=== PATIENT | male | born 1955 | race Caucasian/White ===

== ENCOUNTER 2016-08-26 14:34 | Inpatient (IN) | payer OTHER ==
[2016-08-26] MEDS ORDERED: SODIUM CHLORIDE 0.9% 500 ML IV STA (14:53)
[2016-08-26] MEDS ORDERED: RX INFO: IV CONTRAST WAS GIVEN 1 EACH MISC MISCELLANE PRN (14:53)
[2016-08-26] MEDS ORDERED: PANTOPRAZOLE 40 MG/10 ML VIAL IVP STA (14:53)
[2016-08-26] MEDS ORDERED: SODIUM CHLORIDE 0.9% 1,000 ML IV STA (14:53)
[2016-08-26] MEDS ORDERED: ONDANSETRON 4 MG/2 ML VIAL IVP STA (14:53)
[2016-08-26] MEDS ORDERED: MORPHINE SULFATE 2 MG/ML SYRINGE IVP STA (14:55)
--- NOTE | 2016-08-26 14:59 | ED ---
General Adult HPI - General Chief complaint: GI Bleed Stated complaint: rectal bleeding Time Seen by Provider: 08/26/16 14:46 Source: patient, RN notes reviewed Mode of arrival: wheelchair Limitations: no limitations - History of Present Illness Initial comments: Patient is a pleasant 60-year-old male presenting to the emergency department complaining of rectal bleeding. Patient had a couple episodes last night as well as today. Patient does have some cramping of the abdomen. Patient has some mild nausea. No vomiting. No history of similar symptoms previously. Patient does take Plavix. No history of hemorrhoids. - Related Data Home Medications Medication Instructions Recorded Confirmed Clopidogrel Bisulfate [Clopidogrel] 75 mg PO DAILY 02/04/14 08/26/16 Nitroglycerin Sl Tabs [Nitrostat] 0.4 mg SUBLINGUAL Q5M PRN 03/21/14 08/26/16 buPROPion XL [Wellbutrin XL] 300 mg PO DAILY 05/09/14 08/26/16 glipiZIDE XL [Glucotrol XL] 10 mg PO DAILY PRN 05/09/14 08/26/16 Albiglutide [Tanzeum] 30 mg SQ WE 08/26/16 08/26/16 Gabapentin [Neurontin] 300 mg PO TID 08/26/16 08/26/16 Magnesium Oxide [Mag-Ox] 400 mg PO DAILY 08/26/16 08/26/16 Potassium 99 mg PO DAILY 08/26/16 08/26/16 Previous Rx's Medication Instructions Recorded Lisinopril [Zestril] 5 mg PO DAILY #30 tab 05/12/14 Allergies Allergy/AdvReac Type Severity Reaction Status Date / Time Penicillins Allergy Unknown Verified 08/26/16 16:01 Childhood metformin AdvReac Nausea & Verified 08/26/16 16:01 Vomiting Review of Systems ROS Statement: Those systems with pertinent positive or pertinent negative responses have been documented in the HPI. ROS Other: All systems not noted in ROS Statement are negative. Constitutional: Denies: fever Eyes: Denies: eye pain ENT: Denies: ear pain Respiratory: Denies: cough Cardiovascular: Denies: chest pain Endocrine: Reports: fatigue Gastrointestinal: Reports: abdominal pain, nausea, hematochezia Genitourinary: Denies: dysuria Musculoskeletal: Denies: back pain Skin: Denies: rash Past Medical History Past Medical History: Coronary Artery Disease (CAD), Chest Pain / Angina, Diabetes Mellitus, Hyperlipidemia, Hypertension, Myocardial Infarction ([place]), Neurologic Disorder, Renal Disease Additional Past Medical History / Comment(s): SHINGLES RT SHOULDER/NECK SINCE 03-11-14 , CHRONIC BACK PAIN, LT MIDDLE FINGER INFECTION(STARTED 1.5 WEEKS AGO) Last Myocardial Infarction Date:: 2012 History of Any Multi-Drug Resistant Organisms: None Reported Past Surgical History: Bowel Resection, Heart Catheterization With Stent, Tonsillectomy Additional Past Surgical History / Comment(s): LT NEPHRECTOMY D/T NEOPLASM. HX PHIMOSIS HAD ADULT CIRCUMCISION 03-22-14, STENTS TO RCA AND LAD. Past Anesthesia/Blood Transfusion Reactions: No Reported Reaction Date of Last Stent Placement:: 05-15-08, 06-29-13, Past Psychological History: No Psychological Hx Reported Additional Psychological History / Comment(s): c/o dizziness, ataxia difficulty walking. Smoking Status: Current every day smoker Past Alcohol Use History: Occasional Additional Past Alcohol Use History / Comment(s): started smoking at age 12, quit 1 year ago Past Drug Use History: None Reported - Past Family History Father Family Medical History: Diabetes Mellitus Sister(s) Family Medical History: Deep Vein Thrombosis (DVT) General Exam Limitations: no limitations General appearance: alert, in no apparent distress Head exam: Present: atraumatic, normocephalic Eye exam: Present: normal appearance, PERRL ENT exam: Present: normal oropharynx Neck exam: Present: normal inspection Respiratory exam: Present: normal lung sounds bilaterally Cardiovascular Exam: Present: regular rate, normal rhythm Expanded Peripheral pulses: 2+: Dorsalis Pedis (R), Dorsalis Pedis (L) GI/Abdominal exam: Present: soft, tenderness (Mild upper abdominal tenderness, moderate lower abdominal tenderness.), normal bowel sounds. Absent: distended, guarding, rebound, rigid, pulsatile mass Extremities exam: Present: normal inspection. Absent: pedal edema, calf tenderness Neurological exam: Present: alert Psychiatric exam: Present: normal affect, normal mood Skin exam: Absent: rash Course Vital Signs 08/26/16 14:39 Temperature 98.5 F Pulse Rate 85 Respiratory 20 Rate Blood Pressure 148/76 O2 Sat by Pulse 95 Oximetry Medical Decision Making - Medical Decision Making Case discussed with Dr. Antoine, who will admit for Dr. Armenta. Patient updated. - Lab Data Result diagrams: 08/26/16 15:32 08/26/16 15:32 Lab Results 08/26/16 08/26/16 08/26/16 Range/Units 15:32 15:32 15:32 WBC 7.9 (3.8-10.6) k/uL RBC 5.14 (4.30-5.90) m/uL Hgb 15.7 (13.0-17.5) gm/dL Hct 46.0 (39.0-53.0) % MCV 89.6 (80.0-100.0) fL MCH 30.5 (25.0-35.0) pg MCHC 34.0 (31.0-37.0) g/dL RDW 13.8 (11.5-15.5) % Plt Count 193 (150-450) k/uL Neutrophils % 79 % Lymphocytes % 12 % Monocytes % 5 % Eosinophils % 1 % Basophils % 1 % Neutrophils # 6.2 (1.3-7.7) k/uL Lymphocytes # 0.9 L (1.0-4.8) k/uL Monocytes # 0.4 (0-1.0) k/uL Eosinophils # 0.1 (0-0.7) k/uL Basophils # 0.1 (0-0.2) k/uL PT (9.0-12.0) sec INR (<1.1) APTT (22.0-30.0) sec Sodium 140 (137-145) mmol/L Potassium 3.8 (3.5-5.1) mmol/L Chloride 103 (98-107) mmol/L Carbon Dioxide 24 (22-30) mmol/L Anion Gap 13 mmol/L BUN 11 (9-20) mg/dL Creatinine 1.01 (0.66-1.25) mg/dL Est GFR (MDRD) Af Amer >60 (>60 ml/min/1.73 sqM) Est GFR (MDRD) Non-Af >60 (>60 ml/min/1.73 sqM) Glucose 243 H (74-99) mg/dL Calcium 9.3 (8.4-10.2) mg/dL Total Bilirubin 0.9 (0.2-1.3) mg/dL AST 36 (17-59) U/L ALT 60 (21-72) U/L Alkaline Phosphatase 57 (38-126) U/L Total Creatine Kinase 109 (55-170) U/L CK-MB (CK-2) 2.6 H* (0.0-2.4) ng/mL CK-MB (CK-2) Rel Index 2.4 Troponin I <0.012 (0.000-0.034) ng/mL Total Protein 7.4 (6.3-8.2) g/dL Albumin 4.3 (3.5-5.0) g/dL Stool Occult Blood (Negative) 08/26/16 08/26/16 Range/Units 15:32 15:39 WBC (3.8-10.6) k/uL RBC (4.30-5.90) m/uL Hgb (13.0-17.5) gm/dL Hct (39.0-53.0) % MCV (80.0-100.0) fL MCH (25.0-35.0) pg MCHC (31.0-37.0) g/dL RDW (11.5-15.5) % Plt Count (150-450) k/uL Neutrophils % % Lymphocytes % % Monocytes % % Eosinophils % % Basophils % % Neutrophils # (1.3-7.7) k/uL Lymphocytes # (1.0-4.8) k/uL Monocytes # (0-1.0) k/uL Eosinophils # (0-0.7) k/uL Basophils # (0-0.2) k/uL PT 11.1 (9.0-12.0) sec INR 1.1 (<1.1) APTT 24.1 (22.0-30.0) sec Sodium (137-145) mmol/L Potassium (3.5-5.1) mmol/L Chloride (98-107) mmol/L Carbon Dioxide (22-30) mmol/L Anion Gap mmol/L BUN (9-20) mg/dL Creatinine (0.66-1.25) mg/dL Est GFR (MDRD) Af Amer (>60 ml/min/1.73 sqM) Est GFR (MDRD) Non-Af (>60 ml/min/1.73 sqM) Glucose (74-99) mg/dL Calcium (8.4-10.2) mg/dL Total Bilirubin (0.2-1.3) mg/dL AST (17-59) U/L ALT (21-72) U/L Alkaline Phosphatase (38-126) U/L Total Creatine Kinase (55-170) U/L CK-MB (CK-2) (0.0-2.4) ng/mL CK-MB (CK-2) Rel Index Troponin I (0.000-0.034) ng/mL Total Protein (6.3-8.2) g/dL Albumin (3.5-5.0) g/dL Stool Occult Blood Positive (Negative) Disposition Clinical Impression: Lower GI hemorrhage Disposition: ADMITTED IP TO THIS HOSP
[2016-08-26 15:52] LABS: Basophils # (A) 0.1 k/uL (0-0.2); Basophils % (A) 1 %; CH 31.6; CHCM 35.5; Eosinophils # (A) 0.1 k/uL (0-0.7); Eosinophils % (A) 1 %; HDW 2.86; HGB 15.7 gm/dL (13.0-17.5); Luc # (Auto) 0.21; Luc % (Auto) 3; Lymphocytes # (A) 0.9 k/uL (1.0-4.8); Lymphocytes % (A) 12 %; MCH 30.5 pg (25.0-35.0); MCV 89.6 fL (80.0-100.0); Monocytes # (A) 0.4 k/uL (0-1.0); Monocytes % (A) 5 %; Neutrophils # (A) 6.2 k/uL (1.3-7.7); Neutrophils % (A) 79 %; RBC 5.14 m/uL (4.30-5.90); RDW 13.8 % (11.5-15.5); WBC 7.9 k/uL (3.8-10.6); WBC (Perox) 7.54
[2016-08-26 15:56] LABS: INR 1.1 (<1.1); Partial Thromboplastin Time 24.1 sec (22.0-30.0); Prothrombin Time 11.1 sec (9.0-12.0)
[2016-08-26 15:59] LABS: ALT 60 U/L (21-72); AST 36 U/L (17-59); Alkaline Phosphatase 57 U/L (38-126); Anion Gap 13 mmol/L; Blood Urea Nitrogen 11 mg/dL (9-20); Calcium 9.3 mg/dL (8.4-10.2); Carbon Dioxide 24 mmol/L (22-30); Chloride 103 mmol/L (98-107); Glucose 243 mg/dL (74-99); Non-African American GFR(MDRD) >60 (>60 ml/min/1.73 sqM); Potassium 3.8 mmol/L (3.5-5.1); Sodium 140 mmol/L (137-145); Total Bilirubin 0.9 mg/dL (0.2-1.3); Total Protein 7.4 g/dL (6.3-8.2)
[2016-08-26 16:00] LABS: Creatine Kinase 109 U/L (55-170)
[2016-08-26 16:13] LABS: Creatine Kinase MB 2.6 ng/mL (0.0-2.4); Troponin I <0.012 ng/mL (0.000-0.034)
[2016-08-26] MEDS ORDERED: HYDROmorphone 1 MG/ML 1 ML SYRINGE IVP STA (16:20)
[2016-08-26] MEDS ORDERED: NALOXONE 0.4 MG/ML 1 ML VIAL IV PRN (16:40)
--- NOTE | 2016-08-26 17:09 | CT ---
EXAMINATION TYPE: CT abdomen pelvis w con DATE OF EXAM: 08/26/2016 4:53 PM COMPARISON: Prior CT scan 10 January 2014 HISTORY: Pelvic pain and rectal bleeding CT DLP: 1040 mGycm Automated exposure control for dose reduction was used. TECHNIQUE: Helical acquisition of images from the lung bases through the pelvis have been completed. CONTRAST: Performed without Oral Contrast and with IV Contrast, patient injected with 100 mL of Visipaque 320. FINDINGS: LUNG BASES: No significant abnormality is appreciated. Coronary artery calcification suspected AORTA: No significant abnormality is appreciated. LIVER/GB: The gallbladder is contracted. Liver shows low attenuation possibly due to fatty infiltrati on. PANCREAS: Suspect there is a duodenal diverticulum at the third or fourth portion, there is an air-fl uid level at the level of the common bile duct, the diverticulum-like kidney measures approximately 2 .5 cm SPLEEN: No significant abnormality is seen. Splenule is stable posteriorly. ADRENALS: No significant abnormality is seen. KIDNEYS: Left kidney is absent. Right kidney shows a large cystic focus measuring approximately 5.9 c m at the lower pole, suspect there are some nonobstructive calculi at the mid to lower pole, largest measures approximately 9 mm at the lower pole, mid pole calculus may be present measuring 5 mm. REPRODUCTIVE ORGANS: Prostate is enlarged and shows associated calcifications and/or hydrocele suspec malina the scrotum. BOWEL: Diverticular changes associated with the colon. There is no bowel obstruction. Surgical clips are present in the pelvis. FREE AIR: No Free Air visible. ASCITES: None visible. PELVIC ADENOPATHY: None visualized. RETROPERITONEAL ADENOPATHY: No Retroperitoneal Adenopathy visible. URINARY BLADDER: No significant abnormality is seen. OSSEOUS STRUCTURES: No significant abnormality is seen. IMPRESSION: DIVERTICULOSIS. INTERVAL DEVELOPMENT OF NONOBSTRUCTIVE RIGHT-SIDED NEPHROLITHIASIS. POSSIBLE FATTY IN FILTRATION OF THE LIVER VERSUS HEPATOCELLULAR DISEASE. DUODENAL DIVERTICULUM. POSTOP CHANGES.
[2016-08-26] MEDS: SODIUM CHLORIDE 0.9% 1,000 ML IV SCH (18:38)
[2016-08-26] MEDS ORDERED: GLIPIZIDE 10 MG PO PRN (18:55)
[2016-08-26 20:28] LABS: Hemoglobin A1C 7.3 % (4.2-6.1)
[2016-08-26 20:53] LABS: Glucose,Whole Blood 132 mg/dL (75-99)
[2016-08-26] MEDS: GABAPENTIN 300 MG CAP PO SCH (21:32)
[2016-08-26] MEDS: MORPHINE SULFATE 4 MG/ML SYRINGE IVP PRN (21:32)
--- NOTE | 2016-08-26 23:29 | HP ---
DATE OF ADMISSION: 08/26/2016 REASON FOR ADMISSION: Rectal bleeding. HISTORY OF PRESENTING ILLNESS: This is a 60-year-old gentleman with significant history of CAD, currently maintained on Plavix. He comes into the hospital with 2 episodes of bleeding per rectum. Patient states that he was in good health until 2 days prior to admission. States that he was driving to work, noted some distention; initially thought it was secondary to gas; however, he felt blood on his car seat. Thereafter patient was noted to have another bowel movement overnight which was bright red in color. Patient denies noticing any clots. Patient had a colonoscopy over 5 years ago and was apparently told it was within normal limits. Patient states that he does not use any significant amount of NSAIDs. Only medications are aspirin; however, for any lower extremity pain he does tend to take aspirin 325 mg, sometimes 2 even. At the time of my evaluation, patient denies any symptoms of dizziness, chest pain, nausea or vomiting. Patient states that he has some mild abdominal discomfort. He describes it as a crampy pain diffusely. No significant relief on having a bowel movement. During the episode, patient did state that he was unsteady and felt weak. Past medical history includes: 1. CAD. 2. Dyslipidemia. 3. Depression. 4. Hypertension. 5. Peripheral neuropathy. Past surgical history includes: 1. Colonoscopy. 2. Cardiac catheterization. SOCIAL HISTORY: Currently smokes cigarettes; significantly decreased. No significant alcohol use. Denies any illicit drug use. 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 FAMILY HISTORY: Not pertinent to current admission. Denies any history of colorectal cancer. REVIEW OF SYSTEMS: Fourteen-point review of system was done; none pertinent other than those mentioned above. Medications include: 1. Glipizide. 2. Wellbutrin. 3. Potassium. 4. Nitrostat. 5. Mag-Ox. 6. Vistaril. 7. Neurontin. 8. Clopidogrel. 9. Tanzeum. Medication doses were reviewed and appropriately reconciled. PHYSICAL EXAM: VITALS: Temperature 97.2, heart rate 67, blood pressure 145/77. Saturating 95% on room air. GENERALLY: Patient appears to be alert, oriented x3. HEENT: The pupils are equal and reactive to light and accommodation. HEART: S1, S2 present. No murmur appreciated. LUNGS: Good air entry. No wheezing or rhonchi noted. ABDOMINAL EXAM: Soft, nontender, no organomegaly appreciated. GENITOURINARY: No [place] in place. EXTREMITIES: Pulses can be palpated distally. Denies any tenderness on gross palpation. SKIN: On a gross skin exam does not appear to have any purpura or any skin rashes that were noted. NEUROLOGICALLY: Grossly cranial nerves 2-12 intact. No motor or sensory deficits noted. LABORATORY DATA: Hemoglobin 15.7, hematocrit 46, platelets of 193. White count 7.9. Sodium 140, potassium 3.8, chloride 103, bicarb 24. BUN 11, creatinine 1.01. Albumin of 4.3. Stool occult was positive. ASSESSMENT AND PLAN: 1. Acute lower gastrointestinal bleeding, likely a diverticular bleed. 2. Coronary artery disease. 3. Dyslipidemia. 4. Hypertension. 5. Depression. 6. Ongoing tobacco use. 7. Diabetes mellitus, type 2. 8. Diabetic neuropathy PLAN: Repeat hemoglobin in the a.m. Will discontinue and hold Plavix. Patient's last stent or PCI was over 2 years ago. Due to the acute bleed, we will hold off on all antiplatelet agents and avoid NSAID agents as well. Will start Protonix IV 40 mg; however, patient will be referred to a supervisor water softener service. Patient would benefit from a colonoscopy to delineate the site of bleeding. Again, due to the bleeding, patient's DVT prophylaxis will be maintained with SCDs. Med reconciliation with glipizide 10 mg will be done and insulin sliding scale will be initiated. Will follow.
[2016-08-27] MEDS: SODIUM CHLORIDE 0.9% 1,000 ML IV SCH ×2 (06:08→20:57)
[2016-08-27 06:43] LABS: Glucose,Whole Blood 122 mg/dL (75-99)
[2016-08-27] MEDS ORDERED: BISACODYL 5 MG TABLET.DR PO STA (09:23)
[2016-08-27 09:28] LABS: Basophils # (A) 0.1 k/uL (0-0.2); Basophils % (A) 1 %; CHCM 34.1; Eosinophils # (A) 0.2 k/uL (0-0.7); Eosinophils % (A) 2 %; HCT 44.4 % (39.0-53.0); HDW 2.89; HGB 14.6 gm/dL (13.0-17.5); Luc # (Auto) 0.21; Luc % (Auto) 3; Lymphocytes # (A) 1.1 k/uL (1.0-4.8); Lymphocytes % (A) 14 %; MCH 30.1 pg (25.0-35.0); MCHC 32.9 g/dL (31.0-37.0); MCV 91.4 fL (80.0-100.0); Mean Platelet Volume 7.2; Monocytes # (A) 0.4 k/uL (0-1.0); Monocytes % (A) 6 %; Neutrophils # (A) 5.5 k/uL (1.3-7.7); Neutrophils % (A) 74 %; RBC 4.85 m/uL (4.30-5.90); RDW 13.8 % (11.5-15.5); WBC 7.5 k/uL (3.8-10.6); WBC (Perox) 7.33
--- NOTE | 2016-08-27 09:32 | P.CONS ---
History of Present Illness - Reason for Consult Consult date: 08/27/16 Rectal bleeding Requesting physician: Mike Antoine - History of Present Illness 60-year-old gentleman patient Dr. Armenta with a past medical history of abdominal trauma with exploratory surgery 1970 followed by bowel obstruction in the with partial left colon removal, hernia repair with mesh, kidney carcinoma requiring left nephrectomy, nicotine cigarette dependency, diverticulosis, CAD Plavix maintenance, diabetes mellitus, shingles, chronic back pain, hyperlipidemia and hypertension. Presents with 2 day history of lower abdominal cramping with bright red blood per rectum. Denies hematemesis melena fever chills. No recent sick contacts or travels. No recent antibiotics. He's had about 5 burgundy red bowel movements 48 hours last bowel movement yesterday afternoon. No history of GI bleeding. Last colonoscopy more than 10 years ago. No history of EGD or peptic ulcer disease. Takes Plavix daily and occasional full-strength aspirin as needed maybe once a week for arthritic pain. No NSAIDs or alcohol. He reports an intentional weight loss of at least 40 pounds over the last several months due to homeopathic supplements and change in diet. Hemoglobin 15.7. White count 7.9. INR 1.1. BUN 11. Creatinine 1.0. Hemoccult stool positive. CT abdomen and pelvis reported diverticulosis with nonobstructing right nephrolithiasis. Review of Systems Constitutional: Denies fever, chills, sweats, weight gain, or loss. HEENT: Negative for migraines, blurred vision or loss, earaches, drainage, tinnitus, oral mucosal lesions, dysphagia, or odynophagia. Cardiac: CAD, hypertension. Hyperlipidemia. [place]. Negative for chest pain, arrhythmias, or palpitation. Respiratory: Cigarette dependency. Negative for shortness of breath, hemoptysis , cough, or sputum production. Gastrointestinal: See HPI for pertinent findings. Genitourinary: Negative for hematuria, urgency, frequency, polyuria, dysuria, or penile discharge. Musculoskeletal: Chronic back pain. Negative for muscle aches, swelling, arthritis, and arthralgias. Neurologic: Negative for stroke or TIA. Endocrine: Diabetes mellitus. Negative for thyroid problems. Nephrology: Kidney carcinoma left nephrectomy. Skin: Shingles. Negative for rash or itching. Psychiatric: Negative history for depression and anxiety All systems: negative (See HPI) Past Medical History Past Medical History: Coronary Artery Disease (CAD), Cancer, Chest Pain / Angina , CVA/TIA, Diabetes Mellitus, Hyperlipidemia, Hypertension, Myocardial Infarction ([place]), Neurologic Disorder, Renal Disease Additional Past Medical History / Comment(s): SHINGLES RT SHOULDER/NECK SINCE 2013 , CHRONIC BACK PAIN, 2015 cva/tia-no residual effects.neuropathy, 1998 lt kidney tumor(tca), has made changes in his diet and has dropped 40#. Last Myocardial Infarction Date:: 2012 History of Any Multi-Drug Resistant Organisms: None Reported Past Surgical History: Bowel Resection, Heart Catheterization With Stent, Tonsillectomy Additional Past Surgical History / Comment(s): LT NEPHRECTOMY D/T NEOPLASM. HX PHIMOSIS HAD ADULT CIRCUMCISION 03-22-14, STENTS TO RCA AND LAD.cataracts Past Anesthesia/Blood Transfusion Reactions: No Reported Reaction Date of Last Stent Placement:: 05-15-08, 06-29-13, Past Psychological History: No Psychological Hx Reported Additional Psychological History / Comment(s): c/o dizziness, ataxia difficulty walking. Smoking Status: Current every day smoker Past Alcohol Use History: Occasional Additional Past Alcohol Use History / Comment(s): started smoking at age 12, has cut down few cig day Past Drug Use History: None Reported - Past Family History Mother Additional Family Medical History / Comment(s): from complications from broken hip. dad hx lung cancer, emphysema, dm Father Family Medical History: Diabetes Mellitus Sister(s) Family Medical History: Diabetes Mellitus, Deep Vein Thrombosis (DVT) Medications and Allergies Home Medications Medication Instructions Recorded Confirmed Type Clopidogrel Bisulfate [Clopidogrel] 75 mg PO DAILY 02/04/14 08/26/16 History Nitroglycerin Sl Tabs [Nitrostat] 0.4 mg SUBLINGUAL Q5M PRN 03/21/14 08/26/16 History buPROPion XL [Wellbutrin XL] 300 mg PO DAILY 05/09/14 08/26/16 History glipiZIDE XL [Glucotrol XL] 10 mg PO DAILY PRN 05/09/14 08/26/16 History Albiglutide [Tanzeum] 30 mg SQ WE 08/26/16 08/26/16 History Gabapentin [Neurontin] 300 mg PO TID 08/26/16 08/26/16 History Magnesium Oxide [Mag-Ox] 400 mg PO DAILY 08/26/16 08/26/16 History Potassium 99 mg PO DAILY 08/26/16 08/26/16 History Allergies Allergy/AdvReac Type Severity Reaction Status Date / Time Penicillins Allergy Unknown Verified 08/26/16 16:01 Childhood metformin AdvReac Nausea & Verified 08/26/16 16:01 Vomiting Physical Exam Vitals: Vital Signs Temp Pulse Pulse Resp BP BP Pulse Ox 08/27/16 07:00 96.9 F L 63 20 142/81 97 08/26/16 23:00 97.2 F L 65 20 125/80 97 08/26/16 18:46 97.1 F L 67 16 138/76 97 08/26/16 17:51 98.3 F 72 18 140/78 97 08/26/16 17:00 97.2 F L 67 20 145/77 95 Intake and Output 08/26/16 08/27/16 08/27/16 22:59 06:59 14:59 Intake Total 300 Output Total 300 Balance 300 -300 Intake: Oral 300 Output: Urine 300 Other: # Voids 1 # Bowel Movements 2 General appearance: The patient is alert, oriented, in no acute distress. HET: Head is normocephalic and atraumatic. Pupils are equal and reactive. Oropharynx is clear without lesions. Neck: Supple without lymphadenopathy. Trachea midline. Heart: S1 S2. Regular rate and rhythm. Lungs: No crackles or wheezes are heard. Abdomen: Soft, nontender, nondistended with bowel sounds. No peritoneal signs. No palpable organomegaly or masses. Extremities: Normal skin color and turgor. No cyanosis, rash, ulceration, clubbing, or edema. Radial and pedal pulses are 2/4 bilaterally. Neurological: No focal deficits. Strength and sensation are grossly intact. Results CBC & Chem 7: 08/26/16 15:32 08/26/16 15:32 Labs: Abnormal Lab Results - Last 24 Hours (Table) 08/26/16 08/27/16 Range/Units 20:46 06:42 POC Glucose (mg/dL) 132 H 122 H (75-99) mg/dL CT scan - abdomen: report reviewed (Reviewed by Dr. Jones) Assessment and Plan (1) Rectal bleeding Narrative/Plan: Speck diverticular bleed possible ischemic colitis however chronic neoplasm cannot be entirely excluded. Status: Acute (2) Colon, diverticulosis Status: Acute (3) Kidney carcinoma Narrative/Plan: History of left nephrectomy Status: Resolved Plan: 1. Clear liquid diet. Nothing by mouth after midnight for colonoscopy evaluation tomorrow. 2. Continue to observe for additional rectal bleeding. Monitor CBC. 3. Plavix has been discontinued. No aspirin or NSAIDs. The industrial maintenance instructor has discussed the risks, benefits and alternative therapies for the above-mentioned procedure and for both sedation/analgesia as well as necessary blood product administration, if indicated, as they pertain to this patient. The patient has indicated understanding and acceptance of the risks and procedures discussed. Thank you for this kind referral and the opportunity to participate in the care of your patient. This consultation was discussed with Dr. Jones. The impression and plan of care have been directed as dictated.
[2016-08-27 09:50] LABS: ALT 62 U/L (21-72); AST 43 U/L (17-59); Alkaline Phosphatase 54 U/L (38-126); Anion Gap 7 mmol/L; Blood Urea Nitrogen 10 mg/dL (9-20); Calcium 8.9 mg/dL (8.4-10.2); Carbon Dioxide 29 mmol/L (22-30); Chloride 103 mmol/L (98-107); Glucose 193 mg/dL (74-99); Non-African American GFR(MDRD) >60 (>60 ml/min/1.73 sqM); Potassium 4.8 mmol/L (3.5-5.1); Sodium 139 mmol/L (137-145); Total Bilirubin 1.1 mg/dL (0.2-1.3); Total Protein 6.9 g/dL (6.3-8.2)
[2016-08-27] MEDS: GABAPENTIN 300 MG CAP PO SCH ×3 (10:43→20:56)
[2016-08-27] MEDS: PANTOPRAZOLE 40 MG/10 ML VIAL IV SCH (10:43)
[2016-08-27] MEDS: buPROPion XL 300 MG TAB.ER.24H PO SCH (10:43)
[2016-08-27] MEDS: glipiZIDE 5 MG TAB PO SCH ×2 (10:43→20:57)
[2016-08-27] MEDS: LISINOPRIL 5 MG TAB PO SCH (10:43)
[2016-08-27] MEDS ORDERED: MAGNESIUM CITRATE 296 ML BOTTLE PO ONE (12:00)
[2016-08-27 12:35] LABS: Glucose,Whole Blood 132 mg/dL (75-99)
--- NOTE | 2016-08-27 16:18 | P.PN ---
Subjective 60-year-old gentleman comes in the hospital with complaints of her rectal bleeding. Patient was noted to have significant diverticulosis. Patient was having some crampy abdominal pain patient was evaluated in the emergency room hemoglobin was stable Plavix was held thereafter. Serial hemoglobins were stable Today patient states that he's had more bowel movements which are induced by the laxative for a colonoscopy. Denies having any headaches blurry vision nausea Objective - Vital Signs Vital signs: Vital Signs Temp 97.5 F L 08/27/16 15:00 Pulse 69 08/27/16 15:00 Resp 16 08/27/16 15:00 BP 134/83 08/27/16 15:00 Pulse Ox 97 08/27/16 15:00 Intake & Output 08/26/16 08/27/16 08/27/16 18:59 06:59 18:59 Intake Total 300 450 Output Total 300 Balance 0 450 Intake: Intake, IV Titration 450 Amount Sodium Chloride 0.9% 1, 450 000 ml @ 75 mls/hr IV . [id number] RICKIE Rx#:[id number] Oral 300 Output: Urine 300 Other: # Voids 1 # Bowel Movements 2 - Exam Physical exam Gen. appearance oriented 3 in no distress Neck is supple no JVD Lungs good air entry clear to auscultation no rhonchi or wheezing Heart S1-S2 heard regular rate and rhythm no murmurs appreciated Abdomen is soft nontender no organomegaly bowel sounds are intact Neurologically cranial nerves II-12 grossly intact no focal motor or sensory deficits noted Skin no abnormalities appreciated - Labs CBC & Chem 7: 08/27/16 08:58 08/27/16 08:58 Labs: Abnormal Lab Results - Last 24 Hours (Table) 08/26/16 08/27/16 08/27/16 Range/Units 20:46 06:42 08:58 Glucose 193 H (74-99) mg/dL POC Glucose (mg/dL) 132 H 122 H (75-99) mg/dL 08/27/16 Range/Units 12:33 Glucose (74-99) mg/dL POC Glucose (mg/dL) 132 H (75-99) mg/dL Assessment and Plan Plan: #1 acute lower GI bleeding #2 history of CAD #3 diabetes mellitus type 2 #4 hypertension #5 dyslipidemia #6 diverticulosis #7 ongoing tobacco use ibuprofen for headaches number a 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 It's likely a diverticular bleed continue serial hemoglobin monitoring discussed the use of Tylenol rather than aspirin or NSAIDS Hemoglobin in the morning SCDs for DVT prophylaxisGlucose levels appropriate
[2016-08-27] MEDS ORDERED: PEG 3350-NA SULF,BICARB,CL/KCL 4,000 ML BOTTLE PO ONE (17:00)
[2016-08-27 17:06] LABS: Glucose,Whole Blood 81 mg/dL (75-99)
[2016-08-27 20:38] LABS: Glucose,Whole Blood 95 mg/dL (75-99)
[2016-08-28 07:29] LABS: Glucose,Whole Blood 127 mg/dL (75-99)
[2016-08-28 07:38] VITALS: BP 144/83; PULSE 61; RESP 14; TEMP 96.7
[2016-08-28 08:59] LABS: Basophils % (A) 1 %; CH 31.6; CHCM 35.9; Eosinophils # (A) 0.1 k/uL (0-0.7); Eosinophils % (A) 2 %; HCT 42.6 % (39.0-53.0); HDW 2.98; HGB 14.6 gm/dL (13.0-17.5); Luc # (Auto) 0.18; Luc % (Auto) 3; Lymphocytes # (A) 0.8 k/uL (1.0-4.8); Lymphocytes % (A) 13 %; MCH 30.5 pg (25.0-35.0); MCHC 34.4 g/dL (31.0-37.0); MCV 88.6 fL (80.0-100.0); Mean Platelet Volume 6.9; Monocytes # (A) 0.4 k/uL (0-1.0); Monocytes % (A) 7 %; Neutrophils # (A) 4.6 k/uL (1.3-7.7); Neutrophils % (A) 75 %; RBC 4.81 m/uL (4.30-5.90); RDW 13.5 % (11.5-15.5); WBC 6.1 k/uL (3.8-10.6); WBC (Perox) 6.29
[2016-08-28] MEDS: SODIUM CHLORIDE 0.9% 1,000 ML IV SCH (10:02)
[2016-08-28] MEDS: PANTOPRAZOLE 40 MG/10 ML VIAL IV SCH (10:04)
[2016-08-28] MEDS: MORPHINE SULFATE 4 MG/ML SYRINGE IVP PRN (10:22)
[2016-08-28 11:43] LABS: Glucose,Whole Blood 132 mg/dL (75-99)
[2016-08-28] MEDS ORDERED: IV FLUID CONTINUATION 1,000 ML IV ONE (12:21)
[2016-08-28] MEDS ORDERED: PROPOFOL 10 MG/ML 20 ML VIAL IV ONE (12:22)
--- NOTE | 2016-08-28 12:57 | P.PCN ---
Date of Procedure: 08/28/16 Procedure(s) Performed: BRIEF HISTORY: Patient is a 60-year-old pleasant white male, scheduled for colonoscopy as part of evaluation of acute lower GI bleed. He was he was admitted to the hospital after experiencing lower abdominal cramping followed by bright red blood per rectum for 2 days' duration. Last hemoglobin was 14 g/ dL. His last colonoscopy was more than 10 years ago. PROCEDURE PERFORMED: Colonoscopy with snare polypectomy. PREOPERATIVE DIAGNOSIS:Lower abdominal pain and acute lower GI bleed. IV sedation per Anesthesia. PROCEDURE: After informed consent was obtained, the patient, was brought into the endoscopy unit. IV sedation was administered by Anesthesia under continuous monitoring. Digital rectal examination was normal. Initially the Olympus CF- 160 flexible video colonoscope was then inserted in the rectum, gradually advanced into the cecum without any difficulty. Careful examination was performed as the scope was gradually being withdrawn. Ileocecal valve and the appendiceal orifice were visualized and appeared normal. Prep was excellent. Mucosa of the cecum, ascending colon appeared normal. In the proximal transverse colon there was a 1 cm 2 polyps removed by snare polypectomy. There was a 5 mm descending colon polyp removed by snare polypectomy. The rest of the transverse colon, descending colon, sigmoid colon, and rectum appeared normal. Scattered left sided diverticulosis seen. Retroflexion was performed in the rectum and grade 2 internal hemorrhoids were seen. The patient tolerated the procedure well. IMPRESSION: 1 cm 2 proximal transverse colon polyps status post polypectomy 5 m descending colon polyp status post polypectomy Scattered sigmoid diverticulosis Grade 2 internal hemorrhoids RECOMMENDATIONS: Findings of this examination were discussed with the patient. He was advised to follow with the biopsy results. Recent episode of bleeding was possibly diverticular in nature. He was advised to be a high-fiber diet and fiber supplements a regular basis. If the biopsy of the colon polyp shows a tubal adenoma, he can have a repeat colonoscopy in 5 years].
[2016-08-28] MEDS: LISINOPRIL 5 MG TAB PO SCH (13:16)
[2016-08-28] MEDS: glipiZIDE 5 MG TAB PO SCH (13:16)
[2016-08-28] MEDS: GABAPENTIN 300 MG CAP PO SCH (13:16)
[2016-08-28] MEDS: buPROPion XL 300 MG TAB.ER.24H PO SCH (13:17)
--- NOTE | 2016-08-28 14:17 | P.DS ---
Providers Date of admission: 08/26/16 16:41 Attending physician: Mike Antoine MD Primary care physician: [facility] Course: 60-year-old gentleman comes in the hospital with complaints of her rectal bleeding. Patient was noted to have significant diverticulosis. Patient was having some crampy abdominal pain patient was evaluated in the emergency room hemoglobin was stable Plavix was held thereafter. Serial hemoglobins were stable Today patient states that he's had more bowel movements which are induced by the laxative for a colonoscopy. Denies having any headaches blurry vision nausea Plan 2016 Patient is seen after his colonoscopy Denies having any further bleeding episodes. No active bleeding was noted patient was noted to have 2 polyps status post polypectomy, diffuse diverticulosis and internal hemorrhoids. - Exam Physical exam Gen. appearance oriented 3 in no distress Neck is supple no JVD Lungs good air entry clear to auscultation no rhonchi or wheezing Heart S1-S2 heard regular rate and rhythm no murmurs appreciated Abdomen is soft nontender no organomegaly bowel sounds are intact Neurologically cranial nerves II-12 grossly intact no focal motor or sensory deficits noted Skin no abnormalities appreciated Assessment and Plan Plan: #1 acute lower GI bleeding likely diverticular patient was also noted to have polyps diffuse diverticulosis and internal hemorrhoids no active bleeding was noted on colonoscopy recommended against using aspirin, NSAIDs. Diet regulations including high-fiber diet and regular bowel movements were discussed with the patient patient will be discharged to follow-up with Dr. Antonio to discuss biopsy results in a week. 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 Plan - Discharge Summary Discharge Medication List Clopidogrel Bisulfate [Clopidogrel] 75 mg PO DAILY 02/04/14 [History] Nitroglycerin Sl Tabs [Nitrostat] 0.4 mg SUBLINGUAL Q5M PRN 03/21/14 [History] buPROPion XL [Wellbutrin XL] 300 mg PO DAILY 05/09/14 [History] glipiZIDE XL [Glucotrol XL] 10 mg PO DAILY PRN 05/09/14 [History] Lisinopril [Zestril] 5 mg PO DAILY #30 tab 05/12/14 [Rx] Albiglutide [Tanzeum] 30 mg SQ WE 08/26/16 [History] Gabapentin [Neurontin] 300 mg PO TID 08/26/16 [History] Magnesium Oxide [Mag-Ox] 400 mg PO DAILY 08/26/16 [History] Potassium 99 mg PO DAILY 08/26/16 [History] Follow up Appointment(s)/Referral(s): Shekhar rAmenta III, MD [Primary Care Provider] - 1 Week Loly Jones MD [STAFF PHYSICIAN] - 1 Week Patient Instructions/Handouts: Gastrointestinal Bleeding (DC) Activity/Diet/Wound Care/Special Instructions: Cardiac, diabetic diet. Discharge Disposition: HOME SELF-CARE
== END 2016-08-28 14:55 | disposition home or self-care (01) | DRG 379 ==
LOC: EC 14:34 → 4MS4W 16:41
PROVIDERS: ADMIT Internal Medicine; ATTEND Internal Medicine
PROC: 0DBL8ZX Excision of Transverse Colon, Via Natural or Artificial Opening Endoscopic, Diagnostic (ICD-10-PCS; 2016-08-28)
PROC: 0DBM8ZX Excision of Descending Colon, Via Natural or Artificial Opening Endoscopic, Diagnostic (ICD-10-PCS; principal; 2016-08-28 11:30)
DX: K57.31 Diverticulosis of large intestine without perforation or abscess with bleeding (principal); E11.40 Type 2 diabetes mellitus with diabetic neuropathy, unspecified; I10 Essential (primary) hypertension; I25.10 Atherosclerotic heart disease of native coronary artery without angina pectoris; E78.5 Hyperlipidemia, unspecified; K64.1 Second degree hemorrhoids; F17.210 Nicotine dependence, cigarettes, uncomplicated; D12.3 Benign neoplasm of transverse colon; R27.0 Ataxia, unspecified; I25.2 Old myocardial infarction; F32.9 Major depressive disorder, single episode, unspecified; N20.0 Calculus of kidney; G89.29 Other chronic pain; D12.4 Benign neoplasm of descending colon; Z95.5 Presence of coronary angioplasty implant and graft; Z85.528 Personal history of other malignant neoplasm of kidney; Z90.5 Acquired absence of kidney; Z98.42 Cataract extraction status, left eye; Z86.73 Personal history of transient ischemic attack (TIA), and cerebral infarction without residual deficits; Z98.41 Cataract extraction status, right eye; Z79.02 Long term (current) use of antithrombotics/antiplatelets; Z79.84 Long term (current) use of oral hypoglycemic drugs; Z79.899 Other long term (current) drug therapy; Z79.82 Long term (current) use of aspirin
CPT/HCPCS: 36415; 45385; 74177; 80053; 82272; 82550; 82553; 83036; 84484; 85025; 85610; 85730; 88305

== ENCOUNTER 2016-10-10 12:50 | Inpatient (IN) | payer OTHER ==
[2016-10-10] MEDS ORDERED: SODIUM CHLORIDE 0.9% 1,000 ML IV STA (13:05)
[2016-10-10 13:06] LABS: Glucose,Whole Blood 245 mg/dL (75-99)
--- NOTE | 2016-10-10 13:08 | ED ---
General Adult HPI - General Chief complaint: Neuro Symptoms/Deficit Stated complaint: Paresthesia Time Seen by Provider: 10/10/16 12:57 Source: patient, RN notes reviewed Mode of arrival: ambulatory Limitations: no limitations - History of Present Illness Initial comments: Patient is a pleasant 60-year-old male presenting to the emergency Department with paresthesias. Onset was around 12:15. Patient had paresthesia of the right arm that extended to the right face. Patient states he had some difficulty swallowing. Patient states his words might be coming out somewhat slurred. Patient states there may also be some right-sided arm weakness. No history of similar symptoms previously. Symptoms have somewhat progressed since onset. - Related Data Home Medications Medication Instructions Recorded Confirmed Clopidogrel Bisulfate [Clopidogrel] 75 mg PO DAILY 02/04/14 08/26/16 Nitroglycerin Sl Tabs [Nitrostat] 0.4 mg SUBLINGUAL Q5M PRN 03/21/14 08/26/16 buPROPion XL [Wellbutrin XL] 300 mg PO DAILY 05/09/14 08/26/16 glipiZIDE XL [Glucotrol XL] 10 mg PO DAILY PRN 05/09/14 08/26/16 Albiglutide [Tanzeum] 30 mg SQ WE 08/26/16 08/26/16 Gabapentin [Neurontin] 300 mg PO TID 08/26/16 08/26/16 Magnesium Oxide [Mag-Ox] 400 mg PO DAILY 08/26/16 08/26/16 Potassium 99 mg PO DAILY 08/26/16 08/26/16 Previous Rx's Medication Instructions Recorded Lisinopril [Zestril] 5 mg PO DAILY #30 tab 05/12/14 Allergies Allergy/AdvReac Type Severity Reaction Status Date / Time Penicillins Allergy Unknown Verified 10/10/16 12:55 Childhood metformin AdvReac Nausea & Verified 10/10/16 12:55 Vomiting Review of Systems ROS Statement: Those systems with pertinent positive or pertinent negative responses have been documented in the HPI. ROS Other: All systems not noted in ROS Statement are negative. Constitutional: Denies: fever Eyes: Reports: vision change (With the right) ENT: Denies: ear pain Respiratory: Denies: cough Cardiovascular: Denies: chest pain Endocrine: Denies: fatigue Gastrointestinal: Denies: abdominal pain Genitourinary: Denies: dysuria Musculoskeletal: Denies: back pain Skin: Denies: rash Neurological: Reports: weakness, paresthesias. Denies: headache, confusion Past Medical History Past Medical History: Coronary Artery Disease (CAD), Cancer, Chest Pain / Angina , CVA/TIA, Diabetes Mellitus, Hyperlipidemia, Hypertension, Myocardial Infarction ([place]), Neurologic Disorder, Renal Disease Additional Past Medical History / Comment(s): RT SHOULDER/NECK SINCE 2013 , CHRONIC BACK PAIN, 2015 cva/tia-no residual effects.neuropathy, 1998 lt kidney tumor(tca), has made changes in his diet and has dropped 40#. Last Myocardial Infarction Date:: 2012 History of Any Multi-Drug Resistant Organisms: None Reported Past Surgical History: Bowel Resection, Heart Catheterization With Stent, Tonsillectomy Additional Past Surgical History / Comment(s): LT NEPHRECTOMY D/T NEOPLASM. HX PHIMOSIS HAD ADULT CIRCUMCISION 03-22-14, STENTS TO RCA AND LAD.cataracts Past Anesthesia/Blood Transfusion Reactions: No Reported Reaction Date of Last Stent Placement:: 05-15-08, 06-29-13, Past Psychological History: No Psychological Hx Reported Smoking Status: Current every day smoker Past Alcohol Use History: Occasional Past Drug Use History: None Reported - Past Family History Mother Additional Family Medical History / Comment(s): from complications from broken hip. dad hx lung cancer, emphysema, dm Father Family Medical History: Diabetes Mellitus Sister(s) Family Medical History: Diabetes Mellitus, Deep Vein Thrombosis (DVT) General Exam Limitations: no limitations General appearance: alert, in no apparent distress Head exam: Present: atraumatic Eye exam: Present: normal appearance, PERRL ENT exam: Present: normal oropharynx Neck exam: Present: normal inspection Respiratory exam: Present: normal lung sounds bilaterally Cardiovascular Exam: Present: regular rate, normal rhythm GI/Abdominal exam: Present: soft. Absent: tenderness Extremities exam: Present: normal inspection Neurological exam: Present: alert Expanded Neurological exam: Present: protecting the airway, other (Mild right facial droop) Speech: Present: fluid speech Cranial nerves: EOM's Intact: Abnormal Right (Slight delay with movement of the right eye), Facial Sensation: Abnormal Right (Of the lower face and midface) Cerebellar function: Finger to Nose: Abnormal Right (Patient is off approximately 1 inch with right-sided finger-nose testing) Sensory exam: Upper Extremity Light Touch: Abnormal Right (Decreased sensation) , Lower Extremity Light Touch: Abnormal Right (Decreased sensation) Motor strength exam: RUE: 5, LUE: 5, RLE: 4, LLE: 5 Eye Response: (4) open spontaneously Motor Response: (6) obeys commands Verbal Response: (5) oriented Psychiatric exam: Present: normal affect, normal mood Skin exam: Present: normal color Course Vital Signs 10/10/16 10/10/16 10/10/16 12:53 13:02 13:10 Temperature 97.7 F Pulse Rate 84 84 86 Respiratory 18 18 18 Rate Blood Pressure 157/81 166/85 162/84 O2 Sat by Pulse 98 98 98 Oximetry 10/10/16 10/10/16 13:25 13:40 Temperature Pulse Rate 80 Respiratory 18 18 Rate Blood Pressure 154/72 158/83 O2 Sat by Pulse 98 Oximetry - Reevaluation(s) Reevaluation #1: 10/10/16 13:24 Code stroke was called at 1307 p.m. Patient does meet inclusion criteria. Patient does not meet exclusion criteria. Patient is on Plavix and did have gastrointestinal bleeding around 6 weeks ago. Patient is warned of risks and benefits regarding use of TPA. Patient is also warned of my personal concern for slight increase of bleeding with gastrointestinal bleed 6 weeks ago as well as Plavix. 10/10/16 13:25 Neuro interventionalist was notified by nursing staff. Nursing staff did score NIH of 4. I also did attempt to contact patient's daughter, Dr. hernandez with no return call at this time. 10/10/16 13:33 Neuro interventionalist is currently on the phone with nursing staff and patient. 10/10/16 13:45 Patient states his symptoms have somewhat improved. Interventional list Dr. Guzman did evaluate patient and felt the NIH was 1 not recommended to have TPA he states no need for CTA at this time and just order MRI. He felt if MRI does show a large area of stroke them CTA can be considered at that time. Also recommends continuing Plavix and IV fluids. 10/10/16 13:48 Patient was updated on results and plan. Dr. Montes was paged for admission. 10/10/16 13:56 Case was discussed in detail with Dr. Esqueda, who will admit for Dr. Armenta. Dr. hernandez was also updated. This was requested by the patient. EKG Findings - EKG Comments: EKG Findings:: Sinus rhythm at 84 with a first-degree AV block. UT 210. QRS 108. QT 378. QTC 446. Left axis. Normal QRS. Normal ST-T. Medical Decision Making - Lab Data Result diagrams: 10/10/16 13:05 10/10/16 13:05 Lab Results 10/10/16 10/10/16 10/10/16 Range/Units 13:02 13:05 13:05 WBC 8.9 (3.8-10.6) k/uL RBC 5.42 (4.30-5.90) m/uL Hgb 16.9 (13.0-17.5) gm/dL Hct 49.3 (39.0-53.0) % MCV 91.0 (80.0-100.0) fL MCH 31.2 (25.0-35.0) pg MCHC 34.3 (31.0-37.0) g/dL RDW 13.8 (11.5-15.5) % Plt Count 205 (150-450) k/uL Neutrophils % 77 % Lymphocytes % 12 % Monocytes % 6 % Eosinophils % 2 % Basophils % 1 % Neutrophils # 6.8 (1.3-7.7) k/uL Lymphocytes # 1.1 (1.0-4.8) k/uL Monocytes # 0.5 (0-1.0) k/uL Eosinophils # 0.2 (0-0.7) k/uL Basophils # 0.1 (0-0.2) k/uL PT (9.0-12.0) sec INR (<1.1) APTT (22.0-30.0) sec Sodium 139 (137-145) mmol/L Potassium 4.6 (3.5-5.1) mmol/L Chloride 103 (98-107) mmol/L Carbon Dioxide 25 (22-30) mmol/L Anion Gap 11 mmol/L BUN 12 (9-20) mg/dL Creatinine 1.10 (0.66-1.25) mg/dL Est GFR (MDRD) Af Amer >60 (>60 ml/min/1.73 sqM) Est GFR (MDRD) Non-Af >60 (>60 ml/min/1.73 sqM) Glucose 229 H (74-99) mg/dL POC Glucose (mg/dL) 245 H (75-99) mg/dL POC Glu [employer] Helper ID Reynaldo Morse Calcium 9.7 (8.4-10.2) mg/dL Total Bilirubin 0.7 (0.2-1.3) mg/dL AST 38 (17-59) U/L ALT 69 (21-72) U/L Alkaline Phosphatase 69 (38-126) U/L Total Creatine Kinase (55-170) U/L CK-MB (CK-2) (0.0-2.4) ng/mL CK-MB (CK-2) Rel Index Troponin I (0.000-0.034) ng/mL Total Protein 7.2 (6.3-8.2) g/dL Albumin 4.5 (3.5-5.0) g/dL 10/10/16 10/10/16 Range/Units 13:05 13:05 WBC (3.8-10.6) k/uL RBC (4.30-5.90) m/uL Hgb (13.0-17.5) gm/dL Hct (39.0-53.0) % MCV (80.0-100.0) fL MCH (25.0-35.0) pg MCHC (31.0-37.0) g/dL RDW (11.5-15.5) % Plt Count (150-450) k/uL Neutrophils % % Lymphocytes % % Monocytes % % Eosinophils % % Basophils % % Neutrophils # (1.3-7.7) k/uL Lymphocytes # (1.0-4.8) k/uL Monocytes # (0-1.0) k/uL Eosinophils # (0-0.7) k/uL Basophils # (0-0.2) k/uL PT 10.7 (9.0-12.0) sec INR 1.1 (<1.1) APTT 23.9 (22.0-30.0) sec Sodium (137-145) mmol/L Potassium (3.5-5.1) mmol/L Chloride (98-107) mmol/L Carbon Dioxide (22-30) mmol/L Anion Gap mmol/L BUN (9-20) mg/dL Creatinine (0.66-1.25) mg/dL Est GFR (MDRD) Af Amer (>60 ml/min/1.73 sqM) Est GFR (MDRD) Non-Af (>60 ml/min/1.73 sqM) Glucose (74-99) mg/dL POC Glucose (mg/dL) (75-99) mg/dL POC Glu [employer] Operator Helper ID Calcium (8.4-10.2) mg/dL Total Bilirubin (0.2-1.3) mg/dL AST (17-59) U/L ALT (21-72) U/L Alkaline Phosphatase (38-126) U/L Total Creatine Kinase 98 (55-170) U/L CK-MB (CK-2) 2.3 (0.0-2.4) ng/mL CK-MB (CK-2) Rel Index 2.3 Troponin I <0.012 (0.000-0.034) ng/mL Total Protein (6.3-8.2) g/dL Albumin (3.5-5.0) g/dL - Radiology Data Radiology results: image reviewed (Computed tomography scan of the brain shows no acute hemorrhage or mass effect. Nonspecific white matter findings appear stable from previous. Suspect stable remote lacunar infarcts involving the basal ganglia.) Critical Care Time Critical Care Time: Yes Total Critical Care Time: 32 Disposition Clinical Impression: Cerebrovascular accident Disposition: ADMITTED IP TO THIS HOSP Referrals: Shekhar Armenta III, MD [Primary Care Provider] - 1-2 days Time of Disposition: 13:57
[2016-10-10 13:19] LABS: Basophils # (A) 0.1 k/uL (0-0.2); Basophils % (A) 1 %; CHCM 35.4; Eosinophils # (A) 0.2 k/uL (0-0.7); Eosinophils % (A) 2 %; HCT 49.3 % (39.0-53.0); HDW 2.76; HGB 16.9 gm/dL (13.0-17.5); Luc # (Auto) 0.23; Luc % (Auto) 3; Lymphocytes # (A) 1.1 k/uL (1.0-4.8); Lymphocytes % (A) 12 %; MCH 31.2 pg (25.0-35.0); MCHC 34.3 g/dL (31.0-37.0); Mean Platelet Volume 7.3; Monocytes # (A) 0.5 k/uL (0-1.0); Monocytes % (A) 6 %; Neutrophils # (A) 6.8 k/uL (1.3-7.7); Neutrophils % (A) 77 %; RBC 5.42 m/uL (4.30-5.90); RDW 13.8 % (11.5-15.5); WBC 8.9 k/uL (3.8-10.6); WBC (Perox) 8.71
[2016-10-10 13:27] LABS: INR 1.1 (<1.1); Partial Thromboplastin Time 23.9 sec (22.0-30.0); Prothrombin Time 10.7 sec (9.0-12.0)
--- NOTE | 2016-10-10 13:28 | CT ---
EXAMINATION TYPE: CT brain wo con for TPA DATE OF EXAM: 10/10/2016 COMPARISON: 03/15/2015 HISTORY: Rt Neuro Deficit CT DLP: 1064.3 mGycm Automated exposure control for dose reduction was used. FINDINGS: Nonspecific hypoattenuation within the white matter was seen on the previous exam. No midline shift. No diagnostic evidence of acute hemorrhage. Calvarium intact. Area of low attenuation within the left basal ganglia was present on the previous exam. Similar findi ng within the right basal ganglia also stable suggestive of remote lacunar infarctions. Density in the visualized vasculature appears similar. No diagnostic evidence of a hyperdense artery sign. Extensive vascular calcifications of the vertebral arteries and evidence of atherosclerotic arin nge of the intracranial vasculature. IMPRESSION: NO ACUTE HEMORRHAGE OR MASS EFFECT. IF THERE IS CONCERN FOR ACUTE ISCHEMIA CONSIDER DIFFUSION-WEIGHTE D MRI. NONSPECIFIC WHITE MATTER FINDINGS APPEAR STABLE FROM THE PREVIOUS EXAM. SUSPECTED STABLE REMOTE LACUNAR INFARCTIONS INVOLVING THE BASAL GANGLIA.
[2016-10-10 13:29] LABS: ALT 69 U/L (21-72); AST 38 U/L (17-59); Alkaline Phosphatase 69 U/L (38-126); Anion Gap 11 mmol/L; Blood Urea Nitrogen 12 mg/dL (9-20); Calcium 9.7 mg/dL (8.4-10.2); Carbon Dioxide 25 mmol/L (22-30); Chloride 103 mmol/L (98-107); Glucose 229 mg/dL (74-99); Non-African American GFR(MDRD) >60 (>60 ml/min/1.73 sqM); Potassium 4.6 mmol/L (3.5-5.1); Sodium 139 mmol/L (137-145); Total Bilirubin 0.7 mg/dL (0.2-1.3); Total Protein 7.2 g/dL (6.3-8.2)
[2016-10-10 13:40] LABS: Creatine Kinase 98 U/L (55-170)
[2016-10-10 13:54] LABS: Creatine Kinase MB 2.3 ng/mL (0.0-2.4); Troponin I <0.012 ng/mL (0.000-0.034)
[2016-10-10] MEDS ORDERED: ASPIRIN 325 MG TAB PO STA (14:03)
[2016-10-10] MEDS ORDERED: CLOPIDOGREL 75 MG TAB PO SCH (14:15)
--- NOTE | 2016-10-10 14:31 | XR ---
EXAMINATION TYPE: XR chest 2V DATE OF EXAM: 10/10/2016 COMPARISON: Prior chest x-ray 03/15/2015 HISTORY: Altered mental status TECHNIQUE: Frontal and lateral views of the chest are obtained. FINDINGS: There is no focal air space opacity, pleural effusion, or pneumothorax seen. The cardiac silhouette size is within normal limits. There are overlying cardiac leads. Patient is rotated. The re may be spinal curvature. Coronary artery stent is present. The osseous structures are intact. IMPRESSION: No acute cardiopulmonary process.
[2016-10-10] MEDS: SODIUM CHLORIDE 0.9% 1,000 ML IV SCH (15:04)
[2016-10-10] MEDS ORDERED: traMADol 50 MG TAB PO PRN ×2 (15:27→16:14)
[2016-10-10] MEDS ORDERED: ALBUTEROL NEBULIZED 2.5 MG/3 ML INHALATION PRN (16:12)
[2016-10-10] MEDS ORDERED: NITROGLYCERIN SL TABS 0.4 MG TAB SUBLINGUAL PRN (16:12)
[2016-10-10 17:05] LABS: Glucose,Whole Blood 143 mg/dL (75-99)
[2016-10-10] MEDS: INSULIN LISPRO (humaLOG) 300 UNIT/3 ML VIAL SQ SCH ×2 (17:19→21:26)
[2016-10-10 17:40] LABS: Hemoglobin A1C 6.8 % (4.2-6.1)
--- NOTE | 2016-10-10 18:29 | P.CONS ---
History of Present Illness - Reason for Consult Consult date: 10/10/16 Stroke - Chief Complaint Right-sided numbness and weakness, dysarthria - History of Present Illness This pleasant 60-year-old male evaluated by the neurology service for the above complaints. He presented to the [facility] emergency room around noon today with numbness of the right side of the face right arm and right leg. Onset was during lunch when he started to get some right sided tongue weakness that progressed to the face he then developed some trouble swallowing his meal. His speech became slurred and he had some right arm and leg numbness. She has a history of fairly significant cardiovascular disease with stenting. His symptoms persisted in the emergency room. Code stroke was called and a neuro- interventionalists was notified. He was found not to be a candidate to receive TPA. But if the MRI does show a large area of stroke a CTA could be per form. He was started on Plavix. His labs were relatively unremarkable. Initial CT of the brain showed no acute intracranial abnormalities. There were some previous nonspecific white matter changes. There was also a suspected stable remote lacunar infarct of the basal ganglia. At the time of my exam he is resting comfortably eating his lunch in bed. He is having no swallowing difficulties. Review of Systems All systems: negative Past Medical History Past Medical History: Coronary Artery Disease (CAD), Cancer, Chest Pain / Angina , CVA/TIA, Diabetes Mellitus, GI Bleed, Hyperlipidemia, Hypertension, Myocardial Infarction ([place]), Neurologic Disorder, Renal Disease Additional Past Medical History / Comment(s): SHINGLES 2014 RT SHOULDER/NECK PAIN SINCE. C-DIFF 2012. DIVERTICUALR DISEASE, neuropathy, 1998 lt kidney tumor (ca), has made changes in his diet and has dropped 40-45 #.CYST ON RT KIDNEY Last Myocardial Infarction Date:: 2012 History of Any Multi-Drug Resistant Organisms: None Reported Past Surgical History: Bowel Resection, Heart Catheterization With Stent, Hernia Repair, Tonsillectomy Additional Past Surgical History / Comment(s): 1998 TRANSITIONAL CELL CA " LT NEPHRECTOMY ,URETER AND PART OF BLADDER REMOVED,AFTERWARDS SWOLLEN LYMPH NODES WERE REMOVED- POSITIVE FOR NON HODGKINS LYMPHOMA BUT F/U PET SCAN-NO FURTHER CANCER"DEVELOPED POST OP INFECTION HAD PICC LINE FOR ABX. HX PHIMOSIS HAD ADULT CIRCUMCISION 03-22-14, STENTS TO RCA AND LAD.cataracts. IN THE 1970'S HAD A PIECE OF METAL REMOVED FROM ABD - DEVELOPED SCAR TISSUE AND HAD PART OF LARGE INTESTINE REMOVED.2007 ABD HERNIA REPAIR. SX FOR SLEEP APNEA. COLONOSCOPY/ POLYPECTOMY. Past Anesthesia/Blood Transfusion Reactions: No Reported Reaction Date of Last Stent Placement:: 05-15-08, 06-29-13, Past Psychological History: No Psychological Hx Reported Additional Psychological History / Comment(s): PT IS INDEPENDANT. LIVES ALONE- NO PETS. NO OUTSIDE ERVICES RECIEVED, NO MEDICAL EQUIPMENT. 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 WHEN YOUNGER SERVED IN THE [employer]. Smoking Status: Current every day smoker - Past Family History Mother Additional Family Medical History / Comment(s): from complications from broken hip. dad hx lung cancer, emphysema, dm Father Family Medical History: Diabetes Mellitus Sister(s) Family Medical History: Diabetes Mellitus, Deep Vein Thrombosis (DVT) Medications and Allergies Home Medications Medication Instructions Recorded Confirmed Type Clopidogrel Bisulfate [Clopidogrel] 75 mg PO DAILY 02/04/14 10/10/16 History Nitroglycerin Sl Tabs [Nitrostat] 0.4 mg SUBLINGUAL Q5M PRN 03/21/14 10/10/16 History Albiglutide [Tanzeum] 50 mg SQ WE 08/26/16 10/10/16 History Gabapentin [Neurontin] 300 mg PO QAM 08/26/16 10/10/16 History Potassium 99 mg PO DAILY 08/26/16 10/10/16 History Albuterol Sulfate [Ventolin Hfa] 2 puff INHALATION RT-Q4H PRN 10/10/16 10/10/16 History Atorvastatin Calcium [Lipitor] 20 mg PO DAILY 10/10/16 10/10/16 History Cinnamon Bark [Cinnamon] 500 mg PO DAILY 10/10/16 10/10/16 History Furosemide [Lasix] 20 mg PO DAILY PRN 10/10/16 10/10/16 History Gabapentin [Neurontin] 600 mg PO HS 10/10/16 10/10/16 History Sildenafil Citrate [Sildenafil] 20 - 80 mg PO DAILY 10/10/16 10/10/16 History glipiZIDE [Glucotrol] 10 mg PO BID 10/10/16 10/10/16 History traMADol HCL [Ultram] 100 mg PO Q6HR PRN 10/10/16 10/10/16 History Allergies Allergy/AdvReac Type Severity Reaction Status Date / Time Penicillins Allergy Unknown Verified 10/10/16 14:31 Childhood metformin AdvReac Nausea & Verified 10/10/16 14:31 Vomiting Physical Exam Vitals: Vital Signs Temp Pulse Pulse Resp BP BP Pulse Ox 10/10/16 16:00 97.6 F 71 16 142/74 97 10/10/16 14:12 75 18 138/65 98 10/10/16 13:55 76 18 144/70 98 10/10/16 13:40 80 18 158/83 98 10/10/16 13:25 18 154/72 10/10/16 13:10 86 18 162/84 98 10/10/16 13:02 84 18 166/85 98 10/10/16 12:53 97.7 F 84 18 157/81 98 Intake and Output 10/10/16 10/10/16 10/10/16 06:59 14:59 22:59 Other: Weight 88.451 kg Patient Weight 10/11/16 06:59 Weight 88.451 kg - Constitutional General appearance: average body habitus, cooperative, no acute distress - EENT Chronic mild right sided strabismus with slow lateral gaze. Patient states this is not a new finding. Eyes: no abnormal pupil, no EOMI, PERRLA, no ptosis ENT: hearing grossly normal - Neck Neck: normal ROM, no rigidity - Respiratory Respiratory: negative: prolonged expiration, prolonged inspiration - Cardiovascular Rhythm: regular - Gastrointestinal General gastrointestinal: no distended, no tenderness - Neurologic Patient is alert awake and oriented 3. Speech may be mildly dysarthric. Naming is intact. Strength is 4+ out of 5 right upper extremity and right lower extremity. 5 out of 5 and left upper and lower extremities. There is a sensory deficit to the right side of the face, the right arm, and the right lower extremity. There is no pronator drift. There is dysmetria and dysdiadochokinesia on the right side. He understood 2 through 12 are otherwise intact. Romberg is negative. Tremors or seizure-like activities are seen. Results CBC & Chem 7: 10/10/16 13:05 10/10/16 13:05 Labs: Abnormal Lab Results - Last 24 Hours (Table) 10/10/16 10/10/16 10/10/16 Range/Units 13:02 13:05 15:05 Glucose 229 H (74-99) mg/dL POC Glucose (mg/dL) 245 H (75-99) mg/dL Hemoglobin A1c 6.8 H (4.2-6.1) % 10/10/16 Range/Units 17:03 Glucose (74-99) mg/dL POC Glucose (mg/dL) 143 H (75-99) mg/dL Hemoglobin A1c (4.2-6.1) % Assessment and Plan (1) Numbness on right side Status: Acute (2) Right sided weakness Status: Acute (3) Dysarthria Status: Acute (4) Dysphagia Status: Resolved (5) Cerebrovascular accident Status: Acute (6) CAD (coronary artery disease) Status: Chronic (7) HTN (hypertension) Status: Chronic (8) Hyperlipidemia Status: Chronic Plan: He has likely suffered a stroke of the left middle cerebral artery distribution. An MRI has been performed and we are waiting results of that. Physical therapy occupational therapy and speech therapy have been consult it. He is currently on Plavix and Lipitor. I have ordered a fasting lipid panel and serum homocysteine level. We're also waiting results of carotid Doppler and I believe and echocardiogram. Continue neurological checks. I will continue to follow and make further recommendations based on the above studies. I have reviewed the history and physical on the above patient. I have reviewed the above note, and agree.
--- NOTE | 2016-10-10 19:42 | US ---
EXAMINATION TYPE: US carotid duplex BILAT DATE OF EXAM: 10/10/2016 COMPARISON: NONE CLINICAL HISTORY: Stenosis. EXAM MEASUREMENTS: RIGHT: Peak Systolic Velocity (PSV) cm/sec ----- Right CCA: 83.3 ----- Right ICA: 76.0 ----- Right ECA: 72.7 ICA/CCA ratio: 0.9 RIGHT: End Diastole cm/sec ----- Right CCA: 25.2 ----- Right ICA: 21.2 ----- Right ECA: 8.7 LEFT: Peak Systolic Velocity (PSV) cm/sec ----- Left CCA: 25.2 ----- Left ICA: 21.2 ----- Left ECA: 8.7 ICA/CCA ratio: 0.9 LEFT: End Diastole cm/sec ----- Left CCA: 110.7 ----- Left ICA: 81.7 ----- Left ECA: 81.1 VERTEBRALS (direction of flow): Right Vertebral: Antegrade Left Vertebral: Antegrade Mild plaque, no significant velocity elevations. IMPRESSION: 1. Intimal thickening without significant flow-limiting stenosis. 2. There are some small plaques scattered within the carotid bifurcation region without stenosis. Criteria for Assigning % of Stenosis / Diameter reduction (Estimation based on the indirect measurements of the internal carotid artery velocities (ICA PSV). 1. Normal (no stenosis)=ICA PSV < 125 cm/s: ratio < 2.0: ICA EDV<40 cm/s. 2. Less than 50% stenosis=ICA PSV < 125 cm/s: ratio < 2.0: ICA EDV<40 cm/s. 3. 50 to 69% stenosis=ICA PSV of 125 to 230 cm/s: ration 2.0 ? 4.0: ICA EDV 40-100 cm/s. 4. Greater than 70% stenosis to near occlusion= ICA PSV > 230 cm/s: ratio > 4.0: ICA EDV > 100 cm/s. 5. Near occlusion= ICA PSV velocities may be low or undetectable: variable ratio and ICA EDV. 6. Total occlusion=unable to detect flow.
[2016-10-10] MEDS: glipiZIDE 10 MG TAB PO SCH (20:05)
--- NOTE | 2016-10-10 20:10 | MR ---
EXAMINATION TYPE: MR brain wo con DATE OF EXAM: 10/10/2016 COMPARISON: 05/10/2014 HISTORY: R/O CVA Facial Numbness with Slurred Speech CONTRAST: Performed utilizing 0 mL intravenous MultiHance gadolinium contrast. TECHNIQUE: Multiplanar, multiecho imaging on a 3.0 Nat magnet is performed through the brain. Stud y is performed within 24 hours of arrival to the hospital. The craniovertebral junction is normal. The pituitary is normal. Diffusion-weighted imaging is performed. No abnormal hyperintensity is present to suggest an acute i ntracranial infarct or acute ischemic change. There are scattered punctate areas of hyperintensity on T2 and Inversion Recovery weighted sequences which are non-specific but can be related to microvascular ischemic changes. This may be slightly mor e prevalent than on the 2014 comparison. Differential could include vasculitis Lyme disease and multi ple sclerosis. Ventricles and sulci are slightly prominent for the patient age. IMPRESSIONS: 1. Increasing periventricular white matter changes most likely on the basis of white matter ischemia. This is increasing from May 10, 2014 comparison.
[2016-10-10 20:51] LABS: Glucose,Whole Blood 121 mg/dL (75-99)
[2016-10-10] MEDS ORDERED: GABAPENTIN 300 MG CAP PO SCH (21:00)
--- NOTE | 2016-10-10 21:22 | HP ---
DATE OF ADMISSION: 10/10/2016 Patient is a pleasant 60 -year-old gentleman who came in complaints of paresthesias of the right side of the body including right side of the face, right hand and right leg with some weakness in the right arm and right leg along with some facial droop towards the right side and patient was evaluated by interventional services in the ER after he came in which appears like between an hour or two after his symptoms. Patient has some difficulty swallowing as well as speech abnormality, all of which he is getting better at this point of time. Patient still has 4+/5 strength in the right upper limb and right lower limb. Reflexes are essentially within normal limits. The patient's symptoms are completely resolving including speech abnormality. Neurology was consulted. Patient is already on aspirin and Plavix at home. CT of the head did not show any acute abnormality. Patient is undergoing brain MRA, results of which are pending. Patient already underwent carotid Doppler, the results of which are still pending. Patient had a remote lacunar infarctions in the basal ganglia from the past, although there is no acute hemorrhage on the CT of the brain and patient may need a CT angiogram of the head and neck, although that patient will be left to neurology who already evaluated the patient. Echocardiogram is being obtained. REVIEW OF SYSTEMS: CONSTITUTIONAL: No fever, no malaise, no fatigue. HEENT: No recent visual problems or hearing problems. Denied any sore throat. CARDIOVASCULAR: No chest pain, orthopnea, PND, no palpitations, no syncope. PULMONARY: No shortness of breath, no cough, no hemoptysis. GASTROINTESTINAL: No diarrhea, no nausea, no vomiting, no abdominal pain. Normoactive bowel sounds. NEUROLOGICAL: As described in HPI. HEMATOLOGICAL: Denies any bleeding or petechiae. GENITOURINARY: Denies any burning micturition, frequency, or urgency. MUSCULOSKELETAL/RHEUMATOLOGICAL: Denies any joint pain, swelling, or any muscle pain. ENDOCRINE: Denies any polyuria or polydipsia. The rest of the 14 point review of systems is negative. Home Medications include: 1. Plavix. 2. Nitroglycerin. 3. Bupropion. 4. Glipizide. 5. Tanzium. 6. Gabapentin. 7. Magnesium oxide. 8. Potassium. 9. Lisinopril. ALLERGY TO PENICILLINS AND METFORMIN. Patient is presently on aspirin here. The patient states he does take Plavix as well at home. Patient takes aspirin as well at home and patient is on Plavix definitely at home. 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 SOCIAL HISTORY: Patient continues to smoke a pack per day. Denied any alcohol abuse or drug abuse. FAMILY HISTORY: Mother of complications from broken hip. History of lung cancer and emphysema in mother. Father had diabetes mellitus. Sister had diabetes mellitus and DVT. PHYSICAL EXAMINATION: VITAL SIGNS: Temperature 97.6. pulse 75, respiratory rate of 16, blood pressure is 142/74, saturating at 97% on 2 L O2 nasal cannula, 97% on room air. GENERAL: The patient is alert and oriented x3, not in any acute distress. Well developed, well nourished. HEENT: Pupils are round and equally reacting to light. EOMI. No scleral icterus. No conjunctival pallor. Normocephalic, atraumatic. No pharyngeal erythema. No thyromegaly. CARDIOVASCULAR: S1 and S2 present. No murmurs, rubs, or gallops. PULMONARY: Chest is clear to auscultation, no wheezing or crackles. ABDOMEN: Soft, nontender, nondistended, normoactive bowel sounds. No palpable organomegaly. MUSCULOSKELETAL: No joint swelling or deformity. EXTREMITIES: No cyanosis, clubbing, or pedal edema. NEUROLOGICAL: Neurological examination weakness in the right upper limb and lower limb as mentioned above. Facial droop as mentioned above. SKIN: No rashes. LABORATORY DATA: Blood glucose elevated to 229. The rest of the lab data is essentially within normal limits. ASSESSMENT AND PLAN: 1. Possible transient ischemic attack involving the right side of the body and left middle cerebral artery territory and perforating branch of the middle cerebral artery probably in the intercapsillary area. Patient's symptoms are already resolving. MRA of the brain and carotid Doppler as mentioned above. Continue with antiplatelet therapy as mentioned above. It appears like patient states he takes both aspirin and Plavix, although it appears like patient is only on Plavix at home. Anyways, patient is on both of these medications. We will get opinion of neurology regarding antiplatelet therapy. 2. Hyperlipidemia. Obtain lipid panel for tomorrow morning, continue with his home dose of Lipitor. Patient may need a higher dose of Lipitor, which will be changed to 40 mg. 3. Hypertension ( ) permissive hypertension. The patient's diuretic therapy will be discontinued. 4. Acute renal failure. Possibly chronic kidney disease secondary to diabetic nephropathy. 5. Type 2 diabetes mellitus, continue with his home regimen along with sliding scale insulin and titrate depending on his insulin requirement. 6. Coronary artery disease, myocardial infarction in the past with stents in the past. Patient is not on beta myriam at this point of time because of his previous history of severe bradycardia from beta blockers. 7. Nicotine abuse. Extensive counseling was provided regarding that. Patient probably can be discharged tomorrow after completion of his work-up and evaluation of his carotids and recommendations from neurology regarding antiplatelet therapy.
[2016-10-10 22:40] VITALS: RESP 18
[2016-10-10 23:47] LABS: Glucose,Whole Blood 76 mg/dL (75-99)
[2016-10-10] MEDS ORDERED: RX INFO: IV CONTRAST WAS GIVEN 1 EACH MISC MISCELLANE PRN (23:51)
[2016-10-11 00:17] LABS: Basophils # (A) 0.1 k/uL (0-0.2); Basophils % (A) 1 %; CH 31.8; CHCM 34.9; Eosinophils # (A) 0.3 k/uL (0-0.7); Eosinophils % (A) 3 %; HCT 49.7 % (39.0-53.0); HDW 2.75; HGB 16.2 gm/dL (13.0-17.5); Luc # (Auto) 0.27; Luc % (Auto) 3; Lymphocytes # (A) 2.1 k/uL (1.0-4.8); Lymphocytes % (A) 25 %; MCH 29.9 pg (25.0-35.0); MCHC 32.7 g/dL (31.0-37.0); MCV 91.5 fL (80.0-100.0); Mean Platelet Volume 7.2; Monocytes # (A) 0.5 k/uL (0-1.0); Monocytes % (A) 6 %; Neutrophils # (A) 5.1 k/uL (1.3-7.7); Neutrophils % (A) 61 %; RBC 5.43 m/uL (4.30-5.90); RDW 13.8 % (11.5-15.5); WBC 8.3 k/uL (3.8-10.6); WBC (Perox) 8.05
--- NOTE | 2016-10-11 00:23 | CT ---
EXAM: CT Head Without Intravenous Contrast CLINICAL HISTORY: Reason: Neuro Deficits TECHNIQUE: Axial computed tomography images of the head/brain without intravenous contrast. CTDI is 57.4 mGy and DLP is 1116 mGy-cm. This CT exam was performed using one or more of the following dose reduction techniques: automated exposure control, adjustment of the mA and/or kV according to patient size, and/or use of iterative reconstruction technique. Coronal and sagittal reformatted images were created and reviewed. COMPARISON: MRI dated 10/10/[address] dated 10/10/16 performed 10 hours prior. FINDINGS: Brain: Mild chronic small vessel ischemic change. Global volume loss. No evolving territory infarction. No intracranial hemorrhage, mass effect or edema. Ventricles: Unremarkable. No ventriculomegaly. Bones/joints: Unremarkable. No acute fracture. Soft tissues: Unremarkable. Vasculature: Prominent calcification seen within the region of the left vertebral artery, previously seen. Sinuses: Left maxillary sinus mucous retention cyst. Mild mucosal thickening of the ethmoid air cells. Mastoid air cells: Unremarkable as visualized. No mastoid effusion. IMPRESSION: Mild chronic small vessel ischemic change. Global volume loss. No evolving territory infarction.
[2016-10-11 00:29] LABS: INR 1.1 (<1.1); Partial Thromboplastin Time 24.9 sec (22.0-30.0); Prothrombin Time 10.8 sec (9.0-12.0)
--- NOTE | 2016-10-11 00:30 | CT ---
EXAM: CT Angiography Head With Intravenous Contrast CLINICAL HISTORY: Reason: Neuro Deficits TECHNIQUE: Axial computed tomographic angiography images of the head with intravenous contrast using CT angiography protocol. Radiation dose of CTA Head and Neck: CTDI is 7.5 mGy and DLP is 302.1 mGy-cm. This CT exam was performed using one or more of the following dose reduction techniques: automated exposure control, adjustment of the mA and/or kV according to patient size, and/or use of iterative reconstruction technique. MIP reconstructed images were created and reviewed. Coronal and sagittal reformatted images were created and reviewed. COMPARISON: No relevant prior studies available. FINDINGS: Right internal carotid artery: Moderate stenosis of the supraclinoid segment of the right carotid siphon. No aneurysm. Right anterior cerebral artery: Unremarkable. No occlusion or significant stenosis. No aneurysm. Right middle cerebral artery: Unremarkable. No occlusion or significant stenosis. No aneurysm. Right posterior cerebral artery: Unremarkable. No occlusion or significant stenosis. No aneurysm. Right vertebral artery: Unremarkable as visualized. Left internal carotid artery: No acute findings. Intracranial segment is patent with no significant stenosis. No aneurysm. Left anterior cerebral artery: Unremarkable. No occlusion or significant stenosis. No aneurysm. Left middle cerebral artery: Unremarkable. No occlusion or significant stenosis. No aneurysm. Left posterior cerebral artery: There is a cut off of the left MACHINE SHOP INSPECTOR in the distal P1 segment. There is distal enhancement. Left vertebral artery: Severe focal stenosis of the left vertebral artery. Basilar artery: Unremarkable. No occlusion or significant stenosis. No aneurysm. IMPRESSION: 1. There is a cut off of the left MACHINE SHOP INSPECTOR in the distal P1 segment. There is distal enhancement. 2. Severe focal stenosis of the left vertebral artery. EXAM: CT Angiography Neck With Intravenous Contrast CLINICAL HISTORY: Reason: Neuro Deficits TECHNIQUE: Axial computed tomographic angiography images of the neck with intravenous contrast using CT angiography protocol. Radiation dose of CTA Head and Neck: CTDI is 7.5 mGy and DLP is 302.1 mGy-cm. This CT exam was performed using one or more of the following dose reduction techniques: automated exposure control, adjustment of the mA and/or kV according to patient size, and/or use of iterative reconstruction technique. MIP reconstructed images were created and reviewed. Coronal and sagittal reformatted images were created and reviewed. COMPARISON: No relevant prior studies available. FINDINGS: VASCULATURE: Right common carotid artery: Unremarkable. No significant stenosis. No dissection or occlusion. Right internal carotid artery: Plaques seen within the right proximal ICA with no significant stenosis. No dissection or occlusion. Right external carotid artery: Unremarkable. No occlusion. Right vertebral artery: Unremarkable. No significant stenosis. No dissection or occlusion. Left common carotid artery: Unremarkable. No significant stenosis. No dissection or occlusion. Left internal carotid artery: Plaque seen within the left proximal ICA with no significant stenosis. No dissection or occlusion. Left external carotid artery: Unremarkable. No occlusion. Left vertebral artery: Unremarkable. No significant stenosis. No dissection or occlusion. NECK: Bones/joints: Multilevel degenerative changes of the cervical spine. No acute fracture. No dislocation. Soft tissues: Unremarkable as visualized. No mass. Lung apices: Paraseptal emphysematous changes of the lungs. CAROTID STENOSIS REFERENCE USING NASCET CRITERIA: % ICA stenosis = (1 - narrowest ICA diameter/diameter of distal cervical ICA) x 100. Mild - <50% stenosis. Moderate - 50-69% stenosis. Severe - 70-94% stenosis. Near occlusion - 95-99% stenosis. Occluded - 100% stenosis. IMPRESSION: Atherosclerosis is seen with no significant stenosis.. Critical Value Communications 10/11/16 00:40 Call Doctor Regarding Critical stenosis/arterial occlusion, called DR Padgett @ [phone]
[2016-10-11 00:31] LABS: ALT 73 U/L (21-72); AST 38 U/L (17-59); Alkaline Phosphatase 57 U/L (38-126); Anion Gap 12 mmol/L; Blood Urea Nitrogen 12 mg/dL (9-20); Calcium 9.7 mg/dL (8.4-10.2); Carbon Dioxide 25 mmol/L (22-30); Chloride 104 mmol/L (98-107); Glucose 77 mg/dL (74-99); Magnesium 2.1 mg/dL (1.6-2.3); Non-African American GFR(MDRD) >60 (>60 ml/min/1.73 sqM); Phosphorous 3.6 mg/dL (2.5-4.5); Potassium 3.7 mmol/L (3.5-5.1); Sodium 141 mmol/L (137-145); Total Bilirubin 0.5 mg/dL (0.2-1.3); Total Protein 7.1 g/dL (6.3-8.2)
[2016-10-11 06:08] LABS: Glucose,Whole Blood 90 mg/dL (75-99)
[2016-10-11 06:13] LABS: Anion Gap 8 mmol/L; Blood Urea Nitrogen 12 mg/dL (9-20); Calcium 9.4 mg/dL (8.4-10.2); Carbon Dioxide 29 mmol/L (22-30); Chloride 104 mmol/L (98-107); Cholesterol 179 mg/dL (<200); Glucose 83 mg/dL (74-99); HDL Cholesterol 39 mg/dL (40-60); Non-African American GFR(MDRD) >60 (>60 ml/min/1.73 sqM); Potassium 4.6 mmol/L (3.5-5.1); Sodium 141 mmol/L (137-145); Triglycerides 169 mg/dL (<150)
[2016-10-11] MEDS: INSULIN LISPRO (humaLOG) 300 UNIT/3 ML VIAL SQ SCH (06:38)
[2016-10-11] MEDS: SODIUM CHLORIDE 0.9% 1,000 ML IV SCH (06:39)
[2016-10-11] MEDS: glipiZIDE 10 MG TAB PO SCH (08:25)
[2016-10-11 08:52] VITALS: BP 150/86; PULSE 71; TEMP 97.9
[2016-10-11] MEDS ORDERED: GABAPENTIN 300 MG CAP PO SCH (09:00)
[2016-10-11] MEDS ORDERED: ATORVASTATIN 40 MG TAB PO SCH (09:00)
[2016-10-11] MEDS ORDERED: CLOPIDOGREL 75 MG TAB PO SCH (09:00)
[2016-10-11] MEDS ORDERED: ASPIRIN 325 MG TAB PO SCH (09:00)
[2016-10-11] MEDS ORDERED: ATORVASTATIN 20 MG TAB PO SCH (09:00)
--- NOTE | 2016-10-12 12:54 | DS ---
DATE OF ADMISSION: 10/10/2016 DATE OF DISCHARGE: 10/11/2016 Patient came in with symptoms of transient ischemic attack involving the right side of the body along with tingling and numbness in the rest of the body, although patient underwent extensive work-up. Patient's symptoms completely resolved by the end of the day yesterday and had recurrence of these symptoms again. Because of which neurology recommended one more day of monitoring although patient wanted to be discharged and patient wanted to come back if he had recurrence of symptoms, does not want to stay here. Patient takes Plavix at home. Discussed with neurology and they are recommending only Plavix. No addition of other medications. Patient had an MRI which did not show any obvious stroke, but there are some increasing periventricular white matter ischemic changes. The differential as per the reading is vasculitis or multiple sclerosis, although patient does not have any symptoms of Lyme disease. I discussed with neurology and they do not believe patient has any symptomatology consistent with that diagnosis. There is scattered punctate areas of hyperintensity and patient underwent CT angiography of the brain after the recurrence of these symptoms and patient was found to have occlusion of severe focal stenosis of the left vertebral artery. Patient's symptomatology is on the right side, but since it is a vertebral artery neuro youth services librarian recommended only medical management. The patient's LDL is 106. I am increasing the dose of atorvastatin to 40 mg. Since ideally patient needs to stay her for one more day of monitoring, the patient wanted to be discharged because of which we will go ahead and discharge the patient. Patient was asked to come back if he has recurrence of these symptoms again. Patient was seen and examined on the day of discharge. Vitals were stable. PHYSICAL EXAMINATION: GENERAL: The patient is alert and oriented x3, not in any acute distress. Well developed, well nourished. HEENT: Pupils are round and equally reacting to light. EOMI. No scleral icterus. No conjunctival pallor. Normocephalic, atraumatic. No pharyngeal erythema. No thyromegaly. CARDIOVASCULAR: S1 and S2 present. No murmurs, rubs, or gallops. PULMONARY: Chest is clear to auscultation, no wheezing or crackles. ABDOMEN: Soft, nontender, nondistended, normoactive bowel sounds. No palpable organomegaly. MUSCULOSKELETAL: No joint swelling or deformity. EXTREMITIES: No cyanosis, clubbing, or pedal edema. NEUROLOGICAL: Gross neurological examination did not reveal any focal deficits. SKIN: No rashes. The patient did not have any more focal deficits at this point of time. FINAL DIAGNOSES: 1. Possible transient ischemic attack a couple of episodes involving the left middle cerebral artery territory. Patient has finding or occlusion of left vertebral artery. The patient's symptoms are on the right side. 2. Hyperlipidemia. 3. Hypertension. 4. Acute renal failure. 5. Type 2 diabetes mellitus. 6. Coronary artery disease. 7. Nicotine abuse. Extensive counseling was provided and patient needs to quit smoking and extensive counseling was provided regarding that. Patient will be discharged today. Will follow with Dr. Armenta in 3 to 7 days. Activity as tolerated. Cardiac diet and diabetic ADA 1800 calorie diet. I spent greater than 35 minutes in total discharge process.
--- NOTE | 2016-10-13 11:45 | ECHOF ---
Referral Reason:Thrombus MEASUREMENTS -------- HEIGHT: 152.4 cm WEIGHT: 88.5 kg BP: 124/94 IVSd: 1.2 cm (0.6 - 1.1) LVIDd: 3.3 cm (3.9 - 5.3) LVPWd: 1.3 cm (0.6 - 1.1) IVSs: 1.6 cm LVIDs: 3.0 cm LVPWs: 1.3 cm LA Diam: 2.7 cm (2.7 - 3.8) Ao Diam: 3.7 cm (2.0 - 3.7) AV Cusp: 2.0 cm (1.5 - 2.6) LA Diam: 3.4 cm (2.7 - 3.8) MV EXCURSION: 22.213 mm (> 18.000) MV EF SLOPE: 137 mm/s (70 - 150) EPSS: 0.4 cm MV E Syd: 0.55 m/s MV DecT: 268 ms MV A Syd: 0.75 m/s MV E/A Ratio: 0.74 RAP: 5.00 mmHg RVSP: 22.57 mmHg FINDINGS -------- Sinus rhythm. This was a techncally difficult study with suboptimal views, , Definity utilized for enhancement of images. There is mild concentric left ventricular hypertrophy. Overall left ventricular systolic function is normal with, an EF between 55 - 60 %. The right ventricle is normal in size. The right atrial size is normal. 1.5MG OF DEFINITY UTLIZED: 2 OR MORE WALL SEGMENTS NOT VISUALIZED. There is mild aortic valve sclerosis. There is no evidence of aortic regurgitation. Mild mitral annular calcification present. Mild mitral regurgitation is present. Mild tricuspid regurgitation present. There is no evidence of pulmonary hypertension. The right ventricular systolic pressure, as measured by Doppler, is 22.57mmHg. There is no pulmonic regurgitation present. The aortic root size is normal. There is no pericardial effusion. CONCLUSIONS -------- 1. This was a techncally difficult study with suboptimal views, , Definity utilized for enhancement of images. 2. The right ventricular systolic pressure, as measured by Doppler, is 22.57mmHg. 3. There is mild concentric left ventricular hypertrophy. 4. Overall left ventricular systolic function is normal with, an EF between 55 - 60 %. 5. 1.5MG OF DEFINITY UTLIZED: 2 OR MORE WALL SEGMENTS NOT VISUALIZED. 6. There is mild aortic valve sclerosis. 7. Mild mitral annular calcification present. 8. Mild mitral regurgitation is present. 9. Mild tricuspid regurgitation present. 10. There is no evidence of pulmonary hypertension. WIREWORKER SUPERVISOR: Jaz Millard RDCS
[2016-10-15] MEDS ORDERED: ALBIGLUTIDE 50 MG SQ SCH (09:00)
== END 2016-10-11 11:40 | disposition home or self-care (01) | DRG 68 ==
LOC: EC 12:50 → 6SEL 13:57
PROVIDERS: ADMIT Internal Medicine; ATTEND Internal Medicine
DX: I66.02 Occlusion and stenosis of left middle cerebral artery (principal); N17.9 Acute kidney failure, unspecified; E11.21 Type 2 diabetes mellitus with diabetic nephropathy; R13.10 Dysphagia, unspecified; E78.5 Hyperlipidemia, unspecified; I65.02 Occlusion and stenosis of left vertebral artery; I25.10 Atherosclerotic heart disease of native coronary artery without angina pectoris; I25.2 Old myocardial infarction; E11.22 Type 2 diabetes mellitus with diabetic chronic kidney disease; N18.2 Chronic kidney disease, stage 2 (mild); I67.9 Cerebrovascular disease, unspecified; M54.9 Dorsalgia, unspecified; G89.29 Other chronic pain; K57.90 Diverticulosis of intestine, part unspecified, without perforation or abscess without bleeding; I44.0 Atrioventricular block, first degree; R27.8 Other lack of coordination; R47.1 Dysarthria and anarthria; M54.2 Cervicalgia; R29.810 Facial weakness; F17.200 Nicotine dependence, unspecified, uncomplicated; R29.708 NIHSS score 8; I12.9 Hypertensive chronic kidney disease with stage 1 through stage 4 chronic kidney disease, or unspecified chronic kidney disease; Z95.5 Presence of coronary angioplasty implant and graft; Z86.73 Personal history of transient ischemic attack (TIA), and cerebral infarction without residual deficits; Z79.899 Other long term (current) drug therapy; Z88.0 Allergy status to penicillin; Z79.02 Long term (current) use of antithrombotics/antiplatelets; Z79.82 Long term (current) use of aspirin; Z85.72 Personal history of non-Hodgkin lymphomas; Z82.5 Family history of asthma and other chronic lower respiratory diseases; Z83.3 Family history of diabetes mellitus; Z71.6 Tobacco abuse counseling; Z88.8 Allergy status to other drugs, medicaments and biological substances; Z90.49 Acquired absence of other specified parts of digestive tract; Z80.1 Family history of malignant neoplasm of trachea, bronchus and lung; Z82.49 Family history of ischemic heart disease and other diseases of the circulatory system; Z79.84 Long term (current) use of oral hypoglycemic drugs; Z86.010 Personal history of colon polyps; Z87.19 Personal history of other diseases of the digestive system; Z79.891 Long term (current) use of opiate analgesic; Z85.528 Personal history of other malignant neoplasm of kidney; Z90.5 Acquired absence of kidney; Z90.6 Acquired absence of other parts of urinary tract; Z98.49 Cataract extraction status, unspecified eye
CPT/HCPCS: 36415; 70450; 70496; 70498; 70551; 71020; 80048; 80053; 80061; 82550; 82553; 83036; 83090; 83735; 84100; 84484; 85025; 85610; 85730; 93005; 93306; 93880; 94760; 96360; 99291

== ENCOUNTER → 2016-12-31 | Outpatient (CLI) | payer OTHER ==
--- NOTE | 2016-12-31 10:11 | US ---
EXAMINATION TYPE: US abdomen complete DATE OF EXAM: 12/31/2016 COMPARISON: CT & US CLINICAL HISTORY: R10.13 Epigastric pain. R10.11 RUQ abd pain. Epigastric pain x 6 weeks, gets worse after eating, history of left nephrectomy EXAM MEASUREMENTS: Liver Length: 19.3 cm Gallbladder Wall: 0.2 cm CBD: 0.7 cm Spleen: 13.7 cm Right Kidney: 13.4 x 7.3 x 6.6 cm Left Kidney: surgically absent Pancreas: visualized portions wnl, body and tail obscured by overlying midline bowel gas Liver: enlarged at 19.3cm, course echotexture, increased echogenicity, difficult to penetrate, multi ple hypoechoic areas adjacent to gallbladder with largest measuring 1.7cm Gallbladder: wnl Evidence for sonographic Manrique's sign: no CBD: slightly dilated at 0.7cm Spleen: Slightly enlarged at 13.7 cm. Normal >12.5 cm. Right Kidney: 4.3 x 4.6 x 4.0cm cystic area inferior pole, 0.7cm echogenic focus lateral mid pole may be a renal stone. Left Kidney: surgically absent Upper IVC: wnl Abd Aorta: visualized portions wnl, limited by overlying midline bowel gas IMPRESSION: 1. Right nonobstructing renal stone. 2. Inferior pole right renal cyst appears simple. 3. Mild splenomegaly
== END | disposition home or self-care (01) ==
LOC: RADUSWWP 06:48
PROVIDERS: ATTEND Family Medicine
DX: N20.0 Calculus of kidney (principal); N28.1 Cyst of kidney, acquired; R16.1 Splenomegaly, not elsewhere classified; R10.13 Epigastric pain
CPT/HCPCS: 76700

== ENCOUNTER → 2017-01-08 | Outpatient (CLI) | payer OTHER ==
--- NOTE | 2017-01-08 15:21 | NM ---
Nuclear medicine hepatobiliary scan. HISTORY: Pain. DOSAGE: The patient received 8 ounces of oral ensure plus and 5.2 mCi of Technetium 99m Choletec. FINDINGS: There is normal hepatic extraction. The gallbladder is seen by 15 minutes. Ejection fract ion is 50%. IMPRESSION: 1. No diagnostic evidence of cholecystitis. 2. Ejection fraction 50%.
== END ==
LOC: RADNMMAIN 12:48
PROVIDERS: ATTEND Family Medicine
DX: R10.11 Right upper quadrant pain (principal)
CPT/HCPCS: 78226; A9537

== ENCOUNTER → 2017-01-15 | Outpatient (CLI) | payer OTHER ==
--- NOTE | 2017-01-15 17:14 | CT ---
EXAMINATION TYPE: CT abdomen pelvis wo con DATE OF EXAM: 01/15/2017 COMPARISON: 08/26/2016 HISTORY: RUQ pain, possible kidney stone CT DLP: 969 mGycm Automated exposure control for dose reduction was used. TECHNIQUE: Helical acquisition of images was performed from the lung bases through the pelvis. FINDINGS: Lung bases are clear. There is no pleural effusion. Heart size is normal. Liver shows no focal defect. Bile ducts are not dilated. Gallbladder appears normal. There is no evid ence of pancreatic mass. Spleen has normal size. There is a 2.5 cm rounded density posterior to the s pleen that is probably accessory spleen. There is no adrenal mass. There is mild vascular calcification. There are clips from left nephrectomy . There is a 4 cm cyst on the lower pole right kidney. There is a 1 cm calculus in the lower pole rig ht kidney. There is a 5 mm calculus in the proximal right ureter with mild right-sided hydronephrosis . There is no ascites. I see no intestinal wall thickening. There are no dilated loops. There are few s igmoid diverticula. There is no evidence of diverticulitis. There is enlarged prostate that measures 5 cm with some calcification. Appendix is not definitely seen. There is no sign of appendicitis. I se e no bony destructive process.. IMPRESSION: LARGE RIGHT RENAL CALCULUS. OBSTRUCTING 5 MM CALCULUS IN THE PROXIMAL RIGHT URETER THAT HAS MIGRATED FROM THE RIGHT KIDNEY COMPARED TO OLD EXAM. LARGE RIGHT RENAL CORTICAL CYST. ACCESSORY SPLEEN. ENLARG ED PROSTATE. COLONIC DIVERTICULOSIS WITHOUT SIGN OF DIVERTICULITIS. ATHEROSCLEROTIC VASCULAR DISEASE.
== END | disposition home or self-care (01) ==
LOC: RADCTMAIN 16:46
PROVIDERS: ATTEND Family Medicine
DX: N20.2 Calculus of kidney with calculus of ureter (principal); N28.1 Cyst of kidney, acquired; Q89.09 Congenital malformations of spleen; N40.0 Benign prostatic hyperplasia without lower urinary tract symptoms; K57.30 Diverticulosis of large intestine without perforation or abscess without bleeding; I70.90 Unspecified atherosclerosis
CPT/HCPCS: 74176

== ENCOUNTER → 2017-07-28 | Outpatient (CLI) | payer MEDICAID ==
--- NOTE | 2017-07-28 11:15 | XR ---
EXAMINATION TYPE: XR KUB DATE OF EXAM: 07/28/2017 COMPARISON: NONE HISTORY: Pain TECHNIQUE: One view abdominal series FINDINGS: The osseous structures are intact. The bowel gas pattern is nonspecific. Lung bases are clear. Surg ical changes are noted in the left upper quadrant. Postsurgical clips in the left pelvis. Arthropathy of the hips. Calcific density overlying the left abdomen may be postsurgical. Right kidney: There is a rounded density measuring approximately 8 mm just above the right renal calc ulus which was also noted by previous CT scan dated 01/15/2017. No suspicious calcifications within the paraspinal line or pelvis noted. There is a punctate calcific ation in the left pelvis 2 small to characterize. IMPRESSION: 1. Stable appearing 8 mm calcification overlying the right kidney.
== END | disposition home or self-care (01) ==
LOC: RADXRMAIN 10:38
PROVIDERS: ATTEND Urology
DX: N28.89 Other specified disorders of kidney and ureter (principal)
CPT/HCPCS: 74018

== ENCOUNTER → 2017-09-25 | Outpatient (CLI) | payer MEDICAID ==
[2017-09-25 11:35] LABS: Basophils # (A) 0.1 k/uL (0-0.2); Basophils % (A) 2 %; Eosinophils # (A) 0.2 k/uL (0-0.7); Eosinophils % (A) 3 %; HCT 54.1 % (39.0-53.0); HGB 18.5 gm/dL (13.0-17.5); Lymphocytes % (A) 14 %; MCH 30.9 pg (25.0-35.0); MCHC 34.3 g/dL (31.0-37.0); Mean Platelet Volume 7.5; Monocytes # (A) 0.5 k/uL (0-1.0); Monocytes % (A) 7 %; Neutrophils # (A) 5.1 k/uL (1.3-7.7); Neutrophils % (A) 73 %; Platelet Count 175 k/uL (150-450); RDW 13.6 % (11.5-15.5); WBC 7.1 k/uL (3.8-10.6)
[2017-09-25 11:47] LABS: Appearance,Urine Clear (Clear); Bilirubin,Urine Negative (Negative); Blood,Urine Negative (Negative); Color,Urine Light Yellow; Glucose,Urine (UA) 4+ (Negative); Ketones,Urine Negative (Negative); Leukocyte Esterase,Urine Negative (Negative); Nitrite,Urine Negative (Negative); Protein,Urine Negative (Negative); Specific Gravity,Urine 1.026 (1.001-1.035); Urobilinogen,Urine <2.0 mg/dL (<2.0)
[2017-09-25 12:00] LABS: Potassium 4.9 mmol/L (3.5-5.1)
== END | disposition home or self-care (01) ==
LOC: LABWHC1 11:12
PROVIDERS: ATTEND Urology
DX: N20.0 Calculus of kidney (principal)
CPT/HCPCS: 36415; 80051; 81003; 82565; 84520; 85025

== ENCOUNTER → 2017-10-01 | Outpatient (CLI) | payer MEDICAID ==
--- NOTE | 2017-10-01 15:28 | XR ---
Abdomen HISTORY: Status post lithotripsy for right ureteral stone Frontal view of the abdomen on 2 images correlated to prior exam 07/28/2017 Postop changes are stable. No pneumoperitoneum or bowel obstruction. Calcification in the left hemiab domen shows a similar appearance. Superimposed bowel gas obscures the right kidney. Suspect a stone w ithin the right kidney is stable. IMPRESSION: Suspect there is persistent right-sided nephrolithiasis although the exam is limited.
== END | disposition home or self-care (01) ==
LOC: RADXRMAIN 14:50
PROVIDERS: ATTEND Urology
DX: N20.0 Calculus of kidney (principal)
CPT/HCPCS: 74018

== ENCOUNTER 2018-12-03 12:50 | Inpatient (IN) | payer MEDICARE, BC ==
--- NOTE | 2018-12-03 12:42 | US ---
EXAMINATION TYPE: US venous doppler duplex LE RT DATE OF EXAM: 12/03/2018 12:24 PM COMPARISON: NONE CLINICAL HISTORY: R22.41 Swelling, R06.02 Shortness of Breath. SIDE PERFORMED: Right TECHNIQUE: The lower extremity deep venous system is examined utilizing real time linear array sonog precious with graded compression, doppler sonography and color-flow sonography. VESSELS IMAGED: External Iliac Vein (EIV) Common Femoral Vein Deep Femoral Vein Greater Saphenous Vein * Femoral Vein Popliteal Vein Small Saphenous Vein * Proximal Calf Veins (* superficial vessels) Right Leg: Negative for DVT Grayscale, color doppler, spectral doppler imaging performed of the deep veins of the right lower ext remity. There is normal flow, compressibility, vascular waveforms. IMPRESSION: No ultrasonographic evidence for acute DVT in the right lower extremity.
[2018-12-03 14:13] LABS: Basophils # (A) 0.1 k/uL (0-0.2); Basophils % (A) 2 %; Eosinophils # (A) 0.2 k/uL (0-0.7); Eosinophils % (A) 3 %; Lymphocytes # (A) 1.5 k/uL (1.0-4.8); Lymphocytes % (A) 17 %; MCH 31.6 pg (25.0-35.0); MCHC 34.8 g/dL (31.0-37.0); MCV 90.8 fL (80.0-100.0); Mean Platelet Volume 8.8; Monocytes # (A) 0.5 k/uL (0-1.0); Monocytes % (A) 6 %; Neutrophils # (A) 6.4 k/uL (1.3-7.7); Neutrophils % (A) 72 %; Platelet Count 217 k/uL (150-450); RBC 5.39 m/uL (4.30-5.90); RDW 13.2 % (11.5-15.5); WBC 8.9 k/uL (3.8-10.6)
--- NOTE | 2018-12-03 14:23 | CT ---
EXAMINATION TYPE: CT brain wo con DATE OF EXAM: 12/03/2018 HISTORY: syncopal episode CT DLP: 1111.4 mGycm. Automated Exposure Control for Dose Reduction was Utilized. TECHNIQUE: CT scan of the head is performed without contrast. COMPARISON: CT brain October 10, 2016. FINDINGS: There is no acute intracranial hemorrhage or midline shift identified. There is diffuse v entricular and sulcal prominence consistent with diffuse age-related cerebral atrophy. Findings most prominent over bilateral frontal lobes similar to prior. There is low-attenuation in the periventric ular white matter consistent with chronic small vessel ischemic change. The globes are intact and th e visualized sinuses are clear. IMPRESSION: No acute intracranial hemorrhage or midline shift. There is [id number] diffuse ag e-related cerebral atrophy and chronic small vessel ischemic change redemonstrated. There is no sign ificant change from comparison CT.
--- NOTE | 2018-12-03 14:24 | XR ---
EXAMINATION TYPE: XR ankle complete RT, XR foot complete RT DATE OF EXAM: 12/03/2018 CLINICAL HISTORY: Swelling and pain. TECHNIQUE: Frontal, lateral and oblique images of the right ankle and foot are obtained. COMPARISON: None. FINDINGS: There is no acute fracture/dislocation evident in the right ankle. The ankle mortise appe ars within normal limits. Moderate-sized superior and inferior calcaneal spurs. The overlying soft t issue appears unremarkable. There is no acute fracture or dislocation evident in the right foot. Slight hallux valgus positioning first metatarsophalangeal joint. Flexion in the distal second through fifth toes. Mild midfoot spurr ing. Overlying soft tissue are unremarkable. IMPRESSION: As above.
--- NOTE | 2018-12-03 14:26 | XR ---
EXAMINATION TYPE: XR chest 2V DATE OF EXAM: 12/03/2018 COMPARISON: 10/10/2016 HISTORY: Chest pain TECHNIQUE: Frontal and lateral views of the chest are obtained. FINDINGS: There is no focal air space opacity, pleural effusion, or pneumothorax seen. The cardiac silhouette size is within normal limits. The osseous structures are intact. IMPRESSION: No acute cardiopulmonary process.
[2018-12-03 14:55] LABS: D-Dimer 0.41 mg/L FEU (<0.60); Prothrombin Time 11.1 sec (9.0-12.0)
[2018-12-03 15:10] LABS: Albumin 4.8 g/dL (3.5-5.0); Calcium 9.7 mg/dL (8.4-10.2); Magnesium 2.2 mg/dL (1.6-2.3); Potassium 3.5 mmol/L (3.5-5.1); Total Bilirubin 1.1 mg/dL (0.2-1.3); Total Protein 8.3 g/dL (6.3-8.2)
[2018-12-03] MEDS ORDERED: NALOXONE 0.4 MG/ML 1 ML VIAL IV PRN (15:31)
--- NOTE | 2018-12-03 15:31 | ED ---
Recheck HPI - General Chief Complaint: Recheck/Abnormal Lab/Rx Stated Complaint: Abn labs, sent from CT Time Seen by Provider: 12/03/18 13:00 Source: patient Mode of arrival: wheelchair Limitations: no limitations - History of Present Illness Initial Comments: The patient is a 63-year-old male who presents to the emergency department from Dr. Armenta's office. The patient reports to right lower extremity swelling that started after a trip back from [place]. His return flight was on the . He did have Lasix at home that he began taking on his own. He denies a history of DVTs or PEs. He is not on any anticoagulation. He admits to pain in his right foot. He does report a history of neuropathy however this is worse. Denies calf pain. Several days ago he was walking around [place] when he did have exertional shortness of breath and left-sided chest pain. Yesterday he reports going to a concert where he began feeling lightheaded and had a syncopal episode. States that he fell to the ground however did not hit his head or injure himself. States that he did not completely go unconscious and does remember the incident. He saw Dr. Armenta today in office. Dr. Armenta ordered an ultrasound of his right lower trauma as well as a CT PE protocol. He completed labs on the patient. The patient did arrive to the hospital. His ultrasound was completed. At this point Dr. Armenta did receive results of the patient's creatinine was 2. 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 States his normal creatinine is around 1.2. As he was unable to get the CT performed therefore he did call the patient and told him to go directly into the emergency department for admission. He currently denies an y chest pain. No shortness of breath. Denies any nausea, vomiting, fevers or chills. Denies cough, hemoptysis, abdominal pain or changes in his bowel or bladder habits. There are no other alleviating, precipitating or modifying factors - Related Data Home Medications Medication Instructions Recorded Confirmed Clopidogrel Bisulfate [Clopidogrel] 75 mg PO DAILY 02/04/14 12/03/18 Albiglutide [Tanzeum] 50 mg SQ WE 08/26/16 12/03/18 Gabapentin [Neurontin] 300 mg PO QAM 08/26/16 12/03/18 Potassium 99 mg PO DAILY 08/26/16 12/03/18 Cinnamon Bark [Cinnamon] 500 mg PO DAILY 10/10/16 12/03/18 Gabapentin [Neurontin] 600 mg PO HS 10/10/16 12/03/18 Sildenafil Citrate [Sildenafil] 20 - 80 mg PO DAILY 10/10/16 12/03/18 glipiZIDE [Glucotrol] 10 mg PO BID PRN 10/10/16 12/03/18 traMADol HCL [Ultram] 100 mg PO Q6HR PRN 10/10/16 12/03/18 Atorvastatin [Lipitor] 40 mg PO HS 12/03/18 12/03/18 Empagliflozin [Jardiance] 25 mg PO DAILY 12/03/18 12/03/18 Previous Rx's Medication Instructions Recorded Aspirin 81 mg PO DAILY #30 chew 12/06/18 Colchicine [Colcrys] 0.6 mg PO DAILY #30 each 12/06/18 Furosemide [Lasix] 20 mg PO DAILY PRN #30 tablet 12/06/18 Allergies Allergy/AdvReac Type Severity Reaction Status Date / Time Penicillins Allergy Unknown Verified 12/03/18 16:57 Childhood metformin AdvReac Nausea & Verified 12/03/18 16:57 Vomiting Review of Systems ROS Statement: Those systems with pertinent positive or pertinent negative responses have been documented in the HPI. ROS Other: All systems not noted in ROS Statement are negative. Past Medical History Past Medical History: Coronary Artery Disease (CAD), Cancer, Chest Pain / Angina, CVA/TIA, Diabetes Mellitus, GI Bleed, Hyperlipidemia, Hypertension, Myocardial Infarction ([place]), Neurologic Disorder, Renal Disease Additional Past Medical History / Comment(s): SHINGLES 2014 RT SHOULDER/NECK PAIN SINCE. C-DIFF 2012. DIVERTICUALR DISEASE, neuropathy, 1998 lt kidney tumor(ca), has made changes in his diet and has dropped 40-45 #.CYST ON RT KIDNEY Last Myocardial Infarction Date:: 2012 History of Any Multi-Drug Resistant Organisms: None Reported Past Surgical History: Bowel Resection, Heart Catheterization With Stent, Hernia Repair, Tonsillectomy Additional Past Surgical History / Comment(s): 1998 TRANSITIONAL CELL CA " LT NEPHRECTOMY ,URETER AND PART OF BLADDER REMOVED,AFTERWARDS SWOLLEN LYMPH NODES WERE REMOVED- POSITIVE FOR NON HODGKINS LYMPHOMA BUT F/U PET SCAN-NO FURTHER CANCER"DEVELOPED POST OP INFECTION HAD PICC LINE FOR ABX. HX PHIMOSIS HAD ADULT CIRCUMCISION 03-22-14, STENTS TO RCA AND LAD.cataracts. IN THE HAD A PIECE OF METAL REMOVED FROM ABD - DEVELOPED SCAR TISSUE AND HAD PART OF LARGE INTESTINE REMOVED.2007 ABD HERNIA REPAIR. SX FOR SLEEP APNEA. COLONOSCOPY/POLYPECTOMY. Past Anesthesia/Blood Transfusion Reactions: No Reported Reaction Date of Last Stent Placement:: 05-15-08, 06-29-13, Past Psychological History: No Psychological Hx Reported Smoking Status: Current every day smoker Past Alcohol Use History: None Reported Past Drug Use History: None Reported - Past Family History Mother Additional Family Medical History / Comment(s): from complications from broken hip. dad hx lung cancer, emphysema, dm Father Family Medical History: Diabetes Mellitus Sister(s) Family Medical History: Diabetes Mellitus, Deep Vein Thrombosis (DVT) General Exam Limitations: no limitations General appearance: alert, in no apparent distress Head exam: Present: atraumatic, normocephalic, normal inspection Eye exam: Present: normal appearance, PERRL, EOMI. Absent: scleral icterus, conjunctival injection, periorbital swelling ENT exam: Present: normal exam, mucous membranes moist Neck exam: Present: normal inspection. Absent: tenderness, meningismus, lymphadenopathy Respiratory exam: Present: normal lung sounds bilaterally. Absent: respiratory distress, wheezes, rales, rhonchi, stridor Cardiovascular Exam: Present: regular rate, normal rhythm, normal heart sounds. Absent: systolic murmur, diastolic murmur, rubs, gallop, clicks GI/Abdominal exam: Present: soft, normal bowel sounds. Absent: distended, tenderness, guarding, rebound, rigid Extremities exam: Present: normal inspection, full ROM, normal capillary refill, pedal edema (right lower extremity). Absent: tenderness, joint swelling, calf tenderness Back exam: Present: normal inspection Neurological exam: Present: alert, oriented X3, CN II-XII intact Psychiatric exam: Present: normal affect, normal mood Skin exam: Present: warm, dry, intact, normal color. Absent: rash Course Vital Signs 12/03/18 12/03/18 12:58 16:12 Temperature 97.9 F Pulse Rate 71 64 Respiratory 16 18 Rate Blood Pressure 102/70 128/87 O2 Sat by Pulse 97 96 Oximetry Medical Decision Making - Medical Decision Making Upon arrival the patient is placed into room 15. He is hooked up to continuous pulse ox and cardiac monitoring. A 12-lead EKG is performed on the patient which demonstrates no signs of ischemia. Peripheral IV was established. I did repeat laboratory studies. I reviewed the patient's lower extremity ultrasound. I did send him for an x-ray of his right foot and ankle. I also recommended a chest x-ray and a CT of his brain. The patient agreed to this. Upon return, results as reviewed. The patient does have acute kidney injury at this time. He also has an elevated troponin of 0.142. I did recommend admission to the hospital for a lung perfusion scan. I also recommended heparinizing the patient for which he did agree to. There are no contraindications. The patient will be admitted to Dr. Montes. I did call and discuss the case with him and he did accept admission of the patient. I will consult cardiology. The patient remained in stable condition awaiting transport to the floor - Lab Data Result diagrams: 12/06/18 06:19 12/06/18 06:19 Lab Results 12/03/18 12/03/18 12/03/18 Range/Units 12:01 14:00 14:00 WBC 8.9 (3.8-10.6) k/uL RBC 5.39 (4.30-5.90) m/uL Hgb 17.0 (13.0-17.5) gm/dL Hct 49.0 (39.0-53.0) % MCV 90.8 (80.0-100.0) fL MCH 31.6 (25.0-35.0) pg MCHC 34.8 (31.0-37.0) g/dL RDW 13.2 (11.5-15.5) % Plt Count 217 (150-450) k/uL Neutrophils % 72 % Lymphocytes % 17 % Monocytes % 6 % Eosinophils % 3 % Basophils % 2 % Neutrophils # 6.4 (1.3-7.7) k/uL Lymphocytes # 1.5 (1.0-4.8) k/uL Monocytes # 0.5 (0-1.0) k/uL Eosinophils # 0.2 (0-0.7) k/uL Basophils # 0.1 (0-0.2) k/uL PT 11.1 (9.0-12.0) sec INR 1.0 (<1.2) APTT 27.0 (22.0-30.0) sec D-Dimer 0.41 (<0.60) mg/L FEU Sodium (137-145) mmol/L Potassium (3.5-5.1) mmol/L Chloride (98-107) mmol/L Carbon Dioxide (22-30) mmol/L Anion Gap mmol/L BUN 39 H (9-20) mg/dL Creatinine 2.42 H (0.66-1.25) mg/dL Est GFR (CKD-EPI)AfAm 31 (>60 ml/min/1.73 sqM) Est GFR (CKD-EPI)NonAf 27 (>60 ml/min/1.73 sqM) Glucose (74-99) mg/dL Uric Acid (3.5-8.5) mg/dL Calcium (8.4-10.2) mg/dL Magnesium (1.6-2.3) mg/dL Total Bilirubin (0.2-1.3) mg/dL AST (17-59) U/L ALT (21-72) U/L Alkaline Phosphatase (38-126) U/L Creatine Kinase (55-170) U/L Troponin I (0.000-0.034) ng/mL C-Reactive Protein (<10.0) mg/L NT-Pro-B Natriuret Pep pg/mL Total Protein (6.3-8.2) g/dL Albumin (3.5-5.0) g/dL 12/03/18 12/03/18 12/03/18 Range/Units 14:48 14:48 14:48 WBC (3.8-10.6) k/uL RBC (4.30-5.90) m/uL Hgb (13.0-17.5) gm/dL Hct (39.0-53.0) % MCV (80.0-100.0) fL MCH (25.0-35.0) pg MCHC (31.0-37.0) g/dL RDW (11.5-15.5) % Plt Count (150-450) k/uL Neutrophils % % Lymphocytes % % Monocytes % % Eosinophils % % Basophils % % Neutrophils # (1.3-7.7) k/uL Lymphocytes # (1.0-4.8) k/uL Monocytes # (0-1.0) k/uL Eosinophils # (0-0.7) k/uL Basophils # (0-0.2) k/uL PT (9.0-12.0) sec INR (<1.2) APTT (22.0-30.0) sec D-Dimer (<0.60) mg/L FEU Sodium 138 (137-145) mmol/L Potassium 3.5 (3.5-5.1) mmol/L Chloride 96 L (98-107) mmol/L Carbon Dioxide 31 H (22-30) mmol/L Anion Gap 11 mmol/L BUN 42 H (9-20) mg/dL Creatinine 2.25 H (0.66-1.25) mg/dL Est GFR (CKD-EPI)AfAm 34 (>60 ml/min/1.73 sqM) Est GFR (CKD-EPI)NonAf 29 (>60 ml/min/1.73 sqM) Glucose 114 H (74-99) mg/dL Uric Acid (3.5-8.5) mg/dL Calcium 9.7 (8.4-10.2) mg/dL Magnesium 2.2 (1.6-2.3) mg/dL Total Bilirubin 1.1 (0.2-1.3) mg/dL AST 46 (17-59) U/L ALT 51 (21-72) U/L Alkaline Phosphatase 62 (38-126) U/L Creatine Kinase 140 (55-170) U/L Troponin I 0.142 H* (0.000-0.034) ng/mL C-Reactive Protein (<10.0) mg/L NT-Pro-B Natriuret Pep 128 pg/mL Total Protein 8.3 H (6.3-8.2) g/dL Albumin 4.8 (3.5-5.0) g/dL 12/03/18 Range/Units 14:48 WBC (3.8-10.6) k/uL RBC (4.30-5.90) m/uL Hgb (13.0-17.5) gm/dL Hct (39.0-53.0) % MCV (80.0-100.0) fL MCH (25.0-35.0) pg MCHC (31.0-37.0) g/dL RDW (11.5-15.5) % Plt Count (150-450) k/uL Neutrophils % % Lymphocytes % % Monocytes % % Eosinophils % % Basophils % % Neutrophils # (1.3-7.7) k/uL Lymphocytes # (1.0-4.8) k/uL Monocytes # (0-1.0) k/uL Eosinophils # (0-0.7) k/uL Basophils # (0-0.2) k/uL PT (9.0-12.0) sec INR (<1.2) APTT (22.0-30.0) sec D-Dimer (<0.60) mg/L FEU Sodium (137-145) mmol/L Potassium (3.5-5.1) mmol/L Chloride (98-107) mmol/L Carbon Dioxide (22-30) mmol/L Anion Gap mmol/L BUN (9-20) mg/dL Creatinine (0.66-1.25) mg/dL Est GFR (CKD-EPI)AfAm (>60 ml/min/1.73 sqM) Est GFR (CKD-EPI)NonAf (>60 ml/min/1.73 sqM) Glucose (74-99) mg/dL Uric Acid 13.1 H (3.5-8.5) mg/dL Calcium (8.4-10.2) mg/dL Magnesium (1.6-2.3) mg/dL Total Bilirubin (0.2-1.3) mg/dL AST (17-59) U/L ALT (21-72) U/L Alkaline Phosphatase (38-126) U/L Creatine Kinase (55-170) U/L Troponin I (0.000-0.034) ng/mL C-Reactive Protein 10.3 H (<10.0) mg/L NT-Pro-B Natriuret Pep pg/mL Total Protein (6.3-8.2) g/dL Albumin (3.5-5.0) g/dL - EKG Data EKG Comments: EKG demonstrates a normal sinus rhythm with a first-degree AV block. Rate of 64. VT interval 250. QRS 122. QTC of 470. There are no acute ST segment elevations or depressions concerning for ischemic changes Disposition Clinical Impression: Syncope, Right leg swelling, Acute kidney injury Disposition: ADMITTED IP TO THIS HOSP Condition: Stable Is patient prescribed a controlled substance at d/c from ED?: No Decision to Admit Reason: Admit from EC Decision Date: 12/03/18 Decision Time: 15:31
[2018-12-03] MEDS ORDERED: HEPARIN SODIUM,PORCINE 5,000 UNIT/ML 1 ML VIAL IV PRN (15:58)
[2018-12-03] MEDS ORDERED: HEPARIN SODIUM,PORCINE 5,000 UNIT/ML 1 ML VIAL IV ONE (15:58)
[2018-12-03] MEDS ORDERED: HEPARIN SOD,PORK IN 0.45% NACL 25,000 UNIT in 0.45% NACL 1 250ML.BAG IV SCH (16:00)
[2018-12-03] MEDS: SODIUM CHLORIDE 0.9% 1,000 ML IV SCH (16:25)
[2018-12-03 18:20] LABS: Glucose,Whole Blood 74 mg/dL (75-99)
[2018-12-03 18:32] VITALS: BMI 28.5
--- NOTE | 2018-12-03 18:48 | NM ---
EXAMINATION TYPE: NM pul vent and perfuse DATE OF EXAM: 12/03/2018 COMPARISON: NONE HISTORY: TECHNIQUE: Utilizing inhalation of 32.1 mCi Tc 99m DTPA aerosol and intravenous injection of 5.2 mCi of Tc 99m MAA, ventilation and perfusion images are acquired post injection in multiple projections. FINDINGS: Normal radiotracer distribution is noted in the lungs. There is no evidence of mismatched defects. IMPRESSION: Normal lung scan. There is a very low probability of pulmonary embolism.
[2018-12-03] MEDS: INSULIN ASPART (NovoLOG) 100 UNIT/ML VIAL SQ SCH ×2 (19:05→22:20)
[2018-12-03] MEDS ORDERED: glipiZIDE 10 MG TAB PO PRN (20:33)
[2018-12-03 20:53] LABS: C Reactive Protein 10.3 mg/L (<10.0); Uric Acid 13.1 mg/dL (3.5-8.5)
[2018-12-03 21:12] LABS: Glucose,Whole Blood 219 mg/dL (75-99)
[2018-12-03] MEDS: ATORVASTATIN 40 MG TAB PO SCH (22:19)
[2018-12-03] MEDS: GABAPENTIN 300 MG CAP PO SCH (22:20)
[2018-12-03] MEDS: traMADol 50 MG TAB PO PRN (22:22)
--- NOTE | 2018-12-03 23:52 | HP ---
HISTORY AND PHYSICAL DATE OF SERVICE: 12/03/2018 CHIEF COMPLAINT: Syncope, back pain. HISTORY OF PRESENT ILLNESS: This 63-year-old gentleman with a past medical history of multiple medical problems including CAD, history of CVA, TIA, diabetes type 2, hypertension, history of peripheral neuropathy, being followed by Dr. Armenta in the outpatient setting was not feeling well over the past several days. Patient apparently took a trip to [place] in the airplane and the patient was complaining of foot pain on the right side. The patient was taking Lasix, which was rather old without any significant relief in the swelling and the patient was evaluated by primary physician and ultrasound was recommended. The patient was evaluated in the ER. The ultrasound showed no evidence of any DVT in the right lower extremity. The patient apparently was at a music festival yesterday and the patient had episodes of previous syncope also. The patient also complains some upper back pain also. Further evaluation in the ER showed creatinine elevated up to 2.42 indicating acute renal failure and creatinine and troponin up to 1.42. Multiple evaluations including CT scan of the brain showed mild to moderate diffuse age-related changes. Otherwise, the foot x-ray showed no acute fracture, calcaneus pulses are noted. Chest x-ray showed no acute abnormality and the EKG revealed some ST-T changes and a V/Q scan was also done to rule out the possible embolism, which was low probability. The patient admitted to the hospital for further evaluation and treatment. There is no history of fever, rigors or chills. No history of headache, loss of consciousness, seizures. PAST MEDICAL HISTORY: History of CAD, history of chest pain, CVA, TIA, diabetes type 2, GI bleed, hypertension, hyperlipidemia, history of myocardial infarction. Renal disease, shingles, history of CAD/stent. MEDICATIONS: Home medications are: 1. Glucotrol 10 mg b.i.d. p.r.n. 2. Neurontin 600 mg p.o. q.h.s. 3. Lasix 20 mg p.o. daily p.r.n. 4. Lipitor 40 mg p.o. q.h.s. 5. Ultram 100 mg q.6h p.r.n. 6. Viagra 20-80 mg p.o. daily. 7. Potassium 99 mg p.o. daily. 8. Zestril 5 mg p.o. daily. 9. Neurontin 300 mg q.a.m. 10.Jardiance 25 mg p.o. daily. 11.Plavix 75 mg. 12.Cinnamon 500 mg p.o. daily. 13.Tanzeum 50 mg subcu Thursday. ALLERGIES: PENICILLIN AND METFORMIN. FAMILY HISTORY: History of diabetes mellitus, DVT in the family. SOCIAL HISTORY: Previous history of smoking. Occasional alcohol intake. REVIEW OF SYSTEMS: ENT: Diminished vision. No diminished hearing. CARDIOVASCULAR system: As mentioned earlier. RESPIRATORY: As mentioned. GI: No nausea or vomiting. no dysuria. Nervous System: As mentioned earlier. ALLERGIES: No asthma or hayfever. MUSCULOSKELETAL as mentioned earlier. HEMATOLOGY/ONCOLOGY: No history of anemia. ENDOCRINE: No history of diabetes or hypothyroidism. CONSTITUTIONAL: As mentioned earlier. DERMATOLOGY: Negative. RHEUMATOLOGY negative. PSYCHIATRY as mentioned. PHYSICAL EXAMINATION: Alert and oriented times three. Pulse 75, blood pressure 141/74, respiration 18, temperature 98.4, pulse ox 94% on room air. HEENT: Conjunctivae normal. Oral mucosa moist. NECK is no jugular venous distention. No carotid bruit. No lymph node enlargement. CARDIOVASCULAR: S1, S2 muffled. No S3, no S4. RESPIRATORY: Breath sounds diminished in the bases. No rhonchi. No crackles. ABDOMEN: Soft, nontender. No mass palpable. LEGS are significant edema and erythema. Some tenderness in the right foot present. Otherwise, no other generalized swelling present. NERVOUS SYSTEM: Higher functions as mentioned. Moves all four limbs. No focal motor or sensory deficits. LYMPHATICS: No lymph nodes palpable in the neck, axilla or groin. SKIN: No ulcer, rash or bleeding. JOINTS: As mentioned earlier. LAB STUDIES: CBC within normal limits. Sodium 130. Potassium 3.5, creatinine is 2.45. Troponin 0.142. ASSESSMENT: 1. Syncope, possibly vasovagal. 2. Troponin 0.14 to rule out acute non ST-segment elevation myocardial infarction. 3. Increased creatinine with possibly acute renal failure possibly prerenal renal failure acute tubular necrosis. 4. Pain and swelling of the right foot, possible degenerative joint disease, rule out gout. 5. History of coronary artery disease/ stent. 6. History of cerebrovascular accident, transient ischemic attack. 7. Diabetes mellitus type 2. 8. Peripheral neuropathy. 9. Gastrointestinal bleed. 10.Hypertension. 11.Hyperlipidemia. 12.History of myocardial infarction. 13.History of shingles. 14.History of diverticulitis. 15.History of C difficile colitis. 16.History of transitional cell carcinoma with nephrectomy. 17.History of nicotine dependence. RECOMMENDATIONS AND DISCUSSION: In this 63-year-old gentleman who presented with multiple complex medical issues, we will monitor the patient closely, continue the current medications, management and symptomatic treatment. Otherwise, at this time, I recommend monitor in the telemetry closely. Otherwise, IV heparin has been initiated. Cardiology consultations. I would also recommend symptomatic treatment. overall prognosis guarded because of multiple complex medical issues. Further recommendations to follow. A copy of dictation being forwarded to Dr. Armenta who is the primary care physician. MMLELAND / KACIEN: [id number] /
[2018-12-04] MEDS: SODIUM CHLORIDE 0.9% 1,000 ML IV SCH ×3 (03:38→23:17)
[2018-12-04 05:48] LABS: Basophils # (A) 0.1 k/uL (0-0.2); Basophils % (A) 2 %; Eosinophils # (A) 0.2 k/uL (0-0.7); Eosinophils % (A) 3 %; HCT 46.7 % (39.0-53.0); HGB 15.7 gm/dL (13.0-17.5); Lymphocytes # (A) 1.6 k/uL (1.0-4.8); Lymphocytes % (A) 22 %; MCH 31.5 pg (25.0-35.0); MCHC 33.6 g/dL (31.0-37.0); MCV 93.8 fL (80.0-100.0); Mean Platelet Volume 8.2; Monocytes # (A) 0.5 k/uL (0-1.0); Monocytes % (A) 6 %; Neutrophils # (A) 4.7 k/uL (1.3-7.7); Neutrophils % (A) 65 %; Platelet Count 180 k/uL (150-450); RBC 4.98 m/uL (4.30-5.90); RDW 15.1 % (11.5-15.5); WBC 7.3 k/uL (3.8-10.6)
[2018-12-04 06:02] LABS: Glucose,Whole Blood 114 mg/dL (75-99)
[2018-12-04] MEDS: INSULIN ASPART (NovoLOG) 100 UNIT/ML VIAL SQ SCH ×4 (06:10→21:11)
[2018-12-04 07:01] LABS: Appearance,Urine Clear (Clear); Bilirubin,Urine Negative (Negative); Blood,Urine Negative (Negative); Color,Urine Yellow; Glucose,Urine (UA) 4+ (Negative); Ketones,Urine Negative (Negative); Leukocyte Esterase,Urine Negative (Negative); Nitrite,Urine Negative (Negative); PH, Urine 5.5 (5.0-8.0); Protein,Urine Negative (Negative); Specific Gravity,Urine 1.017 (1.001-1.035); Urobilinogen,Urine <2.0 mg/dL (<2.0)
--- NOTE | 2018-12-04 08:41 | P.CRDCN ---
History of Present Illness Consult date: 12/04/18 Requesting physician: Jet Montes Consult reason: sycope Chief complaint: Syncope History of present illness: This is a pleasant 63-year-old gentleman with known history of coronary artery disease with prior stent placement, patient had successful angioplasty of the RCA in 2013 prior to that patient did have a stent in that same vessel. History also of diabetes, hypertension, hyperlipidemia, former nicotine dependence. Patient had taken a recent quick trip on the weekend prior to this one, on returning home, he noticed some significant swelling in the right foot, there is no swelling in the left foot, no swelling in the right leg, basically in the right foot only. Patient had some old Lasix he thinks was at least 10 years old, he took one pill which was 80 mg. His daughter is a family practice physician, he gave her a call to let her know what he was doing. His blood pressure at that time was 138/60. Subsequent to that on of last week patient states he was down in [place], doing a significant amount of walking and became mildly short of breath, still continued to have the swelling in this foot. On Thursday, patient states he was down at [facility],sitting in a lawn chair, he did get up out of his lawn chair, walked to the food truck, became suddenly quite lightheaded and the next thing he recalls is waking up on the ground. The patient had been taking the 80 mg of Lasix daily, and was even told to take 2 on one particular day. He states that he was not putting out much more urine than his usual. Patient has one kidney and is known to have chronic renal insufficiency it appears that his baseline creatinine is usually in the range of 1.0. Creatinine on this admission was 2.4. White blood cell count 7.3, hemoglobin 15.7, platelet count 180. D-dimer 0.4. Sodium 138, potassium 3.5, BUN 39 on admission, 42 this morning. Creatinine 2.4 on admission, 2.2 this morning. Troponin 0.14, 0.11, 0.11. Mag 2.2. At the time of my examination this morning, patient overall feels well, he continues to have significant swelling in the right foot. Past Medical History Past Medical History: Coronary Artery Disease (CAD), Cancer, Chest Pain / Angina, CVA/TIA, Diabetes Mellitus, GI Bleed, Hyperlipidemia, Hypertension, Myocardial Infarction ([place]), Neurologic Disorder, Renal Disease Additional Past Medical History / Comment(s): SHINGLES 2014 RT SHOULDER/NECK PAIN SINCE. C-DIFF 2012. DIVERTICUALR DISEASE, neuropathy, 1998 lt kidney tumor(ca), has made changes in his diet and has dropped 40-45 #.CYST ON RT KIDNEY Last Myocardial Infarction Date:: 2012 History of Any Multi-Drug Resistant Organisms: None Reported Past Surgical History: Bowel Resection, Heart Catheterization With Stent, Hernia Repair, Tonsillectomy Additional Past Surgical History / Comment(s): 1998 TRANSITIONAL CELL CA " LT NEPHRECTOMY ,URETER AND PART OF BLADDER REMOVED,AFTERWARDS SWOLLEN LYMPH NODES WERE REMOVED- POSITIVE FOR NON HODGKINS LYMPHOMA BUT F/U PET SCAN-NO FURTHER CANCER"DEVELOPED POST OP INFECTION HAD PICC LINE FOR ABX. HX PHIMOSIS HAD ADULT CIRCUMCISION 03-22-14, STENTS TO RCA AND LAD.cataracts. IN THE HAD A PIECE OF METAL REMOVED FROM ABD - DEVELOPED SCAR TISSUE AND HAD PART OF LARGE INTESTINE REMOVED.2007 ABD HERNIA REPAIR. SX FOR SLEEP APNEA. COLONOSCOPY/POLYPECTOMY. Past Anesthesia/Blood Transfusion Reactions: No Reported Reaction Date of Last Stent Placement:: 05-15-08, 06-29-13, Past Psychological History: No Psychological Hx Reported Smoking Status: Current every day smoker Past Alcohol Use History: None Reported Past Drug Use History: None Reported - Past Family History Mother Additional Family Medical History / Comment(s): from complications from broken hip. dad hx lung cancer, emphysema, dm Father Family Medical History: Diabetes Mellitus Sister(s) Family Medical History: Diabetes Mellitus, Deep Vein Thrombosis (DVT) Medications and Allergies Home Medications Medication Instructions Recorded Confirmed Type Clopidogrel Bisulfate [Clopidogrel] 75 mg PO DAILY 02/04/14 12/03/18 History Lisinopril [Zestril] 5 mg PO DAILY #30 tab 05/12/14 12/03/18 Rx Albiglutide [Tanzeum] 50 mg SQ WE 08/26/16 12/03/18 History Gabapentin [Neurontin] 300 mg PO QAM 08/26/16 12/03/18 History Potassium 99 mg PO DAILY 08/26/16 12/03/18 History Cinnamon Bark [Cinnamon] 500 mg PO DAILY 10/10/16 12/03/18 History Furosemide [Lasix] 20 mg PO DAILY PRN 10/10/16 12/03/18 History Gabapentin [Neurontin] 600 mg PO HS 10/10/16 12/03/18 History Sildenafil Citrate [Sildenafil] 20 - 80 mg PO DAILY 10/10/16 12/03/18 History glipiZIDE [Glucotrol] 10 mg PO BID PRN 10/10/16 12/03/18 History traMADol HCL [Ultram] 100 mg PO Q6HR PRN 10/10/16 12/03/18 History Atorvastatin [Lipitor] 40 mg PO HS 12/03/18 12/03/18 History Empagliflozin [Jardiance] 25 mg PO DAILY 12/03/18 12/03/18 History Allergies Allergy/AdvReac Type Severity Reaction Status Date / Time Penicillins Allergy Unknown Verified 12/03/18 16:57 Childhood metformin AdvReac Nausea & Verified 12/03/18 16:57 Vomiting Physical Exam Vitals: Vital Signs Temp Pulse Pulse Resp BP BP Pulse Ox 12/04/18 03:25 98 F 68 18 112/71 12/04/18 03:23 62 18 12/03/18 23:52 98.5 F 62 18 122/75 12/03/18 20:00 97.7 F 70 18 96/57 98 12/03/18 18:21 98.5 F 75 18 141/75 95 12/03/18 16:12 64 18 128/87 96 12/03/18 12:58 97.9 F 71 16 102/70 97 Intake and Output 12/03/18 12/04/18 12/04/18 22:59 06:59 14:59 Intake Total 144.167 0 Balance 144.167 0 Intake: Intake, IV Titration 144.167 Amount Heparin Sod,Pork in 0.45% 144.167 NaCl 25,000 unit In 0.45 % NaCl 1 250ml.bag @ 11. 423 UNITS/KG/HR 10 mls/hr IV .Q24H [facility] Rx#: [id number] Oral 0 Other: # Voids 1 Weight 89.4 kg PHYSICAL EXAMINATION: GENERAL: 63-year-old gentleman in no acute distress at the time of my examination HEENT: Head is atraumatic, normocephalic. Pupils equal, round. Sclera anicteric. Conjunctiva are clear. Mucous membranes of the mouth are moist. Neck is supple. There is no elevated jugular venous pressure. No carotid bruit is heard. HEART EXAMINATION: Heart S1, S2 normal. No murmur or gallop heard. CHEST EXAMINATION: Lungs are clear to auscultation and precussion. No chest wall tenderness is noted on palpation or with deep breathing. ABDOMEN: Soft, nontender. Bowel sounds are heard. No organomegaly noted. EXTREMITIES: 2+ peripheral pulses with no evidence of peripheral edema and no calf tenderness noted. Patient's right foot is significantly swollen NEUROLOGIC patient is awake, alert and oriented 3. . Results 12/04/18 05:35 12/03/18 14:48 Cardiac Enzymes 12/03/18 12/03/18 12/03/18 Range/Units 14:48 14:48 20:26 AST 46 (17-59) U/L Troponin I 0.142 H* 0.116 H* (0.000-0.034) ng/mL 12/04/18 Range/Units 02:36 AST (17-59) U/L Troponin I 0.118 H* (0.000-0.034) ng/mL Coagulation 12/03/18 12/03/18 12/04/18 Range/Units 14:00 22:17 05:35 PT 11.1 (9.0-12.0) sec APTT 27.0 48.1 H 42.9 H (22.0-30.0) sec CBC 12/03/18 12/04/18 Range/Units 14:00 05:35 WBC 8.9 7.3 (3.8-10.6) k/uL RBC 5.39 4.98 (4.30-5.90) m/uL Hgb 17.0 15.7 (13.0-17.5) gm/dL Hct 49.0 46.7 (39.0-53.0) % Plt Count 217 180 (150-450) k/uL Comprehensive Metabolic Panel 12/03/18 12/03/18 Range/Units 12:01 14:48 Sodium 138 (137-145) mmol/L Potassium 3.5 (3.5-5.1) mmol/L Chloride 96 L (98-107) mmol/L Carbon Dioxide 31 H (22-30) mmol/L BUN 39 H 42 H (9-20) mg/dL Creatinine 2.42 H 2.25 H (0.66-1.25) mg/dL Glucose 114 H (74-99) mg/dL Calcium 9.7 (8.4-10.2) mg/dL AST 46 (17-59) U/L ALT 51 (21-72) U/L Alkaline Phosphatase 62 (38-126) U/L Total Protein 8.3 H (6.3-8.2) g/dL Albumin 4.8 (3.5-5.0) g/dL Current Medications Generic Name Dose Route Start Last Admin Trade Name Freq PRN Reason Stop Dose Admin Atorvastatin Calcium 40 mg 12/03/18 21:00 12/03/18 22:19 Lipitor PO 40 mg HS [facility] Administration Clopidogrel Bisulfate 75 mg 12/04/18 09:00 Plavix PO DAILY [facility] Gabapentin 300 mg 12/04/18 09:00 Neurontin PO QAM [facility] Gabapentin 600 mg 12/03/18 21:00 12/03/18 22:20 Neurontin PO 600 mg HS RICKIE Administration Glipizide 10 mg 12/03/18 20:33 Glucotrol PO BID PRN SUGAR LEVELS Heparin Sodium (Porcine) 0 unit 12/03/18 15:58 Heparin IV PER PROTOCOL PRN Low PTT Protocol Sodium Chloride 1,000 mls @ 100 mls/hr 12/03/18 16:00 12/04/18 03:38 Saline 0.9% IV Not Given .Q10H [facility] Heparin Sodium/Sodium Chloride 250 mls @ 10 mls/hr 12/03/18 16:00 12/04/18 06:56 25,000 unit/ Sodium Chloride IV 13.4 units/kg/hr .Q24H [facility] 11.731 mls/hr Titration Protocol 11.423 UNITS/KG/HR Insulin Aspart 0 unit 12/03/18 17:30 12/04/18 06:10 Novolog SQ Not Given ACHS [facility] Protocol Lisinopril 5 mg 12/04/18 09:00 Zestril PO DAILY [facility] Naloxone HCl 0.2 mg 12/03/18 15:31 Narcan IV Q2M PRN Opioid Reversal Empagliflozin [ 25 mg 12/04/18 09:00 Jardiance] PO DAILY [facility] Potassium Chloride 10 meq 12/04/18 09:00 K-Dur 10 PO DAILY [facility] Tramadol HCl 100 mg 12/03/18 20:33 12/03/18 22:22 Ultram PO 100 mg Q6HR PRN Administration Pain Intake and Output 12/03/18 12/04/18 12/04/18 22:59 06:59 14:59 Intake Total 144.167 0 Balance 144.167 0 Intake: Intake, IV Titration 144.167 Amount Heparin Sod,Pork in 0.45% 144.167 NaCl 25,000 unit In 0.45 % NaCl 1 250ml.bag @ 11. 423 UNITS/KG/HR 10 mls/hr IV .Q24H [facility] Rx#: [id number] Oral 0 Other: # Voids 1 Weight 89.4 kg 12/04/18 05:35 12/03/18 14:48 EKG Interpretations (text) EKG shows a normal sinus rhythm with no acute changes, first-degree AV block noted. Assessment and Plan Plan: Assessment and plan #1 syncope, likely secondary to hypotension from dehydration #2 right foot swelling, no evidence of DVT in the right lower extremity, VQ scan revealed low probability for pulmonary embolism. #3 hypertension #4 diabetes #5 hyperlipidemia #6 known history of coronary artery disease with prior RCA stenting #7 prior history of smoking #8 acute on chronic renal insufficiency, patient has one kidney, creatinine 2.2, baseline creatinine appears to be in the range of 1.1 #9 Non- [place] related troponin elevation, likely secondary to abnormal renal function Plan We will obtain an echocardiogram with Doppler study and continue to check or thostatic heart rate and blood pressure every shift. Discontinue lisinopril, continue to hydrate with 100 mL of IV fluids. Discontinue IV heparin. Initiate a baby aspirin, continue Plavix. Further recommendations to follow. DNP note has been reviewed, I agree with a documented findings and plan of care. Patient was seen and examined.
[2018-12-04 08:46] LABS: Calcium 8.9 mg/dL (8.4-10.2); Potassium 3.8 mmol/L (3.5-5.1)
[2018-12-04] MEDS ORDERED: LISINOPRIL 5 MG TAB PO SCH (09:00)
[2018-12-04] MEDS: ASPIRIN 81 MG PO SCH (09:18)
[2018-12-04] MEDS: GABAPENTIN 300 MG CAP PO SCH ×2 (09:18→20:43)
[2018-12-04] MEDS: POTASSIUM CHLORIDE ER 10 MEQ TAB.ER.PRT PO SCH (09:18)
[2018-12-04] MEDS: CLOPIDOGREL 75 MG TAB PO SCH (09:18)
[2018-12-04] MEDS: Empagliflozin [Jardiance] PO SCH (09:18)
[2018-12-04 12:39] LABS: Glucose,Whole Blood 220 mg/dL (75-99)
[2018-12-04 17:05] LABS: Glucose,Whole Blood 128 mg/dL (75-99)
[2018-12-04] MEDS: traMADol 50 MG TAB PO PRN (20:43)
[2018-12-04] MEDS: ATORVASTATIN 40 MG TAB PO SCH (20:44)
[2018-12-04 20:45] LABS: Glucose,Whole Blood 176 mg/dL (75-99)
[2018-12-04] MEDS: COLCHICINE 0.6 MG EACH PO SCH (21:19)
--- NOTE | 2018-12-04 22:17 | PN ---
PROGRESS NOTE DATE OF SERVICE: 12/04/2018 This 63-year-old gentleman admitted with syncope and palpitation, also had elevated troponin and also elevated creatinine as well. The patient is also being evaluated by Cardiology. The patient also had right foot swelling also. The patient's uric acid is elevated at 13.1, indicating possible acute gouty episodes as well. Otherwise, ESR is only 5. PAST MEDICAL HISTORY: Reviewed. REVIEW OF SYSTEMS: Cardiovascular system: As mentioned earlier. RESPIRATORY: As mentioned earlier. GI no nausea and vomiting. : No dysuria. NERVOUS SYSTEM: No numbness or weakness. CURRENT MEDICATIONS ARE: Reviewed and include: 1. Aspirin 81 mg p.o. daily. 2. Lipitor 40 mg q.h.s. 3. Plavix 75 mg. 4. Neurontin 600 mg q.h.s. 5. Neurontin 300 mg q.a.m. 6. Glucotrol 10 mg p.o. b.i.d. 7. NovoLog scale. 8. Narcan 0.2 q.2 p.r.n. 9. Jardiance 25 mg p.o. daily. 10.K-Dur 20 mEq p.o. daily. 11.Ultram 100 mg q.6 p.r.n. PHYSICAL EXAM: Patient is alert, oriented x3. Pulse is 67. Blood pressure 117/70, respiration 18, temperature 97.4, pulse ox 97% on room air. HEENT: Conjunctivae normal. NECK: No JVD. CARDIOVASCULAR: S1, S2 normal. RESPIRATORY: Breath sounds diminished in the bases. A few scattered rhonchi and crackles. ABDOMEN is soft, nontender. LEGS are no edema. No swelling. CENTRAL NERVOUS SYSTEM: No focal deficits. LABS: CBC within normal limits. Creatinine is 2.01, glucose 128. ASSESSMENT: 1. Syncope, possibly vasovagal or secondary from hypotension and dehydration. 2. Troponin 0.14. Rule out acute non ST segment elevation myocardial infarction. 3. Elevated creatinine, possible acute renal failure possibly prerenal renal failure with acute tubular necrosis. 4. Pain and swelling of the right foot, possible acute gout. 5. History of coronary artery disease/stent. 6. History of cerebrovascular accident, transient ischemic attack. 7. Diabetes mellitus type 2. 8. Peripheral neuropathy. 9. Gastrointestinal bleed. 10.Hypertension. 11.Hyperlipidemia. 12.History of myocardial infarction. 13.History of shingles. 14.History of diverticulitis. 15.History of C difficile colitis. 16.History of transitional carcinoma and nephrectomy. 17.History of nicotine dependence. RECOMMENDATIONS AND DISCUSSION: Recommend to continue current medications, management and symptomatic treatment. Cardiology is recommending a 2D echo with Doppler. Lisinopril has been discontinued. Gentle hydration. Continue to monitor. I would also add a small dose of colchicine and continue to monitor. The prognosis is guarded because of multiple complex medical issues. Further recommendations to follow. MMODL / IJN: [id number] /
[2018-12-05 06:04] LABS: Glucose,Whole Blood 248 mg/dL (75-99)
[2018-12-05 06:29] LABS: Basophils # (A) 0.1 k/uL (0-0.2); Basophils % (A) 1 %; Eosinophils # (A) 0.2 k/uL (0-0.7); Eosinophils % (A) 3 %; HGB 15.1 gm/dL (13.0-17.5); Lymphocytes # (A) 1.2 k/uL (1.0-4.8); Lymphocytes % (A) 20 %; MCH 31.2 pg (25.0-35.0); MCHC 32.9 g/dL (31.0-37.0); MCV 94.9 fL (80.0-100.0); Mean Platelet Volume 7.3; Monocytes # (A) 0.4 k/uL (0-1.0); Monocytes % (A) 6 %; Neutrophils # (A) 4.1 k/uL (1.3-7.7); Neutrophils % (A) 68 %; Platelet Count 178 k/uL (150-450); RBC 4.85 m/uL (4.30-5.90); RDW 13.3 % (11.5-15.5)
[2018-12-05] MEDS: INSULIN ASPART (NovoLOG) 100 UNIT/ML VIAL SQ SCH ×4 (06:34→21:29)
[2018-12-05 06:48] LABS: Calcium 8.6 mg/dL (8.4-10.2)
[2018-12-05] MEDS: Empagliflozin [Jardiance] PO SCH (08:30)
[2018-12-05] MEDS: GABAPENTIN 300 MG CAP PO SCH ×2 (08:32→20:42)
[2018-12-05] MEDS: SODIUM CHLORIDE 0.9% 1,000 ML IV SCH ×2 (08:32→23:21)
[2018-12-05] MEDS: COLCHICINE 0.6 MG EACH PO SCH ×2 (08:32→20:41)
[2018-12-05] MEDS: ASPIRIN 81 MG PO SCH (08:32)
[2018-12-05] MEDS: CLOPIDOGREL 75 MG TAB PO SCH (08:32)
[2018-12-05] MEDS: POTASSIUM CHLORIDE ER 10 MEQ TAB.ER.PRT PO SCH (08:32)
--- NOTE | 2018-12-05 10:06 | P.PN ---
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 He was diagnosed with dehydration. He was in acute renal failure. On follow-up with him today, he stated that overall he is feeling better. The vitals are stable. The creatinine has improved. He continues to be on IV fluid. He has been diuresing very well. He underwent an echocardiogram which we will follow-up with. Objective - Vital Signs Vital signs: Vital Signs Temp 97.9 F 12/05/18 08:00 Pulse 58 L 12/05/18 08:00 Resp 18 12/05/18 08:00 BP 126/60 12/05/18 08:00 Pulse Ox 97 12/05/18 08:00 Intake & Output 12/04/18 12/05/18 12/05/18 18:59 06:59 18:59 Intake Total 720 200 200 Balance 720 200 200 Weight 91.6 kg Intake: Intake, IV Titration 200 Amount Sodium Chloride 0.9% 1, 200 000 ml @ 100 mls/hr IV . Q10H [facility] Rx#:[id number] Oral 720 200 Other: # Voids 2 3 - Constitutional General appearance: Present: no acute distress - Respiratory Respiratory: bilateral: CTA - Cardiovascular Rhythm: regular Heart sounds: normal: S1, S2 - Labs CBC & Chem 7: 12/05/18 05:35 12/05/18 05:35 Labs: Abnormal Lab Results - Last 24 Hours (Table) 12/04/18 12/04/18 12/04/18 Range/Units 12:15 17:01 20:44 BUN (9-20) mg/dL Creatinine (0.66-1.25) mg/dL Glucose (74-99) mg/dL POC Glucose (mg/dL) 220 H 128 H 176 H (75-99) mg/dL 12/05/18 12/05/18 Range/Units 05:35 05:59 BUN 29 H (9-20) mg/dL Creatinine 1.42 H (0.66-1.25) mg/dL Glucose 190 H (74-99) mg/dL POC Glucose (mg/dL) 248 H (75-99) mg/dL Assessment and Plan Assessment: Assessment #1 syncope likely related to dehydration #2 acute renal failure which has improved #3 coronary artery disease #4 multiple comorbid conditions Plan #1 continue the current medical regimen #2 try to get the patient up and around #3 continue monitor the kidney function and electrolytes #4 follow-up on the echocardiogram
[2018-12-05 11:48] LABS: Glucose,Whole Blood 158 mg/dL (75-99)
--- NOTE | 2018-12-05 13:52 | ECHOF ---
Referral Reason:[facility] MEASUREMENTS -------- HEIGHT: 175.3 cm WEIGHT: 89.4 kg BP: 112/71 RVIDd: 3.3 cm (< 3.3) IVSd: 1.4 cm (0.6 - 1.1) LVIDd: 4.2 cm (3.9 - 5.3) LVPWd: 1.3 cm (0.6 - 1.1) IVSs: 1.9 cm LVIDs: 2.7 cm LVPWs: 1.7 cm LAESV Index (A-L): 16.17 ml/m Ao Diam: 3.9 cm (2.0 - 3.7) AV Cusp: 2.1 cm (1.5 - 2.6) LA Diam: 3.9 cm (2.7 - 3.8) MV EXCURSION: 15.228 mm (> 18.000) MV EF SLOPE: 148 mm/s (70 - 150) EPSS: 0.8 cm MV E Syd: 0.87 m/s MV DecT: 173 ms MV A Syd: 0.95 m/s MV E/A Ratio: 0.92 RAP: 5.00 mmHg RVSP: 32.67 mmHg FINDINGS -------- Sinus rhythm. This was a technically difficult study with suboptimal apical views. The left ventricular size is normal. There is moderate concentric left ventricular hypertrophy. T here is normal global left ventricular contractility. Overall left ventricular systolic function is low-normal with, an EF between 50 - 55 %. The diastolic filling pattern is normal for the age of t he patient 9.35. The right ventricle is mildly enlarged. Normal LA size by volume 22+/-6 ml/m2. The right atrial size is normal. 5.0mg of Lumason was utilized for enhancement of images Interatrial and interventricular septum intact. The aortic valve is trileaflet and appears structurally normal. There is no evidence of aortic regu rgitation. There is no evidence of aortic stenosis. There is trace mitral regurgitation. Mild tricuspid regurgitation present. There is borderline pulmonary artery hypertension. The righ t ventricular systolic pressure, as measured by Doppler, is 32.67mmHg. There is no pulmonic regurgitation present. The aortic root is mildy dilated. Normal inferior vena cava with normal inspiratory collapse consistent with estimated right atrial pre ssure of 5 mmHg. There is no pericardial effusion. CONCLUSIONS -------- 1. Sinus rhythm. 2. This was a technically difficult study with suboptimal apical views. 3. The left ventricular size is normal. 4. There is moderate concentric left ventricular hypertrophy. 5. There is normal global left ventricular contractility. 6. The diastolic filling pattern is normal for the age of the patient 9.35 7. The right ventricle is mildly enlarged. 8. Normal LA size by volume 22+/-6 ml/m2. 9. The right atrial size is normal. 10. 5.0mg of Lumason was utilized for enhancement of images 11. Interatrial and interventricular septum intact. 12. The aortic valve is trileaflet and appears structurally normal. 13. There is no evidence of aortic regurgitation. 14. There is no evidence of aortic stenosis. 15. There is trace mitral regurgitation. 16. Mild tricuspid regurgitation present. 17. There is borderline pulmonary artery hypertension. 18. The right ventricular systolic pressure, as measured by Doppler, is 32.67mmHg. 19. There is no pulmonic regurgitation present. 20. The aortic root is mildy dilated. 21. Normal inferior vena cava with normal inspiratory collapse consistent with estimated right atrial pressure of 5 mmHg. 22. There is no pericardial effusion. RN LICENSED PRACTICAL: Shabnam Tucker RDCS
[2018-12-05 17:10] LABS: Glucose,Whole Blood 131 mg/dL (75-99)
[2018-12-05] MEDS: ATORVASTATIN 40 MG TAB PO SCH (20:42)
[2018-12-05] MEDS: traMADol 50 MG TAB PO PRN (20:45)
[2018-12-05 21:18] LABS: Glucose,Whole Blood 190 mg/dL (75-99)
--- NOTE | 2018-12-05 22:21 | PN ---
PROGRESS NOTE DATE OF SERVICE: 12/05/2018 This 63-year-old gentleman who was admitted with syncope also had elevated troponin. Cardiology following the patient closely. No chest pain. No palpitation. Creatinine is improving significantly. EXAM: Alert and oriented x3. Pulse 56, blood pressure 130/70, respiration 18, temperature 97.4, pulse ox 98 percent on room air. HEENT: Conjunctivae normal. NECK: No jugular venous distention. CARDIOVASCULAR: S1, S2 muffled. RESPIRATORY: Breath sounds diminished in the bases. A few scattered rhonchi and crackles. ABDOMEN is soft, nontender. LEGS: Right leg swelling. NERVOUS SYSTEM: No focal deficits. LABS: Creatinine is 1.42. Troponin 0.118. ASSESSMENT: 1. Syncope, possibly vasovagal secondary from hypotension, dehydration. 2. Troponin 0.14. Rule out acute non ST-segment elevation myocardial infarction. 3. Elevated creatinine, possible acute renal failure, possibly prerenal acute renal failure with acute tubular necrosis. 4. Pain and swelling of the right foot, possible acute gout. 5. History of coronary artery disease/ stent. 6. History of cerebrovascular accident, transient ischemic attack. 7. Diabetes mellitus type 2. 8. Peripheral neuropathy. 9. History of gastrointestinal bleed. 10.Hypertension. 11.Hyperlipidemia. 12.History of myocardial infarction. 13.History of shingles. 14.History of diverticulitis. 15.History of C difficile colitis. 16.History of transitional carcinoma and nephrectomy. 17.History of nicotine dependence. RECOMMENDATIONS AND DISCUSSION: Recommend to continue current medications, continue with monitoring, management and symptomatic treatment. Otherwise, at this time, I recommend continue with current medications. I would monitor the blood sugars closely. Monitor the creatinine closely. Otherwise, follow closely with Cardiology. Prognosis guarded. Further recommendations to follow. MMODL / IJN: [id number] /
[2018-12-06 04:16] VITALS: RESP 16
[2018-12-06 06:09] LABS: Glucose,Whole Blood 155 mg/dL (75-99)
[2018-12-06 06:48] LABS: Basophils # (A) 0.1 k/uL (0-0.2); Basophils % (A) 1 %; Eosinophils # (A) 0.2 k/uL (0-0.7); Eosinophils % (A) 3 %; HCT 47.8 % (39.0-53.0); Lymphocytes # (A) 1.3 k/uL (1.0-4.8); Lymphocytes % (A) 18 %; MCH 31.2 pg (25.0-35.0); MCHC 33.5 g/dL (31.0-37.0); MCV 93.3 fL (80.0-100.0); Mean Platelet Volume 7.2; Monocytes # (A) 0.5 k/uL (0-1.0); Monocytes % (A) 7 %; Neutrophils % (A) 69 %; Platelet Count 178 k/uL (150-450); RBC 5.13 m/uL (4.30-5.90); RDW 13.2 % (11.5-15.5); WBC 7.3 k/uL (3.8-10.6)
[2018-12-06] MEDS: INSULIN ASPART (NovoLOG) 100 UNIT/ML VIAL SQ SCH ×2 (06:55→12:16)
[2018-12-06 07:12] LABS: Calcium 8.9 mg/dL (8.4-10.2); Potassium 3.7 mmol/L (3.5-5.1)
--- NOTE | 2018-12-06 09:05 | P.PN ---
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 He was diagnosed with dehydration. He was in acute renal failure. On follow-up with the patient today, 12/06/2018, the patient is feeling overall better. The right leg edema has improved. He denies any symptoms of chest pain or chest discomfort. The echocardiogram revealed normal LV function without significant valvular abnormalities. From the cardiac vascular standpoint of view, the patient might be able to be discharged home. I am going to discharge the patient on 20 mg by mouth twice a day of Lasix. Also I did advise the patient to wear compression socks. Objective - Vital Signs Vital signs: Vital Signs Temp 98.1 F 12/06/18 04:00 Pulse 64 12/06/18 04:00 Resp 16 12/06/18 04:00 BP 141/77 12/06/18 04:00 Pulse Ox 98 12/06/18 04:00 Intake & Output 12/05/18 12/06/18 12/06/18 18:59 06:59 18:59 Intake Total 430 200 Balance 430 200 Weight 92.4 kg Intake: Oral 430 200 Other: Voiding Method Toilet # Voids 3 2 - Constitutional General appearance: Present: no acute distress - Respiratory Respiratory: bilateral: CTA - Cardiovascular Rhythm: regular Heart sounds: normal: S1, S2 - Labs CBC & Chem 7: 12/06/18 06:19 12/06/18 06:19 Labs: Abnormal Lab Results - Last 24 Hours (Table) 12/05/18 12/05/18 12/05/18 Range/Units 11:46 17:07 21:16 Glucose (74-99) mg/dL POC Glucose (mg/dL) 158 H 131 H 190 H (75-99) mg/dL 12/06/18 12/06/18 Range/Units 06:07 06:19 Glucose 147 H (74-99) mg/dL POC Glucose (mg/dL) 155 H (75-99) mg/dL Assessment and Plan Assessment: Assessment #1 syncope likely related to dehydration #2 acute renal failure which has improved #3 coronary artery disease #4 multiple comorbid conditions Plan #1 continue the current medical regimen #2 the patient can be discharged home
[2018-12-06] MEDS: POTASSIUM CHLORIDE ER 10 MEQ TAB.ER.PRT PO SCH (09:26)
[2018-12-06] MEDS: GABAPENTIN 300 MG CAP PO SCH (09:26)
[2018-12-06] MEDS: ASPIRIN 81 MG PO SCH (09:26)
[2018-12-06] MEDS: COLCHICINE 0.6 MG EACH PO SCH (09:26)
[2018-12-06] MEDS: Empagliflozin [Jardiance] PO SCH (09:26)
[2018-12-06] MEDS: CLOPIDOGREL 75 MG TAB PO SCH (09:26)
[2018-12-06 11:46] LABS: Glucose,Whole Blood 151 mg/dL (75-99)
[2018-12-06 11:52] VITALS: BP 159/86; PULSE 56; TEMP 97.6
[2018-12-06] MEDS ORDERED: FUROSEMIDE 20 MG TAB PO SCH (16:00)
--- NOTE | 2018-12-07 05:22 | DS ---
DISCHARGE SUMMARY DATE OF SERVICE: 12/06/2018 FINAL DIAGNOSES: 1. Syncope, possibly vasovagal secondary from hypotension and dehydration. 2. Troponin 0.14, indeterminate. 3. Elevated creatinine, possible acute renal failure with possible prerenal acute renal failure with acute tubular necrosis. 4. Pain and swelling of the right foot, possible acute gout. 5. History of coronary artery disease, stent. 6. History of cerebrovascular accident, transient ischemic attack. 7. History of diabetes type 2. 8. Peripheral neuropathy. 9. History of gastrointestinal bleed. 10.Hypertension. 11.Hyperlipidemia. 12.History of myocardial infarction. 13.History of shingles. 14.History of diverticulitis. 15.History of Clostridium difficile colitis. 16.History of transitional cell carcinoma and nephrectomy. 17.History of nicotine dependence. DISCHARGE DISPOSITION: The patient will be discharged in stable condition with guarded prognosis. HISTORY OF PRESENT ILLNESS: This 63-year-old gentleman with a past medical history of multiple medical problems admitted with syncope and multiple other complex medical issues as mentioned earlier. The patient was treated in conjunction with Cardiology. Cardiology saw the patient and recommended outpatient followup. Please refer to Cardiology dictation for further details. Otherwise myocardial infarction was thought to be unlikely per Cardiology. A 2-D echo with Doppler was also done which showed ejection fraction about 50% to 55%. The patient also had features of gout and treated with colchicine, improved significantly. Recommended outpatient followup. The uric acid was found to be 13.1. On exam, vitals are stable. CARDIOVASCULAR: S1, S2 muffled. ABDOMEN: Soft. NERVOUS SYSTEM: No focal deficits. DISCHARGE ADVICE: 1. Diet is cardiac. 2. Activity limited until followup. 3. Follow up with Dr. Armenta in 2 to 3 days. 4. Follow up with Cardiology as recommended. Medications are: 1. Cinnamon 500 mg p.o. daily. 2. Plavix 75 mg p.o. daily. 3. Glucotrol 10 mg p.o. b.i.d. p.r.n. 4. Jardiance 25 mg p.o. daily. 5. Lipitor 40 mg q.h.s. 6. Neurontin 300 mg q.a.m. and 600 mg q.h.s. 7. Potassium 99 mg p.o. daily. 8. Sildenafil 20 to 80 mg p.o. daily. 9. Tanzeum 50 mg p.o. Thursday. 10.Ultram 100 mg q.6 p.r.n. 11.Aspirin 81 mg p.o. daily. 12.Colcrys 0.6 daily. 13.Lasix 20 mg p.o. daily. Once again, the patient will be discharged in a stable condition with guarded prognosis. MMJADEL / KACIEN: [id number] /
== END 2018-12-06 12:45 | disposition home or self-care (01) | DRG 683 ==
LOC: EC 12:50 → 3SCARD 15:31
PROVIDERS: ADMIT Hospitalist; ATTEND Hospitalist
DX: N17.0 Acute kidney failure with tubular necrosis (principal); I13.0 Hypertensive heart and chronic kidney disease with heart failure and stage 1 through stage 4 chronic kidney disease, or unspecified chronic kidney disease; I50.30 Unspecified diastolic (congestive) heart failure; I95.9 Hypotension, unspecified; E86.0 Dehydration; E11.22 Type 2 diabetes mellitus with diabetic chronic kidney disease; E11.42 Type 2 diabetes mellitus with diabetic polyneuropathy; E78.5 Hyperlipidemia, unspecified; F17.210 Nicotine dependence, cigarettes, uncomplicated; G47.30 Sleep apnea, unspecified; Z86.010 Personal history of colon polyps; I25.10 Atherosclerotic heart disease of native coronary artery without angina pectoris; I25.2 Old myocardial infarction; M10.9 Gout, unspecified; N18.9 Chronic kidney disease, unspecified; Z91.81 History of falling; Z79.02 Long term (current) use of antithrombotics/antiplatelets; Z79.84 Long term (current) use of oral hypoglycemic drugs; Z79.899 Other long term (current) drug therapy; Z82.5 Family history of asthma and other chronic lower respiratory diseases; Z83.3 Family history of diabetes mellitus; Z80.1 Family history of malignant neoplasm of trachea, bronchus and lung; Z83.2 Family history of diseases of the blood and blood-forming organs and certain disorders involving the immune mechanism; Z85.528 Personal history of other malignant neoplasm of kidney; Z90.5 Acquired absence of kidney; Z85.72 Personal history of non-Hodgkin lymphomas; Z86.19 Personal history of other infectious and parasitic diseases; Z86.73 Personal history of transient ischemic attack (TIA), and cerebral infarction without residual deficits; Z95.5 Presence of coronary angioplasty implant and graft; Z90.49 Acquired absence of other specified parts of digestive tract; Z88.0 Allergy status to penicillin; Z88.8 Allergy status to other drugs, medicaments and biological substances; Z87.19 Personal history of other diseases of the digestive system
CPT/HCPCS: 36415; 70450; 71046; 78582; 80048; 80053; 81003; 82550; 82565; 83735; 83880; 84484; 84520; 84550; 85025; 85379; 85610; 85652; 85730; 86140; 93005; 93306; 96365; 96376; 99285

== ENCOUNTER → 2018-12-09 | Outpatient (CLI) | payer MEDICARE, BC ==
[2018-12-09 08:56] LABS: Basophils # (A) 0.2 k/uL (0-0.2); Basophils % (A) 2 %; Eosinophils # (A) 0.2 k/uL (0-0.7); Eosinophils % (A) 2 %; HCT 51.3 % (39.0-53.0); HGB 17.5 gm/dL (13.0-17.5); Lymphocytes % (A) 19 %; MCH 31.9 pg (25.0-35.0); MCHC 34.1 g/dL (31.0-37.0); MCV 93.7 fL (80.0-100.0); Mean Platelet Volume 7.2; Monocytes # (A) 0.9 k/uL (0-1.0); Monocytes % (A) 9 %; Neutrophils # (A) 6.9 k/uL (1.3-7.7); Neutrophils % (A) 65 %; Platelet Count 225 k/uL (150-450); RBC 5.47 m/uL (4.30-5.90); RDW 13.3 % (11.5-15.5); WBC 10.6 k/uL (3.8-10.6)
[2018-12-09 16:29] LABS: Albumin 4.6 g/dL (3.80-4.90); Albumin/Globulin Ratio 1.92 (1.60-3.17); Anion Gap 10.2 mmol/L (4.00-12.00); BUN/Creat Ratio 12.94 Ratio (12.00-20.00); Calcium 9.7 mg/dL (8.7-10.3); Carbon Dioxide 27.8 mmol/L (21.6-31.8); Globulin 2.4 g/dL (1.6-3.3); Potassium 3.9 mmol/L (3.5-5.5); Total Bilirubin 0.7 mg/dL (0.2-1.2)
== END | disposition home or self-care (01) ==
LOC: LABWHC1 07:52
PROVIDERS: ATTEND Hospitalist
DX: N17.9 Acute kidney failure, unspecified (principal)
CPT/HCPCS: 36415; 80053; 85025

== ENCOUNTER → 2019-01-06 | Day surgery (SDC) | payer MEDICARE, BC ==
[2019-01-04 15:58] VITALS: BMI 28.3
[~2019-01-06] MED LIST: HEPARIN SODIUM 1,000 UN/ML (10ML VL) IV ONE; IOPAMIDOL-250 100ML BTL IV ONE; LIDOCAINE 1% INJ 10MG/ML (20 ML MDV) SQ ONE; MIDAZOLAM PF (FBP) 2 MG/2 ML VIAL IVP ONE; SODIUM CHLORIDE 0.9% 1,000 ML IV SCH; SODIUM CHLORIDE 0.9% 500 ML 500 ML IV ONE; fentaNYL (PF) 50 MCG/ML 2 ML AMP IV ONE
[2019-01-06 09:27] VITALS: TEMP 98.2
[2019-01-06 09:37] LABS: Glucose,Whole Blood 141 mg/dL (75-99)
[2019-01-06 12:29] VITALS: BP 132/73; PULSE 78; RESP 18
--- NOTE | 2019-01-06 13:11 | AN ---
ANGIOGRAPHY REPORT DATE OF SERVICE: January 06, 2019 PERFORMING PHYSICIAN: Devin Novak MD. PROCEDURE PERFORMED: Intravascular ultrasound, IVUS, of bilateral lower extremities. INDICATION: This is a pleasant 63-year-old gentleman who was struggling with right lower extremity and mainly right lower foot edema. DVT was ruled out. Because of that, he was brought today to assess his iliac vein and rule out May-Thurner syndrome. COMPLICATION: None. LEVEL OF SEDATION: Moderate with a sedation length of 55 minutes. PROCEDURE DESCRIPTION: After obtaining an informed consent, the patient was brought to the cardiac laboratory immunologist. The patient was flipped on his abdomen. Subsequently I did access both popliteal veins using micropuncture technique under ultrasound guidance, the micropuncture wire passed easily then I placed two 6-Telugu sheaths in both popliteal veins. Subsequently I did IVUS of both lower extremities using manual pullback. The procedure was completed without any complication. FINDING: We found that both bilateral common iliac veins and bilateral external iliac veins are compressed and narrow with significant stenosis. Also, we found that external iliac veins have a thick wall and fibrotic changes with possible clots as well. Beside that, we found that both common femoral veins are dilated because of the obstruction in the outflow. CONCLUSION: Compression of both common and external iliac veins bilaterally. POSTPROCEDURE MANAGEMENT: The patient will be brought back to undergo stenting of both iliac veins with guidance of IVUS. MMODL / IJN: [id number] /
--- NOTE | 2019-01-07 09:06 | IR ---
Fluoroscopy HISTORY: Right lower extremity swelling 2.5 minutes fluoroscopy time supplied to the referring clinician. 192 intraoperative C-arm images do cument the procedure. See dictated report from cardiology.
== END ==
LOC: CATHCVL 09:04
PROVIDERS: ATTEND Internal Medicine Interventional Cardiology
DX: I87.1 Compression of vein (principal); I87.8 Other specified disorders of veins; I86.8 Varicose veins of other specified sites; I25.10 Atherosclerotic heart disease of native coronary artery without angina pectoris; I10 Essential (primary) hypertension; Z72.0 Tobacco use; Z95.5 Presence of coronary angioplasty implant and graft; E11.9 Type 2 diabetes mellitus without complications; E78.5 Hyperlipidemia, unspecified; M10.9 Gout, unspecified; I25.2 Old myocardial infarction; Z79.84 Long term (current) use of oral hypoglycemic drugs; Z79.02 Long term (current) use of antithrombotics/antiplatelets; Z79.82 Long term (current) use of aspirin; Z79.899 Other long term (current) drug therapy; Z88.0 Allergy status to penicillin; Z88.7 Allergy status to serum and vaccine
CPT/HCPCS: 37252; 37253; C1769 ×4; C1894; C1753; J2001; J3010; J1644; Q9966; J2250; 75820

== ENCOUNTER 2019-01-19 09:57 | Day surgery (SDC) | payer MEDICARE, BC ==
[2019-01-17 14:10] VITALS: BMI 29.0
[~2019-01-19 09:57] MED LIST changes: +ALPRAZolam 0.25 MG TAB PO PRN; +ALPRAZolam 0.5 MG TAB PO PRN; +ASPIRIN 325 MG TAB PO STA; +ATORVASTATIN 80 MG TAB PO STA; -HEPARIN SODIUM 1,000 UN/ML (10ML VL) IV ONE; -IOPAMIDOL-250 100ML BTL IV ONE; -LIDOCAINE 1% INJ 10MG/ML (20 ML MDV) SQ ONE; -MIDAZOLAM PF (FBP) 2 MG/2 ML VIAL IVP ONE; +NITROGLYCERIN SL TABS 0.4 MG TAB SUBLINGUAL PRN; -SODIUM CHLORIDE 0.9% 1,000 ML IV SCH; +SODIUM CHLORIDE 0.9% 1,000 ML in EMPTY BAG 1 BAG IV ONE; -SODIUM CHLORIDE 0.9% 500 ML 500 ML IV ONE; -fentaNYL (PF) 50 MCG/ML 2 ML AMP IV ONE
[2019-01-19] MEDS ORDERED: HYDROmorphone 1 MG/ML 1 ML SYRINGE ONE ×3 (10:13→15:34)
[2019-01-19] MEDS ORDERED: ASPIRIN 81 MG ONE (10:14)
[2019-01-19 10:34] LABS: Glucose,Whole Blood 174 mg/dL (75-99)
[2019-01-19] MEDS ORDERED: LIDOCAINE 1% INJ 10MG/ML (20 ML MDV) ONE ×4 (13:02→14:37)
[2019-01-19] MEDS ORDERED: VERAPAMIL 2.5 MG/ML 2 ML AMP ONE (13:02)
[2019-01-19] MEDS ORDERED: HEPARIN SODIUM 1,000 UN/ML (10ML VL) ONE (13:02)
[2019-01-19] MEDS ORDERED: fentaNYL (PF) 50 MCG/ML 2 ML AMP ONE (13:08)
[2019-01-19] MEDS ORDERED: fentaNYL (PF) 50 MCG/ML 2 ML AMP IVP ONE (13:10)
[2019-01-19] MEDS ORDERED: LIDOCAINE 1% INJ 10MG/ML (20 ML MDV) SQ ONE ×4 (13:10→14:40)
[2019-01-19] MEDS ORDERED: MIDAZOLAM (PF) 2 MG/2 ML VIAL IVP ONE (13:13)
[2019-01-19] MEDS ORDERED: HYDROmorphone 1 MG/ML 1 ML SYRINGE IVP ONE (13:22)
[2019-01-19] MEDS ORDERED: HEPARIN SODIUM 1,000 UN/ML (10ML VL) IV ONE (13:31)
[2019-01-19] MEDS: MIDAZOLAM (PF) 2 MG/2 ML VIAL IVP ONE ×2 (13:42→14:06)
[2019-01-19] MEDS ORDERED: VERAPAMIL SYRINGE (5 MG/10 ML) INTRAARTER ONE (14:42)
[2019-01-19] MEDS ORDERED: CLOPIDOGREL 75 MG TAB ONE (14:55)
[2019-01-19] MEDS ORDERED: CLOPIDOGREL 75 MG TAB PO ONE (14:57)
[2019-01-19] MEDS ORDERED: IOPAMIDOL-370 125ML BTL INJ ONE (14:57)
[2019-01-19] MEDS ORDERED: RX INFO: IV CONTRAST WAS GIVEN 1 EACH MISC MISCELLANE PRN (15:16)
--- NOTE | 2019-01-19 15:21 | IR ---
EXAMINATION TYPE: IR stent intravas non coronary DATE OF EXAM: 01/19/2019 COMPARISON: NONE HISTORY: Fluoroscopy time. Fluoroscopy was provided to the referring clinician.
[2019-01-19] MEDS ORDERED: SODIUM CHLORIDE 0.9% 1,000 ML IV SCH (15:30)
--- NOTE | 2019-01-19 15:30 | P.PCN ---
Date of Procedure: 01/19/19 Operative Findings: CARDIAC CATHETERIZATION PERFORMING PHYSICIAN: Devin Novak MD, RPVI PROCEDURE PERFORMED: 1. Selective right and left coronary angiogram 2. Left heart catheterization INDICATION: This is a pleasant 63-year-old gentleman with history of coronary artery disease and prior stenting of the RCA in the past, the patient did not follow-up with any emergency physician for the last 8 years, hypertension, dyslipidemia, was experiencing symptoms of atypical chest discomfort and he underwent myocardial perfusion imaging stress test and that revealed inferior ischemia area because of.heart catheterization was advised. COMPLICATION: None APPROACH: Right radial artery LEVEL OF SEDATION: Moderate. The sedation was 20 minutes. PROCEDURE DESCRIPTION: After obtaining an informed consent, the patient was brought to cardiac labor and employment paralegal. Local anesthesia was performed using lidocaine subcutaneously. The right radial artery was cannulated using Seldinger technique, the guidewire passed easily, following that we advanced a 5-Moroccan sheath dilator assembly, the wire and dilator were removed and sheath was flushed. Following that, 2 mg of verapamil along with 5000 unit heparin were given. Selective right and left coronary angiogram using a 6-Moroccan JR4 and JL 3.5 catheters. Following that we did left heart catheterization using 6-Moroccan pigtail catheter. The procedure was completed there was no complication. SELECTIVE CORONARY ANGIOGRAM: The right coronary artery: Is a large caliber vessel and a dominant vessel. The RCA is a stented and the RCA is chronically occluded and fills by collateral from the left coronary system. Left main: Has mild disease only appears to be in the range of 20-30%. The left circumflex: Is a moderate caliber vessel and nondominant vessel. The proximal left circumflex has a lesion appears to be in the range of 60-70%. It gives rises into OM1 which has proximal lesion appears to be in the range of 70-80%. The mid left circumflex is diffusely diseased up to about 50%. Gives rises into second OM which has a plaque appears to be in the range of 80-90%. The left circumflex distally appears to have mild disease only. The left anterior descending artery: The proximal LAD appeared to have mild disease only. It gives rises into the first diagonal branch which has ostial lesion appeared to be in the range of 50%. The mid LAD has a tubular lesion appears to be in the range of 60-70%. The very distal LAD has a critical lesion but that by the apex. HEMODYNAMICS: The LVEDP was about 12 mmHg without significant gradient across aortic valve. CONCLUSION: 1. Chronic total occlusion of the RCA which fills by collateral from the left coronary system. The chronic total occlusion is on long segment 2. Severe coronary artery disease involving OM1 as well as OM 2 of the left circumflex 3. Intermediate to severe disease involving the mid left anterior descending artery. POSTPROCEDURE MANAGEMENT: #1 giving the above anatomy, I did recommended maximize medical treatment at this point #2 follow-up with the patient
--- NOTE | 2019-01-19 16:53 | PCN ---
PROCEDURE NOTE DATE OF SERVICE: 01/19/2019 PERFORMING PHYSICIAN: Devin Novak MD, explosive expert. PROCEDURES PERFORMED: 1. Intravascular ultrasound (IVUS) of bilateral common iliac veins, external iliac veins, as well as common femoral veins. 2. Successful stenting of the right and left iliac veins using 18 x 19 mm Wallstent with excellent results. INDICATION: This is a 63-year-old gentleman with history of bilateral lower extremity edema which has gotten worse in spite of diuretics. We did on the patient in the past intravascular ultrasound of bilateral iliac veins which showed severe stenosis at the level of the external iliac veins as well as common iliac veins bilaterally. He was brought today for intervention. APPROACH: Right and left common femoral veins. COMPLICATIONS: None. LEVEL OF SEDATION: Moderate, with sedation length of 90 minutes. PROCEDURE DESCRIPTION: After obtaining informed consent, the patient was brought to the cardiac cardiac catheterization technician. The right and left common femoral veins were cannulated using micropuncture technique under ultrasound guidance. The micropuncture wire passed easily. Then I placed a 10-Israeli sheath on each side. At that point, anticoagulation was initiated using heparin and the patient was given weight-based heparin. After that, I did wire both iliac veins using 0.035 wire where with the wire was advanced all the way to the inferior vena cava. After that, I did intravascular ultrasound (IVUS) of both sides. Subsequently I did intervene on both sides as well. The procedure was completed without any complication. INTRAVASCULAR ULTRASOUND: The intravascular ultrasound was performed through the right and left common femoral vein sheaths. On the right side, the right common iliac vein area was 78 mm. Post stenting it went up to 135 mm. The right external iliac vein area was 69 mm, which went up to 140 mm after stenting. The right common femoral vein compressed by 85 mm. On the left side, the left common iliac vein was 81 mm which post stenting went up to 139 mm2. The left external iliac vein was 63 mm and went up to 136 mm post stenting. STENTING OF THE RIGHT AND LEFT COMMON ILIAC VEINS: I did balloon angioplasty initially using 18 x 90 mm balloon which was inflated under 4 atmospheres. After that I deployed on both sides 18 x 90 mm Wallstents where the stents were positioned under fluoroscopic guidance and deployed in a kissing technique. I post dilated the stent on the left side using the 16 mm balloon. The final results by IVUS were excellent. The procedure was completed without any complication. POST-PROCEDURE MANAGEMENT: 1. Dual anti-platelet therapy. 2. Risk factor modifications. 3. Follow up with the patient. LELE / SARAH: [id number] /
[2019-01-19 18:02] LABS: Glucose,Whole Blood 137 mg/dL (75-99)
[2019-01-19] MEDS ORDERED: glipiZIDE 10 MG TAB PO PRN (20:48)
[2019-01-19] MEDS ORDERED: traMADol 50 MG TAB PO PRN (20:48)
[2019-01-19] MEDS ORDERED: ATORVASTATIN 40 MG TAB PO SCH (21:00)
[2019-01-19] MEDS ORDERED: GABAPENTIN 300 MG CAP PO SCH (21:00)
[2019-01-19 21:04] LABS: Glucose,Whole Blood 196 mg/dL (75-99)
[2019-01-20 06:16] LABS: Anisocytosis Slight; Basophils # (A) 0.1 k/uL (0-0.2); Basophils % (A) 1 %; Eosinophils # (A) 0.1 k/uL (0-0.7); Eosinophils % (A) 1 %; HCT 42.7 % (39.0-53.0); HGB 14.8 gm/dL (13.0-17.5); Lymphocytes % (A) 12 %; MCH 31.5 pg (25.0-35.0); MCHC 34.6 g/dL (31.0-37.0); MCV 90.9 fL (80.0-100.0); Mean Platelet Volume 7.3; Monocytes # (A) 0.6 k/uL (0-1.0); Monocytes % (A) 7 %; Neutrophils # (A) 6.7 k/uL (1.3-7.7); Neutrophils % (A) 77 %; Platelet Count 219 k/uL (150-450); RDW 16.4 % (11.5-15.5); WBC 8.7 k/uL (3.8-10.6)
[2019-01-20 06:24] LABS: Calcium 9.3 mg/dL (8.4-10.2)
[2019-01-20 06:24] LABS: Glucose,Whole Blood 148 mg/dL (75-99)
--- NOTE | 2019-01-20 08:06 | DS ---
DISCHARGE SUMMARY ADMISSION DATE: January 19, 2019 DISCHARGE DATE: January 20, 2019 BRIEF HISTORY: This is a pleasant 63-year-old gentleman who underwent yesterday successful stenting of bilateral iliac veins along with also a heart catheterization. On followup with him today, he is asymptomatic. He is going to be discharged home on dual antiplatelet therapy as well as statin and I will follow up with the patient next week in the office. MMLELAND / IJN: [id number] /
[2019-01-20 08:20] VITALS: BP 115/67; PULSE 71; RESP 16; TEMP 97
[2019-01-20] MEDS ORDERED: NON FORMULARY DRUG (Potassium [Potassium] 99 MG) PO SCH (09:00)
[2019-01-20] MEDS ORDERED: NON FORMULARY DRUG (Empagliflozin [Jardiance] 25 MG) PO SCH (09:00)
[2019-01-20] MEDS ORDERED: CLOPIDOGREL 75 MG TAB PO SCH (09:00)
[2019-01-20] MEDS ORDERED: GABAPENTIN 300 MG CAP PO SCH (09:00)
[2019-01-20] MEDS ORDERED: CINNAMON PO SCH (09:00)
[2019-01-20] MEDS ORDERED: ASPIRIN 81 MG PO SCH (09:00)
[2019-01-26] MEDS ORDERED: NON FORMULARY DRUG (Dulaglutide [Trulicity] 1.5 MG) SQ SCH (09:00)
== END 2019-01-20 08:21 | disposition home or self-care (01) ==
LOC: CATHCVL 09:57 → 3SCARD 15:03 → CATHCVL 01-20 08:21
PROVIDERS: ATTEND Internal Medicine Interventional Cardiology
DX: I25.110 Atherosclerotic heart disease of native coronary artery with unstable angina pectoris (principal); I25.82 Chronic total occlusion of coronary artery; E11.51 Type 2 diabetes mellitus with diabetic peripheral angiopathy without gangrene; I10 Essential (primary) hypertension; Z72.0 Tobacco use; Z95.5 Presence of coronary angioplasty implant and graft; E78.5 Hyperlipidemia, unspecified; M10.9 Gout, unspecified; Z79.84 Long term (current) use of oral hypoglycemic drugs; Z79.02 Long term (current) use of antithrombotics/antiplatelets; Z79.82 Long term (current) use of aspirin; Z79.899 Other long term (current) drug therapy; Z88.0 Allergy status to penicillin; Z88.7 Allergy status to serum and vaccine
CPT/HCPCS: 93458; 37238; 37239; 85347; 37252; 37253; 80048; 85025; C1769 ×6; C1894 ×3; C1753; C1876; C1725; J2001; J3010; J1644; J1170; Q9967; J2250

== ENCOUNTER → 2019-03-19 | Outpatient (CLI) | payer MEDICARE, BC ==
[2019-03-19 16:49] LABS: Chol/HDL Ratio 3.74; LDL Cholesterol,Calculated 77.8 mg/dL (0.0-131.0); VLDL Calculation 40.2 mg/dL (5.00-40.00)
== END | disposition home or self-care (01) ==
LOC: LABWHC1 07:59
PROVIDERS: ATTEND Nurse Practitioner Adult Health
DX: E78.5 Hyperlipidemia, unspecified (principal)
CPT/HCPCS: 36415; 80061

== ENCOUNTER 2019-04-15 08:00 | Inpatient (IN) | payer MEDICARE, BC ==
[2019-05-16] MEDS ORDERED: PROPOFOL 1,000 MG/100 ML VIAL IV ONE (05:00)
[2019-05-16] MEDS ORDERED: ALBUMIN HUMAN 25% 50 ML IV ONE (05:00)
[2019-05-16] MEDS ORDERED: INSULIN REGULAR 100 UNIT in SODIUM CHLORIDE 0.9% 100 ML IV ONE (05:00)
[2019-05-16] MEDS ORDERED: PHENYLEPHRINE 40 MG in SODIUM CHLORIDE 0.9% 250 ML IV ONE (05:00)
[2019-05-16] MEDS ORDERED: NITROGLYCERIN-D5W PMX 25 MG/250 ML BTL IV ONE (05:00)
[2019-05-16] MEDS ORDERED: SODIUM CHLORIDE 0.9% 1,000 ML IV ONE (05:00)
[2019-05-16] MEDS ORDERED: HEPARIN SODIUM 1,000 UN/ML (10ML VL) IV ONE (05:00)
[2019-05-16] MEDS ORDERED: ceFAZolin 1,000 MG in SODIUM CHLORIDE 0.9% IRRIGATIO 1,000 ML IRRIGATION ONE (05:00)
[2019-05-16] MEDS ORDERED: HEPARIN SODIUM,PORCINE 5,000 UNIT in SODIUM CHLORIDE 0.9% 500 ML 500 ML IV ONE (05:00)
[2019-05-16] MEDS ORDERED: SODIUM BICARB 8.4% 50 ML SYR (1 MEQ/ML) IV ONE (05:00)
[2019-05-16] MEDS ORDERED: ATORVASTATIN 10 MG TAB PO ONE (05:00)
[2019-05-16] MEDS ORDERED: DEXTROSE 5% IN WATER 1,000 ML with POTASSIUM CHLORIDE 25 MEQ, SODIUM CHLORIDE 2.5MEQ/ML... IRRIGATION ONE ×6 (05:00)
[2019-05-16] MEDS ORDERED: MANNITOL 25% 12.5 GM/50 ML VIAL IV ONE (05:00)
[2019-05-16] MEDS ORDERED: CALCIUM CHLORIDE 100 MG/ML 10 ML SYRINGE IV ONE (05:00)
[2019-05-16] MEDS ORDERED: NITROGLYCERIN-D5W PMX 50 MG in DEXTROSE/WATER 1 250ML.BAG IV ONE (05:00)
[2019-05-16] MEDS ORDERED: DEXTROSE 5% IN WATER 1,000 ML with POTASSIUM CHLORIDE 110 MEQ, MAGNESIUM SULFATE 16 MEQ... IV ONE ×5 (05:00)
[2019-05-16] MEDS ORDERED: NOREPINEPHRINE 4 MG in SODIUM CHLORIDE 0.9% 250 ML IV ONE (05:00)
[2019-05-16] MEDS ORDERED: MAGNESIUM SULFATE MG 500 MG/ML IV ONE (05:00)
[2019-05-16] MEDS ORDERED: PROTAMINE SULFATE 250 MG in EMPTY BAG 1 BAG IV ONE (05:00)
[2019-05-16] MEDS ORDERED: METOPROLOL TARTRATE 12.5 MG TAB PO ONE (05:00)
[2019-05-16] MEDS ORDERED: CHLORHEXIDINE GLUCONATE 15 ML CUP MUCOUS MEM ONE (05:00)
[2019-05-16] MEDS ORDERED: ASPIRIN 325 MG TAB PO ONE (05:00)
[2019-05-16] MEDS ORDERED: TRANEXAMIC ACID 2,000 MG in SODIUM CHLORIDE 0.9% 80 ML IV ONE (05:00)
[2019-05-16] MEDS ORDERED: PAPAVERINE 360 MG in SODIUM CHLORIDE 0.9% 90 ML IV ONE (05:00)
[2019-05-16] MEDS ORDERED: LACTATED RINGERS 1,000 ML IV ONE (05:00)
[2019-05-16] MEDS ORDERED: ceFAZolin 2,000 MG in SODIUM CHLORIDE 0.9% 30 ML IVPB ONE ×4 (05:00)
[2019-05-16] MEDS ORDERED: CLEVIDIPINE BUTYRATE 25 MG in EMPTY BAG 1 BAG IV ONE (05:00)
[2019-05-16] MEDS ORDERED: PROTAMINE SULFATE 10 MG/ML 25 ML VIAL IV ONE ×2 (05:00→07:51)
[2019-05-16 06:09] LABS: Glucose,Whole Blood 111 mg/dL (75-99)
[2019-05-16] MEDS ORDERED: LIDOCAINE 1% INJ 10MG/ML (20 ML MDV) ONE (07:51)
[2019-05-16] MEDS ORDERED: TRANEXAMIC ACID 1,000 MG/10 ML VIAL ONE (07:51)
[2019-05-16] MEDS ORDERED: MAGNESIUM SULFATE 4 MEQ/ML 10ML VIAL ONE (07:51)
[2019-05-16] MEDS ORDERED: ELECTROLYTE-R (PH 7.4) 1,000 ML IV.SOLN IV ONE (07:51)
[2019-05-16] MEDS ORDERED: VECURONIUM 10 MG VIAL IV ONE (07:51)
[2019-05-16] MEDS ORDERED: SODIUM CHLORIDE 0.9% IRRIG 1,000 ML BTL IRRIGATION ONE (07:51)
[2019-05-16] MEDS ORDERED: PROPOFOL 10 MG/ML 20 ML VIAL IV ONE (07:51)
[2019-05-16] MEDS ORDERED: ALBUTEROL INHALER 60 PUFF/8 GM INHALER INHALATION ONE (07:51)
[2019-05-16] MEDS ORDERED: NITROGLYCERIN-D5W PMX 50 MG/250 ML BOTTLE IV ONE (07:51)
[2019-05-16] MEDS ORDERED: MIDAZOLAM 2 MG/2 ML VIAL ONE (07:51)
[2019-05-16] MEDS ORDERED: HEPARIN SODIUM,PORCINE 10,000 UNIT/ML 1 ML VIAL ONE (07:51)
[2019-05-16] MEDS ORDERED: fentaNYL (PF) 50 MCG/ML 50 ML VIAL ONE (07:51)
[2019-05-16] MEDS ORDERED: ALBUMIN HUMAN 5% (25gm) 500 ML VIAL IVPB ONE (07:51)
[2019-05-16] MEDS ORDERED: SODIUM CHLORIDE 0.9% 250 ML BAG ONE (07:51)
[2019-05-16] MEDS ORDERED: PHENYLEPHRINE-0.9% NACL SYG 1 MG/10 ML SYRINGE ONE (07:51)
[2019-05-16] MEDS ORDERED: GLYCOPYRROLATE 0.2 MG/ML 2 ML VIAL ONE (07:51)
[2019-05-16] MEDS ORDERED: fentaNYL (PF) 50 MCG/ML 2 ML AMP ONE (07:51)
[2019-05-16 08:55] LABS: ABG Base Excess -0.8 mmol/L; ABG Glucose Whole Blood 92 mg/dL (75-99); ABG HCO3 25 mmol/L (21-25); ABG Hematocrit 41 % (34.0-46.0); ABG Ionized Calcium 4.8 mg/dL (4.5-5.3); ABG Lactic Acid Whole Blood 1.3 mmol/L (0.5-1.6); ABG PCO2 44 mmHg (35-45); ABG PH 7.36 (7.35-7.45); ABG PO2 377 mmHg (83-108); ABG Potassium Whole Blood 3.9 mmol/L (3.4-4.5); ABG Sodium Whole Blood 138 mmol/L (135-146); ABG TCO2 26 mmol/L (19-24)
[2019-05-16 11:26] LABS: ABG Base Excess -1.9 mmol/L; ABG Glucose Whole Blood 153 mg/dL (75-99); ABG HCO3 25 mmol/L (21-25); ABG Hematocrit 37 % (34.0-46.0); ABG Ionized Calcium 4.8 mg/dL (4.5-5.3); ABG Lactic Acid Whole Blood 0.8 mmol/L (0.5-1.6); ABG Oxygen Saturation 98.8 % (94-97); ABG PCO2 50 mmHg (35-45); ABG PH 7.31 (7.35-7.45); ABG PO2 120 mmHg (83-108); ABG Potassium Whole Blood 3.9 mmol/L (3.4-4.5); ABG Sodium Whole Blood 138 mmol/L (135-146); ABG TCO2 27 mmol/L (19-24)
[2019-05-16 12:19] LABS: ABG Base Excess -1.2 mmol/L; ABG Glucose Whole Blood 138 mg/dL (75-99); ABG HCO3 24 mmol/L (21-25); ABG Hematocrit 35 % (34.0-46.0); ABG Ionized Calcium 4.6 mg/dL (4.5-5.3); ABG Lactic Acid Whole Blood 0.6 mmol/L (0.5-1.6); ABG Oxygen Saturation 99.1 % (94-97); ABG PCO2 42 mmHg (35-45); ABG PH 7.37 (7.35-7.45); ABG PO2 128 mmHg (83-108); ABG Potassium Whole Blood 3.7 mmol/L (3.4-4.5); ABG Sodium Whole Blood 138 mmol/L (135-146); ABG TCO2 25 mmol/L (19-24)
[2019-05-16 12:39] LABS: ABG Base Excess -1.7 mmol/L; ABG Glucose Whole Blood 166 mg/dL (75-99); ABG HCO3 23 mmol/L (21-25); ABG Hematocrit 30 % (34.0-46.0); ABG Ionized Calcium 4.2 mg/dL (4.5-5.3); ABG Lactic Acid Whole Blood 0.6 mmol/L (0.5-1.6); ABG PCO2 39 mmHg (35-45); ABG PH 7.39 (7.35-7.45); ABG Potassium Whole Blood 4.5 mmol/L (3.4-4.5); ABG Sodium Whole Blood 133 mmol/L (135-146); ABG TCO2 24 mmol/L (19-24)
[2019-05-16 13:32] LABS: ABG Base Excess -2.2 mmol/L; ABG Glucose Whole Blood 232 mg/dL (75-99); ABG HCO3 24 mmol/L (21-25); ABG Hematocrit 30 % (34.0-46.0); ABG Ionized Calcium 4.3 mg/dL (4.5-5.3); ABG Lactic Acid Whole Blood 1.1 mmol/L (0.5-1.6); ABG Oxygen Saturation 99.6 % (94-97); ABG PCO2 46 mmHg (35-45); ABG PH 7.32 (7.35-7.45); ABG PO2 178 mmHg (83-108); ABG Potassium Whole Blood 4.5 mmol/L (3.4-4.5); ABG Sodium Whole Blood 134 mmol/L (135-146); ABG TCO2 25 mmol/L (19-24)
[2019-05-16 14:03] LABS: ABG Base Excess -3.2 mmol/L; ABG Glucose Whole Blood 233 mg/dL (75-99); ABG HCO3 23 mmol/L (21-25); ABG Hematocrit 30 % (34.0-46.0); ABG Ionized Calcium 4.3 mg/dL (4.5-5.3); ABG Lactic Acid Whole Blood 1.6 mmol/L (0.5-1.6); ABG PCO2 43 mmHg (35-45); ABG PH 7.33 (7.35-7.45); ABG PO2 311 mmHg (83-108); ABG Potassium Whole Blood 4.1 mmol/L (3.4-4.5); ABG Sodium Whole Blood 135 mmol/L (135-146); ABG TCO2 24 mmol/L (19-24)
[2019-05-16 14:31] LABS: ABG Base Excess -1.6 mmol/L; ABG Glucose Whole Blood 220 mg/dL (75-99); ABG HCO3 24 mmol/L (21-25); ABG Hematocrit 30 % (34.0-46.0); ABG Ionized Calcium 4.3 mg/dL (4.5-5.3); ABG Oxygen Saturation 99.9 % (94-97); ABG PCO2 46 mmHg (35-45); ABG PH 7.33 (7.35-7.45); ABG PO2 247 mmHg (83-108); ABG Potassium Whole Blood 4.1 mmol/L (3.4-4.5); ABG Sodium Whole Blood 137 mmol/L (135-146); ABG TCO2 26 mmol/L (19-24)
[2019-05-16 15:28] LABS: ABG PO2 >420 mmHg (83-108)
[2019-05-16 15:29] LABS: ABG Lactic Acid Whole Blood 2.4 mmol/L (0.5-1.6)
[2019-05-16 16:02] LABS: ABG Base Excess -3.3 mmol/L; ABG Glucose Whole Blood 146 mg/dL (75-99); ABG HCO3 23 mmol/L (21-25); ABG Hematocrit 32 % (34.0-46.0); ABG Ionized Calcium 4.6 mg/dL (4.5-5.3); ABG Oxygen Saturation 99.3 % (94-97); ABG PCO2 46 mmHg (35-45); ABG PH 7.31 (7.35-7.45); ABG PO2 171 mmHg (83-108); ABG Potassium Whole Blood 3.9 mmol/L (3.4-4.5); ABG Sodium Whole Blood 140 mmol/L (135-146); ABG TCO2 24 mmol/L (19-24)
[2019-05-16 16:06] LABS: ABG Lactic Acid Whole Blood 2.2 mmol/L (0.5-1.6)
[2019-05-16] MEDS ORDERED: IPRATROPIUM-ALBUTEROL 3 ML NEB INHALATION PRN (16:29)
[2019-05-16] MEDS ORDERED: MORPHINE SULFATE 2 MG/ML SYRINGE IVP PRN (16:29)
[2019-05-16] MEDS ORDERED: PROPOFOL 1,000 MG in EMPTY BAG 1 BAG IV SCH (16:29)
[2019-05-16] MEDS ORDERED: METOCLOPRAMIDE 5 MG/ML 2 ML VIAL IVP PRN (16:29)
[2019-05-16] MEDS ORDERED: Phosphorus Replacement Protoco 1 EACH MISC MISCELLANE PRN (16:29)
[2019-05-16] MEDS ORDERED: ONDANSETRON 4 MG/2 ML VIAL IVP PRN (16:29)
[2019-05-16] MEDS ORDERED: BENZOCAINE/MENTHOL LOZENG 1 EACH LOZENGE MUCOUS MEM PRN (16:29)
[2019-05-16] MEDS ORDERED: AMIODARONE 300 MG in DEXTROSE 5% IN WATER 250 ML IV PRN ×2 (16:29)
[2019-05-16] MEDS ORDERED: AMIODARONE 360 MG in DEXTROSE 5% IN WATER 200 ML IV PRN ×2 (16:29)
[2019-05-16] MEDS ORDERED: Magnesium Replacement Protocol 1 EACH MISC MISCELLANE PRN (16:29)
[2019-05-16] MEDS ORDERED: Potassium Replacement Protocol 1 EACH MISC MISCELLANE PRN (16:29)
[2019-05-16] MEDS ORDERED: CLEVIDIPINE BUTYRATE 25 MG in EMPTY BAG 1 BAG IV SCH (16:29)
[2019-05-16] MEDS ORDERED: NITROGLYCERIN-D5W PMX 50 MG in DEXTROSE/WATER 1 250ML.BAG IV SCH (16:29)
[2019-05-16] MEDS ORDERED: NOREPINEPHRINE 4 MG in SODIUM CHLORIDE 0.9% 250 ML IV SCH (16:29)
[2019-05-16] MEDS ORDERED: INSULIN REGULAR 100 UNIT in SODIUM CHLORIDE 0.9% 100 ML IV SCH (16:29)
[2019-05-16] MEDS ORDERED: DEXTROSE 5% IN WATER 100 ML with AMIODARONE 150 MG IV PRN (16:29)
[2019-05-16 17:13] LABS: Glucose,Whole Blood 94 mg/dL (75-99)
--- NOTE | 2019-05-16 17:25 | XR ---
EXAMINATION TYPE: XR chest 1V portable DATE OF EXAM: 05/16/2019 COMPARISON: 05/10/2019 HISTORY: Postop cardiac surgery TECHNIQUE: FINDINGS: Endotracheal tube is 3 cm from the mikey. There are sternal wires. There is right jugular catheter w ith the tip in the right pulmonary artery. There is nasogastric tube in the stomach. There is a drain age catheter over the left cardiac border. There is no heart failure. There is some blunting of the c ostophrenic angles. Thoracic aorta is atheromatous. IMPRESSION: Small pleural effusions. No heart failure seen.
[2019-05-16 17:28] LABS: ABG Base Excess -0.6 mmol/L; ABG HCO3 25 mmol/L (21-25); ABG PCO2 43 mmHg (35-45); ABG PH 7.37 (7.35-7.45); ABG PO2 230 mmHg (83-108); ABG TCO2 26 mmol/L (19-24); Allen Test Performed? Yes
[2019-05-16 18:06] LABS: Glucose,Whole Blood 70 mg/dL (75-99)
[2019-05-16 18:07] LABS: Basophils # (A) 0.1 k/uL (0-0.2); Basophils % (A) 1 %; Eosinophils % (A) 0 %; HCT 32.3 % (39.0-53.0); Lymphocytes # (A) 0.5 k/uL (1.0-4.8); Lymphocytes % (A) 4 %; MCH 30.5 pg (25.0-35.0); MCHC 34.4 g/dL (31.0-37.0); MCV 88.8 fL (80.0-100.0); Mean Platelet Volume 8.4; Monocytes # (A) 0.7 k/uL (0-1.0); Monocytes % (A) 6 %; Neutrophils # (A) 10.3 k/uL (1.3-7.7); Neutrophils % (A) 88 %; Platelet Count 119 k/uL (150-450); RBC 3.63 m/uL (4.30-5.90); RDW 14.2 % (11.5-15.5); WBC 11.7 k/uL (3.8-10.6)
[2019-05-16] MEDS: ACETAMINOPHEN IV (For NPO) 1,000 MG in EMPTY BAG 1 BAG IVPB SCH (18:08)
[2019-05-16 18:09] LABS: Ionized Calcium 4.9 mg/dL (4.5-5.3)
[2019-05-16 18:13] LABS: HGB 11.1 gm/dL (13.0-17.5)
[2019-05-16] MEDS ORDERED: DEXTROSE/WATER 1 250ML.BAG with DOPamine DRIP 800 MG IV SCH (18:15)
[2019-05-16 18:16] LABS: INR 1.3 (<1.2); Prothrombin Time 12.9 sec (9.0-12.0)
[2019-05-16 18:27] LABS: Albumin 3.4 g/dL (3.5-5.0); Calcium 8.5 mg/dL (8.4-10.2); Magnesium 2.9 mg/dL (1.6-2.3); Potassium 4.2 mmol/L (3.5-5.1); Total Bilirubin 1.7 mg/dL (0.2-1.3); Total Protein 5.3 g/dL (6.3-8.2)
[2019-05-16] MEDS: IPRATROPIUM-ALBUTEROL 3 ML NEB INHALATION SCH (18:58)
[2019-05-16 19:00] LABS: Glucose,Whole Blood 89 mg/dL (75-99)
[2019-05-16] MEDS ORDERED: DEXMEDETOMIDINE/0.9% NACL(PMX) 400 MCG in EMPTY BAG 1 BAG IV SCH (19:00)
[2019-05-16 19:59] LABS: Glucose,Whole Blood 138 mg/dL (75-99)
[2019-05-16] MEDS ORDERED: IPRATROPIUM-ALBUTEROL 3 ML NEB INHALATION SCH (20:00)
--- NOTE | 2019-05-16 20:08 | OP ---
OPERATIVE REPORT DATE OF SURGERY: 05/16/2019. SURGEON: Dr. Elyssa Jade. ASSISTANTS: 1. Fortino Bell, Nurse Practitioner. 2. GAGAN Mercado. PREOPERATIVE DIAGNOSES: Triple-vessel coronary artery disease with a totally occluded right coronary artery, preserved left ventricular function, history of stroke with left vertebral artery stenosis, single kidney, tobacco abuse, diabetes mellitus, hypertension, status post recent stenting for bilateral iliac veins for May-Thurner syndrome. POSTOPERATIVE DIAGNOSES: Triple-vessel coronary artery disease with a totally occluded right coronary artery, preserved left ventricular function, history of stroke with left vertebral artery stenosis, single kidney, tobacco abuse, diabetes mellitus, hypertension, status post recent stenting for bilateral iliac veins for May-Thurner syndrome with diffuse coronary artery disease. PROCEDURES: 1. Quadruple coronary artery bypass grafting using the left internal mammary artery to the left anterior descending artery, the left radial artery from the aorta to the first obtuse marginal artery, reverse saphenous vein graft from the aorta to the second obtuse marginal artery, reverse saphenous vein graft from the aorta to the totally occluded right coronary artery system. 2. Endoscopic harvesting of the left radial artery. 3. Endoscopic harvesting of left greater saphenous vein. 4. Intraoperative transesophageal echocardiogram and epiaortic scanning. 5. Intraoperative graft flow measurements using the [employer] system. INDICATION FOR SURGERY: Patient is a 63-year-old gentleman who underwent in December 2018 bilateral iliac vein stenting for May-Thurner syndrome. The patient also had complaints of chest pressure and shortness of breath and underwent cardiac catheterization that showed evidence of a totally occluded right coronary artery that had been stented around 8 years ago as well as significant proximal disease of the LAD and the circumflex system. His 2D echo showed overall preserved left ventricular function. The patient was asked to stop smoking for 4 to 6 weeks, as he was a heavy smoker, and as well around 3 months of dual antiaggregant therapy from his iliac vein stenting before elective surgery today. The STS risk score was discussed with him and he understood it and agreed to proceed. DESCRIPTION OF THE PROCEDURE: Patient in the preoperative holding area, right internal jugular [place]-Erika catheter and a right radial arterial line were placed. His PA pressure was 30/14 and his cardiac index was 3.1. Subsequently the patient was brought to the operating room, where general endotracheal anesthesia was induced uneventfully. A [place] catheter was inserted. The patient received 2 grams of cefazolin intravenously. The chest, abdomen and both lower extremities as well as the left upper extremity were prepped and draped using ChloraPrep. Ioban was used to cover the skin. Transesophageal echocardiogram confirmed the preoperative finding of preserved left ventricular function and no significant valvular abnormality. There was mild mitral valve regurgitation. Midline sternotomy was performed and the bone was relatively mildly osteopenic. The left hemisternum was elevated and left internal mammary artery was harvested in a semi- skeletonized fashion. The left pleura was intentionally opened in this process and was drained with a 19-Kittitian Mickey drain. The right pleura remained grossly intact. In the same setting, the left radial artery was harvested endoscopically after initially exposing it at the wrist and performing a clamping trial that revealed preserved pulsatile O2 saturation signal. The branches were clipped. The forearm was closed over drain. Also in the same setting, the left greater saphenous vein was harvested between groin and mid lower level. The branches were tied. The leg incisions were closed over a drain. This was done after administration of 2000 units of heparin for a baseline ACT of 153. Mediastinal fat was transected between 2 ties and epiaortic scanning revealed concentric intimal thickening but no protruding atheroma in the ascending aorta. Pericardium was opened in an inverted T-fashion. Pericardial cradle was created. Findings included a normal soft aorta and a fatty heart. After systemic heparinization, after placement of respective pledgeted pursestrings, aortic cannulation with a 21-Kittitian Soft flow cannula and venous cannulation via the right atrial appendage was performed. Antegrade as well as retrograde cardioplegia catheters were placed. All the conduits were prepared. The radial artery was around 2 mm in diameter. The vein was around 4 mm in diameter, good quality. The left internal mammary artery was clipped distally and transected and had an excellent pulsatile flow in it and was around 2 mm in diameter. Cardiopulmonary bypass was initiated with the patient's temperature allowing to drift down to 34 degrees Celsius, we looked at the target on an empty beating heart. The LAD was intramyocardial but emerged in its mid aspect as seen on catheterization and that would be the site for bypass. The first obtuse marginal artery was intramyocardial and we could see where it dives into the myocardium. The second obtuse marginal artery found distally was of small to moderate caliber. The right coronary artery was calcified and we found a spot deep in the AV groove for potential bypass. The aorta was clamped and during aortic clamping myocardial protection was achieved with initial dose of antegrade cold blood cardioplegia of around 1 L followed by 400 mL of retrograde cold blood cardioplegia. All subsequent doses were given retrograde as well as via the initially constructed vein graft to the right coronary artery to achieve optimal right ventricular protection. The first distal anastomosis was between a good segment of reverse saphenous vein graft and the right coronary artery which was opened, was around 2 mm in diameter, thickened, using Prolene 7-0 in continuous fashion. This vein was connected to the Y arm on the retrograde cardioplegia delivery system. The second distal anastomosis was between another segment of vein and the 1.25 mm thin-walled second obtuse marginal artery. That artery was opened and I used a 1 mm shunt to better define its edges and completed the anastomosis using Prolene 7-0 and the shunt was evidently removed before tying the anastomosis. The third distal anastomosis was between the radial artery and the first obtuse marginal artery, which was followed in its intramyocardial course and was soft, as predicted, at that level, was around 1.7 mm in diameter, using Prolene 7-0 in continuous fashion. The fourth and last distal anastomosis was between the left internal mammary artery that passed in the deep groove in the left pleuropericardial fat and the mid aspect of the left anterior descending artery which was opened, was around 1.75 mm in diameter, mildly thickened, using Prolene 7-0 in continuous fashion. The mammary pedicle was affixed to the epicardium with Prolene 6-0 sutures. Satisfied with the distal anastomosis, rewarming was started. We punched out 3 buttons of 4 mm each of the ascending aorta, and the three proximal anastomoses of the 2 veins and the radial artery were performed. The patient was given lidocaine and magnesium. De-airing maneuvers were done. Aortic clamp was removed and perfusion reestablished. Two monopolar atrial pacing wires were affixed to the right atrial pursestrings. One ventricular pacing wire was driven via the inferior aspect of the right ventricle. The patient regained spontaneous sinus rhythm but was in sinus bradycardia. FloSeal was applied over the anastomosis. Preliminary graft flow measurements revealed patent graft. At this point, and after around 15-20 minutes of reperfusion, we weaned off cardiopulmonary bypass with a need of low-dose of Levophed and required atrial pacing at 80 in view of sinus bradycardia. Cardiac index at this point was 2.7, and the echo showed good LV function. The [employer] system was used to measure flows into the graft. The flow into the vein going to the right coronary artery was 20 mL/minute, pulsatility index of 3.5, diastolic filling of 60%. The flow into the vein going to the second obtuse marginal artery was 23 mL/minute, pulsatility index of 4.7, diastolic filling of 62%. The flow into the radial artery to the first obtuse marginal artery was 37 mL/minute, pulsatility index of 1.5, diastolic filling of 63% with no evidence of competitive flow. The flow into the mammary artery going to the left anterior descending artery was 22 mL/minute, pulsatility index of 3.3 and diastolic filling of 73%. All the parameters were judged to be very satisfactory. With that, test-dose then full-dose protamine was given. Decannulation followed. Two 19-Kittitian Mickey drains were placed substernally. Pericardial fat was approximated over the aorta and the grafts. After ensuring adequate hemostasis and hemodynamics and after correct sponge, instrument and needle counts, the sternum was closed using 5 [id number] [place] cable after interposing Fibrillar between the sternal edges. Thorough irrigation with cefazolin followed. The rest of the closure proceeded in layers. Skin glue was applied. Patient did not receive any blood bank product but received 450 mL of Cell Saver blood. He was transferred to the ICU in stable condition, atrially paced at 80 with good conduction, mean artery pressure of 73 on low-dose Levophed, PA pressure of 29/13, and cardiac index of 2.8 upon chest closure. MMODL / IJN: [id number] /
[2019-05-16 20:15] LABS: Basophils # (A) 0.1 k/uL (0-0.2); Basophils % (A) 1 %; Eosinophils # (A) 0.1 k/uL (0-0.7); Eosinophils % (A) 1 %; HCT 31.9 % (39.0-53.0); HGB 10.9 gm/dL (13.0-17.5); Lymphocytes # (A) 0.3 k/uL (1.0-4.8); Lymphocytes % (A) 3 %; MCH 30.1 pg (25.0-35.0); MCHC 34.1 g/dL (31.0-37.0); MCV 88.4 fL (80.0-100.0); Mean Platelet Volume 8.3; Monocytes # (A) 0.5 k/uL (0-1.0); Monocytes % (A) 6 %; Neutrophils # (A) 8.1 k/uL (1.3-7.7); Neutrophils % (A) 89 %; Platelet Count 106 k/uL (150-450); RBC 3.61 m/uL (4.30-5.90); RDW 14.1 % (11.5-15.5); WBC 9.1 k/uL (3.8-10.6)
[2019-05-16] MEDS ORDERED: MUPIROCIN 2% OINT 22 GM TUBE NASAL ONE (20:45)
[2019-05-16 21:09] LABS: Glucose,Whole Blood 142 mg/dL (75-99)
[2019-05-16 21:56] LABS: Glucose,Whole Blood 135 mg/dL (75-99)
[2019-05-16] MEDS: GABAPENTIN 300 MG CAP PO SCH (22:45)
[2019-05-16 22:58] LABS: Glucose,Whole Blood 101 mg/dL (75-99)
[2019-05-16 23:54] LABS: Glucose,Whole Blood 121 mg/dL (75-99)
[2019-05-17] MEDS: ACETAMINOPHEN IV (For NPO) 1,000 MG in EMPTY BAG 1 BAG IVPB SCH (00:09)
[2019-05-17] MEDS: HEPARIN SODIUM,PORCINE 5,000 UNIT/ML 1 ML VIAL SQ SCH ×3 (00:19→15:31)
[2019-05-17 00:34] LABS: Basophils # (A) 0.1 k/uL (0-0.2); Basophils % (A) 1 %; Eosinophils # (A) 0.1 k/uL (0-0.7); Eosinophils % (A) 0 %; HCT 31.7 % (39.0-53.0); HGB 11.2 gm/dL (13.0-17.5); Lymphocytes # (A) 0.3 k/uL (1.0-4.8); Lymphocytes % (A) 3 %; MCHC 35.2 g/dL (31.0-37.0); MCV 88.1 fL (80.0-100.0); Mean Platelet Volume 8.5; Monocytes # (A) 0.4 k/uL (0-1.0); Monocytes % (A) 4 %; Neutrophils # (A) 9.5 k/uL (1.3-7.7); Neutrophils % (A) 92 %; Platelet Count 106 k/uL (150-450); RDW 14.2 % (11.5-15.5); WBC 10.4 k/uL (3.8-10.6)
[2019-05-17 01:04] LABS: Glucose,Whole Blood 137 mg/dL (75-99)
[2019-05-17 02:05] LABS: Glucose,Whole Blood 127 mg/dL (75-99)
[2019-05-17] MEDS: ALBUMIN HUMAN 5% 250 ML in EMPTY BAG 1 BAG IVPB PRN ×2 (02:27→06:58)
[2019-05-17 03:08] LABS: Glucose,Whole Blood 119 mg/dL (75-99)
[2019-05-17 04:07] LABS: Glucose,Whole Blood 135 mg/dL (75-99)
[2019-05-17] MEDS ORDERED: HYDROcodone/APAP 5-325MG 1 EACH TAB PO PRN ×2 (04:17)
[2019-05-17 04:25] LABS: Ionized Calcium 4.9 mg/dL (4.5-5.3)
[2019-05-17 04:35] LABS: Albumin 3.5 g/dL (3.5-5.0); Calcium 8.2 mg/dL (8.4-10.2); Magnesium 2.4 mg/dL (1.6-2.3); Potassium 5.3 mmol/L (3.5-5.1); Total Bilirubin 0.9 mg/dL (0.2-1.3); Total Protein 5.5 g/dL (6.3-8.2)
[2019-05-17 05:01] LABS: Glucose,Whole Blood 119 mg/dL (75-99)
[2019-05-17 05:16] LABS: Basophils % (A) 0 %; Eosinophils % (A) 0 %; HCT 29.8 % (39.0-53.0); HGB 10.3 gm/dL (13.0-17.5); Lymphocytes # (A) 0.4 k/uL (1.0-4.8); Lymphocytes % (A) 4 %; MCH 30.9 pg (25.0-35.0); MCHC 34.7 g/dL (31.0-37.0); MCV 89.1 fL (80.0-100.0); Mean Platelet Volume 8.9; Monocytes # (A) 0.4 k/uL (0-1.0); Monocytes % (A) 4 %; Neutrophils # (A) 9.1 k/uL (1.3-7.7); Neutrophils % (A) 91 %; Platelet Count 101 k/uL (150-450); RBC 3.34 m/uL (4.30-5.90); RDW 14.2 % (11.5-15.5)
[2019-05-17 06:10] LABS: Glucose,Whole Blood 123 mg/dL (75-99)
[2019-05-17] MEDS ORDERED: fentaNYL (PF) 50 MCG/ML 2 ML AMP IVP ONE (07:00)
[2019-05-17] MEDS: IPRATROPIUM-ALBUTEROL 3 ML NEB INHALATION SCH ×4 (07:06→19:52)
[2019-05-17 07:21] LABS: Glucose,Whole Blood 136 mg/dL (75-99)
--- NOTE | 2019-05-17 08:20 | XR ---
EXAMINATION TYPE: XR chest 1V portable DATE OF EXAM: 05/17/2019 COMPARISON: Prior chest x-ray 05/16/2019 HISTORY: Postop cardiac surgery TECHNIQUE: Single frontal view of the chest is obtained. FINDINGS: Patient is post median sternotomy. Right jugular central venous sheath and coaxial Benson-Ga nz catheter present with the distal tip over the pulmonary artery. Left-sided chest tube remains in p lace. Endotracheal and NG tube have been removed. Bibasilar increased density is again seen. Heart re filiberto enlarged. Interstitium mildly increased. There are overlying artifacts, cardiac leads. No sizab le pneumothorax. Median sternal drain is present. Aorta is dense. IMPRESSION: Basilar atelectasis and possible associated effusions. Cardiomegaly. Interval extubation . There may be a component of volume overload.
[2019-05-17] MEDS: CLOPIDOGREL 75 MG TAB PO SCH (08:31)
[2019-05-17] MEDS: GABAPENTIN 300 MG CAP PO SCH ×2 (08:31→20:51)
[2019-05-17] MEDS: ATORVASTATIN 40 MG TAB PO SCH (08:31)
[2019-05-17] MEDS: ASPIRIN 325 MG TAB PO SCH (08:31)
[2019-05-17] MEDS: METOPROLOL TARTRATE 12.5 MG TAB PO SCH ×2 (08:31→20:51)
[2019-05-17] MEDS: FLUTICASONE 50MCG/SPRAY NASAL 16GM EA NOSTRIL SCH (08:32)
--- NOTE | 2019-05-17 08:32 | CONS ---
CONSULTATION PULMONARY/CRITICAL CARE CONSULTATION: DATE OF CONSULTATION: May 17, 2019 This is a 63-year-old gentleman who is postop day #1 status post 4-vessel bypass grafting by Dr. Jade. He was admitted yesterday. He was extubated 6 hours and 45 minutes from the ventilator after leaving the operating room. Currently, the patient is on O2 at 2 L. His IV is saline at 50 mL an hour. He is getting a nitroglycerin drip of 5 mcg/hour and insulin drip at 1 unit/hour. Actually, I did a preop clearance on this patient. This is a patient who I saw for preop clearance on April 22. He has a history of hyperlipidemia, diabetes, hypertension, CAD, TIA, BPH, and diabetic small-vessel disease. He also has a history of kidney cancer. The patient had excellent lung function even though he did smoke a pack a day for 40 years. He quit March 2019. The patient currently is resting comfortably. Other than for some pain at the surgical site, he has no major issues or problems. ALLERGIES: His allergies include PENICILLIN, CODEINE, and METFORMIN. HOME MEDICATIONS: His home medications included pioglitazone, gabapentin, Plavix, glipizide, Flomax, potassium chloride, metoprolol, Zestril, Imdur, Flonase nasal spray, Lasix, Lipitor, Ultram, Jardiance and Trulicity. SURGICAL HISTORY: Surgical history included excision of left kidney, tonsillectomy, and surgery on his intestines. FAMILY HISTORY: Positive for a father with emphysema. SOCIAL HISTORY: Otherwise negative for alcohol or illicit drug use. MEDICAL HISTORY: Medical history includes kidney cancer, diabetes mellitus, hyperlipidemia, hypertension, CAD, TIA, BPH, and diabetic small vessel disease. REVIEW OF SYSTEMS: CONSTITUTIONAL: Negative. NEUROLOGIC: Negative. HEENT: Negative. CARDIOVASCULAR: Status post 4-vessel bypass grafting. PULMONARY: Negative. GI: Negative. : Negative. RHEUMATOLOGIC: Negative. IMMUNOLOGIC: Negative. ENDOCRINOLOGIC: Negative. DERMATOLOGIC: Negative. PHYSICAL EXAMINATION: VITAL SIGNS: Current vital signs are reviewed. Temperature is 98.6, heart rate 81, respiratory rate 21, blood pressure 97/47, saturations are 95% on 2 L. Pulmonary artery pressure is 16/4 and central venous pressure is 2. GENERAL: Appears in no acute distress. HEENT: Examination is grossly unremarkable. Mucous membranes are moist. Nasal O2 in place. NECK: Supple. Full range of motion. No adenopathy or thyromegaly. Neck veins are flat. CARDIOVASCULAR: Examination reveals regular rhythm and rate. S1, S2 normal. No S3, S4, or murmur. LUNGS: Clear. Breath sounds equal. He could not take deep breaths. ABDOMEN: Soft. Bowel sounds are intact. EXTREMITIES: Are intact. No cyanosis, clubbing, or edema. SKIN: Without rash. NEUROLOGIC: Examination is brief but nonfocal. The patient did have a 6 minute walk distance and a PFTs in the office. Everything turned out very well and I did let Dr. Jade know before the surgery. LABS: Labs are reviewed. White count is 10.0, hemoglobin 10.3, hematocrit 29.8, platelet count a 101,000. PT, INR was 12.9 and 1.3. PTT was normal. Most recent blood gases show pO2 of 230, pCO2 43, pH 7.37. The patient's sodium was 136, potassium 5.3, chloride 108, CO2 of 22. Anion gap is 6. BUN and creatinine were 23 and 1.32. The rest of the labs look okay. Albumin was 3.5. MEDICATIONS: Medications are reviewed. Chest x-ray shows typical postoperative changes. There is some basilar atelectasis or infiltrate. There may be small effusions. PA catheter looks to be in good placement. ASSESSMENT: 1. Postoperative day #1 status post 4-vessel bypass grafting. 2. Routine postoperative ventilator management with extubation in a bit less than 7 hours. 3. History of coronary artery disease. 4. Diabetes mellitus. 5. History of hypertension. 6. History of hyperlipidemia. 7. History of kidney cancer status post nephrectomy. 8. History of diabetic small-vessel disease. 9. History of benign prostatic hypertrophy. 10.History of transient ischemic attack. PLAN: The patient is doing well. We will continue to follow. We encourage deep breathing, coughing, clearing of secretions. We want him to use the incentive spirometer every 1 hour while awake. We will continue on breathing treatments. His preop PFTs and 6 minute walk distance was excellent. Additional recommendations and suggestions are forthcoming. Prognosis is guarded. He remains on a small dose of nitroglycerin at 5 mcg and a small dose of insulin at 1 unit/hour. Additional recommendations and suggestions are forthcoming. MMODL / IJN: [id number] /
--- NOTE | 2019-05-17 08:34 | P.PN ---
Subjective Progress Note Date: 05/17/19 Principal diagnosis: Diffuse triple vessel coronary artery disease with totally occluded right coronary artery, preserved left ventricular function. 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 Endoscopic harvesting of the left radial artery. Endoscopic harvesting of the left greater saphenous vein from the groin to the mid lower level. Intraoperative t ransesophageal echocardiogram and epi-aortic scanning. Intraoperative graft flow measurements using the [employer] system. Postoperative acute blood loss anemia, expected outcome of surgery secondary to hemodilution and cardiopulmonary bypass pump Postoperative thrombocytopenia, expected outcome of surgery secondary to hemodilution The patient is currently sitting up in a recliner in no acute distress in the intensive care unit. He was successfully extubated yesterday at 23:43. He does complain of postoperative surgical type pain which he states is not controlled with current medication regimen, denies shortness of breath. Currently in normal sinus rhythm and hemodynamically stable on no inotropes or pressors. [place]/Cordis, mediastinal and left pleural chest tubes remain. CATRACHITA drains present to left radial artery harvest site and left EVH site. No other new concerns. Objective - Vital Signs Vital signs: Vital Signs Temp 98.6 F 05/17/19 04:00 Pulse 81 05/17/19 07:18 Resp 23 05/17/19 07:00 BP 99/71 05/17/19 02:00 Pulse Ox 94 L 05/17/19 07:00 Intake & Output 05/16/19 05/17/19 05/17/19 18:59 06:59 18:59 Intake Total 401 1444.279 101.67 Output Total 3005 1340 403 Balance -2604 104.279 -301.33 Weight 95.7 kg Intake: IV 401 1255.5 100.5 0.9 100 550 50 Albumin Human 5% 250 ml 250 250 In Empty Bag 1 bag @ 250 mls/hr IVPB Q1HR PRN Rx#: [id number] CO/CI 340 40 Nitroglycerine 16.5 1.5 Pressure Bags 18 99 9 Intake, IV Titration 188.779 1.17 Amount ACETAMINOPHEN IV (For NPO 100 ) 1,000 mg In Empty Bag 1 bag @ 400 mls/hr IVPB Q6HR RICKIE Rx#:[id number] Dexmedetomidine/0.9% NaCl 33.105 (Pmx) 400 mcg In Empty Bag 1 bag @ Titrate IV . Q0M RICKIE Rx#:[id number] Insulin Regular 100 unit 5.674 1.17 In Sodium Chloride 0.9% 100 ml @ Per Protocol IV .Q0M RICKIE Rx#:[id number] ceFAZolin 2 gm In Sodium 50 Chloride 0.9% 50 ml @ 100 mls/hr IVPB Q8HR RICKIE Rx# :[id number] Output: Chest Tube Drainage 550 80 Chest Tube Left 380 50 Chest Tube Mediastinal 170 30 Drainage 70 55 198 Left Arm 0 10 Left Chest 50 Left Thigh 0 45 198 Medial Chest 20 Urine 1435 735 125 Estimated Blood Loss 1500 Other: Voiding Method Indwelling Catheter Indwelling Catheter ABP, PAP, CO, CI - Last Documented Arterial Blood Pressure 81/41 Pulmonary Artery Pressure 16/4 Cardiac Output 5.9 Cardiac Index 2.9 - Constitutional General appearance: Present: cooperative, no acute distress, obese - Respiratory Details: Lungs sounds diminished bilaterally. Respirations even, nonlabored. Currently on 2 L nasal cannula with oxygen saturation 98%. Able to achieve 1000 mL on his incentive spirometry. Mediastinal chest tube to continuous wall suction, 110 mL serosanguineous drainage overnight, 400 mL since surgery. Left pleural chest tube to continuous wall suction, 300 mL serosanguineous drainage overnight, 850 mL since surgery. No air leaks present. - Cardiovascular Details: S1, S2 present. Regular rate and rhythm, sinus rhythm on telemetry. Sternum stable. A/V epicardial pacemaker wires present, connected to generator, set at AAI mode with backup rate 50 bpm. Palpable peripheral pulses bilaterally. Trace generalized edema present. No calf pain or tenderness noted. Right internal jugular [place]/Cordis, right brachial arterial line present. Last CO/CI 5.9/2.9 on no inotropes or pressors. Heart hugger in place with patient demonstrating appropriate use. Antiembolism stockings, SCDs present. - Gastrointestinal Gastrointestinal Comment(s): Abdomen soft, nontender, nondistended. Hypoactive bowel sounds present 4 quadrants. Tolerating clear liquids. Negative flatus - Genitourinary Genitourinary Comment(s): [place] present draining clear, yellow urine. Output 35-70 mL/h overnight. - Integumentary Integumentary Comment(s): Skin is warm and dry with evidence of good perfusion. Anterior chest incision well approximated and covered with dry intact dressing. Left radial artery harvest site wrapped with [place] wrap, CATRACHITA drain present with minimal serosanguineous drainage, patient able to move wiggle all fingers on his left hand, he does complain of some numbness and tingling, skin is slightly cool but pink and the same temperature as his right arm, he is able to ocularist objects. Left lower extremity EVH site well approximated, CATRACHITA drain present with 200 mL sanguinous fluid out this morning. - Neurologic Neurologic: Present: CNII-XII intact - Musculoskeletal Musculoskeletal: Present: strength equal bilaterally - Psychiatric Psychiatric: Present: A&O x's 3, appropriate affect, intact judgment & insight - Allied health notes Allied health notes reviewed: nursing - Labs CBC & Chem 7: 05/17/19 04:00 05/17/19 04:00 Labs: Abnormal Lab Results - Last 24 Hours (Table) 05/10/19 05/16/19 05/16/19 Range/Units 08:50 08:56 11:27 WBC (3.8-10.6) k/uL RBC (4.30-5.90) m/uL Hgb (13.0-17.5) gm/dL Hct (39.0-53.0) % Plt Count (150-450) k/uL Neutrophils # (1.3-7.7) k/uL Lymphocytes # (1.0-4.8) k/uL PT (9.0-12.0) sec INR (<1.2) ABG pH 7.31 L (7.35-7.45) ABG pCO2 50 H (35-45) mmHg ABG pO2 377 H 120 H (83-108) mmHg ABG Total CO2 26 H 27 H (19-24) mmol/L ABG O2 Saturation 100.0 H 98.8 H (94-97) % ABG Hematocrit (34.0-46.0) % ABG Sodium (135-146) mmol/L ABG Ionized Calcium (4.5-5.3) mg/dL ABG Glucose 153 H (75-99) mg/dL ABG Lactic Acid (0.5-1.6) mmol/L Hemoglobin 12.2 L (13.0-17.5) gm/dL Sodium (137-145) mmol/L Potassium (3.5-5.1) mmol/L Chloride (98-107) mmol/L BUN (9-20) mg/dL Creatinine (0.66-1.25) mg/dL Glucose (74-99) mg/dL POC Glucose (mg/dL) (75-99) mg/dL Calcium (8.4-10.2) mg/dL Magnesium (1.6-2.3) mg/dL Total Bilirubin (0.2-1.3) mg/dL Alkaline Phosphatase (38-126) U/L Total Protein (6.3-8.2) g/dL Albumin (3.5-5.0) g/dL Arterial Blood Glucose 153 H (75-99) mg/dL Crossmatch See Detail 05/16/19 05/16/19 05/16/19 Range/Units 12:20 12:40 13:33 WBC (3.8-10.6) k/uL RBC (4.30-5.90) m/uL Hgb (13.0-17.5) gm/dL Hct (39.0-53.0) % Plt Count (150-450) k/uL Neutrophils # (1.3-7.7) k/uL Lymphocytes # (1.0-4.8) k/uL PT (9.0-12.0) sec INR (<1.2) ABG pH 7.32 L (7.35-7.45) ABG pCO2 46 H (35-45) mmHg ABG pO2 128 H >420 H 178 H (83-108) mmHg ABG Total CO2 25 H 25 H (19-24) mmol/L ABG O2 Saturation 99.1 H 100.0 H 99.6 H (94-97) % ABG Hematocrit 30 L 30 L (34.0-46.0) % ABG Sodium 133 L 134 L (135-146) mmol/L ABG Ionized Calcium 4.2 L 4.3 L (4.5-5.3) mg/dL ABG Glucose 138 H 166 H 232 H (75-99) mg/dL ABG Lactic Acid (0.5-1.6) mmol/L Hemoglobin 11.4 L 9.6 L 9.9 L (13.0-17.5) gm/dL Sodium (137-145) mmol/L Potassium (3.5-5.1) mmol/L Chloride (98-107) mmol/L BUN (9-20) mg/dL Creatinine (0.66-1.25) mg/dL Glucose (74-99) mg/dL POC Glucose (mg/dL) (75-99) mg/dL Calcium (8.4-10.2) mg/dL Magnesium (1.6-2.3) mg/dL Total Bilirubin (0.2-1.3) mg/dL Alkaline Phosphatase (38-126) U/L Total Protein (6.3-8.2) g/dL Albumin (3.5-5.0) g/dL Arterial Blood Glucose 138 H 166 H 232 H (75-99) mg/dL Crossmatch 05/16/19 05/16/19 05/16/19 Range/Units 14:04 14:32 16:03 WBC (3.8-10.6) k/uL RBC (4.30-5.90) m/uL Hgb (13.0-17.5) gm/dL Hct (39.0-53.0) % Plt Count (150-450) k/uL Neutrophils # (1.3-7.7) k/uL Lymphocytes # (1.0-4.8) k/uL PT (9.0-12.0) sec INR (<1.2) ABG pH 7.33 L 7.33 L 7.31 L (7.35-7.45) ABG pCO2 46 H 46 H (35-45) mmHg ABG pO2 311 H 247 H 171 H (83-108) mmHg ABG Total CO2 26 H (19-24) mmol/L ABG O2 Saturation 100.0 H 99.9 H 99.3 H (94-97) % ABG Hematocrit 30 L 30 L 32 L (34.0-46.0) % ABG Sodium (135-146) mmol/L ABG Ionized Calcium 4.3 L 4.3 L (4.5-5.3) mg/dL ABG Glucose 233 H 220 H 146 H (75-99) mg/dL ABG Lactic Acid 2.4 H* 2.2 H* (0.5-1.6) mmol/L Hemoglobin 9.7 L 9.6 L 10.3 L (13.0-17.5) gm/dL Sodium (137-145) mmol/L Potassium (3.5-5.1) mmol/L Chloride (98-107) mmol/L BUN (9-20) mg/dL Creatinine (0.66-1.25) mg/dL Glucose (74-99) mg/dL POC Glucose (mg/dL) (75-99) mg/dL Calcium (8.4-10.2) mg/dL Magnesium (1.6-2.3) mg/dL Total Bilirubin (0.2-1.3) mg/dL Alkaline Phosphatase (38-126) U/L Total Protein (6.3-8.2) g/dL Albumin (3.5-5.0) g/dL Arterial Blood Glucose 233 H 220 H 146 H (75-99) mg/dL Crossmatch 05/16/19 05/16/19 05/16/19 Range/Units 17:00 17:00 17:00 WBC 11.7 H (3.8-10.6) k/uL RBC 3.63 L (4.30-5.90) m/uL Hgb 11.1 L D (13.0-17.5) gm/dL Hct 32.3 L (39.0-53.0) % Plt Count 119 L (150-450) k/uL Neutrophils # 10.3 H (1.3-7.7) k/uL Lymphocytes # 0.5 L (1.0-4.8) k/uL PT 12.9 H (9.0-12.0) sec INR 1.3 H (<1.2) ABG pH (7.35-7.45) ABG pCO2 (35-45) mmHg ABG pO2 (83-108) mmHg ABG Total CO2 (19-24) mmol/L ABG O2 Saturation (94-97) % ABG Hematocrit (34.0-46.0) % ABG Sodium (135-146) mmol/L ABG Ionized Calcium (4.5-5.3) mg/dL ABG Glucose (75-99) mg/dL ABG Lactic Acid (0.5-1.6) mmol/L Hemoglobin (13.0-17.5) gm/dL Sodium (137-145) mmol/L Potassium (3.5-5.1) mmol/L Chloride 108 H (98-107) mmol/L BUN (9-20) mg/dL Creatinine (0.66-1.25) mg/dL Glucose (74-99) mg/dL POC Glucose (mg/dL) (75-99) mg/dL Calcium (8.4-10.2) mg/dL Magnesium 2.9 H (1.6-2.3) mg/dL Total Bilirubin 1.7 H (0.2-1.3) mg/dL Alkaline Phosphatase 21 L (38-126) U/L Total Protein 5.3 L (6.3-8.2) g/dL Albumin 3.4 L (3.5-5.0) g/dL Arterial Blood Glucose (75-99) mg/dL Crossmatch 05/16/19 05/16/19 05/16/19 Range/Units 17:25 18:05 19:56 WBC (3.8-10.6) k/uL RBC 3.61 L (4.30-5.90) m/uL Hgb 10.9 L (13.0-17.5) gm/dL Hct 31.9 L (39.0-53.0) % Plt Count 106 L (150-450) k/uL Neutrophils # 8.1 H (1.3-7.7) k/uL Lymphocytes # 0.3 L (1.0-4.8) k/uL PT (9.0-12.0) sec INR (<1.2) ABG pH (7.35-7.45) ABG pCO2 (35-45) mmHg ABG pO2 230 H (83-108) mmHg ABG Total CO2 26 H (19-24) mmol/L ABG O2 Saturation 100.0 H (94-97) % ABG Hematocrit (34.0-46.0) % ABG Sodium (135-146) mmol/L ABG Ionized Calcium (4.5-5.3) mg/dL ABG Glucose (75-99) mg/dL ABG Lactic Acid (0.5-1.6) mmol/L Hemoglobin (13.0-17.5) gm/dL Sodium (137-145) mmol/L Potassium (3.5-5.1) mmol/L Chloride (98-107) mmol/L BUN (9-20) mg/dL Creatinine (0.66-1.25) mg/dL Glucose (74-99) mg/dL POC Glucose (mg/dL) 70 L (75-99) mg/dL Calcium (8.4-10.2) mg/dL Magnesium (1.6-2.3) mg/dL Total Bilirubin (0.2-1.3) mg/dL Alkaline Phosphatase (38-126) U/L Total Protein (6.3-8.2) g/dL Albumin (3.5-5.0) g/dL Arterial Blood Glucose (75-99) mg/dL Crossmatch 05/16/19 05/16/19 05/16/19 Range/Units 19:57 21:07 21:55 WBC (3.8-10.6) k/uL RBC (4.30-5.90) m/uL Hgb (13.0-17.5) gm/dL Hct (39.0-53.0) % Plt Count (150-450) k/uL Neutrophils # (1.3-7.7) k/uL Lymphocytes # (1.0-4.8) k/uL PT (9.0-12.0) sec INR (<1.2) ABG pH (7.35-7.45) ABG pCO2 (35-45) mmHg ABG pO2 (83-108) mmHg ABG Total CO2 (19-24) mmol/L ABG O2 Saturation (94-97) % ABG Hematocrit (34.0-46.0) % ABG Sodium (135-146) mmol/L ABG Ionized Calcium (4.5-5.3) mg/dL ABG Glucose (75-99) mg/dL ABG Lactic Acid (0.5-1.6) mmol/L Hemoglobin (13.0-17.5) gm/dL Sodium (137-145) mmol/L Potassium (3.5-5.1) mmol/L Chloride (98-107) mmol/L BUN (9-20) mg/dL Creatinine (0.66-1.25) mg/dL Glucose (74-99) mg/dL POC Glucose (mg/dL) 138 H 142 H 135 H (75-99) mg/dL Calcium (8.4-10.2) mg/dL Magnesium (1.6-2.3) mg/dL Total Bilirubin (0.2-1.3) mg/dL Alkaline Phosphatase (38-126) U/L Total Protein (6.3-8.2) g/dL Albumin (3.5-5.0) g/dL Arterial Blood Glucose (75-99) mg/dL Crossmatch 05/16/19 05/16/19 05/16/19 Range/Units 22:15 22:56 23:53 WBC (3.8-10.6) k/uL RBC 3.60 L (4.30-5.90) m/uL Hgb 11.2 L (13.0-17.5) gm/dL Hct 31.7 L (39.0-53.0) % Plt Count 106 L (150-450) k/uL Neutrophils # 9.5 H (1.3-7.7) k/uL Lymphocytes # 0.3 L (1.0-4.8) k/uL PT (9.0-12.0) sec INR (<1.2) ABG pH (7.35-7.45) ABG pCO2 (35-45) mmHg ABG pO2 (83-108) mmHg ABG Total CO2 (19-24) mmol/L ABG O2 Saturation (94-97) % ABG Hematocrit (34.0-46.0) % ABG Sodium (135-146) mmol/L ABG Ionized Calcium (4.5-5.3) mg/dL ABG Glucose (75-99) mg/dL ABG Lactic Acid (0.5-1.6) mmol/L Hemoglobin (13.0-17.5) gm/dL Sodium (137-145) mmol/L Potassium (3.5-5.1) mmol/L Chloride (98-107) mmol/L BUN (9-20) mg/dL Creatinine (0.66-1.25) mg/dL Glucose (74-99) mg/dL POC Glucose (mg/dL) 101 H 121 H (75-99) mg/dL Calcium (8.4-10.2) mg/dL Magnesium (1.6-2.3) mg/dL Total Bilirubin (0.2-1.3) mg/dL Alkaline Phosphatase (38-126) U/L Total Protein (6.3-8.2) g/dL Albumin (3.5-5.0) g/dL Arterial Blood Glucose (75-99) mg/dL Crossmatch 05/17/19 05/17/19 05/17/19 Range/Units 01:03 02:04 03:05 WBC (3.8-10.6) k/uL RBC (4.30-5.90) m/uL Hgb (13.0-17.5) gm/dL Hct (39.0-53.0) % Plt Count (150-450) k/uL Neutrophils # (1.3-7.7) k/uL Lymphocytes # (1.0-4.8) k/uL PT (9.0-12.0) sec INR (<1.2) ABG pH (7.35-7.45) ABG pCO2 (35-45) mmHg ABG pO2 (83-108) mmHg ABG Total CO2 (19-24) mmol/L ABG O2 Saturation (94-97) % ABG Hematocrit (34.0-46.0) % ABG Sodium (135-146) mmol/L ABG Ionized Calcium (4.5-5.3) mg/dL ABG Glucose (75-99) mg/dL ABG Lactic Acid (0.5-1.6) mmol/L Hemoglobin (13.0-17.5) gm/dL Sodium (137-145) mmol/L Potassium (3.5-5.1) mmol/L Chloride (98-107) mmol/L BUN (9-20) mg/dL Creatinine (0.66-1.25) mg/dL Glucose (74-99) mg/dL POC Glucose (mg/dL) 137 H 127 H 119 H (75-99) mg/dL Calcium (8.4-10.2) mg/dL Magnesium (1.6-2.3) mg/dL Total Bilirubin (0.2-1.3) mg/dL Alkaline Phosphatase (38-126) U/L Total Protein (6.3-8.2) g/dL Albumin (3.5-5.0) g/dL Arterial Blood Glucose (75-99) mg/dL Crossmatch 05/17/19 05/17/19 05/17/19 Range/Units 04:00 04:00 04:06 WBC (3.8-10.6) k/uL RBC 3.34 L (4.30-5.90) m/uL Hgb 10.3 L (13.0-17.5) gm/dL Hct 29.8 L (39.0-53.0) % Plt Count 101 L (150-450) k/uL Neutrophils # 9.1 H (1.3-7.7) k/uL Lymphocytes # 0.4 L (1.0-4.8) k/uL PT (9.0-12.0) sec INR (<1.2) ABG pH (7.35-7.45) ABG pCO2 (35-45) mmHg ABG pO2 (83-108) mmHg ABG Total CO2 (19-24) mmol/L ABG O2 Saturation (94-97) % ABG Hematocrit (34.0-46.0) % ABG Sodium (135-146) mmol/L ABG Ionized Calcium (4.5-5.3) mg/dL ABG Glucose (75-99) mg/dL ABG Lactic Acid (0.5-1.6) mmol/L Hemoglobin (13.0-17.5) gm/dL Sodium 136 L (137-145) mmol/L Potassium 5.3 H (3.5-5.1) mmol/L Chloride 108 H (98-107) mmol/L BUN 23 H (9-20) mg/dL Creatinine 1.32 H (0.66-1.25) mg/dL Glucose 119 H (74-99) mg/dL POC Glucose (mg/dL) 135 H (75-99) mg/dL Calcium 8.2 L (8.4-10.2) mg/dL Magnesium 2.4 H (1.6-2.3) mg/dL Total Bilirubin (0.2-1.3) mg/dL Alkaline Phosphatase 25 L (38-126) U/L Total Protein 5.5 L (6.3-8.2) g/dL Albumin (3.5-5.0) g/dL Arterial Blood Glucose (75-99) mg/dL Crossmatch 05/17/19 05/17/19 05/17/19 Range/Units 04:58 06:09 07:19 WBC (3.8-10.6) k/uL RBC (4.30-5.90) m/uL Hgb (13.0-17.5) gm/dL Hct (39.0-53.0) % Plt Count (150-450) k/uL Neutrophils # (1.3-7.7) k/uL Lymphocytes # (1.0-4.8) k/uL PT (9.0-12.0) sec INR (<1.2) ABG pH (7.35-7.45) ABG pCO2 (35-45) mmHg ABG pO2 (83-108) mmHg ABG Total CO2 (19-24) mmol/L ABG O2 Saturation (94-97) % ABG Hematocrit (34.0-46.0) % ABG Sodium (135-146) mmol/L ABG Ionized Calcium (4.5-5.3) mg/dL ABG Glucose (75-99) mg/dL ABG Lactic Acid (0.5-1.6) mmol/L Hemoglobin (13.0-17.5) gm/dL Sodium (137-145) mmol/L Potassium (3.5-5.1) mmol/L Chloride (98-107) mmol/L BUN (9-20) mg/dL Creatinine (0.66-1.25) mg/dL Glucose (74-99) mg/dL POC Glucose (mg/dL) 119 H 123 H 136 H (75-99) mg/dL Calcium (8.4-10.2) mg/dL Magnesium (1.6-2.3) mg/dL Total Bilirubin (0.2-1.3) mg/dL Alkaline Phosphatase (38-126) U/L Total Protein (6.3-8.2) g/dL Albumin (3.5-5.0) g/dL Arterial Blood Glucose (75-99) mg/dL Crossmatch - Imaging and Cardiology Chest x-ray: report reviewed, image reviewed Assessment and Plan Assessment: 1. Diffuse triple-vessel coronary artery disease with totally occluded right coronary artery, status post four-vessel CABG 2. History of coronary artery disease with stent placement in 2013 3. Stroke in September 2016 with left vertebral artery stenosis 4. Single kidney, chronic kidney disease stage III 5. Tobacco abuse with recent cessation, preoperative FEV1 103% of predicted 6. Obstructive sleep apnea without CPAP use, status post UP3 surgery 7. Type 2 diabetes mellitus with preoperative hemoglobin A1c 6.2% 8. Hypertension 9. Hyperlipidemia 10. May-Thurner syndrome status post recent stenting of bilateral iliac veins 11. Remote history of pneumonia 12. Transitional cell carcinoma 19 years ago 13. Syncope in November 2018 14. Charcot foot with ambulation with a cane 15. Family history of premature coronary artery disease 16. Postoperative acute blood loss anemia and postoperative thrombocytopenia Plan: 1. Continue aspirin, statin, Plavix, beta myriam therapy. Will increase beta myriam therapy as tolerated 2. Discontinue IV nitro. Will start oral Cardizem for radial artery spasm if blood pressure able to tolerate 3. Wean O2 as tolerated. Encourage incentive spirometry use 10 times every hour while awake 4. Encourage continued smoking cessation. Bronchodilators per pulmonology 5. Increase activity, ambulate as tolerated. Patient will need cane to be brought from home. PT/OT/cardiac rehab following. 6. Discontinue [place]. Connect [place] to continuous CVP monitoring 7. Will monitor daily labs and x-rays. Electrolyte replacement per protocol. No transfusion 8. Pain control with current medication regimen. No Toradol secondary to solitary kidney. [place] changed to Ultram 9. Will consult nephrology for recommendations. Avoid nephrotoxic agents 10. Insulin management per primary care service 11. Continue chest tubes for another 24 hours 12. Continue [place] for another 24 hours for strict accurate intake and output. Flomax to be started today per patient's home medication regimen 13. More recommendations to follow based on patient's progress
--- NOTE | 2019-05-17 08:35 | P.CONS ---
History of Present Illness - History of Present Illness This is a pleasant 63 years old male with past medical history of coronary ar danielle disease status post right coronary artery stent in the past, status diabetes mellitus, hypertension, hyperlipidemia, sleep apnea on CPAP/BiPAP, CVA/TIA, GI bleed, peripheral neuropathy, left kidney cancer status post nephrectomy, Chronic kidney disease stage III, Non-Hodgkin lymphoma which is t reated with no residual defect as per patient, right foot Charcot deformity with swelling and pain peripheral vascular disease On 01/19/2019 patient underwent cardiac cath for atypical chest pain with positive stress test for ischemia, showing severe disease involving the left circumflex coronary branches and intermediate to severe disease involving the left anterior descending artery and chronic total occlusion of the RCA with collateral arteries. For this reason patient was referred to cardiothoracic surgery for further evaluation. Patient is a status post coronary artery bypass grafting. Today is postoperative day #1. Patient in the ICU. Vitals are stable. wbc of 10 k, hemoglobin 10.3, potassium 5.3, sodium 136, creatinine 1.3, with baseline fluctuates between 1.0 up to 1.4. sugar controlled. liver enzymes not elevated. chest x-ray showing small pleural effusion Patient currently on small dose of insulin drip, he is taking trulicity at home once a week This morning patient was sitting in chair in the ICU. No specific complaints. Patient to his breakfast with no difficulty. No chest pain or dyspnea. Review of Systems CONSTITUTIONAL: No fever, no malaise, no fatigue. HEENT: No recent visual problems or hearing problems. Denied any sore throat. CARDIOVASCULAR: No orthopnea, PND, no palpitations, no syncope. PULMONARY: No shortness of breath, no cough, no hemoptysis. GASTROINTESTINAL: No diarrhea, no nausea, no vomiting, no abdominal pain. Normoactive bowel sounds. NEUROLOGICAL: No headaches, no weakness, no numbness. HEMATOLOGICAL: Denies any bleeding or petechiae. GENITOURINARY: Denies any burning micturition, frequency, or urgency. MUSCULOSKELETAL/RHEUMATOLOGICAL: Denies any joint pain, swelling, or any muscle pain. ENDOCRINE: Denies any polyuria or polydipsia. Past Medical History Past Medical History: Coronary Artery Disease (CAD), Cancer, Chest Pain / Angina, CVA/TIA, Diabetes Mellitus, GI Bleed, Hyperlipidemia, Hypertension, Myocardial Infarction (CO), Prostate Disorder, Renal Disease, Sleep Apnea/CPAP/BIPAP Additional Past Medical History / Comment(s): SHINGLES 2013 , C-DIFF 2012., HX DIVERTICULOSIS, NEUROPATHY IN HANDS & FEET., LEFT KIDNEY CANCER WITH NEPHRECTOMY URETER & PART OF BLADDER & LYMPH NODES REMOVED., HAS CYST RIGHT KIDNEY, STAGE 3 KIDNEY DISEASE., HX OF SLEEP APNEA (SURGERY)., NON-HODGKINS LYMPHOMA -LAST PET SCAN NEGATIVE., STATES NO RESIDUAL EFFECT FROM HX CVA/TIA., 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 Last Myocardial Infarction Date:: 2012 History of Any Multi-Drug Resistant Organisms: None Reported Past Surgical History: Bowel Resection, Heart Catheterization, Heart Cath eterization With Stent, Hernia Repair, Tonsillectomy Additional Past Surgical History / Comment(s): 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 , CIRCUMCISION cataracts., PIECE OF METAL REMOVED FROM ABD (WAR WOUND) - DEVELOPED SCAR TISSUE & PART OF LARGE INTESTINE REMOVED., ABD HERNIA REPAIR. SX FOR SLEEP APNEA. COLONOSCOPY/POLYPECTOMY., SUDHEER ILIAC VEIN STENTING.,, STATES TOTAL OF 4 CARDIAC STENTS, HEART CATH 12/2018. Past Anesthesia/Blood Transfusion Reactions: No Reported Reaction Date of Last Stent Placement:: 01/2014 Past Psychological History: No Psychological Hx Reported Additional Psychological History / Comment(s): . Smoking Status: Former smoker Past Alcohol Use History: Occasional Additional Past Alcohol Use History / Comment(s): QUIT SMOKING 3 WEEKS AGO (MAR 2019)., STARTED SMOKING AT AGE 12, SMOKED LESS THAN 1/2 PPD. Past Drug Use History: None Reported - Past Family History Mother Additional Family Medical History / Comment(s): from complications from broken hip. Father Family Medical History: Cancer Sister(s) Family Medical History: Diabetes Mellitus, Deep Vein Thrombosis (DVT) Medications and Allergies Home Medications Medication Instructions Recorded Confirmed Type Clopidogrel Bisulfate [Clopidogrel] 75 mg PO DAILY 02/04/14 05/13/19 History Gabapentin [Neurontin] 600 mg PO BID PRN 10/10/16 05/16/19 History traMADol HCL [Ultram] 100 mg PO BID PRN 10/10/16 04/29/19 History Empagliflozin [Jardiance] 25 mg PO DAILY 12/03/18 04/29/19 History Dulaglutide [Trulicity] 1.5 mg SQ MO 01/04/19 04/29/19 History Atorvastatin [Lipitor] 20 mg PO DAILY 04/29/19 04/29/19 History Fluticasone Nasal Dagmar [Flonase 1 - 2 spr EA NOSTRIL DAILY 04/29/19 04/29/19 History Nasal Dagmar] Furosemide [Lasix] 20 mg PO DAILY 04/29/19 04/29/19 History Isosorbide Mononitrate ER [Imdur] 30 mg PO DAILY 04/29/19 04/29/19 History Lisinopril [Zestril] 2.5 mg PO BID 04/29/19 04/29/19 History Metoprolol Tartrate [Lopressor] 25 mg PO DAILY 04/29/19 04/29/19 History Pioglitazone HCl 15 mg PO DAILY 04/29/19 05/16/19 History Potassium Chloride ER [K-Dur 10] 10 meq PO BID 04/29/19 04/29/19 History Tamsulosin HCl [Flomax] 0.4 mg PO BID 04/29/19 04/29/19 History glipiZIDE [Glucotrol] 10 mg PO BID PRN 04/29/19 04/29/19 History Mupirocin [Mupirocin 2%] 1 applic NASAL BID #1 tube 05/10/19 05/13/19 Rx Allergies Allergy/AdvReac Type Severity Reaction Status Date / Time Penicillins Allergy Unknown Verified 05/16/19 05:49 Childhood codeine AdvReac Unknown Nausea & Verified 05/16/19 05:49 Vomiting metformin AdvReac Nausea & Verified 05/16/19 05:49 Vomiting Physical Exam Vitals: Vital Signs Temp Pulse Resp BP Pulse Ox 05/17/19 05:00 80 16 98 05/17/19 04:30 80 13 98 05/17/19 04:00 98.6 F 80 15 97 05/17/19 03:30 80 13 98 05/17/19 03:00 80 24 98 05/17/19 02:30 97.8 F 80 14 98 05/17/19 02:00 80 11 L 99/71 98 05/17/19 01:30 80 11 L 99 05/17/19 01:00 80 11 L 98 05/17/19 00:30 80 11 L 115/80 99 05/17/19 00:00 97.7 F 80 22 98 05/16/19 23:43 98 05/16/19 23:30 80 17 97 05/16/19 23:00 80 11 L 98 05/16/19 22:39 98 05/16/19 22:30 80 13 98 05/16/19 22:00 80 16 98 05/16/19 21:36 80 16 98 05/16/19 21:30 80 17 99 05/16/19 21:00 80 16 99 05/16/19 20:30 97.1 F L 80 16 115/80 99 05/16/19 20:00 97.2 F L 80 16 115/80 99 05/16/19 19:30 80 16 132/94 100 05/16/19 19:17 78 05/16/19 19:00 80 19 100 05/16/19 18:58 80 05/16/19 18:30 80 16 100 05/16/19 18:00 80 16 100 05/16/19 17:30 80 16 100 05/16/19 17:00 80 14 05/16/19 16:50 21 Intake and Output 05/16/19 05/16/19 05/17/19 14:59 22:59 06:59 Intake Total 33 292.950 3939.103 Output Total 3440 760 Balance 33 -2775.324 287.103 Intake: IV 33 649.5 873.5 0.9 250 350 Albumin Human 5% 250 ml 250 250 In Empty Bag 1 bag @ 250 mls/hr IVPB Q1HR PRN Rx#: [id number] CO/CI 100 200 Nitroglycerine 4.5 10.5 Pressure Bags 45 63 Intake, IV Titration 15.176 173.603 Amount ACETAMINOPHEN IV (For NPO 100 ) 1,000 mg In Empty Bag 1 bag @ 400 mls/hr IVPB Q6HR RICKIE Rx#:[id number] Dexmedetomidine/0.9% NaCl 12.953 20.152 (Pmx) 400 mcg In Empty Bag 1 bag @ Titrate IV . Q0M RICKIE Rx#:[id number] Insulin Regular 100 unit 2.223 3.451 In Sodium Chloride 0.9% 100 ml @ Per Protocol IV .Q0M RICKIE Rx#:[id number] ceFAZolin 2 gm In Sodium 50 Chloride 0.9% 50 ml @ 100 mls/hr IVPB Q8HR [facility] Rx# :[id number] Output: Chest Tube Drainage 140 340 Chest Tube Left 80 260 Chest Tube Mediastinal 60 80 Drainage 125 Left Arm 10 Left Chest 50 Left Thigh 45 Medial Chest 20 Urine 1675 420 Estimated Blood Loss 1500 Other: Voiding Method Indwelling Catheter Indwelling Catheter ABP, PAP, CO, CI - Last 8 Hours Arterial Blood Pressure 123/55 Arterial Blood Pressure 99/49 Arterial Blood Pressure 100/50 Arterial Blood Pressure 112/55 Arterial Blood Pressure 115/60 Arterial Blood Pressure 95/53 Arterial Blood Pressure 99/55 Arterial Blood Pressure 109/62 Arterial Blood Pressure 100/57 Arterial Blood Pressure 105/61 Arterial Blood Pressure 109/63 Arterial Blood Pressure 111/63 Arterial Blood Pressure 113/64 Pulmonary Artery Pressure 25/11 Pulmonary Artery Pressure 22/10 Pulmonary Artery Pressure 26/13 Pulmonary Artery Pressure 25/11 Pulmonary Artery Pressure 38/18 Pulmonary Artery Pressure 20/9 Pulmonary Artery Pressure 19/9 Pulmonary Artery Pressure 25/12 Pulmonary Artery Pressure 21/10 Pulmonary Artery Pressure 24/13 Pulmonary Artery Pressure 25/13 Pulmonary Artery Pressure 23/12 Pulmonary Artery Pressure 22/15 Cardiac Output 5.9 Cardiac Output 5.4 Cardiac Output 4.4 Cardiac Output 4.8 Cardiac Output 5 Cardiac Output 5 Cardiac Output 4.8 Cardiac Index 2.9 Cardiac Index 2.6 Cardiac Index 2.1 Cardiac Index 2.3 Cardiac Index 2.4 Cardiac Index 2.4 Cardiac Index 2.3 GENERAL: The patient is alert and oriented x3, not in any acute distress. Well developed, well nourished. HEENT: Pupils are round and equally reacting to light. EOMI. No scleral icterus. No conjunctival pallor. Normocephalic, atraumatic. No pharyngeal erythema. No thyromegaly. CARDIOVASCULAR: S1 and S2 present. No murmurs, rubs, or gallops. PULMONARY: Chest is clear to auscultation, no wheezing or crackles. ABDOMEN: Soft, nontender, nondistended, normoactive bowel sounds. No palpable organomegaly. MUSCULOSKELETAL: No joint swelling or deformity. EXTREMITIES: No cyanosis, clubbing, or pedal edema. NEUROLOGICAL: Gross neurological examination did not reveal any focal deficits. SKIN: No rashes. No petechiae Results CBC & Chem 7: 05/17/19 04:00 05/17/19 04:00 Labs: Abnormal Lab Results - Last 24 Hours (Table) 05/10/19 05/16/19 05/16/19 Range/Units 08:50 08:56 11:27 WBC (3.8-10.6) k/uL RBC (4.30-5.90) m/uL Hgb (13.0-17.5) gm/dL Hct (39.0-53.0) % Plt Count (150-450) k/uL Neutrophils # (1.3-7.7) k/uL Lymphocytes # (1.0-4.8) k/uL PT (9.0-12.0) sec INR (<1.2) ABG pH 7.31 L (7.35-7.45) ABG pCO2 50 H (35-45) mmHg ABG pO2 377 H 120 H (83-108) mmHg ABG Total CO2 26 H 27 H (19-24) mmol/L ABG O2 Saturation 100.0 H 98.8 H (94-97) % ABG Hematocrit (34.0-46.0) % ABG Sodium (135-146) mmol/L ABG Ionized Calcium (4.5-5.3) mg/dL ABG Glucose 153 H (75-99) mg/dL ABG Lactic Acid (0.5-1.6) mmol/L Hemoglobin 12.2 L (13.0-17.5) gm/dL Sodium (137-145) mmol/L Potassium (3.5-5.1) mmol/L Chloride (98-107) mmol/L BUN (9-20) mg/dL Creatinine (0.66-1.25) mg/dL Glucose (74-99) mg/dL POC Glucose (mg/dL) (75-99) mg/dL Calcium (8.4-10.2) mg/dL Magnesium (1.6-2.3) mg/dL Total Bilirubin (0.2-1.3) mg/dL Alkaline Phosphatase (38-126) U/L Total Protein (6.3-8.2) g/dL Albumin (3.5-5.0) g/dL Arterial Blood Glucose 153 H (75-99) mg/dL Crossmatch See Detail 05/16/19 05/16/19 05/16/19 Range/Units 12:20 12:40 13:33 WBC (3.8-10.6) k/uL RBC (4.30-5.90) m/uL Hgb (13.0-17.5) gm/dL Hct (39.0-53.0) % Plt Count (150-450) k/uL Neutrophils # (1.3-7.7) k/uL Lymphocytes # (1.0-4.8) k/uL PT (9.0-12.0) sec INR (<1.2) ABG pH 7.32 L (7.35-7.45) ABG pCO2 46 H (35-45) mmHg ABG pO2 128 H >420 H 178 H (83-108) mmHg ABG Total CO2 25 H 25 H (19-24) mmol/L ABG O2 Saturation 99.1 H 100.0 H 99.6 H (94-97) % ABG Hematocrit 30 L 30 L (34.0-46.0) % ABG Sodium 133 L 134 L (135-146) mmol/L ABG Ionized Calcium 4.2 L 4.3 L (4.5-5.3) mg/dL ABG Glucose 138 H 166 H 232 H (75-99) mg/dL ABG Lactic Acid (0.5-1.6) mmol/L Hemoglobin 11.4 L 9.6 L 9.9 L (13.0-17.5) gm/dL Sodium (137-145) mmol/L Potassium (3.5-5.1) mmol/L Chloride (98-107) mmol/L BUN (9-20) mg/dL Creatinine (0.66-1.25) mg/dL Glucose (74-99) mg/dL POC Glucose (mg/dL) (75-99) mg/dL Calcium (8.4-10.2) mg/dL Magnesium (1.6-2.3) mg/dL Total Bilirubin (0.2-1.3) mg/dL Alkaline Phosphatase (38-126) U/L Total Protein (6.3-8.2) g/dL Albumin (3.5-5.0) g/dL Arterial Blood Glucose 138 H 166 H 232 H (75-99) mg/dL Crossmatch 05/16/19 05/16/19 05/16/19 Range/Units 14:04 14:32 16:03 WBC (3.8-10.6) k/uL RBC (4.30-5.90) m/uL Hgb (13.0-17.5) gm/dL Hct (39.0-53.0) % Plt Count (150-450) k/uL Neutrophils # (1.3-7.7) k/uL Lymphocytes # (1.0-4.8) k/uL PT (9.0-12.0) sec INR (<1.2) ABG pH 7.33 L 7.33 L 7.31 L (7.35-7.45) ABG pCO2 46 H 46 H (35-45) mmHg ABG pO2 311 H 247 H 171 H (83-108) mmHg ABG Total CO2 26 H (19-24) mmol/L ABG O2 Saturation 100.0 H 99.9 H 99.3 H (94-97) % ABG Hematocrit 30 L 30 L 32 L (34.0-46.0) % ABG Sodium (135-146) mmol/L ABG Ionized Calcium 4.3 L 4.3 L (4.5-5.3) mg/dL ABG Glucose 233 H 220 H 146 H (75-99) mg/dL ABG Lactic Acid 2.4 H* 2.2 H* (0.5-1.6) mmol/L Hemoglobin 9.7 L 9.6 L 10.3 L (13.0-17.5) gm/dL Sodium (137-145) mmol/L Potassium (3.5-5.1) mmol/L Chloride (98-107) mmol/L BUN (9-20) mg/dL Creatinine (0.66-1.25) mg/dL Glucose (74-99) mg/dL POC Glucose (mg/dL) (75-99) mg/dL Calcium (8.4-10.2) mg/dL Magnesium (1.6-2.3) mg/dL Total Bilirubin (0.2-1.3) mg/dL Alkaline Phosphatase (38-126) U/L Total Protein (6.3-8.2) g/dL Albumin (3.5-5.0) g/dL Arterial Blood Glucose 233 H 220 H 146 H (75-99) mg/dL Crossmatch 05/16/19 05/16/19 05/16/19 Range/Units 17:00 17:00 17:00 WBC 11.7 H (3.8-10.6) k/uL RBC 3.63 L (4.30-5.90) m/uL Hgb 11.1 L D (13.0-17.5) gm/dL Hct 32.3 L (39.0-53.0) % Plt Count 119 L (150-450) k/uL Neutrophils # 10.3 H (1.3-7.7) k/uL Lymphocytes # 0.5 L (1.0-4.8) k/uL PT 12.9 H (9.0-12.0) sec INR 1.3 H (<1.2) ABG pH (7.35-7.45) ABG pCO2 (35-45) mmHg ABG pO2 (83-108) mmHg ABG Total CO2 (19-24) mmol/L ABG O2 Saturation (94-97) % ABG Hematocrit (34.0-46.0) % ABG Sodium (135-146) mmol/L ABG Ionized Calcium (4.5-5.3) mg/dL ABG Glucose (75-99) mg/dL ABG Lactic Acid (0.5-1.6) mmol/L Hemoglobin (13.0-17.5) gm/dL Sodium (137-145) mmol/L Potassium (3.5-5.1) mmol/L Chloride 108 H (98-107) mmol/L BUN (9-20) mg/dL Creatinine (0.66-1.25) mg/dL Glucose (74-99) mg/dL POC Glucose (mg/dL) (75-99) mg/dL Calcium (8.4-10.2) mg/dL Magnesium 2.9 H (1.6-2.3) mg/dL Total Bilirubin 1.7 H (0.2-1.3) mg/dL Alkaline Phosphatase 21 L (38-126) U/L Total Protein 5.3 L (6.3-8.2) g/dL Albumin 3.4 L (3.5-5.0) g/dL Arterial Blood Glucose (75-99) mg/dL Crossmatch 05/16/19 05/16/19 05/16/19 Range/Units 17:25 18:05 19:56 WBC (3.8-10.6) k/uL RBC 3.61 L (4.30-5.90) m/uL Hgb 10.9 L (13.0-17.5) gm/dL Hct 31.9 L (39.0-53.0) % Plt Count 106 L (150-450) k/uL Neutrophils # 8.1 H (1.3-7.7) k/uL Lymphocytes # 0.3 L (1.0-4.8) k/uL PT (9.0-12.0) sec INR (<1.2) ABG pH (7.35-7.45) ABG pCO2 (35-45) mmHg ABG pO2 230 H (83-108) mmHg ABG Total CO2 26 H (19-24) mmol/L ABG O2 Saturation 100.0 H (94-97) % ABG Hematocrit (34.0-46.0) % ABG Sodium (135-146) mmol/L ABG Ionized Calcium (4.5-5.3) mg/dL ABG Glucose (75-99) mg/dL ABG Lactic Acid (0.5-1.6) mmol/L Hemoglobin (13.0-17.5) gm/dL Sodium (137-145) mmol/L Potassium (3.5-5.1) mmol/L Chloride (98-107) mmol/L BUN (9-20) mg/dL Creatinine (0.66-1.25) mg/dL Glucose (74-99) mg/dL POC Glucose (mg/dL) 70 L (75-99) mg/dL Calcium (8.4-10.2) mg/dL Magnesium (1.6-2.3) mg/dL Total Bilirubin (0.2-1.3) mg/dL Alkaline Phosphatase (38-126) U/L Total Protein (6.3-8.2) g/dL Albumin (3.5-5.0) g/dL Arterial Blood Glucose (75-99) mg/dL Crossmatch 05/16/19 05/16/19 05/16/19 Range/Units 19:57 21:07 21:55 WBC (3.8-10.6) k/uL RBC (4.30-5.90) m/uL Hgb (13.0-17.5) gm/dL Hct (39.0-53.0) % Plt Count (150-450) k/uL Neutrophils # (1.3-7.7) k/uL Lymphocytes # (1.0-4.8) k/uL PT (9.0-12.0) sec INR (<1.2) ABG pH (7.35-7.45) ABG pCO2 (35-45) mmHg ABG pO2 (83-108) mmHg ABG Total CO2 (19-24) mmol/L ABG O2 Saturation (94-97) % ABG Hematocrit (34.0-46.0) % ABG Sodium (135-146) mmol/L ABG Ionized Calcium (4.5-5.3) mg/dL ABG Glucose (75-99) mg/dL ABG Lactic Acid (0.5-1.6) mmol/L Hemoglobin (13.0-17.5) gm/dL Sodium (137-145) mmol/L Potassium (3.5-5.1) mmol/L Chloride (98-107) mmol/L BUN (9-20) mg/dL Creatinine (0.66-1.25) mg/dL Glucose (74-99) mg/dL POC Glucose (mg/dL) 138 H 142 H 135 H (75-99) mg/dL Calcium (8.4-10.2) mg/dL Magnesium (1.6-2.3) mg/dL Total Bilirubin (0.2-1.3) mg/dL Alkaline Phosphatase (38-126) U/L Total Protein (6.3-8.2) g/dL Albumin (3.5-5.0) g/dL Arterial Blood Glucose (75-99) mg/dL Crossmatch 05/16/19 05/16/19 05/16/19 Range/Units 22:15 22:56 23:53 WBC (3.8-10.6) k/uL RBC 3.60 L (4.30-5.90) m/uL Hgb 11.2 L (13.0-17.5) gm/dL Hct 31.7 L (39.0-53.0) % Plt Count 106 L (150-450) k/uL Neutrophils # 9.5 H (1.3-7.7) k/uL Lymphocytes # 0.3 L (1.0-4.8) k/uL PT (9.0-12.0) sec INR (<1.2) ABG pH (7.35-7.45) ABG pCO2 (35-45) mmHg ABG pO2 (83-108) mmHg ABG Total CO2 (19-24) mmol/L ABG O2 Saturation (94-97) % ABG Hematocrit (34.0-46.0) % ABG Sodium (135-146) mmol/L ABG Ionized Calcium (4.5-5.3) mg/dL ABG Glucose (75-99) mg/dL ABG Lactic Acid (0.5-1.6) mmol/L Hemoglobin (13.0-17.5) gm/dL Sodium (137-145) mmol/L Potassium (3.5-5.1) mmol/L Chloride (98-107) mmol/L BUN (9-20) mg/dL Creatinine (0.66-1.25) mg/dL Glucose (74-99) mg/dL POC Glucose (mg/dL) 101 H 121 H (75-99) mg/dL Calcium (8.4-10.2) mg/dL Magnesium (1.6-2.3) mg/dL Total Bilirubin (0.2-1.3) mg/dL Alkaline Phosphatase (38-126) U/L Total Protein (6.3-8.2) g/dL Albumin (3.5-5.0) g/dL Arterial Blood Glucose (75-99) mg/dL Crossmatch 05/17/19 05/17/19 05/17/19 Range/Units 01:03 02:04 03:05 WBC (3.8-10.6) k/uL RBC (4.30-5.90) m/uL Hgb (13.0-17.5) gm/dL Hct (39.0-53.0) % Plt Count (150-450) k/uL Neutrophils # (1.3-7.7) k/uL Lymphocytes # (1.0-4.8) k/uL PT (9.0-12.0) sec INR (<1.2) ABG pH (7.35-7.45) ABG pCO2 (35-45) mmHg ABG pO2 (83-108) mmHg ABG Total CO2 (19-24) mmol/L ABG O2 Saturation (94-97) % ABG Hematocrit (34.0-46.0) % ABG Sodium (135-146) mmol/L ABG Ionized Calcium (4.5-5.3) mg/dL ABG Glucose (75-99) mg/dL ABG Lactic Acid (0.5-1.6) mmol/L Hemoglobin (13.0-17.5) gm/dL Sodium (137-145) mmol/L Potassium (3.5-5.1) mmol/L Chloride (98-107) mmol/L BUN (9-20) mg/dL Creatinine (0.66-1.25) mg/dL Glucose (74-99) mg/dL POC Glucose (mg/dL) 137 H 127 H 119 H (75-99) mg/dL Calcium (8.4-10.2) mg/dL Magnesium (1.6-2.3) mg/dL Total Bilirubin (0.2-1.3) mg/dL Alkaline Phosphatase (38-126) U/L Total Protein (6.3-8.2) g/dL Albumin (3.5-5.0) g/dL Arterial Blood Glucose (75-99) mg/dL Crossmatch 05/17/19 05/17/19 05/17/19 Range/Units 04:00 04:00 04:06 WBC (3.8-10.6) k/uL RBC 3.34 L (4.30-5.90) m/uL Hgb 10.3 L (13.0-17.5) gm/dL Hct 29.8 L (39.0-53.0) % Plt Count 101 L (150-450) k/uL Neutrophils # 9.1 H (1.3-7.7) k/uL Lymphocytes # 0.4 L (1.0-4.8) k/uL PT (9.0-12.0) sec INR (<1.2) ABG pH (7.35-7.45) ABG pCO2 (35-45) mmHg ABG pO2 (83-108) mmHg ABG Total CO2 (19-24) mmol/L ABG O2 Saturation (94-97) % ABG Hematocrit (34.0-46.0) % ABG Sodium (135-146) mmol/L ABG Ionized Calcium (4.5-5.3) mg/dL ABG Glucose (75-99) mg/dL ABG Lactic Acid (0.5-1.6) mmol/L Hemoglobin (13.0-17.5) gm/dL Sodium 136 L (137-145) mmol/L Potassium 5.3 H (3.5-5.1) mmol/L Chloride 108 H (98-107) mmol/L BUN 23 H (9-20) mg/dL Creatinine 1.32 H (0.66-1.25) mg/dL Glucose 119 H (74-99) mg/dL POC Glucose (mg/dL) 135 H (75-99) mg/dL Calcium 8.2 L (8.4-10.2) mg/dL Magnesium 2.4 H (1.6-2.3) mg/dL Total Bilirubin (0.2-1.3) mg/dL Alkaline Phosphatase 25 L (38-126) U/L Total Protein 5.5 L (6.3-8.2) g/dL Albumin (3.5-5.0) g/dL Arterial Blood Glucose (75-99) mg/dL Crossmatch 05/17/19 05/17/19 Range/Units 04:58 06:09 WBC (3.8-10.6) k/uL RBC (4.30-5.90) m/uL Hgb (13.0-17.5) gm/dL Hct (39.0-53.0) % Plt Count (150-450) k/uL Neutrophils # (1.3-7.7) k/uL Lymphocytes # (1.0-4.8) k/uL PT (9.0-12.0) sec INR (<1.2) ABG pH (7.35-7.45) ABG pCO2 (35-45) mmHg ABG pO2 (83-108) mmHg ABG Total CO2 (19-24) mmol/L ABG O2 Saturation (94-97) % ABG Hematocrit (34.0-46.0) % ABG Sodium (135-146) mmol/L ABG Ionized Calcium (4.5-5.3) mg/dL ABG Glucose (75-99) mg/dL ABG Lactic Acid (0.5-1.6) mmol/L Hemoglobin (13.0-17.5) gm/dL Sodium (137-145) mmol/L Potassium (3.5-5.1) mmol/L Chloride (98-107) mmol/L BUN (9-20) mg/dL Creatinine (0.66-1.25) mg/dL Glucose (74-99) mg/dL POC Glucose (mg/dL) 119 H 123 H (75-99) mg/dL Calcium (8.4-10.2) mg/dL Magnesium (1.6-2.3) mg/dL Total Bilirubin (0.2-1.3) mg/dL Alkaline Phosphatase (38-126) U/L Total Protein (6.3-8.2) g/dL Albumin (3.5-5.0) g/dL Arterial Blood Glucose (75-99) mg/dL Crossmatch Assessment and Plan Assessment: Coronary artery disease, with recent history of cardiac cath showing severe coronary artery disease involving the circumflex and moderate to severe involving the left anterior descending artery and total occlusion of the RCA. Diabetes mellitus Hypertension Hyperlipidemia Status post left nephrectomy for history of cancer Chronic kidney disease stage III Non-Hodgkin lymphoma with no residual effects after treatment right foot Charcot deformity with swelling and pain Peripheral vascular disease Plan: This is a pleasant 63 years old male with triple-vessel coronary artery disease status post CABG. Patient remains in the ICU. Patient is followed closely by primary thoracic surgery team. Keep monitoring blood glucose. Cardiology and pulmonary team R following the case as well. Continue with aspirin, and Plavix. Pain management Labs and medication were reviewed.. Continue same treatment. Continue with symptomatic treatment. Resume home medication. Monitor lytes and vitals. DVT and GI prophylaxis. Further recommendations of the clinical course of the patient DVT prophylaxis: Subcutaneous heparin GI Prophylaxis: Protonix
[2019-05-17 08:51] LABS: Glucose,Whole Blood 152 mg/dL (75-99)
[2019-05-17] MEDS: ALBUMIN HUMAN 5% 250 ML in EMPTY BAG 1 BAG IVPB SCH ×3 (08:51→09:07)
[2019-05-17] MEDS ORDERED: PANTOPRAZOLE 40 MG/10 ML VIAL IVP SCH (09:00)
[2019-05-17] MEDS ORDERED: BISACODYL 10 MG SUPP RECTAL PRN (09:00)
[2019-05-17] MEDS ORDERED: MAGNESIUM HYDROXIDE 2,400 MG/10 ML CUP PO PRN (09:00)
[2019-05-17 09:22] VITALS: BMI 31.1
[2019-05-17] MEDS ORDERED: DOPamine DRIP 800 MG in DEXTROSE/WATER 1 250ML.BAG IV SCH (09:30)
[2019-05-17] MEDS: traMADol 50 MG TAB PO PRN ×2 (09:54→19:28)
[2019-05-17 10:01] LABS: Glucose,Whole Blood 161 mg/dL (75-99)
--- NOTE | 2019-05-17 10:41 | P.NPCON ---
History of Present Illness - Reason for Consult acute renal failure - History of Present Illness Reason for consultation: Acute kidney injury on chronic kidney disease History of present illness: Patient is a 63-year-old male seen in renal consultation for acute kidney injury on chronic kidney disease. Patient has chronic kidney disease stage III with baseline creatinine in the range of 1-1.2. Creatinine today is 1.32. Patient has history of transitional cell renal carcinoma and is status post left-sided nephrectomy. Patient underwent four-vessel bypass on May 16. He is extubated. Currently sitting up in chair. Admits to pain at the surgical site. No chest pain or shortness of breath. He has a [place] catheter in place and is nonoliguric. Hemodynamically stable. No vomiting or diarrhea. He did receive 1 L normal saline bolus yesterday. No edema at this time. Off all vasopressors at this time. He does have a long-standing history of diabetes mellitus. Denies family history of renal disease. Vital signs are stable. General: The patient appeared well nourished and normally developed. HEENT: Head exam is unremarkable. Neck is without jugular venous distension. LUNGS: Breath sounds decreased. HEART: Rate and Rhythm are regular. First and second heart sounds normal. No mu rmurs, rubs or gallops. ABDOMEN: Abdominal exam reveals normal bowel sounds. Non-tender and non-dis tended. No evidence of peritonitis. EXTREMITITES: No clubbing, cyanosis, or edema. Past Medical History Past Medical History: Coronary Artery Disease (CAD), Cancer, Chest Pain / Angina, CVA/TIA, Diabetes Mellitus, GI Bleed, Hyperlipidemia, Hypertension, Myocardial Infarction (NE), Prostate Disorder, Renal Disease, Sleep Apnea/CPAP/BIPAP Additional Past Medical History / Comment(s): CATRACHITO 2014 , C-DIFF 2012., HX DIVERTICULOSIS, NEUROPATHY IN HANDS & FEET., LEFT KIDNEY CANCER WITH NEPHRECTOMY URETER & PART OF BLADDER & LYMPH NODES REMOVED., HAS CYST RIGHT KIDNEY, STAGE 3 KIDNEY DISEASE., HX OF SLEEP APNEA (SURGERY)., NON-HODGKINS LYMPHOMA -LAST PET SCAN NEGATIVE., STATES NO RESIDUAL EFFECT FROM HX CVA/TIA., AUGUST THURNERS SYND NICHOL CAUSED CHARCOT FOOT-HAS SWELLING & FX RIGHT FOOT WITH PAIN (WEARS BOOT & USES CANE). 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 , CIRCUMCISION cataracts., PIECE OF METAL REMOVED FROM ABD (WAR WOUND) - DEVELOPED SCAR TISSUE & PART OF LARGE INTESTINE REMOVED., ABD HERNIA REPAIR. SX FOR SLEEP APNEA. COLONOSCOPY/POLYPECTOMY., SUDHEER ILIAC VEIN STENTING.,, STATES TOTAL OF 4 CARDIAC STENTS, HEART CATH 12/2018. Past Anesthesia/Blood Transfusion Reactions: No Reported Reaction Date of Last Stent Placement:: 01/2014 Past Psychological History: No Psychological Hx Reported Additional Psychological History / Comment(s): . Smoking Status: Former smoker Past Alcohol Use History: Occasional Additional Past Alcohol Use History / Comment(s): QUIT SMOKING 3 WEEKS AGO (MAR 2019)., STARTED SMOKING AT AGE 12, SMOKED LESS THAN 1/2 PPD. Past Drug Use History: None Reported - Past Family History Mother Additional Family Medical History / Comment(s): from complications from broken hip. Father Family Medical History: Cancer Sister(s) Family Medical History: Diabetes Mellitus, Deep Vein Thrombosis (DVT) Medications and Allergies Home Medications Medication Instructions Recorded Confirmed Type Clopidogrel Bisulfate [Clopidogrel] 75 mg PO DAILY 02/04/14 05/13/19 History Gabapentin [Neurontin] 600 mg PO BID PRN 10/10/16 05/16/19 History traMADol HCL [Ultram] 100 mg PO BID PRN 10/10/16 04/29/19 History Empagliflozin [Jardiance] 25 mg PO DAILY 12/03/18 04/29/19 History Dulaglutide [Trulicity] 1.5 mg SQ MO 01/04/19 04/29/19 History Atorvastatin [Lipitor] 20 mg PO DAILY 04/29/19 04/29/19 History Fluticasone Nasal [place] [Flonase 1 - 2 spr EA NOSTRIL DAILY 04/29/19 04/29/19 History Nasal [place]] Furosemide [Lasix] 20 mg PO DAILY 04/29/19 04/29/19 History Isosorbide Mononitrate ER [Imdur] 30 mg PO DAILY 04/29/19 04/29/19 History Lisinopril [Zestril] 2.5 mg PO BID 04/29/19 04/29/19 History Metoprolol Tartrate [Lopressor] 25 mg PO DAILY 04/29/19 04/29/19 History Pioglitazone HCl 15 mg PO DAILY 04/29/19 05/16/19 History Potassium Chloride ER [K-Dur 10] 10 meq PO BID 04/29/19 04/29/19 History Tamsulosin HCl [Flomax] 0.4 mg PO BID 04/29/19 04/29/19 History glipiZIDE [Glucotrol] 10 mg PO BID PRN 04/29/19 04/29/19 History Mupirocin [Mupirocin 2%] 1 applic NASAL BID #1 tube 05/10/19 05/13/19 Rx Allergies Allergy/AdvReac Type Severity Reaction Status Date / Time Penicillins Allergy Unknown Verified 05/16/19 05:49 Childhood codeine AdvReac Unknown Nausea & Verified 05/16/19 05:49 Vomiting metformin AdvReac Nausea & Verified 05/16/19 05:49 Vomiting Physical Exam Vitals: Vital Signs Temp Pulse Resp BP Pulse Ox 05/17/19 07:18 81 05/17/19 07:06 79 05/17/19 07:00 80 23 94 L 05/17/19 06:30 102 H 21 95 05/17/19 06:00 80 16 99 05/17/19 05:30 80 14 97 05/17/19 05:00 80 16 98 05/17/19 04:30 80 13 98 05/17/19 04:00 98.6 F 80 15 97 05/17/19 03:30 80 13 98 05/17/19 03:00 80 24 98 05/17/19 02:30 97.8 F 80 14 98 05/17/19 02:00 80 11 L 99/71 98 05/17/19 01:30 80 11 L 99 05/17/19 01:00 80 11 L 98 05/17/19 00:30 80 11 L 115/80 99 05/17/19 00:00 97.7 F 80 22 98 05/16/19 23:43 98 05/16/19 23:30 80 17 97 01/20/20 23:00 80 11 L 98 05/16/19 22:39 98 05/16/19 22:30 80 13 98 05/16/19 22:00 80 16 98 05/16/19 21:36 80 16 98 05/16/19 21:30 80 17 99 05/16/19 21:00 80 16 99 05/16/19 20:30 97.1 F L 80 16 115/80 99 05/16/19 20:00 97.2 F L 80 16 115/80 99 05/16/19 19:30 80 16 132/94 100 05/16/19 19:17 78 05/16/19 19:00 80 19 100 05/16/19 18:58 80 05/16/19 18:30 80 16 100 05/16/19 18:00 80 16 100 05/16/19 17:30 80 16 100 05/16/19 17:00 80 14 05/16/19 16:50 21 Intake and Output 05/16/19 05/17/19 05/17/19 22:59 06:59 14:59 Intake Total 003.315 4133.603 354.363 Output Total 3440 905 403 Balance -2775.324 242.603 -48.637 Intake: IV 649.5 974.0 350.5 0.9 250 400 50 Albumin Human 5% 250 ml 250 250 250 In Empty Bag 1 bag @ 250 mls/hr IVPB Q1HR PRN Rx#: [id number] CO/CI 100 240 40 Nitroglycerine 4.5 12.0 1.5 Pressure Bags 45 72 9 Intake, IV Titration 15.176 173.603 3.863 Amount ACETAMINOPHEN IV (For NPO 100 ) 1,000 mg In Empty Bag 1 bag @ 400 mls/hr IVPB Q6HR RICKIE Rx#:[id number] Dexmedetomidine/0.9% NaCl 12.953 20.152 (Pmx) 400 mcg In Empty Bag 1 bag @ Titrate IV . Q0M RICKIE Rx#:[id number] Insulin Regular 100 unit 2.223 3.451 3.863 In Sodium Chloride 0.9% 100 ml @ Per Protocol IV .Q0M RICKIE Rx#:[id number] ceFAZolin 2 gm In Sodium 50 Chloride 0.9% 50 ml @ 100 mls/hr IVPB Q8HR RICKIE Rx# :[id number] Output: Chest Tube Drainage 140 410 80 Chest Tube Left 80 300 50 Chest Tube Mediastinal 60 110 30 Drainage 125 198 Left Arm 10 Left Chest 50 Left Thigh 45 198 Medial Chest 20 Urine 1675 495 125 Estimated Blood Loss 1500 Other: Voiding Method Indwelling Catheter Indwelling Catheter Weight 95.7 kg 95.7 kg ABP, PAP, CO, CI - Last 8 Hours Arterial Blood Pressure 81/41 Arterial Blood Pressure 97/47 Arterial Blood Pressure 120/53 Arterial Blood Pressure 120/57 Arterial Blood Pressure 123/55 Arterial Blood Pressure 99/49 Arterial Blood Pressure 100/50 Arterial Blood Pressure 112/55 Arterial Blood Pressure 115/60 Pulmonary Artery Pressure 16/4 Pulmonary Artery Pressure 24/4 Pulmonary Artery Pressure 28/11 Pulmonary Artery Pressure 27/10 Pulmonary Artery Pressure 25/11 Pulmonary Artery Pressure 22/10 Pulmonary Artery Pressure 26/13 Pulmonary Artery Pressure 25/11 Pulmonary Artery Pressure 38/18 Cardiac Output 5.9 Cardiac Output 5.4 Cardiac Index 2.9 Cardiac Index 2.6 Results - Lab Results Most recent lab results ABG pH 7.37 (7.35-7.45) 05/16/19 17:25 ABG pCO2 43 mmHg (35-45) 05/16/19 17:25 ABG pO2 230 mmHg (83-108) H 05/16/19 17:25 ABG HCO3 25 mmol/L (21-25) 05/16/19 17:25 ABG O2 Saturation 100.0 % (94-97) H 05/16/19 17:25 Calcium 8.2 mg/dL (8.4-10.2) L 05/17/19 04:00 Magnesium 2.4 mg/dL (1.6-2.3) H 05/17/19 04:00 05/17/19 04:00 05/17/19 04:00 Assessment and Plan Plan: Assessment: 1. Acute kidney injury mostly prerenal secondary to hemodynamic instability. Creatinine 1.32 today. 2. Chronic kidney disease stage III secondary to solitary right kidney. Baseline creatinine in the range of 1-1.2. 3. Coronary artery disease status post four-vessel bypass in 05/16/2019. 4. Mild hyperkalemia secondary to acute kidney injury. 5. Diabetes mellitus. 6. 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 Plan: Encourage oral intake. Avoid nephrotoxins. Okay to start low-dose dopamine to maintain adequate perfusion. Continue to monitor renal function and urine output. Repeat potassium level this evening. Thank you for the consultation. I will continue to follow the patient with you during his hospital stay.
[2019-05-17 11:50] LABS: Glucose,Whole Blood 163 mg/dL (75-99)
[2019-05-17 13:54] LABS: Glucose,Whole Blood 146 mg/dL (75-99)
[2019-05-17 15:24] LABS: Glucose,Whole Blood 116 mg/dL (75-99)
[2019-05-17] MEDS: fentaNYL (PF) 50 MCG/ML 2 ML AMP IVP PRN ×2 (15:31→20:50)
[2019-05-17 16:08] LABS: Calcium 8.7 mg/dL (8.4-10.2); Potassium 4.3 mmol/L (3.5-5.1)
--- NOTE | 2019-05-17 16:24 | P.CONS ---
History of Present Illness - Chief Complaint Cardiac debility - History of Present Illness I had the opportunity to see patient for inpatient rehab consultation with regard to cardiac debility. He is admitted to [facility] May 16 with cardiac disease underwent 4 vessel CABG. Seen in consultation by nephrology for acute on chronic injury. Patient does undergo bypass, Dr. Jade. Chest x-rays followed and note atelectasis and cardiomegaly. PT reports two-person moderate assistance for transfers and gait 48 feet, balance poor and fatigues. OT reports moderate assistance for upper dressing and total assistance for lower dressing and toileting and maximal assistance for bathing. 2 person maximal assistance for toilet transfer. Previous functional history as elicited patient: 63-year-old right-handed white male who lives with significant other for 9 months now, and one floor home. Patient works part-time in his significant other works full-time. Patient describes independent with showers and driving indeed. Was using a boot for Charcot foot. Dr. Armenta is regular doctor. History smoking but just quit. Very rare drink. Family history of father with COPD and was a smoker. Review of Systems Review of systems: ENT: Denies sneezes or discharge. Eyes: Denies discharge or photophobia. Cardiac: Sternal discomfort. Pulmonary: [id number] shortness of breath. Gastrointestinal: Denies nausea, emesis, constipation, diarrhea. Genitourinary: Denies discharge or frequency. Musculoskeletal: Denies muscle or bone aches. Neurologic: Generalized weakness. Endocrine: Denies shakes or sweats. Oncology: Denies cancers. Dermatologic: Denies rash, itching, pruritus. ALLERGY/immunology: Denies sneezes, rashes. Past Medical History Past Medical History: Coronary Artery Disease (CAD), Cancer, Chest Pain / Angina, CVA/TIA, Diabetes Mellitus, GI Bleed, Hyperlipidemia, Hypertension, Myocardial Infarction (ID), Prostate Disorder, Renal Disease, Sleep Apnea/CPAP/BIPAP Additional Past Medical History / Comment(s): CATRACHITO 2014 , C-DIFF 2012., HX DIVERTICULOSIS, NEUROPATHY IN HANDS & FEET., LEFT KIDNEY CANCER WITH NEPHRECTOMY URETER & PART OF BLADDER & LYMPH NODES REMOVED., HAS CYST RIGHT KIDNEY, STAGE 3 KIDNEY DISEASE., HX OF SLEEP APNEA (SURGERY)., NON-HODGKINS LYMPHOMA -LAST PET SCAN NEGATIVE., STATES NO RESIDUAL EFFECT FROM HX CVA/TIA., 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 , CIRCUMCISION cataracts., PIE CE OF METAL REMOVED FROM ABD (WAR WOUND) - DEVELOPED SCAR TISSUE & PART OF LARGE INTESTINE REMOVED., ABD HERNIA REPAIR. SX FOR SLEEP APNEA. COLONOSCOPY/POLYPECTOMY., SUDHEER ILIAC VEIN STENTING.,, STATES TOTAL OF 4 CARDIAC STENTS, HEART CATH 12/2018. Past Anesthesia/Blood Transfusion Reactions: No Reported Reaction Date of Last Stent Placement:: 01/2014 Past Psychological History: No Psychological Hx Reported Additional Psychological History / Comment(s): . Smoking Status: Former smoker Past Alcohol Use History: Occasional Additional Past Alcohol Use History / Comment(s): QUIT SMOKING 3 WEEKS AGO (MAR 2019)., STARTED SMOKING AT AGE 12, SMOKED LESS THAN 1/2 PPD. Past Drug Use History: None Reported - Past Family History Mother Additional Family Medical History / Comment(s): from complications from broken hip. Father Family Medical History: Cancer Sister(s) Family Medical History: Diabetes Mellitus, Deep Vein Thrombosis (DVT) Medications and Allergies Home Medications Medication Instructions Recorded Confirmed Type Clopidogrel Bisulfate [Clopidogrel] 75 mg PO DAILY 02/04/14 05/13/19 History Gabapentin [Neurontin] 600 mg PO BID PRN 10/10/16 05/16/19 History traMADol HCL [Ultram] 100 mg PO BID PRN 10/10/16 04/29/19 History Empagliflozin [Jardiance] 25 mg PO DAILY 12/03/18 04/29/19 History Dulaglutide [Trulicity] 1.5 mg SQ MO 01/04/19 04/29/19 History Atorvastatin [Lipitor] 20 mg PO DAILY 04/29/19 04/29/19 History Fluticasone Nasal [place] [Flonase 1 - 2 spr EA NOSTRIL DAILY 04/29/19 04/29/19 History Nasal [place]] Furosemide [Lasix] 20 mg PO DAILY 04/29/19 04/29/19 History Isosorbide Mononitrate ER [Imdur] 30 mg PO DAILY 04/29/19 04/29/19 History Lisinopril [Zestril] 2.5 mg PO BID 04/29/19 04/29/19 History Metoprolol Tartrate [Lopressor] 25 mg PO DAILY 04/29/19 04/29/19 History Pioglitazone HCl 15 mg PO DAILY 04/29/19 05/16/19 History Potassium Chloride ER [K-Dur 10] 10 meq PO BID 04/29/19 04/29/19 History Tamsulosin HCl [Flomax] 0.4 mg PO BID 04/29/19 04/29/19 History glipiZIDE [Glucotrol] 10 mg PO BID PRN 04/29/19 04/29/19 History Mupirocin [Mupirocin 2%] 1 applic NASAL BID #1 tube 05/10/19 05/13/19 Rx Allergies Allergy/AdvReac Type Severity Reaction Status Date / Time Penicillins Allergy Unknown Verified 05/16/19 05:49 Childhood codeine AdvReac Unknown Nausea & Verified 05/16/19 05:49 Vomiting metformin AdvReac Nausea & Verified 05/16/19 05:49 Vomiting Physical Exam Vitals: Vital Signs Temp Pulse Resp BP Pulse Ox 05/17/19 16:01 71 05/17/19 15:47 69 05/17/19 15:09 80 10 L 94 L 05/17/19 14:00 74 15 111/55 94 L 05/17/19 13:00 79 21 114/56 94 L 05/17/19 12:00 98.2 F 80 20 92/56 90 L 05/17/19 11:00 86 14 119/56 91 L 05/17/19 10:00 81 16 107/62 97 05/17/19 09:00 77 18 94/59 97 05/17/19 08:00 98.8 F 96 21 106/64 97 05/17/19 07:18 81 05/17/19 07:06 79 05/17/19 07:00 80 23 94 L 05/17/19 06:30 102 H 21 95 05/17/19 06:00 80 16 99 05/17/19 05:30 80 14 97 05/17/19 05:00 80 16 98 05/17/19 04:30 80 13 98 05/17/19 04:00 98.6 F 80 15 97 05/17/19 03:30 80 13 98 05/17/19 03:00 80 24 98 05/17/19 02:30 97.8 F 80 14 98 05/17/19 02:00 80 11 L 99/71 98 05/17/19 01:30 80 11 L 99 05/17/19 01:00 80 11 L 98 05/17/19 00:30 80 11 L 115/80 99 05/17/19 00:00 97.7 F 80 22 98 05/16/19 23:43 98 05/16/19 23:30 80 17 97 05/16/19 23:00 80 11 L 98 05/16/19 22:39 98 05/16/19 22:30 80 13 98 05/16/19 22:00 80 16 98 05/16/19 21:36 80 16 98 05/16/19 21:30 80 17 99 05/16/19 21:00 80 16 99 05/16/19 20:30 97.1 F L 80 16 115/80 99 05/16/19 20:00 97.2 F L 80 16 115/80 99 05/16/19 19:30 80 16 132/94 100 05/16/19 19:17 78 05/16/19 19:00 80 19 100 05/16/19 18:58 80 05/16/19 18:30 80 16 100 05/16/19 18:00 80 16 100 05/16/19 17:30 80 16 100 05/16/19 17:00 80 14 05/16/19 16:50 21 Intake and Output 05/17/19 05/17/19 05/17/19 06:59 14:59 22:59 Intake Total 5493.153 2695.863 36 Output Total 905 1383 75 Balance 242.603 113.863 -39 Intake: IV 974.0 1493.0 36 0.9 400 320 30 Albumin Human 5% 250 ml 250 1000 In Empty Bag 1 bag @ 250 mls/hr IVPB Q1HR PRN Rx#: [id number] CO/CI 240 110 Nitroglycerine 12.0 3.0 Pressure Bags 72 60 6 Intake, IV Titration 173.603 3.863 Amount ACETAMINOPHEN IV (For NPO 100 ) 1,000 mg In Empty Bag 1 bag @ 400 mls/hr IVPB Q6HR RICKIE Rx#:[id number] Dexmedetomidine/0.9% NaCl 20.152 (Pmx) 400 mcg In Empty Bag 1 bag @ Titrate IV . Q0M RICKIE Rx#:[id number] Insulin Regular 100 unit 3.451 3.863 In Sodium Chloride 0.9% 100 ml @ Per Protocol IV .Q0M RICKIE Rx#:[id number] ceFAZolin 2 gm In Sodium 50 Chloride 0.9% 50 ml @ 100 mls/hr IVPB Q8HR RICKIE Rx# :[id number] Output: Chest Tube Drainage 410 315 Chest Tube Left 300 205 Chest Tube Mediastinal 110 110 Drainage 233 Left Arm 0 Left Thigh 233 Urine 495 835 75 Other: Voiding Method Indwelling Catheter Indwelling Catheter Weight 95.7 kg 95.7 kg ABP, PAP, CO, CI - Last 8 Hours Arterial Blood Pressure 80/42 Arterial Blood Pressure 111/47 Arterial Blood Pressure 128/48 Arterial Blood Pressure 114/47 Arterial Blood Pressure 105/43 Arterial Blood Pressure 100/42 Arterial Blood Pressure 88/40 Pulmonary Artery Pressure 28/10 Pulmonary Artery Pressure 26/8 Cardiac Output 6.4 Cardiac Output 8.2 Cardiac Index 3.1 Cardiac Index 4 Skin: Good color, texture, turgor. General: Medium build and comfortable appearance. Head: Normocephalic, atraumatic. Eyes: Symmetric. Pupils equal round. Ears: Symmetric. Hearing within normal limits. Mouth: Clear. Neck: Supple. Carotid without bruit. Cardiac: Regular rate and rhythm. Lungs: Clear anteriorly and posteriorly. Abdomen: Soft active nontender. Extremities: Normal tone. Neurological: Mental status: Alert, cooperative, pleasant. Cranial nerves: Symmetric facial tone and trapezius. Motor: Can actively elevate all 4 limbs but about antigravity. Sensation: Intact throughout. DTRs: Symmetric and equal throughout. Mobility: Two-person assistance for transfer to bedside Denise chair. Results CBC & Chem 7: 05/17/19 04:00 05/17/19 15:15 Labs: Abnormal Lab Results - Last 24 Hours (Table) 0105/16/19 05/16/19 Range/Units 08:50 17:00 17:00 WBC 11.7 H (3.8-10.6) k/uL RBC 3.63 L (4.30-5.90) m/uL Hgb 11.1 L D (13.0-17.5) gm/dL Hct 32.3 L (39.0-53.0) % Plt Count 119 L (150-450) k/uL Neutrophils # 10.3 H (1.3-7.7) k/uL Lymphocytes # 0.5 L (1.0-4.8) k/uL PT (9.0-12.0) sec INR (<1.2) ABG pO2 (83-108) mmHg ABG Total CO2 (19-24) mmol/L ABG O2 Saturation (94-97) % Sodium (137-145) mmol/L Potassium (3.5-5.1) mmol/L Chloride 108 H (98-107) mmol/L Carbon Dioxide (22-30) mmol/L BUN (9-20) mg/dL Creatinine (0.66-1.25) mg/dL Glucose (74-99) mg/dL POC Glucose (mg/dL) (75-99) mg/dL Calcium (8.4-10.2) mg/dL Magnesium 2.9 H (1.6-2.3) mg/dL Total Bilirubin 1.7 H (0.2-1.3) mg/dL Alkaline Phosphatase 21 L (38-126) U/L Total Protein 5.3 L (6.3-8.2) g/dL Albumin 3.4 L (3.5-5.0) g/dL Crossmatch See Detail 05/16/19 05/16/19 05/16/19 Range/Units 17:00 17:25 18:05 WBC (3.8-10.6) k/uL RBC (4.30-5.90) m/uL Hgb (13.0-17.5) gm/dL Hct (39.0-53.0) % Plt Count (150-450) k/uL Neutrophils # (1.3-7.7) k/uL Lymphocytes # (1.0-4.8) k/uL PT 12.9 H (9.0-12.0) sec INR 1.3 H (<1.2) ABG pO2 230 H (83-108) mmHg ABG Total CO2 26 H (19-24) mmol/L ABG O2 Saturation 100.0 H (94-97) % Sodium (137-145) mmol/L Potassium (3.5-5.1) mmol/L Chloride (98-107) mmol/L Carbon Dioxide (22-30) mmol/L BUN (9-20) mg/dL Creatinine (0.66-1.25) mg/dL Glucose (74-99) mg/dL POC Glucose (mg/dL) 70 L (75-99) mg/dL Calcium (8.4-10.2) mg/dL Magnesium (1.6-2.3) mg/dL Total Bilirubin (0.2-1.3) mg/dL Alkaline Phosphatase (38-126) U/L Total Protein (6.3-8.2) g/dL Albumin (3.5-5.0) g/dL Crossmatch 05/16/19 05/16/19 05/16/19 Range/Units 19:56 19:57 21:07 WBC (3.8-10.6) k/uL RBC 3.61 L (4.30-5.90) m/uL Hgb 10.9 L (13.0-17.5) gm/dL Hct 31.9 L (39.0-53.0) % Plt Count 106 L (150-450) k/uL Neutrophils # 8.1 H (1.3-7.7) k/uL Lymphocytes # 0.3 L (1.0-4.8) k/uL PT (9.0-12.0) sec INR (<1.2) ABG pO2 (83-108) mmHg ABG Total CO2 (19-24) mmol/L ABG O2 Saturation (94-97) % Sodium (137-145) mmol/L Potassium (3.5-5.1) mmol/L Chloride (98-107) mmol/L Carbon Dioxide (22-30) mmol/L BUN (9-20) mg/dL Creatinine (0.66-1.25) mg/dL Glucose (74-99) mg/dL POC Glucose (mg/dL) 138 H 142 H (75-99) mg/dL Calcium (8.4-10.2) mg/dL Magnesium (1.6-2.3) mg/dL Total Bilirubin (0.2-1.3) mg/dL Alkaline Phosphatase (38-126) U/L Total Protein (6.3-8.2) g/dL Albumin (3.5-5.0) g/dL Crossmatch 05/16/19 05/16/19 05/16/19 Range/Units 21:55 22:15 22:56 WBC (3.8-10.6) k/uL RBC 3.60 L (4.30-5.90) m/uL Hgb 11.2 L (13.0-17.5) gm/dL Hct 31.7 L (39.0-53.0) % Plt Count 106 L (150-450) k/uL Neutrophils # 9.5 H (1.3-7.7) k/uL Lymphocytes # 0.3 L (1.0-4.8) k/uL PT (9.0-12.0) sec INR (<1.2) ABG pO2 (83-108) mmHg ABG Total CO2 (19-24) mmol/L ABG O2 Saturation (94-97) % Sodium (137-145) mmol/L Potassium (3.5-5.1) mmol/L Chloride (98-107) mmol/L Carbon Dioxide (22-30) mmol/L BUN (9-20) mg/dL Creatinine (0.66-1.25) mg/dL Glucose (74-99) mg/dL POC Glucose (mg/dL) 135 H 101 H (75-99) mg/dL Calcium (8.4-10.2) mg/dL Magnesium (1.6-2.3) mg/dL Total Bilirubin (0.2-1.3) mg/dL Alkaline Phosphatase (38-126) U/L Total Protein (6.3-8.2) g/dL Albumin (3.5-5.0) g/dL Crossmatch 05/16/19 05/17/19 05/17/19 Range/Units 23:53 01:03 02:04 WBC (3.8-10.6) k/uL RBC (4.30-5.90) m/uL Hgb (13.0-17.5) gm/dL Hct (39.0-53.0) % Plt Count (150-450) k/uL Neutrophils # (1.3-7.7) k/uL Lymphocytes # (1.0-4.8) k/uL PT (9.0-12.0) sec INR (<1.2) ABG pO2 (83-108) mmHg ABG Total CO2 (19-24) mmol/L ABG O2 Saturation (94-97) % Sodium (137-145) mmol/L Potassium (3.5-5.1) mmol/L Chloride (98-107) mmol/L Carbon Dioxide (22-30) mmol/L BUN (9-20) mg/dL Creatinine (0.66-1.25) mg/dL Glucose (74-99) mg/dL POC Glucose (mg/dL) 121 H 137 H 127 H (75-99) mg/dL Calcium (8.4-10.2) mg/dL Magnesium (1.6-2.3) mg/dL Total Bilirubin (0.2-1.3) mg/dL Alkaline Phosphatase (38-126) U/L Total Protein (6.3-8.2) g/dL Albumin (3.5-5.0) g/dL Crossmatch 05/17/19 05/17/19 05/17/19 Range/Units 03:05 04:00 04:00 WBC (3.8-10.6) k/uL RBC 3.34 L (4.30-5.90) m/uL Hgb 10.3 L (13.0-17.5) gm/dL Hct 29.8 L (39.0-53.0) % Plt Count 101 L (150-450) k/uL Neutrophils # 9.1 H (1.3-7.7) k/uL Lymphocytes # 0.4 L (1.0-4.8) k/uL PT (9.0-12.0) sec INR (<1.2) ABG pO2 (83-108) mmHg ABG Total CO2 (19-24) mmol/L ABG O2 Saturation (94-97) % Sodium 136 L (137-145) mmol/L Potassium 5.3 H (3.5-5.1) mmol/L Chloride 108 H (98-107) mmol/L Carbon Dioxide (22-30) mmol/L BUN 23 H (9-20) mg/dL Creatinine 1.32 H (0.66-1.25) mg/dL Glucose 119 H (74-99) mg/dL POC Glucose (mg/dL) 119 H (75-99) mg/dL Calcium 8.2 L (8.4-10.2) mg/dL Magnesium 2.4 H (1.6-2.3) mg/dL Total Bilirubin (0.2-1.3) mg/dL Alkaline Phosphatase 25 L (38-126) U/L Total Protein 5.5 L (6.3-8.2) g/dL Albumin (3.5-5.0) g/dL Crossmatch 05/17/19 05/17/19 05/17/19 Range/Units 04:06 04:58 06:09 WBC (3.8-10.6) k/uL RBC (4.30-5.90) m/uL Hgb (13.0-17.5) gm/dL Hct (39.0-53.0) % Plt Count (150-450) k/uL Neutrophils # (1.3-7.7) k/uL Lymphocytes # (1.0-4.8) k/uL PT (9.0-12.0) sec INR (<1.2) ABG pO2 (83-108) mmHg ABG Total CO2 (19-24) mmol/L ABG O2 Saturation (94-97) % Sodium (137-145) mmol/L Potassium (3.5-5.1) mmol/L Chloride (98-107) mmol/L Carbon Dioxide (22-30) mmol/L BUN (9-20) mg/dL Creatinine (0.66-1.25) mg/dL Glucose (74-99) mg/dL POC Glucose (mg/dL) 135 H 119 H 123 H (75-99) mg/dL Calcium (8.4-10.2) mg/dL Magnesium (1.6-2.3) mg/dL Total Bilirubin (0.2-1.3) mg/dL Alkaline Phosphatase (38-126) U/L Total Protein (6.3-8.2) g/dL Albumin (3.5-5.0) g/dL Crossmatch 05/17/19 05/17/19 05/17/19 Range/Units 07:19 08:50 10:00 WBC (3.8-10.6) k/uL RBC (4.30-5.90) m/uL Hgb (13.0-17.5) gm/dL Hct (39.0-53.0) % Plt Count (150-450) k/uL Neutrophils # (1.3-7.7) k/uL Lymphocytes # (1.0-4.8) k/uL PT (9.0-12.0) sec INR (<1.2) ABG pO2 (83-108) mmHg ABG Total CO2 (19-24) mmol/L ABG O2 Saturation (94-97) % Sodium (137-145) mmol/L Potassium (3.5-5.1) mmol/L Chloride (98-107) mmol/L Carbon Dioxide (22-30) mmol/L BUN (9-20) mg/dL Creatinine (0.66-1.25) mg/dL Glucose (74-99) mg/dL POC Glucose (mg/dL) 136 H 152 H 161 H (75-99) mg/dL Calcium (8.4-10.2) mg/dL Magnesium (1.6-2.3) mg/dL Total Bilirubin (0.2-1.3) mg/dL Alkaline Phosphatase (38-126) U/L Total Protein (6.3-8.2) g/dL Albumin (3.5-5.0) g/dL Crossmatch 05/17/19 05/17/19 05/17/19 Range/Units 11:48 13:52 15:15 WBC (3.8-10.6) k/uL RBC (4.30-5.90) m/uL Hgb (13.0-17.5) gm/dL Hct (39.0-53.0) % Plt Count (150-450) k/uL Neutrophils # (1.3-7.7) k/uL Lymphocytes # (1.0-4.8) k/uL PT (9.0-12.0) sec INR (<1.2) ABG pO2 (83-108) mmHg ABG Total CO2 (19-24) mmol/L ABG O2 Saturation (94-97) % Sodium (137-145) mmol/L Potassium (3.5-5.1) mmol/L Chloride (98-107) mmol/L Carbon Dioxide 21 L (22-30) mmol/L BUN 25 H (9-20) mg/dL Creatinine 1.40 H (0.66-1.25) mg/dL Glucose 113 H (74-99) mg/dL POC Glucose (mg/dL) 163 H 146 H (75-99) mg/dL Calcium (8.4-10.2) mg/dL Magnesium (1.6-2.3) mg/dL Total Bilirubin (0.2-1.3) mg/dL Alkaline Phosphatase (38-126) U/L Total Protein (6.3-8.2) g/dL Albumin (3.5-5.0) g/dL Crossmatch 05/17/19 Range/Units 15:22 WBC (3.8-10.6) k/uL RBC (4.30-5.90) m/uL Hgb (13.0-17.5) gm/dL Hct (39.0-53.0) % Plt Count (150-450) k/uL Neutrophils # (1.3-7.7) k/uL Lymphocytes # (1.0-4.8) k/uL PT (9.0-12.0) sec INR (<1.2) ABG pO2 (83-108) mmHg ABG Total CO2 (19-24) mmol/L ABG O2 Saturation (94-97) % Sodium (137-145) mmol/L Potassium (3.5-5.1) mmol/L Chloride (98-107) mmol/L Carbon Dioxide (22-30) mmol/L BUN (9-20) mg/dL Creatinine (0.66-1.25) mg/dL Glucose (74-99) mg/dL POC Glucose (mg/dL) 116 H (75-99) mg/dL Calcium (8.4-10.2) mg/dL Magnesium (1.6-2.3) mg/dL Total Bilirubin (0.2-1.3) mg/dL Alkaline Phosphatase (38-126) U/L Total Protein (6.3-8.2) g/dL Albumin (3.5-5.0) g/dL Crossmatch Assessment and Plan (1) CAD (coronary artery disease) Current Visit: Yes Status: Chronic Code(s): I25.10 - ATHSCL HEART DISEASE OF [place] CORONARY ARTERY W/O ANG PCTRS SNOMED Code(s): 14409990 (2) Acute kidney injury Current Visit: No Status: Acute Code(s): N17.9 - ACUTE KIDNEY FAILURE, UNSPECIFIED SNOMED Code(s): 97636604 Plan: Impression: 1. Cardiac debility. 2. Coronary disease with history of ID and angina with recent CABG. 3. Acute on chronic kidney injury. 4. Hypertension. 5. Diabetes. 6. History of stroke. 7. Dyslipidemia. 8. Sleep apnea. Comments and plan: At this time PT and OT are ongoing for safety concerns noted. We'll follow with yourself. Have discussed possible inpatient rehab with patient and he seems agreeable if necessary.
--- NOTE | 2019-05-17 16:45 | P.PN ---
Subjective This is Isa Ayala PA-C dictating a progress note on this patient The patient was interviewed and examined by me as well as by Dr. Dinero Case discussed with Dr. Dinero and he agrees with the plan of care IMPRESSION / ASSESSMENT: Triple-vessel CAD status post CABG 4 History of CVA CKD RAPHAEL Hypertension Dyslipidemia Diabetes PLAN: Continue aspirin and statins, Plavix Continue beta blockers Maximize medical therapy for CAD as tolerated HPI/interval history Patient is a 63-year-old male with a past medical history of CAD, hypertension, dyslipidemia, diabetes who presented for coronary artery bypass grafting. Today he underwent quadruple coronary artery bypass grafting using the left internal mammary to the LAD, left radial artery to the first OM, 6 ECG to the second OM, and SVG to the RCA. Patient seen and examined in the ICU, sitting in the chair. Complains of postoperative discomfort. Bedside telemetry revealed sinus rhythm. EXAMINATION Patient is afebrile, pulse in the 70s, respirations 15, blood pressure 111/55, oxygen saturation 94% on 2 L nasal cannula Patient seen and examined sitting up in the chair, in no acute distress Lungs clear to auscultation bilaterally, no audible wheezing rhonchi or crackles Heart is regular, no audible murmurs Lower extremities warm, no edema noted REVIEW OF LABS, ECG WBC 10, hemoglobin 10.3, platelets 101,, potassium 4.3, BUN 25, creatinine 1.4, Objective - Vital Signs Vital signs: Vital Signs Temp 98.2 F 05/17/19 12:00 Pulse 71 05/17/19 16:01 Resp 10 L 05/17/19 15:09 BP 111/55 05/17/19 14:00 Pulse Ox 94 L 05/17/19 15:09 Intake & Output 05/16/19 05/17/19 05/17/19 18:59 06:59 18:59 Intake Total 401 8193.348 2626.863 Output Total 3005 1340 1458 Balance -2604 104.279 74.863 Weight 95.7 kg 95.7 kg Intake: IV 401 1255.5 1529.0 0.9 100 550 350 Albumin Human 5% 250 ml 396 314 2680 In Empty Bag 1 bag @ 250 mls/hr IVPB Q1HR PRN Rx#: [id number] CO/CI 340 110 Nitroglycerine 16.5 3.0 Pressure Bags 18 99 66 Intake, IV Titration 188.779 3.863 Amount ACETAMINOPHEN IV (For NPO 100 ) 1,000 mg In Empty Bag 1 bag @ 400 mls/hr IVPB Q6HR [facility] Rx#:[id number] Dexmedetomidine/0.9% NaCl 33.105 (Pmx) 400 mcg In Empty Bag 1 bag @ Titrate IV . Q0M R[facility] Rx#:[id number] Insulin Regular 100 unit 5.674 3.863 In Sodium Chloride 0.9% 100 ml @ Per Protocol IV .Q0M RICKIE Rx#:[id number] ceFAZolin 2 gm In Sodium 50 Chloride 0.9% 50 ml @ 100 mls/hr IVPB Q8HR RICKIE Rx# :[id number] Output: Chest Tube Drainage 550 315 Chest Tube Left 380 205 Chest Tube Mediastinal 170 110 Drainage 70 55 233 Left Arm 0 10 0 Left Chest 50 Left Thigh 0 45 233 Medial Chest 20 Urine 1435 735 910 Estimated Blood Loss 1500 Other: Voiding Method Indwelling Catheter Indwelling Catheter Indwelling Catheter ABP, PAP, CO, CI - Last Documented Arterial Blood Pressure 80/42 Pulmonary Artery Pressure 28/10 Cardiac Output 6.4 Cardiac Index 3.1 - Labs CBC & Chem 7: 05/17/19 04:00 05/17/19 15:15 Labs: Abnormal Lab Results - Last 24 Hours (Table) 05/10/19 05/16/19 05/16/19 Range/Units 08:50 17:00 17:00 WBC 11.7 H (3.8-10.6) k/uL RBC 3.63 L (4.30-5.90) m/uL Hgb 11.1 L D (13.0-17.5) gm/dL Hct 32.3 L (39.0-53.0) % Plt Count 119 L (150-450) k/uL Neutrophils # 10.3 H (1.3-7.7) k/uL Lymphocytes # 0.5 L (1.0-4.8) k/uL PT (9.0-12.0) sec INR (<1.2) ABG pO2 (83-108) mmHg ABG Total CO2 (19-24) mmol/L ABG O2 Saturation (94-97) % Sodium (137-145) mmol/L Potassium (3.5-5.1) mmol/L Chloride 108 H (98-107) mmol/L Carbon Dioxide (22-30) mmol/L BUN (9-20) mg/dL Creatinine (0.66-1.25) mg/dL Glucose (74-99) mg/dL POC Glucose (mg/dL) (75-99) mg/dL Calcium (8.4-10.2) mg/dL Magnesium 2.9 H (1.6-2.3) mg/dL Total Bilirubin 1.7 H (0.2-1.3) mg/dL Alkaline Phosphatase 21 L (38-126) U/L Total Protein 5.3 L (6.3-8.2) g/dL Albumin 3.4 L (3.5-5.0) g/dL Crossmatch See Detail 05/16/19 05/16/19 05/16/19 Range/Units 17:00 17:25 18:05 WBC (3.8-10.6) k/uL RBC (4.30-5.90) m/uL Hgb (13.0-17.5) gm/dL Hct (39.0-53.0) % Plt Count (150-450) k/uL Neutrophils # (1.3-7.7) k/uL Lymphocytes # (1.0-4.8) k/uL PT 12.9 H (9.0-12.0) sec INR 1.3 H (<1.2) ABG pO2 230 H (83-108) mmHg ABG Total CO2 26 H (19-24) mmol/L ABG O2 Saturation 100.0 H (94-97) % Sodium (137-145) mmol/L Potassium (3.5-5.1) mmol/L Chloride (98-107) mmol/L Carbon Dioxide (22-30) mmol/L BUN (9-20) mg/dL Creatinine (0.66-1.25) mg/dL Glucose (74-99) mg/dL POC Glucose (mg/dL) 70 L (75-99) mg/dL Calcium (8.4-10.2) mg/dL Magnesium (1.6-2.3) mg/dL Total Bilirubin (0.2-1.3) mg/dL Alkaline Phosphatase (38-126) U/L Total Protein (6.3-8.2) g/dL Albumin (3.5-5.0) g/dL Crossmatch 05/16/19 05/16/19 05/16/19 Range/Units 19:56 19:57 21:07 WBC (3.8-10.6) k/uL RBC 3.61 L (4.30-5.90) m/uL Hgb 10.9 L (13.0-17.5) gm/dL Hct 31.9 L (39.0-53.0) % Plt Count 106 L (150-450) k/uL Neutrophils # 8.1 H (1.3-7.7) k/uL Lymphocytes # 0.3 L (1.0-4.8) k/uL PT (9.0-12.0) sec INR (<1.2) ABG pO2 (83-108) mmHg ABG Total CO2 (19-24) mmol/L ABG O2 Saturation (94-97) % Sodium (137-145) mmol/L Potassium (3.5-5.1) mmol/L Chloride (98-107) mmol/L Carbon Dioxide (22-30) mmol/L BUN (9-20) mg/dL Creatinine (0.66-1.25) mg/dL Glucose (74-99) mg/dL POC Glucose (mg/dL) 138 H 142 H (75-99) mg/dL Calcium (8.4-10.2) mg/dL Magnesium (1.6-2.3) mg/dL Total Bilirubin (0.2-1.3) mg/dL Alkaline Phosphatase (38-126) U/L Total Protein (6.3-8.2) g/dL Albumin (3.5-5.0) g/dL Crossmatch 05/16/19 05/16/19 05/16/19 Range/Units 21:55 22:15 22:56 WBC (3.8-10.6) k/uL RBC 3.60 L (4.30-5.90) m/uL Hgb 11.2 L (13.0-17.5) gm/dL Hct 31.7 L (39.0-53.0) % Plt Count 106 L (150-450) k/uL Neutrophils # 9.5 H (1.3-7.7) k/uL Lymphocytes # 0.3 L (1.0-4.8) k/uL PT (9.0-12.0) sec INR (<1.2) ABG pO2 (83-108) mmHg ABG Total CO2 (19-24) mmol/L ABG O2 Saturation (94-97) % Sodium (137-145) mmol/L Potassium (3.5-5.1) mmol/L Chloride (98-107) mmol/L Carbon Dioxide (22-30) mmol/L BUN (9-20) mg/dL Creatinine (0.66-1.25) mg/dL Glucose (74-99) mg/dL POC Glucose (mg/dL) 135 H 101 H (75-99) mg/dL Calcium (8.4-10.2) mg/dL Magnesium (1.6-2.3) mg/dL Total Bilirubin (0.2-1.3) mg/dL Alkaline Phosphatase (38-126) U/L Total Protein (6.3-8.2) g/dL Albumin (3.5-5.0) g/dL Crossmatch 05/16/19 05/17/19 05/17/19 Range/Units 23:53 01:03 02:04 WBC (3.8-10.6) k/uL RBC (4.30-5.90) m/uL Hgb (13.0-17.5) gm/dL Hct (39.0-53.0) % Plt Count (150-450) k/uL Neutrophils # (1.3-7.7) k/uL Lymphocytes # (1.0-4.8) k/uL PT (9.0-12.0) sec INR (<1.2) ABG pO2 (83-108) mmHg ABG Total CO2 (19-24) mmol/L ABG O2 Saturation (94-97) % Sodium (137-145) mmol/L Potassium (3.5-5.1) mmol/L Chloride (98-107) mmol/L Carbon Dioxide (22-30) mmol/L BUN (9-20) mg/dL Creatinine (0.66-1.25) mg/dL Glucose (74-99) mg/dL POC Glucose (mg/dL) 121 H 137 H 127 H (75-99) mg/dL Calcium (8.4-10.2) mg/dL Magnesium (1.6-2.3) mg/dL Total Bilirubin (0.2-1.3) mg/dL Alkaline Phosphatase (38-126) U/L Total Protein (6.3-8.2) g/dL Albumin (3.5-5.0) g/dL Crossmatch 05/17/19 05/17/19 05/17/19 Range/Units 03:05 04:00 04:00 WBC (3.8-10.6) k/uL RBC 3.34 L (4.30-5.90) m/uL Hgb 10.3 L (13.0-17.5) gm/dL Hct 29.8 L (39.0-53.0) % Plt Count 101 L (150-450) k/uL Neutrophils # 9.1 H (1.3-7.7) k/uL Lymphocytes # 0.4 L (1.0-4.8) k/uL PT (9.0-12.0) sec INR (<1.2) ABG pO2 (83-108) mmHg ABG Total CO2 (19-24) mmol/L ABG O2 Saturation (94-97) % Sodium 136 L (137-145) mmol/L Potassium 5.3 H (3.5-5.1) mmol/L Chloride 108 H (98-107) mmol/L Carbon Dioxide (22-30) mmol/L BUN 23 H (9-20) mg/dL Creatinine 1.32 H (0.66-1.25) mg/dL Glucose 119 H (74-99) mg/dL POC Glucose (mg/dL) 119 H (75-99) mg/dL Calcium 8.2 L (8.4-10.2) mg/dL Magnesium 2.4 H (1.6-2.3) mg/dL Total Bilirubin (0.2-1.3) mg/dL Alkaline Phosphatase 25 L (38-126) U/L Total Protein 5.5 L (6.3-8.2) g/dL Albumin (3.5-5.0) g/dL Crossmatch 05/17/19 05/17/19 05/17/19 Range/Units 04:06 04:58 06:09 WBC (3.8-10.6) k/uL RBC (4.30-5.90) m/uL Hgb (13.0-17.5) gm/dL Hct (39.0-53.0) % Plt Count (150-450) k/uL Neutrophils # (1.3-7.7) k/uL Lymphocytes # (1.0-4.8) k/uL PT (9.0-12.0) sec INR (<1.2) ABG pO2 (83-108) mmHg ABG Total CO2 (19-24) mmol/L ABG O2 Saturation (94-97) % Sodium (137-145) mmol/L Potassium (3.5-5.1) mmol/L Chloride (98-107) mmol/L Carbon Dioxide (22-30) mmol/L BUN (9-20) mg/dL Creatinine (0.66-1.25) mg/dL Glucose (74-99) mg/dL POC Glucose (mg/dL) 135 H 119 H 123 H (75-99) mg/dL Calcium (8.4-10.2) mg/dL Magnesium (1.6-2.3) mg/dL Total Bilirubin (0.2-1.3) mg/dL Alkaline Phosphatase (38-126) U/L Total Protein (6.3-8.2) g/dL Albumin (3.5-5.0) g/dL Crossmatch 05/17/19 05/17/19 05/17/19 Range/Units 07:19 08:50 10:00 WBC (3.8-10.6) k/uL RBC (4.30-5.90) m/uL Hgb (13.0-17.5) gm/dL Hct (39.0-53.0) % Plt Count (150-450) k/uL Neutrophils # (1.3-7.7) k/uL Lymphocytes # (1.0-4.8) k/uL PT (9.0-12.0) sec INR (<1.2) ABG pO2 (83-108) mmHg ABG Total CO2 (19-24) mmol/L ABG O2 Saturation (94-97) % Sodium (137-145) mmol/L Potassium (3.5-5.1) mmol/L Chloride (98-107) mmol/L Carbon Dioxide (22-30) mmol/L BUN (9-20) mg/dL Creatinine (0.66-1.25) mg/dL Glucose (74-99) mg/dL POC Glucose (mg/dL) 136 H 152 H 161 H (75-99) mg/dL Calcium (8.4-10.2) mg/dL Magnesium (1.6-2.3) mg/dL Total Bilirubin (0.2-1.3) mg/dL Alkaline Phosphatase (38-126) U/L Total Protein (6.3-8.2) g/dL Albumin (3.5-5.0) g/dL Crossmatch 05/17/19 05/17/19 05/17/19 Range/Units 11:48 13:52 15:15 WBC (3.8-10.6) k/uL RBC (4.30-5.90) m/uL Hgb (13.0-17.5) gm/dL Hct (39.0-53.0) % Plt Count (150-450) k/uL Neutrophils # (1.3-7.7) k/uL Lymphocytes # (1.0-4.8) k/uL PT (9.0-12.0) sec INR (<1.2) ABG pO2 (83-108) mmHg ABG Total CO2 (19-24) mmol/L ABG O2 Saturation (94-97) % Sodium (137-145) mmol/L Potassium (3.5-5.1) mmol/L Chloride (98-107) mmol/L Carbon Dioxide 21 L (22-30) mmol/L BUN 25 H (9-20) mg/dL Creatinine 1.40 H (0.66-1.25) mg/dL Glucose 113 H (74-99) mg/dL POC Glucose (mg/dL) 163 H 146 H (75-99) mg/dL Calcium (8.4-10.2) mg/dL Magnesium (1.6-2.3) mg/dL Total Bilirubin (0.2-1.3) mg/dL Alkaline Phosphatase (38-126) U/L Total Protein (6.3-8.2) g/dL Albumin (3.5-5.0) g/dL Crossmatch 05/17/19 Range/Units 15:22 WBC (3.8-10.6) k/uL RBC (4.30-5.90) m/uL Hgb (13.0-17.5) gm/dL Hct (39.0-53.0) % Plt Count (150-450) k/uL Neutrophils # (1.3-7.7) k/uL Lymphocytes # (1.0-4.8) k/uL PT (9.0-12.0) sec INR (<1.2) ABG pO2 (83-108) mmHg ABG Total CO2 (19-24) mmol/L ABG O2 Saturation (94-97) % Sodium (137-145) mmol/L Potassium (3.5-5.1) mmol/L Chloride (98-107) mmol/L Carbon Dioxide (22-30) mmol/L BUN (9-20) mg/dL Creatinine (0.66-1.25) mg/dL Glucose (74-99) mg/dL POC Glucose (mg/dL) 116 H (75-99) mg/dL Calcium (8.4-10.2) mg/dL Magnesium (1.6-2.3) mg/dL Total Bilirubin (0.2-1.3) mg/dL Alkaline Phosphatase (38-126) U/L Total Protein (6.3-8.2) g/dL Albumin (3.5-5.0) g/dL Crossmatch
[2019-05-17 16:58] LABS: Glucose,Whole Blood 115 mg/dL (75-99)
[2019-05-17 18:47] LABS: Glucose,Whole Blood 122 mg/dL (75-99)
[2019-05-17] MEDS: TAMSULOSIN 0.4 MG CAP.ER.24H PO SCH (19:28)
[2019-05-17 20:25] LABS: Glucose,Whole Blood 154 mg/dL (75-99)
[2019-05-17] MEDS: SENNOSIDES-DOCUSATE SODIUM 1 EACH TAB PO SCH (20:51)
[2019-05-17 21:44] LABS: Glucose,Whole Blood 152 mg/dL (75-99)
[2019-05-18 00:07] LABS: Glucose,Whole Blood 104 mg/dL (75-99)
[2019-05-18] MEDS: HEPARIN SODIUM,PORCINE 5,000 UNIT/ML 1 ML VIAL SQ SCH ×3 (00:07→16:14)
[2019-05-18] MEDS: traMADol 50 MG TAB PO PRN ×4 (01:29→19:08)
[2019-05-18 01:36] LABS: Glucose,Whole Blood 90 mg/dL (75-99)
[2019-05-18] MEDS: fentaNYL (PF) 50 MCG/ML 2 ML AMP IVP PRN (02:57)
[2019-05-18 04:28] LABS: Glucose,Whole Blood 115 mg/dL (75-99)
[2019-05-18 04:45] LABS: Basophils % (A) 0 %; Eosinophils % (A) 0 %; HCT 26.3 % (39.0-53.0); HGB 9.3 gm/dL (13.0-17.5); Lymphocytes # (A) 0.8 k/uL (1.0-4.8); Lymphocytes % (A) 7 %; MCH 31.3 pg (25.0-35.0); MCHC 35.2 g/dL (31.0-37.0); MCV 89.1 fL (80.0-100.0); Mean Platelet Volume 8.2; Monocytes # (A) 0.6 k/uL (0-1.0); Monocytes % (A) 5 %; Neutrophils # (A) 9.8 k/uL (1.3-7.7); Neutrophils % (A) 86 %; Platelet Count 115 k/uL (150-450); RBC 2.95 m/uL (4.30-5.90); RDW 14.6 % (11.5-15.5); WBC 11.4 k/uL (3.8-10.6)
[2019-05-18 04:56] LABS: Ionized Calcium 4.9 mg/dL (4.5-5.3)
[2019-05-18 05:08] LABS: Albumin 3.7 g/dL (3.5-5.0); Calcium 8.6 mg/dL (8.4-10.2); Potassium 4.3 mmol/L (3.5-5.1); Total Protein 5.8 g/dL (6.3-8.2)
[2019-05-18 06:43] LABS: Glucose,Whole Blood 117 mg/dL (75-99)
[2019-05-18] MEDS: PANTOPRAZOLE 40 MG TABLET PO SCH (06:52)
[2019-05-18] MEDS: ACETAMINOPHEN IV (For NPO) 1,000 MG in EMPTY BAG 1 BAG IVPB SCH ×3 (07:09→18:12)
[2019-05-18] MEDS: IPRATROPIUM-ALBUTEROL 3 ML NEB INHALATION SCH ×4 (07:21→19:30)
--- NOTE | 2019-05-18 07:47 | P.PN ---
Subjective Progress Note Date: 05/18/19 Principal diagnosis: Diffuse triple vessel coronary artery disease with totally occluded right coronary artery, preserved left ventricular function. 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 Endoscopic harvesting of the left radial artery. Endoscopic harvesting of the left greater saphenous vein from the groin to the mid lower level. Intraoperative transesophageal echocardiogram and epi-aortic scanning. Intraoperative graft flow measurements using the [employer] system. Postoperative acute blood loss anemia, expected outcome of surgery secondary to hemodilution and cardiopulmonary bypass pump Postoperative thrombocytopenia, expected outcome of surgery secondary to hemodilution Postoperative hypotension, expected Postoperative acute on chronic kidney disease, expected, likely pre-renal The patient is currently sitting up in a recliner in no acute distress in the intensive care unit. He continues to complain of postoperative surgical type pain which he states is better controlled with current medication regimen after adding in IV fentanyl for breakthrough pain, denies shortness of breath. Currently in normal sinus rhythm and hemodynamically stable on no inotropes or pressors, was on dopamine yesterday/last night for hypotension, currently off. Cordis, mediastinal and left pleural chest tubes remain. CATRACHITA drains present to left [facility] site. He did ambulate into the hallway with assist yesterday. No other new concerns. Objective - Vital Signs Vital signs: Vital Signs Temp 97.9 F 05/18/19 04:00 Pulse 80 05/18/19 06:00 Resp 16 05/18/19 06:00 BP 110/66 05/18/19 06:00 Pulse Ox 96 05/18/19 06:00 Intake & Output 05/17/19 05/17/19 05/18/19 06:59 18:59 06:59 Intake Total 4484.803 7597.512 693.556 Output Total 1340 1628 2295 Balance 104.279 47.512 -1601.444 Weight 95.7 kg 95.7 kg 98.4 kg Intake: IV 1255.5 1637.0 429 0.9 550 440 360 Albumin Human 5% 250 ml 250 1000 In Empty Bag 1 bag @ 250 mls/hr IVPB Q1HR PRN Rx#: [id number] CO/CI 340 110 Nitroglycerine 16.5 3.0 Pressure Bags 99 84 69 Intake, IV Titration 188.779 38.512 164.556 Amount ACETAMINOPHEN IV (For NPO 100 ) 1,000 mg In Empty Bag 1 bag @ 400 mls/hr IVPB Q6HR [facility] Rx#:[id number] DOPamine DRIP 800 mg In 5.233 145.315 Dextrose/Water 1 250ml. bag @ 2 MCG/KG/MIN 3.589 mls/hr IV .Q24H [facility] Rx#: [id number] Dexmedetomidine/0.9% NaCl 33.105 (Pmx) 400 mcg In Empty Bag 1 bag @ Titrate IV . Q0M [facility] Rx#:[id number] Insulin Regular 100 unit 5.674 33.279 19.241 In Sodium Chloride 0.9% 100 ml @ Per Protocol IV .Q0M [facility] Rx#:[id number] ceFAZolin 2 gm In Sodium 50 Chloride 0.9% 50 ml @ 100 mls/hr IVPB Q8HR RICKIE Rx# :[id number] Oral 100 Output: Chest Tube Drainage 550 315 720 Chest Tube Left 380 205 470 Chest Tube Mediastinal 170 110 250 Drainage 55 233 30 Left Arm 10 0 Left Thigh 45 233 30 Urine 735 1080 1545 Other: Voiding Method Indwelling Catheter Indwelling Catheter Indwelling Catheter ABP, PAP, CO, CI - Last Documented Arterial Blood Pressure 107/55 Pulmonary Artery Pressure 28/10 Cardiac Output 8.6 Cardiac Index 4.2 - Constitutional General appearance: Present: cooperative, no acute distress, obese - Respiratory Details: Lungs sounds diminished bilaterally. Respirations even, nonlabored. Currently on 2 L nasal cannula with oxygen saturation 94%. Only able to achieve 500 mL this morning on his incentive spirometry. Mediastinal chest tube to continuous wall suction, 60 mL serosanguineous drainage overnight, 200 mL in the last 24 hours. Left pleural chest tube to continuous wall suction, 110 mL serosanguineous drainage overnight, 400 mL in the last 24 hours. No air leaks present. - Cardiovascular Details: S1, S2 present. Regular rate and rhythm, sinus rhythm on telemetry. Sternum stable. A/V epicardial pacemaker wires present, grounded. Palpable peripheral pulses bilaterally. Trace bilateral upper extremity edema present. No calf pain or tenderness noted. Right internal jugular Cordis, right brachial arterial line present. Heart hugger in place with patient demonstrating appr opriate use. Antiembolism stockings, SCDs present. - Gastrointestinal Gastrointestinal Comment(s): Abdomen soft, nontender, nondistended. Active bowel sounds present 4 quadrants. Tolerating diet. Positive flatus, negative bowel movement since surgery - Genitourinary Genitourinary Comment(s): Medina discontinued this morning. Output 100-125 mL/h overnight. - Integumentary Integumentary Comment(s): Skin is warm and dry with evidence of good perfusion. Anterior chest incision well approximated and covered with dry intact dressing. 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 Left lower extremity EVH site well approximated, CATRACHITA drain present with 30 mL serosanguinous fluid in the last 24 hours. - Neurologic Neurologic: Present: CNII-XII intact - Musculoskeletal Musculoskeletal: Present: gait normal, generalized weakness, strength equal bilaterally - Psychiatric Psychiatric: Present: A&O x's 3, appropriate affect, intact judgment & insight - Allied health notes Allied health notes reviewed: nursing - Labs CBC & Chem 7: 05/18/19 04:15 05/18/19 04:15 Labs: Abnormal Lab Results - Last 24 Hours (Table) 05/17/19 05/17/19 05/17/19 Range/Units 07:19 08:50 10:00 WBC (3.8-10.6) k/uL RBC (4.30-5.90) m/uL Hgb (13.0-17.5) gm/dL Hct (39.0-53.0) % Plt Count (150-450) k/uL Neutrophils # (1.3-7.7) k/uL Lymphocytes # (1.0-4.8) k/uL Carbon Dioxide (22-30) mmol/L BUN (9-20) mg/dL Creatinine (0.66-1.25) mg/dL Glucose (74-99) mg/dL POC Glucose (mg/dL) 136 H 152 H 161 H (75-99) mg/dL Alkaline Phosphatase (38-126) U/L Total Protein (6.3-8.2) g/dL 05/17/19 05/17/19 05/17/19 Range/Units 11:48 13:52 15:15 WBC (3.8-10.6) k/uL RBC (4.30-5.90) m/uL Hgb (13.0-17.5) gm/dL Hct (39.0-53.0) % Plt Count (150-450) k/uL Neutrophils # (1.3-7.7) k/uL Lymphocytes # (1.0-4.8) k/uL Carbon Dioxide 21 L (22-30) mmol/L BUN 25 H (9-20) mg/dL Creatinine 1.40 H (0.66-1.25) mg/dL Glucose 113 H (74-99) mg/dL POC Glucose (mg/dL) 163 H 146 H (75-99) mg/dL Alkaline Phosphatase (38-126) U/L Total Protein (6.3-8.2) g/dL 05/17/19 05/17/19 05/17/19 Range/Units 15:22 16:57 18:45 WBC (3.8-10.6) k/uL RBC (4.30-5.90) m/uL Hgb (13.0-17.5) gm/dL Hct (39.0-53.0) % Plt Count (150-450) k/uL Neutrophils # (1.3-7.7) k/uL Lymphocytes # (1.0-4.8) k/uL Carbon Dioxide (22-30) mmol/L BUN (9-20) mg/dL Creatinine (0.66-1.25) mg/dL Glucose (74-99) mg/dL POC Glucose (mg/dL) 116 H 115 H 122 H (75-99) mg/dL Alkaline Phosphatase (38-126) U/L Total Protein (6.3-8.2) g/dL 05/17/19 05/17/19 05/18/19 Range/Units 20:24 21:43 00:05 WBC (3.8-10.6) k/uL RBC (4.30-5.90) m/uL Hgb (13.0-17.5) gm/dL Hct (39.0-53.0) % Plt Count (150-450) k/uL Neutrophils # (1.3-7.7) k/uL Lymphocytes # (1.0-4.8) k/uL Carbon Dioxide (22-30) mmol/L BUN (9-20) mg/dL Creatinine (0.66-1.25) mg/dL Glucose (74-99) mg/dL POC Glucose (mg/dL) 154 H 152 H 104 H (75-99) mg/dL Alkaline Phosphatase (38-126) U/L Total Protein (6.3-8.2) g/dL 05/18/19 05/18/19 05/18/19 Range/Units 04:15 04:15 04:26 WBC 11.4 H (3.8-10.6) k/uL RBC 2.95 L (4.30-5.90) m/uL Hgb 9.3 L (13.0-17.5) gm/dL Hct 26.3 L (39.0-53.0) % Plt Count 115 L (150-450) k/uL Neutrophils # 9.8 H (1.3-7.7) k/uL Lymphocytes # 0.8 L (1.0-4.8) k/uL Carbon Dioxide (22-30) mmol/L BUN 26 H (9-20) mg/dL Creatinine 1.31 H (0.66-1.25) mg/dL Glucose 105 H (74-99) mg/dL POC Glucose (mg/dL) 115 H (75-99) mg/dL Alkaline Phosphatase 33 L (38-126) U/L Total Protein 5.8 L (6.3-8.2) g/dL 05/18/19 Range/Units 06:41 WBC (3.8-10.6) k/uL RBC (4.30-5.90) m/uL Hgb (13.0-17.5) gm/dL Hct (39.0-53.0) % Plt Count (150-450) k/uL Neutrophils # (1.3-7.7) k/uL Lymphocytes # (1.0-4.8) k/uL Carbon Dioxide (22-30) mmol/L BUN (9-20) mg/dL Creatinine (0.66-1.25) mg/dL Glucose (74-99) mg/dL POC Glucose (mg/dL) 117 H (75-99) mg/dL Alkaline Phosphatase (38-126) U/L Total Protein (6.3-8.2) g/dL - Imaging and Cardiology Chest x-ray: image reviewed Assessment and Plan Assessment: 1. Diffuse triple-vessel coronary artery disease with totally occluded right coronary artery, status post four-vessel CABG 2. History of coronary artery disease with stent placement in 2013 3. Stroke in September 2016 with left vertebral artery stenosis 4. Single kidney, chronic kidney disease stage III 5. Tobacco abuse with recent cessation, preoperative FEV1 103% of predicted 6. Obstructive sleep apnea without CPAP use, status post UP3 surgery 7. Type 2 diabetes mellitus with preoperative hemoglobin A1c 6.2% 8. Hypertension 9. Hyperlipidemia 10. May-Thurner syndrome status post recent stenting of bilateral iliac veins 11. Remote history of pneumonia 12. Transitional cell carcinoma 19 years ago 13. Syncope in November 2018 14. Charcot foot with ambulation with a cane 15. Family history of premature coronary artery disease 16. Postoperative acute blood loss anemia and postoperative thrombocytopenia 17. Postoperative hypotension 18. Postoperative acute on chronic kidney disease Plan: 1. Continue aspirin, statin, Plavix, beta myriam therapy. Will increase beta myriam therapy as tolerated 2. Will start oral Cardizem for radial artery spasm with hold parameters 3. Wean O2 as tolerated. Encourage incentive spirometry use 10 times every hour while awake 4. Encourage continued smoking cessation. Bronchodilators per pulmonology 5. Increase activity, ambulate as tolerated. Patient will need cane to be brought from home. PT/OT/cardiac rehab following. 6. Will discontinue Cordis 7. Will monitor daily labs and x-rays. Electrolyte replacement per protocol. No transfusion 8. Pain control with current medication regimen. No Toradol secondary to solitary kidney. 9. Nephrology consulted, appretiate recommendations. Avoid nephrotoxic agents 10. Insulin management per primary care service 11. Will discontinue mediastinal chest tubes, keep left pleural chest tube for another 24 hours 12. Medina discontinued. May bladder scan and straight cath for > 300 mL residual. Continue Flomax 13. Will place transfer orders for 3S cardiac stepdown unit. May transfer when bed available 14. Discharge planning in progress. Anticipate DC to home with home care vs. IPR in 48-72 hours, depending on progress. Dr. Finley consulted 15. More recommendations to follow based on patient's progress Mediastinal chest tubes discontinued without incident, bilateral breath sounds equal, patient tolerated well. Left EVH CATRACHITA drain also discontinued. Time with Patient: Greater than 30
[2019-05-18] MEDS ORDERED: DILTIAZEM ORAL 30 MG TAB PO SCH (08:00)
[2019-05-18 08:02] LABS: Glucose,Whole Blood 205 mg/dL (75-99)
--- NOTE | 2019-05-18 08:26 | XR ---
EXAMINATION TYPE: XR chest 1V portable DATE OF EXAM: 05/18/2019 COMPARISON: Prior chest x-ray 05/17/2019 HISTORY: Postop cardiac surgery TECHNIQUE: Single frontal view of the chest is obtained. FINDINGS: Patient is post median sternotomy and the heart remains enlarged. Left-sided chest tube re filiberto in place. Central venous catheter has been removed, right jugular central venous sheath remains in place. No evident pneumothorax. Bibasilar increased density persists. Aorta appears dense and ect atic. Median sternal drain remains in place. Interstitium mildly increased. IMPRESSION: There may be a component of volume overload. Correlate for congestive heart failure, the re may be basilar effusions and associated atelectasis.
--- NOTE | 2019-05-18 08:50 | P.PN ---
Subjective Patient is seen in follow-up for acute kidney injury on chronic any disease. Renal function is a little better. Medina catheter discontinued this morning. He is voiding on his own. Oral intake is fair. No vomiting or diarrhea. Vital signs are stable. General: The patient appeared well nourished and normally developed. HEENT: Head exam is unremarkable. Neck is without jugular venous distension. LUNGS: Breath sounds decreased. Chest tube noted. HEART: Rate and Rhythm are regular. First and second heart sounds normal. No murmurs, rubs or gallops. ABDOMEN: Abdominal exam reveals normal bowel sounds. Non-tender and non- distended. No evidence of peritonitis. EXTREMITITES: No clubbing, cyanosis, or edema. Objective - Vital Signs Vital signs: Vital Signs Temp 97.9 F 05/18/19 04:00 Pulse 68 05/18/19 07:34 Resp 21 05/18/19 07:00 BP 97/57 05/18/19 07:00 Pulse Ox 94 L 05/18/19 07:00 Intake & Output 05/17/19 05/18/19 05/18/19 18:59 06:59 18:59 Intake Total 1675.512 693.556 36 Output Total 1628 2295 100 Balance 47.512 -1601.444 -64 Weight 95.7 kg 98.4 kg Intake: IV 1637.0 429 36 0.9 440 360 30 Albumin Human 5% 250 ml 1000 In Empty Bag 1 bag @ 250 mls/hr IVPB Q1HR PRN Rx#: [id number] CO/CI 110 Nitroglycerine 3.0 Pressure Bags 84 69 6 Intake, IV Titration 38.512 164.556 0 Amount DOPamine DRIP 800 mg In 5.233 145.315 Dextrose/Water 1 250ml. bag @ 2 MCG/KG/MIN 3.589 mls/hr IV .Q24H [facility] Rx#: [id number] Insulin Regular 100 unit 33.279 19.241 0 In Sodium Chloride 0.9% 100 ml @ Per Protocol IV .Q0M [facility] Rx#:[id number] Oral 100 Output: Chest Tube Drainage 315 720 100 Chest Tube Left 205 470 70 Chest Tube Mediastinal 110 250 30 Drainage 233 30 Left Arm 0 Left Thigh 233 30 Urine 1080 1545 Other: Voiding Method Indwelling Catheter Indwelling Catheter ABP, PAP, CO, CI - Last Documented Arterial Blood Pressure 107/55 Pulmonary Artery Pressure 28/10 Cardiac Output 8.6 Cardiac Index 4.2 - Labs CBC & Chem 7: 05/18/19 04:15 05/18/19 04:15 Labs: Abnormal Lab Results - Last 24 Hours (Table) 05/17/19 05/17/19 05/17/19 Range/Units 08:50 10:00 11:48 WBC (3.8-10.6) k/uL RBC (4.30-5.90) m/uL Hgb (13.0-17.5) gm/dL Hct (39.0-53.0) % Plt Count (150-450) k/uL Neutrophils # (1.3-7.7) k/uL Lymphocytes # (1.0-4.8) k/uL Carbon Dioxide (22-30) mmol/L BUN (9-20) mg/dL Creatinine (0.66-1.25) mg/dL Glucose (74-99) mg/dL POC Glucose (mg/dL) 152 H 161 H 163 H (75-99) mg/dL Alkaline Phosphatase (38-126) U/L Total Protein (6.3-8.2) g/dL 05/17/19 05/17/19 05/17/19 Range/Units 13:52 15:15 15:22 WBC (3.8-10.6) k/uL RBC (4.30-5.90) m/uL Hgb (13.0-17.5) gm/dL Hct (39.0-53.0) % Plt Count (150-450) k/uL Neutrophils # (1.3-7.7) k/uL Lymphocytes # (1.0-4.8) k/uL Carbon Dioxide 21 L (22-30) mmol/L BUN 25 H (9-20) mg/dL Creatinine 1.40 H (0.66-1.25) mg/dL Glucose 113 H (74-99) mg/dL POC Glucose (mg/dL) 146 H 116 H (75-99) mg/dL Alkaline Phosphatase (38-126) U/L Total Protein (6.3-8.2) g/dL 05/17/19 05/17/19 05/17/19 Range/Units 16:57 18:45 20:24 WBC (3.8-10.6) k/uL RBC (4.30-5.90) m/uL Hgb (13.0-17.5) gm/dL Hct (39.0-53.0) % Plt Count (150-450) k/uL Neutrophils # (1.3-7.7) k/uL Lymphocytes # (1.0-4.8) k/uL Carbon Dioxide (22-30) mmol/L BUN (9-20) mg/dL Creatinine (0.66-1.25) mg/dL Glucose (74-99) mg/dL POC Glucose (mg/dL) 115 H 122 H 154 H (75-99) mg/dL Alkaline Phosphatase (38-126) U/L Total Protein (6.3-8.2) g/dL 05/17/19 05/18/19 05/18/19 Range/Units 21:43 00:05 04:15 WBC 11.4 H (3.8-10.6) k/uL RBC 2.95 L (4.30-5.90) m/uL Hgb 9.3 L (13.0-17.5) gm/dL Hct 26.3 L (39.0-53.0) % Plt Count 115 L (150-450) k/uL Neutrophils # 9.8 H (1.3-7.7) k/uL Lymphocytes # 0.8 L (1.0-4.8) k/uL Carbon Dioxide (22-30) mmol/L BUN (9-20) mg/dL Creatinine (0.66-1.25) mg/dL Glucose (74-99) mg/dL POC Glucose (mg/dL) 152 H 104 H (75-99) mg/dL Alkaline Phosphatase (38-126) U/L Total Protein (6.3-8.2) g/dL 05/18/19 05/18/19 05/18/19 Range/Units 04:15 04:26 06:41 WBC (3.8-10.6) k/uL RBC (4.30-5.90) m/uL Hgb (13.0-17.5) gm/dL Hct (39.0-53.0) % Plt Count (150-450) k/uL Neutrophils # (1.3-7.7) k/uL Lymphocytes # (1.0-4.8) k/uL Carbon Dioxide (22-30) mmol/L BUN 26 H (9-20) mg/dL Creatinine 1.31 H (0.66-1.25) mg/dL Glucose 105 H (74-99) mg/dL POC Glucose (mg/dL) 115 H 117 H (75-99) mg/dL Alkaline Phosphatase 33 L (38-126) U/L Total Protein 5.8 L (6.3-8.2) g/dL 05/18/19 Range/Units 08:00 WBC (3.8-10.6) k/uL RBC (4.30-5.90) m/uL Hgb (13.0-17.5) gm/dL Hct (39.0-53.0) % Plt Count (150-450) k/uL Neutrophils # (1.3-7.7) k/uL Lymphocytes # (1.0-4.8) k/uL Carbon Dioxide (22-30) mmol/L BUN (9-20) mg/dL Creatinine (0.66-1.25) mg/dL Glucose (74-99) mg/dL POC Glucose (mg/dL) 205 H (75-99) mg/dL Alkaline Phosphatase (38-126) U/L Total Protein (6.3-8.2) g/dL Assessment and Plan Plan: Assessment: 1. Acute kidney injury mostly prerenal secondary to hemodynamic instability. Renal function stable. 2. Chronic kidney disease stage III secondary to solitary right kidney. Baseline creatinine in the range of 1-1.2. 3. Coronary artery disease status post four-vessel bypass in 05/16/2019. 4. Mild hyperkalemia secondary to acute kidney injury. Improved. 5. Diabetes mellitus. 6. 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 Plan: Encourage oral intake. Avoid nephrotoxins. Dopamine discontinued this morning. Continue to monitor renal function and urine output.
[2019-05-18] MEDS: CLOPIDOGREL 75 MG TAB PO SCH (09:08)
[2019-05-18] MEDS: ATORVASTATIN 40 MG TAB PO SCH (09:08)
[2019-05-18] MEDS: FLUTICASONE 50MCG/SPRAY NASAL 16GM EA NOSTRIL SCH (09:08)
[2019-05-18] MEDS: ASPIRIN 325 MG TAB PO SCH (09:08)
[2019-05-18] MEDS: METOPROLOL TARTRATE 12.5 MG TAB PO SCH ×2 (09:08→22:03)
[2019-05-18] MEDS: GABAPENTIN 300 MG CAP PO SCH ×2 (09:09→22:03)
--- NOTE | 2019-05-18 09:20 | P.PN ---
Subjective Progress Note Date: 05/18/19 Principal diagnosis: Triple-vessel coronary artery disease status post bypass grafting On 05/18/2019 patient seen in follow-up in the intensive care unit, his postoperative day 3 status post four-vessel coronary artery bypass grafting with MCRAE to LAD, left radial to the first OM, reverse SVG to OM 2 reverse SVG to the RCA. Patient is doing well, although complaining of some pain incisional site, but does not appear to be in any distress, and appears to be somewhat sleepy but arouses easily. Denies any difficulty breathing, he is on 2 L of oxygen with a pulse ox of 94%, no fever chills, hemodynamically stable, 0.9 normal saline at a rate of 30 ML per hour, no vasoactive, no other drips. His mediastinal chest tube has been discontinued, left chest tube remains in place, and there has been 675 ML of output in last 24 hours. Chest tube will remain in place for another [address] surgery, lung sounds are clear, diminished at the bases, ISS effort is 1000 mL today. He has been tolerating ambulation. Today's chest x- ray shows a component of volume overload, pleural effusions and associated atelectasis. today's labs have been reviewed, blood cell count of 11.4, hemoglobin of 9.3, electrolytes are within normal limits, slight improvement of patient's renal profile, BUN is 26 and creatinine is 1.31. Patient has mild generalized edema, patient is diuresing, and he is in -1500 mL fluid balance over the last 24 hours Objective - Vital Signs Vital signs: Vital Signs Temp 97.9 F 05/18/19 04:00 Pulse 68 05/18/19 07:34 Resp 21 05/18/19 07:00 BP 97/57 05/18/19 07:00 Pulse Ox 94 L 05/18/19 07:00 Intake & Output 05/17/19 05/18/19 05/18/19 18:59 06:59 18:59 Intake Total 1675.512 693.556 36 Output Total 1628 2295 100 Balance 47.512 -1601.444 -64 Weight 95.7 kg 98.4 kg Intake: IV 1637.0 429 36 0.9 440 360 30 Albumin Human 5% 250 ml 1000 In Empty Bag 1 bag @ 250 mls/hr IVPB Q1HR PRN Rx#: [id number] CO/CI 110 Nitroglycerine 3.0 Pressure Bags 84 69 6 Intake, IV Titration 38.512 164.556 0 Amount DOPamine DRIP 800 mg In 5.233 145.315 Dextrose/Water 1 250ml. bag @ 2 MCG/KG/MIN 3.589 mls/hr IV .Q24H [facility] Rx#: [id number] Insulin Regular 100 unit 33.279 19.241 0 In Sodium Chloride 0.9% 100 ml @ Per Protocol IV .Q0M [facility] Rx#:[id number] Oral 100 Output: Chest Tube Drainage 315 720 100 Chest Tube Left 205 470 70 Chest Tube Mediastinal 110 250 30 Drainage 233 30 Left Arm 0 Left Thigh 233 30 Urine 1080 1545 Other: Voiding Method Indwelling Catheter Indwelling Catheter ABP, PAP, CO, CI - Last Documented Arterial Blood Pressure 107/55 Pulmonary Artery Pressure 28/10 Cardiac Output 8.6 Cardiac Index 4.2 - Exam GENERAL EXAM: Alert, very pleasant, 63-year-old white male was of oxygen with a pulse ox of 96%, comfortable in no apparent distress. HEAD: Normocephalic/atraumatic. EYES: Normal reaction of pupils, equal size. Conjunctiva pink, sclera white. NOSE: Clear with pink turbinates. THROAT: No erythema or exudates. NECK: No masses, no JVD, no thyroid enlargement, no adenopathy. CHEST: No chest wall deformity. Symmetrical expansion. Midsternal incision is clean dry and intact, chest tube sites clean dry and intact, pacemaker wires are grounded. Mediastinal chest tube has been removed, left chest tube is in place with serosanguineous output no air leak LUNGS: Equal air entry with no crackles, wheeze, rhonchi or dullness. CVS: Regular rate and rhythm, normal S1 and S2, no gallops, no murmurs, no rubs ABDOMEN: Soft, nontender. No hepatosplenomegaly, normal bowel sounds, no guarding or rigidity. EXTREMITIES: No clubbing, no edema, no cyanosis, 2+ pulses and upper and lower extremities. Left leg incisions clean dry and intact MUSCULOSKELETAL: Muscle strength and tone normal. SPINE: No scoliosis or deformity SKIN: No rashes, CENTRAL NERVOUS SYSTEM: Alert and oriented -3. No focal deficits, tone is normal in all 4 extremities. PSYCHIATRIC: Alert and oriented -3. Appropriate affect. Intact judgment and insight. - Labs CBC & Chem 7: 05/18/19 04:15 05/18/19 04:15 Labs: Abnormal Lab Results - Last 24 Hours (Table) 05/17/19 05/17/19 05/17/19 Range/Units 10:00 11:48 13:52 WBC (3.8-10.6) k/uL RBC (4.30-5.90) m/uL Hgb (13.0-17.5) gm/dL Hct (39.0-53.0) % Plt Count (150-450) k/uL Neutrophils # (1.3-7.7) k/uL Lymphocytes # (1.0-4.8) k/uL Carbon Dioxide (22-30) mmol/L BUN (9-20) mg/dL Creatinine (0.66-1.25) mg/dL Glucose (74-99) mg/dL POC Glucose (mg/dL) 161 H 163 H 146 H (75-99) mg/dL Alkaline Phosphatase (38-126) U/L Total Protein (6.3-8.2) g/dL 05/17/19 05/17/19 05/17/19 Range/Units 15:15 15:22 16:57 WBC (3.8-10.6) k/uL RBC (4.30-5.90) m/uL Hgb (13.0-17.5) gm/dL Hct (39.0-53.0) % Plt Count (150-450) k/uL Neutrophils # (1.3-7.7) k/uL Lymphocytes # (1.0-4.8) k/uL Carbon Dioxide 21 L (22-30) mmol/L BUN 25 H (9-20) mg/dL Creatinine 1.40 H (0.66-1.25) mg/dL Glucose 113 H (74-99) mg/dL POC Glucose (mg/dL) 116 H 115 H (75-99) mg/dL Alkaline Phosphatase (38-126) U/L Total Protein (6.3-8.2) g/dL 05/17/19 05/17/19 05/17/19 Range/Units 18:45 20:24 21:43 WBC (3.8-10.6) k/uL RBC (4.30-5.90) m/uL Hgb (13.0-17.5) gm/dL Hct (39.0-53.0) % Plt Count (150-450) k/uL Neutrophils # (1.3-7.7) k/uL Lymphocytes # (1.0-4.8) k/uL Carbon Dioxide (22-30) mmol/L BUN (9-20) mg/dL Creatinine (0.66-1.25) mg/dL Glucose (74-99) mg/dL POC Glucose (mg/dL) 122 H 154 H 152 H (75-99) mg/dL Alkaline Phosphatase (38-126) U/L Total Protein (6.3-8.2) g/dL 05/18/19 05/18/19 05/18/19 Range/Units 00:05 04:15 04:15 WBC 11.4 H (3.8-10.6) k/uL RBC 2.95 L (4.30-5.90) m/uL Hgb 9.3 L (13.0-17.5) gm/dL Hct 26.3 L (39.0-53.0) % Plt Count 115 L (150-450) k/uL Neutrophils # 9.8 H (1.3-7.7) k/uL Lymphocytes # 0.8 L (1.0-4.8) k/uL Carbon Dioxide (22-30) mmol/L BUN 26 H (9-20) mg/dL Creatinine 1.31 H (0.66-1.25) mg/dL Glucose 105 H (74-99) mg/dL POC Glucose (mg/dL) 104 H (75-99) mg/dL Alkaline Phosphatase 33 L (38-126) U/L Total Protein 5.8 L (6.3-8.2) g/dL 05/18/19 05/18/19 05/18/19 Range/Units 04:26 06:41 08:00 WBC (3.8-10.6) k/uL RBC (4.30-5.90) m/uL Hgb (13.0-17.5) gm/dL Hct (39.0-53.0) % Plt Count (150-450) k/uL Neutrophils # (1.3-7.7) k/uL Lymphocytes # (1.0-4.8) k/uL Carbon Dioxide (22-30) mmol/L BUN (9-20) mg/dL Creatinine (0.66-1.25) mg/dL Glucose (74-99) mg/dL POC Glucose (mg/dL) 115 H 117 H 205 H (75-99) mg/dL Alkaline Phosphatase (38-126) U/L Total Protein (6.3-8.2) g/dL Assessment and Plan Plan: Assessment: #1. Triple-vessel coronary artery disease status post four-vessel coronary artery bypass grafting postoperative day 3 #2. Routine postoperative ventilator management with extubation in less than 7 hours of OR exit time #3. History of coronary artery disease #4. Chronic kidney disease stage III #5. Diabetes mellitus type II #6. Hypertension #7. Hyperlipidemia #8. History of transitional cell carcinoma status post nephrectomy #9. History of benign prostatic hypertrophy #10. History of TIA #11. May-Thurner syndrome status post recent stenting of bilateral iliac veins #12. Obstructive sleep apnea on CPAP therapy Plan: Continue current medical treatment, encourage deep breathing and coughing, FiO2 down to 2 L, denies any difficulty breathing, pain control per CT surgery, bile signs are stable, no vasoactive drips, maintaining normal sinus rhythm. No acute events overnight, mediastinal chest tube has been removed, left chest tube remains in place, patient is tolerating ambulation, anticipate the unit today I performed a history & physical examination of the patient and discussed their management with my nurse practitioner, Shama Gonzalez. I reviewed the nurse practitioner's note and agree with the documented findings and plan of care. Lung sounds are positive for diminished breath sounds. The findings and the impression was discussed with the patient. I attest to the documentation by the nurse practitioner. Time with Patient: Less than 30
[2019-05-18 10:18] LABS: Glucose,Whole Blood 149 mg/dL (75-99)
[2019-05-18] MEDS ORDERED: PIOGLITAZONE 15 MG TAB PO STA (11:23)
[2019-05-18 12:00] LABS: Glucose,Whole Blood 149 mg/dL (75-99)
--- NOTE | 2019-05-18 12:20 | P.PN ---
Subjective This is a pleasant 63 years old male with past medical history of coronary artery disease status post right coronary artery stent in the past, status diabetes mellitus, hypertension, hyperlipidemia, sleep apnea on CPAP/BiPAP, CVA/TIA, GI bleed, peripheral neuropathy, left kidney cancer status post nephrectomy, Chronic kidney disease stage III, Non-Hodgkin lymphoma which is treated with no residual defect as per patient, right foot Charcot deformity with swelling and pain peripheral vascular disease On 01/19/2019 patient underwent cardiac cath for atypical chest pain with positive stress test for ischemia, showing severe disease involving the left circumflex coronary branches and intermediate to severe disease involving the left anterior descending artery and chronic total occlusion of the RCA with collateral arteries. For this reason patient was referred to cardiothoracic surgery for further evaluation. Patient is a status post coronary artery bypass grafting. Today is postoperative day #1. Patient in the ICU. Vitals are stable. wbc of 10 k, hemoglobin 10.3, potassium 5.3, sodium 136, creatinine 1.3, with baseline fluctuates between 1.0 up to 1.4. sugar controlled. liver enzymes not elevated. chest x-ray showing small pleural effusion Patient currently on small dose of insulin drip, he is taking trulicity at home once a week This morning patient was sitting in chair in the ICU. No specific complaints. Patient to his breakfast with no difficulty. No chest pain or dyspnea. 05/18/2019 Patient sitting in chair with no complaints. No chest pain or dyspnea. Hemodynamically stable and labs are stable. Creatinine is 1.3 today. Sugar controlled. He is on a sliding drip. Patient can be switched to Actos and sli ding scale. Patient can resume other diabetes medication later went sugar is more followed closely. Vitals stable. Continue with aspirin and Plavix Objective - Vital Signs Vital signs: Vital Signs Temp 98.2 F 05/18/19 08:00 Pulse 67 05/18/19 11:42 Resp 16 05/18/19 11:00 BP 90/57 05/18/19 11:00 Pulse Ox 97 05/18/19 11:00 Intake & Output 05/17/19 05/18/19 05/18/19 18:59 06:59 18:59 Intake Total 1675.512 693.556 193.029 Output Total 1628 2295 170 Balance 47.512 -1601.444 23.029 Weight 95.7 kg 98.4 kg Intake: IV 1637.0 429 180 0.9 440 360 150 Albumin Human 5% 250 ml 1000 In Empty Bag 1 bag @ 250 mls/hr IVPB Q1HR PRN Rx#: [id number] CO/CI 110 Nitroglycerine 3.0 Normal Saline Pressure 84 69 30 Bags Intake, IV Titration 38.512 164.556 13.029 Amount DOPamine DRIP 800 mg In 5.233 145.315 Dextrose/Water 1 250ml. bag @ 2 MCG/KG/MIN 3.589 mls/hr IV .Q24H [facility] Rx#: [id number] Insulin Regular 100 unit 33.279 19.241 13.029 In Sodium Chloride 0.9% 100 ml @ Per Protocol IV .Q0M [facility] Rx#:[id number] Oral 100 Output: Chest Tube Drainage 315 720 170 Chest Tube Left 205 470 140 Chest Tube Mediastinal 110 250 30 Drainage 233 30 Left Arm 0 Left Thigh 233 30 Urine 1080 1545 Other: Voiding Method Indwelling Catheter Indwelling Catheter ABP, PAP, CO, CI - Last Documented Arterial Blood Pressure 107/55 Pulmonary Artery Pressure 28/10 Cardiac Output 8.6 Cardiac Index 4.2 - Exam GENERAL: The patient is alert and oriented x3, not in any acute distress. Well developed, well nourished. HEENT: Pupils are round and equally reacting to light. EOMI. No scleral icterus. No conjunctival pallor. Normocephalic, atraumatic. No pharyngeal erythema. No thyromegaly. CARDIOVASCULAR: S1 and S2 present. No murmurs, rubs, or gallops. PULMONARY: Chest is clear to auscultation, no wheezing or crackles. ABDOMEN: Soft, nontender, nondistended, normoactive bowel sounds. No palpable organomegaly. MUSCULOSKELETAL: No joint swelling or deformity. EXTREMITIES: No cyanosis, clubbing, or pedal edema. NEUROLOGICAL: Gross neurological examination did not reveal any focal deficits. SKIN: No rashes. No petechiae - Labs CBC & Chem 7: 05/18/19 04:15 05/18/19 04:15 Labs: Abnormal Lab Results - Last 24 Hours (Table) 05/17/19 05/17/19 05/17/19 Range/Units 13:52 15:15 15:22 WBC (3.8-10.6) k/uL RBC (4.30-5.90) m/uL Hgb (13.0-17.5) gm/dL Hct (39.0-53.0) % Plt Count (150-450) k/uL Neutrophils # (1.3-7.7) k/uL Lymphocytes # (1.0-4.8) k/uL Carbon Dioxide 21 L (22-30) mmol/L BUN 25 H (9-20) mg/dL Creatinine 1.40 H (0.66-1.25) mg/dL Glucose 113 H (74-99) mg/dL POC Glucose (mg/dL) 146 H 116 H (75-99) mg/dL Alkaline Phosphatase (38-126) U/L Total Protein (6.3-8.2) g/dL 05/17/19 05/17/19 05/17/19 Range/Units 16:57 18:45 20:24 WBC (3.8-10.6) k/uL RBC (4.30-5.90) m/uL Hgb (13.0-17.5) gm/dL Hct (39.0-53.0) % Plt Count (150-450) k/uL Neutrophils # (1.3-7.7) k/uL Lymphocytes # (1.0-4.8) k/uL Carbon Dioxide (22-30) mmol/L BUN (9-20) mg/dL Creatinine (0.66-1.25) mg/dL Glucose (74-99) mg/dL POC Glucose (mg/dL) 115 H 122 H 154 H (75-99) mg/dL Alkaline Phosphatase (38-126) U/L Total Protein (6.3-8.2) g/dL 05/17/19 05/18/19 05/18/19 Range/Units 21:43 00:05 04:15 WBC 11.4 H (3.8-10.6) k/uL RBC 2.95 L (4.30-5.90) m/uL Hgb 9.3 L (13.0-17.5) gm/dL Hct 26.3 L (39.0-53.0) % Plt Count 115 L (150-450) k/uL Neutrophils # 9.8 H (1.3-7.7) k/uL Lymphocytes # 0.8 L (1.0-4.8) k/uL Carbon Dioxide (22-30) mmol/L BUN (9-20) mg/dL Creatinine (0.66-1.25) mg/dL Glucose (74-99) mg/dL POC Glucose (mg/dL) 152 H 104 H (75-99) mg/dL Alkaline Phosphatase (38-126) U/L Total Protein (6.3-8.2) g/dL 05/18/19 05/18/19 05/18/19 Range/Units 04:15 04:26 06:41 WBC (3.8-10.6) k/uL RBC (4.30-5.90) m/uL Hgb (13.0-17.5) gm/dL Hct (39.0-53.0) % Plt Count (150-450) k/uL Neutrophils # (1.3-7.7) k/uL Lymphocytes # (1.0-4.8) k/uL Carbon Dioxide (22-30) mmol/L BUN 26 H (9-20) mg/dL Creatinine 1.31 H (0.66-1.25) mg/dL Glucose 105 H (74-99) mg/dL POC Glucose (mg/dL) 115 H 117 H (75-99) mg/dL Alkaline Phosphatase 33 L (38-126) U/L Total Protein 5.8 L (6.3-8.2) g/dL 05/18/19 05/18/19 05/18/19 Range/Units 08:00 10:16 11:59 WBC (3.8-10.6) k/uL RBC (4.30-5.90) m/uL Hgb (13.0-17.5) gm/dL Hct (39.0-53.0) % Plt Count (150-450) k/uL Neutrophils # (1.3-7.7) k/uL Lymphocytes # (1.0-4.8) k/uL Carbon Dioxide (22-30) mmol/L BUN (9-20) mg/dL Creatinine (0.66-1.25) mg/dL Glucose (74-99) mg/dL POC Glucose (mg/dL) 205 H 149 H 149 H (75-99) mg/dL Alkaline Phosphatase (38-126) U/L Total Protein (6.3-8.2) g/dL Assessment and Plan Assessment: Coronary artery disease, with recent history of cardiac cath showing severe coronary artery disease involving the circumflex and moderate to severe involving the left anterior descending artery and total occlusion of the RCA. Diabetes mellitus Hypertension Hyperlipidemia Status post left nephrectomy for history of cancer Chronic kidney disease stage III Non-Hodgkin lymphoma with no residual effects after treatment right foot Charcot deformity with swelling and pain Peripheral vascular disease Plan: This is a pleasant 63 years old male with triple-vessel coronary artery disease status post CABG. Patient remains in the ICU. Patient is followed closely by primary thoracic surgery team. Keep monitoring blood glucose. Cardiology and pulmonary team R following the case as well. Continue with aspirin, and Plavix. Pain management Labs and medication were reviewed.. Continue same treatment. Continue with symptomatic treatment. Resume home medication. Monitor lytes and vitals. DVT and GI prophylaxis. Further recommendations of the clinical course of the patient DVT prophylaxis: Subcutaneous heparin GI Prophylaxis: Protonix
[2019-05-18 12:39] LABS: Glucose,Whole Blood 126 mg/dL (75-99)
--- NOTE | 2019-05-18 14:42 | P.PN ---
Subjective This is Isa Ayala PA-C dictating a progress note on this patient The patient was interviewed and examined by me as well as by Dr. Dinero Case discussed with Dr. Dinero and he agrees with the plan of care IMPRESSION / ASSESSMENT: Triple-vessel CAD status post CABG 4 History of CVA CKD, creatinine improved to 1.31 from 1.4 yesterday RAPHAEL Hypertension, blood pressure stable Dyslipidemia Diabetes Anemia, hemoglobin 9.3 from 10.3 PLAN: Continue maximally tolerated medication regimen for CAD including aspirin and statins, Plavix, and beta blockers HPI/interval history Patient is a 63-year-old male with a past medical history of CAD, hypertension, dyslipidemia, diabetes who presented for coronary artery bypass grafting. Today he underwent quadruple coronary artery bypass grafting using the left internal mammary to the LAD, left radial artery to the first OM, 6 ECG to the second OM, and SVG to the RCA. Patient seen and examined in the ICU, sitting in the chair. States he is feeling better than yesterday, his pain has improved. Still has a chest tube in. Bedside telemetry reveals sinus rhythm, no A. fib overnight. EXAMINATION Patient is afebrile, pulse in the 60s, respirations 16, blood pressure 106/57, oxygen saturation 93% on 2 L nasal cannula Patient seen and examined sitting up in the chair, in no acute distress Lungs clear to auscultation bilaterally, no audible wheezing rhonchi or crackles Heart is regular, no audible murmurs Lower extremities warm, no edema noted REVIEW OF LABS, ECG WBC 11.4, hemoglobin 9.3, platelets 115, potassium 4.3, BUN 26, creatinine 1.31 Objective - Vital Signs Vital signs: Vital Signs Temp 98.2 F 05/18/19 08:00 Pulse 67 05/18/19 11:42 Resp 16 05/18/19 11:00 BP 90/57 05/18/19 11:00 Pulse Ox 97 05/18/19 11:00 Intake & Output 05/17/19 05/18/19 05/18/19 18:59 06:59 18:59 Intake Total 1675.512 693.556 193.029 Output Total 1628 2295 170 Balance 47.512 -1601.444 23.029 Weight 95.7 kg 98.4 kg Intake: IV 1637.0 429 180 0.9 440 360 150 Albumin Human 5% 250 ml 1000 In Empty Bag 1 bag @ 250 mls/hr IVPB Q1HR PRN Rx#: [id number] CO/CI 110 Nitroglycerine 3.0 Normal Saline Pressure 84 69 30 Bags Intake, IV Titration 38.512 164.556 13.029 Amount DOPamine DRIP 800 mg In 5.233 145.315 Dextrose/Water 1 250ml. bag @ 2 MCG/KG/MIN 3.589 mls/hr IV .Q24H [facility] Rx#: [id number] Insulin Regular 100 unit 33.279 19.241 13.029 In Sodium Chloride 0.9% 100 ml @ Per Protocol IV .Q0M [facility] Rx#:[id number] Oral 100 Output: Chest Tube Drainage 315 720 170 Chest Tube Left 205 470 140 Chest Tube Mediastinal 110 250 30 Drainage 233 30 Left Arm 0 Left Thigh 233 30 Urine 1080 1545 Other: Voiding Method Indwelling Catheter Indwelling Catheter ABP, PAP, CO, CI - Last Documented Arterial Blood Pressure 107/55 Pulmonary Artery Pressure 28/10 Cardiac Output 8.6 Cardiac Index 4.2 - Labs CBC & Chem 7: 05/18/19 04:15 05/18/19 04:15 Labs: Abnormal Lab Results - Last 24 Hours (Table) 05/17/19 05/17/19 05/17/19 Range/Units 15:15 15:22 16:57 WBC (3.8-10.6) k/uL RBC (4.30-5.90) m/uL Hgb (13.0-17.5) gm/dL Hct (39.0-53.0) % Plt Count (150-450) k/uL Neutrophils # (1.3-7.7) k/uL Lymphocytes # (1.0-4.8) k/uL Carbon Dioxide 21 L (22-30) mmol/L BUN 25 H (9-20) mg/dL Creatinine 1.40 H (0.66-1.25) mg/dL Glucose 113 H (74-99) mg/dL POC Glucose (mg/dL) 116 H 115 H (75-99) mg/dL Alkaline Phosphatase (38-126) U/L Total Protein (6.3-8.2) g/dL 05/17/19 05/17/19 05/17/19 Range/Units 18:45 20:24 21:43 WBC (3.8-10.6) k/uL RBC (4.30-5.90) m/uL Hgb (13.0-17.5) gm/dL Hct (39.0-53.0) % Plt Count (150-450) k/uL Neutrophils # (1.3-7.7) k/uL Lymphocytes # (1.0-4.8) k/uL Carbon Dioxide (22-30) mmol/L BUN (9-20) mg/dL Creatinine (0.66-1.25) mg/dL Glucose (74-99) mg/dL POC Glucose (mg/dL) 122 H 154 H 152 H (75-99) mg/dL Alkaline Phosphatase (38-126) U/L Total Protein (6.3-8.2) g/dL 05/18/19 05/18/19 05/18/19 Range/Units 00:05 04:15 04:15 WBC 11.4 H (3.8-10.6) k/uL RBC 2.95 L (4.30-5.90) m/uL Hgb 9.3 L (13.0-17.5) gm/dL Hct 26.3 L (39.0-53.0) % Plt Count 115 L (150-450) k/uL Neutrophils # 9.8 H (1.3-7.7) k/uL Lymphocytes # 0.8 L (1.0-4.8) k/uL Carbon Dioxide (22-30) mmol/L BUN 26 H (9-20) mg/dL Creatinine 1.31 H (0.66-1.25) mg/dL Glucose 105 H (74-99) mg/dL POC Glucose (mg/dL) 104 H (75-99) mg/dL Alkaline Phosphatase 33 L (38-126) U/L Total Protein 5.8 L (6.3-8.2) g/dL 05/18/19 05/18/19 05/18/19 Range/Units 04:26 06:41 08:00 WBC (3.8-10.6) k/uL RBC (4.30-5.90) m/uL Hgb (13.0-17.5) gm/dL Hct (39.0-53.0) % Plt Count (150-450) k/uL Neutrophils # (1.3-7.7) k/uL Lymphocytes # (1.0-4.8) k/uL Carbon Dioxide (22-30) mmol/L BUN (9-20) mg/dL Creatinine (0.66-1.25) mg/dL Glucose (74-99) mg/dL POC Glucose (mg/dL) 115 H 117 H 205 H (75-99) mg/dL Alkaline Phosphatase (38-126) U/L Total Protein (6.3-8.2) g/dL 05/18/19 05/18/19 05/18/19 Range/Units 10:16 11:59 12:37 WBC (3.8-10.6) k/uL RBC (4.30-5.90) m/uL Hgb (13.0-17.5) gm/dL Hct (39.0-53.0) % Plt Count (150-450) k/uL Neutrophils # (1.3-7.7) k/uL Lymphocytes # (1.0-4.8) k/uL Carbon Dioxide (22-30) mmol/L BUN (9-20) mg/dL Creatinine (0.66-1.25) mg/dL Glucose (74-99) mg/dL POC Glucose (mg/dL) 149 H 149 H 126 H (75-99) mg/dL Alkaline Phosphatase (38-126) U/L Total Protein (6.3-8.2) g/dL
[2019-05-18] MEDS ORDERED: ALBUMIN HUMAN 5% 500 ML in EMPTY BAG 1 BAG IVPB STA (15:36)
[2019-05-18] MEDS ORDERED: INSULIN ASPART (NovoLOG) 100 UNIT/ML VIAL SQ SCH (16:49)
[2019-05-18 17:18] LABS: Glucose,Whole Blood 206 mg/dL (75-99)
[2019-05-18] MEDS ORDERED: INSULIN ASPART (NovoLOG) 100 UNIT/ML VIAL SQ ONE (17:27)
[2019-05-18] MEDS: TAMSULOSIN 0.4 MG CAP.ER.24H PO SCH (17:34)
[2019-05-18] MEDS: INSULIN ASPART (NovoLOG) 100 UNIT/ML VIAL SQ SCH ×2 (17:34→21:30)
[2019-05-18] MEDS: glipiZIDE 5 MG TAB PO SCH (20:28)
[2019-05-18] MEDS ORDERED: INSULIN DETEMIR (LEVEMIR) 100 UNIT/ML SYR SQ SCH (21:00)
[2019-05-18 21:27] LABS: Glucose,Whole Blood 195 mg/dL (75-99)
[2019-05-18] MEDS: SENNOSIDES-DOCUSATE SODIUM 1 EACH TAB PO SCH (22:03)
[2019-05-19] MEDS: HEPARIN SODIUM,PORCINE 5,000 UNIT/ML 1 ML VIAL SQ SCH ×4 (00:48→23:19)
[2019-05-19] MEDS: ACETAMINOPHEN IV (For NPO) 1,000 MG in EMPTY BAG 1 BAG IVPB SCH (01:22)
[2019-05-19 05:40] LABS: HCT 24.5 % (39.0-53.0); HGB 8.4 gm/dL (13.0-17.5); MCH 31.4 pg (25.0-35.0); MCHC 34.2 g/dL (31.0-37.0); MCV 91.8 fL (80.0-100.0); Mean Platelet Volume 8.6; Platelet Count 104 k/uL (150-450); RBC 2.67 m/uL (4.30-5.90); RDW 14.7 % (11.5-15.5); WBC 6.7 k/uL (3.8-10.6)
[2019-05-19] MEDS: traMADol 50 MG TAB PO PRN ×3 (05:43→23:17)
[2019-05-19 05:53] LABS: Calcium 8.6 mg/dL (8.4-10.2); Potassium 4.4 mmol/L (3.5-5.1)
[2019-05-19 07:11] LABS: Glucose,Whole Blood 136 mg/dL (75-99)
--- NOTE | 2019-05-19 07:12 | P.PN ---
Subjective Progress Note Date: 05/19/19 Principal diagnosis: Diffuse triple vessel coronary artery disease with totally occluded right coronary artery, preserved left ventricular function. 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 Endoscopic harvesting of the left radial artery. Endoscopic harvesting of the left greater saphenous vein from the groin to the mid lower level. Intraoperative transesophageal echocardiogram and epi-aortic scanning. Intraoperative graft flow measurements using the [employer] system. Postoperative acute blood loss anemia, expected outcome of surgery secondary to hemodilution and cardiopulmonary bypass pump Postoperative thrombocytopenia, expected outcome of surgery secondary to hemodilution Postoperative hypotension, expected Postoperative acute on chronic kidney disease, expected, likely pre-renal The patient is currently sitting up in a recliner in no acute distress in the intensive care unit. He continues to complain of postoperative surgical type pain which he states is better controlled, denies shortness of breath. Currently in normal sinus rhythm and hemodynamically stable on no inotropes or pressors. Cordis, mediastinal chest tubes and CATRACHITA drains discontinued yesterday, left pleural chest tube remains. He ambulated in the hallway 4 times yesterday. Transfer orders were placed yesterday for 3 S. cardiac stepdown unit, no beds available. No other new concerns. Objective - Vital Signs Vital signs: Vital Signs Temp 98.2 F 05/19/19 04:00 Pulse 73 05/19/19 06:00 Resp 14 05/19/19 06:00 BP 108/65 05/19/19 06:00 Pulse Ox 98 05/19/19 06:00 Intake & Output 05/18/19 05/18/19 05/19/19 06:59 18:59 06:59 Intake Total 431.152 5367.029 850 Output Total 2295 810 985 Balance -1601.444 489.029 -135 Weight 98.4 kg 95.6 kg Intake: IV 429 186 100 0.9 360 150 0 ACETAMINOPHEN IV (For NPO 100 ) 1,000 mg In Empty Bag 1 bag @ 400 mls/hr IVPB Q6H [facility] Rx#:[id number] Normal Saline Pressure 69 36 Bags Intake, IV Titration 164.556 613.029 Amount ACETAMINOPHEN IV (For NPO 100 ) 1,000 mg In Empty Bag 1 bag @ 400 mls/hr IVPB Q6H [facility] Rx#:[id number] Albumin Human 5% 500 ml 500 In Empty Bag 1 bag @ 500 mls/hr IVPB [facility] Rx#: [id number] DOPamine DRIP 800 mg In 145.315 Dextrose/Water 1 250ml. bag @ 2 MCG/KG/MIN 3.589 mls/hr IV .Q24H [facility] Rx#: [id number] Insulin Regular 100 unit 19.241 13.029 In Sodium Chloride 0.9% 100 ml @ Per Protocol IV .Q0M [facility] Rx#:[id number] Oral 100 500 750 Output: Chest Tube Drainage 720 210 290 Chest Tube Left 470 140 290 Chest Tube Mediastinal 250 70 Drainage 30 Left Thigh 30 Urine 1545 600 695 Stool 0 Other: Voiding Method Indwelling Catheter Urinal # Voids 1 ABP, PAP, CO, CI - Last Documented Arterial Blood Pressure 107/55 Pulmonary Artery Pressure 28/10 Cardiac Output 8.6 Cardiac Index 4.2 - Constitutional General appearance: Present: cooperative, no acute distress, obese - Respiratory Details: Lungs sounds diminished bilaterally with coarse breath sounds in the bases, clears with coughing. Respirations even, nonlabored. Currently on 3 L nasal cannula with oxygen saturation 98%. Able to achieve 9275-3522 mL this morning on his incentive spirometry. Left pleural chest tube to continuous wall suction, 80 mL serosanguineous drainage overnight, 300 mL in the last 24 hours. No air leaks present. - Cardiovascular Details: S1, S2 present. Regular rate and rhythm, sinus rhythm on telemetry. Sternum stable. A/V epicardial pacemaker wires present, grounded. Palpable peripheral pulses bilaterally. Trace bilateral upper extremity edema present. No calf pain or tenderness noted. Heart hugger in place with patient demonstrating appropriate use. Antiembolism stockings, SCDs present. - Gastrointestinal Gastrointestinal Comment(s): Abdomen soft, nontender, nondistended. Active bowel sounds present 4 quadrants. Tolerating diet. Positive flatus, negative bowel movement since surgery - Genitourinary Genitourinary Comment(s): [place] discontinued yesterday. Patient did have to be straight cathed twice, however he has voided throughout the night. - Integumentary Integumentary Comment(s): Skin is warm and dry with evidence of good perfusion. Anterior chest incision well approximated and covered with dry intact dressing. Left radial artery harvest site well approximated, patient able to move wiggle all fingers on his left hand, he does complain of some numbness and tingling, skin is pink, he is able to lehr tender objects. Left lower extremity EVH site well approximated, some oozing from the site last night after CATRACHITA drain removed yesterday. - Neurologic Neurologic: Present: CNII-XII intact - Musculoskeletal Musculoskeletal: Present: gait normal, strength equal bilaterally - Psychiatric Psychiatric: Present: A&O x's 3, appropriate affect, intact judgment & insight - Allied health notes Allied health notes reviewed: nursing - Labs CBC & Chem 7: 05/19/19 04:45 05/19/19 04:45 Labs: Abnormal Lab Results - Last 24 Hours (Table) 05/18/19 05/18/19 05/18/19 Range/Units 08:00 10:16 11:59 RBC (4.30-5.90) m/uL Hgb (13.0-17.5) gm/dL Hct (39.0-53.0) % Plt Count (150-450) k/uL BUN (9-20) mg/dL Creatinine (0.66-1.25) mg/dL Glucose (74-99) mg/dL POC Glucose (mg/dL) 205 H 149 H 149 H (75-99) mg/dL 05/18/19 05/18/19 05/18/19 Range/Units 12:37 17:16 21:26 RBC (4.30-5.90) m/uL Hgb (13.0-17.5) gm/dL Hct (39.0-53.0) % Plt Count (150-450) k/uL BUN (9-20) mg/dL Creatinine (0.66-1.25) mg/dL Glucose (74-99) mg/dL POC Glucose (mg/dL) 126 H 206 H 195 H (75-99) mg/dL 05/19/19 05/19/19 Range/Units 04:45 04:45 RBC 2.67 L (4.30-5.90) m/uL Hgb 8.4 L (13.0-17.5) gm/dL Hct 24.5 L (39.0-53.0) % Plt Count 104 L (150-450) k/uL BUN 31 H (9-20) mg/dL Creatinine 1.41 H (0.66-1.25) mg/dL Glucose 144 H (74-99) mg/dL POC Glucose (mg/dL) (75-99) mg/dL - Imaging and Cardiology Chest x-ray: image reviewed Assessment and Plan Assessment: 1. Diffuse triple-vessel coronary artery disease with totally occluded right coronary artery, status post four-vessel CABG 2. History of coronary artery disease with stent placement in 2013 3. Stroke in September 2016 with left vertebral artery stenosis 4. Single kidney, chronic kidney disease stage III 5. Tobacco abuse with recent cessation, preoperative FEV1 103% of predicted 6. Obstructive sleep apnea without CPAP use, status post UP3 surgery 7. Type 2 diabetes mellitus with preoperative hemoglobin A1c 6.2% 8. Hypertension 9. Hyperlipidemia 10. May-Thurner syndrome status post recent stenting of bilateral iliac veins 11. Remote history of pneumonia 12. Transitional cell carcinoma 19 years ago 13. Syncope in November 2018 14. Charcot foot with ambulation with a cane 15. Family history of premature coronary artery disease 16. Postoperative acute blood loss anemia and postoperative thrombocytopenia 17. Postoperative hypotension 18. Postoperative acute on chronic kidney disease Plan: 1. Continue aspirin, statin, Plavix, beta myriam therapy. Will increase beta myriam therapy as tolerated 2. Wean O2 as tolerated. Encourage incentive spirometry use 10 times every hour while awake 3. Encourage continued smoking cessation. Bronchodilators per pulmonology 4. Increase activity, ambulate as tolerated. Patient will need cane to be brought from home. PT/OT/cardiac rehab following. 5. Will discontinue epicardial pacemaker wires. Patient to remain on bedrest for 1 hour post wire removal. 6. Will monitor daily labs and x-rays. Electrolyte replacement per protocol. No transfusion 7. Pain control with current medication regimen. No Toradol secondary to solitary kidney. 8. Nephrology consulted, appretiate recommendations. Avoid nephrotoxic agents 9. Diabetic management per primary care service 10. Will discontinue left pleural chest tube 11. May bladder scan and straight cath for > 300 mL residual. Will increase Flomax to twice daily per patient's home regimen 12. Transfer orders for 3S cardiac stepdown unit placed yesterday, may transfer when bed available 13. Discharge planning in progress. Anticipate DC to home with home care in 48-72 hours, home care ordered 14. More recommendations to follow based on patient's progress Time with Patient: Greater than 30
[2019-05-19] MEDS: INSULIN ASPART (NovoLOG) 100 UNIT/ML VIAL SQ SCH ×4 (07:42→20:58)
--- NOTE | 2019-05-19 08:32 | P.PN ---
Subjective Progress Note Date: 05/19/19 Principal diagnosis: Triple-vessel coronary artery disease status post bypass grafting On 05/18/2019 patient seen in follow-up in the intensive care unit, his postoperative day 2 status post four-vessel coronary artery bypass grafting with MCRAE to LAD, left radial to the first OM, reverse SVG to OM 2 reverse SVG to the RCA. Patient is doing well, although complaining of some pain incisional site, but does not appear to be in any distress, and appears to be somewhat sleepy but arouses easily. Denies any difficulty breathing, he is on 2 L of oxygen with a pulse ox of 94%, no fever chills, hemodynamically stable, 0.9 normal saline at a rate of 30 ML per hour, no vasoactive, no other drips. His mediastinal chest tube has been discontinued, left chest tube remains in place, and there has been 675 ML of output in last 24 hours. Chest tube will remain in place for another [address] surgery, lung sounds are clear, diminished at the bases, ISS effort is 1000 mL today. He has been tolerating ambulation. Today's chest x- ray shows a component of volume overload, pleural effusions and associated atelectasis. today's labs have been reviewed, blood cell count of 11.4, hemoglobin of 9.3, electrolytes are within normal limits, slight improvement of patient's renal profile, BUN is 26 and creatinine is 1.31. Patient has mild generalized edema, patient is diuresing, and he is in -1500 mL fluid balance over the last 24 hours On 05/19/2019 patient seen in follow-up in the intensive care unit, this is postoperative day 3, status post four-vessel coronary artery bypass grafting. Patient is doing well, he is currently on 3 L of oxygen. His pulse ox is 96-98% , he is afebrile, hemodynamically patient is stable, no maintenance IVs, no drips. Denies any shortness of breath, chest x-ray has been reviewed still showing bilateral pleural effusions with bibasilar atelectasis, relatively stable compared to yesterday's exam. Lung sounds diminished at the bases, patient is working on his incentive spirometer, remains in sinus rhythm, with a controlled rate. Midsternal incision chest tube sites clean dry and intact, left neck incision clean dry and intact patient still has a left-sided chest tube in place and there has been 430 ML of serous drainage in the last 24 hours. no Nausea no vomiting, patient is tolerating oral diet, is non-oliguric. His labs have been reviewed, showing white blood cell count of 6.7, hemoglobin is 8.4, electrolytes were within normal limits, BUN is 31 and creatinine is 1.41 Objective - Vital Signs Vital signs: Vital Signs Temp 98.2 F 05/19/19 04:00 Pulse 80 05/19/19 07:00 Resp 12 05/19/19 07:00 BP 120/77 05/19/19 07:00 Pulse Ox 98 05/19/19 06:00 Intake & Output 05/18/19 05/19/19 05/19/19 18:59 06:59 18:59 Intake Total 1299.029 850 Output Total 810 985 70 Balance 489.029 -135 -70 Weight 95.6 kg Intake: IV 186 100 0.9 150 0 ACETAMINOPHEN IV (For NPO 100 ) 1,000 mg In Empty Bag 1 bag @ 400 mls/hr IVPB Q6H [facility] Rx#:[id number] Normal Saline Pressure 36 Bags Intake, IV Titration 613.029 Amount ACETAMINOPHEN IV (For NPO 100 ) 1,000 mg In Empty Bag 1 bag @ 400 mls/hr IVPB Q6H [facility] Rx#:[id number] Albumin Human 5% 500 ml 500 In Empty Bag 1 bag @ 500 mls/hr IVPB ONCE [facility] Rx#: [id number] Insulin Regular 100 unit 13.029 In Sodium Chloride 0.9% 100 ml @ Per Protocol IV .Q0M [facility] Rx#:[id number] Oral 500 750 Output: Chest Tube Drainage 210 290 20 Chest Tube Left 140 290 20 Chest Tube Mediastinal 70 Urine 600 695 50 Stool 0 Other: Voiding Method Urinal # Voids 1 ABP, PAP, CO, CI - Last Documented Arterial Blood Pressure 107/55 Pulmonary Artery Pressure 28/10 Cardiac Output 8.6 Cardiac Index 4.2 - Exam GENERAL EXAM: Alert, very pleasant, 63-year-old white male on 3 L of oxygen with a pulse ox of 96%, comfortable in no apparent distress. HEAD: Normocephalic/atraumatic. EYES: Normal reaction of pupils, equal size. Conjunctiva pink, sclera white. NOSE: Clear with pink turbinates. THROAT: No erythema or exudates. NECK: No masses, no JVD, no thyroid enlargement, no adenopathy. CHEST: No chest wall deformity. Symmetrical expansion. Midsternal incision is clean dry and intact, chest tube sites clean dry and intact, pacemaker wires are grounded. Mediastinal chest tube has been removed, left chest tube is in place with serosanguineous output no air leak LUNGS: Equal air entry with no crackles, wheeze, rhonchi or dullness. CVS: Regular rate and rhythm, normal S1 and S2, no gallops, no murmurs, no rubs ABDOMEN: Soft, nontender. No hepatosplenomegaly, normal bowel sounds, no guarding or rigidity. EXTREMITIES: No clubbing, no edema, no cyanosis, 2+ pulses and upper and lower extremities. Left leg incisions clean dry and intact MUSCULOSKELETAL: Muscle strength and tone normal. SPINE: No scoliosis or deformity SKIN: No rashes, CENTRAL NERVOUS SYSTEM: Alert and oriented -3. No focal deficits, tone is normal in all 4 extremities. PSYCHIATRIC: Alert and oriented -3. Appropriate affect. Intact judgment and insight. - Labs CBC & Chem 7: 05/19/19 04:45 05/19/19 04:45 Labs: Abnormal Lab Results - Last 24 Hours (Table) 05/18/19 05/18/19 05/18/19 Range/Units 10:16 11:59 12:37 RBC (4.30-5.90) m/uL Hgb (13.0-17.5) gm/dL Hct (39.0-53.0) % Plt Count (150-450) k/uL BUN (9-20) mg/dL Creatinine (0.66-1.25) mg/dL Glucose (74-99) mg/dL POC Glucose (mg/dL) 149 H 149 H 126 H (75-99) mg/dL 05/18/19 05/18/19 05/19/19 Range/Units 17:16 21:26 04:45 RBC 2.67 L (4.30-5.90) m/uL Hgb 8.4 L (13.0-17.5) gm/dL Hct 24.5 L (39.0-53.0) % Plt Count 104 L (150-450) k/uL BUN (9-20) mg/dL Creatinine (0.66-1.25) mg/dL Glucose (74-99) mg/dL POC Glucose (mg/dL) 206 H 195 H (75-99) mg/dL 05/19/19 05/19/19 Range/Units 04:45 07:09 RBC (4.30-5.90) m/uL Hgb (13.0-17.5) gm/dL Hct (39.0-53.0) % Plt Count (150-450) k/uL BUN 31 H (9-20) mg/dL Creatinine 1.41 H (0.66-1.25) mg/dL Glucose 144 H (74-99) mg/dL POC Glucose (mg/dL) 136 H (75-99) mg/dL Assessment and Plan Plan: Assessment: #1. Triple-vessel coronary artery disease status post four-vessel coronary artery bypass grafting postoperative day 3 #2. Routine postoperative ventilator management with extubation in less than 7 hours of OR exit time #3. History of coronary artery disease #4. Chronic kidney disease stage III #5. Diabetes mellitus type II #6. Hypertension #7. Hyperlipidemia #8. History of transitional cell carcinoma status post nephrectomy #9. History of benign prostatic hypertrophy #10. History of TIA #11. May-Thurner syndrome status post recent stenting of bilateral iliac veins #12. Obstructive sleep apnea on CPAP therapy Plan: She is doing well, anticipate removal of the left pleural chest tube today, pacemaker wires, patient is tolerating ambulation, continue weaning FiO2, encourage deep breathing and coughing, today's chest x-ray has been reviewed showing relatively stable findings with bilateral pleural effusions and bibasilar atelectasis. Transfer out of ICU possibly today if a bed is available, and anticipate discharge to inpatient rehab by the end of the week I performed a history & physical examination of the patient and discussed their management with my nurse practitioner, Shama Gonzalez. I reviewed the nurse practitioner's note and agree with the documented findings and plan of care. Lung sounds are positive for diminished breath sounds. The findings and the impression was discussed with the patient. I attest to the documentation by the nurse practitioner. Time with Patient: Less than 30
[2019-05-19] MEDS: PANTOPRAZOLE 40 MG TABLET PO SCH (08:40)
[2019-05-19] MEDS: ATORVASTATIN 40 MG TAB PO SCH (08:40)
[2019-05-19] MEDS: ASPIRIN 325 MG TAB PO SCH (08:40)
[2019-05-19] MEDS: glipiZIDE 5 MG TAB PO SCH ×2 (08:40→16:54)
[2019-05-19] MEDS: GABAPENTIN 300 MG CAP PO SCH ×2 (08:40→20:53)
[2019-05-19] MEDS: CLOPIDOGREL 75 MG TAB PO SCH (08:40)
[2019-05-19] MEDS: FLUTICASONE 50MCG/SPRAY NASAL 16GM EA NOSTRIL SCH (08:40)
[2019-05-19] MEDS: METOPROLOL TARTRATE 12.5 MG TAB PO SCH ×2 (08:41→20:53)
[2019-05-19] MEDS: PIOGLITAZONE 15 MG TAB PO SCH (08:41)
[2019-05-19] MEDS: TAMSULOSIN 0.4 MG CAP.ER.24H PO SCH ×2 (08:41→20:53)
--- NOTE | 2019-05-19 08:50 | XR ---
EXAMINATION TYPE: XR chest 1V portable DATE OF EXAM: 05/19/2019 COMPARISON: 05/18/2019 HISTORY: Post CABG TECHNIQUE: Single frontal view of the chest is obtained. FINDINGS: Postoperative changes are seen. Left-sided chest tube suspected. No sizable pneumothorax. Bilateral consolidation and pleural effusion with cardiomegaly. Atherosclerotic change aorta. IMPRESSION: 1. Stable x-ray with bilateral infiltrate and pleural effusion a degree of underlying venous congesti on is suspected. Postoperative atelectasis or compressive atelectasis favored over pneumonia.
[2019-05-19] MEDS: IPRATROPIUM-ALBUTEROL 3 ML NEB INHALATION SCH ×4 (09:53→20:12)
--- NOTE | 2019-05-19 10:24 | P.PN ---
Subjective Patient is seen in follow-up for acute kidney injury on chronic any disease. Renal function is stable. He has been voiding but did require straight catheterization twice yesterday. Oral intake is fair. No vomiting or diarrhea. Vital signs are stable. General: The patient appeared well nourished and normally developed. HEENT: Head exam is unremarkable. Neck is without jugular venous distension. LUNGS: Breath sounds decreased. Chest tube noted. HEART: Rate and Rhythm are regular. First and second heart sounds normal. No murmurs, rubs or gallops. ABDOMEN: Abdominal exam reveals normal bowel sounds. Non-tender and non- distended. No evidence of peritonitis. EXTREMITITES: No clubbing, cyanosis, or edema. Objective - Vital Signs Vital signs: Vital Signs Temp 98.2 F 05/19/19 04:00 Pulse 80 05/19/19 07:00 Resp 12 05/19/19 07:00 BP 120/77 05/19/19 07:00 Pulse Ox 98 05/19/19 06:00 Intake & Output 05/18/19 05/19/19 05/19/19 18:59 06:59 18:59 Intake Total 1299.029 850 Output Total 810 985 70 Balance 489.029 -135 -70 Weight 95.6 kg Intake: IV 186 100 0.9 150 0 ACETAMINOPHEN IV (For NPO 100 ) 1,000 mg In Empty Bag 1 bag @ 400 mls/hr IVPB Q6H [facility] Rx#:[id number] Normal Saline Pressure 36 Bags Intake, IV Titration 613.029 Amount ACETAMINOPHEN IV (For NPO 100 ) 1,000 mg In Empty Bag 1 bag @ 400 mls/hr IVPB Q6H [facility] Rx#:[id number] Albumin Human 5% 500 ml 500 In Empty Bag 1 bag @ 500 mls/hr IVPB ONCE [facility] Rx#: [id number] Insulin Regular 100 unit 13.029 In Sodium Chloride 0.9% 100 ml @ Per Protocol IV .Q0M [facility] Rx#:[id number] Oral 500 750 Output: Chest Tube Drainage 210 290 20 Chest Tube Left 140 290 20 Chest Tube Mediastinal 70 Urine 600 695 50 Stool 0 Other: Voiding Method Urinal # Voids 1 ABP, PAP, CO, CI - Last Documented Arterial Blood Pressure 107/55 Pulmonary Artery Pressure 28/10 Cardiac Output 8.6 Cardiac Index 4.2 - Labs CBC & Chem 7: 05/19/19 04:45 05/19/19 04:45 Labs: Abnormal Lab Results - Last 24 Hours (Table) 05/18/19 05/18/19 05/18/19 Range/Units 11:59 12:37 17:16 RBC (4.30-5.90) m/uL Hgb (13.0-17.5) gm/dL Hct (39.0-53.0) % Plt Count (150-450) k/uL BUN (9-20) mg/dL Creatinine (0.66-1.25) mg/dL Glucose (74-99) mg/dL POC Glucose (mg/dL) 149 H 126 H 206 H (75-99) mg/dL 05/18/19 05/19/19 05/19/19 Range/Units 21:26 04:45 04:45 RBC 2.67 L (4.30-5.90) m/uL Hgb 8.4 L (13.0-17.5) gm/dL Hct 24.5 L (39.0-53.0) % Plt Count 104 L (150-450) k/uL BUN 31 H (9-20) mg/dL Creatinine 1.41 H (0.66-1.25) mg/dL Glucose 144 H (74-99) mg/dL POC Glucose (mg/dL) 195 H (75-99) mg/dL 05/19/19 Range/Units 07:09 RBC (4.30-5.90) m/uL Hgb (13.0-17.5) gm/dL Hct (39.0-53.0) % Plt Count (150-450) k/uL BUN (9-20) mg/dL Creatinine (0.66-1.25) mg/dL Glucose (74-99) mg/dL POC Glucose (mg/dL) 136 H (75-99) mg/dL Assessment and Plan Plan: Assessment: 1. Acute kidney injury mostly prerenal secondary to hemodynamic instability. Renal function stable. 2. Chronic kidney disease stage III secondary to solitary right kidney. Baseline creatinine in the range of 1-1.2. 3. Coronary artery disease status post four-vessel bypass in 05/16/2019. 4. Mild hyperkalemia secondary to acute kidney injury. Improved. 5. Diabetes mellitus. 6. 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 Plan: Encourage oral intake. Avoid nephrotoxins. Continue to monitor renal function and urine output. Monitor for urinary retention. Continue Flomax. Hold DOLLY inhibitor for now.
--- NOTE | 2019-05-19 10:41 | P.PN ---
Subjective This is a pleasant 63 years old male with past medical history of coronary artery disease status post right coronary artery stent in the past, status diabetes mellitus, hypertension, hyperlipidemia, sleep apnea on CPAP/BiPAP, CVA/TIA, GI bleed, peripheral neuropathy, left kidney cancer status post nephrectomy, Chronic kidney disease stage III, Non-Hodgkin lymphoma which is treated with no residual defect as per patient, right foot Charcot deformity with swelling and pain peripheral vascular disease On 01/19/2019 patient underwent cardiac cath for atypical chest pain with positive stress test for ischemia, showing severe disease involving the left circumflex coronary branches and intermediate to severe disease involving the left anterior descending artery and chronic total occlusion of the RCA with collateral arteries. For this reason patient was referred to cardiothoracic surgery for further evaluation. Patient is a status post coronary artery bypass grafting. Today is postoperative day #1. Patient in the ICU. Vitals are stable. wbc of 10 k, hemoglobin 10.3, potassium 5.3, sodium 136, creatinine 1.3, with baseline fluctuates between 1.0 up to 1.4. sugar controlled. liver enzymes not elevated. chest x-ray showing small pleural effusion Patient currently on small dose of insulin drip, he is taking trulicity at home once a week This morning patient was sitting in chair in the ICU. No specific complaints. Patient to his breakfast with no difficulty. No chest pain or dyspnea. 05/18/2019 Patient sitting in chair with no complaints. No chest pain or dyspnea. Hemodynamically stable and labs are stable. Creatinine is 1.3 today. Sugar controlled. He is on a sliding drip. Patient can be switched to Actos and sli ding scale. Patient can resume other diabetes medication later went sugar is more followed closely. Vitals stable. Continue with aspirin and Plavix 05/19/2019 Patient is lying in bed, no chest pain or dyspnea. Vitals are stable. WBC 6.7K, hemoglobin 8.4, platelets 104, creatinine 1.4 similar to previous days, Sugar is running between 126-206. This morning was 136. He remains on glipizide 5 mg twice a day and Actos. Discontinue scheduled insulin and continue with insulin sliding scale. Patient is been followed by several consultants. Objective - Vital Signs Vital signs: Vital Signs Temp 98.2 F 05/19/19 04:00 Pulse 80 01/23/20 07:00 Resp 12 05/19/19 07:00 BP 120/77 05/19/19 07:00 Pulse Ox 98 05/19/19 06:00 Intake & Output 05/18/19 05/19/19 05/19/19 18:59 06:59 18:59 Intake Total 1299.029 850 Output Total 810 985 70 Balance 489.029 -135 -70 Weight 95.6 kg Intake: IV 186 100 0.9 150 0 ACETAMINOPHEN IV (For NPO 100 ) 1,000 mg In Empty Bag 1 bag @ 400 mls/hr IVPB Q6H [facility] Rx#:[id number] Normal Saline Pressure 36 Bags Intake, IV Titration 613.029 Amount ACETAMINOPHEN IV (For NPO 100 ) 1,000 mg In Empty Bag 1 bag @ 400 mls/hr IVPB Q6H [facility] Rx#:[id number] Albumin Human 5% 500 ml 500 In Empty Bag 1 bag @ 500 mls/hr IVPB ONCE STA Rx#: [id number] Insulin Regular 100 unit 13.029 In Sodium Chloride 0.9% 100 ml @ Per Protocol IV .Q0M [facility] Rx#:[id number] Oral 500 750 Output: Chest Tube Drainage 210 290 20 Chest Tube Left 140 290 20 Chest Tube Mediastinal 70 Urine 600 695 50 Stool 0 Other: Voiding Method Urinal # Voids 1 ABP, PAP, CO, CI - Last Documented Arterial Blood Pressure 107/55 Pulmonary Artery Pressure 28/10 Cardiac Output 8.6 Cardiac Index 4.2 - Exam GENERAL: The patient is alert and oriented x3, not in any acute distress. Well developed, well nourished. HEENT: Pupils are round and equally reacting to light. EOMI. No scleral icterus. No conjunctival pallor. Normocephalic, atraumatic. No pharyngeal erythema. No thyromegaly. CARDIOVASCULAR: S1 and S2 present. No murmurs, rubs, or gallops. PULMONARY: Chest is clear to auscultation, no wheezing or crackles. ABDOMEN: Soft, nontender, nondistended, normoactive bowel sounds. No palpable organomegaly. MUSCULOSKELETAL: No joint swelling or deformity. EXTREMITIES: No cyanosis, clubbing, or pedal edema. NEUROLOGICAL: Gross neurological examination did not reveal any focal deficits. SKIN: No rashes. No petechiae - Labs CBC & Chem 7: 05/19/19 04:45 05/19/19 04:45 Labs: Abnormal Lab Results - Last 24 Hours (Table) 05/18/19 05/18/19 05/18/19 Range/Units 11:59 12:37 17:16 RBC (4.30-5.90) m/uL Hgb (13.0-17.5) gm/dL Hct (39.0-53.0) % Plt Count (150-450) k/uL BUN (9-20) mg/dL Creatinine (0.66-1.25) mg/dL Glucose (74-99) mg/dL POC Glucose (mg/dL) 149 H 126 H 206 H (75-99) mg/dL 05/18/19 05/19/19 05/19/19 Range/Units 21:26 04:45 04:45 RBC 2.67 L (4.30-5.90) m/uL Hgb 8.4 L (13.0-17.5) gm/dL Hct 24.5 L (39.0-53.0) % Plt Count 104 L (150-450) k/uL BUN 31 H (9-20) mg/dL Creatinine 1.41 H (0.66-1.25) mg/dL Glucose 144 H (74-99) mg/dL POC Glucose (mg/dL) 195 H (75-99) mg/dL 05/19/19 Range/Units 07:09 RBC (4.30-5.90) m/uL Hgb (13.0-17.5) gm/dL Hct (39.0-53.0) % Plt Count (150-450) k/uL BUN (9-20) mg/dL Creatinine (0.66-1.25) mg/dL Glucose (74-99) mg/dL POC Glucose (mg/dL) 136 H (75-99) mg/dL Assessment and Plan Assessment: Coronary artery disease, with recent history of cardiac cath showing severe coronary artery disease involving the circumflex and moderate to severe involving the left anterior descending artery and total occlusion of the RCA. Diabetes mellitus Hypertension Hyperlipidemia Status post left nephrectomy for history of cancer Chronic kidney disease stage III Non-Hodgkin lymphoma with no residual effects after treatment right foot Charcot deformity with swelling and pain Peripheral vascular disease Plan: This is a pleasant 63 years old male with triple-vessel coronary artery disease status post CABG. Patient remains in the ICU. Patient is followed closely by primary thoracic surgery team. Keep monitoring blood glucose. Cardiology and pulmonary team R following the case as well. Continue with aspirin, and Plavix. Pain management Labs and medication were reviewed.. Continue same treatment. Continue with symptomatic treatment. Resume home medication. Monitor lytes and vitals. DVT and GI prophylaxis. Further recommendations of the clinical course of the patient DVT prophylaxis: Subcutaneous heparin GI Prophylaxis: Protonix
[2019-05-19 12:01] LABS: Glucose,Whole Blood 105 mg/dL (75-99)
[2019-05-19] MEDS ORDERED: DIPHENOX-ATROP 2.5-0.025 MG 1 EACH TAB PO PRN (16:28)
[2019-05-19 16:51] LABS: Glucose,Whole Blood 124 mg/dL (75-99)
--- NOTE | 2019-05-19 19:02 | P.PN ---
Subjective Patient is a 63-year-old male who is status post CABG 4. Patient seen and examined in the ICU, sitting up in the chair. Bedside telemetry reveals sinus rhythm, heart rate in the 80s. Patient is complaining of diarrhea and abdominal pain. States his post operative pain has improved. No shortness of breath WBC 6.7, hemoglobin 8.4, platelets 104, potassium 4.4, BUN 31, creatinine 1.41 Patient is afebrile, pulse in the 80s, respirations 18, blood pressure 140s over 80s, oxygen saturation 94% on room air Patient seen and examined sitting up in the chair, in no acute distress Lungs clear to auscultation bilaterally Heart is regular, no audible murmurs He does have some lower extremity edema which he attributes to charcot foot Impression Triple-vessel CAD status post CABG 4 History of CVA CKD, BUN and creatinine trending up Obstructive sleep apnea Hypertension Dyslipidemia Diabetes Anemia Diarrhea, C. diff negative Plan Maximize cardiac medications for CAD Objective - Vital Signs Vital signs: Vital Signs Temp 98.5 F 05/19/19 16:00 Pulse 97 05/19/19 18:00 Resp 18 05/19/19 18:00 BP 135/68 05/19/19 18:00 Pulse Ox 90 L 05/19/19 18:00 Intake & Output 05/19/19 05/19/19 05/20/19 06:59 18:59 06:59 Intake Total 850 Output Total 985 260 Balance -135 -260 Weight 95.6 kg Intake: IV 100 0.9 0 ACETAMINOPHEN IV (For NPO 100 ) 1,000 mg In Empty Bag 1 bag @ 400 mls/hr IVPB Q6H [facility] Rx#:[id number] Oral 750 Output: Chest Tube Drainage 290 20 Chest Tube Left 290 20 Urine 695 240 Stool 0 Other: Voiding Method Urinal Urinal # Voids 1 # Bowel Movements 1 ABP, PAP, CO, CI - Last Documented Arterial Blood Pressure 107/55 Pulmonary Artery Pressure 28/10 Cardiac Output 8.6 Cardiac Index 4.2 - Labs CBC & Chem 7: 05/19/19 04:45 05/19/19 04:45 Labs: Abnormal Lab Results - Last 24 Hours (Table) 05/18/19 05/19/19 05/19/19 Range/Units 21:26 04:45 04:45 RBC 2.67 L (4.30-5.90) m/uL Hgb 8.4 L (13.0-17.5) gm/dL Hct 24.5 L (39.0-53.0) % Plt Count 104 L (150-450) k/uL BUN 31 H (9-20) mg/dL Creatinine 1.41 H (0.66-1.25) mg/dL Glucose 144 H (74-99) mg/dL POC Glucose (mg/dL) 195 H (75-99) mg/dL 05/19/19 05/19/19 05/19/19 Range/Units 07:09 12:00 16:49 RBC (4.30-5.90) m/uL Hgb (13.0-17.5) gm/dL Hct (39.0-53.0) % Plt Count (150-450) k/uL BUN (9-20) mg/dL Creatinine (0.66-1.25) mg/dL Glucose (74-99) mg/dL POC Glucose (mg/dL) 136 H 105 H 124 H (75-99) mg/dL
[2019-05-19 20:41] LABS: Glucose,Whole Blood 186 mg/dL (75-99)
[2019-05-19] MEDS: SENNOSIDES-DOCUSATE SODIUM 1 EACH TAB PO SCH (20:57)
[2019-05-20 07:00] LABS: Glucose,Whole Blood 102 mg/dL (75-99)
[2019-05-20] MEDS: glipiZIDE 5 MG TAB PO SCH (07:07)
[2019-05-20] MEDS: PANTOPRAZOLE 40 MG TABLET PO SCH (07:07)
[2019-05-20] MEDS: INSULIN ASPART (NovoLOG) 100 UNIT/ML VIAL SQ SCH ×4 (07:52→20:42)
[2019-05-20] MEDS: IPRATROPIUM-ALBUTEROL 3 ML NEB INHALATION SCH ×4 (07:54→19:46)
[2019-05-20] MEDS: CLOPIDOGREL 75 MG TAB PO SCH (08:21)
[2019-05-20] MEDS: FLUTICASONE 50MCG/SPRAY NASAL 16GM EA NOSTRIL SCH (08:21)
[2019-05-20] MEDS: ATORVASTATIN 40 MG TAB PO SCH (08:21)
[2019-05-20] MEDS: HEPARIN SODIUM,PORCINE 5,000 UNIT/ML 1 ML VIAL SQ SCH ×3 (08:21→23:39)
[2019-05-20] MEDS: GABAPENTIN 300 MG CAP PO SCH ×2 (08:21→20:43)
[2019-05-20] MEDS: METOPROLOL TARTRATE 12.5 MG TAB PO SCH ×2 (08:21→20:47)
[2019-05-20] MEDS: ASPIRIN 325 MG TAB PO SCH (08:21)
[2019-05-20] MEDS: PIOGLITAZONE 15 MG TAB PO SCH (08:22)
[2019-05-20] MEDS: TAMSULOSIN 0.4 MG CAP.ER.24H PO SCH ×2 (08:22→20:44)
[2019-05-20] MEDS: traMADol 50 MG TAB PO SCH ×2 (08:22→20:44)
--- NOTE | 2019-05-20 08:52 | XR ---
EXAMINATION TYPE: XR chest 2V DATE OF EXAM: 05/20/2019 COMPARISON: 05/19/2019 TECHNIQUE: PA and lateral views submitted. HISTORY: Post cardiac surgery FINDINGS: Postsurgical change and cardiomegaly noted with bilateral consolidation and pleural effusion. Biapica l pleural thickening. Mild interstitial prominence. IMPRESSION: 1. Bilateral infiltrate and pleural effusion stable. Underlying venous congestion not excluded. Findi ngs are stable.
[2019-05-20 08:55] LABS: HCT 28.7 % (39.0-53.0); HGB 9.5 gm/dL (13.0-17.5); MCH 30.4 pg (25.0-35.0); Mean Platelet Volume 8.9; Platelet Count 144 k/uL (150-450); Poikilocytosis Slight; RBC 3.12 m/uL (4.30-5.90); RDW 14.7 % (11.5-15.5)
[2019-05-20 09:03] LABS: Calcium 9.2 mg/dL (8.4-10.2); Potassium 4.4 mmol/L (3.5-5.1)
--- NOTE | 2019-05-20 09:18 | P.PN ---
Subjective Progress Note Date: 05/20/19 Principal diagnosis: Triple-vessel coronary artery disease status post bypass grafting On 05/18/2019 patient seen in follow-up in the intensive care unit, his postoperative day 2 status post four-vessel coronary artery bypass grafting with MCRAE to LAD, left radial to the first OM, reverse SVG to OM 2 reverse SVG to the RCA. Patient is doing well, although complaining of some pain incisional site, but does not appear to be in any distress, and appears to be somewhat sleepy but arouses easily. Denies any difficulty breathing, he is on 2 L of oxygen with a pulse ox of 94%, no fever chills, hemodynamically stable, 0.9 normal saline at a rate of 30 ML per hour, no vasoactive, no other drips. His mediastinal chest tube has been discontinued, left chest tube remains in place, and there has been 675 ML of output in last 24 hours. Chest tube will remain in place for another [address] surgery, lung sounds are clear, diminished at the bases, ISS effort is 1000 mL today. He has been tolerating ambulation. Today's chest x- ray shows a component of volume overload, pleural effusions and associated atelectasis. today's labs have been reviewed, blood cell count of 11.4, hemoglobin of 9.3, electrolytes are within normal limits, slight improvement of patient's renal profile, BUN is 26 and creatinine is 1.31. Patient has mild generalized edema, patient is diuresing, and he is in -1500 mL fluid balance over the last 24 hours On 05/19/2019 patient seen in follow-up in the intensive care unit, this is postoperative day 3, status post four-vessel coronary artery bypass grafting. Patient is doing well, he is currently on 3 L of oxygen. His pulse ox is 96-98% , he is afebrile, hemodynamically patient is stable, no maintenance IVs, no drips. Denies any shortness of breath, chest x-ray has been reviewed still showing bilateral pleural effusions with bibasilar atelectasis, relatively stable compared to yesterday's exam. Lung sounds diminished at the bases, patient is working on his incentive spirometer, remains in sinus rhythm, with a controlled rate. Midsternal incision chest tube sites clean dry and intact, left neck incision clean dry and intact patient still has a left-sided chest tube in place and there has been 430 ML of serous drainage in the last 24 hours. no Nausea no vomiting, patient is tolerating oral diet, is non-oliguric. His labs have been reviewed, showing white blood cell count of 6.7, hemoglobin is 8.4, electrolytes were within normal limits, BUN is 31 and creatinine is 1.41 On 05/20/2019 patient seen in follow-up in the intensive care unit, this is postoperative day 4, status post four-vessel coronary artery bypass grafting, patient is doing well, he is on room air, no running IVs, he is awake and alert, oriented 3, no altered mentation, patient has been tolerating ambulation, he denies any shortness of breath, his pain is well controlled, his left-sided chest tube has been discontinued as well as his pacemaker wires, patient remains in sinus mechanism on the monitor, hemodynamically he remains stable, yesterday apparently patient developed diarrhea, C. diff test was negative, today his diarrhea has subsided. Today's labs have been reviewed, showing white blood cell count of 8.0, hemoglobin is 9.5, electrodes were within normal limits, no profile is improving, B1 is 31 and creatinine is 1.39. Chest x-ray showed bilateral infiltrates and pleural effusions which are stable in appearance, underlying venous congestion not excluded. Patient is maintaining negative fluid balance. Lung sounds are clear, diminished at the bases, patient is working on incentive spirometer, mild lower extremity edema. Midsternal incision, chest tube sites and left leg incisions are clean dry and intact. Objective - Vital Signs Vital signs: Vital Signs Temp 98.1 F 05/20/19 08:00 Pulse 91 05/20/19 08:00 Resp 15 05/20/19 08:00 BP 127/74 05/20/19 08:00 Pulse Ox 93 L 05/20/19 08:00 Intake & Output 05/19/19 05/20/19 05/20/19 18:59 06:59 18:59 Intake Total 700 0 Output Total 260 1425 100 Balance -260 -725 -100 Weight 96.6 kg Intake: Oral 700 0 Output: Chest Tube Drainage 20 Chest Tube Left 20 Urine 240 1425 100 Other: Voiding Method Urinal Urinal Urinal # Voids 1 1 # Bowel Movements 1 1 ABP, PAP, CO, CI - Last Documented Arterial Blood Pressure 107/55 Pulmonary Artery Pressure 28/10 Cardiac Output 8.6 Cardiac Index 4.2 - Exam GENERAL EXAM: Alert, very pleasant, 63-year-old white male on room air with a pulse ox of 93-95%, comfortable in no apparent distress. HEAD: Normocephalic/atraumatic. EYES: Normal reaction of pupils, equal size. Conjunctiva pink, sclera white. NOSE: Clear with pink turbinates. THROAT: No erythema or exudates. NECK: No masses, no JVD, no thyroid enlargement, no adenopathy. CHEST: No chest wall deformity. Symmetrical expansion. Midsternal incision is clean dry and intact, chest tube sites clean dry and intact. Mediastinal and left sided chest tube and pacemaker wires have been removed serosanguineous output no air leak LUNGS: Equal air entry with no crackles, wheeze, rhonchi or dullness. CVS: Regular rate and rhythm, normal S1 and S2, no gallops, no murmurs, no rubs ABDOMEN: Soft, nontender. No hepatosplenomegaly, normal bowel sounds, no guarding or rigidity. EXTREMITIES: No clubbing, no edema, no cyanosis, 2+ pulses and upper and lower extremities. Left leg incisions clean dry and intact MUSCULOSKELETAL: Muscle strength and tone normal. SPINE: No scoliosis or deformity SKIN: No rashes, CENTRAL NERVOUS SYSTEM: Alert and oriented -3. No focal deficits, tone is normal in all 4 extremities. PSYCHIATRIC: Alert and oriented -3. Appropriate affect. Intact judgment and insight. - Labs CBC & Chem 7: 05/20/19 08:29 05/20/19 08:29 Labs: Abnormal Lab Results - Last 24 Hours (Table) 05/19/19 05/19/19 05/19/19 Range/Units 12:00 16:49 20:40 RBC (4.30-5.90) m/uL Hgb (13.0-17.5) gm/dL Hct (39.0-53.0) % Plt Count (150-450) k/uL BUN (9-20) mg/dL Creatinine (0.66-1.25) mg/dL Glucose (74-99) mg/dL POC Glucose (mg/dL) 105 H 124 H 186 H (75-99) mg/dL 05/20/19 05/20/1920 Range/Units 06:59 08:29 08:29 RBC 3.12 L (4.30-5.90) m/uL Hgb 9.5 L (13.0-17.5) gm/dL Hct 28.7 L (39.0-53.0) % Plt Count 144 L (150-450) k/uL BUN 31 H (9-20) mg/dL Creatinine 1.39 H (0.66-1.25) mg/dL Glucose 168 H (74-99) mg/dL POC Glucose (mg/dL) 102 H (75-99) mg/dL Assessment and Plan Plan: Assessment: #1. Triple-vessel coronary artery disease status post four-vessel coronary artery bypass grafting postoperative day 4 #2. Routine postoperative ventilator management with extubation in less than 7 hours of OR exit time #3. History of coronary artery disease #4. Chronic kidney disease stage III #5. Diabetes mellitus type II #6. Hypertension #7. Hyperlipidemia #8. History of transitional cell carcinoma status post nephrectomy #9. History of benign prostatic hypertrophy #10. History of TIA #11. May-Thurner syndrome status post recent stenting of bilateral iliac veins #12. Obstructive sleep apnea on CPAP therapy Plan: Patient is doing well, he is now on room air, no respiratory difficulty, pain is well controlled, his chest tubes and pacemaker hours have been removed, Medina catheter has been removed, he is tolerating ambulation, doing very well, anticipate discharge home tomorrow. I performed a history & physical examination of the patient and discussed their management with my nurse practitioner, Shama Gonzalez. I reviewed the nurse practitioner's note and agree with the documented findings and plan of care. Lung sounds are positive for diminished breath sounds. The findings and the impression was discussed with the patient. I attest to the documentation by the nurse practitioner. Time with Patient: Less than 30
--- NOTE | 2019-05-20 10:17 | P.PN ---
Subjective Patient is seen in follow-up for acute kidney injury on chronic any disease. Renal function is stable. He has been voiding. Oral intake is fair. No vomiting or diarrhea. Overall feels better today. Vital signs are stable. General: The patient appeared well nourished and normally developed. HEENT: Head exam is unremarkable. Neck is without jugular venous distension. LUNGS: Breath sounds decreased. Chest tube noted. HEART: Rate and Rhythm are regular. First and second heart sounds normal. No murmurs, rubs or gallops. ABDOMEN: Abdominal exam reveals normal bowel sounds. Non-tender and non- distended. No evidence of peritonitis. EXTREMITITES: No clubbing, cyanosis, or edema. Objective - Vital Signs Vital signs: Vital Signs Temp 98.1 F 05/20/19 08:00 Pulse 82 05/20/19 09:00 Resp 15 05/20/19 08:00 BP 127/74 05/20/19 08:00 Pulse Ox 93 L 05/20/19 08:00 Intake & Output 05/19/19 05/20/19 05/20/19 18:59 06:59 18:59 Intake Total 700 250 Output Total 260 1425 100 Balance -260 -725 150 Weight 96.6 kg Intake: Oral 700 250 Output: Chest Tube Drainage 20 Chest Tube Left 20 Urine 240 1425 100 Other: Voiding Method Urinal Urinal Urinal # Voids 1 1 # Bowel Movements 1 1 ABP, PAP, CO, CI - Last Documented Arterial Blood Pressure 107/55 Pulmonary Artery Pressure 28/10 Cardiac Output 8.6 Cardiac Index 4.2 - Labs CBC & Chem 7: 05/20/19 08:29 05/20/19 08:29 Labs: Abnormal Lab Results - Last 24 Hours (Table) 05/19/19 05/19/19 05/19/19 Range/Units 12:00 16:49 20:40 RBC (4.30-5.90) m/uL Hgb (13.0-17.5) gm/dL Hct (39.0-53.0) % Plt Count (150-450) k/uL BUN (9-20) mg/dL Creatinine (0.66-1.25) mg/dL Glucose (74-99) mg/dL POC Glucose (mg/dL) 105 H 124 H 186 H (75-99) mg/dL 05/20/19 05/20/19 05/20/19 Range/Units 06:59 08:29 08:29 RBC 3.12 L (4.30-5.90) m/uL Hgb 9.5 L (13.0-17.5) gm/dL Hct 28.7 L (39.0-53.0) % Plt Count 144 L (150-450) k/uL BUN 31 H (9-20) mg/dL Creatinine 1.39 H (0.66-1.25) mg/dL Glucose 168 H (74-99) mg/dL POC Glucose (mg/dL) 102 H (75-99) mg/dL Assessment and Plan Plan: Assessment: 1. Acute kidney injury mostly prerenal secondary to hemodynamic instability. Renal function stable. 2. Chronic kidney disease stage III secondary to solitary right kidney. Baseline creatinine in the range of 1-1.2. 3. Coronary artery disease status post four-vessel bypass in 05/16/2019. 4. Mild hyperkalemia secondary to acute kidney injury. Improved. 5. Diabetes mellitus. 6. 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 Plan: Encourage oral intake. Avoid nephrotoxins. Continue to monitor renal function and urine output. Monitor for urinary retention. Continue Flomax. Potential discharge tomorrow.
[2019-05-20 12:15] LABS: Glucose,Whole Blood 71 mg/dL (75-99)
--- NOTE | 2019-05-20 12:20 | P.PN ---
Subjective Progress Note Date: 05/20/19 Principal diagnosis: Diffuse triple vessel coronary artery disease with totally occluded right coronary artery, preserved left ventricular function. 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 POD #4 quadruple coronary artery bypass grafting using the left internal mammary artery to the left anterior descending coronary artery, left radial artery from the aorta to the first obtuse marginal coronary artery, a reverse greater saphenous vein graft from the aorta to the second obtuse marginal coronary artery, a reverse greater saphenous vein graft from the aorta to the totally occluded right coronary artery system. Endoscopic harvesting of the left radial artery. Endoscopic harvesting of the left greater saphenous vein from the groin to the mid lower level. Intraoperative transesophageal echocardiogram and epi- aortic scanning. Intraoperative graft flow measurements using the [employer], a [employer]. Postoperative acute blood loss anemia, expected outcome of surgery secondary to hemodilution and cardiopulmonary bypass pump. Postoperative thrombocytopenia, expected outcome of surgery secondary to hemodilution. Postoperative hypotension, expected. Postoperative acute on chronic kidney disease, expected, likely pre-renal. The patient is sitting up to the bedside chair in the intensive care unit. He is in no acute distress. Transfer orders have been placed on 05/18/2019 to the cardiac stepdown unit and he is awaiting a bed. He reports that he had several episodes of diarrhea yesterday with abdominal cramping, reports that he has no further episodes of diarrhea since yesterday. Currently denies any complaints of pain or shortness of breath. He remains hemodynamically stable and is currently on no inotropic or pressor support. His left pleural chest tube was removed yesterday. He reports he ambulated in the intensive care unit hallway with minimal assistance from nursing staff yesterday 3-4 times. He remains afebrile. Oxygen saturations are 96% on room air and he is achieving 2001 L on his incentive spirometry. Objective - Vital Signs Vital signs: Vital Signs Temp 98.4 F 05/20/19 04:00 Pulse 86 05/20/19 07:00 Resp 10 L 05/20/19 07:00 BP 125/77 05/20/19 07:00 Pulse Ox 95 05/20/19 07:00 Intake & Output 05/19/19 05/20/19 05/20/19 18:59 06:59 18:59 Intake Total 700 0 Output Total 260 1425 Balance -260 -725 0 Weight 96.6 kg Intake: Oral 700 0 Output: Chest Tube Drainage 20 Chest Tube Left 20 Urine 240 1425 Other: Voiding Method Urinal Urinal Urinal # Voids 1 1 # Bowel Movements 1 1 ABP, PAP, CO, CI - Last Documented Arterial Blood Pressure 107/55 Pulmonary Artery Pressure 28/10 Cardiac Output 8.6 Cardiac Index 4.2 - Constitutional General appearance: Present: cooperative, no acute distress, obese - Respiratory Details: Lungs essentially clear throughout, diminished to his bilateral bases. Respirations are symmetrical and nonlabored. Oxygen saturation are 96% on room air and he is achieving 2000 mL on his incentive spirometry. No wheezes, rhonchi or crackles present. - Cardiovascular Details: Regular rhythm and rate. S1 and S2 present, negative for S3, gallop or murmur. Sternum is stable. Heart hugger is in place and he is demonstrating appropriate use. Knee-high AL hose and sequential compression devices in place from his bilateral lower extremities. Bedside telemetry showing normal sinus rhythm heart rate 98. - Gastrointestinal Gastrointestinal Comment(s): Abdomen is soft, nontender and nondistended. Active bowel sounds present in all 4 abdominal quadrants. No guarding or rigidity. No organomegaly appreciated. Passing flatus. - Genitourinary Genitourinary Comment(s): Voiding clear lisa urine. - Integumentary Integumentary Comment(s): Skin is warm and dry. No clubbing or cyanosis is present. Midline sternal incision is clean, dry and approximated. No drainage or redness is present. Gauze dressing is clean, dry and in place. Left radial artery harvest sites are clean, dry and approximated. No drainage or redness is present. Suture to his proximal left arm incision is clean and intact. Left lower extremity EVH site is clean, dry and approximated. No drainage or redness is present. Dressing is clean and dry. - Neurologic Neurologic Comment(s): No focal deficits. Neurologic: Present: CNII-XII intact - Musculoskeletal Musculoskeletal: Present: gait normal (Normal for patient, Charcot right foot.), generalized weakness - Psychiatric Psychiatric: Present: A&O x's 3, appropriate affect, intact judgment & insight - Allied health notes Allied health notes reviewed: nursing - Labs CBC & Chem 7: 05/20/19 08:29 05/20/19 08:29 Labs: Abnormal Lab Results - Last 24 Hours (Table) 05/19/19 05/19/19 05/19/19 Range/Units 12:00 16:49 20:40 POC Glucose (mg/dL) 105 H 124 H 186 H (75-99) mg/dL 05/20/19 Range/Units 06:59 POC Glucose (mg/dL) 102 H (75-99) mg/dL - Imaging and Cardiology Chest x-ray: report reviewed, image reviewed Assessment and Plan Assessment: 1. Diffuse triple-vessel coronary artery disease with totally occluded right coronary artery, status post four-vessel CABG 2. History of coronary artery disease with stent placement to his RCA in 2013 3. Stroke in September 2016 with left vertebral artery stenosis 4. Single kidney, chronic kidney disease stage III 5. Tobacco abuse with recent cessation, preoperative FEV1 103% of predicted 6. Obstructive sleep apnea without CPAP use, status post UP3 surgery 7. Type 2 diabetes mellitus with preoperative hemoglobin A1c 6.2% 8. Hypertension 9. Hyperlipidemia 10. May-Thurner syndrome status post recent stenting of bilateral iliac veins 11. Remote history of pneumonia 12. Transitional cell carcinoma 19 years ago 13. Syncope in November 2018 14. Charcot foot with ambulation with a cane 15. Family history of premature coronary artery disease 16. Postoperative acute blood loss anemia and postoperative thrombocytopenia 17. Postoperative hypotension 18. Postoperative acute on chronic kidney disease Plan: 1. Continue aspirin, statin, Plavix, beta myriam. Will increase beta myriam as tolerated. 2. Encourage incentive spirometry use 10 times every hour while awake. 3. Encourage continued smoking cessation. Bronchodilators management per pulmonology. 4. Increase activity as tolerated, ambulate as tolerated. Patient will need cane to be brought from home. PT/OT/cardiac rehab following. 5. Discontinue Senokot due to complaints of diarrhea. 6. Will monitor daily labs and chest x-rays. Electrolyte replacement per protocol. No transfusion. 7. Pain control with current medication regimen. No Toradol secondary to solitary kidney. Change tramadol to the patient's home dose 100 mg by mouth twice a day in anticipation of discharge. 8. Continue to avoid nephrotoxic agents. 9. Diabetic management per primary care service. The patient is requesting that his Jardiance be restarted. 10. May bladder scan and straight cath for > 300 mL residual. Continue his home dose of Flomax to twice daily. 11. Transfer orders for 3S cardiac stepdown unit placed 05/18/2019, transfer when bed available. 12. Discharge planning in progress. Anticipate discharge to home with home care in the next 24 hours with home health care. 13. More recommendations to follow based on patient's clinical course. Time with Patient: Greater than 30
--- NOTE | 2019-05-20 13:00 | P.PN ---
Subjective This is Isa Ayala PA-C dictating a progress note on this patient The patient was interviewed and examined by me as well as by Dr. Dinero Case discussed with Dr. Dinero and he agrees with the plan of care HPI/interval history Patient is a 63-year-old male with CAD status post CABG 4. He has been walking around the ICU. Doing better today. Diarrhea has improved. No chest pain or shortness of breath EXAMINATION Temperature 98.3F, pulse in the 70s, respirations 16, blood pressure 100/58, oxygen saturation 92% on room air Patient seen and examined, appears well, in no acute distress Heart is regular, no audible murmurs Lungs are clear to auscultation bilaterally REVIEW OF LABS, ECG WBC 8, hemoglobin 9.5, platelets 144, BUN 31, creatinine 1.39 IMPRESSION / ASSESSMENT: Triple-vessel CAD status post CABG 4 History of CVA CKD, BUN and creatinine improving Obstructive sleep apnea Hypertension Dyslipidemia Diabetes Anemia Diarrhea, improved Plan Continue current regimen Objective - Vital Signs Vital signs: Vital Signs Temp 98.3 F 05/20/19 12:00 Pulse 71 05/20/19 12:00 Resp 16 05/20/19 12:00 BP 100/58 05/20/19 12:00 Pulse Ox 92 L 05/20/19 12:00 Intake & Output 05/19/19 05/20/19 05/20/19 18:59 06:59 18:59 Intake Total 700 750 Output Total 260 1425 100 Balance -260 -725 650 Weight 96.6 kg Intake: Oral 700 750 Output: Chest Tube Drainage 20 Chest Tube Left 20 Urine 240 1425 100 Other: Voiding Method Urinal Urinal Urinal # Voids 1 1 1 # Bowel Movements 1 1 ABP, PAP, CO, CI - Last Documented Arterial Blood Pressure 107/55 Pulmonary Artery Pressure 28/10 Cardiac Output 8.6 Cardiac Index 4.2 - Labs CBC & Chem 7: 05/20/19 08:29 05/20/19 08:29 Labs: Abnormal Lab Results - Last 24 Hours (Table) 05/19/19 05/19/19 05/20/19 Range/Units 16:49 20:40 06:59 RBC (4.30-5.90) m/uL Hgb (13.0-17.5) gm/dL Hct (39.0-53.0) % Plt Count (150-450) k/uL BUN (9-20) mg/dL Creatinine (0.66-1.25) mg/dL Glucose (74-99) mg/dL POC Glucose (mg/dL) 124 H 186 H 102 H (75-99) mg/dL 05/20/19 05/20/19 05/20/19 Range/Units 08:29 08:29 12:14 RBC 3.12 L (4.30-5.90) m/uL Hgb 9.5 L (13.0-17.5) gm/dL Hct 28.7 L (39.0-53.0) % Plt Count 144 L (150-450) k/uL BUN 31 H (9-20) mg/dL Creatinine 1.39 H (0.66-1.25) mg/dL Glucose 168 H (74-99) mg/dL POC Glucose (mg/dL) 71 L (75-99) mg/dL
--- NOTE | 2019-05-20 13:42 | P.PN ---
Subjective This is a pleasant 63 years old male with past medical history of coronary artery disease status post right coronary artery stent in the past, status diabetes mellitus, hypertension, hyperlipidemia, sleep apnea on CPAP/BiPAP, CVA/TIA, GI bleed, peripheral neuropathy, left kidney cancer status post nephrectomy, Chronic kidney disease stage III, Non-Hodgkin lymphoma which is treated with no residual defect as per patient, right foot Charcot deformity with swelling and pain peripheral vascular disease On 01/19/2019 patient underwent cardiac cath for atypical chest pain with positive stress test for ischemia, showing severe disease involving the left circumflex coronary branches and intermediate to severe disease involving the left anterior descending artery and chronic total occlusion of the RCA with collateral arteries. For this reason patient was referred to cardiothoracic surgery for further evaluation. Patient is a status post coronary artery bypass grafting. Today is postoperative day #1. Patient in the ICU. Vitals are stable. wbc of 10 k, hemoglobin 10.3, potassium 5.3, sodium 136, creatinine 1.3, with baseline fluctuates between 1.0 up to 1.4. sugar controlled. liver enzymes not elevated. chest x-ray showing small pleural effusion Patient currently on small dose of insulin drip, he is taking trulicity at home once a week This morning patient was sitting in chair in the ICU. No specific complaints. Patient to his breakfast with no difficulty. No chest pain or dyspnea. 05/18/2019 Patient sitting in chair with no complaints. No chest pain or dyspnea. Hemodynamically stable and labs are stable. Creatinine is 1.3 today. Sugar controlled. He is on a sliding drip. Patient can be switched to Actos and sli ding scale. Patient can resume other diabetes medication later went sugar is more followed closely. Vitals stable. Continue with aspirin and Plavix 05/19/2019 Patient is lying in bed, no chest pain or dyspnea. Vitals are stable. WBC 6.7K, hemoglobin 8.4, platelets 104, creatinine 1.4 similar to previous days, Sugar is running between 126-206. This morning was 136. He remains on glipizide 5 mg twice a day and Actos. Discontinue scheduled insulin and continue with insulin sliding scale. Patient is been followed by several consultants. 05/20/2019 Patient continued to improve, he is moving more easily in his room, his breathing more comfortably. No specific complaints. His sugars controlled. He was to restart his home medication of gardiance, he brought his medication from home which is going to be restarted first dose tomorrow. Discontinue glipizide. Patient said he will follow-up with his primary doctor upon discharge. He is hemodynamically stable creatinine is stable. Objective - Vital Signs Vital signs: Vital Signs Temp 98.3 F 05/20/19 12:00 Pulse 71 05/20/19 12:00 Resp 16 05/20/19 12:00 BP 100/58 05/20/19 12:00 Pulse Ox 92 L 05/20/19 12:00 Intake & Output 05/19/19 05/20/19 05/20/19 18:59 06:59 18:59 Intake Total 700 750 Output Total 260 1425 100 Balance -260 -725 650 Weight 96.6 kg Intake: Oral 700 750 Output: Chest Tube Drainage 20 Chest Tube Left 20 Urine 240 1425 100 Other: Voiding Method Urinal Urinal Urinal # Voids 1 1 1 # Bowel Movements 1 1 ABP, PAP, CO, CI - Last Documented Arterial Blood Pressure 107/55 Pulmonary Artery Pressure 28/10 Cardiac Output 8.6 Cardiac Index 4.2 - Exam GENERAL: The patient is alert and oriented x3, not in any acute distress. Well developed, well nourished. HEENT: Pupils are round and equally reacting to light. EOMI. No scleral icterus. No conjunctival pallor. Normocephalic, atraumatic. No pharyngeal erythema. No thyromegaly. CARDIOVASCULAR: S1 and S2 present. No murmurs, rubs, or gallops. PULMONARY: Chest is clear to auscultation, no wheezing or crackles. ABDOMEN: Soft, nontender, nondistended, normoactive bowel sounds. No palpable organomegaly. MUSCULOSKELETAL: No joint swelling or deformity. EXTREMITIES: No cyanosis, clubbing, or pedal edema. NEUROLOGICAL: Gross neurological examination did not reveal any focal deficits. SKIN: No rashes. No petechiae - Labs CBC & Chem 7: 05/20/19 08:29 05/20/19 08:29 Labs: Abnormal Lab Results - Last 24 Hours (Table) 05/19/19 05/19/19 05/20/19 Range/Units 16:49 20:40 06:59 RBC (4.30-5.90) m/uL Hgb (13.0-17.5) gm/dL Hct (39.0-53.0) % Plt Count (150-450) k/uL BUN (9-20) mg/dL Creatinine (0.66-1.25) mg/dL Glucose (74-99) mg/dL POC Glucose (mg/dL) 124 H 186 H 102 H (75-99) mg/dL 05/20/19 05/20/19 05/20/19 Range/Units 08:29 08:29 12:14 RBC 3.12 L (4.30-5.90) m/uL Hgb 9.5 L (13.0-17.5) gm/dL Hct 28.7 L (39.0-53.0) % Plt Count 144 L (150-450) k/uL BUN 31 H (9-20) mg/dL Creatinine 1.39 H (0.66-1.25) mg/dL Glucose 168 H (74-99) mg/dL POC Glucose (mg/dL) 71 L (75-99) mg/dL Assessment and Plan Assessment: Coronary artery disease, with recent history of cardiac cath showing severe coronary artery disease involving the circumflex and moderate to severe involving the left anterior descending artery and total occlusion of the RCA. Diabetes mellitus Hypertension Hyperlipidemia Status post left nephrectomy for history of cancer Chronic kidney disease stage III Non-Hodgkin lymphoma with no residual effects after treatment right foot Charcot deformity with swelling and pain Peripheral vascular disease Plan: This is a pleasant 63 years old male with triple-vessel coronary artery disease status post CABG. Patient remains in the ICU. Patient is followed closely by primary thoracic surgery team. Keep monitoring blood glucose. Cardiology and pulmonary team R following the case as well. Continue with aspirin, and Plavix. Pain management Labs and medication were reviewed.. Continue same treatment. Continue with symptomatic treatment. Resume home medication. Monitor lytes and vitals. DVT and GI prophylaxis. Further recommendations of the clinical course of the patient DVT prophylaxis: Subcutaneous heparin GI Prophylaxis: Protonix
[2019-05-20] MEDS: ACETAMINOPHEN TAB 500 MG TAB PO PRN (15:25)
[2019-05-20] MEDS: amLODIPine 2.5 MG TAB PO SCH (15:25)
[2019-05-20 17:09] LABS: Glucose,Whole Blood 81 mg/dL (75-99)
[2019-05-20 20:40] LABS: Glucose,Whole Blood 139 mg/dL (75-99)
[2019-05-21] MEDS: ACETAMINOPHEN TAB 500 MG TAB PO PRN (04:09)
--- NOTE | 2019-05-21 06:39 | XR ---
EXAMINATION TYPE: XR chest 2V DATE OF EXAM: 05/21/2019 HISTORY: Postoperative CABG. REFERENCE: Previous study dated 05/20/2019. FINDINGS: There has been a midline sternotomy. There is platelike atelectasis of the left lung base. There is minimal atelectasis at the right lung base. There are small, bilateral pleural effusions. The heart is mildly prominent. IMPRESSION: CONTINUING POSTSURGICAL CHANGE, ESSENTIALLY UNCHANGED FROM PREVIOUS.
[2019-05-21 06:40] LABS: Glucose,Whole Blood 111 mg/dL (75-99)
[2019-05-21] MEDS: INSULIN ASPART (NovoLOG) 100 UNIT/ML VIAL SQ SCH ×2 (06:45→12:09)
[2019-05-21] MEDS: PANTOPRAZOLE 40 MG TABLET PO SCH (06:52)
[2019-05-21 06:56] LABS: HGB 8.7 gm/dL (13.0-17.5); MCH 30.4 pg (25.0-35.0); MCHC 33.4 g/dL (31.0-37.0); Mean Platelet Volume 8.2; Platelet Count 171 k/uL (150-450); Poikilocytosis Slight; RBC 2.86 m/uL (4.30-5.90); RDW 14.7 % (11.5-15.5); WBC 6.2 k/uL (3.8-10.6)
[2019-05-21] MEDS ORDERED: glipiZIDE 10 MG TAB PO PRN (07:00)
[2019-05-21] MEDS ORDERED: glipiZIDE 5 MG TAB PO PRN (07:00)
[2019-05-21] MEDS ORDERED: HYDROcodone/APAP 5-325MG 1 EACH TAB PO PRN (07:14)
[2019-05-21 07:28] LABS: Calcium 8.5 mg/dL (8.4-10.2); Potassium 4.3 mmol/L (3.5-5.1)
[2019-05-21] MEDS ORDERED: HYDROcodone/APAP 7.5-325MG 1 EACH TAB PO ONE (07:32)
[2019-05-21] MEDS: IPRATROPIUM-ALBUTEROL 3 ML NEB INHALATION SCH ×2 (08:08→11:43)
[2019-05-21] MEDS: PIOGLITAZONE 15 MG TAB PO SCH (08:33)
[2019-05-21] MEDS: METOPROLOL TARTRATE 12.5 MG TAB PO SCH (08:34)
[2019-05-21] MEDS: GABAPENTIN 300 MG CAP PO SCH (08:34)
[2019-05-21] MEDS: CLOPIDOGREL 75 MG TAB PO SCH (08:34)
[2019-05-21] MEDS: ATORVASTATIN 40 MG TAB PO SCH (08:34)
[2019-05-21] MEDS: HEPARIN SODIUM,PORCINE 5,000 UNIT/ML 1 ML VIAL SQ SCH (08:34)
[2019-05-21] MEDS: amLODIPine 2.5 MG TAB PO SCH (08:34)
[2019-05-21] MEDS: ASPIRIN 325 MG TAB PO SCH (08:34)
[2019-05-21] MEDS: FLUTICASONE 50MCG/SPRAY NASAL 16GM EA NOSTRIL SCH (08:35)
[2019-05-21] MEDS: traMADol 50 MG TAB PO SCH (08:38)
[2019-05-21] MEDS: TAMSULOSIN 0.4 MG CAP.ER.24H PO SCH (08:38)
[2019-05-21 08:43] VITALS: RESP 20
--- NOTE | 2019-05-21 11:34 | P.PN ---
Subjective Progress Note Date: 05/21/19 Follow-up for acute kidney injury. Doing better. No nausea vomiting diarrhea. Objective - Vital Signs Vital signs: Vital Signs Temp 98.1 F 05/21/19 08:42 Pulse 77 05/21/19 08:42 Resp 20 05/21/19 08:42 BP 111/59 05/21/19 08:42 Pulse Ox 99 05/21/19 08:42 Intake & Output 05/20/19 05/21/19 05/21/19 18:59 06:59 18:59 Intake Total 1120 236 120 Output Total 400 500 Balance 720 -264 120 Weight 95.9 kg Intake: IV 10 Invasive Line 1 10 Oral 1110 236 120 Output: Urine 400 500 Stool 0 Other: Voiding Method Urinal Urinal Urinal # Voids 1 ABP, PAP, CO, CI - Last Documented Arterial Blood Pressure 107/55 Pulmonary Artery Pressure 28/10 Cardiac Output 8.6 Cardiac Index 4.2 - Exam No acute distress S1-S2 heard Decreased breath sounds Abdomen soft Trace edema - Labs CBC & Chem 7: 05/21/19 06:06 05/21/19 06:06 Labs: Abnormal Lab Results - Last 24 Hours (Table) 05/20/19 05/20/19 05/21/19 Range/Units 12:14 20:39 06:06 RBC 2.86 L (4.30-5.90) m/uL Hgb 8.7 L (13.0-17.5) gm/dL Hct 26.0 L (39.0-53.0) % BUN (9-20) mg/dL Creatinine (0.66-1.25) mg/dL POC Glucose (mg/dL) 71 L 139 H (75-99) mg/dL 05/21/19 05/21/19 Range/Units 06:06 06:39 RBC (4.30-5.90) m/uL Hgb (13.0-17.5) gm/dL Hct (39.0-53.0) % BUN 31 H (9-20) mg/dL Creatinine 1.36 H (0.66-1.25) mg/dL POC Glucose (mg/dL) 111 H (75-99) mg/dL Assessment and Plan Assessment: #1 nonoliguric acute kidney injury secondary to ischemic ATN hemodynamic instability. Renal function stable. #2 chronic kidney disease stage III secondary to solitary kidney with a baseline creatinine of 1.1-1.2 MG per DL. #3 transitional cell cancer status post left nephrectomy in 1998. #4 status post coronary artery bypass #5 diabetes Plan: #1 renal function stable. #2 avoid nephrotoxic agents and hypotensive episodes #3 follow-up with Dr. Mustafa as outpatient after discharge
[2019-05-21 11:46] LABS: Glucose,Whole Blood 114 mg/dL (75-99)
--- NOTE | 2019-05-21 12:13 | P.PN ---
Subjective Progress Note Date: 05/21/19 Principal diagnosis: Triple-vessel coronary artery disease status post coronary artery bypass grafting The patient is seen today 05/21/2019 in follow-up on the selective care unit. This postoperative day 5 status post four-vessel coronary artery bypass grafting with MCRAE to LAD, left radial to the first OM, reverse SVG to OM 2 reverse SVG to the RCA. He is doing very well. He is currently sitting up in a chair at the bedside. Awake and alert in no acute distress. He's been up ambulating with assistance. Maintaining O2 saturations up to 99% on room air. Afebrile. Hemodynamically stable. Chest x-ray shows platelike atelectasis at the left lung base. Minimal atelectasis of the right lung base. Small effusions. White count 6.2. Hemoglobin 8.7. Creatinine 1.36. He continues to work well with the incentive spirometer. Remains on bronchodilators. Objective - Vital Signs Vital signs: Vital Signs Temp 98.1 F 05/21/19 08:42 Pulse 88 05/21/19 11:52 Resp 20 05/21/19 08:42 BP 111/59 05/21/19 08:42 Pulse Ox 99 05/21/19 08:42 Intake & Output 05/20/19 05/21/19 05/21/19 18:59 06:59 18:59 Intake Total 1120 236 120 Output Total 400 500 Balance 720 -264 120 Weight 95.9 kg Intake: IV 10 Invasive Line 1 10 Oral 1110 236 120 Output: Urine 400 500 Stool 0 Other: Voiding Method Urinal Urinal Urinal # Voids 1 ABP, PAP, CO, CI - Last Documented Arterial Blood Pressure 107/55 Pulmonary Artery Pressure 28/10 Cardiac Output 8.6 Cardiac Index 4.2 - Exam GENERAL EXAM: Alert, very pleasant, 63-year-old male patient on room air with a pulse ox of 99 %, comfortable in no apparent distress. HEAD: Normocephalic/atraumatic. EYES: Normal reaction of pupils, equal size. Conjunctiva pink, sclera white. NOSE: Clear with pink turbinates. THROAT: No erythema or exudates. NECK: No masses, no JVD, no thyroid enlargement, no adenopathy. CHEST: No chest wall deformity. Symmetrical expansion. Midsternal incision is clean dry and intact. LUNGS: Equal air entry with crackles in the bilateral posterior bases CVS: Regular rate and rhythm, normal S1 and S2, no gallops, no murmurs, no rubs ABDOMEN: Soft, nontender. No hepatosplenomegaly, normal bowel sounds, no guarding or rigidity. EXTREMITIES: No clubbing, no edema, no cyanosis, 2+ pulses and upper and lower extremities. Left leg incisions clean dry and intact MUSCULOSKELETAL: Muscle strength and tone normal. SPINE: No scoliosis or deformity SKIN: No rashes, CENTRAL NERVOUS SYSTEM: No focal deficits, tone is normal in all 4 extremities. PSYCHIATRIC: Alert and oriented -3. Appropriate affect. Intact judgment and insight. - Labs CBC & Chem 7: 05/21/19 06:06 05/21/19 06:06 Labs: Abnormal Lab Results - Last 24 Hours (Table) 05/20/19 05/20/19 05/21/19 Range/Units 12:14 20:39 06:06 RBC 2.86 L (4.30-5.90) m/uL Hgb 8.7 L (13.0-17.5) gm/dL Hct 26.0 L (39.0-53.0) % BUN (9-20) mg/dL Creatinine (0.66-1.25) mg/dL POC Glucose (mg/dL) 71 L 139 H (75-99) mg/dL 05/21/19 05/21/19 05/21/19 Range/Units 06:06 06:39 11:44 RBC (4.30-5.90) m/uL Hgb (13.0-17.5) gm/dL Hct (39.0-53.0) % BUN 31 H (9-20) mg/dL Creatinine 1.36 H (0.66-1.25) mg/dL POC Glucose (mg/dL) 111 H 114 H (75-99) mg/dL Assessment and Plan Assessment: #1. Triple-vessel coronary artery disease status post four-vessel coronary artery bypass grafting postoperative day #5 #2. Routine postoperative ventilator management with extubation in less than 7 hours of OR exit time #3. History of coronary artery disease #4. Chronic kidney disease stage III #5. Diabetes mellitus type II #6. Hypertension #7. Hyperlipidemia #8. History of transitional cell carcinoma status post nephrectomy #9. History of benign prostatic hypertrophy #10. History of TIA #11. May-Thurner syndrome status post recent stenting of bilateral iliac veins #12. Obstructive sleep apnea on CPAP therapy Plan: The patient was seen and evaluated by Dr. Miramontes. Chest x-ray and labs removed. He is doing quite well from the pulmonary standpoint. Currently on room air. Working well with the incentive spirometer. Up ambulating in the hallway with assistance. He is hoping to go home today. I, the cosigning physician, performed a history & physical examination of the patient. Lungs sounds with crackles in the bilateral posterior bases. Maintaining good O2 saturations in the 90s on room air. I discussed the assessment and plan of care with my nurse practitioner, Carol Sauceda. I attest to the above note as dictated by her.
[2019-05-21 12:21] VITALS: BP 95/60; PULSE 71; TEMP 97.1
--- NOTE | 2019-05-21 12:52 | P.PN ---
Subjective This is a pleasant 63 years old male with past medical history of coronary artery disease status post right coronary artery stent in the past, status diabetes mellitus, hypertension, hyperlipidemia, sleep apnea on CPAP/BiPAP, CVA/TIA, GI bleed, peripheral neuropathy, left kidney cancer status post nephrectomy, Chronic kidney disease stage III, Non-Hodgkin lymphoma which is treated with no residual defect as per patient, right foot Charcot deformity with swelling and pain peripheral vascular disease On 01/19/2019 patient underwent cardiac cath for atypical chest pain with positive stress test for ischemia, showing severe disease involving the left circumflex coronary branches and intermediate to severe disease involving the left anterior descending artery and chronic total occlusion of the RCA with collateral arteries. For this reason patient was referred to cardiothoracic surgery for further evaluation. Patient is a status post coronary artery bypass grafting. Today is postoperative day #1. Patient in the ICU. Vitals are stable. wbc of 10 k, hemoglobin 10.3, potassium 5.3, sodium 136, creatinine 1.3, with baseline fluctuates between 1.0 up to 1.4. sugar controlled. liver enzymes not elevated. chest x-ray showing small pleural effusion Patient currently on small dose of insulin drip, he is taking trulicity at home once a week This morning patient was sitting in chair in the ICU. No specific complaints. Patient to his breakfast with no difficulty. No chest pain or dyspnea. 05/18/2019 Patient sitting in chair with no complaints. No chest pain or dyspnea. Hemodynamically stable and labs are stable. Creatinine is 1.3 today. Sugar controlled. He is on a sliding drip. Patient can be switched to Actos and sli ding scale. Patient can resume other diabetes medication later went sugar is more followed closely. Vitals stable. Continue with aspirin and Plavix 05/19/2019 Patient is lying in bed, no chest pain or dyspnea. Vitals are stable. WBC 6.7K, hemoglobin 8.4, platelets 104, creatinine 1.4 similar to previous days, Sugar is running between 126-206. This morning was 136. He remains on glipizide 5 mg twice a day and Actos. Discontinue scheduled insulin and continue with insulin sliding scale. Patient is been followed by several consultants. 05/20/2019 Patient continued to improve, he is moving more easily in his room, his breathing more comfortably. No specific complaints. His sugars controlled. He was to restart his home medication of gardiance, he brought his medication from home which is going to be restarted first dose tomorrow. Discontinue glipizide. Patient said he will follow-up with his primary doctor upon discharge. He is hemodynamically stable creatinine is stable. 05/21/2019 Patient's keep doing panel well. No chest pain or abdominal pain. No change in urine or bowel habits. No fever. He is hemodynamically stable. CBC and BMP were reviewed, creatinine at baseline of 1.36, sugar is running 81, 139, 111, 114. Discussed the case with vascular surgery team and don, recommend the patient to continue with Actos and jardiance and keep a log of his blood sugar were taken checking 4 times a day before each meal and bedtime and been given numbers to his primary care doctor to see if he can start the other diabetes medication like trulicity Patient is eating well, has regular bowel movements. And he states that he is ready to go home Objective - Vital Signs Vital signs: Vital Signs Temp 97.1 F L 05/21/19 12:00 Pulse 71 05/21/19 12:00 Resp 20 05/21/19 12:00 BP 95/60 05/21/19 12:00 Pulse Ox 97 05/21/19 12:00 Intake & Output 05/20/19 05/21/19 05/21/19 18:59 06:59 18:59 Intake Total 1120 236 120 Output Total 400 500 Balance 720 -264 120 Weight 95.9 kg Intake: IV 10 Invasive Line 1 10 Oral 1110 [id number] 120 Output: Urine 400 500 Stool 0 Other: Voiding Method Urinal Urinal Urinal # Voids 1 ABP, PAP, CO, CI - Last Documented Arterial Blood Pressure 107/55 Pulmonary Artery Pressure 28/10 Cardiac Output 8.6 Cardiac Index 4.2 - Exam GENERAL: The patient is alert and oriented x3, not in any acute distress. Well developed, well nourished. HEENT: Pupils are round and equally reacting to light. EOMI. No scleral icterus. No conjunctival pallor. Normocephalic, atraumatic. No pharyngeal erythema. No thyromegaly. CARDIOVASCULAR: S1 and S2 present. No murmurs, rubs, or gallops. PULMONARY: Chest is clear to auscultation, no wheezing or crackles. ABDOMEN: Soft, nontender, nondistended, normoactive bowel sounds. No palpable organomegaly. MUSCULOSKELETAL: No joint swelling or deformity. EXTREMITIES: No cyanosis, clubbing, or pedal edema. NEUROLOGICAL: Gross neurological examination did not reveal any focal deficits. SKIN: No rashes. No petechiae - Labs CBC & Chem 7: 05/21/19 06:06 05/21/19 06:06 Labs: Abnormal Lab Results - Last 24 Hours (Table) 05/20/19 05/21/19 05/21/19 Range/Units 20:39 06:06 06:06 RBC 2.86 L (4.30-5.90) m/uL Hgb 8.7 L (13.0-17.5) gm/dL Hct 26.0 L (39.0-53.0) % BUN 31 H (9-20) mg/dL Creatinine 1.36 H (0.66-1.25) mg/dL POC Glucose (mg/dL) 139 H (75-99) mg/dL 05/21/19 05/21/19 Range/Units 06:39 11:44 RBC (4.30-5.90) m/uL Hgb (13.0-17.5) gm/dL Hct (39.0-53.0) % BUN (9-20) mg/dL Creatinine (0.66-1.25) mg/dL POC Glucose (mg/dL) 111 H 114 H (75-99) mg/dL Assessment and Plan Assessment: Coronary artery disease, with recent history of cardiac cath showing severe coronary artery disease involving the circumflex and moderate to severe involving the left anterior descending artery and total occlusion of the RCA. Diabetes mellitus Hypertension Hyperlipidemia Status post left nephrectomy for history of cancer Chronic kidney disease stage III Non-Hodgkin lymphoma with no residual effects after treatment right foot Charcot deformity with swelling and pain Peripheral vascular disease Plan: This is a pleasant 63 years old male with triple-vessel coronary artery disease status post CABG. is in the select unit. Patient is followed closely by primary thoracic surgery team. Keep monitoring blood glucose. Cardiology and pulmonary team R following the case as well. Continue with aspirin, and Plavix. Pain management. continue with Actos and jardiance and keep a log of his blood sugar and follow-up with his PCP to see if he will need trulicity or other diabetes medication Labs and medication were reviewed.. Continue same treatment. Continue with symptomatic treatment. Resume home medication. Monitor lytes and vitals. DVT and GI prophylaxis. Further recommendations of the clinical course of the patient DVT prophylaxis: Subcutaneous heparin GI Prophylaxis: Protonix Thank you for consulting us, please feel free to contact us for any further question or clarification
--- NOTE | 2019-05-21 16:27 | P.PN ---
Subjective This is Isa Ayala PA-C dictating a progress note on this patient The patient was interviewed and examined by me as well as by Dr. Dinero Case discussed with Dr. Dinero and he agrees with the plan of care HPI/interval history Patient is a 63-year-old male with CAD who is status post CABG 4. He has been removed to the telemetry unit. He is doing well. Denies any chest pain or shortness of breath. Feels he is ready to go home. EXAMINATION Temperature 97.1F, pulse 70, respirations 20, blood pressure 95/60, oxygen saturation 97% on room air Patient seen and examined in his room, in no acute distress Heart is regular, no audible murmurs Lungs are clear to auscultation bilaterally REVIEW OF LABS, ECG WBC 6.2, hemoglobin 8.7, platelets 171, potassium 4.3, BUN 31, creatinine 1.36 IMPRESSION / ASSESSMENT: Triple-vessel CAD status post CABG 4 History of CVA CKD, BUN and creatinine improving Obstructive sleep apnea Hypertension Dyslipidemia Diabetes Anemia, stable PLAN: Continue maximal medical treatment for CAD including aspirin, Plavix, beta blockers, and antihypertensive therapy Objective - Vital Signs Vital signs: Vital Signs Temp 97.1 F L 05/21/19 12:00 Pulse 71 05/21/19 12:00 Resp 20 05/21/19 12:00 BP 95/60 05/21/19 12:00 Pulse Ox 97 05/21/19 12:00 Intake & Output 05/20/19 05/21/19 05/21/19 18:59 06:59 18:59 Intake Total 1120 236 120 Output Total 400 500 Balance 720 -264 120 Weight 95.9 kg Intake: IV 10 Invasive Line 1 10 Oral 1110 [id number] 120 Output: Urine 400 500 Stool 0 Other: Voiding Method Urinal Urinal Urinal # Voids 1 2 ABP, PAP, CO, CI - Last Documented Arterial Blood Pressure 107/55 Pulmonary Artery Pressure 28/10 Cardiac Output 8.6 Cardiac Index 4.2 - Labs CBC & Chem 7: 05/21/19 06:06 05/21/19 06:06 Labs: Abnormal Lab Results - Last 24 Hours (Table) 05/20/19 05/21/19 05/21/19 Range/Units 20:39 06:06 06:06 RBC 2.86 L (4.30-5.90) m/uL Hgb 8.7 L (13.0-17.5) gm/dL Hct 26.0 L (39.0-53.0) % BUN 31 H (9-20) mg/dL Creatinine 1.36 H (0.66-1.25) mg/dL POC Glucose (mg/dL) 139 H (75-99) mg/dL 05/21/19 05/21/19 Range/Units 06:39 11:44 RBC (4.30-5.90) m/uL Hgb (13.0-17.5) gm/dL Hct (39.0-53.0) % BUN (9-20) mg/dL Creatinine (0.66-1.25) mg/dL POC Glucose (mg/dL) 111 H 114 H (75-99) mg/dL
--- NOTE | 2019-05-21 20:24 | P.DS ---
Providers Date of admission: 05/16/19 05:33 Expected date of discharge: 05/21/19 Attending physician: Elyssa Jade Consults: 05/16/19 16:29 Consult Physician Routine Consulting Provider: Stephan Miramontes Consult Reason/Comments: Leave Specialist Consult: post cardiac surgery Do you want consulting provider notified?: Yes Consult Physician Routine Consulting Provider: Jet Montes Consult Reason/Comments: [facility] patient Do you want consulting provider notified?: Yes Consult Physician Routine Consulting Provider: Devin Novak Consult Reason/Comments: Client Technical Support Associate Consult: post cardiac surgery Do you want consulting provider notified?: Yes 05/17/19 07:33 Consult Physician Routine Consulting Provider: Gael Mustafa Consult Reason/Comments: s/p cabg, pt had nephrectomy in the past Do you want consulting provider notified?: Yes 05/17/19 12:37 Consult Physician Routine Consulting Provider: Kenyon Finley Consult Reason/Comments: inpatient rehab Do you want consulting provider notified?: Yes Primary care physician: [facility] Course: FINAL DIAGNOSIS: 1. Diffuse triple-vessel coronary artery disease with totally occluded right coronary artery, preserved left ventricular function 2. History of CAD with stent placement in 2013 3. Stroke in 2017 with left vertebral artery stenosis 4. Single kidney, chronic kidney disease stage III 5. Tobacco abuse with recent cessation and preoperative FEV1 103% of predicted 6. Obstructive sleep apnea without CPAP use status post UP3 surgery 7. Type 2 diabetes with preoperative hemoglobin A1c 6.2% 8. History of hypertension 9. History of hyperlipidemia 10. May-Thurner syndrome status post recent stenting of bilateral iliac veins 11. Remote history of pneumonia 12. Transitional cell carcinoma 19 years ago 13. Syncope in November 2018 14. Charcot foot, ambulation with a cane 15. BPH 16. Family history of premature coronary artery disease 17. Postoperative acute blood loss anemia 18. Postoperative thrombocytopenia 19. Postoperative hypotension 20. Postoperative acute on chronic kidney disease PRINCIPAL PROCEDURE: 1. Quadruple coronary artery bypass grafting using the left internal mammary artery to the left anterior descending artery, left radial artery from the aorta to the first obtuse marginal artery, reverse saphenous vein graft from the aorta to the second obtuse marginal artery, reverse saphenous vein graft from the aorta to the totally occluded right coronary artery system 2. Endoscopic harvesting of the left radial artery 3. Endoscopic harvesting of the left greater saphenous vein from the groin to the mid lower level 4. Intraoperative transesophageal echocardiogram and epi-aortic scanning 5. Intraoperative graft flow measurements using the [employer] system HISTORY OF PRESENT ILLNESS: This is a 63-year-old gentleman who follows on an outpatient basis with Dr Armenta. He had been diagnosed with bilateral iliac vein compression and underwent stenting by Dr. Novak in December 2018. At that point he also underwent cardiac catheterization demonstrating triple vessel disease with totally occluded collateralized right coronary artery and proximal disease in his left anterior descending artery as well as both obtuse marginal arteries. His ejection fraction seemed to be overall mildly impaired estimated at 50-55% with no evidence of significant valvular disease. The patient was referred to Dr. Jade from cardiothoracic surgery. He was recommended to undergo elective coronary artery bypass surgery. The usual perioperative course was discussed in detail with the patient and his family, all risks and benefits were explained, all questions were answered, and consent was obtained to proceed with surgery. The patient was encouraged to quit smoking, and was allowed 3 months of Plavix post iliac vein stenting prior to stopping for surgery, therefore surgery was scheduled in April 2019. HOSPITAL COURSE: The patient was brought to the hospital on 05/16/2019, taken to the preoperative area, prepared in the usual fashion, and subsequently taken to the operating room where Dr. Elyssa Jade performed a 4 vessel coronary artery bypass graft surgery. Upon completion of surgery the patient was transferred to the cardiovascular intensive care unit where he was recovered, monitored hemodynamically and where he progressed to cardiac rehabilitation phase 1. He was extubated, all lines, tubes, and supportive drips were discontinued when appropriate and he was transferred to the 3 S. cardiac stepdown unit for further rehabilitation needs. His oxygen was titrated down, he continued to work with physical, occupational therapy and cardiac rehab services, he was tolerating an oral diet, his pain was controlled and he was ready to be discharged to home with home health care on postoperative day #5. He has received written and verbal instructions regarding his medications, activity restrictions, signs and symptoms requiring physician notification and his follow-up appointments. COMPLICATIONS: The patient experienced postoperative acute blood loss anemia, thrombocytopenia, hypertension, and acute kidney injury, none of which required treatment. DISCHARGE INSTRUCTIONS: 1. No driving for 4 weeks, or until physician gives their ok. 2. The patient should sleep in their own bed, no medical bed needed. 3. Stairs are not an issue. If the bedroom is upstairs, it is advised that the patient go up at night and down in the morning for the first week. Go slowly, using handrail and take 1 step at a time. 4. AL hose are to be worn for 30 days or until physician discontinues. 5. Heart hugger is to be worn 100% of the time until physician discontinues.(except when showering) 6. No lifting, pushing, or pulling more than 10 pounds for 12 weeks. The physician will advise of any restriction changes. 7. The patient is expected to continue the prescribed walking program. 8. Continue pain control per as needed orders. 9. Continue with incentive spirometry and splinting/heart hugger until otherwise directed by the physician. 10. Must shower daily using liquid antibacterial soap and a separate white washcloth for each individual incision. 11. Routine sternal incision care. No powders, lotions, ointments on incisions. No dressings are necessary on incisions unless they are draining. Dermabond tape is to remain on sternal incision until surgeon follow-up. 12. Please call surgeon/SWISS TYPE SCREW MACHINE OPERATOR for temp greater than 101 F or purulent drainage from incisions. 13. All prescriptions given by surgeon for 30 days. Refills need to be filled through heavy equipment operator/primary care physician. 14. A Red armband has been placed on the patient. It should be worn for 30 days post surgery and will be removed by the cardiac surgeons. If an ER visit is necessary, please make sure the number on the Red armband is called. 15. Please keep a record of your blood sugar results and check them AC and HS, take the recorded results on your follow-up visit with your primary care physician. If your blood sugar is less than 70 or greater than 200 please contact your primary care physician. Continue Jardiance, Actos and Glipizide as per primary care service recommendations. May restart Trulicity when ok with Dr Armenta. HOME HEALTH SERVICES TO PROVIDE: RN SKILLED HOME CARE SERVICES FOR POST-OP SURGICAL PATIENTS WITH THE FOLLOWING: Coronary Artery Bypass Surgery (CABG), Mitral Valve Replacement/Repair ( MVR), Aortic Valve Replacement/Repair (AVR) RN TO CONTINUE EDUCATION FROM ``ROAD TO A HEALTH HEART PATIENT EDUCATION MANUAL (GIVEN TO PATIENT IN THE HOSPITAL) MEDICATION RECONCILIATION WITH EDUCATION NEEDED ON FIRST HOME VISIT EMPHASIZE IMPORTANCE OF WEARING BREAST SUPPORT/HEART HUGGER ENCOURAGE USE OF INCENTIVE SPIROMETER 10 X EVERY HOUR WHILE AWAKE ENCOURAGE UTILIZATION OF LOWER EXTREMITY COMPRESSION STOCKINGS/AL HOSE and ELEVATE LEGS ABOVE LEVEL OF HEART WHILE AT REST. ENCOURAGE AMBULATION 3-5x/day INCREASING TOLERATES, WHILE AVOIDING EXTREMES IN TEMPERATURE FREQUENCY: RN TO OPEN THE PATIENT WITHIN 24 HOURS OF DISCHARGE FROM THE HOSPITAL WITH TELEHEALTH INSTALLED AT [facility], RN TO VISIT 2-3 X A WEEK FOR 4 WEEKS ESTABLISHED BY PATIENT NEEDS. LABORATORY: CBC, CMP TO BE DRAWN ON THE THIRD DAY HOME, (RAN STAT) FAX RESULTS TO [phone]. TELEHEALTH PARAMETERS: WEIGHT: NOTIFY MD OF WEIGHT GAIN OF 2 LBS IN 24 HOURS OR 5 LBS IN ONE WEEK HR: NOTIFY MD OF HR <55 BPM OR HR>100 BPM BP: NOTIFY MD IF BP <90/55 OR BP>140/100 O2 SAT: NOTIFY MD IF PO2<93% ON ROOM AIR SEND TELEHEALTH REPORT TO DATA CENTER ARCHITECT AND CARDIOVASCULAR SURGEON THE FIRST WEEK OF CARE AND THEN BI-WEEKLY. PLEASE ADDITIONALLY COMMUNICATE ANY ABNORMALS AND NEW FINDINGS TO THE SURGEONS OFFICE. For any questions or concerns please call production machine shop supervisor Jessica @ or Don @ Please do not discontinue the Norvasc without checking with Dr. Jade, as it is in place for radial artery spasm prophylaxis. Plan - Discharge Summary Discharge Rx Participant: No New Discharge Prescriptions: New Aspirin 325 mg PO DAILY tab Atorvastatin [Lipitor] 40 mg PO DAILY #30 tab Metoprolol Tartrate [Lopressor] 25 mg PO BID #60 tab amLODIPine [Norvasc] 2.5 mg PO DAILY #30 tab Pantoprazole [Protonix] 40 mg PO AC-BRKFST #30 tablet. Acetaminophen Tab [Tylenol] 1,000 mg PO Q6HR PRN tab PRN Reason: Fever And/ Or Pain Continue Clopidogrel Bisulfate [Clopidogrel] 75 mg PO DAILY Gabapentin [Neurontin] 600 mg PO BID PRN PRN Reason: Pain glipiZIDE [Glucotrol] 10 mg PO BID PRN PRN Reason: cbg over 150 Fluticasone Nasal [place] [Flonase Nasal [place]] 1 - 2 spr EA NOSTRIL DAILY Tamsulosin HCl [Flomax] 0.4 mg PO BID Pioglitazone HCl 15 mg PO DAILY traMADol HCL [Ultram] 100 mg PO BID PRN 3 Days #12 tab PRN Reason: Pain Discontinued Dulaglutide [Trulicity] 1.5 mg SQ MO Furosemide [Lasix] 20 mg PO DAILY Atorvastatin [Lipitor] 20 mg PO DAILY Potassium Chloride ER [K-Dur 10] 10 meq PO BID Lisinopril [Zestril] 2.5 mg PO BID Metoprolol Tartrate [Lopressor] 25 mg PO DAILY Isosorbide Mononitrate ER [Imdur] 30 mg PO DAILY Mupirocin [Mupirocin 2%] 1 applic NASAL BID #1 tube No Action Empagliflozin [Jardiance] 25 mg PO DAILY Discharge Medication List Clopidogrel Bisulfate [Clopidogrel] 75 mg PO DAILY 02/04/14 [History] Gabapentin [Neurontin] 600 mg PO BID PRN 10/10/16 [History] Empagliflozin [Jardiance] 25 mg PO DAILY 12/03/18 [History] Fluticasone Nasal [place] [Flonase Nasal [place]] 1 - 2 spr EA NOSTRIL DAILY 04/29/19 [History] Pioglitazone HCl 15 mg PO DAILY 04/29/19 [History] Tamsulosin HCl [Flomax] 0.4 mg PO BID 04/29/19 [History] glipiZIDE [Glucotrol] 10 mg PO BID PRN 04/29/19 [History] Acetaminophen Tab [Tylenol] 1,000 mg PO Q6HR PRN tab 05/21/19 [Rx] Aspirin 325 mg PO DAILY tab 05/21/19 [Rx] Atorvastatin [Lipitor] 40 mg PO DAILY #30 tab 05/21/19 [Rx] Metoprolol Tartrate [Lopressor] 25 mg PO BID #60 tab 05/21/19 [Rx] Pantoprazole [Protonix] 40 mg PO NOELLE-ANNETTE #30 ivette. 05/21/19 [Rx] amLODIPine [Norvasc] 2.5 mg PO DAILY #30 tab 05/21/19 [Rx] traMADol HCL [Ultram] 100 mg PO BID PRN 3 Days #12 tab 05/21/19 [Rx] Follow up Appointment(s)/Referral(s): Jessica Valencia, KENNEY [Nurse Practitioner] - 05/26/19 12:00 pm Devin Novak MD [STAFF PHYSICIAN] - 06/07/19 2:00 pm Elyssa Jade MD [STAFF PHYSICIAN] - 06/24/19 10:00 am Shekhar Armenta III, MD [Primary Care Provider] - 05/27/19 11:00 am Carol Sauceda NPC [Nurse Practitioner] - 06/06/19 2:45 pm [facility], [NON-STAFF] - 05/22/19 Gael Mustafa DO [STAFF PHYSICIAN] - 06/03/19 1:20 pm Ambulatory/Diagnostic Orders: Complete Blood Count w/diff [LAB.AMB] Time Frame: 05/24/19, Facility: [facility], Location: Laboratory [facility] Comprehensive Metabolic Panel [LAB.AMB] Time Frame: 05/24/19, Facility: [facility], Location: Laboratory [facility] Activity/Diet/Wound Care/Special Instructions: DISCHARGE INSTRUCTIONS: 1. No driving for 4 weeks, or until physician gives their ok. 2. The patient should sleep in their own bed, no medical bed needed. 3. Stairs are not an issue. If the bedroom is upstairs, it is advised that the patient go up at night and down in the morning for the first week. Go slowly, using handrail and take 1 step at a time. 4. AL hose are to be worn for 30 days or until physician discontinues. 5. Heart hugger is to be worn 100% of the time until physician discontinues.(except when showering) 6. No lifting, pushing, or pulling more than 10 pounds for 12 weeks. The physician will advise of any restriction changes. 7. The patient is expected to continue the prescribed walking program. 8. Continue pain control per as needed orders. 9. Continue with incentive spirometry and splinting/heart hugger until otherwise directed by the physician. 10. Must shower daily using liquid antibacterial soap and a separate white washcloth for each individual incision. 11. Routine sternal incision care. No powders, lotions, ointments on incisions. No dressings are necessary on incisions unless they are draining. Dermabond tape is to remain on sternal incision until surgeon follow-up. 12. Please call surgeon/SWISS TYPE SCREW MACHINE OPERATOR for temp greater than 101 F or purulent drainage from incisions. 13. All prescriptions given by surgeon for 30 days. Refills need to be filled through heavy equipment operator/primary care physician. 14. A Red armband has been placed on the patient. It should be worn for 30 days post surgery and will be removed by the cardiac surgeons. If an ER visit is necessary, please make sure the number on the Red armband is called. 15. Please keep a record of your blood sugar results and take the recorded results on your follow-up visit with your primary care physician. If your blood sugar is less than 70 or greater than 200 please contact your primary care physician. HOME HEALTH SERVICES TO PROVIDE: RN SKILLED HOME CARE SERVICES FOR POST-OP SURGICAL PATIENTS WITH THE FOLLOWING: Coronary Artery Bypass Surgery (CABG), Mitral Valve Replacement/Repair ( MVR), Aortic Valve Replacement/Repair (AVR) RN TO CONTINUE EDUCATION FROM ``ROAD TO A HEALTH HEART PATIENT EDUCATION MANUAL (GIVEN TO PATIENT IN THE HOSPITAL) MEDICATION RECONCILIATION WITH EDUCATION NEEDED ON FIRST HOME VISIT EMPHASIZE IMPORTANCE OF WEARING BREAST SUPPORT/HEART HUGGER ENCOURAGE USE OF INCENTIVE SPIROMETER 10 X EVERY HOUR WHILE AWAKE ENCOURAGE UTILIZATION OF LOWER EXTREMITY COMPRESSION STOCKINGS/AL HOSE and ELEVATE LEGS ABOVE LEVEL OF HEART WHILE AT REST. ENCOURAGE AMBULATION 3-5x/day INCREASING TOLERATES, WHILE AVOIDING EXTREMES IN TEMPERATURE FREQUENCY: RN TO OPEN THE PATIENT WITHIN 24 HOURS OF DISCHARGE FROM THE HOSPITAL WITH TELEHEALTH INSTALLED AT [facility], RN TO VISIT 2-3 X A WEEK FOR 4 WEEKS ESTABLISHED BY PATIENT NEEDS. LABORATORY: CBC, CMP TO BE DRAWN ON THE THIRD DAY HOME, (RAN STAT) FAX RESULTS TO [phone]. TELEHEALTH PARAMETERS: WEIGHT: NOTIFY MD OF WEIGHT GAIN OF 2 LBS IN 24 HOURS OR 5 LBS IN ONE WEEK HR: NOTIFY MD OF HR <55 BPM OR HR>100 BPM BP: NOTIFY MD IF BP <90/55 OR BP>140/100 O2 SAT: NOTIFY MD IF PO2<93% ON ROOM AIR SEND TELEHEALTH REPORT TO DATA CENTER ARCHITECT AND CARDIOVASCULAR SURGEON THE FIRST WEEK OF CARE AND THEN BI-WEEKLY. PLEASE ADDITIONALLY COMMUNICATE ANY ABNORMALS AND NEW FINDINGS TO THE SURGEONS OFFICE. For any questions or concerns please call production machine shop supervisor Jessica @ or Don @ Discharge Disposition: HOME WITH HOME HEALTH SERVICES
== END 2019-05-21 13:20 | disposition home health service (06) | DRG 235 ==
LOC: 2ORMAIN 05-16 05:33 → 2SICU 05-16 17:11 → 3SCARD 05-20 13:29
PROVIDERS: ADMIT Surgery; ATTEND Surgery
PROC: 02100Z9 Bypass Coronary Artery, One Artery from Left Internal Mammary, Open Approach (ICD-10-PCS; principal; 2019-05-16 08:00)
PROC: 02100AW Bypass Coronary Artery, One Artery from Aorta with Autologous Arterial Tissue, Open Approach (ICD-10-PCS; principal; 2019-05-16 08:00)
PROC: 03BC4ZZ Excision of Left Radial Artery, Percutaneous Endoscopic Approach (ICD-10-PCS; principal; 2019-05-16 08:00)
PROC: 021109W Bypass Coronary Artery, Two Arteries from Aorta with Autologous Venous Tissue, Open Approach (ICD-10-PCS; principal; 2019-05-16 08:00)
PROC: 5A1221Z Performance of Cardiac Output, Continuous (ICD-10-PCS; principal; 2019-05-16 08:00)
PROC: 4A033BC Measurement of Arterial Pressure, Coronary, Percutaneous Approach (ICD-10-PCS; principal; 2019-05-16 08:00)
PROC: B24BZZ4 Ultrasonography of Heart with Aorta, Transesophageal (ICD-10-PCS; principal; 2019-05-16 08:00)
PROC: 06BQ4ZZ Excision of Left Saphenous Vein, Percutaneous Endoscopic Approach (ICD-10-PCS; principal; 2019-05-16 08:00)
PROC: 5A1223Z Performance of Cardiac Pacing, Continuous (ICD-10-PCS; principal; 2019-05-16 08:00)
DX: I25.119 Atherosclerotic heart disease of native coronary artery with unspecified angina pectoris (principal); N17.0 Acute kidney failure with tubular necrosis; D62 Acute posthemorrhagic anemia; I87.1 Compression of vein; J90 Pleural effusion, not elsewhere classified; J98.11 Atelectasis; E11.610 Type 2 diabetes mellitus with diabetic neuropathic arthropathy; I65.02 Occlusion and stenosis of left vertebral artery; I25.82 Chronic total occlusion of coronary artery; D69.59 Other secondary thrombocytopenia; E11.22 Type 2 diabetes mellitus with diabetic chronic kidney disease; E11.42 Type 2 diabetes mellitus with diabetic polyneuropathy; E11.51 Type 2 diabetes mellitus with diabetic peripheral angiopathy without gangrene; I13.10 Hypertensive heart and chronic kidney disease without heart failure, with stage 1 through stage 4 chronic kidney disease, or unspecified chronic kidney disease; N18.3 Chronic kidney disease, stage 3 (moderate); I95.9 Hypotension, unspecified; E78.5 Hyperlipidemia, unspecified; E87.5 Hyperkalemia; G47.33 Obstructive sleep apnea (adult) (pediatric); I25.2 Old myocardial infarction; N40.0 Benign prostatic hyperplasia without lower urinary tract symptoms; K57.90 Diverticulosis of intestine, part unspecified, without perforation or abscess without bleeding; N28.1 Cyst of kidney, acquired; R19.7 Diarrhea, unspecified; E78.00 Pure hypercholesterolemia, unspecified; E66.9 Obesity, unspecified; Z68.31 Body mass index [BMI] 31.0-31.9, adult; F17.210 Nicotine dependence, cigarettes, uncomplicated; Z79.02 Long term (current) use of antithrombotics/antiplatelets; Z79.84 Long term (current) use of oral hypoglycemic drugs; Z79.899 Other long term (current) drug therapy; Z85.528 Personal history of other malignant neoplasm of kidney; Z86.73 Personal history of transient ischemic attack (TIA), and cerebral infarction without residual deficits; Z87.01 Personal history of pneumonia (recurrent); Z88.5 Allergy status to narcotic agent; Z88.0 Allergy status to penicillin; Z90.5 Acquired absence of kidney; Z95.5 Presence of coronary angioplasty implant and graft; Z85.72 Personal history of non-Hodgkin lymphomas; Z98.42 Cataract extraction status, left eye; Z98.41 Cataract extraction status, right eye; Z96.1 Presence of intraocular lens; Z82.49 Family history of ischemic heart disease and other diseases of the circulatory system; Z82.5 Family history of asthma and other chronic lower respiratory diseases; Z83.3 Family history of diabetes mellitus; Z80.9 Family history of malignant neoplasm, unspecified
CPT/HCPCS: 71045; 71046; 80048; 80053; 82330; 82805; 83735; 85025; 85027; 85520; 85610; 85730; 86850; 86891; 86900; 86901; 86920; 87324; 94002; 94640; 94760

== ENCOUNTER → 2019-05-10 | Outpatient (CLI) | payer MEDICARE, BC ==
[2019-05-10 09:22] LABS: HCT 45.4 % (39.0-53.0); HGB 15.5 gm/dL (13.0-17.5); MCH 30.4 pg (25.0-35.0); MCV 89.5 fL (80.0-100.0); Mean Platelet Volume 7.8; Platelet Count 190 k/uL (150-450); Poikilocytosis Slight; RBC 5.08 m/uL (4.30-5.90); RDW 14.3 % (11.5-15.5); WBC 6.8 k/uL (3.8-10.6)
[2019-05-10 09:33] LABS: Albumin 4.1 g/dL (3.5-5.0); Calcium 9.1 mg/dL (8.4-10.2); Magnesium 2.1 mg/dL (1.6-2.3); Potassium 4.6 mmol/L (3.5-5.1); Total Bilirubin 0.9 mg/dL (0.2-1.3); Total Protein 7.2 g/dL (6.3-8.2)
[2019-05-10 09:45] LABS: Partial Thromboplastin Time 24.3 sec (22.0-30.0); Prothrombin Time 10.6 sec (9.0-12.0)
--- NOTE | 2019-05-10 10:07 | P.PN ---
Progress Note - Text Progress Note Date: 05/10/19 5 meter walk test completed: #1 4.33 sec #2 4.46 sec #3 4.50 sec STS risk score will be calculated once all testing completed and discussed with patient
[2019-05-10 10:50] LABS: Appearance,Urine Clear (Clear); Bilirubin,Urine Negative (Negative); Blood,Urine Negative (Negative); Color,Urine Yellow; Glucose,Urine (UA) 4+ (Negative); Ketones,Urine Negative (Negative); Leukocyte Esterase,Urine Negative (Negative); Nitrite,Urine Negative (Negative); PH, Urine 5.5 (5.0-8.0); Protein,Urine Trace (Negative); Specific Gravity,Urine 1.026 (1.001-1.035); Urobilinogen,Urine <2.0 mg/dL (<2.0)
--- NOTE | 2019-05-10 12:26 | XR ---
EXAMINATION TYPE: XR chest 2V DATE OF EXAM: 05/10/2019 COMPARISON: Prior chest x-ray 12/03/2018 HISTORY: Preop TECHNIQUE: Frontal and lateral views of the chest are obtained. FINDINGS: There is no focal air space opacity, pleural effusion, or pneumothorax seen. The cardiac silhouette size is within normal limits. The osseous structures are intact. The aorta is dense and ectatic. There are dense coronary artery calcifications. IMPRESSION: No acute cardiopulmonary process. Thoracic aortic aneurysm. Coronary artery disease.
[2019-05-10 15:48] LABS: Hepatitis A Antibody IgM Non-Reactive (Non-Reactive); Hepatitis B Core IgM Non-Reactive (Non-Reactive); Hepatitis B Surface Antigen Non-Reactive (Non-Reactive); Hepatitis C IgG Antibody Non-Reactive (Non-Reactive)
[2019-05-10 16:26] LABS: Hemoglobin A1C 6.2 % (4.0-6.0)
--- NOTE | 2019-05-18 10:59 | P.ARTDOP ---
Arterial Doppler LOWER EXTREMITY ARTERIAL DOPPLER: DATE OF SERVICE: 05/10/2019 Reason for study: Preop CABG. Doppler waveforms: Multiphasic throughout bilaterally. Pulse volume recording: []. Pressure gradients: None. Ankle-brachial indices: Greater than 1 bilaterally. Toe pressures: 127 on the right, 127 on the left Impression: Normal study.
--- NOTE | 2019-05-18 11:01 | P.VSCSTY ---
Greater Saphenous Vein Mapping This is bilateral lower extremity greater saphenous vein mapping. Date of service: 05/10/2019 Vein quality and ultrasound appearance: We see no endoluminal thrombus or abnormal wall changes. Vein size groin right : 5.5 x 4.9 groin left: 7.7 x 8.3 High thigh right: 5.2 x 3.2 high thigh left: 8.4 x 7.9 Mid thigh right: 4.8 x 4.0 mid thigh left: 5.7 x 4.2 Above-knee right: 3.9 x 3.2 above-knee left: 5.5 x 4.3 Below knee right: 4.1 x 4.1 below-knee left: 5.9 x 4.4 Mid calf right: 5.1 x 4.0 mid calf left: 4.7 x 3.1 Ankle right: 5.2 x 3.7 ankle left: 4.4 x 3.1 Impression: Usable bilateral greater saphenous vein. In size. There are couple of areas on the left that are very large for use as conduit..
== END | disposition home or self-care (01) ==
LOC: LABWHC1 08:41
PROVIDERS: ATTEND Surgery
DX: Z01.818 Encounter for other preprocedural examination (principal); I25.10 Atherosclerotic heart disease of native coronary artery without angina pectoris; E11.9 Type 2 diabetes mellitus without complications; Z79.899 Other long term (current) drug therapy; Z79.01 Long term (current) use of anticoagulants
CPT/HCPCS: 71046; 80053; 80061; 80074; 81003; 83036; 83735; 84443; 85027; 85610; 85730; 86850; 86900; 86901; 86920; 87070; 87086; 93005; 93922; 93970

== ENCOUNTER → 2019-10-13 | Outpatient (CLI) | payer MEDICARE, BC ==
--- NOTE | 2019-10-13 10:46 | CT ---
EXAMINATION TYPE: CT abdomen pelvis w con DATE OF EXAM: 10/13/2019 COMPARISON: 01/15/2017 HISTORY: 64-year-old male C6 1, follow up prostate cancer TECHNIQUE: Contiguous axial scanning of the abdomen and pelvis following administration of 100 ml Iso stephanie 300 IV contrast. Delayed images through the kidneys and coronal/sagittal reconstructions perform ed. CT DLP: 1379 mGycm Automated exposure control for dose reduction was used. FINDINGS: Heart normal size without pericardial effusion. Lung bases clear without pleural effusion. Small hiatal hernia. Indeterminate vague 1.1 cm hypodensity right liver lobe, axial image 13 is nonspecific. Portal venous system is patent. No biliary ductal dilatation. Gallbladder, adrenal glands, and atrophic pancreas show no gross abnormality. There is a 2.6 cm diver ticulum of the second portion of the duodenum projecting into the pancreatic head region. Status post left nephrectomy with surgical clips in the nephrectomy bed. No abnormal soft tissue here . 5.7 cm cyst centrally within the right kidney, increased in size from 5.1 cm, previously. 7 mm nonobs tructive right renal calculus. Spleen enlarged at 14.7 cm with a superior splenule. This seems to be prior epigastric midline abdominal wall mesh repair. A prominent 7 mm left mid abdominal mesenteric lymph node, axial image 39 and coronal image 43 was pr esent previously and is nonspecific. Otherwise, no mesenteric or retroperitoneal lymphadenopathy. Moderate atherosclerotic calcifications within the infrarenal abdominal aorta. Bilateral iliac vein stents. No dilated small bowel, free fluid, or free air. Mild overall stool burden. Generalized colonic diver ticulosis. No pericolonic inflammatory change. Prostate gland is enlarged measuring 5.3 cm wide, not significantly changed. Left-sided pelvic phlebo lith. Punctate central prostatic calcification unchanged. Surgical clips along the left pelvic sidewa ll. No abnormal fluid collection in the pelvis. Some prominent but not enlarged external iliac chain lymph nodes measuring up to 8 mm are unchanged from 01/15/2017. No new or progressive pelvic lymphaden opathy seen. Moderate left and small right hydroceles. Bones: Stable bone island right hemisacrum. Facet arthropathy lower lumbar spine. No osseous destruct verna process. IMPRESSION: 1. PROSTATOMEGALY OF 5.3 CM WIDE, NOT SIGNIFICANTLY CHANGED. Status post lymph node dissection along the left pelvic sidewall. 2. Subtle 1.1 cm hypodense lesion right liver lobe is nonspecific. Three-month follow-up CT or MRI re commended to reassess. 3. No new or progressive lymphadenopathy to suggest metastatic disease. 4. Status post left nephrectomy. A 5.7 cm benign right renal cyst slightly increased from 5.1 cm, pre viously. 7 mm nonobstructive right renal calculus. 5. Generalized colonic diverticulosis without acute diverticulitis. Mild splenomegaly at 14.7 cm. Sma ll hiatal hernia.
--- NOTE | 2019-10-13 12:05 | XR ---
EXAMINATION TYPE: XR chest 2V DATE OF EXAM: 10/13/2019 COMPARISON: Prior chest x-ray 05/21/2019 HISTORY: Prostate cancer, C 59 TECHNIQUE: Frontal and lateral views of the chest are obtained. FINDINGS: Patient is post median sternotomy and rotated. There are coronary artery calcifications pre sent. There is no focal air space opacity, pleural effusion, or pneumothorax seen. The cardiac silho uette size is stable and enlarged. The aorta is dense. The osseous structures are intact. IMPRESSION: No acute cardiopulmonary process. Stable cardiomegaly. Postop changes. Coronary artery d isease.
--- NOTE | 2019-10-13 13:19 | NM ---
EXAMINATION TYPE: NM bone scan whole body DATE OF EXAM: 10/13/2019 COMPARISON: correlation with CT 10/13/2019 HISTORY: C 59, prostate cancer and Right foot pain for 1 year Delayed whole-body scanning was performed following the injection of 22.4 mCi Tc 99m MDP. Images acq uired 3 hours post injection. FINDINGS: There is no left renal uptake consistent with patient's left nephrectomy. Soft tissue uptake is other menard normal. Abnormal uptake within the right greater than left is likely degenerative. Uptake within the right hand, shoulders, right knee is likely degenerative. Urine contamination noted of the scrot al region. No suspicious abnormal uptake to suggest metastatic disease. IMPRESSION: Degenerative changes. Postop changes. No suspicious uptake to suggest metastatic disease is evident.
== END | disposition home or self-care (01) ==
LOC: RADCTMAIN 07:22
PROVIDERS: ATTEND Urology
DX: N40.0 Benign prostatic hyperplasia without lower urinary tract symptoms (principal); K76.9 Liver disease, unspecified; N28.1 Cyst of kidney, acquired; N20.0 Calculus of kidney; K57.30 Diverticulosis of large intestine without perforation or abscess without bleeding; K44.9 Diaphragmatic hernia without obstruction or gangrene; R16.1 Splenomegaly, not elsewhere classified; I25.10 Atherosclerotic heart disease of native coronary artery without angina pectoris; I51.7 Cardiomegaly; Z98.890 Other specified postprocedural states; Z90.5 Acquired absence of kidney; Z88.1 Allergy status to other antibiotic agents; Z88.5 Allergy status to narcotic agent; Z88.8 Allergy status to other drugs, medicaments and biological substances
CPT/HCPCS: 82565; 84520; 71046; 74177; 78306; A9503; Q9967

== ENCOUNTER → 2019-10-24 | Outpatient (CLI) | payer MEDICARE, BC ==
--- NOTE | 2019-10-24 10:51 | CT ---
EXAMINATION TYPE: CT foot RT wo con DATE OF EXAM: 10/24/2019 COMPARISON: Bone scan 10/13/2019, no plain film supplied for correlation HISTORY: Charcot joint. CT DLP: 225.9 mGycm Automated exposure control for dose reduction was used. Helical acquisition through the right lower e xtremity. 3 Dimensional Reconstructions performed. FINDINGS: There is arthropathy change present with subchondral geode formation at the level of the distal navic ular, proximal metatarsals with fragmented ossific densities present at the level of the midfoot. The re is disorganization and dislocation at the mid foot associated with the bone destruction. Soft tiss ue swelling is noted. Extensive soft tissue swelling noted at the level of the cuboid bone. Incidenta l plantar calcaneal spur. Calcifications in the level of insertion of the Achilles tendon are noted i ncidentally. IMPRESSION: FINDINGS ARE COMPATIBLE WITH PATIENT'S HISTORY OF CHARCOT FOOT
== END | disposition home or self-care (01) ==
LOC: RADCTMAIN 10:03
PROVIDERS: ATTEND Orthopaedic Surgery
DX: M14.679 Charcot's joint, unspecified ankle and foot (principal)

== ENCOUNTER → 2019-12-14 | Outpatient (CLI) | payer MEDICARE, BC ==
[2019-12-14 13:05] LABS: Basophils # (A) 0.1 k/uL (0-0.2); Basophils % (A) 2 %; Eosinophils # (A) 0.2 k/uL (0-0.7); Eosinophils % (A) 3 %; HCT 48.8 % (39.0-53.0); HGB 15.9 gm/dL (13.0-17.5); Lymphocytes # (A) 1.2 k/uL (1.0-4.8); Lymphocytes % (A) 17 %; MCH 27.9 pg (25.0-35.0); MCHC 32.7 g/dL (31.0-37.0); MCV 85.4 fL (80.0-100.0); Mean Platelet Volume 7.8; Monocytes # (A) 0.4 k/uL (0-1.0); Monocytes % (A) 6 %; Neutrophils # (A) 5.3 k/uL (1.3-7.7); Neutrophils % (A) 71 %; Platelet Count 220 k/uL (150-450); RBC 5.71 m/uL (4.30-5.90); RDW 15.9 % (11.5-15.5); WBC 7.5 k/uL (3.8-10.6)
[2019-12-14 13:11] LABS: Calcium 9.6 mg/dL (8.4-10.2); Potassium 4.1 mmol/L (3.5-5.1)
== END | disposition home or self-care (01) ==
LOC: LABPAT 12:04
PROVIDERS: ATTEND Urology
DX: Z01.818 Encounter for other preprocedural examination (principal); E11.9 Type 2 diabetes mellitus without complications; C61 Malignant neoplasm of prostate
CPT/HCPCS: 36415; 80048; 85025

== ENCOUNTER 2019-12-21 07:02 | Day surgery (SDC) | payer MEDICARE, BC ==
[2019-12-14 15:22] VITALS: BMI 26.6
--- NOTE | 2019-12-21 06:46 | P.GSHP ---
History of Present Illness H&P Date: 12/21/19 Chief Complaint: Prostate cancer The patient is a 64-year-old white male with a PSA level of 4.7. KOFFI revealed right-sided firmness. Prostate ultrasound revealed a prostate volume of 33 mL. 5 of 12 biopsies showed evidence of prostate cancer. All 5 biopsies were right-sided, [place] 7/8. He is to be treated with IMRT and androgen deprivation therapy. He has received firmly down since 11/02/2019. He has elected to undergo implant to minimize the rectal toxicity associated with IMRT. - Genitourinary (Female) Genitourinary: Reports nocturia, Reports urinary frequency Past Medical History Past Medical History: Coronary Artery Disease (CAD), Cancer, Chest Pain / Angina, CVA/TIA, Diabetes Mellitus, GI Bleed, Hyperlipidemia, Hypertension, Myocardial Infarction (VT), Prostate Disorder, Renal Disease, Sleep Apnea/CPAP/BIPAP Additional Past Medical History / Comment(s): CATRACHITO 2013 , C-DIFF 2012., HX DIVERTICULOSIS, NEUROPATHY IN HANDS & FEET., LEFT KIDNEY CANCER WITH NEPHRECTOMY URETER & PART OF BLADDER & LYMPH NODES REMOVED., HAS CYST RIGHT KIDNEY, STAGE 3 KIDNEY DISEASE., HX OF SLEEP APNEA (SURGERY)., NON-HODGKINS LYMPHOMA -LAST PET SCAN NEGATIVE., STATES NO RESIDUAL EFFECT FROM HX CVA/TIA., 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prostate cancer Last Myocardial Infarction Date:: 2012 History of Any Multi-Drug Resistant Organisms: None Reported Past Surgical History: Bowel Resection, Coronary Bypass/CABG, Heart Catheterization, Heart Catheterization With Stent, Hernia Repair, Tonsillectomy Additional Past Surgical History / Comment(s): 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 , CIRCUMCISION cataracts., PIECE OF METAL REMOVED FROM ABD (WAR WOUND) - DEVELOPED SCAR TISSUE & PART OF LARGE INTESTINE REMOVED., ABD HERNIA REPAIR. SX FOR SLEEP APNEA. COLONOSCOPY/POLYPECTOMY., SUDHEER ILIAC VEIN STENTING.,, STATES TOTAL OF 4 CARDIAC STENTS, HEART CATH 12/2018, quadruple bypass 05/16/19 Past Anesthesia/Blood Transfusion Reactions: No Reported Reaction, Family His tory of Problems w/ Anesthesia Additional Past Anesthesia/Blood Transfusion Reaction / Comment(s): mother had hallucinations and problems with anesthesia Date of Last Stent Placement:: 01/2014 Smoking Status: Former smoker - Past Family History Mother Additional Family Medical History / Comment(s): from complications from broken hip. Father Family Medical History: Cancer Sister(s) Family Medical History: Diabetes Mellitus, Deep Vein Thrombosis (DVT) Additional Family Medical History / Comment(s): Medications and Allergies Home Medications Medication Instructions Recorded Confirmed Type Clopidogrel Bisulfate [Clopidogrel] 75 mg PO DAILY 02/04/14 12/14/19 History Gabapentin [Neurontin] 600 mg PO BID 10/10/16 12/14/19 History Empagliflozin [Jardiance] 25 mg PO DAILY 12/03/18 12/14/19 History Fluticasone Nasal [place] [Flonase 1 - 2 spr EA NOSTRIL DAILY 04/29/19 12/14/19 History Nasal [place]] Pioglitazone HCl 15 mg PO DAILY 04/29/19 12/14/19 History Tamsulosin HCl [Flomax] 0.4 mg PO BID 04/29/19 12/14/19 History glipiZIDE [Glucotrol] 10 mg PO BID PRN 04/29/19 12/14/19 History Acetaminophen Tab [Tylenol] 1,000 mg PO Q6HR PRN tab 05/21/19 12/14/19 Rx Aspirin 325 mg PO DAILY tab 05/21/19 12/14/19 Rx Atorvastatin [Lipitor] 40 mg PO DAILY #30 tab 05/21/19 12/14/19 Rx Dulaglutide [Trulicity] 0.75 mg SQ MO 12/14/19 12/14/19 History Furosemide [Lasix] 20 mg PO DAILY 12/14/19 12/14/19 History Potassium Chloride 10 meq PO DAILY 12/14/19 12/14/19 History amLODIPine BESYLATE [Norvasc] 2.5 mg PO DAILY 12/14/19 12/14/19 History traMADol HCL [Ultram] 50 mg PO BID PRN 12/14/19 12/14/19 History traZODone HCL 50 mg PO HS 12/14/19 12/14/19 History Allergies Allergy/AdvReac Type Severity Reaction Status Date / Time Penicillins Allergy Unknown Verified 12/14/19 14:57 Childhood codeine AdvReac Unknown Nausea & Verified 12/14/19 14:57 Vomiting metformin AdvReac Nausea & Verified 12/14/19 14:57 Vomiting Surgical - Exam - General well developed, well nourished, no distress - Respiratory normal respiratory effort - Cardiovascular Rhythm: regular - Rectum Rectum: normal sphincter tone, no masses, other (Prostate mildly enlarged with right-sided firmness) Assessment and Plan (1) Malignant neoplasm of prostate Status: Acute Code(s): C61 - MALIGNANT NEOPLASM OF PROSTATE SNOMED Code(s): 363154231 Plan: The SpaceOar implant has been reviewed in detail with the patient. He understands that the rationale for this is to create separation between the prostate and rectum, thus reducing the risk of radiation proctitis. The material begins to breakdown 12-13 weeks following implant, and is reabsorbed by the body. Risks include anesthesia, bleeding, infection, and perineal discomfort. He understands that if the rectal wall is perforated the procedure will need to be aborted.
[~2019-12-21 07:02] MED LIST changes: -ALPRAZolam 0.25 MG TAB PO PRN; -ALPRAZolam 0.5 MG TAB PO PRN; -ASPIRIN 325 MG TAB PO STA; -ATORVASTATIN 80 MG TAB PO STA; +DEXAMETHASONE SOD PHOSPHATE 10 MG/ML 1 ML VIAL IV ONE; +HYDROmorphone 0.5 MG/0.5 ML SYRINGE IVP PRN; +LACTATED RINGERS 1,000 ML IV SCH; +LIDOCAINE 1% (10MG/ML) FOR IV START INTRADERMA PRN; -NITROGLYCERIN SL TABS 0.4 MG TAB SUBLINGUAL PRN; +ONDANSETRON 4 MG/2 ML VIAL IVP ONE; -SODIUM CHLORIDE 0.9% 1,000 ML in EMPTY BAG 1 BAG IV ONE
[2019-12-21 07:28] VITALS: RESP 16
[2019-12-21 07:34] LABS: Glucose,Whole Blood 220 mg/dL (75-99)
[2019-12-21] MEDS ORDERED: ONDANSETRON 4 MG/2 ML VIAL ONE (07:34)
[2019-12-21] MEDS ORDERED: PROPOFOL 10 MG/ML 20 ML VIAL IV ONE (08:33)
[2019-12-21] MEDS ORDERED: MIDAZOLAM 2 MG/2 ML VIAL ONE (08:33)
[2019-12-21] MEDS ORDERED: fentaNYL (PF) 50 MCG/ML 2 ML AMP ONE (08:33)
[2019-12-21] MEDS ORDERED: LIDOCAINE 2% INJ 20 MG/ML SQ ONE (08:50)
--- NOTE | 2019-12-21 09:18 | P.OP ---
Date of Procedure: 12/21/19 Preoperative Diagnosis: Prostate Cancer Postoperative Diagnosis: Same Procedure(s) Performed: SpaceOar Implant Anesthesia: MAC Surgeon: Raymond Vasquez Estimated Blood Loss (ml): 10 IV fluids (ml): 500 Pathology: none sent Condition: stable Disposition: PACU Indications for Procedure: The patient is a 64-year-old white male with a PSA level of 4.7. KOFFI revealed right-sided firmness. Prostate ultrasound revealed a prostate volume of 33 mL. 5 of 12 biopsies showed evidence of prostate cancer. All 5 biopsies were right- sided, [place] 7/8. He is to be treated with IMRT and androgen deprivation therapy. He has received firmly down since 11/02/2019. He has elected to undergo implant to minimize the rectal toxicity associated with IMRT. Operative Findings: Excellent space created between prostate and rectum. Description of Procedure: The patient was taken to the operating room and placed in the dorsolithotomy position, with his legs supported in Benjamín stirrups. The external genitalia was prepped and draped sterilely. The Bruel and Kjaer transrectal ultrasound probe was placed intrarectally. The prostate was imaged. The probe was then placed within the stabilizing stand. A spinal needle was advanced under ultrasonic guidance to the level of the urogenital diaphragm, and lidocaine was used to infiltrate the tissues as the needle was withdrawn. Next, the SpaceOAR needle was passed through the midline of the perineum, 1-2 cm anterior to the anal opening. The needle was slowly advanced under ultrasonic guidance until the needle tip was located within the fat plane between the prostate and rectum, at the level of the mid prostate gland. The needle was confirmed to be midline on the axial imaging. A small amount of normal saline was injected for hydrodissection. Next, the SpaceOAR components were mixed and loaded into the Y connector per protocol. The Y connector was then connected to the needle, and the components were injected slowly over a course of approximately 12 seconds. A total of 10 ml was injected. Significant distance was created between the prostate and rectum, as desired. It should be noted that at no point was there any concern of rectal perforation. The needle was withdrawn, as well as the transrectal ultrasound probe, and the procedure was terminated. The patient tolerated the procedure well and was taken to the recovery room in stable condition.
[2019-12-21 09:27] VITALS: TEMP 98.1
[2019-12-21 10:15] LABS: Glucose,Whole Blood 188 mg/dL (75-99)
[2019-12-21 10:35] VITALS: BP 121/77; PULSE 67
== END 2019-12-21 10:53 | disposition home or self-care (01) ==
LOC: OR 07:02
PROVIDERS: ATTEND Urology
DX: C61 Malignant neoplasm of prostate (principal); I12.9 Hypertensive chronic kidney disease with stage 1 through stage 4 chronic kidney disease, or unspecified chronic kidney disease; E11.22 Type 2 diabetes mellitus with diabetic chronic kidney disease; N18.3 Chronic kidney disease, stage 3 (moderate); I25.10 Atherosclerotic heart disease of native coronary artery without angina pectoris; I87.1 Compression of vein; G47.33 Obstructive sleep apnea (adult) (pediatric); E11.42 Type 2 diabetes mellitus with diabetic polyneuropathy; F17.210 Nicotine dependence, cigarettes, uncomplicated; Z79.02 Long term (current) use of antithrombotics/antiplatelets; Z88.0 Allergy status to penicillin; Z88.5 Allergy status to narcotic agent; Z88.8 Allergy status to other drugs, medicaments and biological substances; Z79.82 Long term (current) use of aspirin; Z79.84 Long term (current) use of oral hypoglycemic drugs; Z79.891 Long term (current) use of opiate analgesic; Z79.899 Other long term (current) drug therapy; Z86.73 Personal history of transient ischemic attack (TIA), and cerebral infarction without residual deficits; Z95.1 Presence of aortocoronary bypass graft; Z95.5 Presence of coronary angioplasty implant and graft; C85.90 Non-Hodgkin lymphoma, unspecified, unspecified site; I25.2 Old myocardial infarction; E78.5 Hyperlipidemia, unspecified; Z85.528 Personal history of other malignant neoplasm of kidney; Z90.5 Acquired absence of kidney; Z90.49 Acquired absence of other specified parts of digestive tract; Z98.890 Other specified postprocedural states; Z87.19 Personal history of other diseases of the digestive system; Z86.19 Personal history of other infectious and parasitic diseases; Z80.9 Family history of malignant neoplasm, unspecified; Z82.49 Family history of ischemic heart disease and other diseases of the circulatory system; Z83.3 Family history of diabetes mellitus
CPT/HCPCS: 55874; J2001; J2250; J1100; J2405; J0690; J3010; J2704

== ENCOUNTER → 2020-06-13 | Outpatient (CLI) | payer MEDICARE, BC ==
--- NOTE | 2020-06-14 07:34 | CT ---
EXAMINATION TYPE: CT abdomen pelvis wo/w con DATE OF EXAM: 06/13/2020 COMPARISON: 10/13/2019 HISTORY: F/U prostate CA CT DLP: 2340.9 mGycm CONTRAST: CT scan of the abdomen and pelvis is performed with Oral Contrast and without and with IV Contrast, p atient injected with 80 mL of Isovue 300. FINDINGS: LUNG BASES-: No visible nodule. No infiltrate. LIVER/GB: No calcified gallstones. No space occupying hepatic lesion. Biliary tree is of normal ca liber. There is hepatic steatosis. Previously noted subtle hypodense lesion right hepatic lesion is n ot redemonstrated at this time. PANCREAS: No inflammation. No distinct mass. SPLEEN: No splenic enlargement. No lesion seen. ADRENALS: No nodule. No thickening. KIDNEYS/BLADDER: Left-sided nephrectomy change. No hydronephrosis. Stable large right renal cyst. S table nonobstructing right renal calculus. Urinary bladder grossly unremarkable. BOWEL: Normal appendix. Normal bowel caliber. No inflammation. Colonic diverticulosis. GENITAL ORGANS: The prostate gland is stable in appearance. Prostate calcifications. Periprostatic fa t planes are intact. LYMPH NODES: No greater than 1cm abdominal or pelvic lymph nodes are appreciated. AORTA: No significant abnormality. OSSEOUS STRUCTURES: No significant abnormality is seen. OTHER: Internal iliac vein stents. IMPRESSION: 1. No evidence for metastatic disease at this time. 2. Stable right simple renal cyst and nonobstructing nephrolithiasis. 3. Status post left-sided nephrectomy. 4. Fatty liver.
== END | disposition home or self-care (01) ==
LOC: RADCTMAIN 15:12
PROVIDERS: ATTEND Radiology Radiation Oncology
DX: N28.1 Cyst of kidney, acquired (principal); N20.0 Calculus of kidney; K76.0 Fatty (change of) liver, not elsewhere classified; C61 Malignant neoplasm of prostate; F17.210 Nicotine dependence, cigarettes, uncomplicated; Z90.5 Acquired absence of kidney; Z79.818 Long term (current) use of other agents affecting estrogen receptors and estrogen levels
CPT/HCPCS: 82565; 84520; 74178; 36415; Q9967

== ENCOUNTER → 2021-05-24 | Outpatient (CLI) | payer MEDICARE, BC | END | disposition home or self-care (01) | LOC: LABWHC1 13:10 | PROVIDERS: ATTEND Urology | DX: C61 Malignant neoplasm of prostate (principal) | CPT/HCPCS: 36415; 84153 ==

== ENCOUNTER → 2022-02-11 | Outpatient (CLI) | payer MEDICARE, BC | END | disposition home or self-care (01) | LOC: LABWHC1 08:27 | PROVIDERS: ATTEND Urology | DX: C61 Malignant neoplasm of prostate (principal) | CPT/HCPCS: 36415; 84153 ==

== ENCOUNTER → 2022-02-24 | Outpatient (CLI) | payer MEDICARE, BC ==
--- NOTE | 2022-02-25 09:03 | CT ---
EXAMINATION TYPE: CT abdomen pelvis w con CT DLP: 1514.5 mGycm, Automated exposure control for dose reduction was used. DATE OF EXAM: 02/24/2022 5:12 PM COMPARISON: CT abdomen pelvis most recent from 06/13/2020. CLINICAL INDICATION:Male, 66 years old with history of C61 MALIGNANT NEOPLASM OF PROSTATE; h/o prosta te CA TECHNIQUE: Axial CT of the abdomen and pelvis. Sagittal and coronal reformats were created on a [employer] workstation. Contrast used:100 mL of Isovue 300 with IV Contrast, Oral contrast used: with Oral Contrast FINDINGS: LOWER CHEST: Right middle lobe 4 mm pulmonary nodule. Series 4 image 3. The heart is mildly enlarged for size. There is coronary artery atherosclerosis. Gynecomastia changes bilaterally. ABDOMEN LIVER: Diffusely hypoattenuating parenchyma. GALLBLADDER AND BILE DUCTS: Cholelithiasis. PANCREAS: Unremarkable. SPLEEN: Mildly enlarged measuring up to 15.2 cm. Small splenule is present. ADRENAL GLANDS: Unremarkable. KIDNEYS AND URETERS: The left kidney is surgically absent. Right renal cysts are present No evidence of right hydronephrosis. The right nonobstructing calculus measuring 9 mm. PELVIS BLADDER: Unremarkable REPRODUCTIVE: Unremarkable. ABDOMEN & PELVIS STOMACH AND BOWEL: No evidence of bowel obstruction. Third portion duodenal diverticulum. Scattered c lonic diverticula are present. PERITONEUM: No evidence of pneumoperitoneum or free fluid. VASCULATURE: No evidence of aortic aneurysm. Bilateral common iliac vein stent grafts are present. At herosclerosis of the arterial vasculature. MUSCULOSKELETAL: No acute osseous abnormalities LYMPH NODES: Increase in size of lymphadenopathy within the retroperitoneum some which is near the le ft renal surgical bed. Example includes a left periaortic lymph node measuring 13 mm in short axis pr eviously 5 mm and a lymph node at the diaphragmatic hiatus next to the aorta measuring 12 mm in short axis previously 6 mm. Additional retroperitoneal lymph nodes are also increased in size along the ao rta. SOFT TISSUE/ABDOMINAL WALL: Right fat containing inguinal hernia. Postsurgical changes of ventral wal l. IMPRESSION: 1. Increase in size of retroperitoneal and aortic diaphragmatic hiatus lymph nodes concerning for met astatic disease. Unclear whether this is renal or prostatic in origin if patient has history of both malignancies. 2. Right middle lobe 5 mm pulmonary nodule not definitively in the [id number] on prior CT examinat ions. 3. New Splenomegaly. 4. Hepatic steatosis.
== END | disposition home or self-care (01) ==
LOC: RADCTMAIN 14:52
PROVIDERS: ATTEND Urology
DX: C61 Malignant neoplasm of prostate (principal); K76.0 Fatty (change of) liver, not elsewhere classified; R16.1 Splenomegaly, not elsewhere classified; R91.1 Solitary pulmonary nodule
CPT/HCPCS: 82565; 84520; 74177; 36415; Q9967

== ENCOUNTER → 2022-03-10 | Outpatient (CLI) | payer MEDICARE, BC ==
--- NOTE | 2022-03-10 13:30 | XR ---
EXAM TYPE: LUMBAR SPINE X RAY SERIES COMPARISON: NONE HISTORY: Pain TECHNIQUE: 4 views are submitted. FINDINGS: Alignment is anatomic. The pedicles are intact. The transverse processes are intact. There is diff use osteopenia with multilevel hypertrophic and degenerative changes. Facet arthropathy L4-5 and L5-S 1 likely resultant foraminal encroachment. Grade 1 anterolisthesis of L4 and L5. Surgical clips and vascular calcifications in the metallic stents are incidentally noted. IMPRESSION: 1. Multilevel degenerative disc disease and facet arthropathy.
--- NOTE | 2022-03-10 13:33 | XR ---
EXAMINATION TYPE: XR thoracic spine complete DATE OF EXAM: 03/10/2022 COMPARISON: NONE HISTORY: Middle and low back pain TECHNIQUE: 3 views submitted FINDINGS: Alignment is anatomic. There is no compression deformities. Vertebral body height and disc interspa karel are maintained. Diffuse osteopenia with multilevel degenerative disc disease. Coronary stents are seen as postoperative change involving mediastinum. IMPRESSION: 1. Diffuse osteopenia with multilevel mild degenerative disc disease.
== END | disposition home or self-care (01) ==
LOC: RADXRMAIN 12:31
PROVIDERS: ATTEND Urology
DX: C61 Malignant neoplasm of prostate (principal); M51.36 Other intervertebral disc degeneration, lumbar region; R97.20 Elevated prostate specific antigen [PSA]
CPT/HCPCS: 72072; 72110

== ENCOUNTER → 2022-04-08 | Outpatient (CLI) | payer MEDICARE, BC ==
--- NOTE | 2022-04-08 14:33 | NM ---
EXAMINATION TYPE: NM bone scan whole body DATE OF EXAM: 04/08/2022 COMPARISON: 10/13/2019 HISTORY: Prostate cancer Delayed whole-body scanning was performed following the injection of 22.8 mCi Tc 99m MDP. Images acq uired 3.5 hours post injection. FINDINGS: Abnormal uptake involving the sternum and within the posterior rib cage bilaterally and anterior righ t rib cage is nonspecific. Abnormal uptake involving the mid and lower thoracic spine likely degenera tive. Intense abnormal uptake involving the upper lumbar spine demonstrates no corresponding x-ray ab normality. There is abnormal uptake involving the right iliac crest and left sacrum and left inferior pubic jania s. Abnormal uptake involving the knees greater on the right and bilateral feet greater on the left likel y posterior to it. Abnormal uptake involving the right hand likely post arthritic. Abnormal uptake in volving the right maxilla likely related to periodontal disease. IMPRESSION: 1. New areas of abnormal uptake involving the sternum and rib cage are nonspecific recommend x-ray co rrelation to assess for metastases. 2. No abnormal uptake involving the lumbar spine demonstrate no corresponding x-ray abnormality relat verna to 03/10/2022. 3. Abnormal uptake involving the left sacrum, left inferior pubic ramus, and right iliac bone demonst rates no definite abnormality on the CT scan of the pelvis 02/24/2022. However, these findings are ne w and appear somewhat suspicious for metastases. Correlate clinically.
== END | disposition home or self-care (01) ==
LOC: RADNMMAIN 09:52
PROVIDERS: ATTEND Urology
DX: C61 Malignant neoplasm of prostate (principal); R93.89 Abnormal findings on diagnostic imaging of other specified body structures
CPT/HCPCS: 78306; A9503

== ENCOUNTER → 2022-05-10 | Outpatient (CLI) | payer MEDICARE, BC ==
--- NOTE | 2022-05-11 07:10 | XR ---
EXAMINATION TYPE: XR hand complete LT DATE OF EXAM: 05/10/2022 2:15 PM INDICATION: Patient age:Male; 66 years old; Reason for study: M79.642, M79.604; COMPARISON: None TECHNIQUE: Frontal, lateral and oblique views of the left hand were obtained. FINDINGS: Cortical irregularity at the base of mary fifth metacarpal. No displaced fractures are iden tified. Scattered multifocal joint space narrowing and osteophyte formation soft tissues grossly unre markable. IMPRESSION: 1. cortical irregularity at the base of the fifth metacarpal which could represent nondisplaced frac ture correlate with point tenderness. No displaced fractures visualized. 2. Multifocal osteoarthrosis
--- NOTE | 2022-05-11 07:14 | XR ---
EXAMINATION TYPE: XR tibia fibula RT DATE OF EXAM: 05/10/2022 2:15 PM INDICATION: Patient age:Male; 66 years old; Reason for study: M79.642, M79.604; COMPARISON: None TECHNIQUE: The right tibia/fibula was examined in AP and lateral projections. FINDINGS: Linear lucency through the proximal tibia seen on lateral view only. No other fractures taniya ntified soft tissues demonstrate pitting edema. Atherosclerosis of the arterial vasculature. Calcanea l plantar spurring is present. IMPRESSION: Lucency through the proximal tibia seen on one lateral view only correlate with point tenderness for nondisplaced proximal tibial fracture. Consider dedicated knee radiographs for further evaluation.
== END | disposition home or self-care (01) ==
LOC: RADXRMAIN 13:47
PROVIDERS: ATTEND Family Medicine
DX: S82.154A Nondisplaced fracture of right tibial tuberosity, initial encounter for closed fracture (principal); M19.042 Primary osteoarthritis, left hand; M79.642 Pain in left hand; M79.604 Pain in right leg

== ENCOUNTER → 2022-10-01 | Outpatient (CLI) | payer MEDICARE, BC ==
[2022-10-01 08:57] LABS: African American GFR (CKD) 83 (>60 ml/min/1.73 sqM); Blood Urea Nitrogen 19 mg/dL (9-20); Non-African American GFR(CKD) 72 (>60 ml/min/1.73 sqM)
--- NOTE | 2022-10-01 11:57 | CT ---
EXAMINATION TYPE: CT ChestAbdPelvis w con DATE OF EXAM: 10/01/2022 COMPARISON: CT abdomen and pelvis February 24, 2022 HISTORY: Prostate cancer, diabetes, Hx of renal cancer CT DLP: 1753.70 mGycm. Automated Exposure Control for Dose Reduction was Utilized. CONTRAST: CT scan of the thorax, abdomen and pelvis is performed with oral and with IV Contrast, patient inject ed with 100 ml mL of Isovue 300. FINDINGS: LUNGS: There is 3 to 4 mm peripheral right mid lung nodule axial image 34 which is stable. No new or enlarging greater than 5 mm pulmonary nodules. There is no pleural effusion or pneumothorax seen. The tracheobronchial tree is patent. MEDIASTINUM: Post-CABG changes with sternal wires and mediastinal clips is present. There are no grea ter than 1 cm hilar or mediastinal lymph nodes. No cardiomegaly or pericardial effusion is seen. OTHER: Bilateral flame-shaped gynecomastia redemonstrated.. LIVER/GB: There is 7 mm dependent gallstone in the gallbladder axial image 61. PANCREAS: [id number] generalized fat replaced atrophy redemonstrated. SPLEEN: There is 2.5 cm splenule posterior to the spleen axial image 57 redemonstrated. Splenomegaly at 14.4 cm long axis coronal image 63 redemonstrated. ADRENALS: No significant abnormality is seen. KIDNEYS: Left kidney surgically absent. Large simple 6.3 cm thin-walled cyst in the right kidney mid to lower pole level medially is present. BOWEL: Diverticula throughout the distal transverse colon extending into the left and sigmoid colon i s redemonstrated. No CT evidence for acute diverticulitis. No suspicious small or large bowel dilatat ion. GENITAL ORGANS: No gross abnormality seen. LYMPH NODES: Surgical clips in the left retroperitoneum redemonstrated. Marked interval improvement i n the abnormal adenopathy along the left aspect of the descending aorta. No greater than 1 cm adenopa thy seen on current study. No abnormal greater than 1 cm adenopathy just above the diaphragm adjacent to the descending aorta. OSSEOUS STRUCTURES: Moderate to severe narrowing of both hip joints.. OTHER: Persistent common iliac vein stent grafts bilaterally extending into external iliac veins. Wilber gical clips left pelvis redemonstrated. Moderate to severe peripheral plaque of the aorta extends into branch vessels. IMPRESSION: Positive treatment response to abnormal retrocrural and retroperitoneal adenopathy in the abdomen and upper pelvis. No new adenopathy is seen. Stable 3-4 mm peripheral right mid to lower raoul g nodule.
--- NOTE | 2022-10-01 14:30 | NM ---
EXAMINATION TYPE: NM bone scan whole body DATE OF EXAM: 10/01/2022 COMPARISON: 04/08/2022, CT scan 10/01/2022. CLINICAL INDICATION: Male, 66 years old with history of C61; Delayed whole-body scanning was performed following the injection of 23.1 mCi Tc 99m MDP. Images acq uired 5 hours post injection. FINDINGS: Abnormal uptake involving the sternum and within the posterior rib cage bilaterally and anterior righ t rib cage is stable. Findings are concordant with sclerotic lesions and CT findings compatible with metastases. Abnormal uptake involving the thoracic and lumbar spine. There is abnormal uptake involving the left sacrum and left inferior pubic ramus. Abnormal uptake involving the knees greater on the right and bilateral feet greater on the left likel y posttraumatic or post arthritic. Abnormal uptake involving the right hand likely post arthritic. Nonspecific uptake proximal right tib ia. Abnormal uptake involving the right maxilla likely related to periodontal disease. IMPRESSION: Stable bone scan findings suggestive of metastases. Areas of abnormal uptake are concorda nt with CT findings of sclerotic bony metastasis typical of prostate cancer. 1. Areas of abnormal uptake involving the bilateral ribs cage correspond to sclerosis seen involving the rib cage by CT scan. Findings are concordant suggestive of metastases. 2. Areas of abnormal uptake involving the vertebral column appear to correspond to sclerotic lesions involving the CT scan. Suggestive of metastases. Areas of abnormal uptake involving the left sacrum and pelvis corresponding areas of sclerosis by CT scan. Above findings are felt to be suggestive of sclerotic metastases. Findings similar to prior exa m. 3. New nonspecific uptake involving the proximal diaphysis of the right tibia. Recommend x-ray correl ation
== END | disposition home or self-care (01) ==
LOC: RADCTMAIN 08:12
PROVIDERS: ATTEND Internal Medicine Hematology & Oncology
DX: C79.51 Secondary malignant neoplasm of bone (principal); C61 Malignant neoplasm of prostate; E11.9 Type 2 diabetes mellitus without complications; R91.1 Solitary pulmonary nodule; E78.5 Hyperlipidemia, unspecified; Z71.3 Dietary counseling and surveillance; Z85.528 Personal history of other malignant neoplasm of kidney
CPT/HCPCS: 82565; 84520; 71260; 74177; 78306; Q9967

== ENCOUNTER 2022-11-04 13:43 | Inpatient (IN) | payer MEDICARE, BC ==
[2022-11-04 14:05] LABS: Glucose,Whole Blood 387 mg/dL (70-110)
[2022-11-04] MEDS ORDERED: SODIUM CHLORIDE 0.9% IV STA (14:16)
[2022-11-04] MEDS ORDERED: ACETAMINOPHEN TAB 500 MG TAB PO STA (14:18)
--- NOTE | 2022-11-04 14:21 | ED ---
General Adult HPI - General Source: patient, EMS Mode of arrival: EMS Limitations: no limitations <Elijah Newman - Last Filed: 11/04/22 14:33> <Devin Rodriges - Last Filed: 11/04/22 16:54> - General Chief complaint: Weakness Stated complaint: weakness Time Seen by Provider: 11/04/22 13:52 - History of Present Illness Initial comments: Dictation was produced using [employer] dictation software. please excuse any grammatical, word or spelling errors. Chief Complaint: 67-year-old male presents emergency Department with fever and weakness and malaise History of Present Illness: 67-year-old male. Past medical history of prostate cancer, CAD, diabetes. Patient states that he's been feeling weak. Apparently him and his tested positive for COVID-19 a week ago. Patient has a mild cough. Is not productive. He also complains of urinary symptoms. Denies any abdominal pain. No neck stiffness. No headache. Denies any diarrhea. The ROS documented in this emergency department record has been reviewed and confirmed by me. Those systems with pertinent positive or negative responses mondragon ve been documented in the HPI. All other systems are other negative and/or noncontributory. (Elijah Newman) - Related Data Home Medications Medication Instructions Recorded Confirmed Clopidogrel Bisulfate [Clopidogrel] 75 mg PO DAILY 02/04/14 12/21/19 Gabapentin [Neurontin] 600 mg PO BID 10/10/16 12/21/19 Empagliflozin [Jardiance] 25 mg PO DAILY 12/03/18 12/21/19 Fluticasone Nasal [place] [Flonase 1 - 2 spr EA NOSTRIL DAILY 04/29/19 12/21/19 Nasal [place]] Pioglitazone HCl 15 mg PO DAILY 04/29/19 12/21/19 Tamsulosin HCl [Flomax] 0.4 mg PO BID 04/29/19 12/21/19 glipiZIDE [Glucotrol] 10 mg PO BID PRN 04/29/19 12/21/19 Dulaglutide [Trulicity] 0.75 mg SQ MO 12/14/19 12/21/19 Furosemide [Lasix] 20 mg PO DAILY 12/14/19 12/21/19 Potassium Chloride [Klor-Con M10] 10 meq PO DAILY 12/14/19 12/21/19 amLODIPine BESYLATE [Norvasc] 2.5 mg PO DAILY 12/14/19 12/21/19 traMADol HCL [Ultram] 50 mg PO BID PRN 12/14/19 12/21/19 traZODone HCL 50 mg PO HS 12/14/19 12/21/19 Previous Rx's Medication Instructions Recorded Acetaminophen Tab [Tylenol] 1,000 mg PO Q6HR PRN tab 05/21/19 Aspirin 325 mg PO DAILY tab 05/21/19 Atorvastatin [Lipitor] 40 mg PO DAILY #30 tab 05/21/19 Allergies Allergy/AdvReac Type Severity Reaction Status Date / Time Penicillins Allergy Unknown Verified 12/21/19 07:28 Childhood codeine AdvReac Unknown Nausea & Verified 12/21/19 07:28 Vomiting metformin AdvReac Nausea & Verified 12/21/19 07:28 Vomiting Review of Systems ROS Other: All systems not noted in ROS Statement are negative. <Elijah Newman - Last Filed: 11/04/22 14:33> ROS Other: All systems not noted in ROS Statement are negative. <Devin Rodriges - Last Filed: 11/04/22 16:54> ROS Statement: Those systems with pertinent positive or pertinent negative responses have been documented in the HPI. Past Medical History Past Medical History: Coronary Artery Disease (CAD), Cancer, Chest Pain / Angina, CVA/TIA, Diabetes Mellitus, GI Bleed, Hyperlipidemia, Hypertension, Myocardial Infarction (ID), Prostate Disorder, Renal Disease, Sleep Apnea/CPAP/BIPAP Additional Past Medical History / Comment(s): CATRACHITO 2014 , C-DIFF 2012., HX DIVERTICULOSIS, NEUROPATHY IN HANDS & FEET., LEFT KIDNEY CANCER WITH NEPHRECTOMY URETER & PART OF BLADDER & LYMPH NODES REMOVED., HAS CYST RIGHT KIDNEY, STAGE 3 KIDNEY DISEASE., HX OF SLEEP APNEA (SURGERY)., NON-HODGKINS LYMPHOMA -LAST PET SCAN NEGATIVE., STATES NO RESIDUAL EFFECT FROM HX CVA/TIA., 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 , CIRCUMCISION cataracts., PIECE OF METAL REMOVED FROM ABD (WAR WOUND) - DEVELOPED SCAR TISSUE & PART OF LARGE INTESTINE REMOVED., ABD HERNIA REPAIR. SX FOR SLEEP APNEA. COLONOSCOPY/ POLYPECTOMY., SUDHEER ILIAC VEIN STENTING.,, STATES TOTAL OF 4 CARDIAC STENTS, HEART CATH 12/2018. Past Anesthesia/Blood Transfusion Reactions: No Reported Reaction Date of Last Stent Placement:: 01/2014 Past Psychological History: No Psychological Hx Reported Smoking Status: Current every day smoker Past Alcohol Use History: Occasional Past Drug Use History: None Reported - Past Family History Mother Additional Family Medical History / Comment(s): from complications from broken hip. Father Family Medical History: Cancer Sister(s) Family Medical History: Diabetes Mellitus, Deep Vein Thrombosis (DVT) <Elijah Newman - Last Filed: 11/04/22 14:33> General Exam Limitations: no limitations <Elijah Newman - Last Filed: 11/04/22 14:33> - General Exam Comments Initial Comments: PHYSICAL EXAM: General Impression: Alert and oriented x3, not in acute distress HEENT: Normocephalic atraumatic, extra-ocular movements intact, pupils equal and reactive to light bilaterally, mucous membranes moist. Cardiovascular: Heart regular rate and rhythm Chest: Able to complete full sentences, no retractions, no tachypnea Abdomen: abdomen soft, non-tender, non-distended, no organomegaly Musculoskeletal: Pulses present and equal in all extremities, no peripheral edema Motor: no focal deficits noted Neurological: CN II-XII grossly intact, no focal motor or sensory deficits noted, negative Brudzinski's, negative Kernig's, negative limits Skin: Intact with no visualized rashes Psych: Normal affect and mood (Elijah Newman) Course <Devin Rodriges - Last Filed: 11/04/22 16:54> Vital Signs 11/04/22 11/04/22 11/04/22 13:47 15:02 15:40 Temperature 102.2 F H 99.8 F H Pulse Rate 80 91 Respiratory 20 18 18 Rate Blood Pressure 118/63 95/51 O2 Sat by Pulse 96 97 Oximetry - Reevaluation(s) Reevaluation #1: 11/04/22 16:53 There is concern for sepsis diagnosed by myself at 1650. Blood culture and lactic acid ordered. IV antibiotics have been ordered. (Devin Rodriges) Procedures - Sepsis Sepsis Focused Exam #1 Time Sepsis Criteria Met: : Sepsis Focused Exam Date: 11/04/22 Sepsis Focused Exam Time: : Sepsis Focused Exam Complete: Yes Vital Signs & RN Notes Reviewed: Yes Capillary Refill: < 2 Seconds: Fingers, Toes Peripheral Pulses: Normal: Radial (R), Radial (L), Posterior Tibialis (R), Posterior Tibialis (L), Dorsalis Pedis (R), Dorsalis Pedis (L) Skin Color: Normal for Patient Respiratory Exam: normal lung sounds Cardiovascular Exam: regular rate <Elijah Newman - Last Filed: 11/04/22 14:33> Medical Decision Making <Elijah Newman - Last Filed: 11/04/22 14:33> - Lab Data Result diagrams: 11/04/22 14:20 11/04/22 14:20 <Devin Rodriges - Last Filed: 11/04/22 16:54> - Medical Decision Making Was pt. sent in by a medical professional or institution ([facility], [employer], urgent care, hospital, or shelter...) When possible be specific @ -[No] Did you speak to anyone other than the patient for history (EMS, parent, family, police, friend...)? What history was obtained from this source @ -[No] Did you review nursing and triage notes (agree or disagree)? Why? @ -[I reviewed and agree with nursing and triage notes] Were old charts reviewed (outside hosp., previous admission, EMS record, old EKG, old radiological studies, urgent care reports/EKG's, shelter records)? Report findings @ -[No old charts were reviewed] Differential Diagnosis (chest pain, altered mental status, abdominal pain women, abdominal pain men, vaginal bleeding, musculoskeletal, weakness, fever, dyspnea, syncope, headache, dizziness, GI bleed, back pain, seizure, CVA, palpatations, mental health)? @ -Differential Fever: Pneumonia, viral URI, endocarditis, myocarditis, pericarditis, otitis, sinusitis, peritonsillar Abscess, retropharyngeal Abscess, epiglottitis, peritonitis, appendicitis, Yoana cystitis, diverticulitis, hepatitis, colitis, UTI, PID, TOA, pyelonephritis, prostatitis, epididymitis, meningitis, encephalitis, pulmonary embolism, CVA, thyroid storm, pancreatitis, adrenal crisis, cavernous sinus thrombosis, this is not meant to be an all-inclusive list. EKG interpreted by me (3pts min.). @ -My EKG interpretation: Ventricular rate 81, sinus rhythm,. We'll 221, QRS 117, QTc 413. No MD prolongation, no QTC prolongation, no ST or T-wave changes noted. EKG compared to 05/17/2019 showing no changes. Overall, this EKG is unremarkable Clinical presentation consistent with sepsis. Patient given 30 mL per KG bolus based on ideal body weight for a 5'9" male Patient is signed out to Dr. Rodriges for follow-up of pending labs. (Elijah Newman) X-rays interpreted by me (1pt min.). @ -Chest x-ray shows postoperative changes. No acute process. CT interpreted by me (1pt min.). @ -[None done] U/S interpreted by me (1pt. min.). @ -[None done] What testing was considered but not performed or refused? (CT, X-rays, U/S, labs)? Why? @ -[None] What meds were considered but not given or refused? Why? @ -[None] Did you discuss the management of the patient with other professionals (professionals i.e. DrSheila, PA, [employer], lab, RT, psych nurse, social work job titles, corporation lawyer, teacher, chief digital officer, ed case manager)? Give summary @ -Case was discussed with practitioner Loco Nance, who will admit for Dr. Montes, covering Dr. Armenta. Case also discussed with Dr. Marquis regarding concern for elevated troponin. Was smoking cessation discussed for >3mins.? @ -[No] Was critical care preformed (if so, how long)? @ -33 minus critical care time Were there social determinants of health that impacted care today? How? (Tiffanie elessness, low income, unemployed, alcoholism, drug addiction, transportation, low edu. Level, literacy, decrease access to med. care, fpc, rehab)? @ -[No] Was there de-escalation of care discussed even if they declined (Discuss DNR or withdrawal of care, Hospice)? DNR status @ -[No] What co-morbidities impacted this encounter? (DM, HTN, Smoking, COPD, CAD, Cancer, CVA, ARF, Chemo, Hep., AIDS, mental health diagnosis, sleep apnea, morbid obesity)? @ -[None] Was patient admitted / discharged? Hospital course, mention meds given and route, prescriptions, significant lab abnormalities, going to OR and other pertinent info. @ -Patient reevaluated twice. On second reevaluation patient does have large right foot wound, on the plantar surface, approximate size of the half dollar. There is positive odor. Stage III. Patient states he does have metastatic pro state cancer and currently is under treatment with that. Undiagnosed new problem with uncertain prognosis? @ -[No] Drug Therapy requiring intensive monitoring for toxicity (Heparin, Nitro, Insulin, Cardizem)? @ -[No] Were any procedures done? @ -[No] Diagnosis/symptom? @ -Sepsis, foot ulcer, elevated troponin Acute, or Chronic, or Acute on Chronic? @ -Acute, acute, acute Uncomplicated (without systemic symptoms) or Complicated (systemic symptoms)? @ -[default] Side effects of treatment? @ -[No] Exacerbation, Progression, or Severe Exacerbation? @ -[No] Poses a threat to life or bodily function? How? (Chest pain, USA, ID, pneumonia, PE, COPD, DKA, ARF, appy, cholecystitis, CVA, Diverticulitis, Homicidal, Suicidal, threat to staff... and all critical care pts) @ -[No] (Devin Rodriges) - Lab Data Lab Results 11/04/22 11/04/22 11/04/22 Range/Units 14:04 14:20 14:20 WBC 9.5 (3.8-10.6) k/uL RBC 3.18 L (4.30-5.90) m/uL Hgb 9.9 L (13.0-17.5) gm/dL Hct 29.0 L (39.0-53.0) % MCV 91.2 (80.0-100.0) fL MCH 31.0 (25.0-35.0) pg MCHC 34.0 (31.0-37.0) g/dL RDW 13.9 (11.5-15.5) % Plt Count 170 (150-450) k/uL MPV 8.4 Neutrophils % 92 % Lymphocytes % 2 % Monocytes % 4 % Eosinophils % 0 % Basophils % 0 % Neutrophils # 8.7 H (1.3-7.7) k/uL Lymphocytes # 0.2 L (1.0-4.8) k/uL Monocytes # 0.4 (0-1.0) k/uL Eosinophils # 0.0 (0-0.7) k/uL Basophils # 0.0 (0-0.2) k/uL Poikilocytosis Slight PT (9.0-12.0) sec INR (<1.2) APTT (22.0-30.0) sec Sodium 128 L (137-145) mmol/L Potassium 4.4 (3.5-5.1) mmol/L Chloride 99 (98-107) mmol/L Carbon Dioxide 20 L (22-30) mmol/L Anion Gap 9 mmol/L BUN 17 (9-20) mg/dL Creatinine 1.05 (0.66-1.25) mg/dL Est GFR (CKD-EPI)AfAm 84 (>60 ml/min/1.73 sqM) Est GFR (CKD-EPI)NonAf 73 (>60 ml/min/1.73 sqM) Glucose 351 H (74-99) mg/dL POC Glucose (mg/dL) 387 H (70-110) mg/dL POC Glu Make Up Artist ID Vinnie Bocanegra Plasma Lactic Acid Koyd (0.7-2.0) mmol/L Calcium 7.8 L (8.4-10.2) mg/dL Magnesium 1.8 (1.6-2.3) mg/dL Total Bilirubin 1.1 (0.2-1.3) mg/dL AST 34 (17-59) U/L ALT 20 (4-49) U/L Alkaline Phosphatase 82 (38-126) U/L Troponin I (0.000-0.034) ng/mL Total Protein 6.7 (6.3-8.2) g/dL Albumin 3.4 L (3.5-5.0) g/dL Influenza Type A (PCR) (Not Detectd) Influenza Type B (PCR) (Not Detectd) RSV (PCR) (Not Detectd) SARS-CoV-2 (PCR) (Not Detectd) 11/04/22 11/04/22 11/04/22 Range/Units 14:20 14:20 14:20 WBC (3.8-10.6) k/uL RBC (4.30-5.90) m/uL Hgb (13.0-17.5) gm/dL Hct (39.0-53.0) % MCV (80.0-100.0) fL MCH (25.0-35.0) pg MCHC (31.0-37.0) g/dL RDW (11.5-15.5) % Plt Count (150-450) k/uL MPV Neutrophils % % Lymphocytes % % Monocytes % % Eosinophils % % Basophils % % Neutrophils # (1.3-7.7) k/uL Lymphocytes # (1.0-4.8) k/uL Monocytes # (0-1.0) k/uL Eosinophils # (0-0.7) k/uL Basophils # (0-0.2) k/uL Poikilocytosis PT 11.5 (9.0-12.0) sec INR 1.1 (<1.2) APTT 24.2 (22.0-30.0) sec Sodium (137-145) mmol/L Potassium (3.5-5.1) mmol/L Chloride (98-107) mmol/L Carbon Dioxide (22-30) mmol/L Anion Gap mmol/L BUN (9-20) mg/dL Creatinine (0.66-1.25) mg/dL Est GFR (CKD-EPI)AfAm (>60 ml/min/1.73 sqM) Est GFR (CKD-EPI)NonAf (>60 ml/min/1.73 sqM) Glucose (74-99) mg/dL POC Glucose (mg/dL) (70-110) mg/dL POC Glu Make Up Artist ID Plasma Lactic Acid Kody 2.3 H* (0.7-2.0) mmol/L Calcium (8.4-10.2) mg/dL Magnesium (1.6-2.3) mg/dL Total Bilirubin (0.2-1.3) mg/dL AST (17-59) U/L ALT (4-49) U/L Alkaline Phosphatase (38-126) U/L Troponin I (0.000-0.034) ng/mL Total Protein (6.3-8.2) g/dL Albumin (3.5-5.0) g/dL Influenza Type A (PCR) Not Detected (Not Detectd) Influenza Type B (PCR) Not Detected (Not Detectd) RSV (PCR) Not Detected (Not Detectd) SARS-CoV-2 (PCR) Not Detected (Not Detectd) 11/04/22 11/04/22 Range/Units 14:20 14:24 WBC (3.8-10.6) k/uL RBC (4.30-5.90) m/uL Hgb (13.0-17.5) gm/dL Hct (39.0-53.0) % MCV (80.0-100.0) fL MCH (25.0-35.0) pg MCHC (31.0-37.0) g/dL RDW (11.5-15.5) % Plt Count (150-450) k/uL MPV Neutrophils % % Lymphocytes % % Monocytes % % Eosinophils % % Basophils % % Neutrophils # (1.3-7.7) k/uL Lymphocytes # (1.0-4.8) k/uL Monocytes # (0-1.0) k/uL Eosinophils # (0-0.7) k/uL Basophils # (0-0.2) k/uL Poikilocytosis PT (9.0-12.0) sec INR (<1.2) APTT (22.0-30.0) sec Sodium (137-145) mmol/L Potassium (3.5-5.1) mmol/L Chloride (98-107) mmol/L Carbon Dioxide (22-30) mmol/L Anion Gap mmol/L BUN (9-20) mg/dL Creatinine (0.66-1.25) mg/dL Est GFR (CKD-EPI)AfAm (>60 ml/min/1.73 sqM) Est GFR (CKD-EPI)NonAf (>60 ml/min/1.73 sqM) Glucose (74-99) mg/dL POC Glucose (mg/dL) 419 H (70-110) mg/dL POC Glu Make Up Artist ID Nancy Tejeda Plasma Lactic Acid Kody (0.7-2.0) mmol/L Calcium (8.4-10.2) mg/dL Magnesium (1.6-2.3) mg/dL Total Bilirubin (0.2-1.3) mg/dL AST (17-59) U/L ALT (4-49) U/L Alkaline Phosphatase (38-126) U/L Troponin I 6.170 H* (0.000-0.034) ng/mL Total Protein (6.3-8.2) g/dL Albumin (3.5-5.0) g/dL Influenza Type A (PCR) (Not Detectd) Influenza Type B (PCR) (Not Detectd) RSV (PCR) (Not Detectd) SARS-CoV-2 (PCR) (Not Detectd) Critical Care Time Critical Care Time: Yes Total Critical Care Time: 33 <Devin Rodriges - Last Filed: 11/04/22 16:54> Disposition <Elijah Newman - Last Filed: 11/04/22 14:33> Is patient prescribed a controlled substance at d/c from ED?: No Time of Disposition: 16:54 <Devin Rodriges - Last Filed: 11/04/22 16:54> Clinical Impression: Diabetic foot ulcer, Sepsis, Elevated troponin Disposition: ADMITTED IP TO THIS HOSP Condition: Serious Referrals: Shekhar Armenta III, MD [Primary Care Provider] - 1-2 days
[2022-11-04 14:25] LABS: Glucose,Whole Blood 419 mg/dL (70-110)
[2022-11-04 14:36] LABS: Basophils % (A) 0 %; Eosinophils % (A) 0 %; HGB 9.9 gm/dL (13.0-17.5); Lymphocytes # (A) 0.2 k/uL (1.0-4.8); Lymphocytes % (A) 2 %; MCV 91.2 fL (80.0-100.0); Mean Platelet Volume 8.4; Monocytes # (A) 0.4 k/uL (0-1.0); Monocytes % (A) 4 %; Neutrophils # (A) 8.7 k/uL (1.3-7.7); Neutrophils % (A) 92 %; Platelet Count 170 k/uL (150-450); Poikilocytosis Slight; RBC 3.18 m/uL (4.30-5.90); RDW 13.9 % (11.5-15.5); WBC 9.5 k/uL (3.8-10.6)
[2022-11-04 14:46] LABS: INR 1.1 (<1.2); Partial Thromboplastin Time 24.2 sec (22.0-30.0); Prothrombin Time 11.5 sec (9.0-12.0)
--- NOTE | 2022-11-04 14:55 | XR ---
EXAMINATION TYPE: XR chest 2V DATE OF EXAM: 11/04/2022 COMPARISON: NONE TECHNIQUE: PA and lateral views submitted. HISTORY: Dizziness FINDINGS: The lungs are clear and there is no pneumothorax, pleural effusion, or focal pneumonia. Heart size normal and no overt failure. Osseous structures demonstrate hypertrophic and degenerative changes of the spine., Fever post surgical changes with atherosclerotic change aorta. There is ectasia or mild a neurysmal dilation of the aortic arch. Diffuse osteopenia and AC joint. IMPRESSION: 1. No acute process. Correlate for COPD.
[2022-11-04 14:57] LABS: ALT 20 U/L (4-49); AST 34 U/L (17-59); African American GFR (CKD) 84 (>60 ml/min/1.73 sqM); Albumin 3.4 g/dL (3.5-5.0); Alkaline Phosphatase 82 U/L (38-126); Anion Gap 9 mmol/L; Blood Urea Nitrogen 17 mg/dL (9-20); Calcium 7.8 mg/dL (8.4-10.2); Carbon Dioxide 20 mmol/L (22-30); Chloride 99 mmol/L (98-107); Glucose 351 mg/dL (74-99); Magnesium 1.8 mg/dL (1.6-2.3); Non-African American GFR(CKD) 73 (>60 ml/min/1.73 sqM); Potassium 4.4 mmol/L (3.5-5.1); Sodium 128 mmol/L (137-145); Total Bilirubin 1.1 mg/dL (0.2-1.3); Total Protein 6.7 g/dL (6.3-8.2)
[2022-11-04] MEDS ORDERED: HEPARIN SODIUM 1,000 UN/ML (10ML VL) IV PRN (15:48)
[2022-11-04] MEDS ORDERED: HEPARIN SODIUM 1,000 UN/ML (10ML VL) IV ONE (15:48)
[2022-11-04] MEDS ORDERED: ASPIRIN 81 MG PO STA (16:10)
[2022-11-04] MEDS: HEPARIN SOD,PORK IN 0.45% NACL 25,000 UNIT in 0.45% NACL 1 250ML.BAG IV SCH (16:33)
[2022-11-04] MEDS ORDERED: HYDROmorphone 1 MG/ML 1 ML SYRINGE IVP STA (16:44)
[2022-11-04] MEDS ORDERED: NALOXONE 0.4 MG/ML 1 ML VIAL IV PRN (16:55)
[2022-11-04] MEDS ORDERED: ACETAMINOPHEN TAB 325 MG TAB PO PRN (16:55)
[2022-11-04] MEDS ORDERED: INSULIN REGULAR 100 UNIT/ML VIAL (IM/SQ) SQ ONE (16:57)
[2022-11-04] MEDS ORDERED: CLINDAMYCIN 900 MG in DEXTROSE 5% IN WATER 50 ML IVPB ONE ×2 (17:05)
[2022-11-04 17:36] LABS: Appearance,Urine Clear (Clear); Bilirubin,Urine Negative (Negative); Blood,Urine Trace (Negative); Color,Urine Yellow; Glucose,Urine (UA) 4+ (Negative); Ketones,Urine Negative (Negative); Leukocyte Esterase,Urine Moderate (Negative); Mucus,Urine Rare /hpf; Nitrite,Urine Negative (Negative); PH, Urine 5.5 (5.0-8.0); Protein,Urine 1+ (Negative); RBC,Urine 3 /hpf (0-5); Specific Gravity,Urine 1.022 (1.001-1.035); Squamous Epithelial Cell,Urine <1 /hpf (0-4); WBC,Urine 28 /hpf (0-5)
[2022-11-04] MEDS: SODIUM CHLORIDE 0.9% 1,000 ML IV SCH (17:39)
--- NOTE | 2022-11-04 18:23 | P.CRDCN ---
History of Present Illness Consult date: 11/04/22 History of present illness: History of Present Illness: The patient is a 67-year-old male with known history of CAD, status post CABG in April 2019, he received a MCRAE to the LAD, left radial to the first OM, SVG to the second OM and SVG to the RCA, he has a known history of May Thurner syndrome status post stenting of bilateral iliac vein, history of diabetes, hypertension, hyperlipidemia and chronic tobacco use and a prior history of stroke who presents with symptoms of not feeling well but without any symptoms of chest discomfort, dyspnea or dizziness. He has stage IV prostate cancer, received radiation therapy and is receiving hormonal therapy, followed by Dr. Moran. He is limited in his physical activity he has [employer] tooth worked on the right side, he had an ulcer on the right plantar aspect. He has peripheral edema for the last few months, no clear PND or orthopnea. He denies any dizziness or palpitations or syncope. He has no history of malignant arrhythmia. In the emergency room he was noted to have a troponin of 6. In the past and he had ischemic events he had associated chest discomfort. He has mild cough but no change in his breathing. He had no fever at home. His echocardiogram in 2018 showed an ejection fraction of 50-55%. His EKG today showed no acute ST segment changes. His corneas factors are positive for hypertension, hyperlipidemia, diabetes and chronic tobacco use. He had Covid infection recently but is negative at this point Medications: Glucotrol, Norvasc 2.5 mg daily, Plavix, Lipitor 40 mg daily, aspirin, Jardiance, Neurontin, trazodone, Trulicity Review of Systems: Respiratory: [No history of asthma, bronchitis , He has mild cough.] GI: [No nausea or vomiting . No history of peptic ulcer disease. No recent GI bleed.] : [No hematuria or dysuria. He has a history of prostate cancer] Nervous System: [No seizure.] Physical Examination: 67-year-old male, alert and oriented no apparent distress, temperature 102.2,blood pressure 118/60, Heart rate [ 62 ] Head: [Normocephalic.] Eyes: [Sclerae nonicteric.] Neck: [Good carotid upstroke, no bruit, no jugular venous distention.] Lungs: [Clear to auscultation.] Heart: [Regular rate and rhythm, S1-S2, no S3, no rub. Systolic ejection murmur.] Abdomen: [Soft nontender, positive bowel sounds no organomegaly.] Extremitie +2 edema, intact distal pulses.Ulceration on the bottom of the right foot ] Labs: [ Hemoglobin 9.9, white blood cell 9.5, BUN 17, creatinine 1.05. Blood sugar 351. Troponin 6.17, chest x-ray with no acute changes] EKG: [ sinus mechanism, first-degree AV block with nonspecific ST-T wave changes] Impression: 1. [Elevated troponin in a patient with known history of CAD but no chest discomfort and no EKG changes could be related to infectious process and type II event ] 2. [Status post CABG ] 3. [Diabetes mellitus with right foot ulceration ] 4. [Stage IV prostate cancer 5. History of hypertension 6. History of hyperlipidemia 7. History of smoking ] Plan: 1. [ continue aspirin and Plavix] 2. [IV heparin for 24 hours] 3. Obtain an echocardiogram with Doppler] 4. [ start beta myriam] 5. [ At this time I would maximize medical therapy, patient does not appear to be a candidate for aggressive cardiac workup Thank you for this consult we will follow with you] Past Medical History Past Medical History: Coronary Artery Disease (CAD), Cancer, Chest Pain / Angina, CVA/TIA, Diabetes Mellitus, GI Bleed, Hyperlipidemia, Hypertension, Myocardial Infarction (PR), Prostate Disorder, Renal Disease, Sleep Apnea/CPAP/BIPAP Additional Past Medical History / Comment(s): CATRACHITO 2014 , C-DIFF 2012., HX DIVERTICULOSIS, NEUROPATHY IN HANDS & FEET., LEFT KIDNEY CANCER WITH NEPHRECTOMY URETER & PART OF BLADDER & LYMPH NODES REMOVED., HAS CYST RIGHT KIDNEY, STAGE 3 KIDNEY DISEASE., HX OF SLEEP APNEA (SURGERY)., NON-HODGKINS LYMPHOMA -LAST PET SCAN NEGATIVE., STATES NO RESIDUAL EFFECT FROM HX CVA/TIA., 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 , CIRCUMCISION cataracts., PIECE OF METAL REMOVED FROM ABD (WAR WOUND) - DEVELOPED SCAR TISSUE & PART OF LARGE INTESTINE REMOVED., ABD HERNIA REPAIR. SX FOR SLEEP APNEA. COLONOSCOPY/POLYPECTOMY., SUDHEER ILIAC VEIN STENTING.,, STATES TOTAL OF 4 CARDIAC STENTS, HEART CATH 12/2018. Past Anesthesia/Blood Transfusion Reactions: No Reported Reaction Date of Last Stent Placement:: 01/2014 Past Psychological History: No Psychological Hx Reported Smoking Status: Current every day smoker Past Alcohol Use History: Occasional Past Drug Use History: None Reported - Past Family History Mother Additional Family Medical History / Comment(s): from complications from broken hip. Father Family Medical History: Cancer Sister(s) Family Medical History: Diabetes Mellitus, Deep Vein Thrombosis (DVT) Medications and Allergies Home Medications Medication Instructions Recorded Confirmed Type Clopidogrel Bisulfate [Clopidogrel] 75 mg PO DAILY 02/04/14 12/21/19 History Gabapentin [Neurontin] 600 mg PO BID 10/10/16 12/21/19 History Empagliflozin [Jardiance] 25 mg PO DAILY 12/03/18 12/21/19 History Fluticasone Nasal [place] [Flonase 1 - 2 spr EA NOSTRIL DAILY 04/29/19 12/21/19 History Nasal [place]] Pioglitazone HCl 15 mg PO DAILY 04/29/19 12/21/19 History Tamsulosin HCl [Flomax] 0.4 mg PO BID 04/29/19 12/21/19 History glipiZIDE [Glucotrol] 10 mg PO BID PRN 04/29/19 12/21/19 History Acetaminophen Tab [Tylenol] 1,000 mg PO Q6HR PRN tab 05/21/19 12/21/19 Rx Aspirin 325 mg PO DAILY tab 05/21/19 12/21/19 Rx Atorvastatin [Lipitor] 40 mg PO DAILY #30 tab 05/21/19 12/21/19 Rx Dulaglutide [Trulicity] 0.75 mg SQ MO 12/14/19 12/21/19 History Furosemide [Lasix] 20 mg PO DAILY 12/14/19 12/21/19 History Potassium Chloride [Klor-Con M10] 10 meq PO DAILY 12/14/19 12/21/19 History amLODIPine BESYLATE [Norvasc] 2.5 mg PO DAILY 12/14/19 12/21/19 History traMADol HCL [Ultram] 50 mg PO BID PRN 12/14/19 12/21/19 History traZODone HCL 50 mg PO HS 12/14/19 12/21/19 History Allergies Allergy/AdvReac Type Severity Reaction Status Date / Time Penicillins Allergy Unknown Verified 12/21/19 07:28 Childhood codeine AdvReac Unknown Nausea & Verified 12/21/19 07:28 Vomiting metformin AdvReac Nausea & Verified 12/21/19 07:28 Vomiting Physical Exam Vitals: Vital Signs Temp Pulse Resp BP Pulse Ox 11/04/22 17:50 62 20 97/51 99 11/04/22 15:40 99.8 F H 18 11/04/22 15:02 91 18 95/51 97 11/04/22 13:47 102.2 F H 80 20 118/63 96 Intake and Output 11/04/22 11/04/22 11/04/22 06:59 14:59 22:59 Other: Weight 95.254 kg Results 11/04/22 14:20 11/04/22 14:20 Cardiac Enzymes 11/04/22 11/04/22 Range/Units 14:20 14:20 AST 34 (17-59) U/L Troponin I 6.170 H* (0.000-0.034) ng/mL Coagulation 11/04/22 Range/Units 14:20 PT 11.5 (9.0-12.0) sec APTT 24.2 (22.0-30.0) sec CBC 11/04/22 Range/Units 14:20 WBC 9.5 (3.8-10.6) k/uL RBC 3.18 L (4.30-5.90) m/uL Hgb 9.9 L (13.0-17.5) gm/dL Hct 29.0 L (39.0-53.0) % Plt Count 170 (150-450) k/uL Comprehensive Metabolic Panel 11/04/22 Range/Units 14:20 Sodium 128 L (137-145) mmol/L Potassium 4.4 (3.5-5.1) mmol/L Chloride 99 (98-107) mmol/L Carbon Dioxide 20 L (22-30) mmol/L BUN 17 (9-20) mg/dL Creatinine 1.05 (0.66-1.25) mg/dL Glucose 351 H (74-99) mg/dL Calcium 7.8 L (8.4-10.2) mg/dL AST 34 (17-59) U/L ALT 20 (4-49) U/L Alkaline Phosphatase 82 (38-126) U/L Total Protein 6.7 (6.3-8.2) g/dL Albumin 3.4 L (3.5-5.0) g/dL Current Medications Generic Name Dose Route Start Last Admin Trade Name Freq PRN Reason Stop Dose Admin Acetaminophen 650 mg 11/04/22 16:55 Acetaminophen Tab 325 Mg Tab PO Q6HR PRN Mild Pain or Fever > 100.5 Heparin Sodium (Porcine) 0 unit 11/04/22 15:48 Heparin Sodium 1,000 Un/Ml (10ml Vl) IV PER PROTOCOL PRN Low PTT Protocol Hydromorphone HCl 1 mg 11/04/22 16:55 Hydromorphone 1 Mg/Ml 1 Ml Syringe IVP Q3HR PRN Severe Pain (Scale 7 to 10) Heparin Sodium/Sodium Chloride 250 mls @ 10 mls/hr 11/04/22 16:00 11/04/22 16:33 25,000 unit/ Sodium Chloride IV 10.498 units/kg/hr .Q24H RICKIE 10 mls/hr Administration Protocol 10.498 UNITS/KG/HR Clindamycin Phosphate 900 mg/ 56 mls @ 50 mls/hr 11/05/22 01:00 Dextrose/Water IVPB Q8H RICKIE Protocol Sodium Chloride 1,000 mls @ 75 mls/hr 11/04/22 17:00 11/04/22 17:39 Saline 0.9% IV 75 mls/hr .[id number] RICKIE Administration Naloxone HCl 0.2 mg 11/04/22 16:55 Naloxone 0.4 Mg/Ml 1 Ml Vial IV Q2M PRN Opioid Reversal Pantoprazole Sodium 40 mg 11/05/22 09:00 Pantoprazole 40 Mg/10 Ml Vial IV DAILY RICKIE Intake and Output 11/04/22 11/04/22 11/04/22 06:59 14:59 22:59 Other: Weight 95.254 kg Patient Weight 11/05/22 06:59 Weight 95.254 kg 11/04/22 14:20 11/04/22 14:20
[2022-11-04] MEDS: CLOPIDOGREL 75 MG TAB PO SCH (18:40)
[2022-11-04] MEDS: ATORVASTATIN 40 MG TAB PO SCH (18:41)
--- NOTE | 2022-11-04 19:21 | XR ---
EXAMINATION TYPE: XR foot complete RT DATE OF EXAM: 11/04/2022 7:03 PM INDICATION: Patient age:Male; 67 years old; Reason for study: wound; PHH. COMPARISON: 12/13/2018 TECHNIQUE: The right foot was examined in the AP, oblique, and lateral projections. FINDINGS: There is abnormal collapse of the midfoot with flattening of the foot. Wound is seen along the planta r surface. Underlying fracture and osteomyelitis not entirely excluded. Findings are new from prior e xam. There is severe degeneration of the midfoot joints with osteophyte formation joint space narrowi ng. IMPRESSION: Wound involving the plantar surface with deformity to the mid foot. Findings suspicious for Charcot n euroarthropathy.
[2022-11-04 19:31] LABS: Glucose,Whole Blood 266 mg/dL (70-110)
[2022-11-04] MEDS: HYDROmorphone 1 MG/ML 1 ML SYRINGE IVP PRN ×2 (20:41→23:47)
[2022-11-04] MEDS ORDERED: DEXTROSE 50% SYRINGE 50 ML IVP PRN ×2 (22:42)
[2022-11-04] MEDS: INSULIN ASPART (NovoLOG) 100 UNIT/ML VIAL SQ SCH (23:20)
[2022-11-04 23:28] LABS: Glucose,Whole Blood 164 mg/dL (70-110)
[2022-11-04] MEDS: METOPROLOL TARTRATE 25 MG TAB PO SCH (23:49)
[2022-11-05] MEDS: CLINDAMYCIN 900 MG in DEXTROSE 5% IN WATER 50 ML IVPB SCH ×4 (00:52→08:00)
[2022-11-05] MEDS: HYDROmorphone 1 MG/ML 1 ML SYRINGE IVP PRN ×5 (04:21→21:22)
[2022-11-05 05:18] LABS: Basophils % (A) 0 %; Eosinophils % (A) 1 %; HCT 26.5 % (39.0-53.0); HGB 9.1 gm/dL (13.0-17.5); Hypochromasia Slight; Lymphocytes # (A) 0.4 k/uL (1.0-4.8); Lymphocytes % (A) 9 %; MCH 31.5 pg (25.0-35.0); MCHC 34.4 g/dL (31.0-37.0); MCV 91.6 fL (80.0-100.0); Mean Platelet Volume 8.4; Monocytes # (A) 0.3 k/uL (0-1.0); Monocytes % (A) 6 %; Neutrophils # (A) 3.8 k/uL (1.3-7.7); Neutrophils % (A) 82 %; Platelet Count 138 k/uL (150-450); Poikilocytosis Slight; RBC 2.89 m/uL (4.30-5.90); WBC 4.6 k/uL (3.8-10.6)
[2022-11-05 05:29] LABS: INR 1.1 (<1.2); Partial Thromboplastin Time 43.5 sec (22.0-30.0); Prothrombin Time 11.7 sec (9.0-12.0)
[2022-11-05 05:35] LABS: ALT 20 U/L (4-49); AST 33 U/L (17-59); African American GFR (CKD) 83 (>60 ml/min/1.73 sqM); Albumin 2.9 g/dL (3.5-5.0); Alkaline Phosphatase 72 U/L (38-126); Anion Gap 6 mmol/L; Blood Urea Nitrogen 18 mg/dL (9-20); Calcium 7.7 mg/dL (8.4-10.2); Carbon Dioxide 24 mmol/L (22-30); Chloride 102 mmol/L (98-107); Glucose 239 mg/dL (74-99); Non-African American GFR(CKD) 72 (>60 ml/min/1.73 sqM); Potassium 4.3 mmol/L (3.5-5.1); Sodium 132 mmol/L (137-145); Total Bilirubin 0.9 mg/dL (0.2-1.3)
[2022-11-05 06:17] LABS: Glucose,Whole Blood 239 mg/dL (70-110)
[2022-11-05] MEDS: INSULIN ASPART (NovoLOG) 100 UNIT/ML VIAL SQ SCH ×4 (06:39→21:23)
[2022-11-05] MEDS: SODIUM CHLORIDE 0.9% 1,000 ML IV SCH (06:39)
[2022-11-05] MEDS: ASPIRIN 81 MG PO SCH (08:00)
[2022-11-05] MEDS: METOPROLOL TARTRATE 25 MG TAB PO SCH ×2 (08:00→21:22)
[2022-11-05] MEDS: ATORVASTATIN 40 MG TAB PO SCH (08:00)
[2022-11-05] MEDS: CLOPIDOGREL 75 MG TAB PO SCH (08:00)
[2022-11-05] MEDS: PANTOPRAZOLE 40 MG/10 ML VIAL IV SCH (08:00)
[2022-11-05 11:27] LABS: Glucose,Whole Blood 258 mg/dL (70-110)
[2022-11-05] MEDS ORDERED: FUROSEMIDE 10 MG/ML 4 ML VIAL IV STA (12:11)
--- NOTE | 2022-11-05 13:18 | P.PN ---
Subjective Progress Note Date: 11/05/22 PROGRESS NOTE The patient is a 67-year-old male with known history of CAD, status post CABG in April 2019, he received a MCRAE to the LAD, left radial to the first OM, SVG to the second OM and SVG to the RCA, he has a known history of May Thurner syndrome status post stenting of bilateral iliac vein, history of diabetes, hypertension, hyperlipidemia and chronic tobacco use and a prior history of stroke who presents with symptoms of not feeling well but without any symptoms of chest discomfort, dyspnea or dizziness. He has stage IV prostate cancer, received radiation therapy and is receiving hormonal therapy, followed by Dr. Moran. He is limited in his physical activity he has [employer] tooth worked on the right side, he had an ulcer on the right plantar aspect. He has peripheral edema for the last few months, no clear PND or orthopnea. He denies any dizziness or palpitations or syncope. He has no history of malignant arrhythmia. In the emergency room he was noted to have a troponin of 6. In the past and he had ischemic events he had associated chest discomfort. He has mild cough but no change in his breathing. He had no fever at home. His echocardiogram in 2018 showed an ejection fraction of 50-55%. His EKG today showed no acute ST segment changes. His corneas factors are positive for hypertension, hyperlipidemia, diabetes and chronic tobacco use. He had Covid infection recently but is negative at this point November 05: The patient feels better today, he denies any chest discomfort, dizziness or palpitations. His troponin is trending down. He denies any nausea or vomiting. He has no cough or fever. He continues to be in sinus mechanism. He had the foot x-ray that showed evidence consistent with Charcot neuroarthropathy. His echocardiogram is pending Medications: Aspirin, Plavix 75 mg daily, Neurontin, glipizide, Lipitor 40 mg daily, IV heparin, insulin, metoprolol 25 mg twice a day PHYSICAL EXAMINATION: Blood pressure 109/60 heart rate 50 LUNGS: Clear to auscultation HEART: Regular rate and rhythm, S1, S2. No S3. Systolic ejection murmur ABDOMEN: Soft, nontender, no organomegaly EXTREMETIES: +1 edema, ulceration on the plantar aspect of the right foot LAB: Potassium 4.3, BUN 18, creatinine 1.06. Troponin 3.92 IMPRESSION: 1. Non-STEMI with no associated chest discomfort in a patient with infection in the right foot and stage IV prostate cancer, post CABG 2. Status post CABG 3. Stage IV prostate cancer 4. History of diabetes 5. Charcot tooth foot PLAN: 1. Obtain an echocardiogram with Doppler 2. Stop IV heparin 3. IV Lasix 1 4. Awaiting oncology input 5. At this time I do not believe that he is a candidate for any aggressive wor kup considering the absence of symptoms and the comorbid state. Objective - Vital Signs Vital signs: Vital Signs Temp 98.0 F 11/05/22 07:56 Pulse 51 L 11/05/22 11:41 Resp 17 11/05/22 11:41 BP 109/61 11/05/22 11:41 Pulse Ox 95 11/05/22 11:41 FiO2 Intake & Output 11/04/22 11/05/22 11/05/22 18:59 06:59 18:59 Intake Total 143.200 118 Output Total 200 200 Balance -56.800 -82 Weight 95.254 kg 95.254 kg Intake: Intake, IV Titration 143.200 Amount Heparin Sod,Pork in 0.45% 143.200 NaCl 25,000 unit In 0.45 % NaCl 1 250ml.bag @ 10. 498 UNITS/KG/HR 10 mls/hr IV .Q24H [facility] Rx#: [id number] Oral 118 Output: Urine 200 200 Other: Voiding Method Urinal Urinal # Voids 1 - Labs CBC & Chem 7: 11/05/22 04:36 11/05/22 04:36 Labs: Abnormal Lab Results - Last 24 Hours (Table) 11/04/22 11/04/22 11/04/22 Range/Units 14:04 14:20 14:20 RBC 3.18 L (4.30-5.90) m/uL Hgb 9.9 L (13.0-17.5) gm/dL Hct 29.0 L (39.0-53.0) % Plt Count (150-450) k/uL Neutrophils # 8.7 H (1.3-7.7) k/uL Lymphocytes # 0.2 L (1.0-4.8) k/uL APTT (22.0-30.0) sec Sodium 128 L (137-145) mmol/L Carbon Dioxide 20 L (22-30) mmol/L Glucose 351 H (74-99) mg/dL POC Glucose (mg/dL) 387 H (70-110) mg/dL Hemoglobin A1c (<=6.0) % Plasma Lactic Acid Kody (0.7-2.0) mmol/L Calcium 7.8 L (8.4-10.2) mg/dL Creatine Kinase (55-170) U/L Troponin I (0.000-0.034) ng/mL Total Protein (6.3-8.2) g/dL Albumin 3.4 L (3.5-5.0) g/dL Procalcitonin (0.02-0.09) ng/mL Urine Protein (Negative) Urine Glucose (UA) (Negative) Urine Blood (Negative) Ur Leukocyte Esterase (Negative) Urine WBC (0-5) /hpf Urine Mucus (None) /hpf 11/04/22 11/04/22 11/04/22 Range/Units 14:20 14:20 14:20 RBC (4.30-5.90) m/uL Hgb (13.0-17.5) gm/dL Hct (39.0-53.0) % Plt Count (150-450) k/uL Neutrophils # (1.3-7.7) k/uL Lymphocytes # (1.0-4.8) k/uL APTT (22.0-30.0) sec Sodium (137-145) mmol/L Carbon Dioxide (22-30) mmol/L Glucose (74-99) mg/dL POC Glucose (mg/dL) (70-110) mg/dL Hemoglobin A1c (<=6.0) % Plasma Lactic Acid Kody 2.3 H* (0.7-2.0) mmol/L Calcium (8.4-10.2) mg/dL Creatine Kinase (55-170) U/L Troponin I 6.170 H* (0.000-0.034) ng/mL Total Protein (6.3-8.2) g/dL Albumin (3.5-5.0) g/dL Procalcitonin 1.64 H (0.02-0.09) ng/mL Urine Protein (Negative) Urine Glucose (UA) (Negative) Urine Blood (Negative) Ur Leukocyte Esterase (Negative) Urine WBC (0-5) /hpf Urine Mucus (None) /hpf 11/04/22 11/04/22 11/04/22 Range/Units 14:24 17:24 17:56 RBC (4.30-5.90) m/uL Hgb (13.0-17.5) gm/dL Hct (39.0-53.0) % Plt Count (150-450) k/uL Neutrophils # (1.3-7.7) k/uL Lymphocytes # (1.0-4.8) k/uL APTT (22.0-30.0) sec Sodium (137-145) mmol/L Carbon Dioxide (22-30) mmol/L Glucose (74-99) mg/dL POC Glucose (mg/dL) 419 H (70-110) mg/dL Hemoglobin A1c (<=6.0) % Plasma Lactic Acid Kody (0.7-2.0) mmol/L Calcium (8.4-10.2) mg/dL Creatine Kinase (55-170) U/L Troponin I 5.280 H* (0.000-0.034) ng/mL Total Protein (6.3-8.2) g/dL Albumin (3.5-5.0) g/dL Procalcitonin (0.02-0.09) ng/mL Urine Protein 1+ H (Negative) Urine Glucose (UA) 4+ H (Negative) Urine Blood Trace H (Negative) Ur Leukocyte Esterase Moderate H (Negative) Urine WBC 28 H (0-5) /hpf Urine Mucus Rare H (None) /hpf 11/04/22 11/04/22 11/04/22 Range/Units 17:56 19:29 21:30 RBC (4.30-5.90) m/uL Hgb (13.0-17.5) gm/dL Hct (39.0-53.0) % Plt Count (150-450) k/uL Neutrophils # (1.3-7.7) k/uL Lymphocytes # (1.0-4.8) k/uL APTT 37.0 H (22.0-30.0) sec Sodium (137-145) mmol/L Carbon Dioxide (22-30) mmol/L Glucose (74-99) mg/dL POC Glucose (mg/dL) 266 H (70-110) mg/dL Hemoglobin A1c 7.8 H (<=6.0) % Plasma Lactic Acid Kody (0.7-2.0) mmol/L Calcium (8.4-10.2) mg/dL Creatine Kinase (55-170) U/L Troponin I (0.000-0.034) ng/mL Total Protein (6.3-8.2) g/dL Albumin (3.5-5.0) g/dL Procalcitonin (0.02-0.09) ng/mL Urine Protein (Negative) Urine Glucose (UA) (Negative) Urine Blood (Negative) Ur Leukocyte Esterase (Negative) Urine WBC (0-5) /hpf Urine Mucus (None) /hpf 11/04/22 11/04/22 11/05/22 Range/Units 21:30 23:10 04:36 RBC 2.89 L (4.30-5.90) m/uL Hgb 9.1 L (13.0-17.5) gm/dL Hct 26.5 L (39.0-53.0) % Plt Count 138 L (150-450) k/uL Neutrophils # (1.3-7.7) k/uL Lymphocytes # 0.4 L (1.0-4.8) k/uL APTT (22.0-30.0) sec Sodium (137-145) mmol/L Carbon Dioxide (22-30) mmol/L Glucose (74-99) mg/dL POC Glucose (mg/dL) 164 H (70-110) mg/dL Hemoglobin A1c (<=6.0) % Plasma Lactic Acid Kody (0.7-2.0) mmol/L Calcium (8.4-10.2) mg/dL Creatine Kinase (55-170) U/L Troponin I 3.920 H* (0.000-0.034) ng/mL Total Protein (6.3-8.2) g/dL Albumin (3.5-5.0) g/dL Procalcitonin (0.02-0.09) ng/mL Urine Protein (Negative) Urine Glucose (UA) (Negative) Urine Blood (Negative) Ur Leukocyte Esterase (Negative) Urine WBC (0-5) /hpf Urine Mucus (None) /hpf 11/05/22 11/05/22 11/05/22 Range/Units 04:36 04:36 06:15 RBC (4.30-5.90) m/uL Hgb (13.0-17.5) gm/dL Hct (39.0-53.0) % Plt Count (150-450) k/uL Neutrophils # (1.3-7.7) k/uL Lymphocytes # (1.0-4.8) k/uL APTT 43.5 H (22.0-30.0) sec Sodium 132 L (137-145) mmol/L Carbon Dioxide (22-30) mmol/L Glucose 239 H (74-99) mg/dL POC Glucose (mg/dL) 239 H (70-110) mg/dL Hemoglobin A1c (<=6.0) % Plasma Lactic Acid Kody (0.7-2.0) mmol/L Calcium 7.7 L (8.4-10.2) mg/dL Creatine Kinase (55-170) U/L Troponin I (0.000-0.034) ng/mL Total Protein 6.0 L (6.3-8.2) g/dL Albumin 2.9 L (3.5-5.0) g/dL Procalcitonin (0.02-0.09) ng/mL Urine Protein (Negative) Urine Glucose (UA) (Negative) Urine Blood (Negative) Ur Leukocyte Esterase (Negative) Urine WBC (0-5) /hpf Urine Mucus (None) /hpf 11/05/22 11/05/22 11/05/22 Range/Units 11:26 11:31 11:31 RBC (4.30-5.90) m/uL Hgb (13.0-17.5) gm/dL Hct (39.0-53.0) % Plt Count (150-450) k/uL Neutrophils # (1.3-7.7) k/uL Lymphocytes # (1.0-4.8) k/uL APTT 47.9 H (22.0-30.0) sec Sodium (137-145) mmol/L Carbon Dioxide (22-30) mmol/L Glucose (74-99) mg/dL POC Glucose (mg/dL) 258 H (70-110) mg/dL Hemoglobin A1c (<=6.0) % Plasma Lactic Acid Kody (0.7-2.0) mmol/L Calcium (8.4-10.2) mg/dL Creatine Kinase 172 H (55-170) U/L Troponin I (0.000-0.034) ng/mL Total Protein (6.3-8.2) g/dL Albumin (3.5-5.0) g/dL Procalcitonin (0.02-0.09) ng/mL Urine Protein (Negative) Urine Glucose (UA) (Negative) Urine Blood (Negative) Ur Leukocyte Esterase (Negative) Urine WBC (0-5) /hpf Urine Mucus (None) /hpf
[2022-11-05] MEDS ORDERED: VANCOMYCIN IV PER PHARMACY 1 EACH MISC MISCELLANE PRN (13:30)
[2022-11-05] MEDS ORDERED: VANCOMYCIN 1,500 MG in SODIUM CHLORIDE 0.9% 500 ML 500 ML IVPB ONE (13:45)
[2022-11-05] MEDS: HEPARIN SOD,PORK IN 0.45% NACL 25,000 UNIT in 0.45% NACL 1 250ML.BAG IV SCH (15:14)
--- NOTE | 2022-11-05 15:34 | CT ---
EXAMINATION TYPE: CT foot RT w con DATE OF EXAM: 11/05/2022 COMPARISON: 10/24/2019 HISTORY: right foot abscess CT DLP: 190.3 mGycm Automated exposure control for dose reduction was used. Contrast: None Technique: Axial images 2 mm thick sections. Reconstructed images in the coronal and sagittal plane. Three-D reconstructed images performed on a separate computer by the technologist reviewed. FINDINGS: Persistent of a Charcot joint of the midfoot. There is advanced degenerative joint changes through th e tarsal metatarsal junctions. There is some angulation of the metatarsals in relation to the tarsal bones. There is flattening and reversal of the plantar arch through this region Below the region of the cuboid and cuneiforms or soft tissue abnormality. This has an open wound on t he plantar aspect of the foot with soft tissue inflammatory changes extending towards the osseous str uctures at this level. May be some increasing subcutaneous air at this level on the current examinati on. A definite cortical erosion however is not clearly identified. There may be some old destructive changes evident, this appears thin but intact cortical wall. IMPRESSION: 1. CHARCOT JOINT OF THE MID FOOT. THERE IS INCREASING SOFT TISSUE INFLAMMATORY CHANGES AND SUBCUTANEO US AIR. CORTICAL EROSION OR SIGNIFICANT OSSEOUS CHANGE FROM COMPARISON IS NOT IDENTIFIED.
--- NOTE | 2022-11-05 15:36 | P.GSCN ---
History of Present Illness History of present illness: 67-year-old gentleman who came to the emergency room with history of infected callus right foot plantar aspect patient had a x-ray of the foot patient has a Charcot foot foot with the large callus abscess on the plantar aspect patient days scheduled to have a debridement and deep culture. 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 Neck is supple no bruit appreciated Chest is clear abdomen is soft patient has a history of see of prostate Vascular femorals are 1+ bilateral patient is a Charcot foot with the large infected callus on the plantar aspect of the right foot Plan is debridement with deep culture risk and complication discussed Plan is consent for right foot debridement keep patient nothing by mouth midnight patient will have surgery tomorrow Past Medical History Past Medical History: Coronary Artery Disease (CAD), Cancer, Chest Pain / Angina, CVA/TIA, Diabetes Mellitus, GI Bleed, Hyperlipidemia, Hypertension, Myocardial Infarction ([place]), Prostate Disorder, Renal Disease, Sleep Apnea/CPAP/BIPAP Additional Past Medical History / Comment(s): SHINMAGALY 2014 , C-DIFF 2012., HX DIVERTICULOSIS, NEUROPATHY IN HANDS & FEET., LEFT KIDNEY CANCER WITH NEPHRECTOMY URETER & PART OF BLADDER & LYMPH NODES REMOVED., HAS CYST RIGHT KIDNEY, STAGE 3 KIDNEY DISEASE., HX OF SLEEP APNEA (SURGERY)., NON-HODGKINS LYMPHOMA -LAST PET SCAN NEGATIVE., STATES NO RESIDUAL EFFECT FROM HX CVA/TIA., 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 , CIRCUMCISION cataracts., PIECE OF METAL REMOVED FROM ABD (WAR WOUND) - DEVELOPED SCAR TISSUE & PART OF LARGE INTESTINE REMOVED., ABD HERNIA REPAIR. SX FOR SLEEP APNEA. COLONOSCOPY/POLYPECTOMY., SUDHEER ILIAC VEIN STENTING.,, STATES TOTAL OF 4 CARDIAC STENTS, HEART CATH 12/2018. Past Anesthesia/Blood Transfusion Reactions: No Reported Reaction Date of Last Stent Placement:: 01/2014 Past Psychological History: No Psychological Hx Reported Additional Psychological History / Comment(s): . Smoking Status: Current every day smoker Past Alcohol Use History: Occasional Additional Past Alcohol Use History / Comment(s): QUIT SMOKING (MAR 2019). and restarted in 2019, STARTED SMOKING AT AGE 12, SMOKED LESS THAN 1/2 PPD. Past Drug Use History: None Reported - Past Family History Mother Additional Family Medical History / Comment(s): from complications from broken hip. Father Family Medical History: Cancer Sister(s) Family Medical History: Diabetes Mellitus, Deep Vein Thrombosis (DVT) Medications and Allergies Home Medications Medication Instructions Recorded Confirmed Type Clopidogrel Bisulfate [Clopidogrel] 75 mg PO DAILY 02/04/14 11/04/22 History Fluticasone Nasal [place] [Flonase 1 spr EA NOSTRIL DAILY 04/29/19 11/04/22 History Nasal [place]] glipiZIDE [Glucotrol] 10 mg PO BID 04/29/19 11/04/22 History amLODIPine BESYLATE [Norvasc] 2.5 mg PO DAILY 12/14/19 11/04/22 History Eszopiclone [Lunesta] 2 mg PO HS 11/04/22 11/04/22 History Gabapentin 600 mg PO TID 11/04/22 11/04/22 History hydrOXYzine HCL [Atarax] 50 mg PO HS PRN 11/04/22 11/04/22 History oxyCODONE-APAP 10-325MG [Percocet 1 tab PO QID PRN 11/04/22 11/04/22 History 10-325 mg] Allergies Allergy/AdvReac Type Severity Reaction Status Date / Time Penicillins Allergy Unknown Verified 11/04/22 19:10 Childhood Tetanus Vaccines and Toxoid Allergy Unknown Verified 11/04/22 19:10 Childhood metformin AdvReac Nausea & Verified 11/04/22 19:10 Vomiting Surgical - Exam Vital Signs Temp Pulse Resp BP Pulse Ox 102.2 F H 80 20 118/63 96 11/04/22 13:47 11/04/22 13:47 11/04/22 13:47 11/04/22 13:47 11/04/22 13:47 Results - Labs 11/05/22 04:36 11/05/22 04:36 Abnormal Lab Results - Last 24 Hours (Table) 11/04/22 11/04/22 11/04/22 Range/Units 14:20 17:24 17:56 RBC (4.30-5.90) m/uL Hgb (13.0-17.5) gm/dL Hct (39.0-53.0) % Plt Count (150-450) k/uL Lymphocytes # (1.0-4.8) k/uL APTT (22.0-30.0) sec Sodium (137-145) mmol/L Glucose (74-99) mg/dL POC Glucose (mg/dL) (70-110) mg/dL Hemoglobin A1c (<=6.0) % Calcium (8.4-10.2) mg/dL Creatine Kinase (55-170) U/L Troponin I 5.280 H* (0.000-0.034) ng/mL Total Protein (6.3-8.2) g/dL Albumin (3.5-5.0) g/dL Procalcitonin 1.64 H (0.02-0.09) ng/mL Urine Protein 1+ H (Negative) Urine Glucose (UA) 4+ H (Negative) Urine Blood Trace H (Negative) Ur Leukocyte Esterase Moderate H (Negative) Urine WBC 28 H (0-5) /hpf Urine Mucus Rare H (None) /hpf 11/04/22 11/04/22 11/04/22 Range/Units 17:56 19:29 21:30 RBC (4.30-5.90) m/uL Hgb (13.0-17.5) gm/dL Hct (39.0-53.0) % Plt Count (150-450) k/uL Lymphocytes # (1.0-4.8) k/uL APTT 37.0 H (22.0-30.0) sec Sodium (137-145) mmol/L Glucose (74-99) mg/dL POC Glucose (mg/dL) 266 H (70-110) mg/dL Hemoglobin A1c 7.8 H (<=6.0) % Calcium (8.4-10.2) mg/dL Creatine Kinase (55-170) U/L Troponin I (0.000-0.034) ng/mL Total Protein (6.3-8.2) g/dL Albumin (3.5-5.0) g/dL Procalcitonin (0.02-0.09) ng/mL Urine Protein (Negative) Urine Glucose (UA) (Negative) Urine Blood (Negative) Ur Leukocyte Esterase (Negative) Urine WBC (0-5) /hpf Urine Mucus (None) /hpf 11/04/22 11/04/22 11/05/22 Range/Units 21:30 23:10 04:36 RBC 2.89 L (4.30-5.90) m/uL Hgb 9.1 L (13.0-17.5) gm/dL Hct 26.5 L (39.0-53.0) % Plt Count 138 L (150-450) k/uL Lymphocytes # 0.4 L (1.0-4.8) k/uL APTT (22.0-30.0) sec Sodium (137-145) mmol/L Glucose (74-99) mg/dL POC Glucose (mg/dL) 164 H (70-110) mg/dL Hemoglobin A1c (<=6.0) % Calcium (8.4-10.2) mg/dL Creatine Kinase (55-170) U/L Troponin I 3.920 H* (0.000-0.034) ng/mL Total Protein (6.3-8.2) g/dL Albumin (3.5-5.0) g/dL Procalcitonin (0.02-0.09) ng/mL Urine Protein (Negative) Urine Glucose (UA) (Negative) Urine Blood (Negative) Ur Leukocyte Esterase (Negative) Urine WBC (0-5) /hpf Urine Mucus (None) /hpf 11/05/22 11/05/22 11/05/22 Range/Units 04:36 04:36 06:15 RBC (4.30-5.90) m/uL Hgb (13.0-17.5) gm/dL Hct (39.0-53.0) % Plt Count (150-450) k/uL Lymphocytes # (1.0-4.8) k/uL APTT 43.5 H (22.0-30.0) sec Sodium 132 L (137-145) mmol/L Glucose 239 H (74-99) mg/dL POC Glucose (mg/dL) 239 H (70-110) mg/dL Hemoglobin A1c (<=6.0) % Calcium 7.7 L (8.4-10.2) mg/dL Creatine Kinase (55-170) U/L Troponin I (0.000-0.034) ng/mL Total Protein 6.0 L (6.3-8.2) g/dL Albumin 2.9 L (3.5-5.0) g/dL Procalcitonin (0.02-0.09) ng/mL Urine Protein (Negative) Urine Glucose (UA) (Negative) Urine Blood (Negative) Ur Leukocyte Esterase (Negative) Urine WBC (0-5) /hpf Urine Mucus (None) /hpf 11/05/22 11/05/22 11/05/22 Range/Units 11:26 11:31 11:31 RBC (4.30-5.90) m/uL Hgb (13.0-17.5) gm/dL Hct (39.0-53.0) % Plt Count (150-450) k/uL Lymphocytes # (1.0-4.8) k/uL APTT 47.9 H (22.0-30.0) sec Sodium (137-145) mmol/L Glucose (74-99) mg/dL POC Glucose (mg/dL) 258 H (70-110) mg/dL Hemoglobin A1c (<=6.0) % Calcium (8.4-10.2) mg/dL Creatine Kinase 172 H (55-170) U/L Troponin I (0.000-0.034) ng/mL Total Protein (6.3-8.2) g/dL Albumin (3.5-5.0) g/dL Procalcitonin (0.02-0.09) ng/mL Urine Protein (Negative) Urine Glucose (UA) (Negative) Urine Blood (Negative) Ur Leukocyte Esterase (Negative) Urine WBC (0-5) /hpf Urine Mucus (None) /hpf Diabetes panel 11/04/22 11/05/22 Range/Units 17:56 04:36 Sodium 132 L (137-145) mmol/L Potassium 4.3 (3.5-5.1) mmol/L Chloride 102 (98-107) mmol/L Carbon Dioxide 24 (22-30) mmol/L BUN 18 (9-20) mg/dL Creatinine 1.06 (0.66-1.25) mg/dL Glucose 239 H (74-99) mg/dL Hemoglobin A1c 7.8 H (<=6.0) % Calcium 7.7 L (8.4-10.2) mg/dL AST 33 (17-59) U/L ALT 20 (4-49) U/L Alkaline Phosphatase 72 (38-126) U/L Total Protein 6.0 L (6.3-8.2) g/dL Albumin 2.9 L (3.5-5.0) g/dL Calcium panel 11/05/22 Range/Units 04:36 Calcium 7.7 L (8.4-10.2) mg/dL Albumin 2.9 L (3.5-5.0) g/dL Pituitary panel 11/05/22 Range/Units 04:36 Sodium 132 L (137-145) mmol/L Potassium 4.3 (3.5-5.1) mmol/L Chloride 102 (98-107) mmol/L Carbon Dioxide 24 (22-30) mmol/L BUN 18 (9-20) mg/dL Creatinine 1.06 (0.66-1.25) mg/dL Glucose 239 H (74-99) mg/dL Calcium 7.7 L (8.4-10.2) mg/dL Adrenal panel 11/05/22 Range/Units 04:36 Sodium 132 L (137-145) mmol/L Potassium 4.3 (3.5-5.1) mmol/L Chloride 102 (98-107) mmol/L Carbon Dioxide 24 (22-30) mmol/L BUN 18 (9-20) mg/dL Creatinine 1.06 (0.66-1.25) mg/dL Glucose 239 H (74-99) mg/dL Calcium 7.7 L (8.4-10.2) mg/dL Total Bilirubin 0.9 (0.2-1.3) mg/dL AST 33 (17-59) U/L ALT 20 (4-49) U/L Alkaline Phosphatase 72 (38-126) U/L Total Protein 6.0 L (6.3-8.2) g/dL Albumin 2.9 L (3.5-5.0) g/dL
[2022-11-05] MEDS: oxyCODONE-APAP 10-325MG 1 EACH TAB PO PRN (15:39)
[2022-11-05] MEDS: metroNIDAZOLE 500 MG TAB PO SCH ×2 (15:39→21:22)
[2022-11-05] MEDS: GABAPENTIN 300 MG CAP PO SCH ×2 (15:39→21:22)
[2022-11-05 16:13] LABS: Glucose,Whole Blood 223 mg/dL (70-110)
--- NOTE | 2022-11-05 16:20 | P.CONS ---
History of Present Illness - Reason for Consult Consult date: 11/05/22 hx prostate cancer Requesting physician: Devin Rodriges - Chief Complaint weakness, foot wound - History of Present Illness Patient is a 67-year-old male with a significant history of prostate cancer and multiple comorbidities. He is a patient of Dr. Moran. He was diagnosed with prostate cancer in August 2019, prostate biopies revealing feliciano 8(4+4) in 5 cores. He underwent EBRT and LHRH agonist treatment for 18 months. PSA was down to 0.2 on 05/19/2021. On 02/11/2022, PSA was up to 33.3, and subsequently went back on LHRH agnoist and started xtandi. His CT scan of chest/abdomen/plevis on 02/24/2022 revealed retroperitoneal nodes, bone scan on 04/08/2022, revealed ev idence of osseous mets involving sternum, ribs and pelvic bones. He had palliative radiation therapy to sternum in June/2022. Due to side effects of Xtandi, patient was switched to Nubeqa, however patient just received medication and has not yet started. He continues with lupron injections with Dr. Camara. He was also started on Xgeva on 10/20/22. Patient presented to the emergency room with generalized weakness as well as complaints of right foot wound. Patient reports pricing 10 days ago he noticed a wound or developing on the bottom of his right foot. Denies any known injury but states she was walking a lot on a recent vacation and believes this attributed to it. Patient also reports last week he tested positive for coated. Patient denies shortness of breath and chest pain. Denies fever and chills at home, but did present with a temp of 102.2. Denies nausea vomiting diarrhea. O n admission chest x-ray showed no acute process, correlate for COPD. Influenza, RSV, and COVID negative. Blood cultures and wound culture pending. Foot x-ray showed wound involving the plantar surface with deformity to the midfoot. Findings suspicious for charcot neuroarthropathy. Patient has been started on clindamycin and ID has been consulted. Upon review of labs, troponins were elevated upon admission, and patient was started on heparin drip. Cardiology consulted with plan for echocardiogram. Patient is also on Plavix and aspirin. Normocytic normochromic anemia also noted, hemoglobin 9.1. Upon trending labs anemia was noted during previous admissions dating back to 2019. During clinic follow-up in the last 2 months hemoglobin was in normal range of 12-13. Patient denies any rectal bleeding or dark tarry stools. WBC and platelets stable. Review of Systems 10 point ROS is negative except as stated in the HPI Past Medical History Past Medical History: Coronary Artery Disease (CAD), Cancer, Chest Pain / An nickolas, CVA/TIA, Diabetes Mellitus, GI Bleed, Hyperlipidemia, Hypertension, Myocardial Infarction ([place]), Prostate Disorder, Renal Disease, Sleep Apnea/CPAP/BIPAP Additional Past Medical History / Comment(s): SHINGLES 2013 , C-DIFF 2012., HX DIVERTICULOSIS, NEUROPATHY IN HANDS & FEET., LEFT KIDNEY CANCER WITH NEPHRECTOMY URETER & PART OF BLADDER & LYMPH NODES REMOVED., HAS CYST RIGHT KIDNEY, STAGE 3 KIDNEY DISEASE., HX OF SLEEP APNEA (SURGERY)., NON-HODGKINS LYMPHOMA -LAST PET SCAN NEGATIVE., STATES NO RESIDUAL EFFECT FROM HX CVA/TIA., 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 , CIRCUMCISION cataracts., PIECE OF METAL REMOVED FROM ABD (WAR WOUND) - DEVELOPED SCAR TISSUE & PART OF LARGE INTESTINE REMOVED., ABD HERNIA REPAIR. SX FOR SLEEP APNEA. COLONOSCOPY/POLYPECTOMY., SUDHEER ILIAC VEIN STENTING.,, STATES TOTAL OF 4 CARDIAC STENTS, HEART CATH 12/2018. Past Anesthesia/Blood Transfusion Reactions: No Reported Reaction Date of Last Stent Placement:: 01/2014 Past Psychological History: No Psychological Hx Reported Additional Psychological History / Comment(s): . Smoking Status: Current every day smoker Past Alcohol Use History: Occasional Additional Past Alcohol Use History / Comment(s): QUIT SMOKING (MAR 2019). and r estarted in 2019, STARTED SMOKING AT AGE 12, SMOKED LESS THAN 1/2 PPD. Past Drug Use History: None Reported - Past Family History Mother Additional Family Medical History / Comment(s): from complications from broken hip. Father Family Medical History: Cancer Sister(s) Family Medical History: Diabetes Mellitus, Deep Vein Thrombosis (DVT) Medications and Allergies Home Medications Medication Instructions Recorded Confirmed Type Clopidogrel Bisulfate [Clopidogrel] 75 mg PO DAILY 02/04/14 11/04/22 History Fluticasone Nasal [place] [Flonase 1 spr EA NOSTRIL DAILY 04/29/19 11/04/22 History Nasal [place]] glipiZIDE [Glucotrol] 10 mg PO BID 04/29/19 11/04/22 History amLODIPine BESYLATE [Norvasc] 2.5 mg PO DAILY 12/14/19 11/04/22 History Eszopiclone [Lunesta] 2 mg PO HS 11/04/22 11/04/22 History Gabapentin 600 mg PO TID 11/04/22 11/04/22 History hydrOXYzine HCL [Atarax] 50 mg PO HS PRN 11/04/22 11/04/22 History oxyCODONE-APAP 10-325MG [Percocet 1 tab PO QID PRN 11/04/22 11/04/22 History 10-325 mg] Allergies Allergy/AdvReac Type Severity Reaction Status Date / Time Penicillins Allergy Unknown Verified 11/04/22 19:10 Childhood Tetanus Vaccines and Toxoid Allergy Unknown Verified 11/04/22 19:10 Childhood metformin AdvReac Nausea & Verified 11/04/22 19:10 Vomiting Physical Exam Vitals: Vital Signs Temp Pulse Pulse Resp BP BP Pulse Ox 11/05/22 08:14 58 L 11/05/22 07:56 98.0 F 59 L 16 104/56 98 11/05/22 04:19 98.4 F 67 18 118/59 98 11/04/22 23:00 69 11/04/22 22:00 98.2 F 67 18 97/56 100 11/04/22 21:06 54 L 18 93/52 99 11/04/22 18:36 97.5 F L 61 20 101/55 98 11/04/22 17:50 62 20 97/51 99 11/04/22 15:40 99.8 F H 18 11/04/22 15:02 91 18 95/51 97 11/04/22 13:47 102.2 F H 80 20 118/63 96 Intake and Output 11/04/22 11/05/22 11/05/22 22:59 06:59 14:59 Intake Total 63.833 79.367 118 Output Total 200 100 Balance 63.833 -120.633 18 Intake: Intake, IV Titration 63.833 79.367 Amount Heparin Sod,Pork in 0.45% 63.833 79.367 NaCl 25,000 unit In 0.45 % NaCl 1 250ml.bag @ 10. 498 UNITS/KG/HR 10 mls/hr IV .Q24H RICKIE Rx#: [id number] Oral 118 Output: Urine 200 100 Other: Voiding Method Urinal Urinal # Voids 1 Weight 95.254 kg - Constitutional General appearance: obese - EENT Eyes: anicteric sclerae, EOMI ENT: hearing grossly normal - Respiratory Respiratory: bilateral: CTA - Cardiovascular Rhythm: regular Heart sounds: normal: S1, S2 Abnormal Heart Sounds: no systolic murmur, no diastolic murmur, no rub, no S3 Gallop, no S4 Gallop, no click, no other - Gastrointestinal General gastrointestinal: soft, no tenderness - Integumentary large wound on plantar aspect of right foot with drainage noted Integumentary: no cyanotic - Neurologic decreased sensation to bilateral feet - Musculoskeletal Musculoskeletal: strength equal bilaterally - Psychiatric Psychiatric: A&O x's 3, appropriate affect, intact judgment & insight Results CBC & Chem 7: 11/05/22 04:36 11/05/22 04:36 Labs: Abnormal Lab Results - Last 24 Hours (Table) 11/04/22 11/04/22 11/04/22 Range/Units 14:04 14:20 14:20 RBC 3.18 L (4.30-5.90) m/uL Hgb 9.9 L (13.0-17.5) gm/dL Hct 29.0 L (39.0-53.0) % Plt Count (150-450) k/uL Neutrophils # 8.7 H (1.3-7.7) k/uL Lymphocytes # 0.2 L (1.0-4.8) k/uL APTT (22.0-30.0) sec Sodium 128 L (137-145) mmol/L Carbon Dioxide 20 L (22-30) mmol/L Glucose 351 H (74-99) mg/dL POC Glucose (mg/dL) 387 H (70-110) mg/dL Hemoglobin A1c (<=6.0) % Plasma Lactic Acid Kody (0.7-2.0) mmol/L Calcium 7.8 L (8.4-10.2) mg/dL Troponin I (0.000-0.034) ng/mL Total Protein (6.3-8.2) g/dL Albumin 3.4 L (3.5-5.0) g/dL Procalcitonin (0.02-0.09) ng/mL Urine Protein (Negative) Urine Glucose (UA) (Negative) Urine Blood (Negative) Ur Leukocyte Esterase (Negative) Urine WBC (0-5) /hpf Urine Mucus (None) /hpf 11/04/22 11/04/22 11/04/22 Range/Units 14:20 14:20 14:20 RBC (4.30-5.90) m/uL Hgb (13.0-17.5) gm/dL Hct (39.0-53.0) % Plt Count (150-450) k/uL Neutrophils # (1.3-7.7) k/uL Lymphocytes # (1.0-4.8) k/uL APTT (22.0-30.0) sec Sodium (137-145) mmol/L Carbon Dioxide (22-30) mmol/L Glucose (74-99) mg/dL POC Glucose (mg/dL) (70-110) mg/dL Hemoglobin A1c (<=6.0) % Plasma Lactic Acid Kody 2.3 H* (0.7-2.0) mmol/L Calcium (8.4-10.2) mg/dL Troponin I 6.170 H* (0.000-0.034) ng/mL Total Protein (6.3-8.2) g/dL Albumin (3.5-5.0) g/dL Procalcitonin 1.64 H (0.02-0.09) ng/mL Urine Protein (Negative) Urine Glucose (UA) (Negative) Urine Blood (Negative) Ur Leukocyte Esterase (Negative) Urine WBC (0-5) /hpf Urine Mucus (None) /hpf 0711/04/22 11/04/22 Range/Units 14:24 17:24 17:56 RBC (4.30-5.90) m/uL Hgb (13.0-17.5) gm/dL Hct (39.0-53.0) % Plt Count (150-450) k/uL Neutrophils # (1.3-7.7) k/uL Lymphocytes # (1.0-4.8) k/uL APTT (22.0-30.0) sec Sodium (137-145) mmol/L Carbon Dioxide (22-30) mmol/L Glucose (74-99) mg/dL POC Glucose (mg/dL) 419 H (70-110) mg/dL Hemoglobin A1c (<=6.0) % Plasma Lactic Acid Kody (0.7-2.0) mmol/L Calcium (8.4-10.2) mg/dL Troponin I 5.280 H* (0.000-0.034) ng/mL Total Protein (6.3-8.2) g/dL Albumin (3.5-5.0) g/dL Procalcitonin (0.02-0.09) ng/mL Urine Protein 1+ H (Negative) Urine Glucose (UA) 4+ H (Negative) Urine Blood Trace H (Negative) Ur Leukocyte Esterase Moderate H (Negative) Urine WBC 28 H (0-5) /hpf Urine Mucus Rare H (None) /hpf 11/04/22 11/04/22 11/04/22 Range/Units 17:56 19:29 21:30 RBC (4.30-5.90) m/uL Hgb (13.0-17.5) gm/dL Hct (39.0-53.0) % Plt Count (150-450) k/uL Neutrophils # (1.3-7.7) k/uL Lymphocytes # (1.0-4.8) k/uL APTT 37.0 H (22.0-30.0) sec Sodium (137-145) mmol/L Carbon Dioxide (22-30) mmol/L Glucose (74-99) mg/dL POC Glucose (mg/dL) 266 H (70-110) mg/dL Hemoglobin A1c 7.8 H (<=6.0) % Plasma Lactic Acid Kody (0.7-2.0) mmol/L Calcium (8.4-10.2) mg/dL Troponin I (0.000-0.034) ng/mL Total Protein (6.3-8.2) g/dL Albumin (3.5-5.0) g/dL Procalcitonin (0.02-0.09) ng/mL Urine Protein (Negative) Urine Glucose (UA) (Negative) Urine Blood (Negative) Ur Leukocyte Esterase (Negative) Urine WBC (0-5) /hpf Urine Mucus (None) /hpf 11/04/22 11/04/22 11/05/22 Range/Units 21:30 23:10 04:36 RBC 2.89 L (4.30-5.90) m/uL Hgb 9.1 L (13.0-17.5) gm/dL Hct 26.5 L (39.0-53.0) % Plt Count 138 L (150-450) k/uL Neutrophils # (1.3-7.7) k/uL Lymphocytes # 0.4 L (1.0-4.8) k/uL APTT (22.0-30.0) sec Sodium (137-145) mmol/L Carbon Dioxide (22-30) mmol/L Glucose (74-99) mg/dL POC Glucose (mg/dL) 164 H (70-110) mg/dL Hemoglobin A1c (<=6.0) % Plasma Lactic Acid Kody (0.7-2.0) mmol/L Calcium (8.4-10.2) mg/dL Troponin I 3.920 H* (0.000-0.034) ng/mL Total Protein (6.3-8.2) g/dL Albumin (3.5-5.0) g/dL Procalcitonin (0.02-0.09) ng/mL Urine Protein (Negative) Urine Glucose (UA) (Negative) Urine Blood (Negative) Ur Leukocyte Esterase (Negative) Urine WBC (0-5) /hpf Urine Mucus (None) /hpf 11/05/22 11/05/22 11/05/22 Range/Units 04:36 04:36 06:15 RBC (4.30-5.90) m/uL Hgb (13.0-17.5) gm/dL Hct (39.0-53.0) % Plt Count (150-450) k/uL Neutrophils # (1.3-7.7) k/uL Lymphocytes # (1.0-4.8) k/uL APTT 43.5 H (22.0-30.0) sec Sodium 132 L (137-145) mmol/L Carbon Dioxide (22-30) mmol/L Glucose 239 H (74-99) mg/dL POC Glucose (mg/dL) 239 H (70-110) mg/dL Hemoglobin A1c (<=6.0) % Plasma Lactic Acid Kody (0.7-2.0) mmol/L Calcium 7.7 L (8.4-10.2) mg/dL Troponin I (0.000-0.034) ng/mL Total Protein 6.0 L (6.3-8.2) g/dL Albumin 2.9 L (3.5-5.0) g/dL Procalcitonin (0.02-0.09) ng/mL Urine Protein (Negative) Urine Glucose (UA) (Negative) Urine Blood (Negative) Ur Leukocyte Esterase (Negative) Urine WBC (0-5) /hpf Urine Mucus (None) /hpf Comments: foot x-ray reviewed Chest x-ray: report reviewed Assessment and Plan (1) Malignant neoplasm of prostate Current Visit: Yes Status: Acute Priority: Medium Code(s): C61 - MALIGNANT NEOPLASM OF PROSTATE SNOMED Code(s): 941688965 (2) Diabetic foot ulcer Current Visit: Yes Status: Acute Priority: High Code(s): E11.621 - TYPE 2 DIABETES MELLITUS WITH FOOT ULCER; L97.509 - NON-PRESSURE CHRONIC ULCER OTH PRT UNSP FOOT W UNSP SEVERITY SNOMED Code(s): 855813208 (3) Elevated troponin Current Visit: Yes Status: Acute Priority: High Code(s): R77.8 - OTHER SPECIFIED ABNORMALITIES OF PLASMA PROTEINS SNOMED Code(s): 599500484 (4) Anemia Current Visit: Yes Status: Acute Priority: Medium Code(s): D64.9 - ANEMIA, UNSPECIFIED SNOMED Code(s): 139334722 Plan: Prostate cancer -Diagnosed with prostate cancer in August 2019, prostate biopies revealing feliciano 8(4+4) in 5 cores. He underwent EBRT and LHRH agonist treatment for 18 months. PSA was down to 0.2 on 04/2021. On 01/2022, PSA was up to 33.3, and subsequently went back on LHRH agnoist and started xtandi. His CT scan of [address] st/abdomen/plevis on 02/24/2022 revealed retroperitoneal nodes, bone scan on 04/08/2022, revealed evidence of osseous mets involving sternum, ribs and pelvic bones. He had palliative radiation therapy to sternum in June/2022. Due to side effects of Xtandi, patient was switched to Nubeqa, however patient just received medication and has not yet started. He continues with lupron injections with Dr. Camara. He was also started on Xgeva on 10/20/22. -Pt may start Nubeqa. Patient states he will have bring his medication to the hospital Elevated troponins -Trops elevated upon admission. Patient was started on heparin drip. -Cardiology following with plan for echocardiogram. -Defer management to cardiology and IM teams Foot wound: -Foot x-ray showed wound involving the plantar surface with deformity to the midfoot. Findings suspicious for charcot neuroarthropathy. -Started on clindamycin. ID following. -Blood and wound culture pending. WBC stable, 4.6 Anemia: -Normocytic normochromic anemia noted on CBC, hemoglobin 9.1. Upon trending labs anemia was noted during previous admissions dating back to 2019. During clinic follow-up in the last 2 months hemoglobin was in normal range of 12-13. Patient denies any recent rectal bleeding or dark tarry stools. -Anemia workup ordered to r/o any nutritional deficiencies. This could likely be r/t anemia of inflammation. Will await workup for further recommendations -Please transfuse for hemoglobin less than 7 -Will continue to monitor counts attests: I have performed H&P and developed impression and plan of care for patient, discussed with dictator. I agree with dictated note, documented as a scribe
[2022-11-05] MEDS: CEFEPIME 2 GM in SODIUM CHLORIDE 0.9% 100 ML IVPB SCH (17:21)
[2022-11-05 18:57] LABS: HCT 27.5 % (39.0-53.0); HGB 9.2 gm/dL (13.0-17.5); Hypochromasia Slight; MCHC 33.4 g/dL (31.0-37.0); MCV 89.6 fL (80.0-100.0); Mean Platelet Volume 8.5; Platelet Count 163 k/uL (150-450); Poikilocytosis Slight; RBC 3.07 m/uL (4.30-5.90); RDW 14.1 % (11.5-15.5); WBC 4.7 k/uL (3.8-10.6)
[2022-11-05 20:14] LABS: Glucose,Whole Blood 206 mg/dL (70-110)
[2022-11-05 20:41] LABS: % Iron Saturation 11.34 (15.00-50.00)
[2022-11-05] MEDS ORDERED: hydrOXYzine HCL 25 MG TAB PO PRN (21:00)
[2022-11-05] MEDS: glipiZIDE 10 MG TAB PO SCH (21:22)
[2022-11-05] MEDS: TEMAZEPAM 15 MG CAP PO SCH (21:26)
--- NOTE | 2022-11-05 21:32 | HP ---
HISTORY AND PHYSICAL CHIEF COMPLAINT: Pain and swelling and infection of the right foot as well as fever and malaise. HISTORY OF PRESENT ILLNESS: This 67-year-old gentleman with a past medical history of multiple medical problems including CAD, diabetes mellitus was admitted with fever, weakness, pain and swelling of the right foot and features of sepsis present on admission, and the patient was started on IV antibiotics. Charcot neuropathy was also suspected in the chest x-ray. The troponin is found to be elevated up to 3.9. The patient is monitored in telemetry at this time. Cardiology following the patient with plans for medical treatment at this time. PAST MEDICAL HISTORY: Reviewed and include CVA, TIA, chest pain, angina, CAD. Rest of history and rest of chart is also reviewed. HOME MEDICATIONS: Reviewed, include Atarax, dose and rest of medications reviewed. ALLERGIES: Penicillin. Rest of allergies reviewed. FAMILY HISTORY: History of cancer in the family. SOCIAL HISTORY: Continued ongoing smoking. REVIEW OF SYSTEMS: 14-point review is negative except as mentioned. PHYSICAL EXAMINATION: VITAL SIGNS: Pulse is 58, blood pressuren, respirations 16. HEENT: Conjunctivae normal. NECK: No jugular venous distention. CARDIOVASCULAR: S1, S2. RESPIRATORY: Clear to auscultation. ABDOMEN: Soft, obese. LEGS: Right foot abscess, cellulitis, and also some drainage from the dorsum. LABORATORY DATA: Reviewed. X-ray reviewed personally. ASSESSMENT: 1. Right foot diabetic foot ulcer as well as sepsis, present on admission. 2. Troponin 3.9 with acute non-ST segment elevation myocardial infarction. 3. Diabetes mellitus type 2. 4. History of coronary artery disease. 5. Hypertension. 6. Hyperlipidemia. 7. History of myocardial infarction. 8. Multiple complex medical issues. RECOMMENDATION: This 67-year-old gentleman presented with multiple complex medical issues. We will monitor the patient closely. Initiate broad-spectrum IV antibiotics. Recommend cultures. Infectious Disease evaluation. Vascular Surgery consultation. Bone scan. Cardiology has been consulted. We will resume the home medications once they are confirmed. DVT prophylaxis, heparin for now. Overall prognosis is extremely guarded because of multiple complex medical conditions. Discussed with the patient who understands. MMODL / IJN: [id number] / MTDD
--- NOTE | 2022-11-05 22:05 | P.CONS ---
History of Present Illness - Reason for Consult Consult date: 11/05/22 - History of Present Illness Patient is a 67-year old male with a past medical history significant for diabetes mellitus the patient did have right Charcot deformity history of prostate cancer coronary disease presenting to the hospital for evaluation of feeling weak symptom has been going on for about a week patient did have some chills denies any high-grade fever no headache or URI symptoms did have mild Flexion. Denies any nausea vomiting no abdominal pain or diarrhea patient did have a wound on the plantar aspect of the right foot and has been draining some fluid and the patient noticed to have some foul-smelling associated with it with the symptoms the patient presented to the hospital, patient however denies pain to the right foot because of his underlying neuropathy, patient did mention he did have a chronic vomiting to the right foot and has developed a callus on the plantar aspect the seem to have opened up and draining some foul-smelling fluid patient presentation to the hospital did have a fever of 102.2 F patient was not tachycardic or hypotensive and not hypoxic or need for supplemental oxygen patient did have a normal white count, kidney function has been normal enzymes are normal did have elevated troponin urine was mildly positive influenza RSV and COVID testing was negative patient did have a chest x-ray no acute process correlate for COPD patient did have a foot x-ray wound involving the plantar surface with deformity to the midfoot patient did have a penicillin allergy was started on clindamycin admitted to hospital infectious disease was consulted for further management of antibiotic therapy Past Medical History Past Medical History: Coronary Artery Disease (CAD), Cancer, Chest Pain / Angina, CVA/TIA, Diabetes Mellitus, GI Bleed, Hyperlipidemia, Hypertension, Myocardial Infarction ([place]), Prostate Disorder, Renal Disease, Sleep Apnea/CPAP/BIPAP Additional Past Medical History / Comment(s): CATRACHITO 2014 , C-DIFF 2012., HX DIVERTICULOSIS, NEUROPATHY IN HANDS & FEET., LEFT KIDNEY CANCER WITH NEPHRECTOMY URETER & PART OF BLADDER & LYMPH NODES REMOVED., HAS CYST RIGHT KIDNEY, STAGE 3 KIDNEY DISEASE., HX OF SLEEP APNEA (SURGERY)., NON-HODGKINS LYMPHOMA -LAST PET SCAN NEGATIVE., STATES NO RESIDUAL EFFECT FROM HX CVA/TIA., 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 , CIRCUMCISION cataracts., PIECE OF METAL REMOVED FROM ABD (WAR WOUND) - DEVELOPED SCAR TISSUE & PART OF LARGE INTESTINE REMOVED., ABD HERNIA REPAIR. SX FOR SLEEP APNEA. COLONOSCOPY/POLYPECTOMY., SUDHEER ILIAC VEIN STENTING.,, STATES TOTAL OF 4 CARDIAC STENTS, HEART CATH 12/2018. Past Anesthesia/Blood Transfusion Reactions: No Reported Reaction Date of Last Stent Placement:: 01/2014 Past Psychological History: No Psychological Hx Reported Additional Psychological History / Comment(s): . Smoking Status: Current every day smoker Past Alcohol Use History: Occasional Additional Past Alcohol Use History / Comment(s): QUIT SMOKING (MAR 2019). and restarted in 2019, STARTED SMOKING AT AGE 12, SMOKED LESS THAN 1/2 PPD. Past Drug Use History: None Reported - Past Family History Mother Additional Family Medical History / Comment(s): from complications from broken hip. Father Family Medical History: Cancer Sister(s) Family Medical History: Diabetes Mellitus, Deep Vein Thrombosis (DVT) Medications and Allergies Home Medications Medication Instructions Recorded Confirmed Type Clopidogrel Bisulfate [Clopidogrel] 75 mg PO DAILY 02/04/14 11/04/22 History Fluticasone Nasal [place] [Flonase 1 spr EA NOSTRIL DAILY 04/29/19 11/04/22 History Nasal [place]] glipiZIDE [Glucotrol] 10 mg PO BID 04/29/19 11/04/22 History amLODIPine BESYLATE [Norvasc] 2.5 mg PO DAILY 12/14/19 11/04/22 History Eszopiclone [Lunesta] 2 mg PO HS 11/04/22 11/04/22 History Gabapentin 600 mg PO TID 11/04/22 11/04/22 History hydrOXYzine HCL [Atarax] 50 mg PO HS PRN 11/04/22 11/04/22 History oxyCODONE-APAP 10-325MG [Percocet 1 tab PO QID PRN 11/04/22 11/04/22 History 10-325 mg] Allergies Allergy/AdvReac Type Severity Reaction Status Date / Time Penicillins Allergy Unknown Verified 11/04/22 19:10 Childhood Tetanus Vaccines and Toxoid Allergy Unknown Verified 11/04/22 19:10 Childhood metformin AdvReac Nausea & Verified 11/04/22 19:10 Vomiting Physical Exam Vitals: Vital Signs Temp Pulse Pulse Resp BP BP Pulse Ox 11/05/22 11:41 51 L 17 109/61 95 11/05/22 08:14 58 L 11/05/22 07:56 98.0 F 59 L 16 104/56 98 11/05/22 04:19 98.4 F 67 18 118/59 98 11/04/22 23:00 69 11/04/22 22:00 98.2 F 67 18 97/56 100 11/04/22 21:06 54 L 18 93/52 99 11/04/22 18:36 97.5 F L 61 20 101/55 98 11/04/22 17:50 62 20 97/51 99 11/04/22 15:40 99.8 F H 18 11/04/22 15:02 91 18 95/51 97 11/04/22 13:47 102.2 F H 80 20 118/63 96 Intake and Output 11/04/22 11/05/22 11/05/22 22:59 06:59 14:59 Intake Total 63.833 79.367 118 Output Total 200 200 Balance 63.833 -120.633 -82 Intake: Intake, IV Titration 63.833 79.367 Amount Heparin Sod,Pork in 0.45% 63.833 79.367 NaCl 25,000 unit In 0.45 % NaCl 1 250ml.bag @ 10. 498 UNITS/KG/HR 10 mls/hr IV .Q24H [facility] Rx#: [id number] Oral 118 Output: Urine 200 200 Other: Voiding Method Urinal Urinal # Voids 1 Weight 95.254 kg Results CBC & Chem 7: 11/05/22 18:23 11/05/22 04:36 Labs: Abnormal Lab Results - Last 24 Hours (Table) 11/04/22 11/04/22 11/04/22 Range/Units 14:04 14:20 14:20 RBC 3.18 L (4.30-5.90) m/uL Hgb 9.9 L (13.0-17.5) gm/dL Hct 29.0 L (39.0-53.0) % Plt Count (150-450) k/uL Neutrophils # 8.7 H (1.3-7.7) k/uL Lymphocytes # 0.2 L (1.0-4.8) k/uL APTT (22.0-30.0) sec Sodium 128 L (137-145) mmol/L Carbon Dioxide 20 L (22-30) mmol/L Glucose 351 H (74-99) mg/dL POC Glucose (mg/dL) 387 H (70-110) mg/dL Hemoglobin A1c (<=6.0) % Plasma Lactic Acid Kody (0.7-2.0) mmol/L Calcium 7.8 L (8.4-10.2) mg/dL Troponin I (0.000-0.034) ng/mL Total Protein (6.3-8.2) g/dL Albumin 3.4 L (3.5-5.0) g/dL Procalcitonin (0.02-0.09) ng/mL Urine Protein (Negative) Urine Glucose (UA) (Negative) Urine Blood (Negative) Ur Leukocyte Esterase (Negative) Urine WBC (0-5) /hpf Urine Mucus (None) /hpf 11/04/22 11/04/22 11/04/22 Range/Units 14:20 14:20 14:20 RBC (4.30-5.90) m/uL Hgb (13.0-17.5) gm/dL Hct (39.0-53.0) % Plt Count (150-450) k/uL Neutrophils # (1.3-7.7) k/uL Lymphocytes # (1.0-4.8) k/uL APTT (22.0-30.0) sec Sodium (137-145) mmol/L Carbon Dioxide (22-30) mmol/L Glucose (74-99) mg/dL POC Glucose (mg/dL) (70-110) mg/dL Hemoglobin A1c (<=6.0) % Plasma Lactic Acid Kody 2.3 H* (0.7-2.0) mmol/L Calcium (8.4-10.2) mg/dL Troponin I 6.170 H* (0.000-0.034) ng/mL Total Protein (6.3-8.2) g/dL Albumin (3.5-5.0) g/dL Procalcitonin 1.64 H (0.02-0.09) ng/mL Urine Protein (Negative) Urine Glucose (UA) (Negative) Urine Blood (Negative) Ur Leukocyte Esterase (Negative) Urine WBC (0-5) /hpf Urine Mucus (None) /hpf 11/04/22 11/04/22 11/04/22 Range/Units 14:24 17:24 17:56 RBC (4.30-5.90) m/uL Hgb (13.0-17.5) gm/dL Hct (39.0-53.0) % Plt Count (150-450) k/uL Neutrophils # (1.3-7.7) k/uL Lymphocytes # (1.0-4.8) k/uL APTT (22.0-30.0) sec Sodium (137-145) mmol/L Carbon Dioxide (22-30) mmol/L Glucose (74-99) mg/dL POC Glucose (mg/dL) 419 H (70-110) mg/dL Hemoglobin A1c (<=6.0) % Plasma Lactic Acid Kody (0.7-2.0) mmol/L Calcium (8.4-10.2) mg/dL Troponin I 5.280 H* (0.000-0.034) ng/mL Total Protein (6.3-8.2) g/dL Albumin (3.5-5.0) g/dL Procalcitonin (0.02-0.09) ng/mL Urine Protein 1+ H (Negative) Urine Glucose (UA) 4+ H (Negative) Urine Blood Trace H (Negative) Ur Leukocyte Esterase Moderate H (Negative) Urine WBC 28 H (0-5) /hpf Urine Mucus Rare H (None) /hpf 11/04/22 11/04/22 11/04/22 Range/Units 17:56 19:29 21:30 RBC (4.30-5.90) m/uL Hgb (13.0-17.5) gm/dL Hct (39.0-53.0) % Plt Count (150-450) k/uL Neutrophils # (1.3-7.7) k/uL Lymphocytes # (1.0-4.8) k/uL APTT 37.0 H (22.0-30.0) sec Sodium (137-145) mmol/L Carbon Dioxide (22-30) mmol/L Glucose (74-99) mg/dL POC Glucose (mg/dL) 266 H (70-110) mg/dL Hemoglobin A1c 7.8 H (<=6.0) % Plasma Lactic Acid Kody (0.7-2.0) mmol/L Calcium (8.4-10.2) mg/dL Troponin I (0.000-0.034) ng/mL Total Protein (6.3-8.2) g/dL Albumin (3.5-5.0) g/dL Procalcitonin (0.02-0.09) ng/mL Urine Protein (Negative) Urine Glucose (UA) (Negative) Urine Blood (Negative) Ur Leukocyte Esterase (Negative) Urine WBC (0-5) /hpf Urine Mucus (None) /hpf 11/04/22 11/04/22 11/05/22 Range/Units 21:30 23:10 04:36 RBC 2.89 L (4.30-5.90) m/uL Hgb 9.1 L (13.0-17.5) gm/dL Hct 26.5 L (39.0-53.0) % Plt Count 138 L (150-450) k/uL Neutrophils # (1.3-7.7) k/uL Lymphocytes # 0.4 L (1.0-4.8) k/uL APTT (22.0-30.0) sec Sodium (137-145) mmol/L Carbon Dioxide (22-30) mmol/L Glucose (74-99) mg/dL POC Glucose (mg/dL) 164 H (70-110) mg/dL Hemoglobin A1c (<=6.0) % Plasma Lactic Acid Kody (0.7-2.0) mmol/L Calcium (8.4-10.2) mg/dL Troponin I 3.920 H* (0.000-0.034) ng/mL Total Protein (6.3-8.2) g/dL Albumin (3.5-5.0) g/dL Procalcitonin (0.02-0.09) ng/mL Urine Protein (Negative) Urine Glucose (UA) (Negative) Urine Blood (Negative) Ur Leukocyte Esterase (Negative) Urine WBC (0-5) /hpf Urine Mucus (None) /hpf 11/05/22 11/05/22 11/05/22 Range/Units 04:36 04:36 06:15 RBC (4.30-5.90) m/uL Hgb (13.0-17.5) gm/dL Hct (39.0-53.0) % Plt Count (150-450) k/uL Neutrophils # (1.3-7.7) k/uL Lymphocytes # (1.0-4.8) k/uL APTT 43.5 H (22.0-30.0) sec Sodium 132 L (137-145) mmol/L Carbon Dioxide (22-30) mmol/L Glucose 239 H (74-99) mg/dL POC Glucose (mg/dL) 239 H (70-110) mg/dL Hemoglobin A1c (<=6.0) % Plasma Lactic Acid Kody (0.7-2.0) mmol/L Calcium 7.7 L (8.4-10.2) mg/dL Troponin I (0.000-0.034) ng/mL Total Protein 6.0 L (6.3-8.2) g/dL Albumin 2.9 L (3.5-5.0) g/dL Procalcitonin (0.02-0.09) ng/mL Urine Protein (Negative) Urine Glucose (UA) (Negative) Urine Blood (Negative) Ur Leukocyte Esterase (Negative) Urine WBC (0-5) /hpf Urine Mucus (None) /hpf 11/05/22 Range/Units 11:26 RBC (4.30-5.90) m/uL Hgb (13.0-17.5) gm/dL Hct (39.0-53.0) % Plt Count (150-450) k/uL Neutrophils # (1.3-7.7) k/uL Lymphocytes # (1.0-4.8) k/uL APTT (22.0-30.0) sec Sodium (137-145) mmol/L Carbon Dioxide (22-30) mmol/L Glucose (74-99) mg/dL POC Glucose (mg/dL) 258 H (70-110) mg/dL Hemoglobin A1c (<=6.0) % Plasma Lactic Acid Kody (0.7-2.0) mmol/L Calcium (8.4-10.2) mg/dL Troponin I (0.000-0.034) ng/mL Total Protein (6.3-8.2) g/dL Albumin (3.5-5.0) g/dL Procalcitonin (0.02-0.09) ng/mL Urine Protein (Negative) Urine Glucose (UA) (Negative) Urine Blood (Negative) Ur Leukocyte Esterase (Negative) Urine WBC (0-5) /hpf Urine Mucus (None) /hpf Assessment and Plan Plan: 1patient presented hospital with right diabetic foot infection in this patient who did have a evidence of Charcot deformity to the right foot he did have a callus on the plantar aspect and a wound that was draining purulent material with foul-smelling we will need to cover for the polymicrobial natalie usually associated with a diabetic foot infection and need to rule out deep abscess and underlying osteomyelitis. 2patient with a penicillin allergy that would limit the number of antibiotics safe to use 3discontinue clindamycin 4we will obtain CT of the right foot to make sure no evidence of any abscess that would need to be drained and bony abnormality suggestive of osteomyelitis 5-check inflammatory markers 6 we will start the patient on combination of vancomycin cefepime and Flagyl while waiting for the work-up to be completed We will follow on clinical condition and cultures to further adjust medication if needed Thank you for this consultation we will follow the patient along with you- Time with Patient: Greater than 30
[2022-11-06] MEDS: CEFEPIME 2 GM in SODIUM CHLORIDE 0.9% 100 ML IVPB SCH ×3 (00:03→21:05)
[2022-11-06] MEDS: VANCOMYCIN 1,500 MG in SODIUM CHLORIDE 0.9% 500 ML 500 ML IVPB SCH ×2 (00:03→12:11)
[2022-11-06] MEDS: NUBEQA PO SCH ×3 (00:11→21:08)
[2022-11-06 06:24] LABS: Glucose,Whole Blood 111 mg/dL (70-110)
[2022-11-06] MEDS: INSULIN ASPART (NovoLOG) 100 UNIT/ML VIAL SQ SCH ×4 (06:25→20:51)
[2022-11-06 08:03] LABS: Basophils % (A) 1 %; Eosinophils # (A) 0.1 k/uL (0-0.7); Eosinophils % (A) 2 %; HCT 28.3 % (39.0-53.0); HGB 9.4 gm/dL (13.0-17.5); Hypochromasia Slight; Lymphocytes # (A) 0.4 k/uL (1.0-4.8); Lymphocytes % (A) 10 %; MCH 30.1 pg (25.0-35.0); MCHC 33.4 g/dL (31.0-37.0); MCV 90.3 fL (80.0-100.0); Mean Platelet Volume 8.2; Monocytes # (A) 0.2 k/uL (0-1.0); Monocytes % (A) 6 %; Neutrophils # (A) 3.5 k/uL (1.3-7.7); Neutrophils % (A) 79 %; Platelet Count 153 k/uL (150-450); Poikilocytosis Slight; RBC 3.13 m/uL (4.30-5.90); RDW 13.8 % (11.5-15.5); WBC 4.4 k/uL (3.8-10.6)
[2022-11-06 08:47] LABS: African American GFR (CKD) >90 (>60 ml/min/1.73 sqM); Anion Gap 6 mmol/L; Blood Urea Nitrogen 14 mg/dL (9-20); Calcium 7.6 mg/dL (8.4-10.2); Carbon Dioxide 25 mmol/L (22-30); Chloride 105 mmol/L (98-107); Glucose 104 mg/dL (74-99); Non-African American GFR(CKD) 85 (>60 ml/min/1.73 sqM); Potassium 4.4 mmol/L (3.5-5.1); Sodium 136 mmol/L (137-145)
[2022-11-06] MEDS: glipiZIDE 10 MG TAB PO SCH ×2 (09:06→21:06)
[2022-11-06] MEDS: PANTOPRAZOLE 40 MG/10 ML VIAL IV SCH (09:14)
[2022-11-06] MEDS: METOPROLOL TARTRATE 25 MG TAB PO SCH ×2 (09:15→21:06)
[2022-11-06] MEDS: metroNIDAZOLE 500 MG TAB PO SCH ×3 (09:15→21:09)
[2022-11-06] MEDS: GABAPENTIN 300 MG CAP PO SCH ×3 (09:15→21:08)
[2022-11-06] MEDS: FLUTICASONE 50MCG/SPRAY NASAL 16GM EA NOSTRIL SCH (09:15)
[2022-11-06] MEDS: ASPIRIN 81 MG PO SCH (09:16)
[2022-11-06] MEDS: HYDROmorphone 1 MG/ML 1 ML SYRINGE IVP PRN ×3 (09:46→20:00)
[2022-11-06 12:02] LABS: Glucose,Whole Blood 129 mg/dL (70-110)
[2022-11-06] MEDS: oxyCODONE-APAP 10-325MG 1 EACH TAB PO PRN (12:11)
--- NOTE | 2022-11-06 12:23 | P.PN ---
Subjective HISTORY OF PRESENT ILLNESS: The patient is a 67-year-old male with known history of CAD, status post CABG in April 2019, he received a CMRAE to the LAD, left radial to the first OM, SVG to the second OM and SVG to the RCA, he has a known history of May Thurner syndrome status post stenting of bilateral iliac vein, history of diabetes, hypertension, hyperlipidemia and chronic tobacco use and a prior history of stroke who presents with symptoms of not feeling well but without any symptoms of chest discomfort, dyspnea or dizziness. He has stage IV prostate cancer, received radiation therapy and is receiving hormonal therapy, followed by Dr. Moran. He is limited in his physical activity he has Charcot tooth worked on the right side, he had an ulcer on the right plantar aspect. He has peripheral edema for the last few months, no clear PND or orthopnea. He denies any dizziness or palpitations or syncope. He has no history of malignant arrhythmia. In the emergency room he was noted to have a troponin of 6. In the past and he had ischemic events he had associated chest discomfort. He has mild cough but no change in his breathing. He had no fever at home. His echocardiogram in 2018 showed an ejection fraction of 50-55%. His EKG today showed no acute ST segment changes. His corneas factors are positive for hypertension, hyperlipidemia, diabetes and chronic tobacco use. He had Covid infection recently but is negative at this point Medications: Glucotrol, Norvasc 2.5 mg daily, Plavix, Lipitor 40 mg daily, aspirin, Jardiance, Neurontin, trazodone, Trulicity November 05: The patient feels better today, he denies any chest discomfort, dizziness or palpitations. His troponin is trending down. He denies any nausea or vomiting. He has no cough or fever. He continues to be in sinus mechanism. He had the foot x-ray that showed evidence consistent with Charcot neuroarthropathy. His echocardiogram is pending 11/06/2022 Patient examined this morning at the bedside. Patient currently denies chest pain or pressure. Patient denies shortness of breath. He states that he feels tired and had a rough night. Patient was evaluated by vascular surgery and is scheduled for right foot debridement tomorrow PHYSICAL EXAM: VITAL SIGNS: Reviewed. GENERAL: Well-developed in no acute distress. NECK: Supple. No JVD or thyromegaly LUNGS: Respirations even and unlabored. Lungs essentially clear to auscultation bilaterally. HEART: Regular rate and rhythm. S1 and S2 heard. EXTREMITIES: Normal range of motion. No clubbing or cyanosis. Peripheral pulses intact. No lower extremity edema ASSESSMENT: Non-STEMI Right foot infection Charcot joint of the right foot Stage IV prostate cancer Coronary artery disease with previous CABG Diabetes PLAN: 2-D echo pending. Await results Await further input from oncology regarding prognosis of patients cancer Patient is not a candidate for aggressive cardiac workup at this time due to acute issues Patient scheduled for right foot debridement tomorrow with vascular surgery Further recommendations pending patient course Nurse practitioner note has been reviewed by physician. Signing provider agrees with the documented findings, assessment, and plan of care. Objective - Vital Signs Vital signs: Vital Signs Temp 97.8 F 11/06/22 08:00 Pulse 52 L 11/06/22 08:00 Resp 18 11/06/22 08:00 BP 132/74 11/06/22 08:00 Pulse Ox 99 11/06/22 08:00 FiO2 Intake & Output 11/05/22 11/06/22 11/06/22 18:59 06:59 18:59 Intake Total 342.8 Output Total 1550 0 200 Balance -1207.2 0 -200 Weight 96 kg Intake: Intake, IV Titration 106.8 Amount Heparin Sod,Pork in 0.45% 106.8 NaCl 25,000 unit In 0.45 % NaCl 1 250ml.bag @ 10. 498 UNITS/KG/HR 10 mls/hr IV .Q24H [facility] Rx#: [id number] Oral 236 Output: Urine 1550 0 200 Other: Voiding Method External Catheter External Catheter External Catheter # Voids 1 - Labs CBC & Chem 7: 11/06/22 07:21 11/06/22 07:21 Labs: Abnormal Lab Results - Last 24 Hours (Table) 11/05/22 11/05/22 11/05/22 Range/Units 11:31 11:31 16:11 RBC (4.30-5.90) m/uL Hgb (13.0-17.5) gm/dL Hct (39.0-53.0) % Lymphocytes # (1.0-4.8) k/uL Sodium (137-145) mmol/L Glucose (74-99) mg/dL POC Glucose (mg/dL) 223 H (70-110) mg/dL Calcium (8.4-10.2) mg/dL Iron 27 L (65-175) UG/DL % Saturation 11.34 L (15.00-50.00) Transferrin 170.0 L (204.0-354.0) mg/dL Ferritin 763.0 H (22.0-322.0) ng/mL Creatine Kinase 172 H (55-170) U/L Vitamin B12 983.0 H (200.0-944.0) pg/mL 11/05/22 11/05/22 11/06/22 Range/Units 18:23 20:12 06:23 RBC 3.07 L (4.30-5.90) m/uL Hgb 9.2 L (13.0-17.5) gm/dL Hct 27.5 L (39.0-53.0) % Lymphocytes # (1.0-4.8) k/uL Sodium (137-145) mmol/L Glucose (74-99) mg/dL POC Glucose (mg/dL) 206 H 111 H (70-110) mg/dL Calcium (8.4-10.2) mg/dL Iron (65-175) UG/DL % Saturation (15.00-50.00) Transferrin (204.0-354.0) mg/dL Ferritin (22.0-322.0) ng/mL Creatine Kinase (55-170) U/L Vitamin B12 (200.0-944.0) pg/mL 11/06/22 11/06/22 11/06/22 Range/Units 07:21 07:21 12:00 RBC 3.13 L (4.30-5.90) m/uL Hgb 9.4 L (13.0-17.5) gm/dL Hct 28.3 L (39.0-53.0) % Lymphocytes # 0.4 L (1.0-4.8) k/uL Sodium 136 L (137-145) mmol/L Glucose 104 H (74-99) mg/dL POC Glucose (mg/dL) 129 H (70-110) mg/dL Calcium 7.6 L (8.4-10.2) mg/dL Iron (65-175) UG/DL % Saturation (15.00-50.00) Transferrin (204.0-354.0) mg/dL Ferritin (22.0-322.0) ng/mL Creatine Kinase (55-170) U/L Vitamin B12 (200.0-944.0) pg/mL Microbiology - Last 24 Hours (Table) 11/05/22 13:50 Gram Stain - Preliminary Foot - Right 11/04/22 16:15 Blood Culture - Preliminary Blood 11/04/22 16:00 Blood Culture - Preliminary Blood 11/04/22 17:24 Urine Culture - Final Urine,Voided
--- NOTE | 2022-11-06 16:02 | P.PN ---
Subjective Progress Note Date: 11/06/22 Principal diagnosis: foot ulcer, hx prostate cancer At today's visit patient is resting comfortably in bed. Patient reports he is feeling well. He continues on IV antibiotics. Patient started Nubeqa last night. No other reported complaints at this time Objective - Vital Signs Vital signs: Vital Signs Temp 97.8 F 11/06/22 08:00 Pulse 55 L 11/06/22 14:00 Resp 18 11/06/22 14:00 BP 126/59 11/06/22 12:00 Pulse Ox 99 11/06/22 12:00 FiO2 Intake & Output 11/05/22 11/06/22 11/06/22 18:59 06:59 18:59 Intake Total 342.8 Output Total 1550 0 200 Balance -1207.2 0 -200 Weight 96 kg Intake: Intake, IV Titration 106.8 Amount Heparin Sod,Pork in 0.45% 106.8 NaCl 25,000 unit In 0.45 % NaCl 1 250ml.bag @ 10. 498 UNITS/KG/HR 10 mls/hr IV .Q24H [facility] Rx#: [id number] Oral 236 Output: Urine 1550 0 200 Other: Voiding Method External Catheter External Catheter External Catheter # Voids 1 - Constitutional General appearance: Present: average body habitus, no acute distress - EENT Eyes: Present: anicteric sclerae, EOMI ENT: Present: hearing grossly normal - Respiratory Details: breathing is even and unlabored - Cardiovascular Details: skin is warm and dry - Integumentary Integumentary Comment(s): diabetic ulceration to right foot, plantar aspect - Musculoskeletal Musculoskeletal: Present: strength equal bilaterally - Psychiatric Psychiatric: Present: A&O x's 3, appropriate affect, intact judgment & insight - Labs CBC & Chem 7: 11/06/22 07:21 11/06/22 07:21 Labs: Abnormal Lab Results - Last 24 Hours (Table) 11/05/22 11/05/22 11/05/22 Range/Units 11:31 16:11 18:23 RBC 3.07 L (4.30-5.90) m/uL Hgb 9.2 L (13.0-17.5) gm/dL Hct 27.5 L (39.0-53.0) % Lymphocytes # (1.0-4.8) k/uL Sodium (137-145) mmol/L Glucose (74-99) mg/dL POC Glucose (mg/dL) 223 H (70-110) mg/dL Calcium (8.4-10.2) mg/dL Iron 27 L (65-175) UG/DL % Saturation 11.34 L (15.00-50.00) Transferrin 170.0 L (204.0-354.0) mg/dL Ferritin 763.0 H (22.0-322.0) ng/mL Vitamin B12 983.0 H (200.0-944.0) pg/mL 11/05/22 11/06/22 11/06/22 Range/Units 20:12 06:23 07:21 RBC (4.30-5.90) m/uL Hgb (13.0-17.5) gm/dL Hct (39.0-53.0) % Lymphocytes # (1.0-4.8) k/uL Sodium 136 L (137-145) mmol/L Glucose 104 H (74-99) mg/dL POC Glucose (mg/dL) 206 H 111 H (70-110) mg/dL Calcium 7.6 L (8.4-10.2) mg/dL Iron (65-175) UG/DL % Saturation (15.00-50.00) Transferrin (204.0-354.0) mg/dL Ferritin (22.0-322.0) ng/mL Vitamin B12 (200.0-944.0) pg/mL 11/06/22 11/06/22 Range/Units 07:21 12:00 RBC 3.13 L (4.30-5.90) m/uL Hgb 9.4 L (13.0-17.5) gm/dL Hct 28.3 L (39.0-53.0) % Lymphocytes # 0.4 L (1.0-4.8) k/uL Sodium (137-145) mmol/L Glucose (74-99) mg/dL POC Glucose (mg/dL) 129 H (70-110) mg/dL Calcium (8.4-10.2) mg/dL Iron (65-175) UG/DL % Saturation (15.00-50.00) Transferrin (204.0-354.0) mg/dL Ferritin (22.0-322.0) ng/mL Vitamin B12 (200.0-944.0) pg/mL Microbiology - Last 24 Hours (Table) 11/05/22 13:50 Gram Stain - Preliminary Foot - Right 11/04/22 16:15 Blood Culture - Preliminary Blood 11/04/22 16:00 Blood Culture - Preliminary Blood 11/04/22 17:24 Urine Culture - Final Urine,Voided Assessment and Plan (1) Malignant neoplasm of prostate Current Visit: Yes Status: Acute Priority: Medium Code(s): C61 - MALIGNANT NEOPLASM OF PROSTATE SNOMED Code(s): 312343992 (2) Diabetic foot ulcer Current Visit: Yes Status: Acute Priority: High Code(s): E11.621 - TYPE 2 DIABETES MELLITUS WITH FOOT ULCER; L97.509 - NON-PRESSURE CHRONIC ULCER OTH PRT UNSP FOOT W UNSP SEVERITY SNOMED Code(s): 071317843 (3) Elevated troponin Current Visit: Yes Status: Acute Priority: High Code(s): R77.8 - OTHER SPECIFIED ABNORMALITIES OF PLASMA PROTEINS SNOMED Code(s): 244966966 (4) Anemia Current Visit: Yes Status: Acute Priority: Medium Code(s): D64.9 - ANEMIA, UNSPECIFIED SNOMED Code(s): 550235083 Plan: Prostate cancer -Diagnosed with prostate cancer in August 2019, prostate biopies revealing feliciano 8(4+4) in 5 cores. He underwent EBRT and LHRH agonist treatment for 18 months. PSA was down to 0.2 on 04/2021. On 01/2022, PSA was up to 33.3, and subsequently went back on LHRH agnoist and started xtandi. His CT scan of chest/abdomen/plevis on 02/24/2022 revealed retroperitoneal nodes, bone scan on 04/08/2022, revealed evidence of osseous mets involving sternum, ribs and pelvic bones. He had palliative radiation therapy to sternum in June/2022. Due to side effects of Xtandi, patient was switched to Nubeqa, however patient just received medication and has not yet started. He continues with lupron injections with Dr. Camraa. He was also started on Xgeva on 10/20/22. -Pt started Nubeqa yesterday, may continue. Will schedule clinic f/u upon discharge Elevated troponins -Trops elevated upon admission. Patient was started on heparin drip. -Cardiology following with plan for echocardiogram. -Defer management to cardiology and IM teams Foot wound: -Foot x-ray showed wound involving the plantar surface with deformity to the midfoot. Findings suspicious for charcot neuroarthropathy. -Cefepime and vanco. ID following. -Blood culture negative thus far. Wound culture pending. WBC stable, 4.4 Anemia: -Normocytic normochromic anemia noted on CBC, hemoglobin 9.4 today. Upon trending labs anemia was noted during previous admissions dating back to 2019. During clinic follow-up in the last 2 months hemoglobin was in normal range of 12-13. Patient denies any recent rectal bleeding or dark tarry stools. -Anemia workup revealed no nutritional deficiencies. This is likely r/t anemia of inflammation, as this has been seen in previous hospitalizations. Would expect counts to improve as acute condition resolves -Please transfuse for hemoglobin less than 7 -Will continue to monitor counts
[2022-11-06 16:52] LABS: Glucose,Whole Blood 109 mg/dL (70-110)
[2022-11-06] MEDS ORDERED: SODIUM CHLORIDE 0.9% 1,000 ML IV ONE (16:58)
--- NOTE | 2022-11-06 17:10 | CA ---
Transthoracic Echo Report Name: Aba Neff Age: 67 Gender: M : 1955 Exam Date: 11/06/2022 09:38 Exam Location: [facility] Ht (in): 69 Wt (lb): 210 Ordering Physician: Chema Marquis MD ([id number]) Attending/Referring Phys: [employer] Ramy Boland Procedure CPT: Indications: SD Cardiac Hx: Technical Quality: Fair Contrast 1: Total Dose (mL): Contrast 2: Total Dose (mL): MEASUREMENTS (Male / Female) Normal Values 2D ECHO LV Diastolic Diameter PLAX 4.6 cm 4.2 - 5.9 / 3.9 - 5.3 cm LV Systolic Diameter PLAX 2.7 cm IVS Diastolic Thickness 1.2 cm 0.6 - 1.0 / 0.6 - 0.9 cm LVPW Diastolic Thickness 1.3 cm 0.6 - 1.0 / 0.6 - 0.9 cm LV Relative Wall Thickness 0.5 RV Internal Dim ED PLAX 3.4 cm LVOT Diameter 2.4 cm Aortic Root Diameter 3.5 cm LA Systolic Diameter LX 3.0 cm 3.0 - 4.0 / 2.7 - 3.8 cm LV Diastolic Volume MOD BP 67.6 cm??? 67 - 155 / 56 - 104 cm??? LV Systolic Volume MOD BP 23.5 cm??? 22 - 58 / 19 - 49 cm??? LV Ejection Fraction MOD BP 65.2 % >= 55 % LV Diastolic Volume MOD 4C 79.8 cm??? LV Systolic Volume MOD 4C 27.4 cm??? LV Ejection Fraction MOD 4C 65.7 % LV Diastolic Length 4C 7.3 cm LV Systolic Length 4C 6.3 cm LV Diastolic Volume MOD 2C 54.0 cm??? LV Systolic Volume MOD 2C 19.0 cm??? LV Ejection Fraction MOD 2C 64.8 % LV Diastolic Length 2C 6.8 cm LV Systolic Length 2C 5.9 cm LA Volume 57.8 cm??? 18 - 58 / 22 - 52 cm??? Ascending Aorta Diameter 3.1 cm DOPPLER AV Peak Velocity 116.4 cm/s AV Peak Gradient 5.4 mmHg LVOT Peak Velocity 81.1 cm/s LVOT Peak Gradient 2.6 mmHg AV Area Cont Eq pk 3.1 cm??? MV Peak Velocity 92.2 cm/s MV Peak Gradient 3.4 mmHg MV Mean Velocity 46.2 cm/s MV Mean Gradient 1.0 mmHg MV Velocity Time Integral 34.5 cm MR Peak Velocity 438.1 cm/s MR Peak Gradient 76.8 mmHg Mitral E Point Velocity 110.5 cm/s Mitral A Point Velocity 57.3 cm/s Mitral E to A Ratio 1.9 MV Deceleration Time 187.3 ms MV E' Velocity 7.1 cm/s Mitral E to MV E' Ratio 15.6 TR Peak Velocity 303.8 cm/s TR Peak Gradient 36.9 mmHg Right Ventricular Systolic Press 47.0 mmHg PV Peak Velocity 88.0 cm/s PV Peak Gradient 3.1 mmHg FINDINGS Left Ventricle Mildly increased septal wall thickness. Normal LV size. Left ventricular ejection fraction is estimated at _55-60 %. Right Ventricle RV diameter= 3.9cm. RVSP= 44mmhg. Right Atrium Normal right atrial size. Left Atrium Mild left atrial dilatation. Mitral Valve Structurally normal mitral valve. Aortic Valve Mild AV sclerosis/calcification.no aortic valve stenosis or regurgitation. Tricuspid Valve Tricuspid valve not well visualized. Pulmonic Valve Pulmonic valve not well visualized. Mild PI. Pericardium Normal pericardium. Aorta Normal size aortic root and proximal ascending aorta. CONCLUSIONS Normal LV function Pulmonary hypertension Mild left atrial enlargement Previewed by: John Frost MD Dr. Suresh Tumma MD (Electronically Signed) Final Date: 06 November 2022 17:09
[2022-11-06] MEDS ORDERED: KETAMINE 10 MG/ML 20 ML VIAL ONE (17:30)
[2022-11-06] MEDS ORDERED: MIDAZOLAM 2 MG/2 ML VIAL ONE (17:30)
[2022-11-06] MEDS ORDERED: LIDOCAINE 2% INJ 20 MG/ML (2 ML VIAL) ONE (17:30)
[2022-11-06] MEDS ORDERED: PROPOFOL 10 MG/ML 20 ML VIAL IV ONE (17:30)
[2022-11-06] MEDS ORDERED: LIDOCAINE 2% INJ 20 MG/ML SQ ONE (18:00)
[2022-11-06 20:27] LABS: Glucose,Whole Blood 123 mg/dL (70-110)
[2022-11-06] MEDS: TEMAZEPAM 15 MG CAP PO SCH (21:06)
[2022-11-07] MEDS: CEFEPIME 2 GM in SODIUM CHLORIDE 0.9% 100 ML IVPB SCH ×3 (01:06→17:34)
[2022-11-07] MEDS: VANCOMYCIN 1,500 MG in SODIUM CHLORIDE 0.9% 500 ML 500 ML IVPB SCH ×2 (01:06→13:51)
[2022-11-07] MEDS: HYDROmorphone 1 MG/ML 1 ML SYRINGE IVP PRN ×5 (01:33→20:55)
--- NOTE | 2022-11-07 02:21 | OP ---
OPERATIVE REPORT DATE OF SERVICE : PREOPERATIVE DIAGNOSIS: Charcot foot with infected wound on the plantar aspect of the right foot, measurement is 3 x 3 x 0.5 cm. POSTOPERATIVE DIAGNOSIS: Charcot foot with infected wound on the plantar aspect of the right foot, measurement is 3 x 3 x 1 cm. DESCRIPTION OF PROCEDURE: This patient was brought to the operating room under local and IV sedation. Right foot was prepped and draped in the usual sterile manner. This patient has a chronic wound on the plantar aspect of the right foot. Using knife, we did the debridement down to the subcu tissue, fat, and fascia almost down to the bone. All devitalized tissue was removed which was sent for deep culture. The wound was copiously irrigated with saline and bleeding points were controlled and Aquacel Silver rope was placed and dressing was applied. The patient transferred to recovery room in satisfactory condition. MMLELAND / SARAH: [id number] /
[2022-11-07 04:43] LABS: Methylmalonic Acid 0.2 umol/L (<0.40)
[2022-11-07 06:13] LABS: Glucose,Whole Blood 325 mg/dL (70-110)
--- NOTE | 2022-11-07 06:51 | PN ---
PROGRESS NOTE DATE OF SERVICE: 11/06/2022 SUBJECTIVE: This is a 67-year-old gentleman who was admitted with significant infection of the right foot, is being evaluated for possible osteomyelitis of right foot. CAT scan showed Charcot joints and inflammation. The patient also had elevated troponin. Cardiology is treating the patient medically. Echocardiogram has been taken. PAST MEDICAL HISTORY: Reviewed. REVIEW OF SYSTEMS: A 14-point review is negative except as mentioned earlier. CURRENT MEDICATIONS: Reviewed include cefepime, doses and rest of medications reviewed. PHYSICAL EXAMINATION: VITAL SIGNS: Pulse is 52, blood pressure 138/74, respirations 18. HEENT: Conjunctivae normal. NECK: No jugular venous distention. CARDIOVASCULAR: S1, S2. RESPIRATORY: Breath sounds diminished at the bases. Few scattered rhonchi. ABDOMEN: Soft, nontender. MUSCULOSKELETAL: Right leg cellulitis and possible osteomyelitis present. LABORATORY DATA: Labs are reviewed. ASSESSMENT: 1. Acute right foot diabetic foot ulcer as well as sepsis, present on admission. 2. Right foot Charcot foot. 3. Troponin 3.9 with acute beg-AN-dhdqwnj-elevation myocardial infarction. 4. Diabetes mellitus, type 2. 5. History of coronary artery disease. 6. Hypertension. 7. Hyperlipidemia. 8. Multiple medical issues. RECOMMENDATIONS AND DISCUSSION: I recommend to continue current symptomatic treatment, continue antibiotics. Otherwise, I would recommend closely follow with Cardiology with antiplatelet agents. Infectious Disease evaluation. Follow the cultures. Guarded prognosis because of the multiple complex medical issues and I recommended a bone scan also. Further recommendations to follow. MMODL / IJN: [id number] /
[2022-11-07] MEDS: INSULIN ASPART (NovoLOG) 100 UNIT/ML VIAL SQ SCH ×4 (07:00→20:19)
[2022-11-07] MEDS: CLOPIDOGREL 75 MG TAB PO SCH (09:11)
[2022-11-07] MEDS: METOPROLOL TARTRATE 25 MG TAB PO SCH ×2 (09:11→23:55)
[2022-11-07] MEDS: ATORVASTATIN 40 MG TAB PO SCH (09:11)
[2022-11-07] MEDS: GABAPENTIN 300 MG CAP PO SCH ×3 (09:11→20:55)
[2022-11-07] MEDS: metroNIDAZOLE 500 MG TAB PO SCH ×3 (09:11→20:55)
[2022-11-07] MEDS: glipiZIDE 10 MG TAB PO SCH ×2 (09:11→20:55)
[2022-11-07] MEDS: ASPIRIN 81 MG PO SCH (09:11)
[2022-11-07] MEDS: PANTOPRAZOLE 40 MG/10 ML VIAL IV SCH (09:12)
[2022-11-07] MEDS: FLUTICASONE 50MCG/SPRAY NASAL 16GM EA NOSTRIL SCH (09:40)
[2022-11-07] MEDS: NUBEQA PO SCH ×2 (09:40→21:27)
[2022-11-07 11:40] LABS: Glucose,Whole Blood 129 mg/dL (70-110)
--- NOTE | 2022-11-07 11:51 | P.PN ---
Subjective Progress Note Date: 11/07/22 HISTORY OF PRESENT ILLNESS: The patient is a 67-year-old male with known history of CAD, status post CABG in April 2019, he received a MCRAE to the LAD, left radial to the first OM, SVG to the second OM and SVG to the RCA, he has a known history of May Thurner syndrome status post stenting of bilateral iliac vein, history of diabetes, hypertension, hyperlipidemia and chronic tobacco use and a prior history of stroke who presents with symptoms of not feeling well but without any symptoms of chest discomfort, dyspnea or dizziness. He has stage IV prostate cancer, received ra diation therapy and is receiving hormonal therapy, followed by Dr. Moran. He is limited in his physical activity he has Charcot tooth worked on the right side, he had an ulcer on the right plantar aspect. He has peripheral edema for the last few months, no clear PND or orthopnea. He denies any dizziness or palpitations or syncope. He has no history of malignant arrhythmia. In the emergency room he was noted to have a troponin of 6. In the past and he had ischemic events he had associated chest discomfort. He has mild cough but no change in his breathing. He had no fever at home. His echocardiogram in 2018 showed an ejection fraction of 50-55%. His EKG today showed no acute ST segment changes. His corneas factors are positive for hypertension, hyperlipidemia, diabetes and chronic tobacco use. He had Covid infection recently but is negative at this point Medications: Glucotrol, Norvasc 2.5 mg daily, Plavix, Lipitor 40 mg daily, aspirin, Jardiance, Neurontin, trazodone, Trulicity November 05: The patient feels better today, he denies any chest discomfort, dizziness or palpitations. His troponin is trending down. He denies any nausea or vomiting. He has no cough or fever. He continues to be in sinus mechanism. He had the foot x-ray that showed evidence consistent with Charcot neuroarthropathy. His echocardiogram is pending 11/06/2022 Patient examined this morning at the bedside. Patient currently denies chest pain or pressure. Patient denies shortness of breath. He states that he feels tired and had a rough night. Patient was evaluated by vascular surgery and is scheduled for right foot debridement tomorrow 11/07/2022 Patient examined this morning. Patient is sitting up in the chair. Patient denies chest pain or pressure. He denies shortness of breath. Patient underwent right foot debridement yesterday with vascular surgery. Patient continues to report pain of his bilateral Kim remains which he states is mostly due to his neuropathy. Echocardiogram completed revealing ejection fraction 55-60% with pulmonary hypertension and mild left atrial enlargement. PHYSICAL EXAM: VITAL SIGNS: Reviewed. GENERAL: Well-developed in no acute distress. NECK: Supple. No JVD or thyromegaly LUNGS: Respirations even and unlabored. Lungs essentially clear to auscultation bilaterally. HEART: Regular rate and rhythm. S1 and S2 heard. EXTREMITIES: Normal range of motion. No clubbing or cyanosis. Peripheral pul ses intact. No lower extremity edema ASSESSMENT: Non-STEMI Right foot infection status post right foot debridement Charcot joint of the right foot Stage IV prostate cancer Coronary artery disease with previous CABG Diabetes PLAN: Continue current cardiac medications Patient is not a candidate for aggressive cardiac workup at this time due to acute issues Patient follow-up post discharge with Dr. Novak Further recommendations pending patient course Nurse practitioner note has been reviewed by physician. Signing provider agrees with the documented findings, assessment, and plan of care. Objective - Vital Signs Vital signs: Vital Signs Temp 99.0 F 11/06/22 20:00 Pulse 63 11/07/22 04:00 Resp 18 11/07/22 04:00 BP 101/62 11/07/22 04:00 Pulse Ox 97 11/07/22 04:00 FiO2 Intake & Output 11/06/22 11/07/22 11/07/22 18:59 06:59 18:59 Intake Total 300 222 Output Total 205 550 150 Balance 95 -550 72 Intake: IV 300 Oral 222 Output: Gastric Drainage 0 Urine 200 550 150 Stool 0 0 Urine/Stool Mix 0 Emesis 0 Oral Regurgitation 0 Estimated Blood Loss 5 Other 0 Other: Voiding Method External Catheter External Catheter # Voids 0 # Bowel Movements 0 - Labs CBC & Chem 7: 11/06/22 07:21 11/06/22 07:21 Labs: Abnormal Lab Results - Last 24 Hours (Table) 11/06/22 11/06/22 11/07/22 Range/Units 12:00 20:25 06:12 POC Glucose (mg/dL) 129 H 123 H 325 H (70-110) mg/dL 11/07/22 Range/Units 11:33 POC Glucose (mg/dL) 129 H (70-110) mg/dL Microbiology - Last 24 Hours (Table) 11/04/22 16:15 Blood Culture - Preliminary Blood 11/04/22 16:00 Blood Culture - Preliminary Blood 11/05/22 13:50 Gram Stain - Preliminary Foot - Right Wound Culture - Preliminary Gram Neg Bacilli
[2022-11-07 11:55] LABS: African American GFR (CKD) 70 (>60 ml/min/1.73 sqM); Non-African American GFR(CKD) 60 (>60 ml/min/1.73 sqM)
--- NOTE | 2022-11-07 13:58 | NM ---
EXAMINATION TYPE: NM bone 3 phase DATE OF EXAM: 11/07/2022 COMPARISON: 11/04/2022 CLINICAL INDICATION: Male, 67 years old with history of rt foot; Triple phase bone scintigraphy was performed following the injection of 25 mCi Tc 99m MDP. Immediate images and 5.25 hours post injection images acquired. FINDINGS: There is increased flow to the right foot There is increased diffuse soft tissue uptake involving the right foot distally greater along the fou rth and fifth digits. There is intermediate abnormal uptake involving the bilateral mid tarsal and the left ankle likely po st arthritic. IMPRESSION: No scintigraphic evidence of osteomyelitis. Findings are felt to be most compatible with cellulitis.
--- NOTE | 2022-11-07 14:16 | P.PCN ---
Description of Procedure: preoperative diagnoses is acute renal failure Posterior same Procedure ultrasound-guided dialysis catheter placed a right femoral approach patient brought to the [employer] right groin was prepped and draped applied in standard manner ultrasound-guided micropuncture introduced, femoral vein micropuncture guidewire was passed and 4-Moroccan dilator advanced. The guidewire. Then he was a regular guidewire and then we placed a dilator and then dialysis catheter on the top of the guidewire guidewire was removed flushed with heparin saline and Hep-Lock secured with 3-0 nylon dressing applied patient tolerated the procedure well patient transferred to his room in satisfactory condition
--- NOTE | 2022-11-07 14:55 | P.PN ---
Progress Note - Text Patient was seen today in his room this patient has a Charcot foot patient came with infected wound plantar aspect we did the debridement excise all the devitalized tissue which was sent for deep culture on examination today we have changed her dressing base of the wound is clean no discharge noted we irrigated the wound and placed Aquacel silver patient is an IV antibiotic under care of infectious disease patient will need offloading shoes. She has a dressing on Thursday
--- NOTE | 2022-11-07 15:14 | P.PN ---
Subjective Progress Note Date: 11/06/22 Principal diagnosis: Right diabetic foot infection Patient is a 67-year old male with a past medical history significant for diabetes mellitus the patient did have right Charcot deformity history of prostate cancer coronary disease presenting to the hospital for evaluation of feeling weak, patient was noticed to have infected callus on the plantar aspect of the right foot with draining pus CT was suggestive of possible abscess. on today's evaluation that is 11/06/2022: Patient denies having any fever or any chills, the patient is breathing comfortably no chest pain shortness of the cough no abdominal pain or any worsening pain to the right foot area currently waiting for surgery Objective - Vital Signs Vital signs: Vital Signs Temp 97.8 F 11/06/22 08:00 Pulse 52 L 11/06/22 08:00 Resp 18 11/06/22 08:00 BP 132/74 11/06/22 08:00 Pulse Ox 99 11/06/22 08:00 FiO2 Intake & Output 11/05/22 11/06/22 11/06/22 18:59 06:59 18:59 Intake Total 342.8 Output Total 1550 0 200 Balance -1207.2 0 -200 Weight 96 kg Intake: Intake, IV Titration 106.8 Amount Heparin Sod,Pork in 0.45% 106.8 NaCl 25,000 unit In 0.45 % NaCl 1 250ml.bag @ 10. 498 UNITS/KG/HR 10 mls/hr IV .Q24H [facility] Rx#: [id number] Oral 236 Output: Urine 1550 0 200 Other: Voiding Method External Catheter External Catheter External Catheter # Voids 1 - Exam GENERAL DESCRIPTION: An elderly male lying in bed in no distress RESPIRATORY SYSTEM: Unlabored breathing , decreased breath sounds at bases HEART: S1 S2 regular rate and rhythm , ABDOMEN: Soft , no tenderness EXTREMITIES: Right foot is currently dressed - Labs CBC & Chem 7: 11/06/22 07:21 11/07/22 11:14 Labs: Abnormal Lab Results - Last 24 Hours (Table) 11/05/22 11/05/22 11/05/22 Range/Units 11:31 11:31 16:11 RBC (4.30-5.90) m/uL Hgb (13.0-17.5) gm/dL Hct (39.0-53.0) % Lymphocytes # (1.0-4.8) k/uL Sodium (137-145) mmol/L Glucose (74-99) mg/dL POC Glucose (mg/dL) 223 H (70-110) mg/dL Calcium (8.4-10.2) mg/dL Iron 27 L (65-175) UG/DL % Saturation 11.34 L (15.00-50.00) Transferrin 170.0 L (204.0-354.0) mg/dL Ferritin 763.0 H (22.0-322.0) ng/mL Creatine Kinase 172 H (55-170) U/L Vitamin B12 983.0 H (200.0-944.0) pg/mL 11/05/22 11/05/22 11/06/22 Range/Units 18:23 20:12 06:23 RBC 3.07 L (4.30-5.90) m/uL Hgb 9.2 L (13.0-17.5) gm/dL Hct 27.5 L (39.0-53.0) % Lymphocytes # (1.0-4.8) k/uL Sodium (137-145) mmol/L Glucose (74-99) mg/dL POC Glucose (mg/dL) 206 H 111 H (70-110) mg/dL Calcium (8.4-10.2) mg/dL Iron (65-175) UG/DL % Saturation (15.00-50.00) Transferrin (204.0-354.0) mg/dL Ferritin (22.0-322.0) ng/mL Creatine Kinase (55-170) U/L Vitamin B12 (200.0-944.0) pg/mL 11/06/22 11/06/22 11/06/22 Range/Units 07:21 07:21 12:00 RBC 3.13 L (4.30-5.90) m/uL Hgb 9.4 L (13.0-17.5) gm/dL Hct 28.3 L (39.0-53.0) % Lymphocytes # 0.4 L (1.0-4.8) k/uL Sodium 136 L (137-145) mmol/L Glucose 104 H (74-99) mg/dL POC Glucose (mg/dL) 129 H (70-110) mg/dL Calcium 7.6 L (8.4-10.2) mg/dL Iron (65-175) UG/DL % Saturation (15.00-50.00) Transferrin (204.0-354.0) mg/dL Ferritin (22.0-322.0) ng/mL Creatine Kinase (55-170) U/L Vitamin B12 (200.0-944.0) pg/mL Microbiology - Last 24 Hours (Table) 11/05/22 13:50 Gram Stain - Preliminary Foot - Right 11/04/22 16:15 Blood Culture - Preliminary Blood 11/04/22 16:00 Blood Culture - Preliminary Blood 11/04/22 17:24 Urine Culture - Final Urine,Voided Assessment and Plan (1) Foot abscess, right Current Visit: Yes Status: Acute Code(s): L02.611 - CUTANEOUS ABSCESS OF RIGHT FOOT SNOMED Code(s): 99547418400767375 (2) Diabetic foot ulcer Current Visit: Yes Status: Acute Priority: High Code(s): E11.621 - TYPE 2 DIABETES MELLITUS WITH FOOT ULCER; L97.509 - NON-PRESSURE CHRONIC ULCER OTH PRT UNSP FOOT W UNSP SEVERITY SNOMED Code(s): 373240012 Plan: 1patient presented hospital with right diabetic foot infection in this patient who did have a evidence of Charcot deformity to the right foot he did have a callus on the plantar aspect and a wound that was draining purulent material with foul-smelling we will need to cover for the polymicrobial natalie usually associated with a diabetic foot infection and need to rule out deep abscess and underlying osteomyelitis. 2patient with a penicillin allergy that would limit the number of antibiotics safe to use 3 CT of the right foot to make sure suggestive fluid collection but no evidence of any bony destruction 4we will continue patient on combination of vancomycin cefepime and Flagyl while waiting for I&D and deep cultures Family the bedside questions were answered Time with Patient: Less than 30
--- NOTE | 2022-11-07 15:17 | P.PN ---
Subjective Progress Note Date: 11/07/22 Principal diagnosis: Right diabetic foot infection Patient is a 67-year old male with a past medical history significant for diabetes mellitus the patient did have right Charcot deformity history of prostate cancer coronary disease presenting to the hospital for evaluation of feeling weak, patient was noticed to have infected callus on the plantar aspect of the right foot with draining pus CT was suggestive of possible abscess. Patient is status post I&D of the right foot wound which was extended down to the wound per operative report on 11/06/2022 on today's evaluation that is 11/07/2022: Patient remains to be afebrile, the patient is breathing comfortably on room air, the patient denies chest pain shortness of the cough no abdominal pain or any worsening pain to the right foot area Objective - Vital Signs Vital signs: Vital Signs Temp 99.0 F 11/06/22 20:00 Pulse 63 11/07/22 04:00 Resp 18 11/07/22 04:00 BP 101/62 11/07/22 04:00 Pulse Ox 97 11/07/22 04:00 FiO2 Intake & Output 11/06/22 11/07/22 11/07/22 18:59 06:59 18:59 Intake Total 300 222 Output Total 205 550 150 Balance 95 -550 72 Intake: IV 300 Oral 222 Output: Gastric Drainage 0 Urine 200 550 150 Stool 0 0 Urine/Stool Mix 0 Emesis 0 Oral Regurgitation 0 Estimated Blood Loss 5 Other 0 Other: Voiding Method External Catheter External Catheter # Voids 0 # Bowel Movements 0 - Exam GENERAL DESCRIPTION: An elderly male lying in bed in no distress RESPIRATORY SYSTEM: Unlabored breathing , decreased breath sounds at bases HEART: S1 S2 regular rate and rhythm , ABDOMEN: Soft , no tenderness EXTREMITIES: Right foot is currently dressed - Labs CBC & Chem 7: 11/06/22 07:21 11/07/22 11:14 Labs: Abnormal Lab Results - Last 24 Hours (Table) 11/05/22 11/06/22 11/07/22 Range/Units 11:31 20:25 06:12 POC Glucose (mg/dL) 123 H 325 H (70-110) mg/dL Copper 1709 H (665-1480) ug/L 11/07/22 Range/Units 11:33 POC Glucose (mg/dL) 129 H (70-110) mg/dL Copper (665-1480) ug/L Microbiology - Last 24 Hours (Table) 11/04/22 16:15 Blood Culture - Preliminary Blood 11/04/22 16:00 Blood Culture - Preliminary Blood 11/05/22 13:50 Gram Stain - Preliminary Foot - Right Wound Culture - Preliminary Gram Neg Bacilli Assessment and Plan (1) Foot osteomyelitis, right Current Visit: Yes Status: Acute Code(s): M86.9 - OSTEOMYELITIS, UNSPECIFIED SNOMED Code(s): 1999089321220697 (2) Diabetic foot ulcer Current Visit: Yes Status: Acute Priority: High Code(s): E11.621 - TYPE 2 DIABETES MELLITUS WITH FOOT ULCER; L97.509 - NON-PRESSURE CHRONIC ULCER OTH PRT UNSP FOOT W UNSP SEVERITY SNOMED Code(s): 931698217 (3) Foot abscess, right Current Visit: Yes Status: Acute Code(s): L02.611 - CUTANEOUS ABSCESS OF RIGHT FOOT SNOMED Code(s): 17164543864126444 Plan: 1patient presented hospital with right diabetic foot infection in this patient who did have a evidence of Charcot deformity to the right foot he did have a callus on the plantar aspect and a wound that was draining purulent material with foul-smelling we will need to cover for the polymicrobial natalie usually as sociated with a diabetic foot infection and need to rule out deep abscess and underlying osteomyelitis. 2patient with a penicillin allergy that would limit the number of antibiotics safe to use 3 CT of the right foot to make sure suggestive fluid collection but no evidence of any bony destruction 4 patient is status post drainage of right foot abscess and concerning for infection tracking all the way down to the bone suspicious for clinical osteomyelitis acute- 4we will continue patient on combination of vancomycin cefepime and Flagyl while waiting for deep cultures to finalize discharge antibiotics will need a PICC line for outpatient IV antibiotics Time with Patient: Less than 30
[2022-11-07 16:37] LABS: Glucose,Whole Blood 176 mg/dL (70-110)
--- NOTE | 2022-11-07 18:00 | P.PN ---
Subjective Progress Note Date: 11/07/22 Principal diagnosis: foot ulcer, hx prostate cancer At today's visit patient is resting comfortably in bed. Patient reports he is feeling well. He continues on IV antibiotics and wound care. Patient started Nubeqa 11/05. No other reported complaints at this time Objective - Vital Signs Vital signs: Vital Signs Temp 99.0 F 11/06/22 20:00 Pulse 63 11/07/22 14:00 Resp 18 11/07/22 14:00 BP 101/62 11/07/22 04:00 Pulse Ox 97 11/07/22 04:00 FiO2 Intake & Output 11/06/22 11/07/22 11/07/22 18:59 06:59 18:59 Intake Total 300 222 Output Total 205 550 150 Balance 95 -550 72 Intake: IV 300 Oral 222 Output: Gastric Drainage 0 Urine 200 550 150 Stool 0 0 Urine/Stool Mix 0 Emesis 0 Oral Regurgitation 0 Estimated Blood Loss 5 Other 0 Other: Voiding Method External Catheter External Catheter External Catheter # Voids 0 # Bowel Movements 0 - Constitutional General appearance: Present: no acute distress, obese - EENT Eyes: Present: anicteric sclerae, EOMI ENT: Present: hearing grossly normal - Respiratory Details: breathing is even and unlabored - Cardiovascular Details: skin is warm and dry - Integumentary Integumentary Comment(s): wound right foot, plantar aspect - Psychiatric Psychiatric: Present: A&O x's 3, appropriate affect, intact judgment & insight - Labs CBC & Chem 7: 11/06/22 07:21 11/07/22 11:14 Labs: Abnormal Lab Results - Last 24 Hours (Table) 11/05/22 11/06/22 11/07/22 Range/Units 11:31 20:25 06:12 POC Glucose (mg/dL) 123 H 325 H (70-110) mg/dL Copper 1709 H (665-1480) ug/L 11/07/22 11/07/22 Range/Units 11:33 16:36 POC Glucose (mg/dL) 129 H 176 H (70-110) mg/dL Copper (665-1480) ug/L Microbiology - Last 24 Hours (Table) 11/06/22 17:57 Gram Stain - Preliminary Foot - Right 11/04/22 16:15 Blood Culture - Preliminary Blood 11/04/22 16:00 Blood Culture - Preliminary Blood 11/05/22 13:50 Gram Stain - Preliminary Foot - Right Wound Culture - Preliminary Gram Neg Bacilli Assessment and Plan (1) Malignant neoplasm of prostate Current Visit: Yes Status: Acute Priority: Medium Code(s): C61 - MALIGNANT NEOPLASM OF PROSTATE SNOMED Code(s): 297473052 (2) Diabetic foot ulcer Current Visit: Yes Status: Acute Priority: High Code(s): E11.621 - TYPE 2 DIABETES MELLITUS WITH FOOT ULCER; L97.509 - NON-PRESSURE CHRONIC ULCER OTH PRT UNSP FOOT W UNSP SEVERITY SNOMED Code(s): 023182839 (3) Elevated troponin Current Visit: Yes Status: Acute Priority: High Code(s): R77.8 - OTHER SPECIFIED ABNORMALITIES OF PLASMA PROTEINS SNOMED Code(s): 198988441 (4) Anemia Current Visit: Yes Status: Acute Priority: Medium Code(s): D64.9 - ANEMIA, UNSPECIFIED SNOMED Code(s): 053662134 Plan: Prostate cancer -Diagnosed with prostate cancer in August 2019, prostate biopies revealing feliciano 8(4+4) in 5 cores. He underwent EBRT and LHRH agonist treatment for 18 months. PSA was down to 0.2 on 04/2021. On 01/2022, PSA was up to 33.3, and subsequently went back on LHRH agnoist and started xtandi. His CT scan of chest/abdomen/plevis on 02/24/2022 revealed retroperitoneal nodes, bone scan on 04/08/2022, revealed evidence of osseous mets involving sternum, ribs and pelvic bones. He had palliative radiation therapy to sternum in June/2022. Due to side effects of Xtandi, patient was switched to Nubeqa, however patient just received medication and has not yet started. He continues with lupron injections with Dr. Camara. He was also started on Xgeva on 10/20/22. Will hold any further xgeva injections until wound is healed -Pt started Nubeqa yesterday, may continue. Will schedule clinic f/u upon discharge Elevated troponins -Trops elevated upon admission. Patient was started on heparin drip. -Cardiology following with plan for echocardiogram. -Defer management to cardiology and IM teams Foot wound: -Foot x-ray showed wound involving the plantar surface with deformity to the midfoot. Findings suspicious for charcot neuroarthropathy. -Cefepime and vanco. ID following. -Blood culture negative thus far. Wound culture positive for gram neg bacilli. WBC stable, 4.4 Anemia: -Normocytic normochromic anemia noted on CBC, hemoglobin 9.4. Upon trending labs anemia was noted during previous admissions dating back to 2019. During clinic follow-up in the last 2 months hemoglobin was in normal range of 12-13. Patient denies any recent rectal bleeding or dark tarry stools. -Anemia workup revealed no nutritional deficiencies. This is likely r/t anemia of inflammation, as this has been seen in previous hospitalizations. Would expect counts to improve as acute condition resolves -Please transfuse for hemoglobin less than 7 -Will continue to monitor counts attests: I have performed H&P and developed impression and plan of care for patient, discussed with dictator. I agree with dictated note, documented as a scribe
[2022-11-07 20:19] LABS: Glucose,Whole Blood 123 mg/dL (70-110)
[2022-11-07] MEDS: TEMAZEPAM 15 MG CAP PO SCH (20:55)
[2022-11-07] MEDS: oxyCODONE-APAP 10-325MG 1 EACH TAB PO PRN (22:36)
--- NOTE | 2022-11-08 00:02 | PN ---
PROGRESS NOTE DATE OF SERVICE: 11/07/2022 SUBJECTIVE: This is a 67-year-old gentleman who was admitted with right diabetic foot ulcer and sepsis, also has Charcot foot. The patient underwent debridement by Dr. Abernathy. The patient also had acute ixd-SE-kcxncba-elevation myocardial infarction. A 2D echo with Doppler showed normal ejection fraction. PAST MEDICAL HISTORY: Reviewed. REVIEW OF SYSTEMS: A 14-point review is negative except as mentioned earlier. CURRENT MEDICATIONS: Reviewed include cefepime, doses and rest of medications noted. PHYSICAL EXAMINATION: VITAL SIGNS: Pulse is 63, blood pressure 101/62, respirations 18. CHEST: Clear to auscultation. CARDIOVASCULAR: S1, S2. ABDOMEN: Soft, obese. LEGS: Right foot ulcer present. LABORATORY DATA: Reviewed. ASSESSMENT: 1. Acute right foot diabetic ulcer with sepsis present on admission, status post debridement, excision. 2. Right foot Charcot foot. 3. Troponin 3.9 with possible acute bfb-WP-yasczdx-elevation myocardial infarction, on medical treatment per Cardiology. 4. Diabetes type 2. 5. CAD. 6. Hypertension. 7. Multiple medical issues. RECOMMENDATIONS: Recommended to continue current management, continue symptomatic treatment, repeat labs. Continue antiplatelet agents. Continue the broad-spectrum IV antibiotics. The wound culture showing gram-negative bacilli. Final ID is pending. Closely follow with Infectious Disease, Cardiology, and Vascular Surgery. Further recommendations to follow. Prognosis guarded. Possible IV antibiotics as an outpatient. MMODL / IJN: [id number] /
[2022-11-08] MEDS: CEFEPIME 2 GM in SODIUM CHLORIDE 0.9% 100 ML IVPB SCH ×3 (00:05→17:41)
[2022-11-08] MEDS: VANCOMYCIN 1,500 MG in SODIUM CHLORIDE 0.9% 500 ML 500 ML IVPB SCH ×2 (00:05→13:22)
[2022-11-08 05:27] LABS: Glucose,Whole Blood 63 mg/dL (70-110)
[2022-11-08] MEDS: HYDROmorphone 1 MG/ML 1 ML SYRINGE IVP PRN ×5 (05:44→21:03)
[2022-11-08 05:51] LABS: Glucose,Whole Blood 76 mg/dL (70-110)
[2022-11-08] MEDS: INSULIN ASPART (NovoLOG) 100 UNIT/ML VIAL SQ SCH ×4 (06:15→20:39)
[2022-11-08 06:29] LABS: Basophils % (A) 0 %; Eosinophils # (A) 0.1 k/uL (0-0.7); Eosinophils % (A) 2 %; HCT 30.1 % (39.0-53.0); HGB 10.3 gm/dL (13.0-17.5); Hypochromasia Moderate; Lymphocytes # (A) 0.6 k/uL (1.0-4.8); Lymphocytes % (A) 11 %; MCH 31.7 pg (25.0-35.0); MCHC 34.1 g/dL (31.0-37.0); Mean Platelet Volume 8.3; Monocytes # (A) 0.2 k/uL (0-1.0); Monocytes % (A) 4 %; Neutrophils # (A) 4.8 k/uL (1.3-7.7); Neutrophils % (A) 81 %; Platelet Count 164 k/uL (150-450); Poikilocytosis Slight; RBC 3.23 m/uL (4.30-5.90); RDW 14.5 % (11.5-15.5); WBC 5.9 k/uL (3.8-10.6)
[2022-11-08 06:38] LABS: African American GFR (CKD) >90 (>60 ml/min/1.73 sqM); Anion Gap 11 mmol/L; Blood Urea Nitrogen 14 mg/dL (9-20); Calcium 7.7 mg/dL (8.4-10.2); Carbon Dioxide 18 mmol/L (22-30); Chloride 107 mmol/L (98-107); Glucose 89 mg/dL (74-99); Non-African American GFR(CKD) 88 (>60 ml/min/1.73 sqM); Potassium 3.6 mmol/L (3.5-5.1); Sodium 136 mmol/L (137-145)
[2022-11-08] MEDS: GABAPENTIN 300 MG CAP PO SCH ×3 (08:07→20:38)
[2022-11-08] MEDS: ATORVASTATIN 40 MG TAB PO SCH (08:07)
[2022-11-08] MEDS: CLOPIDOGREL 75 MG TAB PO SCH (08:07)
[2022-11-08] MEDS: metroNIDAZOLE 500 MG TAB PO SCH ×3 (08:07→20:39)
[2022-11-08] MEDS: ASPIRIN 81 MG PO SCH (08:07)
[2022-11-08] MEDS: glipiZIDE 10 MG TAB PO SCH ×2 (08:07→20:39)
[2022-11-08] MEDS: oxyCODONE-APAP 10-325MG 1 EACH TAB PO PRN ×2 (08:07→17:04)
[2022-11-08] MEDS: PANTOPRAZOLE 40 MG/10 ML VIAL IV SCH (08:09)
[2022-11-08] MEDS: FLUTICASONE 50MCG/SPRAY NASAL 16GM EA NOSTRIL SCH (09:51)
[2022-11-08] MEDS: METOPROLOL TARTRATE 25 MG TAB PO SCH ×2 (09:52→20:38)
[2022-11-08] MEDS: NUBEQA PO SCH ×2 (09:53→20:39)
[2022-11-08 11:10] LABS: Glucose,Whole Blood 173 mg/dL (70-110)
[2022-11-08] MEDS: KETOROLAC 15 MG/ML 1 ML VIAL IVP PRN ×2 (12:14→20:38)
--- NOTE | 2022-11-08 14:24 | P.PN ---
Subjective Progress Note Date: 11/08/22 The patient is a 67-year-old male with known history of CAD, status post CABG in April 2019, he received a MCRAE to the LAD, left radial to the first OM, SVG to the second OM and SVG to the RCA, he has a known history of May Thurner syndrome status post stenting of bilateral iliac vein, history of diabetes, hypertension, hyperlipidemia and chronic tobacco use and a prior history of stroke who presents with symptoms of not feeling well but without any symptoms of chest discomfort, dyspnea or dizziness. He has stage IV prostate cancer, received radiation therapy and is receiving hormonal therapy, followed by Dr. Moran. He is limited in his physical activity he has Charcot foot on the right side, he had an ulcer on the right plantar aspect. He has peripheral edema for the last few months, no clear PND or orthopnea. He denies any dizziness or palpitations or syncope. He has no history of malignant arrhythmia. In the emergency room he was noted to have a troponin of 6. In the past when he had ischemic events he had associated chest discomfort. He has mild cough but no change in his veronica thing. He had no fever at home. His EKG today showed no acute ST segment changes. His coronary risk factors are positive for hypertension, hyperlipidemia, diabetes and chronic tobacco use. He had Covid infection recently but is negative at this point Medications: Glucotrol, Norvasc 2.5 mg daily, Plavix, Lipitor 40 mg daily, aspirin, Jardiance, Neurontin, trazodone, Trulicity He underwent right foot ulcer debridement 11/06/2022. Echocardiogram revealed ejection fraction of 55-60% with pulmonary hypertension and mild left atrial enlargement. 11/08/22 Patient was seen and examined resting temporally embedded. He is overall feeling fairly well. His only complaint is neuropathic pain in his feet and hands. He's had no chest discomfort. His breathing is stable. Denies any palpitations, dizziness or lightheadedness he has mild edema but denies any orthopnea or PND. His vital signs are stable and he's afebrile. Objective - Vital Signs Vital signs: Vital Signs Temp 97.9 F 11/08/22 12:00 Pulse 54 L 11/08/22 12:00 Resp 18 11/08/22 12:00 BP 122/75 11/08/22 12:00 Pulse Ox 99 07/15/23 12:00 FiO2 Intake & Output 11/07/22 11/08/22 11/08/22 18:59 06:59 18:59 Intake Total 222 Output Total 150 500 Balance 72 -500 Weight 98 kg Intake: Oral 222 Output: Urine 150 500 Other: Voiding Method External Catheter External Catheter External Catheter # Voids 1 - Exam GENERAL: Well-developed in no acute distress. NECK: Supple. No JVD or thyromegaly LUNGS: Respirations even and unlabored. Lungs essentially clear to auscultation bilaterally. HEART: Regular rate and rhythm. S1 and S2 heard. EXTREMITIES: Normal range of motion. No clubbing or cyanosis. Trace lower extremity edema. Dressing and joseph wrap intact to the right foot - Labs CBC & Chem 7: 11/08/22 06:09 11/08/22 06:09 Labs: Abnormal Lab Results - Last 24 Hours (Table) 11/07/22 11/07/22 11/08/22 Range/Units 16:36 20:17 05:25 RBC (4.30-5.90) m/uL Hgb (13.0-17.5) gm/dL Hct (39.0-53.0) % Lymphocytes # (1.0-4.8) k/uL Sodium (137-145) mmol/L Carbon Dioxide (22-30) mmol/L POC Glucose (mg/dL) 176 H 123 H 63 L (70-110) mg/dL Calcium (8.4-10.2) mg/dL 11/08/22 11/08/22 11/08/22 Range/Units 06:09 06:09 11:08 RBC 3.23 L (4.30-5.90) m/uL Hgb 10.3 L (13.0-17.5) gm/dL Hct 30.1 L (39.0-53.0) % Lymphocytes # 0.6 L (1.0-4.8) k/uL Sodium 136 L (137-145) mmol/L Carbon Dioxide 18 L (22-30) mmol/L POC Glucose (mg/dL) 173 H (70-110) mg/dL Calcium 7.7 L (8.4-10.2) mg/dL Microbiology - Last 24 Hours (Table) 11/06/22 17:57 Gram Stain - Preliminary Foot - Right Tissue Culture - Preliminary Group D Enterococcus 11/04/22 16:15 Blood Culture - Preliminary Blood 11/04/22 16:00 Blood Culture - Preliminary Blood 11/05/22 13:50 Gram Stain - Preliminary Foot - Right Wound Culture - Preliminary Gram Neg Bacilli Assessment and Plan Assessment: Non-STEMI Right foot ulcer infection status post debridement Charcot joint of the right foot Stage IV prostate cancer Coronary artery disease with previous CABG Diabetes Plan: From cardiology's perspective medications were reviewed and will continue the same. At this time he is not a candidate for aggressive cardiac workup. He will follow-up as an outpatient with Dr. Novak following discharge. Continue to follow the patient and provide further recommendations accordingly. TRANSACTION PROCESSOR note has been reviewed, I agree with a documented findings and plan of care. Patient was seen and examined.
[2022-11-08 16:11] LABS: Glucose,Whole Blood 202 mg/dL (70-110)
[2022-11-08 20:27] LABS: Glucose,Whole Blood 222 mg/dL (70-110)
[2022-11-08] MEDS: TEMAZEPAM 15 MG CAP PO SCH (20:39)
--- NOTE | 2022-11-08 21:45 | PN ---
PROGRESS NOTE DATE OF SERVICE: 11/08/2022 SUBJECTIVE: This is a 67-year-old gentleman, who is admitted with Charcot foot and infected wound, had a debridement. No chest pain. No palpitations. No fever. OBJECTIVE: VITAL SIGNS: Pulse is 55, blood pressure 130/76, respiratory rate 16. HEENT: Conjunctivae normal. NECK: No JVD. CARDIOVASCULAR: S1, S2. RESPIRATIONS: Breath sounds diminished at the bases. ABDOMEN: Soft. LEGS: Status post debridement. LABORATORY DATA: Sodium 136. Rest of the labs are noted. ASSESSMENT: 1. Acute right foot diabetic ulcer with sepsis present on admission, status post debridement and excision of the right foot Charcot foot. 2. Osteomyelitis, ruled out. 3. Troponin 3.9 with possible acute oxt-SX-kqngwgd-elevation myocardial infarction, on medical treatment per Cardiology. 4. Diabetes mellitus, type 2. 5. History of coronary artery disease. 6. Hypertension. 7. Multiple medical issues. RECOMMENDATIONS: Recommended to continue current management and continue symptomatic treatment. Continue with antiplatelet agents. Continue with beta blockers. Continue with antibiotics. Repeat labs in the morning. Prognosis guarded because of multiple complex medical conditions. Follow closely with multiple consultants. Further recommendations to follow. MMODL / IJN: [id number] /
[2022-11-09] MEDS: VANCOMYCIN 1,500 MG in SODIUM CHLORIDE 0.9% 500 ML 500 ML IVPB SCH ×2 (00:36→20:38)
[2022-11-09] MEDS: HYDROmorphone 1 MG/ML 1 ML SYRINGE IVP PRN ×7 (00:37→23:31)
[2022-11-09] MEDS: CEFEPIME 2 GM in SODIUM CHLORIDE 0.9% 100 ML IVPB SCH ×4 (00:37→23:30)
[2022-11-09 05:19] LABS: African American GFR (CKD) 70 (>60 ml/min/1.73 sqM); Anion Gap 6 mmol/L; Blood Urea Nitrogen 17 mg/dL (9-20); Calcium 7.3 mg/dL (8.4-10.2); Carbon Dioxide 21 mmol/L (22-30); Chloride 107 mmol/L (98-107); Glucose 222 mg/dL (74-99); Non-African American GFR(CKD) 60 (>60 ml/min/1.73 sqM); Potassium 4.2 mmol/L (3.5-5.1); Sodium 134 mmol/L (137-145)
[2022-11-09 05:39] LABS: Glucose,Whole Blood 254 mg/dL (70-110)
[2022-11-09] MEDS: oxyCODONE-APAP 10-325MG 1 EACH TAB PO PRN ×3 (06:00→22:00)
[2022-11-09] MEDS: INSULIN ASPART (NovoLOG) 100 UNIT/ML VIAL SQ SCH ×4 (06:01→22:00)
[2022-11-09] MEDS: KETOROLAC 15 MG/ML 1 ML VIAL IVP PRN (09:10)
[2022-11-09] MEDS: ATORVASTATIN 40 MG TAB PO SCH (09:12)
[2022-11-09] MEDS: metroNIDAZOLE 500 MG TAB PO SCH ×3 (09:12→21:59)
[2022-11-09] MEDS: CLOPIDOGREL 75 MG TAB PO SCH (09:12)
[2022-11-09] MEDS: GABAPENTIN 300 MG CAP PO SCH ×3 (09:12→21:59)
[2022-11-09] MEDS: glipiZIDE 10 MG TAB PO SCH ×2 (09:13→21:59)
[2022-11-09] MEDS: ASPIRIN 81 MG PO SCH (09:13)
[2022-11-09] MEDS: NUBEQA PO SCH ×2 (09:13→22:00)
[2022-11-09] MEDS: PANTOPRAZOLE 40 MG/10 ML VIAL IV SCH (09:14)
[2022-11-09] MEDS: FLUTICASONE 50MCG/SPRAY NASAL 16GM EA NOSTRIL SCH (09:17)
[2022-11-09 09:55] LABS: Basophils # (A) 0.05 X 10*3/uL (0.00-0.10); Basophils % (A) 0.9 %; Eosinophils # (A) 0.15 X 10*3/uL (0.04-0.35); Eosinophils % (A) 2.6 %; HCT 26.6 % (39.6-50.0); HGB 8.3 d/dL (12.0-15.0); Lymphocytes # (A) 0.75 X 10*3/uL (0.90-5.00); MCH 29.4 pg (27.0-32.0); MCHC 31.2 d/dL (32.0-37.0); MCV 94.3 FL (80.0-97.0); Mean Platelet Volume 10.6 FL (9.5-12.2); Monocytes # (A) 0.33 X 10*3/uL (0.20-1.00); Monocytes % (A) 5.7 %; NRBC Per 100 WBC 0.02 X 10*3/uL (0.00-0.01); Neutrophils % (A) 76.1 %; Platelet Count 163 X 10*3/uL (140-440); RBC 2.82 X 10*6/uL (4.40-5.60); RDW 14.4 % (11.5-14.5); WBC 5.78 X 10*3/uL (4.50-10.00)
[2022-11-09] MEDS ORDERED: VANCOMYCIN TROUGH DUE 1 EACH MISC MISCELLANE ONE (11:00)
[2022-11-09] MEDS: METOPROLOL TARTRATE 25 MG TAB PO SCH (11:20)
--- NOTE | 2022-11-09 11:51 | P.PN ---
Subjective Progress Note Date: 11/09/22 The patient is a 67-year-old male with known history of CAD, status post CABG in April 2019, he received a MCRAE to the LAD, left radial to the first OM, SVG to the second OM and SVG to the RCA, he has a known history of May Thurner syndrome status post stenting of bilateral iliac vein, history of diabetes, hypertension, hyperlipidemia and chronic tobacco use and a prior history of stroke who presents with symptoms of not feeling well but without any symptoms of chest discomfort, dyspnea or dizziness. He has stage IV prostate cancer, received radiation therapy and is receiving hormonal therapy, followed by Dr. Moran. He is limited in his physical activity he has Charcot foot on the right side, he had an ulcer on the right plantar aspect. He has peripheral edema for the last few months, no clear PND or orthopnea. He denies any dizziness or palpitations or syncope. He has no history of malignant arrhythmia. In the emergency room he was noted to have a troponin of 6. In the past when he had ischemic events he had associated chest discomfort. He has mild cough but no change in his veronica thing. He had no fever at home. His EKG today showed no acute ST segment changes. His coronary risk factors are positive for hypertension, hyperlipidemia, diabetes and chronic tobacco use. He had Covid infection recently but is negative at this point Medications: Glucotrol, Norvasc 2.5 mg daily, Plavix, Lipitor 40 mg daily, aspirin, Jardiance, Neurontin, trazodone, Trulicity He underwent right foot ulcer debridement 11/06/2022. Echocardiogram revealed ejection fraction of 55-60% with pulmonary hypertension and mild left atrial enlargement. 11/08/22 Patient was seen and examined resting comfortably in bed. He is overall feeling fairly well. His only complaint is neuropathic pain in his feet and hands. He's had no chest discomfort. His breathing is stable. Denies any palpitations, dizziness or lightheadedness he has mild edema but denies any orthopnea or PND. His vital signs are stable and he's afebrile. 11/09/2022 The patient was seen and examined resting in bed. He verbalizes feeling tired today. Continues to complain of significant neuropathic pain in his hands and feet. Labs today show hemoglobin 8.3, down from 10.3 yesterday. He is bradycardic with heart rate in the 40s. Blood pressure is 120s-140s systolic. He denies complaints of chest discomfort. Objective - Vital Signs Vital signs: Vital Signs Temp 97.4 F L 11/09/22 08:29 Pulse 45 L 11/09/22 11:03 Resp 18 11/09/22 08:29 BP 145/71 11/09/22 11:03 Pulse Ox 99 11/09/22 11:03 FiO2 Intake & Output 11/08/22 11/09/22 11/09/22 18:59 06:59 18:59 Output Total 200 100 Balance -200 -100 Output: Urine 200 100 Other: Voiding Method External Catheter Urinal Urinal # Voids 1 2 1 - Exam GENERAL: Well-developed in no acute distress. NECK: Supple. No JVD or thyromegaly LUNGS: Respirations even and unlabored. Lungs essentially clear to auscultation bilaterally. HEART: Regular rate and rhythm. S1 and S2 heard. EXTREMITIES: Normal range of motion. No clubbing or cyanosis. Trace lower extremity edema. Dressing and joseph wrap intact to the right foot - Labs CBC & Chem 7: 11/09/22 04:29 11/09/22 04:29 Labs: Abnormal Lab Results - Last 24 Hours (Table) 11/08/22 11/08/22 11/09/22 Range/Units 16:05 20:25 04:29 RBC (4.40-5.60) X 10*6/uL Hgb (12.0-15.0) d/dL Hct (39.6-50.0) % MCHC (32.0-37.0) d/dL Lymphocytes # (0.90-5.00) X 10*3/uL NRBC/100 WBC Diff (0.00-0.01) X 10*3/uL Sodium 134 L (137-145) mmol/L Carbon Dioxide 21 L (22-30) mmol/L Glucose 222 H (74-99) mg/dL POC Glucose (mg/dL) 202 H 222 H (70-110) mg/dL Calcium 7.3 L (8.4-10.2) mg/dL 11/09/22 11/09/22 Range/Units 04:29 05:37 RBC 2.82 L (4.40-5.60) X 10*6/uL Hgb 8.3 L (12.0-15.0) d/dL Hct 26.6 L (39.6-50.0) % MCHC 31.2 L (32.0-37.0) d/dL Lymphocytes # 0.75 L (0.90-5.00) X 10*3/uL NRBC/100 WBC Diff 0.02 H (0.00-0.01) X 10*3/uL Sodium (137-145) mmol/L Carbon Dioxide (22-30) mmol/L Glucose (74-99) mg/dL POC Glucose (mg/dL) 254 H (70-110) mg/dL Calcium (8.4-10.2) mg/dL Microbiology - Last 24 Hours (Table) 11/05/22 13:50 Gram Stain - Final Foot - Right Wound Culture - Final Serratia marcescens Enterococcus faecalis Alpha Hemolytic Streptococcus 11/05/22 13:50 Anaerobic Culture - Final Foot - Right 11/06/22 17:57 Gram Stain - Preliminary Foot - Right Tissue Culture - Preliminary Group D Enterococcus Assessment and Plan Assessment: Non-STEMI Right foot ulcer infection status post debridement Charcot joint of the right foot Stage IV prostate cancer Coronary artery disease with previous CABG Diabetes Plan: From cardiology's perspective medications were reviewed we will switch from metoprolol to carvedilol 3.125 mg BID. At this time he is not a candidate for aggressive cardiac workup. He will follow-up as an outpatient with Dr. Novak following discharge. Continue to follow the patient and provide further recommendations accordingly. NUCLEAR PHYSICIST note has been reviewed, I agree with a documented findings and plan of care. Patient was seen and examined.
[2022-11-09 11:53] LABS: Glucose,Whole Blood 217 mg/dL (70-110)
[2022-11-09 17:01] LABS: Glucose,Whole Blood 192 mg/dL (70-110)
[2022-11-09] MEDS: carvediloL 3.125 MG TAB PO SCH (17:31)
[2022-11-09] MEDS: CALCIUM CARB-VIT D 500 MG-5 MCG TAB PO SCH (17:31)
--- NOTE | 2022-11-09 20:22 | P.PN ---
Subjective Progress Note Date: 11/08/22 Principal diagnosis: Right diabetic foot infection Patient is a 67-year old male with a past medical history significant for diabetes mellitus the patient did have right Charcot deformity history of prostate cancer coronary disease presenting to the hospital for evaluation of feeling weak, patient was noticed to have infected callus on the plantar aspect of the right foot with draining pus CT was suggestive of possible abscess. Patient is status post I&D of the right foot wound which was extended down to the wound per operative report on 11/06/2022 on today's evaluation that is 11/08/2022 the patient remains to be afebrile the patient is breathing comfortably on room air no chest pain no shortness of breath or cough no abdominal pain and no diarrhea denies pain to the right foot plantar wound area Objective - Vital Signs Vital signs: Vital Signs Temp 97.7 F 11/08/22 07:11 Pulse 61 11/08/22 09:50 Resp 16 11/08/22 07:11 BP 136/73 11/08/22 07:11 Pulse Ox 99 11/08/22 07:11 FiO2 Intake & Output 11/07/22 11/08/22 11/08/22 18:59 06:59 18:59 Intake Total 222 Output Total 150 500 Balance 72 -500 Weight 98 kg Intake: Oral 222 Output: Urine 150 500 Other: Voiding Method External Catheter External Catheter External Catheter # Voids 1 - Exam GENERAL DESCRIPTION: An elderly male lying in bed in no distress RESPIRATORY SYSTEM: Unlabored breathing , decreased breath sounds at bases HEART: S1 S2 regular rate and rhythm , ABDOMEN: Soft , no tenderness EXTREMITIES: Right foot is currently dressed - Labs CBC & Chem 7: 11/09/22 04:29 11/09/22 04:29 Labs: Abnormal Lab Results - Last 24 Hours (Table) 11/07/22 11/07/22 11/08/22 Range/Units 16:36 20:17 05:25 RBC (4.30-5.90) m/uL Hgb (13.0-17.5) gm/dL Hct (39.0-53.0) % Lymphocytes # (1.0-4.8) k/uL Sodium (137-145) mmol/L Carbon Dioxide (22-30) mmol/L POC Glucose (mg/dL) 176 H 123 H 63 L (70-110) mg/dL Calcium (8.4-10.2) mg/dL 11/08/22 11/08/22 11/08/22 Range/Units 06:09 06:09 11:08 RBC 3.23 L (4.30-5.90) m/uL Hgb 10.3 L (13.0-17.5) gm/dL Hct 30.1 L (39.0-53.0) % Lymphocytes # 0.6 L (1.0-4.8) k/uL Sodium 136 L (137-145) mmol/L Carbon Dioxide 18 L (22-30) mmol/L POC Glucose (mg/dL) 173 H (70-110) mg/dL Calcium 7.7 L (8.4-10.2) mg/dL Microbiology - Last 24 Hours (Table) 11/06/22 17:57 Gram Stain - Preliminary Foot - Right Tissue Culture - Preliminary Group D Enterococcus 11/04/22 16:15 Blood Culture - Preliminary Blood 11/04/22 16:00 Blood Culture - Preliminary Blood 11/05/22 13:50 Gram Stain - Preliminary Foot - Right Wound Culture - Preliminary Gram Neg Bacilli Assessment and Plan (1) Foot osteomyelitis, right Current Visit: Yes Status: Acute Code(s): M86.9 - OSTEOMYELITIS, UNSPECIFIED SNOMED Code(s): 6186267145584160 (2) Diabetic foot ulcer Current Visit: Yes Status: Acute Priority: High Code(s): E11.621 - TYPE 2 DIABETES MELLITUS WITH FOOT ULCER; L97.509 - NON-PRESSURE CHRONIC ULCER OTH PRT UNSP FOOT W UNSP SEVERITY SNOMED Code(s): 116637051 (3) Foot abscess, right Current Visit: Yes Status: Acute Code(s): L02.611 - CUTANEOUS ABSCESS OF RIGHT FOOT SNOMED Code(s): 57486963388372708 Plan: 1patient presented hospital with right diabetic foot infection in this patient who did have a evidence of Charcot deformity to the right foot he did have a callus on the plantar aspect and a wound that was draining purulent material with foul-smelling we will need to cover for the polymicrobial natalie usually associated with a diabetic foot infection and need to rule out deep abscess and underlying osteomyelitis. 2patient with a penicillin allergy that would limit the number of antibiotics safe to use 3 CT of the right foot to make sure suggestive fluid collection but no evidence of any bony destruction 4 patient is status post drainage of right foot abscess and concerning for infection tracking all the way down to the bone suspicious for clinical osteomyelitis acute- 4 Local cultures are currently growing Enterococcus and gram-negative with ID sensitivities pending we will continue patient on combination of vancomycin cefepime and Flagyl while waiting for deep cultures to finalize
--- NOTE | 2022-11-09 20:25 | P.PN ---
Subjective Progress Note Date: 11/09/22 Principal diagnosis: Right diabetic foot infection Patient is a 67-year old male with a past medical history significant for diabetes mellitus the patient did have right Charcot deformity history of prostate cancer coronary disease presenting to the hospital for evaluation of feeling weak, patient was noticed to have infected callus on the plantar aspect of the right foot with draining pus CT was suggestive of possible abscess. Patient is status post I&D of the right foot wound which was extended down to the wound per operative report on 11/06/2022 on today's evaluation that is 11/09/2022 patient continues to be afebrile, patient is breathing comfortably on room air patient denies having any chest pain shortness of breath or cough no abdominal pain or any worsening pain to the right foot plantar wound area Objective - Vital Signs Vital signs: Vital Signs Temp 97.4 F L 11/09/22 08:29 Pulse 45 L 11/09/22 08:29 Resp 18 11/09/22 08:29 BP 138/69 11/09/22 08:29 Pulse Ox 100 11/09/22 08:29 FiO2 Intake & Output 11/08/22 11/09/22 11/09/22 18:59 06:59 18:59 Output Total 200 100 Balance -200 -100 Output: Urine 200 100 Other: Voiding Method External Catheter Urinal # Voids 1 2 1 - Exam GENERAL DESCRIPTION: An elderly male lying in bed in no distress RESPIRATORY SYSTEM: Unlabored breathing , decreased breath sounds at bases HEART: S1 S2 regular rate and rhythm , ABDOMEN: Soft , no tenderness EXTREMITIES: Right foot plantar wound is deep did have minimal slough tissue no foul-smelling drainage - Labs CBC & Chem 7: 11/09/22 04:29 11/09/22 04:29 Labs: Abnormal Lab Results - Last 24 Hours (Table) 11/08/22 11/08/22 11/08/22 Range/Units 11:08 16:05 20:25 RBC (4.40-5.60) X 10*6/uL Hgb (12.0-15.0) d/dL Hct (39.6-50.0) % MCHC (32.0-37.0) d/dL Lymphocytes # (0.90-5.00) X 10*3/uL NRBC/100 WBC Diff (0.00-0.01) X 10*3/uL Sodium (137-145) mmol/L Carbon Dioxide (22-30) mmol/L Glucose (74-99) mg/dL POC Glucose (mg/dL) 173 H 202 H 222 H (70-110) mg/dL Calcium (8.4-10.2) mg/dL 11/09/22 11/09/22 11/09/22 Range/Units 04:29 04:29 05:37 RBC 2.82 L (4.40-5.60) X 10*6/uL Hgb 8.3 L (12.0-15.0) d/dL Hct 26.6 L (39.6-50.0) % MCHC 31.2 L (32.0-37.0) d/dL Lymphocytes # 0.75 L (0.90-5.00) X 10*3/uL NRBC/100 WBC Diff 0.02 H (0.00-0.01) X 10*3/uL Sodium 134 L (137-145) mmol/L Carbon Dioxide 21 L (22-30) mmol/L Glucose 222 H (74-99) mg/dL POC Glucose (mg/dL) 254 H (70-110) mg/dL Calcium 7.3 L (8.4-10.2) mg/dL Microbiology - Last 24 Hours (Table) 11/05/22 13:50 Gram Stain - Final Foot - Right Wound Culture - Final Serratia marcescens Enterococcus faecalis Alpha Hemolytic Streptococcus 11/05/22 13:50 Anaerobic Culture - Final Foot - Right 11/06/22 17:57 Gram Stain - Preliminary Foot - Right Tissue Culture - Preliminary Group D Enterococcus Assessment and Plan (1) Foot osteomyelitis, right Current Visit: Yes Status: Acute Code(s): M86.9 - OSTEOMYELITIS, UNSPECIFIED SNOMED Code(s): 3121376907376961 (2) Diabetic foot ulcer Current Visit: Yes Status: Acute Priority: High Code(s): E11.621 - TYPE 2 DIABETES MELLITUS WITH FOOT ULCER; L97.509 - NON-PRESSURE CHRONIC ULCER OTH PRT UNSP FOOT W UNSP SEVERITY SNOMED Code(s): 381742313 (3) Foot abscess, right Current Visit: Yes Status: Acute Code(s): L02.611 - CUTANEOUS ABSCESS OF RIGHT FOOT SNOMED Code(s): 27161441091595315 Plan: 1patient presented hospital with right diabetic foot infection in this patient who did have a evidence of Charcot deformity to the right foot he did have a callus on the plantar aspect and a wound that was draining purulent material with foul-smelling we will need to cover for the polymicrobial natalie usually associated with a diabetic foot infection and need to rule out deep abscess and underlying osteomyelitis. 2patient with a penicillin allergy that would limit the number of antibiotics safe to use 3 CT of the right foot to make sure suggestive fluid collection but no evidence of any bony destruction 4 patient is status post drainage of right foot abscess and concerning for infection tracking all the way down to the bone suspicious for clinical osteomy elitis acute- 4 Local cultures are currently growing Enterococcus Alphahemolytic Streptococcus and Serratia marcescens for the patient is covered with vancomycin cefepime and Flagyl because of his penicillin allergy we will order PICC line for outpatient IV antibiotic therapy, local wound care was switched over to Medihoney followed by moist dressing change daily patient did have multiple questions concerns were answered Time with Patient: Less than 30
[2022-11-09 20:58] LABS: Glucose,Whole Blood 301 mg/dL (70-110)
[2022-11-09] MEDS: TEMAZEPAM 15 MG CAP PO SCH (22:00)
--- NOTE | 2022-11-10 03:32 | PN ---
PROGRESS NOTE DATE OF SERVICE: 11/09/2022 SUBJECTIVE: This is a 67-year-old gentleman who was admitted with acute right foot cellulitis, also had Charcot foot. The patient had debridement. No chest pain. No palpitation. OBJECTIVE: VITAL SIGNS: The patient has some bradycardia. Pulse 45, blood pressure 130/69, respirations 18. CHEST: Clear to auscultation. CARDIOVASCULAR: S1, S2. ABDOMEN: Soft. EXTREMITIES: Leg ulcer present. LABORATORY DATA: Noted calcium 7.3. ASSESSMENT: 1. Acute right foot diabetic ulcer with sepsis present on admission, status post debridement, excision of right foot Charcot foot. 2. Osteomyelitis, ruled out. 3. Troponin 3.9 with possible acute ouk-ZD-crsgecg-elevation myocardial infarction, on medical treatment per Cardiology. 4. Diabetes mellitus, type 2. 5. Hypocalcemia. 6. History of CAD. 7. Hypertension. 8. Multiple medical issues. 9. Bradycardia. RECOMMENDATIONS: Recommend to continue current management. Continue the antibiotics. We will continue to monitor. Prognosis guarded. Further recommendations to follow. MMODL / IJN: [id number] /
[2022-11-10] MEDS: HYDROmorphone 1 MG/ML 1 ML SYRINGE IVP PRN ×5 (03:46→20:05)
[2022-11-10 06:02] LABS: Glucose,Whole Blood 247 mg/dL (70-110)
[2022-11-10] MEDS: oxyCODONE-APAP 10-325MG 1 EACH TAB PO PRN ×2 (06:23→12:16)
[2022-11-10] MEDS: carvediloL 3.125 MG TAB PO SCH ×2 (06:23→16:51)
[2022-11-10] MEDS: CALCIUM CARB-VIT D 500 MG-5 MCG TAB PO SCH ×3 (06:23→16:51)
[2022-11-10] MEDS: INSULIN ASPART (NovoLOG) 100 UNIT/ML VIAL SQ SCH ×4 (06:24→21:42)
[2022-11-10 07:03] LABS: ALT 21 U/L (4-49); AST 31 U/L (17-59); African American GFR (CKD) >90 (>60 ml/min/1.73 sqM); Albumin 2.7 g/dL (3.5-5.0); Albumin/Globulin Ratio 0.9; Alkaline Phosphatase 83 U/L (38-126); Anion Gap 9 mmol/L; Blood Urea Nitrogen 13 mg/dL (9-20); Calcium 7.4 mg/dL (8.4-10.2); Carbon Dioxide 16 mmol/L (22-30); Chloride 110 mmol/L (98-107); Glucose 221 mg/dL (74-99); Non-African American GFR(CKD) 89 (>60 ml/min/1.73 sqM); Potassium 4.2 mmol/L (3.5-5.1); Sodium 135 mmol/L (137-145); Total Bilirubin 0.7 mg/dL (0.2-1.3); Total Protein 5.7 g/dL (6.3-8.2)
[2022-11-10] MEDS: CEFEPIME 2 GM in SODIUM CHLORIDE 0.9% 100 ML IVPB SCH ×2 (07:44→16:44)
[2022-11-10] MEDS: PANTOPRAZOLE 40 MG/10 ML VIAL IV SCH (07:45)
[2022-11-10] MEDS: metroNIDAZOLE 500 MG TAB PO SCH ×3 (09:05→21:41)
[2022-11-10] MEDS: ATORVASTATIN 40 MG TAB PO SCH (09:05)
[2022-11-10] MEDS: ASPIRIN 81 MG PO SCH (09:05)
[2022-11-10] MEDS: glipiZIDE 10 MG TAB PO SCH ×2 (09:06→21:41)
[2022-11-10] MEDS: GABAPENTIN 300 MG CAP PO SCH ×3 (09:06→21:41)
[2022-11-10] MEDS: CLOPIDOGREL 75 MG TAB PO SCH (09:06)
[2022-11-10] MEDS: NUBEQA PO SCH ×2 (09:07→21:42)
[2022-11-10] MEDS: FLUTICASONE 50MCG/SPRAY NASAL 16GM EA NOSTRIL SCH (09:09)
[2022-11-10] MEDS ORDERED: LIDOCAINE 1% INJ 10MG/ML (5 ML VIAL-PF) SQ ONE (10:05)
--- NOTE | 2022-11-10 11:16 | IR ---
PICC LINE PLACEMENT: HISTORY: Infection requiring long-term antibiotic therapy PROCEDURE: Ultrasound and fluoroscopic guidance of PICC line placement. COMPLICATIONS: None ANESTHESIA: 1. 1% Lidocaine locally. FINDINGS/TECHNIQUE: The procedure was explained to the patient. The risks, complications, benefits and alternatives were discussed and any questions were answered. Informed consent was obtained. The patient was placed supine on the fluoroscopic table and prepped and draped in the usual sterile fash ion. Utilizing a 21 gauge needle and sonographic and fluoroscopic guidance, access in the left basi lic vein was achieved and there is placement of a 0.018 guidewire. The vein is patent. A 5-Fr sosa th was placed over the guidewire. The guidewire and dilator were removed and a 5-F. Double lumen PIC C line was placed through the sheath with the tip at the level of the SVC. The sheath was removed, t he catheter was flushed and sutured into position. The patient was stable throughout the procedure a nd remained stable upon discharge from the Department of Radiology. The vein puncture was patent under ultrasound. A nuñez scale image was obtained to document patency of the vein punctured. All elements of the maximal barrier technique were utilized. FLUOROSCOPY TIME: DAP of 0.375 IMPRESSION: Successful PICC double lumen line placement under ultrasound and fluoroscopic guidance.
[2022-11-10 11:48] LABS: Glucose,Whole Blood 305 mg/dL (70-110)
[2022-11-10 11:54] LABS: Basophils # (A) 0.09 X 10*3/uL (0.00-0.10); Basophils % (A) 1.5 %; Eosinophils # (A) 0.19 X 10*3/uL (0.04-0.35); Eosinophils % (A) 3.3 %; HCT 31.8 % (39.6-50.0); HGB 9.6 d/dL (12.0-15.0); Lymphocytes # (A) 0.71 X 10*3/uL (0.90-5.00); Lymphocytes % (A) 12.2 %; MCH 29.4 pg (27.0-32.0); MCHC 30.2 d/dL (32.0-37.0); MCV 97.5 FL (80.0-97.0); Monocytes # (A) 0.33 X 10*3/uL (0.20-1.00); Monocytes % (A) 5.7 %; NRBC Per 100 WBC 0.02 X 10*3/uL (0.00-0.01); Neutrophils # (A) 4.25 X 10*3/uL (1.80-7.70); Neutrophils % (A) 72.8 %; Platelet Count 154 X 10*3/uL (140-440); RBC 3.26 X 10*6/uL (4.40-5.60); RDW 15.1 % (11.5-14.5); WBC 5.83 X 10*3/uL (4.50-10.00)
[2022-11-10] MEDS: VANCOMYCIN 1,500 MG in SODIUM CHLORIDE 0.9% 500 ML 500 ML IVPB SCH (12:05)
--- NOTE | 2022-11-10 13:00 | P.PN ---
Progress Note - Text Patient was seen today this patient has a Charcot foot foot and a came with the infected wound plantar space aspect of the foot we did the debridement deep culture culture came back as a Enterococcus faecalis and alphahemolytic streptococcus we've been using VAC Aquacel silver today we have changed to medihoney gel dressing has been changed patient is going for PICC line for long- term antibiotic we will change her dressing tomorrow if patient goes home we'll arrange for follow-up in the wound clinic
[2022-11-10] MEDS ORDERED: FUROSEMIDE 10 MG/ML 4 ML VIAL IV STA (13:33)
--- NOTE | 2022-11-10 14:32 | P.PN ---
Subjective Progress Note Date: 11/10/22 HISTORY OF PRESENT ILLNESS: The patient is a 67-year-old male with known history of CAD, status post CABG in April 2019, he received a MCRAE to the LAD, left radial to the first OM, SVG to the second OM and SVG to the RCA, he has a known history of May Thurner syndrome status post stenting of bilateral iliac vein, history of diabetes, hypertension, hyperlipidemia and chronic tobacco use and a prior history of stroke who presents with symptoms of not feeling well but without any symptoms of chest discomfort, dyspnea or dizziness. He has stage IV prostate cancer, received ra diation therapy and is receiving hormonal therapy, followed by Dr. Moran. He is limited in his physical activity he has Charcot tooth worked on the right side, he had an ulcer on the right plantar aspect. He has peripheral edema for the last few months, no clear PND or orthopnea. He denies any dizziness or palpitations or syncope. He has no history of malignant arrhythmia. In the emergency room he was noted to have a troponin of 6. In the past and he had ischemic events he had associated chest discomfort. He has mild cough but no change in his breathing. He had no fever at home. His echocardiogram in 2018 showed an ejection fraction of 50-55%. His EKG today showed no acute ST segment changes. His corneas factors are positive for hypertension, hyperlipidemia, diabetes and chronic tobacco use. He had Covid infection recently but is negative at this point Medications: Glucotrol, Norvasc 2.5 mg daily, Plavix, Lipitor 40 mg daily, aspirin, Jardiance, Neurontin, trazodone, Trulicity November 05: The patient feels better today, he denies any chest discomfort, dizziness or palpitations. His troponin is trending down. He denies any nausea or vomiting. He has no cough or fever. He continues to be in sinus mechanism. He had the foot x-ray that showed evidence consistent with Charcot neuroarthropathy. His echocardiogram is pending 11/06/2022 Patient examined this morning at the bedside. Patient currently denies chest pain or pressure. Patient denies shortness of breath. He states that he feels tired and had a rough night. Patient was evaluated by vascular surgery and is scheduled for right foot debridement tomorrow 11/07/2022 Patient examined this morning. Patient is sitting up in the chair. Patient denies chest pain or pressure. He denies shortness of breath. Patient underwent right foot debridement yesterday with vascular surgery. Patient continues to report pain of his bilateral Kim remains which he states is mostly due to his neuropathy. Echocardiogram completed revealing ejection fraction 55-60% with pulmonary hypertension and mild left atrial enlargement. 11/08/22 Patient was seen and examined resting temporally embedded. He is overall feeling fairly well. His only complaint is neuropathic pain in his feet and hands. He's had no chest discomfort. His breathing is stable. Denies any palpitations, dizziness or lightheadedness he has mild edema but denies any orthopnea or PND. His vital signs are stable and he's afebrile. 11/09/2022 The patient was seen and examined resting in bed. He verbalizes feeling tired today. Continues to complain of significant neuropathic pain in his hands and feet. Labs today show hemoglobin 8.3, down from 10.3 yesterday. He is bradycardic with heart rate in the 40s. Blood pressure is 120s-140s systolic. He denies complaints of chest discomfort. 11/10/2022 Patient examined this afternoon at the bedside. Patient denies chest pain or pressure. He denies shortness of breath. He has been up ambulating to the bathroom without difficulty. Patient's vital signs are stable. Patient does have bilateral lower extremity edema upon examination. PHYSICAL EXAM: VITAL SIGNS: Reviewed. GENERAL: Well-developed in no acute distress. NECK: Supple. No JVD or thyromegaly LUNGS: Respirations even and unlabored. Lungs essentially clear to auscultation bilaterally. HEART: Regular rate and rhythm. S1 and S2 heard. EXTREMITIES: Normal range of motion. No clubbing or cyanosis. Peripheral pulses intact. 1-2+ pitting bilateral lower extremity edema ASSESSMENT: Non-STEMI Right foot infection status post right foot debridement Charcot joint of the right foot Stage IV prostate cancer Coronary artery disease with previous CABG Diabetes PLAN: Continue current cardiac medications Give Lasix 40mg X 1 dose now Patient is not a candidate for aggressive cardiac workup at this time due to acute issues Patient follow-up post discharge with Dr. Novak Further recommendations pending patient course Nurse practitioner note has been reviewed by physician. Signing provider agrees with the documented findings, assessment, and plan of care. Dr. Camarena addendum Patient was personally seen by me. The case was discussed in detail with the nurse practitioner who helped with the above documentation. I agree with this assess and plan. Objective - Vital Signs Vital signs: Vital Signs Temp 97.7 F 11/10/22 07:52 Pulse 52 L 11/10/22 09:24 Resp 19 11/10/22 07:52 BP 146/79 11/10/22 09:24 Pulse Ox 100 11/10/22 07:52 FiO2 Intake & Output 11/09/22 11/10/22 11/10/22 18:59 06:59 18:59 Intake Total 600 Output Total 575 900 Balance -575 -300 Intake: Intake, IV Titration 600 Amount Cefepime 2 gm In Sodium 100 Chloride 0.9% 100 ml @ 25 mls/hr IVPB Q8HR [facility] Rx# :[id number] Vancomycin 1,500 mg In 500 Sodium Chloride 0.9% 500 ml 500 ml @ 167 mls/hr IVPB Q12H [facility] Rx#: [id number] Output: Urine 575 900 Other: Voiding Method Urinal Urinal # Voids 2 - Labs CBC & Chem 7: 11/10/22 05:40 11/10/22 05:40 Labs: Abnormal Lab Results - Last 24 Hours (Table) 11/09/22 11/09/22 11/10/22 Range/Units 16:59 20:56 05:40 RBC (4.40-5.60) X 10*6/uL Hgb (12.0-15.0) d/dL Hct (39.6-50.0) % MCV (80.0-97.0) FL MCHC (32.0-37.0) d/dL RDW (11.5-14.5) % Lymphocytes # (0.90-5.00) X 10*3/uL NRBC/100 WBC Diff (0.00-0.01) X 10*3/uL Sodium 135 L (137-145) mmol/L Chloride 110 H (98-107) mmol/L Carbon Dioxide 16 L (22-30) mmol/L Glucose 221 H (74-99) mg/dL POC Glucose (mg/dL) 192 H 301 H (70-110) mg/dL Calcium 7.4 L (8.4-10.2) mg/dL Total Protein 5.7 L (6.3-8.2) g/dL Albumin 2.7 L (3.5-5.0) g/dL 11/10/22 11/10/22 11/10/22 Range/Units 05:40 06:01 11:47 RBC 3.26 L (4.40-5.60) X 10*6/uL Hgb 9.6 L (12.0-15.0) d/dL Hct 31.8 L (39.6-50.0) % MCV 97.5 H (80.0-97.0) FL MCHC 30.2 L (32.0-37.0) d/dL RDW 15.1 H (11.5-14.5) % Lymphocytes # 0.71 L (0.90-5.00) X 10*3/uL NRBC/100 WBC Diff 0.02 H (0.00-0.01) X 10*3/uL Sodium (137-145) mmol/L Chloride (98-107) mmol/L Carbon Dioxide (22-30) mmol/L Glucose (74-99) mg/dL POC Glucose (mg/dL) 247 H 305 H (70-110) mg/dL Calcium (8.4-10.2) mg/dL Total Protein (6.3-8.2) g/dL Albumin (3.5-5.0) g/dL Microbiology - Last 24 Hours (Table) 11/06/22 17:57 Anaerobic Culture - Final Foot - Right 11/04/22 16:15 Blood Culture - Final Blood 11/04/22 16:00 Blood Culture - Final Blood 11/06/22 17:57 Gram Stain - Final Foot - Right Tissue Culture - Final Enterococcus faecalis
[2022-11-10 16:32] LABS: Glucose,Whole Blood 183 mg/dL (70-110)
[2022-11-10 20:24] LABS: Glucose,Whole Blood 245 mg/dL (70-110)
[2022-11-10] MEDS: TEMAZEPAM 15 MG CAP PO SCH (21:41)
--- NOTE | 2022-11-10 22:39 | P.PN ---
Subjective Progress Note Date: 11/10/22 Principal diagnosis: Right diabetic foot infection Patient is a 67-year old male with a past medical history significant for diabetes mellitus the patient did have right Charcot deformity history of prostate cancer coronary disease presenting to the hospital for evaluation of feeling weak, patient was noticed to have infected callus on the plantar aspect of the right foot with draining pus CT was suggestive of possible abscess. Patient is status post I&D of the right foot wound which was extended down to the wound per operative report on 11/06/2022 on today's evaluation that is 11/10/2022 patient denies having any fever or any chills the patient is breathing comfortably no chest pain no shortness of breath or cough no abdominal pain and no diarrhea denies pain to the right foot plantar wound area Objective - Vital Signs Vital signs: Vital Signs Temp 97.7 F 11/10/22 07:52 Pulse 52 L 11/10/22 09:24 Resp 19 11/10/22 07:52 BP 146/79 11/10/22 09:24 Pulse Ox 100 11/10/22 07:52 FiO2 Intake & Output 11/09/22 11/10/22 11/10/22 18:59 06:59 18:59 Intake Total 600 Output Total 575 900 Balance -575 -300 Intake: Intake, IV Titration 600 Amount Cefepime 2 gm In Sodium 100 Chloride 0.9% 100 ml @ 25 mls/hr IVPB Q8HR ON LICENSE OF [facility] Rx# :[id number] Vancomycin 1,500 mg In 500 Sodium Chloride 0.9% 500 ml 500 ml @ 167 mls/hr IVPB Q12H [facility] Rx#: [id number] Output: Urine 575 900 Other: Voiding Method Urinal Urinal # Voids 2 - Exam GENERAL DESCRIPTION: An elderly male lying in bed in no distress RESPIRATORY SYSTEM: Unlabored breathing , decreased breath sounds at bases HEART: S1 S2 regular rate and rhythm , ABDOMEN: Soft , no tenderness EXTREMITIES: Right foot plantar wound is deep did have minimal slough tissue no foul-smelling drainage - Labs CBC & Chem 7: 11/10/22 05:40 11/10/22 05:40 Labs: Abnormal Lab Results - Last 24 Hours (Table) 11/09/22 11/09/22 11/10/22 Range/Units 16:59 20:56 05:40 RBC (4.40-5.60) X 10*6/uL Hgb (12.0-15.0) d/dL Hct (39.6-50.0) % MCV (80.0-97.0) FL MCHC (32.0-37.0) d/dL RDW (11.5-14.5) % Lymphocytes # (0.90-5.00) X 10*3/uL NRBC/100 WBC Diff (0.00-0.01) X 10*3/uL Sodium 135 L (137-145) mmol/L Chloride 110 H (98-107) mmol/L Carbon Dioxide 16 L (22-30) mmol/L Glucose 221 H (74-99) mg/dL POC Glucose (mg/dL) 192 H 301 H (70-110) mg/dL Calcium 7.4 L (8.4-10.2) mg/dL Total Protein 5.7 L (6.3-8.2) g/dL Albumin 2.7 L (3.5-5.0) g/dL 11/10/22 11/10/22 11/10/22 Range/Units 05:40 06:01 11:47 RBC 3.26 L (4.40-5.60) X 10*6/uL Hgb 9.6 L (12.0-15.0) d/dL Hct 31.8 L (39.6-50.0) % MCV 97.5 H (80.0-97.0) FL MCHC 30.2 L (32.0-37.0) d/dL RDW 15.1 H (11.5-14.5) % Lymphocytes # 0.71 L (0.90-5.00) X 10*3/uL NRBC/100 WBC Diff 0.02 H (0.00-0.01) X 10*3/uL Sodium (137-145) mmol/L Chloride (98-107) mmol/L Carbon Dioxide (22-30) mmol/L Glucose (74-99) mg/dL POC Glucose (mg/dL) 247 H 305 H (70-110) mg/dL Calcium (8.4-10.2) mg/dL Total Protein (6.3-8.2) g/dL Albumin (3.5-5.0) g/dL Microbiology - Last 24 Hours (Table) 11/06/22 17:57 Anaerobic Culture - Final Foot - Right 11/04/22 16:15 Blood Culture - Final Blood 11/04/22 16:00 Blood Culture - Final Blood 11/06/22 17:57 Gram Stain - Final Foot - Right Tissue Culture - Final Enterococcus faecalis Assessment and Plan (1) Foot osteomyelitis, right Current Visit: Yes Status: Acute Code(s): M86.9 - OSTEOMYELITIS, UNSPECIFIED SNOMED Code(s): 3482685765568224 (2) Diabetic foot ulcer Current Visit: Yes Status: Acute Priority: High Code(s): E11.621 - TYPE 2 DIABETES MELLITUS WITH FOOT ULCER; L97.509 - NON-PRESSURE CHRONIC ULCER OTH PRT UNSP FOOT W UNSP SEVERITY SNOMED Code(s): 876933424 (3) Foot abscess, right Current Visit: Yes Status: Acute Code(s): L02.611 - CUTANEOUS ABSCESS OF RIGHT FOOT SNOMED Code(s): 33136122101656734 Plan: 1patient presented hospital with right diabetic foot infection in this patient who did have a evidence of Charcot deformity to the right foot he did have a callus on the plantar aspect and a wound that was draining purulent material with foul-smelling we will need to cover for the polymicrobial natalie usually associated with a diabetic foot infection and need to rule out deep abscess and underlying osteomyelitis. 2patient with a penicillin allergy that would limit the number of antibiotics safe to use 3 CT of the right foot suggestive fluid collection but no evidence of any bony destruction 4 patient is status post drainage of right foot abscess and concerning for infection tracking all the way down to the bone suspicious for clinical osteomyelitis acute- 4 Local cultures are currently growing Enterococcus Alphahemolytic Streptococcus and Serratia marcescens for the patient is covered with vancomycin cefepime and Flagyl because of his penicillin allergy 5-Pt did got PICC line for outpatient IV antibiotic therapy, local wound care was switched over to Medihoney followed by moist dressing change daily Time with Patient: Less than 30
[2022-11-11] MEDS: CEFEPIME 2 GM in SODIUM CHLORIDE 0.9% 100 ML IVPB SCH ×2 (00:15→08:21)
[2022-11-11] MEDS: HYDROmorphone 1 MG/ML 1 ML SYRINGE IVP PRN ×2 (01:12→08:45)
[2022-11-11] MEDS: VANCOMYCIN 1,500 MG in SODIUM CHLORIDE 0.9% 500 ML 500 ML IVPB SCH (04:20)
[2022-11-11] MEDS: oxyCODONE-APAP 10-325MG 1 EACH TAB PO PRN (04:31)
[2022-11-11] MEDS: KETOROLAC 15 MG/ML 1 ML VIAL IVP PRN (04:32)
--- NOTE | 2022-11-11 05:53 | P.PN ---
Subjective Progress Note Date: 11/10/22 This is a 67-year-old male who was recently admitted with right foot infection with cellulitis also Charcot foot with vascular surgery and infectious disease following. Patient had surgical debridement with culture showing Serratia and maintained on IV antibiotics with infectious disease following closely. Patient to receive a PICC line today and arrange for outpatient antibiotics. Patient continues with local wound care and dressing changes with vascular surgery planning to reevaluate tomorrow. Blood sugars are elevated and would recommend Accu-Cheks before meals and at bedtime and continue with current regimen. Afebrile denies chest pain or shortness of breath. No nausea or vomiting and reports the tolerating diet. Patient plans on going home with home care in case management following making arrangements Review of systems: Constitutional: No reports of fatigue, fever, or chills Cardiovascular: No reports of chest pain or palpitations Respiratory: No reports of shortness of breath or cough GI: No reports of nausea, no reports of vomiting, no diarrhea : No reports of dysuria or retention Neurovascular: reports of generalized weakness All medications have been reviewed PHYSICAL EXAMINATION: GENERAL: The patient is alert and oriented x4, Well developed, well nourished. Obese HEENT: Pupils are round and equally reacting to light. EOMI. no scleral icterus. No conjunctival pallor. Normocephalic, atraumatic. No pharyngeal erythema. No thyromegaly. CARDIOVASCULAR: S1 and S2 muffled PULMONARY: diminished breath sounds bilaterally with no wheezing or rhonchi note d. ABDOMEN: soft. Nontender on exam. obese. non-distended, normoactive bowel sounds. No palpable organomegaly. MUSCULOSKELETAL: No joint swelling or deformity. EXTREMITIES: No cyanosis, clubbing, or pedal edema. Right foot currently surgically dressed and dry and intact NEUROLOGICAL: Gross neurological examination did not reveal any focal deficits. Diffuse weakness SKIN: No rashes. Assessment: Acute right foot diabetic ulcer with sepsis, present on admission status post debridement and excision of right foot Charcot foot Osteomyelitis, rule out Troponin 3.9 with possible acute nstemi, on medical treatment per cardiology Diabetes mellitus, type II, uncontrolled with hypoglycemia Hypocalcemia, improved History of coronary artery disease Hypertension history GI prophylaxis DVT prophylaxis Full code Plan: Recommend to continue with current medications and management vascular surgery and infectious disease following Patient has received a PICC line with plans for outpatient IV antibiotic therapy. Awaiting infectious disease recommendations on discharge antibiotics Homecare being arranged for IV antibiotic therapy as well as wound care Encouraged increased activity as tolerated Recommend continue monitoring Accu-Cheks before meals and at bedtime and will continue current regimen Possible discharge in the next 24-48 hours The impression and plan of care has been dictated by Bailey Malone, nurse practitioner as directed. Dr. Kamlesh MD I have performed a history and examination and MDM of this patient, discussed the same with the dictator, and agree with the dictator's assessment and plan as written ,documented as a scribe. Based on total visit time, I have performed more than 50% of the visit. Any additional findings or plans will be noted. Objective - Vital Signs Vital signs: Vital Signs Temp 97.7 F 11/10/22 07:52 Pulse 52 L 11/10/22 09:24 Resp 19 11/10/22 07:52 BP 146/79 11/10/22 09:24 Pulse Ox 100 11/10/22 07:52 FiO2 Intake & Output 11/09/22 11/10/22 11/10/22 18:59 06:59 18:59 Intake Total 600 Output Total 575 900 Balance -575 -300 Intake: Intake, IV Titration 600 Amount Cefepime 2 gm In Sodium 100 Chloride 0.9% 100 ml @ 25 mls/hr IVPB Q8HR RICK[facility] Rx# :[id number] Vancomycin 1,500 mg In 500 Sodium Chloride 0.9% 500 ml 500 ml @ 167 mls/hr IVPB Q12H RICKIE Rx#: [id number] Output: Urine 575 900 Other: Voiding Method Urinal Urinal # Voids 2 - Labs CBC & Chem 7: 11/10/22 05:40 11/10/22 05:40 Labs: Abnormal Lab Results - Last 24 Hours (Table) 11/09/22 11/09/22 11/09/22 Range/Units 11:52 16:59 20:56 Sodium (137-145) mmol/L Chloride (98-107) mmol/L Carbon Dioxide (22-30) mmol/L Glucose (74-99) mg/dL POC Glucose (mg/dL) 217 H 192 H 301 H (70-110) mg/dL Calcium (8.4-10.2) mg/dL Total Protein (6.3-8.2) g/dL Albumin (3.5-5.0) g/dL 11/10/22 11/10/22 Range/Units 05:40 06:01 Sodium 135 L (137-145) mmol/L Chloride 110 H (98-107) mmol/L Carbon Dioxide 16 L (22-30) mmol/L Glucose 221 H (74-99) mg/dL POC Glucose (mg/dL) 247 H (70-110) mg/dL Calcium 7.4 L (8.4-10.2) mg/dL Total Protein 5.7 L (6.3-8.2) g/dL Albumin 2.7 L (3.5-5.0) g/dL Microbiology - Last 24 Hours (Table) 11/04/22 16:15 Blood Culture - Final Blood 11/04/22 16:00 Blood Culture - Final Blood 11/06/22 17:57 Gram Stain - Final Foot - Right Tissue Culture - Final Enterococcus faecalis 11/05/22 13:50 Gram Stain - Final Foot - Right Wound Culture - Final Serratia marcescens Enterococcus faecalis Alpha Hemolytic Streptococcus
[2022-11-11 06:00] LABS: Glucose,Whole Blood 271 mg/dL (70-110)
[2022-11-11 06:51] LABS: African American GFR (CKD) >90 (>60 ml/min/1.73 sqM); Non-African American GFR(CKD) 81 (>60 ml/min/1.73 sqM)
[2022-11-11] MEDS: INSULIN ASPART (NovoLOG) 100 UNIT/ML VIAL SQ SCH ×2 (07:11→12:49)
[2022-11-11] MEDS: CALCIUM CARB-VIT D 500 MG-5 MCG TAB PO SCH ×2 (07:30→12:47)
[2022-11-11] MEDS: carvediloL 3.125 MG TAB PO SCH (07:30)
--- NOTE | 2022-11-11 08:46 | P.PN ---
Progress Note - Text 67-year-old diabetic male patient has a Charcot foot right foot patient came with the infected wound plantar right foot patient went for debridement and deep culture patient is an IV antibiotic under care of infectious disease we will change the dressing daily basis with the medihoney gel Plan is patient going home today patient will follow wound clinic Maryse on Thursday at 3:15 PM change the dressing daily medihoney gel patient has offloading shoes
[2022-11-11] MEDS ORDERED: COLLAGENASE 250 UNIT/GM OINTMENT 30 GM TUBE TOPICAL SCH (09:00)
[2022-11-11] MEDS: GABAPENTIN 300 MG CAP PO SCH (09:34)
[2022-11-11] MEDS: ASPIRIN 81 MG PO SCH (09:34)
[2022-11-11] MEDS: metroNIDAZOLE 500 MG TAB PO SCH (09:35)
[2022-11-11] MEDS: glipiZIDE 10 MG TAB PO SCH (09:35)
[2022-11-11] MEDS: CLOPIDOGREL 75 MG TAB PO SCH (09:41)
[2022-11-11] MEDS: ATORVASTATIN 40 MG TAB PO SCH (09:41)
[2022-11-11] MEDS: NUBEQA PO SCH (09:41)
[2022-11-11] MEDS: FLUTICASONE 50MCG/SPRAY NASAL 16GM EA NOSTRIL SCH (09:42)
[2022-11-11] MEDS: PANTOPRAZOLE 40 MG/10 ML VIAL IV SCH (10:23)
[2022-11-11 11:24] LABS: Glucose,Whole Blood 264 mg/dL (70-110)
[2022-11-11] MEDS ORDERED: FUROSEMIDE 40 MG TAB PO SCH (11:30)
[2022-11-11 11:32] VITALS: BMI 31.8
[2022-11-11 11:58] VITALS: RESP 16
--- NOTE | 2022-11-11 12:57 | P.PN ---
Subjective Progress Note Date: 11/11/22 HISTORY OF PRESENT ILLNESS: The patient is a 67-year-old male with known history of CAD, status post CABG in April 2019, he received a MCRAE to the LAD, left radial to the first OM, SVG to the second OM and SVG to the RCA, he has a known history of May Thurner syndrome status post stenting of bilateral iliac vein, history of diabetes, hypertension, hyperlipidemia and chronic tobacco use and a prior history of stroke who presents with symptoms of not feeling well but without any symptoms of chest discomfort, dyspnea or dizziness. He has stage IV prostate cancer, received ra diation therapy and is receiving hormonal therapy, followed by Dr. Moran. He is limited in his physical activity he has Charcot tooth worked on the right side, he had an ulcer on the right plantar aspect. He has peripheral edema for the last few months, no clear PND or orthopnea. He denies any dizziness or palpitations or syncope. He has no history of malignant arrhythmia. In the emergency room he was noted to have a troponin of 6. In the past and he had ischemic events he had associated chest discomfort. He has mild cough but no change in his breathing. He had no fever at home. His echocardiogram in 2018 showed an ejection fraction of 50-55%. His EKG today showed no acute ST segment changes. His corneas factors are positive for hypertension, hyperlipidemia, diabetes and chronic tobacco use. He had Covid infection recently but is negative at this point Medications: Glucotrol, Norvasc 2.5 mg daily, Plavix, Lipitor 40 mg daily, aspirin, Jardiance, Neurontin, trazodone, Trulicity November 05: The patient feels better today, he denies any chest discomfort, dizziness or palpitations. His troponin is trending down. He denies any nausea or vomiting. He has no cough or fever. He continues to be in sinus mechanism. He had the foot x-ray that showed evidence consistent with Charcot neuroarthropathy. His echocardiogram is pending 11/06/2022 Patient examined this morning at the bedside. Patient currently denies chest pain or pressure. Patient denies shortness of breath. He states that he feels tired and had a rough night. Patient was evaluated by vascular surgery and is scheduled for right foot debridement tomorrow 11/07/2022 Patient examined this morning. Patient is sitting up in the chair. Patient denies chest pain or pressure. He denies shortness of breath. Patient underwent right foot debridement yesterday with vascular surgery. Patient continues to report pain of his bilateral Kim remains which he states is mostly due to his neuropathy. Echocardiogram completed revealing ejection fraction 55-60% with pulmonary hypertension and mild left atrial enlargement. 11/08/22 Patient was seen and examined resting temporally embedded. He is overall feeling fairly well. His only complaint is neuropathic pain in his feet and hands. He's had no chest discomfort. His breathing is stable. Denies any palpitations, dizziness or lightheadedness he has mild edema but denies any orthopnea or PND. His vital signs are stable and he's afebrile. 11/09/2022 The patient was seen and examined resting in bed. He verbalizes feeling tired today. Continues to complain of significant neuropathic pain in his hands and feet. Labs today show hemoglobin 8.3, down from 10.3 yesterday. He is bradycardic with heart rate in the 40s. Blood pressure is 120s-140s systolic. He denies complaints of chest discomfort. 11/10/2022 Patient examined this afternoon at the bedside. Patient denies chest pain or pressure. He denies shortness of breath. He has been up ambulating to the bathroom without difficulty. Patient's vital signs are stable. Patient does have bilateral lower extremity edema upon examination. 11/11/2022 Patient examined this morning at the bedside. Patient denies chest pain or pressure. He denies shortness of breath. Patient received one time dose of IV Lasix yesterday with improvement in his lower extremity edema. The patient is hoping to be discharged home today. PHYSICAL EXAM: VITAL SIGNS: Reviewed. GENERAL: Well-developed in no acute distress. NECK: Supple. No JVD or thyromegaly LUNGS: Respirations even and unlabored. Lungs essentially clear to auscultation bilaterally. HEART: Regular rate and rhythm. S1 and S2 heard. EXTREMITIES: Normal range of motion. No clubbing or cyanosis. Peripheral pulses intact. 1+ bilateral lower extremity edema ASSESSMENT: Non-STEMI Right foot infection status post right foot debridement Charcot joint of the right foot Stage IV prostate cancer Coronary artery disease with previous CABG Diabetes PLAN: Continue current cardiac medications Begin oral Lasix 40 mg daily 5 days Patient is not a candidate for aggressive cardiac workup at this time due to acute issues Patient follow-up post discharge with Dr. Novak Patient is stable for discharge home today from a cardiac standpoint We will sign off. Please reconsult if needed. Nurse practitioner note has been reviewed by physician. Signing provider agrees with the documented findings, assessment, and plan of care. Dr. Camarena's Addendum Patient responded well to IV diuretics yesterday which was prescribed for significant lower extremity edema. I prescribed him Lasix 40 mg by mouth for 5 days. He will follow-up with Dr. novak outpatient for peripheral artery disease evaluation. I have personally seen and examined the patient. I have personally performed all the components of medical care documented above including formulating the assessment and plan. I have personally reviewed the relavant labs, imaging and other diagnostics. I have discussed this in detail with my [employer] MANAGER who has helped me with this documentation. I have carefully reviewed this document before finalizing. Total time spent reviewing medical chart, examining patient, counselling patient and documentation 45 mins Thank you for letting cardiology team participating in this patient's care. Dr. Pablo Camarena MD Cardiovascular Disease Objective - Vital Signs Vital signs: Vital Signs Temp 98.0 F 11/11/22 06:57 Pulse 57 L 11/11/22 06:57 Resp 16 11/11/22 08:20 BP 120/68 11/11/22 06:57 Pulse Ox 100 11/11/22 06:57 FiO2 Intake & Output 11/10/22 11/11/22 11/11/22 18:59 06:59 18:59 Intake Total 1020 Output Total 1000 Balance 1020 -1000 Weight 98 kg Intake: Intake, IV Titration 700 Amount Cefepime 2 gm In Sodium 200 Chloride 0.9% 100 ml @ 25 mls/hr IVPB Q8HR [facility] Rx# :[id number] Vancomycin 1,500 mg In 500 Sodium Chloride 0.9% 500 ml 500 ml @ 167 mls/hr IVPB Q16H [facility] Rx#: [id number] Oral 320 Output: Urine 1000 Other: Voiding Method Urinal # Voids 1 # Bowel Movements 1 - Labs CBC & Chem 7: 11/10/22 05:40 11/11/22 05:42 Labs: Abnormal Lab Results - Last 24 Hours (Table) 11/10/22 11/10/22 11/11/22 Range/Units 16:30 20:23 05:58 POC Glucose (mg/dL) 183 H 245 H 271 H (70-110) mg/dL 11/11/22 Range/Units 11:23 POC Glucose (mg/dL) 264 H (70-110) mg/dL Microbiology - Last 24 Hours (Table) 11/06/22 17:57 Anaerobic Culture - Final Foot - Right
[2022-11-11 14:30] VITALS: BP 131/73; PULSE 47; TEMP 97.9
--- NOTE | 2022-11-11 16:06 | P.PN ---
Subjective Progress Note Date: 11/11/22 Principal diagnosis: Right diabetic foot infection Patient is a 67-year old male with a past medical history significant for diabetes mellitus the patient did have right Charcot deformity history of prostate cancer coronary disease presenting to the hospital for evaluation of feeling weak, patient was noticed to have infected callus on the plantar aspect of the right foot with draining pus CT was suggestive of possible abscess. Patient is status post I&D of the right foot wound which was extended down to the wound per operative report on 11/06/2022 on today's evaluation that is 11/11/2022 patient remains to be febrile the patient is breathing comfortably on room air, the patient denies chest pain no shortness of breath or cough no abdominal pain and no diarrhea denies pain to the right foot plantar wound area Objective - Vital Signs Vital signs: Vital Signs Temp 98.0 F 11/11/22 06:57 Pulse 57 L 11/11/22 06:57 Resp 16 11/11/22 08:20 BP 120/68 11/11/22 06:57 Pulse Ox 100 11/11/22 06:57 FiO2 Intake & Output 11/10/22 11/11/22 11/11/22 18:59 06:59 18:59 Intake Total 1020 Output Total 1000 Balance 1020 -1000 Weight 98 kg Intake: Intake, IV Titration 700 Amount Cefepime 2 gm In Sodium 200 Chloride 0.9% 100 ml @ 25 mls/hr IVPB Q8HR [facility] Rx# :[id number] Vancomycin 1,500 mg In 500 Sodium Chloride 0.9% 500 ml 500 ml @ 167 mls/hr IVPB Q16H [facility] Rx#: [id number] Oral 320 Output: Urine 1000 Other: Voiding Method Urinal # Voids 1 # Bowel Movements 1 - Exam GENERAL DESCRIPTION: An elderly male lying in bed in no distress RESPIRATORY SYSTEM: Unlabored breathing , decreased breath sounds at bases HEART: S1 S2 regular rate and rhythm , ABDOMEN: Soft , no tenderness EXTREMITIES: Right foot plantar wound is currently dressed no drainage on the dressing - Labs CBC & Chem 7: 11/10/22 05:40 11/11/22 05:42 Labs: Abnormal Lab Results - Last 24 Hours (Table) 11/10/22 11/10/22 11/11/22 Range/Units 16:30 20:23 05:58 POC Glucose (mg/dL) 183 H 245 H 271 H (70-110) mg/dL 11/11/22 Range/Units 11:23 POC Glucose (mg/dL) 264 H (70-110) mg/dL Microbiology - Last 24 Hours (Table) 11/06/22 17:57 Anaerobic Culture - Final Foot - Right Assessment and Plan (1) Foot osteomyelitis, right Current Visit: Yes Status: Acute Code(s): M86.9 - OSTEOMYELITIS, UNSPECIFIED SNOMED Code(s): 6987655915348454 (2) Diabetic foot ulcer Current Visit: Yes Status: Acute Priority: High Code(s): E11.621 - TYPE 2 DIABETES MELLITUS WITH FOOT ULCER; L97.509 - NON-PRESSURE CHRONIC ULCER OTH PRT UNSP FOOT W UNSP SEVERITY SNOMED Code(s): 580855519 (3) Foot abscess, right Current Visit: Yes Status: Acute Code(s): L02.611 - CUTANEOUS ABSCESS OF RIGHT FOOT SNOMED Code(s): 60116084184569302 Plan: 1patient presented hospital with right diabetic foot infection in this patient who did have a evidence of Charcot deformity to the right foot he did have a callus on the plantar aspect and a wound that was draining purulent material with foul-smelling we will need to cover for the polymicrobial natalie usually associated with a diabetic foot infection and need to rule out deep abscess and underlying osteomyelitis. 2patient with a penicillin allergy that would limit the number of antibiotics safe to use 3 CT of the right foot suggestive fluid collection but no evidence of any bony destruction 4 patient is status post drainage of right foot abscess and concerning for infection tracking all the way down to the bone suspicious for clinical osteomyelitis acute- 4 Local cultures are currently growing Enterococcus Alphahemolytic S treptococcus and Serratia marcescens for the patient to continue with vancomycin cefepime and Flagyl 6 weeks and call outpatient follow-up, prescription were provided to the family caseworker 5-patient to continue local wound care was switched over to [facility] followed by moist dressing change daily Time with Patient: Less than 30
[2022-11-12] MEDS ORDERED: VANCOMYCIN TROUGH DUE 1 EACH MISC MISCELLANE ONE (11:00)
--- NOTE | 2022-11-14 10:22 | P.DS ---
Providers Date of admission: 11/04/22 16:57 Expected date of discharge: 11/11/22 Attending physician: Jet Montes Consults: 11/04/22 16:55 Consult Physician Routine Consulting Provider: Luiz Gaytan Consult Reason/Comments: Oncological care Do you want consulting provider notified?: Yes Consult Physician Urgent Consulting Provider: Nic Landeros Consult Reason/Comments: Diabetic foot ulcer with sepsis Do you want consulting provider notified?: Yes 11/05/22 11:56 Consult Physician Urgent Consulting Provider: Maury Abernathy Consult Reason/Comments: right diabetic foot ulcer with sepsis Do you want consulting provider notified?: Yes Primary care physician: Shekhar Armenta Hospital Course: Final diagnosis Acute right foot diabetic ulcer with sepsis, present on admission status post debridement and excision of right foot Charcot foot Osteomyelitis, right foot Troponin 3.9 with possible acute nstemi, on medical treatment per cardiology Diabetes mellitus, type II, uncontrolled with hypoglycemia Hypocalcemia, improved History of coronary artery disease Hypertension history GI prophylaxis DVT prophylaxis Full code Discharge disposition Patient is being discharged in a stable condition with guarded prognosis to home with home care. Patient will follow-up with Dr. Armenta in the outpatient setting upon discharge. Patient is to continue with IV and oral antibiotics and close outpatient follow-up with Dr. Abernathy along with infectious disease, cardiology as scheduled. Total time taken is greater than 35 minutes. Hospital course This is a 67-year-old male who was recently admitted with right diabetic foot ulcer with sepsis, present on admission status post debridement and excision of the right foot Charcot foot treatment. Patient will receive a PICC line and outpatient IV antibiotics along with oral and close outpatient follow-up with Dr. Abernathy as well as infectious disease. Patient also follow-up with cardiology recommending maximizing medical treatment. Patient has been cleared by consultations for discharge today. Please refer to other consultation notes for further HPI. Strongly encourage diabetic glycemic control. Currently no r eports of chest pain, shortness of breath, or palpitations. Patient is afebrile. No reports of nausea or vomiting and patient is tolerating diet. Patient will be discharged home today. Guarded prognosis. Physical exam: Gen: This is a 67-year-old male who is awake, alert and oriented 3, well- developed, well-nourished, obese HEENT: Head is atraumatic, normocephalic. Pupils equal, round. Sclerae is anicteric. NECK: Supple. No JVD. No lymphadenopathy. No thyromegaly. LUNGS: Clear to auscultation. No wheezes or rhonchi. No intercostal retractions. HEART: Regular rate and rhythm. No murmur. ABDOMEN: Soft. Obese. Bowel sounds are present. No masses. No tenderness. EXTREMITIES: No pedal edema. No calf tenderness. Right foot currently dressed with Kerlix and dry and intact NEUROLOGICAL: Patient is awake, alert and oriented x3. Cranial nerves 2 through 12 are grossly intact. Diffusely weak Please refer to medication reconciliation sheet for a list of medications. The impression and plan of care has been dictated by Bailey Malone, Nurse Practitioner as directed. Dr. Kamlesh MD I have performed a history and examination and MDM of this patient, discussed the same with the dictator, and agree with the dictator's assessment and plan as written ,documented as a scribe. Based on total visit time, I have performed more than 50% of the visit. Patient Condition at Discharge: Fair Plan - Discharge Summary Discharge Rx Participant: No New Discharge Prescriptions: New Aspirin 81 mg PO DAILY #30 tab Furosemide [Lasix] 40 mg PO DAILY #30 tab Nubeqa 300 Mg Tablet 600 mg PO BID #0 Calcium Carb-Vit D 500Mg-5Mcg [Oscal 500+D 5 Mcg (200 Iu)] 1 each PO TID-W/M EALS #90 tab metroNIDAZOLE [Flagyl] 500 mg PO TID #90 tab carvediloL [Coreg] 3.125 mg PO BID-W/MEALS 30 Days #60 tab Atorvastatin [Lipitor] 40 mg PO DAILY #30 tab Continue Clopidogrel Bisulfate [Clopidogrel] 75 mg PO DAILY glipiZIDE [Glucotrol] 10 mg PO BID Fluticasone Nasal [place] [Flonase Nasal [place]] 1 spr EA NOSTRIL DAILY Eszopiclone [Lunesta] 2 mg PO HS hydrOXYzine HCL [Atarax] 50 mg PO HS PRN PRN Reason: Insomnia Gabapentin 600 mg PO TID oxyCODONE-APAP 10-325MG [Percocet 10-325 mg] 1 tab PO QID PRN #42 tab PRN Reason: Pain Discontinued amLODIPine BESYLATE [Norvasc] 2.5 mg PO DAILY Discharge Medication List Clopidogrel Bisulfate [Clopidogrel] 75 mg PO DAILY 02/04/14 [History] Fluticasone Nasal [place] [Flonase Nasal [place]] 1 spr EA NOSTRIL DAILY 04/29/19 [History] glipiZIDE [Glucotrol] 10 mg PO BID 04/29/19 [History] Eszopiclone [Lunesta] 2 mg PO HS 11/04/22 [History] Gabapentin 600 mg PO TID 11/04/22 [History] hydrOXYzine HCL [Atarax] 50 mg PO HS PRN 11/04/22 [History] Aspirin 81 mg PO DAILY #30 tab 11/11/22 [Rx] Atorvastatin [Lipitor] 40 mg PO DAILY #30 tab 11/11/22 [Rx] Calcium Carb-Vit D 500Mg-5Mcg [Oscal 500+D 5 Mcg (200 Iu)] 1 each PO TID-W/MEALS #90 tab 11/11/22 [Rx] Furosemide [Lasix] 40 mg PO DAILY #30 tab 11/11/22 [Rx] Nubeqa 300 Mg Tablet 600 mg PO BID #0 11/11/22 [Rx] carvediloL [Coreg] 3.125 mg PO BID-W/MEALS 30 Days #60 tab 11/11/22 [Rx] metroNIDAZOLE [Flagyl] 500 mg PO TID #90 tab 11/11/22 [Rx] oxyCODONE-APAP 10-325MG [Percocet 10-325 mg] 1 tab PO QID PRN #42 tab 11/11/22 [Rx] Follow up Appointment(s)/Referral(s): Devin Novak MD [STAFF PHYSICIAN] - 11/19/22 3:30 pm Shekhar Armenta III, MD [Primary Care Provider] - 1-2 days (Office closed at time of discharge. Please call for follow-up appointment.) [facility] [NON-STAFF] - As Needed (berenice) [facility], [NON-STAFF] - 1-2 Days (home care will call to set up appointment, any questions please call agency.) [facility], [REFERRING] - As Needed (IV antibiotics will be delivered to your home tonight between 6-8p.) Maury Abernathy MD [STAFF PHYSICIAN] - 11/17/22 3:15 pm () Nic Landeros MD [STAFF PHYSICIAN] - 1 Week (Office stated they will call patient with appointment time and date.) Activity/Diet/Wound Care/Special Instructions: Activity Limited until follow-up Follow-up with primary care provider along with consultations outpatient as scheduled Continue with IV antibiotics and close outpatient follow-up with infectious disease along with Dr. Abernathy vascular surgery Continue to monitor blood sugars and record all Accu-Cheks before meals and at bedtime and keep a diary for primary care follow-up Discharge Disposition: HOME WITH HOME HEALTH SERVICES
== END 2022-11-11 16:33 | disposition home health service (06) | DRG 853 ==
LOC: EC 13:43 → 3SCARD 16:57 → 4SSUR 11-07 22:31
PROVIDERS: ADMIT Hospitalist; ATTEND Hospitalist
PROC: 0JBQ0ZZ Excision of Right Foot Subcutaneous Tissue and Fascia, Open Approach (ICD-10-PCS; principal; 2022-11-06 17:30)
PROC: 06HM33Z Insertion of Infusion Device into Right Femoral Vein, Percutaneous Approach (ICD-10-PCS; 2022-11-07)
PROC: 02HV33Z Insertion of Infusion Device into Superior Vena Cava, Percutaneous Approach (ICD-10-PCS; 2022-11-10)
DX: A41.81 Sepsis due to Enterococcus (principal); I21.4 Non-ST elevation (NSTEMI) myocardial infarction; L02.611 Cutaneous abscess of right foot; C79.51 Secondary malignant neoplasm of bone; N17.9 Acute kidney failure, unspecified; L03.115 Cellulitis of right lower limb; A52.16 Charcot's arthropathy (tabetic); E11.610 Type 2 diabetes mellitus with diabetic neuropathic arthropathy; E11.621 Type 2 diabetes mellitus with foot ulcer; E11.628 Type 2 diabetes mellitus with other skin complications; E78.5 Hyperlipidemia, unspecified; F17.210 Nicotine dependence, cigarettes, uncomplicated; E83.51 Hypocalcemia; I25.10 Atherosclerotic heart disease of native coronary artery without angina pectoris; I25.2 Old myocardial infarction; D63.1 Anemia in chronic kidney disease; Z20.822 Contact with and (suspected) exposure to COVID-19; I12.9 Hypertensive chronic kidney disease with stage 1 through stage 4 chronic kidney disease, or unspecified chronic kidney disease; E11.22 Type 2 diabetes mellitus with diabetic chronic kidney disease; N18.30 Chronic kidney disease, stage 3 unspecified; I44.0 Atrioventricular block, first degree; L84 Corns and callosities; L97.519 Non-pressure chronic ulcer of other part of right foot with unspecified severity; Z79.84 Long term (current) use of oral hypoglycemic drugs; Z85.528 Personal history of other malignant neoplasm of kidney; Z85.46 Personal history of malignant neoplasm of prostate; Z92.3 Personal history of irradiation; Z95.1 Presence of aortocoronary bypass graft; Z95.5 Presence of coronary angioplasty implant and graft; Z90.5 Acquired absence of kidney; Z86.010 Personal history of colon polyps; Z88.0 Allergy status to penicillin; Z88.7 Allergy status to serum and vaccine; Z88.8 Allergy status to other drugs, medicaments and biological substances; Z79.02 Long term (current) use of antithrombotics/antiplatelets; Z79.82 Long term (current) use of aspirin; Z79.899 Other long term (current) drug therapy; Z80.9 Family history of malignant neoplasm, unspecified; Z83.3 Family history of diabetes mellitus; Z86.16 Personal history of COVID-19; Z86.73 Personal history of transient ischemic attack (TIA), and cerebral infarction without residual deficits; Z85.72 Personal history of non-Hodgkin lymphomas
CPT/HCPCS: 36415; 36573; 71046; 78315; 80048; 80053; 80202; 81001; 82525; 82550; 82565; 82607; 82728; 82746; 83036; 83540; 83550; 83605; 83735; 83921; 84145; 84484; 85025; 85027; 85610; 85730; 87040; 87070; 87075; 87077; 87086; 87186; 87205; 87636; 93005; 93306; 96365; 96366; 96367; 96375; 99291

== ENCOUNTER 2022-11-24 20:19 | Observation (INO) | payer MEDICARE, BC ==
--- NOTE | 2022-11-24 21:59 | ED ---
Recheck HPI - General Chief Complaint: Extremity Injury, Upper Stated Complaint: Picc Line issues Time Seen by Provider: 11/24/22 21:16 Source: patient, RN notes reviewed, old records reviewed Mode of arrival: ambulatory Limitations: no limitations - History of Present Illness Initial Comments: This is a 67-year-old male DF for evaluation. Patient is here as his been unable to take his antibiotics at home. Patient is on antibiotics for right foot infection. Patient does have PICC line and currently is not working. He has no new complaints MD Complaint: other (Recheck PICC line malfunction) -: days(s) Returns Today for: needs IV antibiotics Symptoms Since Prior Visit: no new symptoms Context: planned re-check Associated Symptoms: none Treatments Prior to Arrival: Given Antibiotics on - Related Data Home Medications Medication Instructions Recorded Confirmed Clopidogrel Bisulfate [Clopidogrel] 75 mg PO DAILY 02/04/14 11/04/22 Fluticasone Nasal [place] [Flonase 1 spr EA NOSTRIL DAILY 04/29/19 11/04/22 Nasal [place]] glipiZIDE [Glucotrol] 10 mg PO BID 04/29/19 11/04/22 Eszopiclone [Lunesta] 2 mg PO HS 11/04/22 11/04/22 Gabapentin 600 mg PO TID 11/04/22 11/04/22 hydrOXYzine HCL [Atarax] 50 mg PO HS PRN 11/04/22 11/04/22 Previous Rx's Medication Instructions Recorded Aspirin 81 mg PO DAILY #30 tab 11/11/22 Atorvastatin [Lipitor] 40 mg PO DAILY #30 tab 11/11/22 Calcium Carb-Vit D 500Mg-5Mcg 1 each PO TID-W/MEALS #90 tab 11/11/22 [Oscal 500+D 5 Mcg (200 Iu)] Furosemide [Lasix] 40 mg PO DAILY #30 tab 11/11/22 Nubeqa 300 Mg Tablet 600 mg PO BID #0 11/11/22 carvediloL [Coreg] 3.125 mg PO BID-W/MEALS 30 Days 11/11/22 #60 tab metroNIDAZOLE [Flagyl] 500 mg PO TID #90 tab 11/11/22 oxyCODONE-APAP 10-325MG [Percocet 1 tab PO QID PRN #42 tab 11/11/22 10-325 mg] Allergies Allergy/AdvReac Type Severity Reaction Status Date / Time Penicillins Allergy Unknown Verified 11/24/22 22:19 Childhood Tetanus Vaccines and Toxoid Allergy Unknown Verified 11/04/22 19:10 Childhood metformin AdvReac Nausea & Verified 11/04/22 19:10 Vomiting Review of Systems ROS Statement: Those systems with pertinent positive or pertinent negative responses have been documented in the HPI. ROS Other: All systems not noted in ROS Statement are negative. Past Medical History Past Medical History: Coronary Artery Disease (CAD), Cancer, Chest Pain / Angina, CVA/TIA, Diabetes Mellitus, GI Bleed, Hyperlipidemia, Hypertension, Myocardial Infarction ([place]), Prostate Disorder, Renal Disease, Sleep Apnea/CPAP/BIPAP Additional Past Medical History / Comment(s): SHINGLES 2013 , C-DIFF 2012., HX DIVERTICULOSIS, NEUROPATHY IN HANDS & FEET., LEFT KIDNEY CANCER WITH NEPHRECTOMY URETER & PART OF BLADDER & LYMPH NODES REMOVED., HAS CYST RIGHT KIDNEY, STAGE 3 KIDNEY DISEASE., HX OF SLEEP APNEA (SURGERY)., NON-HODGKINS LYMPHOMA -LAST PET SCAN NEGATIVE., STATES NO RESIDUAL EFFECT FROM HX CVA/TIA., 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 , CIRCUMCISION cataracts., PIECE OF METAL REMOVED FROM ABD (WAR WOUND) - DEVELOPED SCAR TISSUE & PART OF LARGE INTESTINE REMOVED., ABD HERNIA REPAIR. SX FOR SLEEP APNEA. COLONOSCOPY/POLYPECTOMY., SUDHEER ILIAC VEIN STENTING.,, STATES TOTAL OF 4 CARDIAC STENTS, HEART CATH 12/2018. Past Anesthesia/Blood Transfusion Reactions: No Reported Reaction Date of Last Stent Placement:: 01/2014 Past Psychological History: No Psychological Hx Reported Smoking Status: Current every day smoker Past Alcohol Use History: Occasional Past Drug Use History: None Reported - Past Family History Mother Additional Family Medical History / Comment(s): from complications from broken hip. Father Family Medical History: Cancer Sister(s) Family Medical History: Diabetes Mellitus, Deep Vein Thrombosis (DVT) General Exam Limitations: no limitations General appearance: alert, in no apparent distress Head exam: Present: atraumatic, normocephalic, normal inspection Eye exam: Present: normal appearance, PERRL, EOMI. Absent: scleral icterus, conjunctival injection, periorbital swelling ENT exam: Present: normal exam, mucous membranes moist Neck exam: Present: normal inspection. Absent: tenderness, meningismus, lymphadenopathy Respiratory exam: Present: normal lung sounds bilaterally. Absent: respiratory distress, wheezes, rales, rhonchi, stridor Cardiovascular Exam: Present: regular rate, normal rhythm, normal heart sounds. Absent: systolic murmur, diastolic murmur, rubs, gallop, clicks GI/Abdominal exam: Present: soft, normal bowel sounds. Absent: distended, tenderness, guarding, rebound, rigid Extremities exam: Present: normal inspection, full ROM, normal capillary refill. Absent: tenderness, pedal edema, joint swelling, calf tenderness Back exam: Present: normal inspection Neurological exam: Present: alert, oriented X3, CN II-XII intact Psychiatric exam: Present: normal affect, normal mood Skin exam: Present: warm, dry, intact, normal color. Absent: rash Course Vital Signs 11/24/22 20:28 Temperature 98.6 F Pulse Rate 88 Respiratory 16 Rate Blood Pressure 95/59 O2 Sat by Pulse 97 Oximetry - Reevaluation(s) Reevaluation #1: 11/24/22 22:32 Medical record is reviewed Reevaluation #2: 11/24/22 22:33 Patient has no change in symptoms, we're unable to get PICC line to flush here in the emergency department Which goes with patient not been able to kill himself is antibiotics at home Reevaluation #3: 11/24/22 22:33 Patient informed results questions answered Reevaluation #4: 11/24/22 22:33 Was pt. sent in by a medical professional or institution (, PA, HEATING ELEMENT BUILDER, urgent care, hospital, or [facility]...) When possible be specific @ -no Did you speak to anyone other than the patient for history (EMS, parent, family, police, friend...)? What history was obtained from this source @ -no Did you review nursing and triage notes (agree or disagree)? Why? @ -agree Are old charts reviewed (outside hosp., previous admission, EMS record, old EKG, old radiological studies, urgent care reports/EKG's, [facility] records)? Report findings @ -yes Differential Diagnosis (chest pain, altered mental status, abdominal pain women, abdominal pain men, vaginal bleeding, weakness, fever, dyspnea, syncope, headache, dizziness, GI bleed, back pain, seizure, CVA, palpatations, mental health, musculoskeletal)? @ -prior EKG interpreted by me (3pts min.). @ -yes X-rays interpreted by me (1pt min.). @ -yes CT interpreted by me (1pt min.). @ -no U/S interpreted by me (1pt. min.). @ -no What testing was considered but not performed or refused? (CT, X-rays, U/S, labs)? Why? @ -none What meds were considered but not given or refused? Why? @ -none Did you discuss the management of the patient with other professionals (professionals i.e. , PA, HEATING ELEMENT BUILDER, lab, RT, psych nurse, social work therapist, slurry worker, teacher, aeronautical engineering officer, catalytic case operator)? Give summary @ -no Was smoking cessation discussed for >3mins.? @ -no Was critical care preformed (if so, how long)? @ -no Were there social determinants of health that impacted care today? How? (Homelessness, low income, unemployed, alcoholism, drug addiction, transportation, low edu. Level, literacy, decrease access to med. care, retirement, rehab)? @ -none Was there de-escalation of care discussed even if they declined (Discuss DNR or withdrawal of care, Hospice)? DNR status @ -no What co-morbidities impacted this encounter? (DM, HTN, Smoking, COPD, CAD, Cancer, CVA, ARF, Chemo, Hep., AIDS, mental health diagnosis, sleep apnea, morbid obesity)? @ -none Was patient admitted / discharged? Hospital course, mention meds given and route, prescriptions, significant lab abnormalities, going to OR and other pertinent info. @ - Undiagnosed new problem with uncertain prognosis? @ -no Drug Therapy requiring intensive monitoring for toxicity (Heparin, Nitro, Insulin, Cardizem)? @ -no Were any procedures done? @ -no Diagnosis/symptom? @ - Acute, or Chronic, or Acute on Chronic? @ -Acute Uncomplicated (without systemic symptoms) or Complicated (systemic symptoms)? @ -Complicated Side effects of treatment? @ -no Exacerbation, Progression, or Severe Exacerbation? @ -exacerbation Poses a threat to life or bodily function? How? (Chest pain, [place], [place], pneumonia, PE, COPD, DKA, ARF, appy, cholecystitis, CVA, Diverticulitis, Homicidal, Suicidal, threat to staff... and all critical care pts) @ -yes - Consultations Consultation #1: spoke w admitting physicians who agree to admit this patient Medical Decision Making - Medical Decision Making 67 male to be admitted for replaced PICC line replacement PICC line and IV antibiotics Disposition Clinical Impression: Occluded PICC line Narrative: Needs New PICC line Disposition: ADMITTED IP TO THIS [facility] Condition: Good Is patient prescribed a controlled substance at d/c from ED?: No Referrals: Shekhar Armenta III, MD [Primary Care Provider] - 1-2 days Time of Disposition: 22:30
[2022-11-24] MEDS ORDERED: SODIUM CHLORIDE 0.9% 1,000 ML IV STA (22:19)
[2022-11-24] MEDS ORDERED: NALOXONE 0.4 MG/ML 1 ML VIAL IV PRN (22:19)
[2022-11-24] MEDS ORDERED: MORPHINE SULFATE 4 MG/ML SYRINGE IV PRN (22:19)
[2022-11-24] MEDS ORDERED: ONDANSETRON 4 MG/2 ML VIAL IVP PRN (22:19)
[2022-11-24 22:53] LABS: Basophils # (A) 0.1 k/uL (0-0.2); Basophils % (A) 1 %; Eosinophils # (A) 0.1 k/uL (0-0.7); Eosinophils % (A) 2 %; HCT 32.6 % (39.0-53.0); Lymphocytes # (A) 0.7 k/uL (1.0-4.8); Lymphocytes % (A) 13 %; MCH 30.4 pg (25.0-35.0); MCHC 33.7 g/dL (31.0-37.0); MCV 90.2 fL (80.0-100.0); Mean Platelet Volume 8.5; Monocytes # (A) 0.4 k/uL (0-1.0); Monocytes % (A) 7 %; Neutrophils # (A) 4.2 k/uL (1.3-7.7); Neutrophils % (A) 76 %; Platelet Count 159 k/uL (150-450); RBC 3.62 m/uL (4.30-5.90); RDW 15.6 % (11.5-15.5); WBC 5.6 k/uL (3.8-10.6)
[2022-11-24 23:01] LABS: INR 1.1 (<1.2); Partial Thromboplastin Time 24.3 sec (22.0-30.0); Prothrombin Time 11.6 sec (9.0-12.0)
[2022-11-24 23:03] LABS: ALT 19 U/L (4-49); AST 25 U/L (17-59); African American GFR (CKD) 55 (>60 ml/min/1.73 sqM); Albumin 3.8 g/dL (3.5-5.0); Alkaline Phosphatase 69 U/L (38-126); Anion Gap 9 mmol/L; Blood Urea Nitrogen 16 mg/dL (9-20); Calcium 8.8 mg/dL (8.4-10.2); Carbon Dioxide 36 mmol/L (22-30); Chloride 90 mmol/L (98-107); Glucose 266 mg/dL (74-99); Magnesium 1.6 mg/dL (1.6-2.3); Non-African American GFR(CKD) 48 (>60 ml/min/1.73 sqM); Phosphorus 2.4 mg/dL (2.5-4.5); Potassium 2.8 mmol/L (3.5-5.1); Sodium 135 mmol/L (137-145); Total Bilirubin 0.7 mg/dL (0.2-1.3); Total Protein 7.4 g/dL (6.3-8.2)
[2022-11-25] MEDS ORDERED: oxyCODONE-APAP 10-325MG 1 EACH TAB PO PRN (01:56)
[2022-11-25] MEDS ORDERED: hydrOXYzine HCL 25 MG TAB PO PRN (02:15)
[2022-11-25] MEDS ORDERED: carvediloL 3.125 MG TAB PO SCH (07:30)
[2022-11-25 07:51] LABS: Glucose,Whole Blood 225 mg/dL (70-110)
[2022-11-25] MEDS ORDERED: DEXTROSE 50% SYRINGE 50 ML IVP PRN ×2 (07:52)
[2022-11-25] MEDS: CALCIUM CARB-VIT D 500 MG-5 MCG TAB PO SCH ×2 (08:10→11:58)
[2022-11-25] MEDS: GABAPENTIN 300 MG CAP PO SCH ×2 (08:10→15:12)
[2022-11-25] MEDS: INSULIN ASPART (NovoLOG) 100 UNIT/ML VIAL SQ SCH ×2 (08:11→11:58)
[2022-11-25] MEDS ORDERED: NUBEQA PO SCH (09:00)
[2022-11-25] MEDS ORDERED: oxyCODONE ER 20 MG TAB.ER.12H PO SCH (09:00)
[2022-11-25] MEDS ORDERED: glipiZIDE 10 MG TAB PO SCH (09:00)
[2022-11-25] MEDS ORDERED: FLUTICASONE 50MCG/SPRAY NASAL 16GM EA NOSTRIL SCH (09:00)
[2022-11-25] MEDS ORDERED: FUROSEMIDE 40 MG TAB PO SCH (09:00)
[2022-11-25] MEDS ORDERED: ATORVASTATIN 40 MG TAB PO SCH (09:00)
[2022-11-25] MEDS ORDERED: CLOPIDOGREL 75 MG TAB PO SCH (09:00)
[2022-11-25] MEDS ORDERED: ASPIRIN 81 MG PO SCH (09:00)
[2022-11-25 11:35] LABS: Glucose,Whole Blood 300 mg/dL (70-110)
[2022-11-25 11:53] LABS: African American GFR (CKD) 72 (>60 ml/min/1.73 sqM); Anion Gap 6 mmol/L; Blood Urea Nitrogen 20 mg/dL (9-20); Carbon Dioxide 36 mmol/L (22-30); Chloride 93 mmol/L (98-107); Glucose 285 mg/dL (74-99); Magnesium 1.6 mg/dL (1.6-2.3); Non-African American GFR(CKD) 62 (>60 ml/min/1.73 sqM); Sodium 135 mmol/L (137-145)
[2022-11-25 12:13] LABS: Potassium 2.7 mmol/L (3.5-5.1)
[2022-11-25] MEDS ORDERED: MAGNESIUM SULFATE-D5W PMX 1 GM in DEXTROSE/WATER 1 100ML.BAG IVPB ONE (12:16)
[2022-11-25] MEDS ORDERED: Potassium Replacement Protocol 1 EACH MISC MISCELLANE PRN ×2 (12:16→12:19)
[2022-11-25] MEDS ORDERED: Magnesium Replacement Protocol 1 EACH MISC MISCELLANE PRN (12:16)
[2022-11-25] MEDS: POTASSIUM CHLORIDE ER 20 MEQ TAB.ER PO SCH ×3 (12:58→15:12)
[2022-11-25] MEDS ORDERED: POTASSIUM CHLORIDE ER 20 MEQ TAB.ER PO STA (13:02)
[2022-11-25 13:10] VITALS: PULSE 69; RESP 18
[2022-11-25] MEDS ORDERED: LIDOCAINE 1% INJ 10MG/ML (5 ML VIAL-PF) SQ ONE (13:24)
--- NOTE | 2022-11-25 13:45 | IR ---
PICC LINE EXCHANGE OVER A GUIDEWIRE: HISTORY: Malfunctioning PICC line PROCEDURE: Ultrasound and fluoroscopic guidance of PICC line placement. COMPLICATIONS: None ANESTHESIA: 1. 1% Lidocaine locally. FINDINGS/TECHNIQUE: The procedure was explained to the patient. The risks, complications, benefits and alternatives were discussed and any questions were answered. Informed consent was obtained. The patient was placed supine on the fluoroscopic table and prepped and draped in the usual sterile [facility] ion. Utilizing a 21 gauge needle and fluoroscopic guidance, existing catheter was cut and there is placement of a 0.018 guidewire. The vein is patent. A 4-F sheath was placed over the guidewire. Th e guidewire and dilator were removed and a 4-F. PICC line was placed through the sheath with the tip at the level of the SVC. The sheath was removed, the catheter was flushed and sutured into position. The patient was stable throughout the procedure and remained stable upon discharge from the [facility]. The vein puncture was patent under ultrasound. A nuñez scale image was obtained to document patency of the vein punctured. All elements of the maximal barrier technique were utilized. FLUOROSCOPY TIME: DAP 0.2620Gy cm2 IMPRESSION: Successful left upper extremity PICC line exchange over a guidewire under fluoroscopic guidance.
[2022-11-25 15:20] VITALS: BP 143/81; TEMP 98.3
--- NOTE | 2022-11-26 05:31 | P.HPIM ---
History of Present Illness H&P Date: 11/25/22 This is a pleasant 67-year-old male who presented to the emergency department reporting his PICC line was not functioning over the last 2 days. Patient does have an outpatient PICC line was placed on previous admission for right foot and lower extremity cellulitis. Patient with significant past medical history of coronary artery disease, angina, CVA/TIA, diabetes mellitus, insulin-dependent, hyperlipidemia, hypertension, myocardial infarctions, chronic kidney disease, sleep apnea, kidney cancer with nephrectomy, stage III kidney disease, history of Hodgkin's lymphoma. Labs reviewed hypokalemia and hypomagnesemia and patient was maintained on Lasix will decrease the dose and replace electrolytes per protocol. Recommend follow-up labs next few days. PICC line will be ordered and replaced and patient will be discharged Review Of Systems: Constitutional: No fever, no chills, no night sweats. No weight change. No weakness, fatigue or lethargy. No daytime sleepiness. EENT: No headache. No blurred vision or double vision, no loss of vision. No loss of Hearing, no ringing in the ears, no dizziness. No nasal drainage or congestion. No epistaxis. No sore throat. Lungs: No shortness of breath, cough, no sputum production. No wheezing. Cardiovascular: No chest pain, no lower extremity edema. No palpitations. No paroxysmal nocturnal dyspnea. No orthopnea. No lightheadedness or dizziness. No syncopal episodes. Abdominal: No abdominal pain. No nausea, vomiting. No diarrhea. No constipation. No bloody or tarry stools.. No loss of appetite. Genitourinary: No dysuria, increased frequency, urgency. No urinary retention. Musculoskeletal: No myalgias. No muscle weakness, no gait dysfunction, no frequent falls. No back pain. No neck pain. Integumentary: No wounds, no lesions. No rash or pruritus. No unusual bruising. No change in hair or nails. Neurologic: No aphasia. No facial droop. No change in mentation. No head injury. No headache. No paralysis. No paresthesia. Psychiatric: No depression. No anxiety. No mood swings. Endocrine: No abnormal blood sugars. No weight change. No excessive sweating or thirst. No cold intolerance. PHYSICAL EXAMINATION: GENERAL: The patient is alert and oriented x4, Well developed, well nourished. HEENT: Pupils are round and equally reacting to light. EOMI. no scleral icterus. No conjunctival pallor. Normocephalic, atraumatic. No pharyngeal erythema. No thyromegaly. CARDIOVASCULAR: S1 and S2 muffled PULMONARY: diminished breath sounds bilaterally with no wheezing or rhonchi noted. ABDOMEN: soft. Nontender on exam. obese. non-distended, normoactive bowel sounds. No palpable organomegaly. MUSCULOSKELETAL: No joint swelling or deformity. EXTREMITIES: No cyanosis, clubbing, or pedal edema. NEUROLOGICAL: Gross neurological examination did not reveal any focal deficits. SKIN: No rashes. Assessment: PICC line malfunction, occluded History of recent right lower extremity cellulitis with osteomyelitis with outpatient IV antibiotic therapy History of coronary artery disease History of kidney cancer with nephrectomy Stage III kidney disease Hypokalemia likely from diuretic use Hypomagnesemia History of myocardial infarction Hyperlipidemia sign hypertension Diabetes mellitus, type II, insulin-dependent uncontrolled with hyperglycemia history of CVA/TIA GI prophylaxis DVT prophylaxis Full code Plan: Patient will be scheduled to receive a PICC line placement as patient reports t he PICC has not been functioning for 2 days and has not received IV antibiotics Will replace potassium 2.7 and magnesium of 1.6 with replacement protocol. Lasix will be cut down to daily and potassium supplement ordered and recommend repeat labs in the outpatient setting Patient will continue with local wound care along with home care and close outpatient follow-up with infectious disease and vascular surgery Discussed tight glycemic control and will resume home medications Patient will be discharged after PICC line placement The impression and plan of care has been dictated by Bailey Malone, nurse practitioner as directed. Dr. Dheeraj MD I have performed a history and examination and MDM of this patient, discussed the same with the dictator, and agree with the dictator's assessment and plan as written ,documented as a scribe. Based on total visit time, I have performed more than 50% of the visit. Any additional findings or plans will be noted. Past Medical History Past Medical History: Coronary Artery Disease (CAD), Cancer, Chest Pain / Angina, CVA/TIA, Diabetes Mellitus, GI Bleed, Hyperlipidemia, Hypertension, Myocardial Infarction ([place]), Prostate Disorder, Renal Disease, Sleep Apnea/CPAP/BIPAP Additional Past Medical History / Comment(s): SHINGLES 2014 , C-DIFF 2013., HX DIVERTICULOSIS, NEUROPATHY IN HANDS & FEET., LEFT KIDNEY CANCER WITH NEPHRECTOMY URETER & PART OF BLADDER & LYMPH NODES REMOVED., HAS CYST RIGHT KIDNEY, STAGE 3 KIDNEY DISEASE., HX OF SLEEP APNEA (SURGERY)., NON-HODGKINS LYMPHOMA -LAST PET SCAN NEGATIVE., STATES NO RESIDUAL EFFECT FROM HX CVA/TIA., 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 , CIRCUMCISION cataracts., PIECE OF METAL REMOVED FROM ABD (WAR WOUND) - DEVELOPED SCAR TISSUE & PART OF LARGE INTESTINE REMOVED., ABD HERNIA REPAIR. SX FOR SLEEP APNEA. COLONOSCOPY/POLYPECTOMY., SUDHEER ILIAC VEIN STENTING.,, STATES TOTAL OF 4 CARDIAC STENTS, HEART CATH 12/2018. Past Anesthesia/Blood Transfusion Reactions: No Reported Reaction Date of Last Stent Placement:: 01/2014 Past Psychological History: No Psychological Hx Reported Smoking Status: Current every day smoker Past Alcohol Use History: Occasional Past Drug Use History: None Reported - Past Family History Mother Additional Family Medical History / Comment(s): from complications from broken hip. Father Family Medical History: Cancer Sister(s) Family Medical History: Diabetes Mellitus, Deep Vein Thrombosis (DVT) Medications and Allergies Home Medications Medication Instructions Recorded Confirmed Type Clopidogrel Bisulfate [Clopidogrel] 75 mg PO DAILY 02/04/14 11/24/22 History Fluticasone Nasal [place] [Flonase 1 spr EA NOSTRIL DAILY 04/29/19 11/24/22 History Nasal [place]] glipiZIDE [Glucotrol] 10 mg PO BID 04/29/19 11/24/22 History Gabapentin 600 mg PO TID 11/04/22 11/24/22 History hydrOXYzine HCL [Atarax] 50 mg PO HS PRN 11/04/22 11/24/22 History Aspirin 81 mg PO DAILY #30 tab 11/11/22 11/24/22 Rx Atorvastatin [Lipitor] 40 mg PO DAILY #30 tab 11/11/22 11/24/22 Rx Nubeqa 300 Mg Tablet 600 mg PO BID #0 11/11/22 11/24/22 Rx carvediloL [Coreg] 3.125 mg PO BID-W/MEALS 30 Days 11/11/22 11/24/22 Rx #60 tab metroNIDAZOLE [Flagyl] 500 mg PO TID #90 tab 11/11/22 11/24/22 Rx oxyCODONE-APAP 10-325MG [Percocet 1 tab PO QID PRN #42 tab 11/11/22 11/24/22 Rx 10-325 mg] Calcium Carb-Vit D 500Mg-5Mcg 1 tab PO TID-W/MEALS 11/24/22 11/24/22 History [Oscal 500+D 5 Mcg (200 Iu)] oxyCODONE HCL [oxyCODONE HCL ER] 20 mg PO BID 11/24/22 11/24/22 History Furosemide [Lasix] 20 mg PO DAILY #15 tab 11/25/22 11/24/22 Rx Potassium Chloride [K-Tab ER] 20 meq PO BID #60 tab 11/25/22 Rx Allergies Allergy/AdvReac Type Severity Reaction Status Date / Time Penicillins Allergy Unknown Verified 11/24/22 22:19 Childhood Tetanus Vaccines and Toxoid Allergy Unknown Verified 11/04/22 19:10 Childhood metformin AdvReac Nausea & Verified 11/04/22 19:10 Vomiting Physical Exam Vitals: Vital Signs Temp Pulse Resp BP Pulse Ox 11/25/22 04:00 61 14 93/56 92 L 11/25/22 02:14 71 16 97/60 95 11/25/22 00:47 81 18 109/59 93 L 11/24/22 22:57 82 18 116/66 95 11/24/22 20:28 98.6 F 88 16 95/59 97 Intake and Output 11/24/22 11/25/22 11/25/22 22:59 06:59 14:59 Other: Weight 90.718 kg Results CBC & Chem 7: 11/24/22 22:37 11/25/22 11:11 Labs: Abnormal Lab Results - Last 24 Hours (Table) 11/24/22 11/24/22 11/24/22 Range/Units 22:37 22:37 22:37 RBC 3.62 L (4.30-5.90) m/uL Hgb 11.0 L (13.0-17.5) gm/dL Hct 32.6 L (39.0-53.0) % RDW 15.6 H (11.5-15.5) % Lymphocytes # 0.7 L (1.0-4.8) k/uL Sodium 135 L (137-145) mmol/L Potassium 2.8 L (3.5-5.1) mmol/L Chloride 90 L (98-107) mmol/L Carbon Dioxide 36 H (22-30) mmol/L Creatinine 1.48 H (0.66-1.25) mg/dL Glucose 266 H (74-99) mg/dL POC Glucose (mg/dL) (70-110) mg/dL Phosphorus 2.4 L (2.5-4.5) mg/dL Troponin I 0.093 H* (0.000-0.034) ng/mL 11/25/22 Range/Units 07:50 RBC (4.30-5.90) m/uL Hgb (13.0-17.5) gm/dL Hct (39.0-53.0) % RDW (11.5-15.5) % Lymphocytes # (1.0-4.8) k/uL Sodium (137-145) mmol/L Potassium (3.5-5.1) mmol/L Chloride (98-107) mmol/L Carbon Dioxide (22-30) mmol/L Creatinine (0.66-1.25) mg/dL Glucose (74-99) mg/dL POC Glucose (mg/dL) 225 H (70-110) mg/dL Phosphorus (2.5-4.5) mg/dL Troponin I (0.000-0.034) ng/mL Thrombosis Risk Factor Assmnt - DVT/VTE Prophylaxis DVT/VTE Prophylaxis: Mechanical Prophylaxis ordered Assessment and Plan Time with Patient: Greater than 30
--- NOTE | 2022-11-28 23:00 | P.DS ---
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 Patient will follow-up with Dr. Armenta in the outpatient setting upon discharge. Patient is to continue with IV antibiotics per ID recommendations and outpatient follow-up with infectious disease as well as wound care as scheduled. Total time taken is greater than 35 minutes. Hospital course This is a 67-year-old male who was recently admitted with right lower extremity cellulitis with osteomyelitis and debridement that did receive a PICC line for continued IV antibiotics on discharge. Patient reports PICC line became occluded and has received antibiotics for the last 2 days. Patient was instructed to come to the ER. Patient will receive a PICC line and continue on antibiotic therapy and close outpatient follow-up as previously scheduled. Patient also follow-up with cardiology in the outpatient setting. Patient did have some electrolyte abnormalities including potassium and magnesium which were replaced. Decreased some of the dosage of Lasix and prescribed potassium supplement on discharge. Recommend follow-up labs and follow-up with primary care provider this week. Currently no reports of chest pain, shortness of breath, or palpitations. Patient is afebrile. No reports of nausea or vomiting and patient is tolerating diet. Patient will be discharged home with continued home care today. Physical exam: Gen: This is a 67-year-old male who is awake, alert and oriented 3, well-devel oped, well-nourished HEENT: Head is atraumatic, normocephalic. Pupils equal, round. Sclerae is anicteric. NECK: Supple. No JVD. No lymphadenopathy. No thyromegaly. LUNGS: Clear to auscultation. No wheezes or rhonchi. No intercostal retractions. HEART: Regular rate and rhythm. No murmur. ABDOMEN: Soft. Bowel sounds are present. No masses. No tenderness. EXTREMITIES: No pedal edema. No calf tenderness. NEUROLOGICAL: Patient is awake, alert and oriented x3. Cranial nerves 2 through 12 are grossly intact. Please refer to medication reconciliation sheet for a list of medications. The impression and plan of care has been dictated by Bailey Malone, Nurse Practitioner as directed. Dr. Dheeraj MD I have performed a history and examination and MDM of this patient, discussed the same with the dictator, and agree with the dictator's assessment and plan as written ,documented as a scribe. Based on total visit time, I have performed more than 50% of the visit. Patient Condition at Discharge: Good Plan - Discharge Summary New Discharge Prescriptions: New Potassium Chloride [K-Tab ER] 20 meq PO BID #60 tab Continue Clopidogrel Bisulfate [Clopidogrel] 75 mg PO DAILY glipiZIDE [Glucotrol] 10 mg PO BID Fluticasone Nasal [place] [Flonase Nasal [place]] 1 spr EA NOSTRIL DAILY hydrOXYzine HCL [Atarax] 50 mg PO HS PRN PRN Reason: Insomnia Aspirin 81 mg PO DAILY #30 tab Nubeqa 300 Mg Tablet 600 mg PO BID #0 metroNIDAZOLE [Flagyl] 500 mg PO TID #90 tab Calcium Carb-Vit D 500Mg-5Mcg [Oscal 500+D 5 Mcg (200 Iu)] 1 tab PO TID- W/MEALS Gabapentin 600 mg PO TID carvediloL [Coreg] 3.125 mg PO BID-W/MEALS 30 Days #60 tab Atorvastatin [Lipitor] 40 mg PO DAILY #30 tab oxyCODONE-APAP 10-325MG [Percocet 10-325 mg] 1 tab PO QID PRN #42 tab PRN Reason: Pain oxyCODONE HCL [oxyCODONE HCL ER] 20 mg PO BID Changed Furosemide [Lasix] 20 mg PO DAILY #15 tab Discharge Medication List Clopidogrel Bisulfate [Clopidogrel] 75 mg PO DAILY 02/04/14 [History] Fluticasone Nasal [place] [Flonase Nasal [place]] 1 spr EA NOSTRIL DAILY 04/29/19 [History] glipiZIDE [Glucotrol] 10 mg PO BID 04/29/19 [History] Gabapentin 600 mg PO TID 11/04/22 [History] hydrOXYzine HCL [Atarax] 50 mg PO HS PRN 11/04/22 [History] Aspirin 81 mg PO DAILY #30 tab 11/11/22 [Rx] Atorvastatin [Lipitor] 40 mg PO DAILY #30 tab 11/11/22 [Rx] Nubeqa 300 Mg Tablet 600 mg PO BID #0 11/11/22 [Rx] carvediloL [Coreg] 3.125 mg PO BID-W/MEALS 30 Days #60 tab 11/11/22 [Rx] metroNIDAZOLE [Flagyl] 500 mg PO TID #90 tab 11/11/22 [Rx] oxyCODONE-APAP 10-325MG [Percocet 10-325 mg] 1 tab PO QID PRN #42 tab 11/11/22 [Rx] Calcium Carb-Vit D 500Mg-5Mcg [Oscal 500+D 5 Mcg (200 Iu)] 1 tab PO TID-W/MEALS 11/24/22 [History] oxyCODONE HCL [oxyCODONE HCL ER] 20 mg PO BID 11/24/22 [History] Furosemide [Lasix] 20 mg PO DAILY #15 tab 11/25/22 [Rx] Potassium Chloride [K-Tab ER] 20 meq PO BID #60 tab 11/25/22 [Rx] Follow up Appointment(s)/Referral(s): Shekhar Armenta III, MD [Primary Care Provider] - 1-2 days Ambulatory/Diagnostic Orders: Basic Metabolic Panel [LAB.AMB] Time Frame: 3 Days, Location: None Selected Activity/Diet/Wound Care/Special Instructions: Activity Limited until follow-up Follow-up with primary care provider on discharge Follow-up with vascular surgery as well as infectious disease outpatient Recommend repeat labs of BMP and magnesium in 2-3 days Continue with home care and PICC line orders per ID recommendations Discharge Disposition: HOME WITH HOME HEALTH SERVICES
== END 2022-11-25 16:14 | disposition home health service (06) ==
LOC: EC 20:19 → 6NMEDSUR 22:20 → 3SCARD 23:39
PROVIDERS: ADMIT Hospitalist; ATTEND Hospitalist
DX: T82.594A Other mechanical complication of infusion catheter, initial encounter (principal); Y71.2 Prosthetic and other implants, materials and accessory cardiovascular devices associated with adverse incidents; L08.9 Local infection of the skin and subcutaneous tissue, unspecified; I25.10 Atherosclerotic heart disease of native coronary artery without angina pectoris; E78.5 Hyperlipidemia, unspecified; I25.2 Old myocardial infarction; G47.30 Sleep apnea, unspecified; E11.40 Type 2 diabetes mellitus with diabetic neuropathy, unspecified; I12.9 Hypertensive chronic kidney disease with stage 1 through stage 4 chronic kidney disease, or unspecified chronic kidney disease; N18.30 Chronic kidney disease, stage 3 unspecified; E11.22 Type 2 diabetes mellitus with diabetic chronic kidney disease; E87.6 Hypokalemia; E83.42 Hypomagnesemia; E11.65 Type 2 diabetes mellitus with hyperglycemia; F17.200 Nicotine dependence, unspecified, uncomplicated; Z85.528 Personal history of other malignant neoplasm of kidney; Z85.72 Personal history of non-Hodgkin lymphomas; Z86.73 Personal history of transient ischemic attack (TIA), and cerebral infarction without residual deficits; Z90.5 Acquired absence of kidney; Z95.5 Presence of coronary angioplasty implant and graft; Z79.02 Long term (current) use of antithrombotics/antiplatelets; Z79.84 Long term (current) use of oral hypoglycemic drugs; Z79.899 Other long term (current) drug therapy; Z79.82 Long term (current) use of aspirin; Z79.51 Long term (current) use of inhaled steroids; Z88.0 Allergy status to penicillin
CPT/HCPCS: 96372; 99284; 36573; 80053; 80048; 83735 ×2; 84100; 84484; 85025; 85610; 85730; 87040; G0378 ×2; C1751; C1769; J2001; J3475

== ENCOUNTER 2023-03-03 13:49 | Emergency (ER) | payer MEDICARE, BC ==
[2023-03-03 14:24] VITALS: PULSE 78; RESP 16; TEMP 98.6
[2023-03-03 15:03] LABS: Basophils % (A) 0 %; Eosinophils # (A) 0.1 k/uL (0-0.7); Eosinophils % (A) 1 %; HCT 32.4 % (39.0-53.0); HGB 10.6 gm/dL (13.0-17.5); Lymphocytes # (A) 0.6 k/uL (1.0-4.8); Lymphocytes % (A) 7 %; MCH 30.5 pg (25.0-35.0); MCHC 32.8 g/dL (31.0-37.0); MCV 92.9 fL (80.0-100.0); Mean Platelet Volume 7.9; Monocytes # (A) 0.4 k/uL (0-1.0); Monocytes % (A) 4 %; Neutrophils # (A) 7.3 k/uL (1.3-7.7); Neutrophils % (A) 86 %; Platelet Count 228 k/uL (150-450); RBC 3.48 m/uL (4.30-5.90); RDW 14.9 % (11.5-15.5); WBC 8.5 k/uL (3.8-10.6)
[2023-03-03 15:18] LABS: ALT 44 U/L (4-49); AST 33 U/L (17-59); African American GFR (CKD) 79 (>60 ml/min/1.73 sqM); Amylase 57 U/L (30-110); Anion Gap 14 mmol/L; Blood Urea Nitrogen 20 mg/dL (9-20); Carbon Dioxide 24 mmol/L (22-30); Chloride 95 mmol/L (98-107); Glucose 286 mg/dL (74-99); Lipase 510 U/L (23-300); Non-African American GFR(CKD) 68 (>60 ml/min/1.73 sqM); Potassium 3.2 mmol/L (3.5-5.1); Sodium 133 mmol/L (137-145); Total Bilirubin 0.9 mg/dL (0.2-1.3); Total Protein 7.8 g/dL (6.3-8.2)
[2023-03-03 15:20] LABS: INR 1.1 (<1.2); Partial Thromboplastin Time 26.7 sec (22.0-30.0); Prothrombin Time 11.4 sec (10.0-12.5)
--- NOTE | 2023-03-03 15:28 | XR ---
EXAMINATION TYPE: XR chest 2V DATE OF EXAM: 03/03/2023 COMPARISON: 01/21/2023 TECHNIQUE: PA and lateral views submitted. HISTORY: Pain FINDINGS: The lungs are clear and there is no pneumothorax, pleural effusion, or focal pneumonia. Heart size normal and no overt failure. Osseous structures demonstrate hypertrophic and degenerative changes of the spine. Postoperative changes. Hyperexpansion compatible COPD. Biapical pleural thickening. Nodule right midlung. Left-sided PICC line seen with tip overlying the SVC. IMPRESSION: 1. No acute process. COPD. There is a nodule in the right midlung which may represent a nipple shadow . Recommend repeat frontal view with nipple markers.
[2023-03-03 16:12] LABS: Alkaline Phosphatase 603 U/L (38-126)
[2023-03-03] MEDS ORDERED: ONDANSETRON 4 MG/2 ML VIAL IVP STA (17:33)
[2023-03-03] MEDS ORDERED: HYDROmorphone 1 MG/ML 1 ML SYRINGE IVP STA ×2 (17:33→19:46)
[2023-03-03] MEDS ORDERED: FAMOTIDINE 20 MG/2 ML VIAL IV STA (17:33)
--- NOTE | 2023-03-03 17:37 | ED ---
General Adult HPI - General Chief complaint: Abdominal Pain Stated complaint: Abdominal pain Time Seen by Provider: 03/03/23 16:59 Source: patient, family, RN notes reviewed Mode of arrival: wheelchair Limitations: no limitations - History of Present Illness Initial comments: Patient is a pleasant 67-year-old male presenting to the emergency department with concerns for abdominal pain. Onset of symptoms was over a week ago. Symptoms worsen with oral intake. Patient is tolerating fluids. Patient does have history of metastatic prostate cancer. Patient is currently on antibiotics for foot ulcer. Patient has had nausea and vomiting, especially with solid food intake. - Related Data Home Medications Medication Instructions Recorded Confirmed Clopidogrel Bisulfate [Clopidogrel] 75 mg PO DAILY 02/04/14 01/21/23 Fluticasone Nasal [place] [Flonase 1 spr EA NOSTRIL DAILY PRN 04/29/19 01/21/23 Nasal [place]] glipiZIDE [Glucotrol] 10 mg PO BID PRN 04/29/19 01/21/23 Gabapentin 600 mg PO TID 11/04/22 01/21/23 hydrOXYzine HCL [Atarax] 50 mg PO HS PRN 11/04/22 01/21/23 Calcium Carb-Vit D 500Mg-5Mcg 1 tab PO TID-W/MEALS 11/24/22 01/21/23 [Oscal 500+D 5 Mcg (200 Iu)] Morphine Sulfate ER [Ms Contin] 30 mg PO BID 01/21/23 01/21/23 oxyCODONE-APAP 10-325MG [Percocet 1 tab PO Q6H PRN 01/21/23 01/21/23 10-325 mg] Previous Rx's Medication Instructions Recorded Aspirin 81 mg PO DAILY #30 tab 11/11/22 Atorvastatin [Lipitor] 40 mg PO DAILY #30 tab 11/11/22 Nubeqa 300 Mg Tablet 600 mg PO BID #0 11/11/22 carvediloL [Coreg] 3.125 mg PO BID-W/MEALS 30 Days 11/11/22 #60 tab Furosemide [Lasix] 20 mg PO DAILY #15 tab 11/25/22 Potassium Chloride [K-Tab ER] 20 meq PO BID #60 tab 11/25/22 Magnesium Oxide [Mag-Ox] 400 mg PO DAILY tab 01/26/23 Vancomycin HCl in 5 % Dextrose 1.5 gm IV Q12H #84 each 10/02/23 [Vancomycin 1 Gram/250 ml-D5w] Allergies Allergy/AdvReac Type Severity Reaction Status Date / Time Penicillins Allergy Unknown Verified 01/21/23 12:52 Childhood Tetanus Vaccines and Toxoid Allergy Unknown Verified 01/21/23 12:52 Childhood metformin AdvReac Nausea & Verified 01/21/23 12:52 Vomiting Review of Systems ROS Statement: Those systems with pertinent positive or pertinent negative responses have been documented in the HPI. ROS Other: All systems not noted in ROS Statement are negative. Constitutional: Reports: fever (Patient did have a fever the other day up to 100.7) Eyes: Denies: eye pain ENT: Denies: ear pain Respiratory: Denies: cough, dyspnea Cardiovascular: Denies: chest pain Endocrine: Reports: fatigue Gastrointestinal: Reports: abdominal pain, nausea, vomiting Genitourinary: Denies: dysuria Musculoskeletal: Denies: back pain Skin: Reports: as per HPI Past Medical History Past Medical History: Coronary Artery Disease (CAD), Cancer, Chest Pain / Angina, CVA/TIA, Diabetes Mellitus, GI Bleed, Hyperlipidemia, Hypertension, Myocardial Infarction ([place]), Prostate Disorder, Renal Disease, Sleep Apnea/CPAP/BIPAP Additional Past Medical History / Comment(s): SHINGLES 2014 , C-DIFF 2012., HX DIVERTICULOSIS, NEUROPATHY IN HANDS & FEET., LEFT KIDNEY CANCER WITH NEPHRECTOMY URETER & PART OF BLADDER & LYMPH NODES REMOVED., HAS CYST RIGHT KIDNEY, STAGE 3 KIDNEY DISEASE., HX OF SLEEP APNEA (SURGERY)., NON-HODGKINS LYMPHOMA -LAST PET SCAN NEGATIVE., STATES NO RESIDUAL EFFECT FROM HX CVA/TIA., 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 Last Myocardial Infarction Date:: 2012 History of Any Multi-Drug Resistant Organisms: None Reported Date of last positivie culture/infection: 01/22/23 MDRO Source:: Toe Right FIrst Past Surgical History: Bowel Resection, Heart Catheterization, Heart Catheterization With Stent, Hernia Repair, Tonsillectomy Additional Past Surgical History / Comment(s): 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 , CIRCUMCISION cataracts., PIE CE OF METAL REMOVED FROM ABD (WAR WOUND) - DEVELOPED SCAR TISSUE & PART OF LARGE INTESTINE REMOVED., ABD HERNIA REPAIR. SX FOR SLEEP APNEA. COLONOSCOPY/POLYPECTOMY., SUDHEER ILIAC VEIN STENTING.,, STATES TOTAL OF 4 CARDIAC STENTS, HEART CATH 12/2018. Past Anesthesia/Blood Transfusion Reactions: No Reported Reaction Date of Last Stent Placement:: 01/2014 Past Psychological History: No Psychological Hx Reported Smoking Status: Current every day smoker Past Alcohol Use History: Occasional Past Drug Use History: None Reported - Past Family History Mother Additional Family Medical History / Comment(s): from complications from broken hip. Father Family Medical History: Cancer Sister(s) Family Medical History: Diabetes Mellitus, Deep Vein Thrombosis (DVT) General Exam Limitations: no limitations General appearance: alert, in no apparent distress Head exam: Present: normocephalic Eye exam: Present: normal appearance Neck exam: Present: normal inspection Respiratory exam: Present: normal lung sounds bilaterally Cardiovascular Exam: Present: regular rate, normal rhythm GI/Abdominal exam: Present: soft, tenderness (Moderate tenderness right upper quadrant and epigastric region as well as superior umbilical), normal bowel sounds. Absent: distended, guarding, rebound, rigid, pulsatile mass Extremities exam: Present: normal inspection Neurological exam: Present: alert Psychiatric exam: Present: normal affect, normal mood Course Vital Signs 03/03/23 14:06 Temperature 98.6 F Pulse Rate 78 Respiratory 16 Rate Blood Pressure 112/71 O2 Sat by Pulse 99 Oximetry Medical Decision Making - Medical Decision Making Was pt. sent in by a medical professional or institution (Dr. PA, FIELD SCOUT, urgent care, hospital, or custodial...) When possible be specific @ -No Did you speak to anyone other than the patient for history (EMS, parent, family, police, friend...)? What history was obtained from this source @ -Wave present and helps provide history including history of onset Did you review nursing and triage notes (agree or disagree)? Why? @ -I reviewed and agree with nursing and triage notes Were old charts reviewed (outside hosp., previous admission, EMS record, old EKG, old radiological studies, urgent care reports/EKG's, custodial records)? Report findings @ -No old charts were reviewed Differential Diagnosis (chest pain, altered mental status, abdominal pain women, abdominal pain men, vaginal bleeding, weakness, fever, dyspnea, syncope, headache, dizziness, GI bleed, back pain, seizure, CVA, palpatations, mental health, musculoskeletal)? @ -Differential Abdominal Pain Men: Appendicitis, cholecystitis, diverticulosis, ischemic bowel, pancreatitis, hepatitis, UTI, gastroenteritis, AAA, incarcerated hernia, bowel obstruction, constipation, inflammatory bowel, hepatitis, peptic ulcer disease, splenic inf arction, perforated viscus, testicular torsion, this is not meant to be an all- inclusive list EKG interpreted by me (3pts min.). @ -As above X-rays interpreted by me (1pt min.). @ -None done CT interpreted by me (1pt min.). @ -Port reviewed U/S interpreted by me (1pt. min.). @ -None done What testing was considered but not performed or refused? (CT, X-rays, U/S, labs)? Why? @ -None What meds were considered but not given or refused? Why? @ -None Did you discuss the management of the patient with other professionals (professionals i.e. , PA, FIELD SCOUT, lab, RT, psych nurse, social work professor, deli cook, teacher, airframe technical officer, business case analyst)? Give summary @ -Case was discussed with Dr. Wilson who does recommend transfer. Case was discussed with [facility] Dr. bailey at [facility] is agreeable with transfer. Case also discussed with Dr. Lira emergency department who will accept transfer. Was smoking cessation discussed for >3mins.? @ -No Was critical care preformed (if so, how long)? @ -No Were there social determinants of health that impacted care today? How? (Homelessness, low income, unemployed, alcoholism, drug addiction, transportation, low edu. Level, literacy, decrease access to med. care, [facility], rehab)? @ -No Was there de-escalation of care discussed even if they declined (Discuss DNR or withdrawal of care, Hospice)? DNR status @ -No What co-morbidities impacted this encounter? (DM, HTN, Smoking, COPD, CAD, Cancer, CVA, ARF, Chemo, Hep., AIDS, mental health diagnosis, sleep apnea, morbid obesity)? @ -None Was patient admitted / discharged? Hospital course, mention meds given and route, prescriptions, significant lab abnormalities, going to OR and other pertinent info. @ -Patient reevaluated and still having symptoms. Patient and family updated on results. Patient will need either MRCP or ERCP and gastric neurology consult. There is concern for metastasis pocking patient's common bile duct. Patient will be transferred to [facility]. Undiagnosed new problem with uncertain prognosis? @ -No Drug Therapy requiring intensive monitoring for toxicity (Heparin, Nitro, Insulin, Cardizem)? @ -No Were any procedures done? @ -No Diagnosis/symptom? @ -Ascending cholangitis Acute, or Chronic, or Acute on Chronic? @ -Acute Uncomplicated (without systemic symptoms) or Complicated (systemic symptoms)? @ -default Side effects of treatment? @ -No Exacerbation, Progression, or Severe Exacerbation? @ -No Poses a threat to life or bodily function? How? (Chest pain, [place], [place], pneumonia, PE, COPD, DKA, ARF, appy, cholecystitis, CVA, Diverticulitis, Homicidal, Suicidal, threat to staff... and all critical care pts) @ -No - Lab Data Result diagrams: 03/03/23 14:11 03/03/23 14:11 Lab Results 03/03/23 03/03/23 03/03/23 Range/Units 14:11 14:11 14:11 WBC 8.5 (3.8-10.6) k/uL RBC 3.48 L (4.30-5.90) m/uL Hgb 10.6 L (13.0-17.5) gm/dL Hct 32.4 L (39.0-53.0) % MCV 92.9 (80.0-100.0) fL MCH 30.5 (25.0-35.0) pg MCHC 32.8 (31.0-37.0) g/dL RDW 14.9 (11.5-15.5) % Plt Count 228 (150-450) k/uL MPV 7.9 Neutrophils % 86 % Lymphocytes % 7 % Monocytes % 4 % Eosinophils % 1 % Basophils % 0 % Neutrophils # 7.3 (1.3-7.7) k/uL Lymphocytes # 0.6 L (1.0-4.8) k/uL Monocytes # 0.4 (0-1.0) k/uL Eosinophils # 0.1 (0-0.7) k/uL Basophils # 0.0 (0-0.2) k/uL PT 11.4 (10.0-12.5) sec INR 1.1 (<1.2) APTT 26.7 (22.0-30.0) sec Sodium 133 L (137-145) mmol/L Potassium 3.2 L (3.5-5.1) mmol/L Chloride 95 L (98-107) mmol/L Carbon Dioxide 24 (22-30) mmol/L Anion Gap 14 mmol/L BUN 20 (9-20) mg/dL Creatinine 1.10 (0.66-1.25) mg/dL Est GFR (CKD-EPI)AfAm 79 (>60 ml/min/1.73 sqM) Est GFR (CKD-EPI)NonAf 68 (>60 ml/min/1.73 sqM) Glucose 286 H (74-99) mg/dL Lactic Ac Sepsis Rflx Plasma Lactic Acid Kody (0.7-2.0) mmol/L Calcium 9.0 (8.4-10.2) mg/dL Total Bilirubin 0.9 (0.2-1.3) mg/dL AST 33 (17-59) U/L ALT 44 (4-49) U/L Alkaline Phosphatase 603 H (38-126) U/L Troponin I (0.000-0.034) ng/mL Total Protein 7.8 (6.3-8.2) g/dL Albumin 4.0 (3.5-5.0) g/dL Amylase 57 (30-110) U/L Lipase 510 H (23-300) U/L 03/03/23 03/03/23 03/03/23 Range/Units 14:11 14:11 15:51 WBC (3.8-10.6) k/uL RBC (4.30-5.90) m/uL Hgb (13.0-17.5) gm/dL Hct (39.0-53.0) % MCV (80.0-100.0) fL MCH (25.0-35.0) pg MCHC (31.0-37.0) g/dL RDW (11.5-15.5) % Plt Count (150-450) k/uL MPV Neutrophils % % Lymphocytes % % Monocytes % % Eosinophils % % Basophils % % Neutrophils # (1.3-7.7) k/uL Lymphocytes # (1.0-4.8) k/uL Monocytes # (0-1.0) k/uL Eosinophils # (0-0.7) k/uL Basophils # (0-0.2) k/uL PT (10.0-12.5) sec INR (<1.2) APTT (22.0-30.0) sec Sodium (137-145) mmol/L Potassium (3.5-5.1) mmol/L Chloride (98-107) mmol/L Carbon Dioxide (22-30) mmol/L Anion Gap mmol/L BUN (9-20) mg/dL Creatinine (0.66-1.25) mg/dL Est GFR (CKD-EPI)AfAm (>60 ml/min/1.73 sqM) Est GFR (CKD-EPI)NonAf (>60 ml/min/1.73 sqM) Glucose (74-99) mg/dL Lactic Ac Sepsis Rflx Y Plasma Lactic Acid Kody 2.1 H* (0.7-2.0) mmol/L Calcium (8.4-10.2) mg/dL Total Bilirubin (0.2-1.3) mg/dL AST (17-59) U/L ALT (4-49) U/L Alkaline Phosphatase (38-126) U/L Troponin I 0.016 (0.000-0.034) ng/mL Total Protein (6.3-8.2) g/dL Albumin (3.5-5.0) g/dL Amylase (30-110) U/L Lipase (23-300) U/L 03/03/23 Range/Units 18:12 WBC (3.8-10.6) k/uL RBC (4.30-5.90) m/uL Hgb (13.0-17.5) gm/dL Hct (39.0-53.0) % MCV (80.0-100.0) fL MCH (25.0-35.0) pg MCHC (31.0-37.0) g/dL RDW (11.5-15.5) % Plt Count (150-450) k/uL MPV Neutrophils % % Lymphocytes % % Monocytes % % Eosinophils % % Basophils % % Neutrophils # (1.3-7.7) k/uL Lymphocytes # (1.0-4.8) k/uL Monocytes # (0-1.0) k/uL Eosinophils # (0-0.7) k/uL Basophils # (0-0.2) k/uL PT (10.0-12.5) sec INR (<1.2) APTT (22.0-30.0) sec Sodium (137-145) mmol/L Potassium (3.5-5.1) mmol/L Chloride (98-107) mmol/L Carbon Dioxide (22-30) mmol/L Anion Gap mmol/L BUN (9-20) mg/dL Creatinine (0.66-1.25) mg/dL Est GFR (CKD-EPI)AfAm (>60 ml/min/1.73 sqM) Est GFR (CKD-EPI)NonAf (>60 ml/min/1.73 sqM) Glucose (74-99) mg/dL Lactic Ac Sepsis Rflx Plasma Lactic Acid Kody 1.9 (0.7-2.0) mmol/L Calcium (8.4-10.2) mg/dL Total Bilirubin (0.2-1.3) mg/dL AST (17-59) U/L ALT (4-49) U/L Alkaline Phosphatase (38-126) U/L Troponin I (0.000-0.034) ng/mL Total Protein (6.3-8.2) g/dL Albumin (3.5-5.0) g/dL Amylase (30-110) U/L Lipase (23-300) U/L Disposition Clinical Impression: Ascending cholangitis Disposition: OTHER INSTITUTION NOT DEFINED Is patient prescribed a controlled substance at d/c from ED?: No Referrals: Farooq Solis MD [Primary Care Provider] - 1-2 days Time of Disposition: 19:44 - Out of Hospital Transfer - Req. Specs Out of Hospital Transfer - Requested Specifics: Other Emergency Center
--- NOTE | 2023-03-03 18:30 | CT ---
EXAMINATION TYPE: CT abdomen pelvis w con CT DLP: 1077.5 mGycm, Automated exposure control for dose reduction was used. DATE OF EXAM: 03/03/2023 5:59 PM COMPARISON: 10/01/2022 CLINICAL INDICATION:Male, 67 years old with history of Abdominal pain; abdominal pain, hx of kidney c a TECHNIQUE: Axial CT of the ;CT abdomen pelvis w con;Sagittal and coronal reformats were created on a separate workstation. Contrast used:80cc mL of Isovue 300 with IV Contrast, (none if empty) Oral contrast used: without Oral Contrast (none if empty) FINDINGS: LOWER CHEST: The heart is moderately enlarged for size. There is coronary artery atherosclerosis. Mil d gynecomastia changes. ABDOMEN LIVER: Unremarkable GALLBLADDER AND BILE DUCTS: Gallstone present. There is thickening of the gallbladder wall measuring up to 6 mm. Hyperemia of the mucosa is also present. There is hyperemia of the extrahepatic biliary s ystem. PANCREAS: Unremarkable. SPLEEN: A splenule is present near the medial aspect of the spleen. ADRENAL GLANDS: Unremarkable. KIDNEYS AND URETERS: Nonobstructing calculus. Right nonobstructing calculus measuring up to 10 mm. Ri ght renal cyst present. The left kidney surgically absent. No evidence for recurrence. PELVIS BLADDER: Unremarkable REPRODUCTIVE: Unremarkable. ABDOMEN & PELVIS STOMACH AND BOWEL: No evidence of bowel obstruction. Second/third portion duodenal diverticulum. Scat tered colonic diverticula. PERITONEUM/RETROPERITONEUM: No evidence of pneumoperitoneum or free fluid. VASCULATURE: No evidence of aortic aneurysm. Common iliac vein stent grafts are present. MUSCULOSKELETAL: No acute osseous abnormalities, scattered sclerotic foci throughout the osseous stru ctures similar 10/01/2022. LYMPH NODES: No gross evidence for lymphadenopathy. SOFT TISSUE/ABDOMINAL WALL: Right inguinal fatty changes. IMPRESSION: 1. There is hyperemia of the extrahepatic biliary system with thickened appearance of the gallbladde r wall with hyperemia of the gallbladder mucosa. Correlate for cholecystitis and ascending cholangiti s. 2. Scattered colonic diverticula. 3. Post nephrectomy changes without evidence for local recurrence. 4. Scattered sclerotic foci throughout the osseous structures of unknown significance. These were se en on prior CT 10/01/2022 findings could represent treated metastatic disease. Findings are stable comp ared to 10/01/2022.
[2023-03-03] MEDS ORDERED: LEVOFLOXACIN 750MG-D5W PMX 750 MG in DEXTROSE/WATER 1 150ML.BAG IVPB STA (19:31)
[2023-03-03] MEDS ORDERED: SODIUM CHLORIDE 0.9% 1,000 ML IV STA (19:31)
[2023-03-03] MEDS ORDERED: metroNIDAZOLE-NS PMX 500 MG in SALINE 1 100ML.BAG IVPB STA (19:41)
[2023-03-03] MEDS ORDERED: SODIUM CHLORIDE 0.9% 500 ML 500 ML IV STA (19:46)
[2023-03-03 20:37] VITALS: BP 117/66
== END 2023-03-03 21:08 | disposition other institution (70) ==
LOC: EC 13:49
DX: K83.09 Other cholangitis (principal); I25.10 Atherosclerotic heart disease of native coronary artery without angina pectoris; E11.22 Type 2 diabetes mellitus with diabetic chronic kidney disease; E11.36 Type 2 diabetes mellitus with diabetic cataract; E11.621 Type 2 diabetes mellitus with foot ulcer; I12.9 Hypertensive chronic kidney disease with stage 1 through stage 4 chronic kidney disease, or unspecified chronic kidney disease; N18.30 Chronic kidney disease, stage 3 unspecified; E78.5 Hyperlipidemia, unspecified; I25.2 Old myocardial infarction; J44.9 Chronic obstructive pulmonary disease, unspecified; Z86.73 Personal history of transient ischemic attack (TIA), and cerebral infarction without residual deficits; F17.200 Nicotine dependence, unspecified, uncomplicated; Z88.0 Allergy status to penicillin; Z88.7 Allergy status to serum and vaccine; Z88.8 Allergy status to other drugs, medicaments and biological substances; Z79.02 Long term (current) use of antithrombotics/antiplatelets; Z79.84 Long term (current) use of oral hypoglycemic drugs; Z79.899 Other long term (current) drug therapy
CPT/HCPCS: 36415; 93005; 80053; 82150; 83605; 83690; 84484; 85025; 85610; 85730; 87040; 71046; 74177; 99285; 96365; 96375 ×4; 96376; J2405; J3490; J1170; J1956; Q9967; J1836

== ENCOUNTER 2023-03-19 23:46 | Inpatient (IN) | payer MEDICARE, BC ==
[2023-03-19 23:52] LABS: Glucose,Whole Blood >600 mg/dL (70-110)
[2023-03-20] MEDS ORDERED: INSULIN REGULAR 100 UNIT/ML VIAL (IV) IV STA (00:11)
[2023-03-20] MEDS ORDERED: SODIUM CHLORIDE 0.9% 1,000 ML IV ONE ×2 (00:12→02:09)
[2023-03-20 00:37] LABS: Basophils % (A) 0 %; Eosinophils # (A) 0.1 k/uL (0-0.7); Eosinophils % (A) 1 %; HCT 31.5 % (39.0-53.0); HGB 10.1 gm/dL (13.0-17.5); Hypochromasia Marked; Lymphocytes # (A) 0.4 k/uL (1.0-4.8); Lymphocytes % (A) 4 %; MCH 29.2 pg (25.0-35.0); MCV 91.4 fL (80.0-100.0); Mean Platelet Volume 9.3; Monocytes # (A) 0.3 k/uL (0-1.0); Monocytes % (A) 3 %; Neutrophils # (A) 8.2 k/uL (1.3-7.7); Neutrophils % (A) 91 %; Platelet Count 212 k/uL (150-450); RBC 3.45 m/uL (4.30-5.90)
[2023-03-20 00:54] LABS: ALT 16 U/L (4-49); AST 21 U/L (17-59); African American GFR (CKD) 71 (>60 ml/min/1.73 sqM); Albumin 3.5 g/dL (3.5-5.0); Alkaline Phosphatase 154 U/L (38-126); Anion Gap 19 mmol/L; Blood Urea Nitrogen 10 mg/dL (9-20); Calcium 9.2 mg/dL (8.4-10.2); Carbon Dioxide 22 mmol/L (22-30); Chloride 93 mmol/L (98-107); Non-African American GFR(CKD) 62 (>60 ml/min/1.73 sqM); Sodium 134 mmol/L (137-145); Total Bilirubin 0.8 mg/dL (0.2-1.3); Total Protein 6.8 g/dL (6.3-8.2)
--- NOTE | 2023-03-20 00:57 | ED ---
General Adult HPI - General Chief complaint: Recheck/Abnormal Lab/Rx Stated complaint: Hyperglycemia Time Seen by Provider: 03/19/23 23:49 Source: EMS Mode of arrival: EMS Limitations: no limitations - History of Present Illness Initial comments: This patient is a 67-year-old man brought by ambulance to have evaluation of generalized weakness. The patient recently had laparoscopic cholecystectomy (@ [facility]) and relates that he was told to hold his diabetic medication following the surgery. EMS did arrive and find that the patient's blood sugar was off scale on their meter. Patient denies any new symptoms of infection but he does relate that he is currently taking antibiotic infusions through a PICC line for right foot ulcer that was infected. Patient believes he is having vancomycin every 12 hours. Denies being aware of fevers. No cough or dyspnea. No change in urination. -: days(s) Severity scale (1-10): 0 Consistency: constant Improves with: none Worsens with: none Associated Symptoms: weakness Treatments Prior to Arrival: none - Related Data Home Medications Medication Instructions Recorded Confirmed Clopidogrel Bisulfate [Clopidogrel] 75 mg PO DAILY 02/04/14 03/20/23 Fluticasone Nasal [place] [Flonase 1 spr EA NOSTRIL DAILY PRN 04/29/19 03/20/23 Nasal [place]] Gabapentin 600 mg PO TID 11/04/22 03/20/23 hydrOXYzine HCL [Atarax] 50 mg PO HS PRN 11/04/22 03/20/23 Calcium Carb-Vit D 500Mg-5Mcg 1 tab PO TID-W/MEALS 11/24/22 03/20/23 [Oscal 500+D 5 Mcg (200 Iu)] oxyCODONE-APAP 10-325MG [Percocet 1 tab PO Q6H PRN 01/21/23 03/20/23 10-325 mg] DAPTOmycin [Cubicin] 340 mg IV DAILY 03/20/23 03/20/23 Furosemide [Lasix] 20 mg PO DAILY PRN 03/20/23 03/20/23 Previous Rx's Medication Instructions Recorded Aspirin 81 mg PO DAILY #30 tab 11/11/22 Atorvastatin [Lipitor] 40 mg PO DAILY #30 tab 11/11/22 Nubeqa 300 Mg Tablet 600 mg PO BID #0 11/11/22 carvediloL [Coreg] 3.125 mg PO BID-W/MEALS 30 Days 11/11/22 #60 tab Potassium Chloride [K-Tab ER] 20 meq PO BID #60 tab 11/25/22 Magnesium Oxide [Mag-Ox] 400 mg PO DAILY tab 01/26/23 DAPTOmycin [Cubicin] 500 mg IVPB Q24HR #0 each 03/30/23 Ertapenem [INVanz] 1 gm IVPB DAILY each 03/30/23 Nystatin 100,000 Unit/gm Powd 1 applic TOPICAL BID 10 Days #100 03/30/23 [Mycostatin Powder] each glipiZIDE [Glucotrol] 10 mg PO AC-BID 30 Days #60 tab 03/30/23 lisinopriL [Zestril] 2.5 mg PO DAILY 30 Days #30 tab 03/30/23 Allergies Allergy/AdvReac Type Severity Reaction Status Date / Time Penicillins Allergy Unknown Verified 03/20/23 08:07 Childhood Tetanus Vaccines and Toxoid Allergy Unknown Verified 03/20/23 08:07 Childhood metformin AdvReac Nausea & Verified 03/20/23 08:07 Vomiting Review of Systems ROS Statement: Those systems with pertinent positive or pertinent negative responses have been documented in the HPI. ROS Other: All systems not noted in ROS Statement are negative. Constitutional: Reports: weakness. Denies: fever, chills Eyes: Denies: vision change ENT: Denies: throat pain Respiratory: Denies: cough, dyspnea Cardiovascular: Denies: chest pain, palpitations, edema, syncope Gastrointestinal: Denies: abdominal pain, vomiting, diarrhea Genitourinary: Denies: dysuria, frequency, hematuria Musculoskeletal: Denies: back pain Skin: Reports: other (Foot ulcer). Denies: rash Neurological: Reports: paresthesias. Denies: headache, weakness, numbness Past Medical History Past Medical History: Coronary Artery Disease (CAD), Cancer, Chest Pain / Angina, CVA/TIA, Diabetes Mellitus, GI Bleed, Hyperlipidemia, Hypertension, Myocardial Infarction (HI), Prostate Disorder, Renal Disease, Sleep Apnea/CPAP/BIPAP Additional Past Medical History / Comment(s): SHINGLES 2013 , C-DIFF 2012., HX DIVERTICULOSIS, NEUROPATHY IN HANDS & FEET., LEFT KIDNEY CANCER WITH NEPHRECTOMY URETER & PART OF BLADDER & LYMPH NODES REMOVED., HAS CYST RIGHT KIDNEY, STAGE 3 KIDNEY DISEASE., HX OF SLEEP APNEA (SURGERY)., NON-HODGKINS LYMPHOMA -LAST PET SCAN NEGATIVE., STATES NO RESIDUAL EFFECT FROM HX CVA/TIA., 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 Last Myocardial Infarction Date:: 2012 History of Any Multi-Drug Resistant Organisms: None Reported Date of last positivie culture/infection: 01/22/23 MDRO Source:: Toe Right FIrst Past Surgical History: Bowel Resection, Heart Catheterization, Heart Catheterization With Stent, Hernia Repair, Tonsillectomy Additional Past Surgical History / Comment(s): 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 , CIRCUMCISION cataracts., PIECE OF METAL REMOVED FROM ABD (WAR WOUND) - DEVELOPED SCAR TISSUE & PART OF LARGE INTESTINE REMOVED., ABD HERNIA REPAIR. SX FOR SLEEP APNEA. COLONOSCO PY/POLYPECTOMY., SUDHEER ILIAC VEIN STENTING.,, STATES TOTAL OF 4 CARDIAC STENTS, HEART CATH 12/2018. Past Anesthesia/Blood Transfusion Reactions: No Reported Reaction Date of Last Stent Placement:: 01/2014 Past Psychological History: No Psychological Hx Reported Smoking Status: Current every day smoker Past Alcohol Use History: Occasional Past Drug Use History: None Reported - Past Family History Mother Additional Family Medical History / Comment(s): from complications from broken hip. Father Family Medical History: Cancer Sister(s) Family Medical History: Diabetes Mellitus, Deep Vein Thrombosis (DVT) General Exam General appearance: alert, in no apparent distress Head exam: Present: atraumatic, normocephalic Eye exam: Present: normal appearance. Absent: scleral icterus, conjunctival injection ENT exam: Present: mucous membranes dry Neck exam: Present: normal inspection Respiratory exam: Present: normal lung sounds bilaterally. Absent: respiratory distress, wheezes, rales, rhonchi, stridor Cardiovascular Exam: Present: regular rate, normal rhythm, normal heart sounds. Absent: systolic murmur, diastolic murmur, rubs, gallop GI/Abdominal exam: Present: soft. Absent: distended, tenderness, guarding, rebound, rigid, mass Extremities exam: Present: normal capillary refill. Absent: pedal edema, calf tenderness Back exam: Present: normal inspection. Absent: CVA tenderness (R), CVA tenderness (L) Neurological exam: Present: alert Skin exam: Present: warm, dry, normal color, other (Right foot with ulceration plantar aspect near calcaneous) Course Vital Signs 03/19/23 03/20/23 03/20/23 23:48 00:00 01:00 Temperature 99.5 F Pulse Rate 96 90 91 Respiratory 18 18 18 Rate Blood Pressure 118/84 112/72 127/73 O2 Sat by Pulse 99 99 98 Oximetry 03/20/23 03/20/23 03/20/23 02:00 05:00 06:00 Temperature Pulse Rate 75 73 71 Respiratory 18 18 18 Rate Blood Pressure 103/58 115/67 111/58 O2 Sat by Pulse 98 96 98 Oximetry 03/20/23 03/20/23 03/20/23 07:55 09:30 12:00 Temperature Pulse Rate 64 61 58 L Respiratory 18 18 18 Rate Blood Pressure 120/71 102/61 103/62 O2 Sat by Pulse 99 99 99 Oximetry 03/20/23 03/20/23 03/20/23 13:18 15:00 16:55 Temperature 98.2 F Pulse Rate 110 H 64 83 Respiratory 18 18 18 Rate Blood Pressure 122/52 104/55 111/62 O2 Sat by Pulse 97 99 94 L Oximetry 03/20/23 03/20/23 03/21/23 18:50 22:00 00:00 Temperature Pulse Rate 89 80 84 Respiratory 18 18 16 Rate Blood Pressure 134/73 102/60 122/72 O2 Sat by Pulse 96 95 94 L Oximetry EKG Findings - EKG Results: EKG: interpreted by ERMD, sinus rhythm (With occasional PVC, Rate 89 bpm) - Blocks, [place], Hypertrophy, ST Abn: AV and intraventricular conduction: intraventricular conduction delay Medical Decision Making - Medical Decision Making The patient had chest x-ray which I interpreted as negative for acute infiltrate, pneumothorax, congestive heart failure Was pt. sent in by a medical professional or institution (, PA, VENEER PRODUCTION MACHINE OPERATOR, urgent care, hospital, or care home...) When possible be specific @ -[No] Did you speak to anyone other than the patient for history (EMS, parent, family, police, friend...)? What history was obtained from this source @ -[No] Did you review nursing and triage notes (agree or disagree)? Why? @ -[I reviewed and agree with nursing and triage notes] Were old charts reviewed (outside hosp., previous admission, EMS record, old EKG, old radiological studies, urgent care reports/EKG's, care home records)? Report findings @ -[No old charts were reviewed] Differential Diagnosis (chest pain, altered mental status, abdominal pain women, abdominal pain men, vaginal bleeding, weakness, fever, dyspnea, syncope, headache, dizziness, GI bleed, back pain, seizure, CVA, palpatations, mental health, musculoskeletal)? @ -[Differential Weakness: Hypoglycemia, shock, sepsis, hyponatremia, anemia, infection, HI, ETOH, adverse medicine reaction, overdose, stroke, this is not meant to be an all-inclusive list. EKG interpreted by me (3pts min.). @ -[I interpreted As above] X-rays interpreted by me (1pt min.). @ -[I interpreted as above CT interpreted by me (1pt min.). @ -[None done] U/S interpreted by me (1pt. min.). @ -[None done] What testing was considered but not performed or refused? (CT, X-rays, U/S, labs)? Why? @ -[None] What meds were considered but not given or refused? Why? @ -[None] Did you discuss the management of the patient with other professionals (professionals i.e. , PA, VENEER PRODUCTION MACHINE OPERATOR, lab, RT, psych nurse, transition social worker, skid road man, teacher, learning and development officer, hospice case manager)? Give summary @ -[Is discussed with admitting physician and treatment recommendations are incorporated Was smoking cessation discussed for >3mins.? @ -[No] Was critical care preformed (if so, how long)? @ -[Yes, 30 minutes Were there social determinants of health that impacted care today? How? (Homelessness, low income, unemployed, alcoholism, drug addiction, transportation, low edu. Level, literacy, decrease access to med. care, care home, rehab)? @ -[No] Was there de-escalation of care discussed even if they declined (Discuss DNR or withdrawal of care, Hospice)? DNR status @ -[No] What co-morbidities impacted this encounter? (DM, HTN, Smoking, COPD, CAD, Cancer, CVA, ARF, Chemo, Hep., AIDS, mental health diagnosis, sleep apnea, morbid obesity)? @ -[Diabetes, chronic kidney disease, current foot infection Was patient admitted / discharged? Hospital course, mention meds given and ro [place], prescriptions, significant lab abnormalities, going to OR and other pertinent info. @ -[Admitted to have further medications for control of his diabetes and to have evaluation of the foot infection. Undiagnosed new problem with uncertain prognosis? @ -[No] Drug Therapy requiring intensive monitoring for toxicity (Heparin, Nitro, Insulin, Cardizem)? @ -[Insulin drip Were any procedures done? @ -[No] Diagnosis/symptom? @ -[Diabetes with uncontrolled blood sugar, possible DKA Diabetic foot infection Elevated troponin, possible NSTEMI Acute, or Chronic, or Acute on Chronic? @ -[Acute on chronic Uncomplicated (without systemic symptoms) or Complicated (systemic symptoms)? @ -[Complicated generalized weakness Side effects of treatment? @ -[No] Exacerbation, Progression, or Severe Exacerbation? @ -[No] Poses a threat to life or bodily function? How? (Chest pain, [place], HI, pneumonia, PE, COPD, DKA, ARF, appy, cholecystitis, CVA, Diverticulitis, Homicidal, Suicidal, threat to staff... and all critical care pts) @ -[This there is risk of foot infection worsening to sepsis/ - Lab Data Result diagrams: 03/30/23 07:31 03/30/23 07:31 Lab Results 03/19/23 03/20/23 03/20/23 Range/Units 23:50 00:20 00:20 WBC 9.0 (3.8-10.6) k/uL RBC 3.45 L (4.30-5.90) m/uL Hgb 10.1 L (13.0-17.5) gm/dL Hct 31.5 L (39.0-53.0) % MCV 91.4 (80.0-100.0) fL MCH 29.2 (25.0-35.0) pg MCHC 32.0 (31.0-37.0) g/dL RDW 15.0 (11.5-15.5) % Plt Count 212 (150-450) k/uL MPV 9.3 Neutrophils % 91 % Lymphocytes % 4 % Monocytes % 3 % Eosinophils % 1 % Basophils % 0 % Neutrophils # 8.2 H (1.3-7.7) k/uL Lymphocytes # 0.4 L (1.0-4.8) k/uL Monocytes # 0.3 (0-1.0) k/uL Eosinophils # 0.1 (0-0.7) k/uL Basophils # 0.0 (0-0.2) k/uL Hypochromasia Marked Sodium 134 L (137-145) mmol/L Potassium 3.3 L (3.5-5.1) mmol/L Chloride 93 L (98-107) mmol/L Carbon Dioxide 22 (22-30) mmol/L Anion Gap 19 mmol/L BUN 10 (9-20) mg/dL Creatinine 1.20 (0.66-1.25) mg/dL Est GFR (CKD-EPI)AfAm 71 (>60 ml/min/1.73 sqM) Est GFR (CKD-EPI)NonAf 62 (>60 ml/min/1.73 sqM) Glucose 696 H* (74-99) mg/dL POC Glucose (mg/dL) >600 H (70-110) mg/dL POC Glu Sales Marketing Coordinator ID Aj, Anna Calcium 9.2 (8.4-10.2) mg/dL Total Bilirubin 0.8 (0.2-1.3) mg/dL AST 21 (17-59) U/L ALT 16 (4-49) U/L Alkaline Phosphatase 154 H (38-126) U/L Troponin I (0.000-0.034) ng/mL Total Protein 6.8 (6.3-8.2) g/dL Albumin 3.5 (3.5-5.0) g/dL Urine Color Urine Appearance (Clear) Urine pH (5.0-8.0) Ur Specific [place] (1.001-1.035) Urine Protein (Negative) Urine Glucose (UA) (Negative) Urine Ketones (Negative) Urine Blood (Negative) Urine Nitrite (Negative) Urine Bilirubin (Negative) Urine Urobilinogen (<2.0) mg/dL Ur Leukocyte Esterase (Negative) Urine RBC (0-5) /hpf Urine WBC (0-5) /hpf Urine Mucus (None) /hpf Acetone, Qual Negative (Negative) 03/20/23 03/20/23 03/20/23 Range/Units 00:20 02:49 03:15 WBC (3.8-10.6) k/uL RBC (4.30-5.90) m/uL Hgb (13.0-17.5) gm/dL Hct (39.0-53.0) % MCV (80.0-100.0) fL MCH (25.0-35.0) pg MCHC (31.0-37.0) g/dL RDW (11.5-15.5) % Plt Count (150-450) k/uL MPV Neutrophils % % Lymphocytes % % Monocytes % % Eosinophils % % Basophils % % Neutrophils # (1.3-7.7) k/uL Lymphocytes # (1.0-4.8) k/uL Monocytes # (0-1.0) k/uL Eosinophils # (0-0.7) k/uL Basophils # (0-0.2) k/uL Hypochromasia Sodium (137-145) mmol/L Potassium (3.5-5.1) mmol/L Chloride (98-107) mmol/L Carbon Dioxide (22-30) mmol/L Anion Gap mmol/L BUN (9-20) mg/dL Creatinine (0.66-1.25) mg/dL Est GFR (CKD-EPI)AfAm (>60 ml/min/1.73 sqM) Est GFR (CKD-EPI)NonAf (>60 ml/min/1.73 sqM) Glucose (74-99) mg/dL POC Glucose (mg/dL) >600 H (70-110) mg/dL POC Glu Sales Marketing Coordinator ID Aj, Anna Calcium (8.4-10.2) mg/dL Total Bilirubin (0.2-1.3) mg/dL AST (17-59) U/L ALT (4-49) U/L Alkaline Phosphatase (38-126) U/L Troponin I 0.223 H* (0.000-0.034) ng/mL Total Protein (6.3-8.2) g/dL Albumin (3.5-5.0) g/dL Urine Color Colorless Urine Appearance Clear (Clear) Urine pH 5.5 (5.0-8.0) Ur Specific [place] 1.024 (1.001-1.035) Urine Protein Negative (Negative) Urine Glucose (UA) 4+ H (Negative) Urine Ketones Negative (Negative) Urine Blood Small H (Negative) Urine Nitrite Negative (Negative) Urine Bilirubin Negative (Negative) Urine Urobilinogen <2.0 (<2.0) mg/dL Ur Leukocyte Esterase Negative (Negative) Urine RBC 4 (0-5) /hpf Urine WBC 3 (0-5) /hpf Urine Mucus Rare H (None) /hpf Acetone, Qual (Negative) 03/20/23 Range/Units 04:48 WBC (3.8-10.6) k/uL RBC (4.30-5.90) m/uL Hgb (13.0-17.5) gm/dL Hct (39.0-53.0) % MCV (80.0-100.0) fL MCH (25.0-35.0) pg MCHC (31.0-37.0) g/dL RDW (11.5-15.5) % Plt Count (150-450) k/uL MPV Neutrophils % % Lymphocytes % % Monocytes % % Eosinophils % % Basophils % % Neutrophils # (1.3-7.7) k/uL Lymphocytes # (1.0-4.8) k/uL Monocytes # (0-1.0) k/uL Eosinophils # (0-0.7) k/uL Basophils # (0-0.2) k/uL Hypochromasia Sodium (137-145) mmol/L Potassium (3.5-5.1) mmol/L Chloride (98-107) mmol/L Carbon Dioxide (22-30) mmol/L Anion Gap mmol/L BUN (9-20) mg/dL Creatinine (0.66-1.25) mg/dL Est GFR (CKD-EPI)AfAm (>60 ml/min/1.73 sqM) Est GFR (CKD-EPI)NonAf (>60 ml/min/1.73 sqM) Glucose (74-99) mg/dL POC Glucose (mg/dL) 598 H (70-110) mg/dL POC Glu Sales Marketing Coordinator ID Aj, Anna Calcium (8.4-10.2) mg/dL Total Bilirubin (0.2-1.3) mg/dL AST (17-59) U/L ALT (4-49) U/L Alkaline Phosphatase (38-126) U/L Troponin I (0.000-0.034) ng/mL Total Protein (6.3-8.2) g/dL Albumin (3.5-5.0) g/dL Urine Color Urine Appearance (Clear) Urine pH (5.0-8.0) Ur Specific [place] (1.001-1.035) Urine Protein (Negative) Urine Glucose (UA) (Negative) Urine Ketones (Negative) Urine Blood (Negative) Urine Nitrite (Negative) Urine Bilirubin (Negative) Urine Urobilinogen (<2.0) mg/dL Ur Leukocyte Esterase (Negative) Urine RBC (0-5) /hpf Urine WBC (0-5) /hpf Urine Mucus (None) /hpf Acetone, Qual (Negative) Disposition Clinical Impression: Right leg swelling, Diabetic foot ulcer, Uncontrolled diabetes mellitus, Elevated troponin Disposition: ADMITTED IP TO THIS [facility] Condition: Poor
[2023-03-20 01:04] LABS: Potassium 3.3 mmol/L (3.5-5.1)
[2023-03-20 01:06] LABS: Glucose 696 mg/dL (74-99)
--- NOTE | 2023-03-20 02:03 | XR ---
EXAM: XR Chest, 2 Views CLINICAL HISTORY: ITS.REASON XR Reason: weakness TECHNIQUE: Frontal and lateral views of the chest. COMPARISON: No relevant prior studies available. FINDINGS: Lungs: No consolidation or mass. Slightly prominent interstitial markings. Pleural space: No effusion. Heart: No cardiomegaly. Bones/joints: No acute findings. IMPRESSION: Slightly prominent interstitial markings.
[2023-03-20 02:51] LABS: Glucose,Whole Blood >600 mg/dL (70-110)
[2023-03-20 03:35] LABS: Appearance,Urine Clear (Clear); Bilirubin,Urine Negative (Negative); Blood,Urine Small (Negative); Color,Urine Colorless; Glucose,Urine (UA) 4+ (Negative); Ketones,Urine Negative (Negative); Leukocyte Esterase,Urine Negative (Negative); Mucus,Urine Rare /hpf; Nitrite,Urine Negative (Negative); PH, Urine 5.5 (5.0-8.0); Protein,Urine Negative (Negative); RBC,Urine 4 /hpf (0-5); Specific Gravity,Urine 1.024 (1.001-1.035); Urobilinogen,Urine <2.0 mg/dL (<2.0); WBC,Urine 3 /hpf (0-5)
[2023-03-20] MEDS ORDERED: MORPHINE SULFATE 4 MG/ML SYRINGE IV STA (04:37)
[2023-03-20 04:50] LABS: Glucose,Whole Blood 598 mg/dL (70-110)
[2023-03-20] MEDS ORDERED: oxyCODONE-APAP 10-325MG 1 EACH TAB PO STA (05:39)
[2023-03-20] MEDS ORDERED: MORPHINE SULFATE ER 30 MG TABLET PO STA (05:40)
[2023-03-20] MEDS ORDERED: ACETAMINOPHEN TAB 325 MG TAB PO PRN (06:27)
[2023-03-20] MEDS ORDERED: NALOXONE 0.4 MG/ML 1 ML VIAL IV PRN (06:27)
[2023-03-20] MEDS ORDERED: glipiZIDE 10 MG TAB PO PRN (06:39)
[2023-03-20] MEDS ORDERED: hydrOXYzine HCL 25 MG TAB PO PRN (06:39)
[2023-03-20] MEDS ORDERED: DEXTROSE 50% SYRINGE 50 ML IVP PRN ×4 (06:42→18:25)
[2023-03-20] MEDS ORDERED: NON FORMULARY DRUG (Vancomycin Hcl In 5 % Dextrose [Vancomycin 1 Gram/250 Ml-D5w] 1 GM/250 IV SCH (06:45)
[2023-03-20 06:56] LABS: Glucose,Whole Blood >600 mg/dL (70-110)
[2023-03-20] MEDS ORDERED: INSULIN REGULAR 100 UNIT in SODIUM CHLORIDE 0.9% 100 ML IV SCH (07:00)
--- NOTE | 2023-03-20 07:42 | XR ---
EXAMINATION TYPE: XR Hip LT and AP Pelvis DATE OF EXAM: 03/20/2023 CLINICAL HISTORY: pain TECHNIQUE: AP and frogleg views of the left hip are obtained. Single view of the pelvis is also subm itted. COMPARISON: None. FINDINGS: There is no acute fracture/dislocation evident. The joint space appears within normal li mits. The overlying soft tissue appears unremarkable. Bilateral iliac stents are in place. IMPRESSION: 1. There is no acute fracture or dislocation.ICD 10 NO FRACTURE, INITIAL EVALUATION
[2023-03-20] MEDS: SODIUM CHLORIDE 0.9% 1,000 ML IV SCH ×3 (07:53→17:15)
[2023-03-20 08:25] LABS: Appearance,Urine Clear (Clear); Bilirubin,Urine Negative (Negative); Blood,Urine Small (Negative); Color,Urine Colorless; Glucose,Urine (UA) 4+ (Negative); Ketones,Urine Negative (Negative); Leukocyte Esterase,Urine Negative (Negative); Nitrite,Urine Negative (Negative); PH, Urine 5.5 (5.0-8.0); Protein,Urine Negative (Negative); RBC,Urine 2 /hpf (0-5); Specific Gravity,Urine 1.026 (1.001-1.035); Squamous Epithelial Cell,Urine <1 /hpf (0-4); Urobilinogen,Urine <2.0 mg/dL (<2.0); WBC,Urine 3 /hpf (0-5)
[2023-03-20] MEDS ORDERED: ATORVASTATIN 40 MG TAB PO SCH (09:00)
[2023-03-20 09:31] LABS: Glucose,Whole Blood >600 mg/dL (70-110)
[2023-03-20] MEDS: CLOPIDOGREL 75 MG TAB PO SCH (09:31)
[2023-03-20] MEDS: FAMOTIDINE 20 MG TAB PO SCH ×2 (09:31→22:01)
[2023-03-20] MEDS: ASPIRIN 81 MG PO SCH (09:31)
[2023-03-20] MEDS: GABAPENTIN 300 MG CAP PO SCH ×3 (09:31→22:01)
[2023-03-20] MEDS: POTASSIUM CHLORIDE ER 20 MEQ TAB.ER PO SCH ×2 (09:32→22:01)
[2023-03-20] MEDS: carvediloL 3.125 MG TAB PO SCH ×3 (09:32→18:54)
[2023-03-20] MEDS: MAGNESIUM OXIDE 400 MG TAB PO SCH (09:32)
[2023-03-20] MEDS: HEPARIN SODIUM,PORCINE 5,000 UNIT/ML 1 ML VIAL SQ SCH ×2 (09:33→22:01)
[2023-03-20] MEDS: MORPHINE SULFATE ER 30 MG TABLET PO SCH ×2 (09:33→22:07)
[2023-03-20] MEDS: NUBEQA PO SCH ×2 (09:34→20:23)
[2023-03-20] MEDS ORDERED: VANCOMYCIN 1,500 MG in SODIUM CHLORIDE 0.9% 500 ML 500 ML IVPB SCH (11:00)
[2023-03-20 11:03] LABS: Glucose,Whole Blood 321 mg/dL (70-110)
[2023-03-20] MEDS ORDERED: FUROSEMIDE 20 MG TAB PO PRN (11:28)
[2023-03-20 12:07] LABS: Glucose,Whole Blood 280 mg/dL (70-110)
[2023-03-20 13:07] LABS: Glucose,Whole Blood 191 mg/dL (70-110)
[2023-03-20 14:07] LABS: Glucose,Whole Blood 180 mg/dL (70-110)
--- NOTE | 2023-03-20 15:02 | CT ---
EXAMINATION TYPE: CT lumbar spine wo con DATE OF EXAM: 03/20/2023 COMPARISON: CT abdomen and pelvis 03/03/2023 HISTORY: 67-year-old male Fall with lower back pain TECHNIQUE: Contiguous axial scanning of the lumbar spine without IV contrast. Coronal and sagittal re constructions performed. CT DLP: 956.9 mGycm Automated exposure control for dose reduction was used. FINDINGS: 6.3 cm cortical cyst lower pole right kidney. 1.1 cm 1.1 cm right renal calculus. Cholecystectomy cli ps. Vascular stent right common iliac veins. Prominent distention of the urinary bladder. Possible tr joseph pleural effusions. Scattered sclerotic foci throughout the visualized osseous structures. Her graft facet arthropathy lo wer lumbar spine with degenerative grade 1 anterolisthesis L4-L5. Trace grade 1 retrolisthesis L2-L3. Vertebral body heights are preserved. Mild bulging discs L2-L3 and L4-L5. No large focal disc herniation or significant spinal canal stenos is. On the left, changes result in mild neural foraminal stenosis at L4-L5. IMPRESSION: 1. SCLEROTIC LESIONS THROUGHOUT THE VISUALIZED OSSEOUS STRUCTURES SUGGESTING OSSEOUS METASTATIC DISEA SE. CORRELATE FOR ANY ONCOLOGIC HISTORY. 2. MILD MULTILEVEL DEGENERATIVE DISC DISEASE. FACET ARTHROPATHY MID TO LOWER LUMBAR SPINE. 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 3. NO VERTEBRAL COMPRESSION COLLAPSE OR ACUTE FRACTURE SEEN. 4. NO LARGE FOCAL DISC HERNIATION OR YOGESH CANAL COMPROMISE SEEN. MILD LEFT NEUROFORAMINAL STENOSIS A T L4-L5.
[2023-03-20 15:08] LABS: Glucose,Whole Blood 102 mg/dL (70-110)
[2023-03-20] MEDS: DAPTOmycin 500 MG in SODIUM CHLORIDE 0.9% 50 ML IVPB SCH (15:30)
--- NOTE | 2023-03-20 15:33 | P.CRDCN ---
History of Present Illness Consult date: 03/20/23 Chief complaint: Generalized weakness History of present illness: The patient is a 67-year-old gentleman who is known to our service from before with a past medical history significant for coronary artery disease and status post CABG with unknown details as well as hypertension and dyslipidemia and diabetes and history of smoking and history of iliac vein stenting. Also the patient does have history of metastatic prostate cancer Beside that he does have history of chronic wound involving the left foot. The patient underwent recently gallbladder surgery. The surgery went uneventfully. Since the surgery about 2 weeks ago he has not been feeding well. He has been experiencing progressive weakness and decrease in the appetite as well. There was a subtle changes on his diabetic medication around the surgery. He stated that earlier today he was in the shower and he fell with no loss of consciousness. No dizziness or lightheadedness and no feeling of heart racing or fluttering and no symptoms of chest pain or chest discomfort or shortness of breath. He presented to the emergency department for further evaluation. Hemodynamically he was stable beside mild sinus tachycardia. The pressure has been stable. He underwent a workup including a chest x-ray came in to be unremarkable and EKG showing sinus mechanism with PVCs and troponin came in to be slightly abnormal. Beside that his glucose was found to be elevated at 600. No chest pain or chest discomfort and no shortness of breath but he does have overall extremely poor functional capacity with the wound of the left foot which has been managed by Dr. Knapp regularly. Currently he is on aspirin and he is on Plavix and he is on statin and he is on beta myriam we'll continue that. We'll obtain an echocardiogram for more risk stratification. The last echo showed an ejection fraction within normal limits was no significant valvular abnormalities and mild pulmonary hypertension. I with consider medical treatment for low mildly abnormal troponin at this point awaiting for the results of the echo for more risk stratification. The examination is remarkable for distant heart sounds with regular rhythm and diminished breathing sounds bilaterally and left foot nonhealing wound involving the bottom of the foot. Assessment Generalized weakness and fatigue Uncontrolled diabetes Evidence of myocardial injury was no evidence of ischemia by EKG or clinically Coronary artery disease as described above Multiple comorbid conditions Metastatic prostate cancer Plan Continue the current medical regimen Continue dual antiplatelet therapy along with a statin and beta myriam Obtain an echo for more risk stratification Follow-up with the patient Past Medical History Past Medical History: Coronary Artery Disease (CAD), Cancer, Chest Pain / Angina, CVA/TIA, Diabetes Mellitus, GI Bleed, Hyperlipidemia, Hypertension, Martin cardial Infarction ([place]), Prostate Disorder, Renal Disease, Sleep Apnea/CPAP/BIPAP Additional Past Medical History / Comment(s): SHINGLES 2013 , C-DIFF 2012., HX DIVERTICULOSIS, NEUROPATHY IN HANDS & FEET., LEFT KIDNEY CANCER WITH NEPHRECTOMY URETER & PART OF BLADDER & LYMPH NODES REMOVED., HAS CYST RIGHT KIDNEY, STAGE 3 KIDNEY DISEASE., HX OF SLEEP APNEA (SURGERY)., NON-HODGKINS LYMPHOMA -LAST PET SCAN NEGATIVE., STATES NO RESIDUAL EFFECT FROM HX CVA/TIA., AUGUST THURN S YNDROME CAUSED CHARCOT FOOT-HAS SWELLING & FX RIGHT FOOT WITH PAIN (WEARS BOOT & USES CANE). Last Myocardial Infarction Date:: 2012 History of Any Multi-Drug Resistant Organisms: None Reported Date of last positivie culture/infection: 01/22/23 MDRO Source:: Toe Right FIrst Past Surgical History: Bowel Resection, Heart Catheterization, Heart Catheterization With Stent, Hernia Repair, Tonsillectomy Additional Past Surgical History / Comment(s): 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 , CIRCUMCISION cataracts., PIECE OF METAL REMOVED FROM ABD (WAR WOUND) - DEVELOPED SCAR TISSUE & PART OF LARGE INTESTINE REMOVED., ABD HERNIA REPAIR. SX FOR SLEEP APNEA. COLONOSCOPY/POLYPECTOMY., SUDHEER ILIAC VEIN STENTING.,, STATES TOTAL OF 4 CARDIAC STENTS, HEART CATH 12/2018. Past Anesthesia/Blood Transfusion Reactions: No Reported Reaction Date of Last Stent Placement:: 01/2014 Past Psychological History: No Psychological Hx Reported Smoking Status: Current every day smoker Past Alcohol Use History: Occasional Past Drug Use History: None Reported - Past Family History Mother Additional Family Medical History / Comment(s): from complications from br oken hip. Father Family Medical History: Cancer Sister(s) Family Medical History: Diabetes Mellitus, Deep Vein Thrombosis (DVT) Medications and Allergies Home Medications Medication Instructions Recorded Confirmed Type Clopidogrel Bisulfate [Clopidogrel] 75 mg PO DAILY 02/04/14 03/20/23 History Fluticasone Nasal [place] [Flonase 1 spr EA NOSTRIL DAILY PRN 04/29/19 03/20/23 History Nasal [place]] Gabapentin 600 mg PO TID 11/04/22 03/20/23 History hydrOXYzine HCL [Atarax] 50 mg PO HS PRN 11/04/22 03/20/23 History Aspirin 81 mg PO DAILY #30 tab 11/11/22 03/20/23 Rx Atorvastatin [Lipitor] 40 mg PO DAILY #30 tab 11/11/22 03/20/23 Rx Nubeqa 300 Mg Tablet 600 mg PO BID #0 11/11/22 03/20/23 Rx carvediloL [Coreg] 3.125 mg PO BID-W/MEALS 30 Days 11/11/22 03/20/23 Rx #60 tab Calcium Carb-Vit D 500Mg-5Mcg 1 tab PO TID-W/MEALS 11/24/22 03/20/23 History [Oscal 500+D 5 Mcg (200 Iu)] Potassium Chloride [K-Tab ER] 20 meq PO BID #60 tab 11/25/22 03/20/23 Rx Morphine Sulfate ER [Ms Contin] 30 mg PO BID 01/21/23 03/20/23 History oxyCODONE-APAP 10-325MG [Percocet 1 tab PO Q6H PRN 01/21/23 03/20/23 History 10-325 mg] Magnesium Oxide [Mag-Ox] 400 mg PO DAILY tab 01/26/23 03/20/23 Rx DAPTOmycin [Cubicin] 340 mg IV DAILY 03/20/23 03/20/23 History Furosemide [Lasix] 20 mg PO DAILY PRN 03/20/23 03/20/23 History cefTRIAXone [Rocephin] 2 gm IV DAILY 03/20/23 03/20/23 History Allergies Allergy/AdvReac Type Severity Reaction Status Date / Time Penicillins Allergy Unknown Verified 03/20/23 08:07 Childhood Tetanus Vaccines and Toxoid Allergy Unknown Verified 03/20/23 08:07 Childhood metformin AdvReac Nausea & Verified 03/20/23 08:07 Vomiting Physical Exam Vitals: Vital Signs Temp Pulse Resp BP Pulse Ox 03/20/23 13:18 110 H 18 122/52 97 03/20/23 09:30 61 18 102/61 99 03/20/23 07:55 64 18 120/71 99 11/24/23 06:00 71 18 111/58 98 03/20/23 05:00 73 18 115/67 96 03/20/23 02:00 75 18 103/58 98 03/20/23 01:00 91 18 127/73 98 03/20/23 00:00 90 18 112/72 99 03/19/23 23:48 99.5 F 96 18 118/84 99 Intake and Output 03/20/23 03/20/23 03/20/23 06:59 14:59 22:59 Intake Total 61.431 Balance 61.431 Intake: Intake, IV Titration 61.431 Amount Insulin Regular 100 unit 61.431 In Sodium Chloride 0.9% 100 ml @ 0.1 UNITS/KG/HR 8.246 mls/hr IV .[id number] [facility] Rx#:[id number] Other: Weight 81.647 kg Results 03/20/23 00:20 03/20/23 00:20 Cardiac Enzymes 03/20/23 03/20/23 03/20/23 Range/Units 00:20 00:20 13:28 AST 21 (17-59) U/L Troponin I 0.223 H* 0.841 H* (0.000-0.034) ng/mL CBC 03/20/23 Range/Units 00:20 WBC 9.0 (3.8-10.6) k/uL RBC 3.45 L (4.30-5.90) m/uL Hgb 10.1 L (13.0-17.5) gm/dL Hct 31.5 L (39.0-53.0) % Plt Count 212 (150-450) k/uL Comprehensive Metabolic Panel 03/20/23 Range/Units 00:20 Sodium 134 L (137-145) mmol/L Potassium 3.3 L (3.5-5.1) mmol/L Chloride 93 L (98-107) mmol/L Carbon Dioxide 22 (22-30) mmol/L BUN 10 (9-20) mg/dL Creatinine 1.20 (0.66-1.25) mg/dL Glucose 696 H* (74-99) mg/dL Calcium 9.2 (8.4-10.2) mg/dL AST 21 (17-59) U/L ALT 16 (4-49) U/L Alkaline Phosphatase 154 H (38-126) U/L Total Protein 6.8 (6.3-8.2) g/dL Albumin 3.5 (3.5-5.0) g/dL Current Medications Generic Name Dose Route Start Last Admin Trade Name Freq PRN Reason Stop Dose Admin Acetaminophen 650 mg 03/20/23 06:27 Acetaminophen Tab 325 Mg Tab PO Q6HR PRN Mild Pain or Fever > 100.5 Aspirin 81 mg 03/20/23 09:00 03/20/23 09:31 Aspirin 81 Mg PO 81 mg DAILY RICKIE Administration Carvedilol 3.125 mg 03/20/23 07:30 03/20/23 09:33 Carvedilol 3.125 Mg Tab PO Not Given BID-W/MEALS RICKIE Clopidogrel Bisulfate 75 mg 03/20/23 09:00 03/20/23 09:31 Clopidogrel 75 Mg Tab PO 75 mg DAILY RICKIE Administration Dextrose/Water 25 ml 03/20/23 06:42 Dextrose 50% Syringe 50 Ml IVP PER PROTOCOL PRN Hypoglycemia Protocol Dextrose/Water 50 ml 03/20/23 06:42 Dextrose 50% Syringe 50 Ml IVP PER PROTOCOL PRN Hypoglycemia Protocol Famotidine 20 mg 03/20/23 09:00 03/20/23 09:31 Famotidine 20 Mg Tab PO 20 mg BID RICKIE Administration Furosemide 20 mg 03/20/23 11:28 Furosemide 20 Mg Tab PO DAILY PRN Edema Gabapentin 600 mg 03/20/23 09:00 03/20/23 09:31 Gabapentin 300 Mg Cap PO 600 mg TID RICKIE Administration Glipizide 10 mg 03/20/23 06:39 Glipizide 10 Mg Tab PO BID PRN HIGH BLOOD SUGAR Heparin Sodium (Porcine) 5,000 unit 03/20/23 09:00 03/20/23 09:33 Heparin Sodium,Porcine 5,000 Unit/Ml 1 Ml Vial SQ 5,000 unit Q12HR RICKIE Administration Hydroxyzine HCl 50 mg 03/20/23 06:39 Hydroxyzine Hcl 25 Mg Tab PO HS PRN Insomnia Sodium Chloride 1,000 mls @ 200 mls/hr 03/20/23 07:00 03/20/23 07:53 Saline 0.9% IV 200 mls/hr .Q5H RICKIE Administration Insulin Human Regular 100 unit 101 mls @ 8.246 mls/hr 03/20/23 07:00 03/20/23 13:15 / Sodium Chloride IV 0.17 units/kg/hr .[id number] [facility] 13.99 mls/hr Titration Protocol 0.1 UNITS/KG/HR Daptomycin 500 mg/ Sodium 50 mls @ 100 mls/hr 03/20/23 13:15 Chloride IVPB Q24HR [facility] Protocol Cefepime HCl 2 gm/ Sodium 100 mls @ 25 mls/hr 03/20/23 16:00 Chloride IVPB Q8HR [facility] Protocol Magnesium Oxide 400 mg 03/20/23 09:00 03/20/23 09:32 Magnesium Oxide 400 Mg Tab PO 400 mg DAILY [facility] Administration Metronidazole 500 mg 03/20/23 16:00 Metronidazole 500 Mg Tab PO TID [facility] Protocol Morphine Sulfate 30 mg 03/20/23 09:00 03/20/23 09:33 Morphine Sulfate Er 30 Mg Tablet PO Not Given BID [facility] Protocol Naloxone HCl 0.2 mg 03/20/23 06:27 Naloxone 0.4 Mg/Ml 1 Ml Vial IV Q2M PRN Opioid Reversal Non-Formulary Medication 600 mg 03/20/23 09:00 03/20/23 09:34 Nubeqa 300 Mg Tablet PO Not Given BID [facility] Oxycodone/Acetaminophen 1 each 03/20/23 06:39 Oxycodone-Apap 10-325mg 1 Each Tab PO Q6H PRN Pain Potassium Chloride 20 meq 03/20/23 09:00 03/20/23 09:32 Potassium Chloride Er 20 Meq Tab.Er PO 20 meq BID [facility] Administration Intake and Output 03/20/23 03/20/23 03/20/23 06:59 14:59 22:59 Intake Total 61.431 Balance 61.431 Intake: Intake, IV Titration 61.431 Amount Insulin Regular 100 unit 61.431 In Sodium Chloride 0.9% 100 ml @ 0.1 UNITS/KG/HR 8.246 mls/hr IV .[id number] [facility] Rx#:[id number] Other: Weight 81.647 kg 03/20/23 00:20 03/20/23 00:20
--- NOTE | 2023-03-20 15:40 | P.HPIM ---
History of Present Illness H&P Date: 03/20/23 jing dunn is 67 year old male patient who presented to the ER with concerns of generalized weakness. Patient had a recent lap sandra at [facility]. Patient reports that he has not been on his diabetic medication following lap sandra when EMS arrived they found elevated blood sugars greater than 600. Patient has been maintained on IV antibiotic vancomycin for right foot diabetic ulcers. Patient denies fevers at home. Additional medical history includes CAD, chest pain, CVA, diabetes mellitus, GI bleed, hyperlipidemia, hypertension, [place], prostate disorder, renal disease, sleep apnea, non-Hodgkin's lymphoma, heart cath with stent. Chest x-ray completed showing slightly prominent interstitial markings. Hip x-ray completed showing no acute fracture or dislocation. White blood cell 9.0 initial blood sugars greater than 600 patient was started on insulin drip. UA negative for ketones. Patient was resumed back on vancomycin. Troponin elevated 0.2-3 will order serial troponins and cardiac monitoring cardiology service is consulted. Vascular surgery and infectious disease service is consulted blood culture ordered. Repeat labs ordered. At this time patient is resting comfortably bed patient reports improvement with symptoms. Patient denies chest pain or shortness of breath. Patient denies nausea vomiting or diarrhea. Patient denies any urinary burning or frequency Review of Systems Please refer to HPI otherwise unremarkable Past Medical History Past Medical History: Coronary Artery Disease (CAD), Cancer, Chest Pain / Angina, CVA/TIA, Diabetes Mellitus, GI Bleed, Hyperlipidemia, Hypertension, Myocardial Infarction ([place]), Prostate Disorder, Renal Disease, Sleep Apnea/CPAP/BIPAP Additional Past Medical History / Comment(s): CATRACHITO 2014 , C-DIFF 2012., HX DIVERTICULOSIS, NEUROPATHY IN HANDS & FEET., LEFT KIDNEY CANCER WITH NEPHRECTOMY URETER & PART OF BLADDER & LYMPH NODES REMOVED., HAS CYST RIGHT KIDNEY, STAGE 3 KIDNEY DISEASE., HX OF SLEEP APNEA (SURGERY)., NON-HODGKINS LYMPHOMA -LAST PET SCAN NEGATIVE., STATES NO RESIDUAL EFFECT FROM HX CVA/TIA., 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 Last Myocardial Infarction Date:: 2012 History of Any Multi-Drug Resistant Organisms: None Reported Date of last positivie culture/infection: 01/22/23 MDRO Source:: Toe Right FIrst Past Surgical History: Bowel Resection, Heart Catheterization, Heart Catheterization With Stent, Hernia Repair, Tonsillectomy Additional Past Surgical History / Comment(s): 1998 TRANSITIONAL CELL CA " LT NEPHRECTOMY ,URETER AND PART OF BLADDER REMOVED,AFTERWARDS SWOLLEN LYMPH NODES WERE REMOVED- POSITIVE FOR NON HODGKINS LYMPHOMA BUT F/U PET SCAN-NO FURTHER CAN CER , POST OP INFECTION HAD PICC LINE FOR ABX. , CIRCUMCISION cataracts., PIECE OF METAL REMOVED FROM ABD (WAR WOUND) - DEVELOPED SCAR TISSUE & PART OF LARGE INTESTINE REMOVED., ABD HERNIA REPAIR. SX FOR SLEEP APNEA. COLONOSCOPY/POLYPECTOMY., SUDHEER ILIAC VEIN STENTING.,, STATES TOTAL OF 4 CARDIAC STENTS, HEART CATH 12/2018. Past Anesthesia/Blood Transfusion Reactions: No Reported Reaction Date of Last Stent Placement:: 01/2014 Past Psychological History: No Psychological Hx Reported Smoking Status: Current every day smoker Past Alcohol Use History: Occasional Past Drug Use History: None Reported - Past Family History Mother Additional Family Medical History / Comment(s): from complications from broken hip. Father Family Medical History: Cancer Sister(s) Family Medical History: Diabetes Mellitus, Deep Vein Thrombosis (DVT) Medications and Allergies Home Medications Medication Instructions Recorded Confirmed Type Clopidogrel Bisulfate [Clopidogrel] 75 mg PO DAILY 02/04/14 03/20/23 History Fluticasone Nasal [place] [Flonase 1 spr EA NOSTRIL DAILY PRN 04/29/19 03/20/23 History Nasal [place]] Gabapentin 600 mg PO TID 11/04/22 03/20/23 History hydrOXYzine HCL [Atarax] 50 mg PO HS PRN 11/04/22 03/20/23 History Aspirin 81 mg PO DAILY #30 tab 11/11/22 03/20/23 Rx Atorvastatin [Lipitor] 40 mg PO DAILY #30 tab 11/11/22 03/20/23 Rx Nubeqa 300 Mg Tablet 600 mg PO BID #0 11/11/22 03/20/23 Rx carvediloL [Coreg] 3.125 mg PO BID-W/MEALS 30 Days 11/11/22 03/20/23 Rx #60 tab Calcium Carb-Vit D 500Mg-5Mcg 1 tab PO TID-W/MEALS 11/24/22 03/20/23 History [Oscal 500+D 5 Mcg (200 Iu)] Potassium Chloride [K-Tab ER] 20 meq PO BID #60 tab 11/25/22 03/20/23 Rx Morphine Sulfate ER [Ms Contin] 30 mg PO BID 01/21/23 03/20/23 History oxyCODONE-APAP 10-325MG [Percocet 1 tab PO Q6H PRN 01/21/23 03/20/23 History 10-325 mg] Magnesium Oxide [Mag-Ox] 400 mg PO DAILY tab 01/26/23 03/20/23 Rx DAPTOmycin [Cubicin] 340 mg IV DAILY 03/20/23 03/20/23 History Furosemide [Lasix] 20 mg PO DAILY PRN 03/20/23 03/20/23 History cefTRIAXone [Rocephin] 2 gm IV DAILY 03/20/23 03/20/23 History Allergies Allergy/AdvReac Type Severity Reaction Status Date / Time Penicillins Allergy Unknown Verified 03/20/23 08:07 Childhood Tetanus Vaccines and Toxoid Allergy Unknown Verified 03/20/23 08:07 Childhood metformin AdvReac Nausea & Verified 03/20/23 08:07 Vomiting Physical Exam Vitals: Vital Signs Temp Pulse Resp BP Pulse Ox 03/20/23 09:30 61 18 102/61 99 03/20/23 07:55 64 18 120/71 99 03/20/23 06:00 71 18 111/58 98 03/20/23 05:00 73 18 115/67 96 03/20/23 02:00 75 18 103/58 98 03/20/23 01:00 91 18 127/73 98 03/20/23 00:00 90 18 112/72 99 03/19/23 23:48 99.5 F 96 18 118/84 99 Intake and Output 03/19/23 03/20/23 03/20/23 22:59 06:59 14:59 Intake Total 13.056 Balance 13.056 Intake: Intake, IV Titration 13.056 Amount Insulin Regular 100 unit 13.056 In Sodium Chloride 0.9% 100 ml @ 0.1 UNITS/KG/HR 8.246 mls/hr IV .[id number] [facility] Rx#:[id number] Other: Weight 81.647 kg Head normocephalic Neck supple Lungs clear to auscultation bilaterally no wheezing or crackles Heart regular rate and rhythm S1-S2, no rub or gallop Abdomen is soft nontender nondistended positive bowel sounds no hepatosplenomegaly Extremities bilateral lower extremity foot wounds [place] wrapped with Kerlix Neuro alert and orientated to 3 Results CBC & Chem 7: 03/20/23 00:20 03/20/23 00:20 Labs: Abnormal Lab Results - Last 24 Hours (Table) 03/19/23 03/20/23 03/20/23 Range/Units 23:50 00:20 00:20 RBC 3.45 L (4.30-5.90) m/uL Hgb 10.1 L (13.0-17.5) gm/dL Hct 31.5 L (39.0-53.0) % Neutrophils # 8.2 H (1.3-7.7) k/uL Lymphocytes # 0.4 L (1.0-4.8) k/uL Sodium 134 L (137-145) mmol/L Potassium 3.3 L (3.5-5.1) mmol/L Chloride 93 L (98-107) mmol/L Glucose 696 H* (74-99) mg/dL POC Glucose (mg/dL) >600 H (70-110) mg/dL Alkaline Phosphatase 154 H (38-126) U/L Troponin I (0.000-0.034) ng/mL Urine Glucose (UA) (Negative) Urine Blood (Negative) Urine Mucus (None) /hpf 03/20/23 03/20/23 03/20/23 Range/Units 00:20 02:49 03:15 RBC (4.30-5.90) m/uL Hgb (13.0-17.5) gm/dL Hct (39.0-53.0) % Neutrophils # (1.3-7.7) k/uL Lymphocytes # (1.0-4.8) k/uL Sodium (137-145) mmol/L Potassium (3.5-5.1) mmol/L Chloride (98-107) mmol/L Glucose (74-99) mg/dL POC Glucose (mg/dL) >600 H (70-110) mg/dL Alkaline Phosphatase (38-126) U/L Troponin I 0.223 H* (0.000-0.034) ng/mL Urine Glucose (UA) 4+ H (Negative) Urine Blood Small H (Negative) Urine Mucus Rare H (None) /hpf 03/20/23 03/20/23 03/20/23 Range/Units 04:48 06:55 07:57 RBC (4.30-5.90) m/uL Hgb (13.0-17.5) gm/dL Hct (39.0-53.0) % Neutrophils # (1.3-7.7) k/uL Lymphocytes # (1.0-4.8) k/uL Sodium (137-145) mmol/L Potassium (3.5-5.1) mmol/L Chloride (98-107) mmol/L Glucose (74-99) mg/dL POC Glucose (mg/dL) 598 H >600 H (70-110) mg/dL Alkaline Phosphatase (38-126) U/L Troponin I (0.000-0.034) ng/mL Urine Glucose (UA) 4+ H (Negative) Urine Blood Small H (Negative) Urine Mucus (None) /hpf 03/20/23 03/20/23 Range/Units 09:24 11:00 RBC (4.30-5.90) m/uL Hgb (13.0-17.5) gm/dL Hct (39.0-53.0) % Neutrophils # (1.3-7.7) k/uL Lymphocytes # (1.0-4.8) k/uL Sodium (137-145) mmol/L Potassium (3.5-5.1) mmol/L Chloride (98-107) mmol/L Glucose (74-99) mg/dL POC Glucose (mg/dL) >600 H 321 H (70-110) mg/dL Alkaline Phosphatase (38-126) U/L Troponin I (0.000-0.034) ng/mL Urine Glucose (UA) (Negative) Urine Blood (Negative) Urine Mucus (None) /hpf Assessment and Plan Assessment: 1. Uncontrolled diabetes mellitus with hyperglycemia. 2. Recent laparoscopic cholecystectomy Analy Jeffery 3. Diabetic foot ulcers maintained on IV antibiotics 4. Generalized weakness 5. Elevated troponin 6. underlying history of [id number] diabetes mellitus 7. Underlying history of essential hypertension 8. History of neuropathy 9. History of hyperlipidemia 10. History of peripheral vascular disease 11. History of coronary artery disease with history of myocardial infarction 12. History of GI bleeding 13. History of CVA 14. 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 GI prophylaxis Protonix Patient started on insulin drip Cardiology service is consulted for elevated troponin, repeat troponin ordered Infectious disease and vascular surgery consulted Patient restarted back on a vancomycin Blood cultures ordered Time with Patient: Greater than 30 (Greater than 60% of the total time spent in counseling and coordination of care)
[2023-03-20 16:02] LABS: Glucose,Whole Blood 129 mg/dL (70-110)
[2023-03-20] MEDS: CEFEPIME 2 GM in SODIUM CHLORIDE 0.9% 100 ML IVPB SCH (16:42)
[2023-03-20] MEDS: metroNIDAZOLE 500 MG TAB PO SCH ×2 (16:42→22:00)
[2023-03-20 17:59] LABS: Glucose,Whole Blood 298 mg/dL (70-110)
[2023-03-20] MEDS: INSULIN ASPART (NovoLOG) 100 UNIT/ML VIAL SQ SCH ×2 (18:51→21:44)
[2023-03-20] MEDS: oxyCODONE-APAP 10-325MG 1 EACH TAB PO PRN (18:53)
[2023-03-20] MEDS: glipiZIDE 10 MG TAB PO SCH (18:54)
[2023-03-20] MEDS ORDERED: INSULIN ASPART (NovoLOG) 100 UNIT/ML VIAL SQ SCH (21:00)
[2023-03-20 21:45] LABS: Glucose,Whole Blood 136 mg/dL (70-110)
--- NOTE | 2023-03-20 21:45 | P.CONS ---
History of Present Illness - Reason for Consult Consult date: 03/20/23 Diabetic foot ulcer Requesting physician: Estrellita Saleh - Chief Complaint Weakness and multiple falls x few days - History of Present Illness Patient is a 67-year-old male with a past medical history significant for diabetes mellitus hypertension hyperlipidemia VT patient did have a Charcot deformity of the right foot and evidence of a chronic nonhealing wound on the plantar aspect of the right foot with evidence of osteomyelitis and also a nonhealing wound to the left big toe patient was recently admitted to this facility and end of December 2022 culture at that time did grow MRSA Enterococcus faecalis and Alcaligenes faecalis, patient did get a PICC line and is currently getting daptomycin Rocephin and Flagyl in the outpatient setting patient also was recently admitted at [facility] and the patient is status post cholecystectomy patient has not been brought to the hospital concerning for weakness and he did have multiple falls patient mention has been feeling weak unable to bear his weight and has been complaining of excruciating pain to the lower back area after the fall patient also have a chronic nonhealing wound to bilateral feet area and noticed having increasing swelling and some redness to the dorsal aspect of the right foot patient did have diabetic neuropathy denies significant pain to the lower extremity wound area did have a minimal drainage denies any foul-smelling patient denies any headache or URI symptoms no chest pain or shortness of breath occasional cough some nausea but no vomiting no abdominal pain and no diarrhea patient on presentation to the hospital was running a low-grade fever of 99.5 F patient was tachycardic but not hypotensive or hypoxic and no need for supplemental oxygen therapy hugo ent did have a normal white count of 9.0 kidney function was normal potassium was 3.3 liver exams are normal urine has been negative patient did have a chest x-ray slight pulmonary interstitial marking patient was started on vancomycin infectious disease was consulted for further management of antibiotic therapy Review of Systems Positive point and negatives has been mentioned in the HPI, complete review of systems was performed and all other systems are negative Past Medical History Past Medical History: Coronary Artery Disease (CAD), Cancer, Chest Pain / Angina, CVA/TIA, Diabetes Mellitus, GI Bleed, Hyperlipidemia, Hypertension, Myocardial Infarction (VT), Prostate Disorder, Renal Disease, Sleep Apnea/CPAP/BIPAP Additional Past Medical History / Comment(s): [place]ACHITO [place] , C-DIFF 2012., HX DIVERTICULOSIS, NEUROPATHY IN HANDS & FEET., LEFT KIDNEY CANCER WITH NEPHRECTOMY URETER & PART OF BLADDER & LYMPH NODES REMOVED., HAS CYST RIGHT KIDNEY, STAGE 3 KIDNEY DISEASE., HX OF SLEEP APNEA (SURGERY)., NON-HODGKINS LYMPHOMA -LAST PET SCAN NEGATIVE., STATES NO RESIDUAL EFFECT FROM HX CVA/TIA., 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 Last Myocardial Infarction Date:: 2012 History of Any Multi-Drug Resistant Organisms: None Reported Year Discovered:: 01/22/23 MDRO Source:: Toe Right FIrst Past Surgical History: Bowel Resection, Heart Catheterization, Heart Catheterization With Stent, Hernia Repair, Tonsillectomy Additional Past Surgical History / Comment(s): 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 , CIRCUMCISION cataracts., PIECE OF METAL REMOVED FROM ABD (WAR WOUND) - DEVELOPED SCAR TISSUE & PART OF LARGE INTESTINE REMOVED., ABD HERNIA REPAIR. SX FOR SLEEP APNEA. COLONOSCO PY/POLYPECTOMY., SUDHEER ILIAC VEIN STENTING.,, STATES TOTAL OF 4 CARDIAC STENTS, HEART CATH 12/2018. Past Anesthesia/Blood Transfusion Reactions: No Reported Reaction Date of Last Stent Placement:: 01/2014 Past Psychological History: No Psychological Hx Reported Smoking Status: Current every day smoker Past Alcohol Use History: Occasional Past Drug Use History: None Reported - Past Family History Mother Additional Family Medical History / Comment(s): from complications from broken hip. Father Family Medical History: Cancer Sister(s) Family Medical History: Diabetes Mellitus, Deep Vein Thrombosis (DVT) Medications and Allergies Home Medications Medication Instructions Recorded Confirmed Type Clopidogrel Bisulfate [Clopidogrel] 75 mg PO DAILY 02/04/14 03/20/23 History Fluticasone Nasal [place] [Flonase 1 spr EA NOSTRIL DAILY PRN 04/29/19 03/20/23 History Nasal [place]] Gabapentin 600 mg PO TID 11/04/22 03/20/23 History hydrOXYzine HCL [Atarax] 50 mg PO HS PRN 11/04/22 03/20/23 History Aspirin 81 mg PO DAILY #30 tab 11/11/22 03/20/23 Rx Atorvastatin [Lipitor] 40 mg PO DAILY #30 tab 11/11/22 03/20/23 Rx Nubeqa 300 Mg Tablet 600 mg PO BID #0 11/11/22 03/20/23 Rx carvediloL [Coreg] 3.125 mg PO BID-W/MEALS 30 Days 11/11/22 03/20/23 Rx #60 tab Calcium Carb-Vit D 500Mg-5Mcg 1 tab PO TID-W/MEALS 11/24/22 03/20/23 History [Oscal 500+D 5 Mcg (200 Iu)] Potassium Chloride [K-Tab ER] 20 meq PO BID #60 tab 11/25/22 03/20/23 Rx oxyCODONE-APAP 10-325MG [Percocet 1 tab PO Q6H PRN 01/21/23 03/20/23 History 10-325 mg] Magnesium Oxide [Mag-Ox] 400 mg PO DAILY tab 01/26/23 03/20/23 Rx DAPTOmycin [Cubicin] 340 mg IV DAILY 03/20/23 03/20/23 History Furosemide [Lasix] 20 mg PO DAILY PRN 03/20/23 03/20/23 History DAPTOmycin [Cubicin] 500 mg IVPB Q24HR #0 each 03/30/23 Rx Ertapenem [INVanz] 1 gm IVPB DAILY each 03/30/23 Rx Nystatin 100,000 Unit/gm Powd 1 applic TOPICAL BID 10 Days #100 03/30/23 Rx [Mycostatin Powder] each glipiZIDE [Glucotrol] 10 mg PO AC-BID 30 Days #60 tab 03/30/23 Rx lisinopriL [Zestril] 2.5 mg PO DAILY 30 Days #30 tab 03/30/23 Rx Allergies Allergy/AdvReac Type Severity Reaction Status Date / Time Penicillins Allergy Unknown Verified 03/20/23 08:07 Childhood Tetanus Vaccines and Toxoid Allergy Unknown Verified 03/20/23 08:07 Childhood metformin AdvReac Nausea & Verified 03/20/23 08:07 Vomiting Physical Exam Vitals: Vital Signs Temp Pulse Resp BP Pulse Ox 03/20/23 09:30 61 18 102/61 99 03/20/23 07:55 64 18 120/71 99 03/20/23 06:00 71 18 111/58 98 03/20/23 05:00 73 18 115/67 96 03/20/23 02:00 75 18 103/58 98 03/20/23 01:00 91 18 127/73 98 03/20/23 00:00 90 18 112/72 99 03/19/23 23:48 99.5 F 96 18 118/84 99 Intake and Output 03/19/23 03/20/23 03/20/23 22:59 06:59 14:59 Intake Total 13.056 Balance 13.056 Intake: Intake, IV Titration 13.056 Amount Insulin Regular 100 unit 13.056 In Sodium Chloride 0.9% 100 ml @ 0.1 UNITS/KG/HR 8.246 mls/hr IV .[id number] [facility] Rx#:[id number] Other: Weight 81.647 kg GENERAL DESCRIPTION: Elderly male lying in bed, no distress. No tachypnea or accessory muscle of respiration use. HEENT: Shows Pallor , no scleral icterus. Oral mucous membrane is dry. No pharyngeal erythema or thrush NECK: Trachea central, no thyromegaly. LUNGS: Unlabored breathing. Clear to auscultation anteriorly. No wheeze or crackle. HEART: S1, S2, regular rate and rhythm. No loud murmur ABDOMEN: Soft, no tenderness , guarding or rigidity, no organomegaly EXTREMITIES: Right foot plantar wound which is probing down to the bone he did have a some swelling redness and warmth to the right foot dorsum aspect, patient also have a wound to the left big toe tip with some slough tissue no surro unding redness or drainage SKIN: No rash, no masses palpable. NEUROLOGICAL: The patient is awake, alert, oriented x3, mood and affect normal. Results CBC & Chem 7: 03/30/23 07:31 03/30/23 07:31 Labs: Abnormal Lab Results - Last 24 Hours (Table) 03/19/23 03/20/23 03/20/23 Range/Units 23:50 00:20 00:20 RBC 3.45 L (4.30-5.90) m/uL Hgb 10.1 L (13.0-17.5) gm/dL Hct 31.5 L (39.0-53.0) % Neutrophils # 8.2 H (1.3-7.7) k/uL Lymphocytes # 0.4 L (1.0-4.8) k/uL Sodium 134 L (137-145) mmol/L Potassium 3.3 L (3.5-5.1) mmol/L Chloride 93 L (98-107) mmol/L Glucose 696 H* (74-99) mg/dL POC Glucose (mg/dL) >600 H (70-110) mg/dL Alkaline Phosphatase 154 H (38-126) U/L Troponin I (0.000-0.034) ng/mL Urine Glucose (UA) (Negative) Urine Blood (Negative) Urine Mucus (None) /hpf 03/20/23 03/20/23 03/20/23 Range/Units 00:20 02:49 03:15 RBC (4.30-5.90) m/uL Hgb (13.0-17.5) gm/dL Hct (39.0-53.0) % Neutrophils # (1.3-7.7) k/uL Lymphocytes # (1.0-4.8) k/uL Sodium (137-145) mmol/L Potassium (3.5-5.1) mmol/L Chloride (98-107) mmol/L Glucose (74-99) mg/dL POC Glucose (mg/dL) >600 H (70-110) mg/dL Alkaline Phosphatase (38-126) U/L Troponin I 0.223 H* (0.000-0.034) ng/mL Urine Glucose (UA) 4+ H (Negative) Urine Blood Small H (Negative) Urine Mucus Rare H (None) /hpf 03/20/23 03/20/23 03/20/23 Range/Units 04:48 06:55 07:57 RBC (4.30-5.90) m/uL Hgb (13.0-17.5) gm/dL Hct (39.0-53.0) % Neutrophils # (1.3-7.7) k/uL Lymphocytes # (1.0-4.8) k/uL Sodium (137-145) mmol/L Potassium (3.5-5.1) mmol/L Chloride (98-107) mmol/L Glucose (74-99) mg/dL POC Glucose (mg/dL) 598 H >600 H (70-110) mg/dL Alkaline Phosphatase (38-126) U/L Troponin I (0.000-0.034) ng/mL Urine Glucose (UA) 4+ H (Negative) Urine Blood Small H (Negative) Urine Mucus (None) /hpf 03/20/23 03/20/23 Range/Units 09:24 11:00 RBC (4.30-5.90) m/uL Hgb (13.0-17.5) gm/dL Hct (39.0-53.0) % Neutrophils # (1.3-7.7) k/uL Lymphocytes # (1.0-4.8) k/uL Sodium (137-145) mmol/L Potassium (3.5-5.1) mmol/L Chloride (98-107) mmol/L Glucose (74-99) mg/dL POC Glucose (mg/dL) >600 H 321 H (70-110) mg/dL Alkaline Phosphatase (38-126) U/L Troponin I (0.000-0.034) ng/mL Urine Glucose (UA) (Negative) Urine Blood (Negative) Urine Mucus (None) /hpf Assessment and Plan (1) Diabetic foot ulcer Status: Acute Priority: High Code(s): E11.621 - TYPE 2 DIABETES MELLITUS WITH FOOT ULCER; L97.509 - NON-PRESSURE CHRONIC ULCER OTH PRT UNSP FOOT W UNSP SEVERITY SNOMED Code(s): 171164009 (2) Foot osteomyelitis, right Status: Acute Code(s): M86.9 - OSTEOMYELITIS, UNSPECIFIED SNOMED Code(s): 9593060534069248 Plan: 1patient presented to hospital with weakness multiple falls has been co mplaining of excruciating pain to the lower back area after a fall patient also have a nonhealing wound on the plantar aspect of the right foot as well as the left big toe with recent culture positive for MRSA Enterococcus faecalis and Alcaligenes faecalis for the patient was receiving antibiotic in the outpatient setting, patient did have persistent nonhealing of the wound which is probing down to the bone on the right foot plantar aspect concerning for acute on chronic osteomyelitis 2-local cultures have been obtained from both wounds and will guide further antibiotic therapy 3-we will discontinue vancomycin 4-start the patient on cefepime daptomycin and Flagyl 5-local wound care with a dry Aquacel dressing change every 48 hour 6-we will check a CT of the lumbar spine because of excruciating pain to make sure no evidence of any fracture or other pathology We will follow on clinical condition and cultures to further adjust medication if needed Thank you for this consultation we will follow the patient along with you Dictation was produced using [employer] dictation software. please excuse any grammatical, word or spelling errors. Time with Patient: Greater than 30
[2023-03-21 01:00] LABS: Glucose,Whole Blood 65 mg/dL (70-110)
[2023-03-21 03:16] LABS: Glucose,Whole Blood 90 mg/dL (70-110)
[2023-03-21 06:01] LABS: Glucose,Whole Blood 160 mg/dL (70-110)
[2023-03-21] MEDS: carvediloL 3.125 MG TAB PO SCH ×2 (06:33→16:41)
[2023-03-21] MEDS: INSULIN ASPART (NovoLOG) 100 UNIT/ML VIAL SQ SCH ×4 (06:34→21:06)
[2023-03-21] MEDS: glipiZIDE 10 MG TAB PO SCH ×2 (06:34→16:41)
[2023-03-21] MEDS ORDERED: PANTOPRAZOLE 40 MG TABLET PO SCH (07:30)
[2023-03-21] MEDS: HEPARIN SODIUM,PORCINE 5,000 UNIT/ML 1 ML VIAL SQ SCH ×2 (09:19→21:05)
[2023-03-21] MEDS: POTASSIUM CHLORIDE ER 20 MEQ TAB.ER PO SCH ×2 (09:20→21:06)
[2023-03-21] MEDS: GABAPENTIN 300 MG CAP PO SCH ×3 (09:20→21:05)
[2023-03-21] MEDS: ASPIRIN 81 MG PO SCH (09:20)
[2023-03-21] MEDS: FAMOTIDINE 20 MG TAB PO SCH ×2 (09:20→21:06)
[2023-03-21] MEDS: CLOPIDOGREL 75 MG TAB PO SCH (09:20)
[2023-03-21] MEDS: MORPHINE SULFATE ER 30 MG TABLET PO SCH ×2 (09:20→21:05)
[2023-03-21] MEDS: metroNIDAZOLE 500 MG TAB PO SCH ×3 (09:20→21:06)
[2023-03-21] MEDS: CEFEPIME 2 GM in SODIUM CHLORIDE 0.9% 100 ML IVPB SCH ×5 (09:21→23:46)
[2023-03-21] MEDS: DAPTOmycin 500 MG in SODIUM CHLORIDE 0.9% 50 ML IVPB SCH (09:22)
[2023-03-21] MEDS: NUBEQA PO SCH ×2 (09:23→21:07)
[2023-03-21] MEDS: MAGNESIUM OXIDE 400 MG TAB PO SCH (09:23)
[2023-03-21 09:35] LABS: Basophils % (A) 0 %; Eosinophils # (A) 0.1 k/uL (0-0.7); Eosinophils % (A) 2 %; HCT 26.7 % (39.0-53.0); Hypochromasia Moderate; Lymphocytes # (A) 0.4 k/uL (1.0-4.8); Lymphocytes % (A) 6 %; MCH 28.3 pg (25.0-35.0); MCHC 32.4 g/dL (31.0-37.0); MCV 87.4 fL (80.0-100.0); Monocytes # (A) 0.2 k/uL (0-1.0); Monocytes % (A) 3 %; Neutrophils # (A) 6.4 k/uL (1.3-7.7); Neutrophils % (A) 89 %; Platelet Count 218 k/uL (150-450); Poikilocytosis Slight; RBC 3.05 m/uL (4.30-5.90); WBC 7.2 k/uL (3.8-10.6)
[2023-03-21 09:36] LABS: HGB 8.6 gm/dL (13.0-17.5)
[2023-03-21] MEDS ORDERED: Potassium Replacement Protocol 1 EACH MISC MISCELLANE PRN (09:57)
--- NOTE | 2023-03-21 10:13 | P.PN ---
Subjective Progress Note Date: 03/21/23 Principal diagnosis: Abnormal cardiac enzymes The patient is a 67-year-old gentleman who is known to our service from before with a past medical history significant for coronary artery disease and status post CABG with unknown details as well as hypertension and dyslipidemia and diabetes and history of smoking and history of iliac vein stenting. Also the patient does have history of metastatic prostate cancer Beside that he does have history of chronic wound involving the left foot. The patient underwent recently gallbladder surgery. The surgery went uneventfully. Since the surgery about 2 weeks ago he has not been feeding well. He has been experiencing progressive weakness and decrease in the appetite as well. There was a subtle changes on his diabetic medication around the surgery. He stated that earlier today he was in the shower and he fell with no loss of consciousness. No dizziness or lightheadedness and no feeling of heart racing or fluttering and no symptoms of chest pain or chest discomfort or shortness of breath. He presented to the emergency department for further evaluation. Hemodynamically he was stable beside mild sinus tachycardia. The pressure has been stable. He underwent a workup including a chest x-ray came in to be unremarkable and EKG showing sinus mechanism with PVCs and troponin came in to be slightly abnormal. Beside that his glucose was found to be elevated at 600. No chest pain or chest discomfort and no shortness of breath but he does have overall extremely poor functional capacity with the wound of the left foot which has been managed by Dr. Knapp regularly. Currently he is on aspirin and he is on Plavix and he is on statin and he is on beta myriam we'll continue that. We'll obtain an echocardiogram for more risk stratification. The last echo showed an ejection fraction within normal limits was no significant valvular abnormalities and mild pulmonary hypertension. I with consider medical treatment for low mildly abnormal troponin at this point awaiting for the results of the echo for more risk stratification. The examination is remarkable for distant heart sounds with regular rhythm and diminished breathing sounds bilaterally and left foot nonhealing wound involving the bottom of the foot. 03/21/2020 the next and the patient was seen and evaluated this morning. He is asymptomatic and no chest pain or chest discomfort and no shortness of breath at this point. He is stable from the cardiac standpoint overview. The echo still pending. Dr. Knapp is on the case regarding the wound in the left foot. From a cardiac arrest was standpoint of view, I would continue the current medical regimen and follow-up with the patient. Follow-up with the echocardiogram. The examination is remarkable for distant heart sounds with regular rhythm and diminished breathing sounds bilaterally and left foot nonhealing wound Assessment Generalized weakness and fatigue Uncontrolled diabetes Evidence of myocardial injury was no evidence of ischemia by EKG or clinically Coronary artery disease as described above Multiple comorbid conditions Metastatic prostate cancer Plan Continue the current medical regimen Continue dual antiplatelet therapy along with a statin and beta myriam Obtain an echo for more risk stratification Follow-up with the patient Objective - Vital Signs Vital signs: Vital Signs Temp 98.5 F 03/21/23 09:15 Pulse 70 03/21/23 09:15 Resp 17 03/21/23 09:15 BP 118/61 03/21/23 09:15 Pulse Ox 96 03/21/23 09:15 FiO2 Intake & Output 03/20/23 03/21/23 03/21/23 18:59 06:59 18:59 Intake Total 88.245 Output Total 300 Balance 88.245 -300 Weight 81.647 kg Intake: Intake, IV Titration 88.245 Amount Insulin Regular 100 unit 88.245 In Sodium Chloride 0.9% 100 ml @ 0.1 UNITS/KG/HR 8.246 mls/hr IV .[id number] [facility] Rx#:[id number] Output: Urine 300 Other: Voiding Method External Catheter External Catheter - Labs CBC & Chem 7: 03/21/23 08:28 03/20/23 00:20 Labs: Abnormal Lab Results - Last 24 Hours (Table) 03/20/23 03/20/23 03/20/23 Range/Units 11:00 12:05 13:06 RBC (4.30-5.90) m/uL Hgb (13.0-17.5) gm/dL Hct (39.0-53.0) % Lymphocytes # (1.0-4.8) k/uL POC Glucose (mg/dL) 321 H 280 H 191 H (70-110) mg/dL Troponin I (0.000-0.034) ng/mL 03/20/23 03/20/23 03/20/23 Range/Units 13:28 14:05 16:01 RBC (4.30-5.90) m/uL Hgb (13.0-17.5) gm/dL Hct (39.0-53.0) % Lymphocytes # (1.0-4.8) k/uL POC Glucose (mg/dL) 180 H 129 H (70-110) mg/dL Troponin I 0.841 H* (0.000-0.034) ng/mL 03/20/23 03/20/23 03/21/23 Range/Units 17:58 21:43 00:59 RBC (4.30-5.90) m/uL Hgb (13.0-17.5) gm/dL Hct (39.0-53.0) % Lymphocytes # (1.0-4.8) k/uL POC Glucose (mg/dL) 298 H 136 H 65 L (70-110) mg/dL Troponin I (0.000-0.034) ng/mL 03/21/23 03/21/23 Range/Units 06:00 08:28 RBC 3.05 L (4.30-5.90) m/uL Hgb 8.6 L D (13.0-17.5) gm/dL Hct 26.7 L (39.0-53.0) % Lymphocytes # 0.4 L (1.0-4.8) k/uL POC Glucose (mg/dL) 160 H (70-110) mg/dL Troponin I (0.000-0.034) ng/mL Microbiology - Last 24 Hours (Table) 03/20/23 12:47 Gram Stain - Preliminary Foot - Right Wound Culture - Preliminary Martine albicans 03/20/23 12:47 Gram Stain - Preliminary Toe - Left First Wound Culture - Preliminary Martine albicans
--- NOTE | 2023-03-21 10:17 | P.GSCN ---
History of Present Illness History of present illness: 67-year-old gentleman well-known to me from the past patient has been coming to the wound clinic patient has a history of Charcot foot right lower extremity involving the plantar aspect the foot we've been treating with local wound care patient was sent to using this for second opinion in [place] in the past and his been followed in the wound clinic for local wound care. Patient has history of fall at home patient also has a sore low sodium 137 potassium 3.3 patient was seen by cardiology also patient had history of prostate surgery in the past by Dr. Tompkins Medical history history of diabetes hypertension coronary artery disease history of prostate surgery for see of the prostate in the past he's been following with Dr. Tompkins Patient also has a history of hypertension and his coronary artery disease Chest examination chest is clear good and both lungs first and second sound present abdomen soft nontender patient complained of some back pain CT spine shows no evidence of fracture Vascular femorals are 1+ bilateral patient has a Charcot foot and patient has a wound on the plantar aspect we've been treating with local wound care using X a silver patient is an IV antibiotic under care of infectious disease. Follow with you change her dressing every 48 hours we will use Aquacel silver Past Medical History Past Medical History: Coronary Artery Disease (CAD), Cancer, Chest Pain / Angina, CVA/TIA, Diabetes Mellitus, GI Bleed, Hyperlipidemia, Hypertension, Myocardial Infarction ([place]), Prostate Disorder, Renal Disease, Sleep Apnea/CPAP/BIPAP Additional Past Medical History / Comment(s): CATRACHITO 2013 , C-DIFF 2012., HX DIVERTICULOSIS, NEUROPATHY IN HANDS & FEET., LEFT KIDNEY CANCER WITH NEPHRECTOMY URETER & PART OF BLADDER & LYMPH NODES REMOVED., HAS CYST RIGHT KIDNEY, STAGE 3 KIDNEY DISEASE., HX OF SLEEP APNEA (SURGERY)., NON-HODGKINS LYMPHOMA -LAST PET SCAN NEGATIVE., STATES NO RESIDUAL EFFECT FROM HX CVA/TIA., 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 Last Myocardial Infarction Date:: 2012 History of Any Multi-Drug Resistant Organisms: None Reported Year Discovered:: 01/22/23 MDRO Source:: Toe Right FIrst Past Surgical History: Bowel Resection, Heart Catheterization, Heart Catheterization With Stent, Hernia Repair, Tonsillectomy Additional Past Surgical History / Comment(s): 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 , CIRCUMCISION cataracts., PIECE OF METAL REMOVED FROM ABD (WAR WOUND) - DEVELOPED SCAR TISSUE & PART OF LARGE INTESTINE REMOVED., ABD HERNIA REPAIR. SX FOR SLEEP APNEA. COLONOSCOPY/POLYPECTOMY., SUDHEER ILIAC VEIN STENTING.,, STATES TOTAL OF 4 CARDIAC STENTS, HEART CATH 12/2018. Past Anesthesia/Blood Transfusion Reactions: No Reported Reaction Date of Last Stent Placement:: 01/2014 Past Psychological History: No Psychological Hx Reported Additional Psychological History / Comment(s): . Smoking Status: Current every day smoker Past Alcohol Use History: Occasional Additional Past Alcohol Use History / Comment(s): QUIT SMOKING (MAR 2019). and restarted in 2019, STARTED SMOKING AT AGE 12. Past Drug Use History: None Reported - Past Family History Mother Additional Family Medical History / Comment(s): from complications from broken hip. Father Family Medical History: Cancer Sister(s) Family Medical History: Diabetes Mellitus, Deep Vein Thrombosis (DVT) Medications and Allergies Home Medications Medication Instructions Recorded Confirmed Type Clopidogrel Bisulfate [Clopidogrel] 75 mg PO DAILY 02/04/14 03/20/23 History Fluticasone Nasal [place] [Flonase 1 spr EA NOSTRIL DAILY PRN 04/29/19 03/20/23 History Nasal [place]] Gabapentin 600 mg PO TID 11/04/22 03/20/23 History hydrOXYzine HCL [Atarax] 50 mg PO HS PRN 11/04/22 03/20/23 History Aspirin 81 mg PO DAILY #30 tab 11/11/22 03/20/23 Rx Atorvastatin [Lipitor] 40 mg PO DAILY #30 tab 11/11/22 03/20/23 Rx Nubeqa 300 Mg Tablet 600 mg PO BID #0 11/11/22 03/20/23 Rx carvediloL [Coreg] 3.125 mg PO BID-W/MEALS 30 Days 11/11/22 03/20/23 Rx #60 tab Calcium Carb-Vit D 500Mg-5Mcg 1 tab PO TID-W/MEALS 11/24/22 03/20/23 History [Oscal 500+D 5 Mcg (200 Iu)] Potassium Chloride [K-Tab ER] 20 meq PO BID #60 tab 11/25/22 03/20/23 Rx Morphine Sulfate ER [Ms Contin] 30 mg PO BID 01/21/23 03/20/23 History oxyCODONE-APAP 10-325MG [Percocet 1 tab PO Q6H PRN 01/21/23 03/20/23 History 10-325 mg] Magnesium Oxide [Mag-Ox] 400 mg PO DAILY tab 01/26/23 03/20/23 Rx DAPTOmycin [Cubicin] 340 mg IV DAILY 03/20/23 03/20/23 History Furosemide [Lasix] 20 mg PO DAILY PRN 03/20/23 03/20/23 History cefTRIAXone [Rocephin] 2 gm IV DAILY 03/20/23 03/20/23 History Allergies Allergy/AdvReac Type Severity Reaction Status Date / Time Penicillins Allergy Unknown Verified 03/20/23 08:07 Childhood Tetanus Vaccines and Toxoid Allergy Unknown Verified 03/20/23 08:07 Childhood metformin AdvReac Nausea & Verified 03/20/23 08:07 Vomiting Surgical - Exam Vital Signs Temp Pulse Resp BP Pulse Ox 99.5 F 96 18 118/84 99 03/19/23 23:48 03/19/23 23:48 03/19/23 23:48 03/19/23 23:48 03/19/23 23:48 Results - Labs 03/21/23 08:28 03/20/23 00:20 Abnormal Lab Results - Last 24 Hours (Table) 03/20/23 03/20/23 03/20/23 Range/Units 11:00 12:05 13:06 RBC (4.30-5.90) m/uL Hgb (13.0-17.5) gm/dL Hct (39.0-53.0) % Lymphocytes # (1.0-4.8) k/uL POC Glucose (mg/dL) 321 H 280 H 191 H (70-110) mg/dL Troponin I (0.000-0.034) ng/mL 03/20/23 03/20/23 03/20/23 Range/Units 13:28 14:05 16:01 RBC (4.30-5.90) m/uL Hgb (13.0-17.5) gm/dL Hct (39.0-53.0) % Lymphocytes # (1.0-4.8) k/uL POC Glucose (mg/dL) 180 H 129 H (70-110) mg/dL Troponin I 0.841 H* (0.000-0.034) ng/mL 03/20/23 03/20/23 03/21/23 Range/Units 17:58 21:43 00:59 RBC (4.30-5.90) m/uL Hgb (13.0-17.5) gm/dL Hct (39.0-53.0) % Lymphocytes # (1.0-4.8) k/uL POC Glucose (mg/dL) 298 H 136 H 65 L (70-110) mg/dL Troponin I (0.000-0.034) ng/mL 03/21/23 03/21/23 Range/Units 06:00 08:28 RBC 3.05 L (4.30-5.90) m/uL Hgb 8.6 L D (13.0-17.5) gm/dL Hct 26.7 L (39.0-53.0) % Lymphocytes # 0.4 L (1.0-4.8) k/uL POC Glucose (mg/dL) 160 H (70-110) mg/dL Troponin I (0.000-0.034) ng/mL Microbiology - Last 24 Hours (Table) 03/20/23 12:47 Gram Stain - Preliminary Foot - Right Wound Culture - Preliminary Martine albicans 03/20/23 12:47 Gram Stain - Preliminary Toe - Left First Wound Culture - Preliminary Martine albicans
--- NOTE | 2023-03-21 11:22 | P.PN ---
Subjective Progress Note Date: 03/21/23 Aba dunn is 67 year old male patient who presented to the ER with concerns of generalized weakness. Patient had a recent lap sandra at [facility]. Patient reports that he has not been on his diabetic medication following lap sandra when EMS arrived they found elevated blood sugars greater than 600. Patient has been maintained on IV antibiotic vancomycin for right foot diabetic ulcers. Patient denies fevers at home. Additional medical history includes CAD, chest pain, CVA, diabetes mellitus, GI bleed, hyperlipidemia, hypertension, CT, prostate disorder, renal disease, sleep apnea, non-Hodgkin's lymphoma, heart cath with stent. Chest x-ray completed showing slightly prominent interstitial markings. Hip x-ray completed showing no acute fracture or dislocation. White blood cell 9.0 initial blood sugars greater than 600 patient was started on insulin drip. UA negative for ketones. Patient was resumed back on vancomycin. Troponin elevated 0.2-3 will order serial troponins and cardiac monitoring cardiology service is consulted. Vascular surgery and infectious disease service is consulted blood culture ordered. Repeat labs ordered. At this time patient is resting comfortably bed patient reports improvement with symptoms. Patient denies chest pain or shortness of breath. Patient denies nausea vomiting or diarrhea. Patient denies any urinary burning or frequency On 03/21/2023 patient was seen and examined on the medical floor he is alert and oriented 3, he is complaining of severe back pain that he rates at 10 out of 10, he states that he fell yesterday and hit his back, x-ray of the lumbar spine was done yesterday in the emergency room, and did not reveal any fracture, however it revealed diffuse sclerotic bone lesions, suggestive of metastatic disease, at this time will check PSA and consult oncology in that regard. Patient is also having significant drop in hemoglobin since yesterday, will check stools for occult blood, will check iron panel vitamin B12 and folate level, will follow closely Objective - Vital Signs Vital signs: Vital Signs Temp 98.1 F 03/21/23 03:55 Pulse 73 03/21/23 03:55 Resp 16 03/21/23 03:55 BP 130/78 03/21/23 03:55 Pulse Ox 95 03/21/23 03:55 FiO2 Intake & Output 03/20/23 03/21/23 03/21/23 18:59 06:59 18:59 Intake Total 88.245 Output Total 300 Balance 88.245 -300 Weight 81.647 kg Intake: Intake, IV Titration 88.245 Amount Insulin Regular 100 unit 88.245 In Sodium Chloride 0.9% 100 ml @ 0.1 UNITS/KG/HR 8.246 mls/hr IV .[id number] [facility] Rx#:[id number] Output: Urine 300 Other: Voiding Method External Catheter - Exam In general patient is alert and oriented x 3 in no distress HEENT head normocephalic and atraumatic Neck is supple no JVD no goiter no lymphadenopathy no carotid bruit Chest examination is clear to auscultation no crackles no wheezing Cardiac exam reveals regular heart sounds S1 and S2 no gallops no murmurs Abdomen is soft nontender no organomegaly with normal bowel sounds Extremity exam reveals minimal swelling, with bilateral wounds involving the feet and the toes Neurological examination reveals no gross focal deficits - Labs CBC & Chem 7: 03/21/23 08:28 03/20/23 00:20 Labs: Abnormal Lab Results - Last 24 Hours (Table) 03/20/23 03/20/23 03/20/23 Range/Units 11:00 12:05 13:06 RBC (4.30-5.90) m/uL Hgb (13.0-17.5) gm/dL Hct (39.0-53.0) % Lymphocytes # (1.0-4.8) k/uL POC Glucose (mg/dL) 321 H 280 H 191 H (70-110) mg/dL Troponin I (0.000-0.034) ng/mL 03/20/23 03/20/23 03/20/23 Range/Units 13:28 14:05 16:01 RBC (4.30-5.90) m/uL Hgb (13.0-17.5) gm/dL Hct (39.0-53.0) % Lymphocytes # (1.0-4.8) k/uL POC Glucose (mg/dL) 180 H 129 H (70-110) mg/dL Troponin I 0.841 H* (0.000-0.034) ng/mL 03/20/23 03/20/23 03/21/23 Range/Units 17:58 21:43 00:59 RBC (4.30-5.90) m/uL Hgb (13.0-17.5) gm/dL Hct (39.0-53.0) % Lymphocytes # (1.0-4.8) k/uL POC Glucose (mg/dL) 298 H 136 H 65 L (70-110) mg/dL Troponin I (0.000-0.034) ng/mL 03/21/23 03/21/23 Range/Units 06:00 08:28 RBC 3.05 L (4.30-5.90) m/uL Hgb 8.6 L D (13.0-17.5) gm/dL Hct 26.7 L (39.0-53.0) % Lymphocytes # 0.4 L (1.0-4.8) k/uL POC Glucose (mg/dL) 160 H (70-110) mg/dL Troponin I (0.000-0.034) ng/mL Microbiology - Last 24 Hours (Table) 03/20/23 12:47 Gram Stain - Preliminary Foot - Right Wound Culture - Preliminary Martine albicans 03/20/23 12:47 Gram Stain - Preliminary Toe - Left First Wound Culture - Preliminary Martine albicans Assessment and Plan Assessment: 1. Uncontrolled diabetes mellitus with hyperglycemia. 2. Recent laparoscopic cholecystectomy Analy Jeffery 3. Diabetic foot ulcers maintained on IV antibiotics 4. Generalized weakness 5. Elevated troponin 6. underlying history of mle-vojrwjb-upvwldfuo diabetes mellitus 7. Underlying history of essential hypertension 8. History of neuropathy 9. History of hyperlipidemia 10. History of peripheral vascular disease 11. History of coronary artery disease with history of myocardial infarction 12. History of GI bleeding 13. History of CVA 14. 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 GI prophylaxis Protonix Patient started on insulin drip Cardiology service is consulted for elevated troponin, repeat troponin ordered Infectious disease and vascular surgery consulted Patient restarted back on a vancomycin Blood cultures ordered
[2023-03-21 12:01] LABS: ALT 32 U/L (4-49); AST 132 U/L (17-59); African American GFR (CKD) >90 (>60 ml/min/1.73 sqM); Albumin 2.5 g/dL (3.5-5.0); Alkaline Phosphatase 191 U/L (38-126); Anion Gap 7 mmol/L; Blood Urea Nitrogen 11 mg/dL (9-20); Calcium 8.2 mg/dL (8.4-10.2); Carbon Dioxide 26 mmol/L (22-30); Chloride 102 mmol/L (98-107); Creatine Kinase 867 U/L (55-170); Glucose 156 mg/dL (74-99); Non-African American GFR(CKD) 81 (>60 ml/min/1.73 sqM); Potassium 3.4 mmol/L (3.5-5.1); Sodium 135 mmol/L (137-145); Total Bilirubin 0.5 mg/dL (0.2-1.3); Total Protein 5.6 g/dL (6.3-8.2)
[2023-03-21] MEDS: HYDROmorphone 0.5 MG/0.5 ML SYRINGE IVP PRN (12:01)
[2023-03-21 12:12] LABS: C Reactive Protein 20.5 mg/dL (<1.0)
[2023-03-21 12:18] LABS: Glucose,Whole Blood 213 mg/dL (70-110)
[2023-03-21 12:56] LABS: Erythrocyte Sedimentation Rate 88 mm/Hr (0-20)
[2023-03-21] MEDS: oxyCODONE-APAP 10-325MG 1 EACH TAB PO PRN (13:09)
--- NOTE | 2023-03-21 14:47 | P.CONS ---
History of Present Illness - Reason for Consult Consult date: 03/21/23 Metastatic prostate cancer, weakness, falls, pain - History of Present Illness The pt is a 67-year-old male with a significant history of prostate cancer and multiple comorbidities. He is a patient of Dr. Moran. The patient came in to the hospital, complaining of persistent weakness with some progression, multiple falls, and increased pain. Prior notes his admission patient increased pain in the back, but the patient states that the most prominent new areas and both groins, as well as bilateral ribs and sternum. He was therefore admitted for further management and consult placed. His oncology history is as follows: He was diagnosed with prostate cancer in August 2019, prostate biopies revealing feliciano 8(4+4) in 5 cores. He underwent EBRT and LHRH agonist treatment for 18 months. PSA was down to 0.2 on 05/19/2021. On 02/11/2022, PSA was up to 33.3, and subsequently went back on LHRH agnoist and started xtandi. His CT scan of chest/abdomen/plevis on 02/24/2022 revealed retroperitoneal nodes, bone scan on 04/08/2022, revealed evidence of osseous mets involving sternum, ribs and pelvic bones. He had palliative radiation therapy to sternum in June/2022. Due to side effects of Xtandi, patient was switched to Nubeqa. Restarted that in late 11/16, due to some delay in receiving the medication. He continues with lupron injections with Dr. Camara. He was also started on Xgeva on 10/20/22. He reports good compliance with the Nubeqa Workup admission included EKG, x-rays of the pelvis, and lumbar spine CT. This did not show any acute fracture or dislocation. Known osseous metastatic disease was again noted. There was no mention of this being progressive compared to prior imaging. His CT of the abdomen pelvis 2 weeks ago, had noted that the osseous lesions appear to be overall stable. His last PSA in this EMR was stable at 1.2 -1.3, down from 30+ in 02/15. The patient has problems with Charcot joints, and is battling nonhealing wounds of bilateral feet. He is on IV antibiotics as an outpatient. Review of Systems Constitutional: Reports weakness Eyes: denies blurred vision, denies pain Ears: deny: decreased hearing, ear discharge, earache, tinnitus Ears, nose, mouth and throat: Denies headache, Denies sore throat Cardiovascular: Reports decreased exercise tolerance Respiratory: Denies cough Gastrointestinal: Reports diarrhea Genitourinary: Reports as per HPI, Reports urinary frequency Musculoskeletal: Reports as per HPI, Reports frequent falls, Reports low back pain, Reports muscle weakness Integumentary: Reports as per HPI, Reports wounds Neurological: Reports as per HPI, Reports paresthesias, Reports weakness Psychiatric: Denies anxiety, Denies depression Endocrine: Denies fatigue, Denies weight change Hematologic/Lymphatic: Reports as per HPI Past Medical History Past Medical History: Coronary Artery Disease (CAD), Cancer, Chest Pain / Angina, CVA/TIA, Diabetes Mellitus, GI Bleed, Hyperlipidemia, Hypertension, Myocardial Infarction (ME), Prostate Disorder, Renal Disease, Sleep Apnea/CPAP/BIPAP Additional Past Medical History / Comment(s): SHINGLES 2013 , C-DIFF 2012., HX DIVERTICULOSIS, NEUROPATHY IN HANDS & FEET., LEFT KIDNEY CANCER WITH NEPHRECTOMY URETER & PART OF BLADDER & LYMPH NODES REMOVED., HAS CYST RIGHT KIDNEY, STAGE 3 KIDNEY DISEASE., HX OF SLEEP APNEA (SURGERY)., NON-HODGKINS LYMPHOMA -LAST PET SCAN NEGATIVE., STATES NO RESIDUAL EFFECT FROM HX CVA/TIA., 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 Last Myocardial Infarction Date:: 2012 History of Any Multi-Drug Resistant Organisms: None Reported Year Discovered:: 01/22/23 MDRO Source:: Toe Right FIrst Past Surgical History: Bowel Resection, Heart Catheterization, Heart Catheterization With Stent, Hernia Repair, Tonsillectomy Additional Past Surgical History / Comment(s): 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 , CIRCUMCISION cataracts., PIECE OF METAL REMOVED FROM ABD (WAR WOUND) - DEVELOPED SCAR TISSUE & PART OF LARGE INTESTINE REMOVED., ABD HERNIA REPAIR. SX FOR SLEEP APNEA. COLONOSCOPY/POLYPECTOMY., SUDHEER ILIAC VEIN STENTING.,, STATES TOTAL OF 4 CARDIAC STENTS, HEART CATH 12/2018. Past Anesthesia/Blood Transfusion Reactions: No Reported Reaction Date of Last Stent Placement:: 01/2014 Past Psychological History: No Psychological Hx Reported Additional Psychological History / Comment(s): . Smoking Status: Current every day smoker Past Alcohol Use History: Occasional Additional Past Alcohol Use History / Comment(s): QUIT SMOKING (MAR 2019). and restarted in 2019, STARTED SMOKING AT AGE 12. Past Drug Use History: None Reported - Past Family History Mother Additional Family Medical History / Comment(s): from complications from broken hip. Father Family Medical History: Cancer Sister(s) Family Medical History: Diabetes Mellitus, Deep Vein Thrombosis (DVT) Medications and Allergies Home Medications Medication Instructions Recorded Confirmed Type Clopidogrel Bisulfate [Clopidogrel] 75 mg PO DAILY 02/04/14 03/20/23 History Fluticasone Nasal [place] [Flonase 1 spr EA NOSTRIL DAILY PRN 04/29/19 03/20/23 History Nasal [place]] Gabapentin 600 mg PO TID 11/04/22 03/20/23 History hydrOXYzine HCL [Atarax] 50 mg PO HS PRN 11/04/22 03/20/23 History Aspirin 81 mg PO DAILY #30 tab 11/11/22 03/20/23 Rx Atorvastatin [Lipitor] 40 mg PO DAILY #30 tab 11/11/22 03/20/23 Rx Nubeqa 300 Mg Tablet 600 mg PO BID #0 11/11/22 03/20/23 Rx carvediloL [Coreg] 3.125 mg PO BID-W/MEALS 30 Days 11/11/22 03/20/23 Rx #60 tab Calcium Carb-Vit D 500Mg-5Mcg 1 tab PO TID-W/MEALS 11/24/22 03/20/23 History [Oscal 500+D 5 Mcg (200 Iu)] Potassium Chloride [K-Tab ER] 20 meq PO BID #60 tab 11/25/22 03/20/23 Rx Morphine Sulfate ER [Ms Contin] 30 mg PO BID 01/21/23 03/20/23 History oxyCODONE-APAP 10-325MG [Percocet 1 tab PO Q6H PRN 01/21/23 03/20/23 History 10-325 mg] Magnesium Oxide [Mag-Ox] 400 mg PO DAILY tab 01/26/23 03/20/23 Rx DAPTOmycin [Cubicin] 340 mg IV DAILY 03/20/23 03/20/23 History Furosemide [Lasix] 20 mg PO DAILY PRN 03/20/23 03/20/23 History cefTRIAXone [Rocephin] 2 gm IV DAILY 03/20/23 03/20/23 History Allergies Allergy/AdvReac Type Severity Reaction Status Date / Time Penicillins Allergy Unknown Verified 03/20/23 08:07 Childhood Tetanus Vaccines and Toxoid Allergy Unknown Verified 03/20/23 08:07 Childhood metformin AdvReac Nausea & Verified 03/20/23 08:07 Vomiting Physical Exam Vitals: Vital Signs Temp Pulse Pulse Resp BP BP Pulse Ox 03/21/23 11:41 70 17 03/21/23 11:30 98.2 F 70 17 116/67 96 03/21/23 09:15 98.5 F 70 17 118/61 96 03/21/23 03:55 98.1 F 73 16 130/78 95 03/21/23 02:55 98.2 F 79 18 129/65 97 03/21/23 01:15 129/65 03/21/23 01:13 98.2 F 79 18 178/82 97 03/21/23 00:00 84 16 122/72 94 L 03/20/23 22:00 80 18 102/60 95 03/20/23 18:50 89 18 134/73 96 03/20/23 16:55 98.2 F 83 18 111/62 94 L 03/20/23 15:00 64 18 104/55 99 Intake and Output 03/20/23 03/21/23 03/21/23 22:59 06:59 14:59 Intake Total 26.814 Output Total 300 200 Balance 26.814 -300 -200 Intake: Intake, IV Titration 26.814 Amount Insulin Regular 100 unit 26.814 In Sodium Chloride 0.9% 100 ml @ 0.1 UNITS/KG/HR 8.246 mls/hr IV .[id number] [facility] Rx#:[id number] Output: Urine 300 200 Other: Voiding Method External Catheter External Catheter Weight 81.647 kg 81.647 kg - Constitutional General appearance: no acute distress - EENT Eyes: EOMI, PERRLA ENT: hearing grossly normal, normal oropharynx - Neck Neck: no lymphadenopathy Thyroid: bilateral: normal size - Respiratory Respiratory: bilateral: CTA - Cardiovascular Rhythm: regular Heart sounds: normal: S1, S2 - Gastrointestinal General gastrointestinal: normal bowel sounds, soft - Genitourinary condom catheter in situ - Integumentary Bilateral feet bandaged - Neurologic Neurologic: CNII-XII intact - Musculoskeletal Musculoskeletal: generalized weakness, strength equal bilaterally - Psychiatric Psychiatric: A&O x's 3, appropriate affect Results CBC & Chem 7: 03/21/23 08:28 03/21/23 08:28 Labs: Abnormal Lab Results - Last 24 Hours (Table) 03/20/23 03/20/23 03/20/23 Range/Units 13:28 16:01 17:58 RBC (4.30-5.90) m/uL Hgb (13.0-17.5) gm/dL Hct (39.0-53.0) % Lymphocytes # (1.0-4.8) k/uL ESR (0-20) mm/Hr Sodium (137-145) mmol/L Potassium (3.5-5.1) mmol/L Glucose (74-99) mg/dL POC Glucose (mg/dL) 129 H 298 H (70-110) mg/dL Hemoglobin A1c (<=6.0) % Calcium (8.4-10.2) mg/dL AST (17-59) U/L Alkaline Phosphatase (38-126) U/L Creatine Kinase (55-170) U/L Troponin I 0.841 H* (0.000-0.034) ng/mL C-Reactive Protein (<1.0) mg/dL Total Protein (6.3-8.2) g/dL Albumin (3.5-5.0) g/dL 03/20/23 03/21/23 03/21/23 Range/Units 21:43 00:59 06:00 RBC (4.30-5.90) m/uL Hgb (13.0-17.5) gm/dL Hct (39.0-53.0) % Lymphocytes # (1.0-4.8) k/uL ESR (0-20) mm/Hr Sodium (137-145) mmol/L Potassium (3.5-5.1) mmol/L Glucose (74-99) mg/dL POC Glucose (mg/dL) 136 H 65 L 160 H (70-110) mg/dL Hemoglobin A1c (<=6.0) % Calcium (8.4-10.2) mg/dL AST (17-59) U/L Alkaline Phosphatase (38-126) U/L Creatine Kinase (55-170) U/L Troponin I (0.000-0.034) ng/mL C-Reactive Protein (<1.0) mg/dL Total Protein (6.3-8.2) g/dL Albumin (3.5-5.0) g/dL 03/21/23 03/21/23 03/21/23 Range/Units 08:28 08:28 08:28 RBC 3.05 L (4.30-5.90) m/uL Hgb 8.6 L D (13.0-17.5) gm/dL Hct 26.7 L (39.0-53.0) % Lymphocytes # 0.4 L (1.0-4.8) k/uL ESR 88 H (0-20) mm/Hr Sodium 135 L (137-145) mmol/L Potassium 3.4 L (3.5-5.1) mmol/L Glucose 156 H (74-99) mg/dL POC Glucose (mg/dL) (70-110) mg/dL Hemoglobin A1c 10.4 H (<=6.0) % Calcium 8.2 L (8.4-10.2) mg/dL AST 132 H (17-59) U/L Alkaline Phosphatase 191 H (38-126) U/L Creatine Kinase 867 H (55-170) U/L Troponin I (0.000-0.034) ng/mL C-Reactive Protein 20.5 H (<1.0) mg/dL Total Protein 5.6 L (6.3-8.2) g/dL Albumin 2.5 L (3.5-5.0) g/dL 03/21/23 Range/Units 12:17 RBC (4.30-5.90) m/uL Hgb (13.0-17.5) gm/dL Hct (39.0-53.0) % Lymphocytes # (1.0-4.8) k/uL ESR (0-20) mm/Hr Sodium (137-145) mmol/L Potassium (3.5-5.1) mmol/L Glucose (74-99) mg/dL POC Glucose (mg/dL) 213 H (70-110) mg/dL Hemoglobin A1c (<=6.0) % Calcium (8.4-10.2) mg/dL AST (17-59) U/L Alkaline Phosphatase (38-126) U/L Creatine Kinase (55-170) U/L Troponin I (0.000-0.034) ng/mL C-Reactive Protein (<1.0) mg/dL Total Protein (6.3-8.2) g/dL Albumin (3.5-5.0) g/dL Microbiology - Last 24 Hours (Table) 03/20/23 00:15 Blood Culture - Preliminary Blood 03/20/23 00:25 Blood Culture - Preliminary Blood 03/20/23 12:47 Gram Stain - Preliminary Foot - Right Wound Culture - Preliminary Martine albicans 03/20/23 12:47 Gram Stain - Preliminary Toe - Left First Wound Culture - Preliminary Martine albicans Comments: X-ray hip/pelvis report reviewed CT scan - abdomen: report reviewed CT scan - pelvis: report reviewed Assessment and Plan (1) Malignant neoplasm of prostate Narrative/Plan: The patient has been having some progressive weakness, fall the reports new areas of bone pain. Most recent CT scans did not appear to show any definite evidence of progression. - Check PSA. If stable, the patient can continue Nubeqa while inpatient, from home - I will also check bone scan to evaluate for metastatic progression. If negative for the same it is possible that the new areas of pain and due to benign trauma from his falls. Current Visit: No Status: Acute Priority: Medium Code(s): C61 - MALIGNANT NEOPLASM OF PROSTATE SNOMED Code(s): 478310299 (2) Anemia Narrative/Plan: The patient's baseline hemoglobin is in the 10 range, and his current level is at 8.6. This could be due to inflammatory suppression, from his nonhealing wounds, and ongoing antibiotic therapy. Check labs to rule out other etiologies Current Visit: No Status: Acute Priority: Medium Code(s): D64.9 - ANEMIA, UNSPECIFIED SNOMED Code(s): 998829991
--- NOTE | 2023-03-21 15:38 | CA ---
Transthoracic Echo Report Name: Aba Neff Age: 67 Gender: M : 1955 Exam Date: 03/20/2023 15:04 Exam Location: [place] [facility] Ht (in): 72 Wt (lb): 180 Ordering Physician: Devin Novak MD ([id number]) Attending/Referring Phys: Aircraft Charter Dispatcher Shabnam Tucker RDCS Procedure CPT: Indications: elevated trop Cardiac Hx: Technical Quality: Fair Contrast 1: Total Dose (mL): Contrast 2: Total Dose (mL): MEASUREMENTS (Male / Female) Normal Values 2D ECHO LV Diastolic Diameter PLAX 5.3 cm 4.2 - 5.9 / 3.9 - 5.3 cm LV Systolic Diameter PLAX 3.1 cm IVS Diastolic Thickness 1.4 cm 0.6 - 1.0 / 0.6 - 0.9 cm LVPW Diastolic Thickness 1.5 cm 0.6 - 1.0 / 0.6 - 0.9 cm LV Relative Wall Thickness 0.6 RV Internal Dim ED PLAX 4.1 cm LVOT Diameter 2.4 cm LA Volume 71.7 cm??? 18 - 58 / 22 - 52 cm??? LA Volume Index 35.1 cm???/m??? 16 - 28 cm???/m??? M-MODE Aortic Root Diameter MM 3.9 cm LA Systolic Diameter MM 4.5 cm LA Ao Ratio MM 1.2 AV Cusp Separation MM 1.3 cm DOPPLER AV Peak Velocity 138.6 cm/s AV Peak Gradient 7.7 mmHg AV Mean Velocity 101.5 cm/s AV Mean Gradient 4.6 mmHg AV Velocity Time Integral 27.0 cm LVOT Peak Velocity 83.6 cm/s LVOT Peak Gradient 2.8 mmHg LVOT Velocity Time Integral 17.7 cm LVOT Stroke Volume 78.8 cm??? LVOT Stroke Volume Index 38.7 ml/m??? LVOT Cardiac Index 2585.5 cm???/min???m??? AV Area Cont Eq vti 2.9 cm??? AV Area Cont Eq pk 2.7 cm??? MV Area PHT 3.6 cm??? Mitral E Point Velocity 100.1 cm/s Mitral A Point Velocity 64.3 cm/s Mitral E to A Ratio 1.6 MV Deceleration Time 213.6 ms MV E' Velocity 6.1 cm/s Mitral E to MV E' Ratio 16.4 TR Peak Velocity 307.7 cm/s TR Peak Gradient 37.9 mmHg Right Ventricular Systolic Press 42.2 mmHg FINDINGS Left Ventricle Mildly increased left ventricular wall thickness. Left ventricular cavity size normal. Reduced global left ventricular systolic function. Left ventricular ejection fraction is estimated at 40 %. Right Ventricle Moderate right ventricular dilatation. Mild pulmonary hypertension. Right Atrium Mild right atrial dilatation. Left Atrium Moderately increased left atrial volume. Mitral Valve Structurally normal mitral valve. Mild mitral annular calcification. Mild-to- moderate mitral regurgitation. Aortic Valve No aortic stenosis. No aortic regurgitation. Aortic valve sclerosis. Tricuspid Valve Structurally normal tricuspid valve. Mild tricuspid regurgitation. Pulmonic Valve Structurally normal pulmonic valve. Pericardium No pericardial effusion. Aorta Normal size aortic root and proximal ascending aorta. CONCLUSIONS Impaired LV function. The ejection fraction is around 40% [id number] MR Previewed by: Dr. Devin Novak MD (Electronically Signed) Final Date: 21 March 2023 15:37
[2023-03-21 17:20] LABS: Glucose,Whole Blood 203 mg/dL (70-110)
[2023-03-21 20:54] LABS: Glucose,Whole Blood 186 mg/dL (70-110)
--- NOTE | 2023-03-21 21:30 | P.PN ---
Subjective Progress Note Date: 03/21/23 Principal diagnosis: Diabetic foot ulcer and osteomyelitis Patient is a 67-year male with a past medical history significant for diabetes mellitus patient did have a Charcot deformity of the right foot chronic nonhealing wound to the right foot plantar aspect with underlying osteomyelitis and also with the left big toe nonhealing wound presented to hospital with weakn ess and multiple falls and worsening pain to the lower back area. On today's evaluation that is 03/21/2023, the patient remains to be afebrile, the patient is breathing comfortably on room air and the patient denies any shortness of breath, the patient denies chest pain or any cough , patient de nies any nausea/vomiting abdominal pain or diarrhea, the patient complaining of pain to the lower back area. Patient did have white count 7.2, creatinine 0.96 local culture with Martine albicans, CT of the lumbar spine concerning for possible metastatic disease Objective - Vital Signs Vital signs: Vital Signs Temp 98.5 F 03/21/23 09:15 Pulse 70 03/21/23 09:15 Resp 17 03/21/23 09:15 BP 118/61 03/21/23 09:15 Pulse Ox 96 03/21/23 09:15 FiO2 Intake & Output 03/20/23 03/21/23 03/21/23 18:59 06:59 18:59 Intake Total 88.245 Output Total 300 Balance 88.245 -300 Weight 81.647 kg Intake: Intake, IV Titration 88.245 Amount Insulin Regular 100 unit 88.245 In Sodium Chloride 0.9% 100 ml @ 0.1 UNITS/KG/HR 8.246 mls/hr IV .[id number] [facility] Rx#:[id number] Output: Urine 300 Other: Voiding Method External Catheter External Catheter - Exam GENERAL DESCRIPTION: An elderly male lying in bed in no distress RESPIRATORY SYSTEM: Unlabored breathing , decreased breath sounds at bases HEART: S1 S2 regular rate and rhythm , ABDOMEN: Soft , no tenderness EXTREMITIES: Bilateral feet wounds are currently dressed no drainage on the dressing - Labs CBC & Chem 7: 03/21/23 08:28 03/21/23 08:28 Labs: Abnormal Lab Results - Last 24 Hours (Table) 03/20/23 03/20/23 03/20/23 Range/Units 11:00 12:05 13:06 RBC (4.30-5.90) m/uL Hgb (13.0-17.5) gm/dL Hct (39.0-53.0) % Lymphocytes # (1.0-4.8) k/uL POC Glucose (mg/dL) 321 H 280 H 191 H (70-110) mg/dL Troponin I (0.000-0.034) ng/mL 03/20/23 03/20/23 03/20/23 Range/Units 13:28 14:05 16:01 RBC (4.30-5.90) m/uL Hgb (13.0-17.5) gm/dL Hct (39.0-53.0) % Lymphocytes # (1.0-4.8) k/uL POC Glucose (mg/dL) 180 H 129 H (70-110) mg/dL Troponin I 0.841 H* (0.000-0.034) ng/mL 03/20/23 03/20/23 03/21/23 Range/Units 17:58 21:43 00:59 RBC (4.30-5.90) m/uL Hgb (13.0-17.5) gm/dL Hct (39.0-53.0) % Lymphocytes # (1.0-4.8) k/uL POC Glucose (mg/dL) 298 H 136 H 65 L (70-110) mg/dL Troponin I (0.000-0.034) ng/mL 03/21/23 03/21/23 Range/Units 06:00 08:28 RBC 3.05 L (4.30-5.90) m/uL Hgb 8.6 L D (13.0-17.5) gm/dL Hct 26.7 L (39.0-53.0) % Lymphocytes # 0.4 L (1.0-4.8) k/uL POC Glucose (mg/dL) 160 H (70-110) mg/dL Troponin I (0.000-0.034) ng/mL Microbiology - Last 24 Hours (Table) 03/20/23 12:47 Gram Stain - Preliminary Foot - Right Wound Culture - Preliminary Martine albicans 03/20/23 12:47 Gram Stain - Preliminary Toe - Left First Wound Culture - Preliminary Martine albicans Assessment and Plan (1) Diabetic foot ulcer Current Visit: Yes Status: Acute Priority: High Code(s): E11.621 - TYPE 2 DIABETES MELLITUS WITH FOOT ULCER; L97.509 - NON-PRESSURE CHRONIC ULCER OTH PRT UNSP FOOT W UNSP SEVERITY SNOMED Code(s): 268975862 (2) Foot osteomyelitis, right Current Visit: No Status: Acute Code(s): M86.9 - OSTEOMYELITIS, UNSPECIFIED SNOMED Code(s): 6929613491973623 Plan: 1patient presented to hospital with weakness multiple falls has been complaining of excruciating pain to the lower back area after a fall patient also have a nonhealing wound on the plantar aspect of the right foot as well as the left big toe with recent culture positive for MRSA Enterococcus faecalis and Alcaligenes faecalis for the patient was receiving antibiotic in the outpatient setting, patient did have persistent nonhealing of the wound which is probing down to the bone on the right foot plantar aspect concerning for acute on chronic osteomyelitis 2-local cultures have been obtained from both wounds and will guide further an tibiotic therapy 3-patient to continue cefepime daptomycin and Flagyl local wound care with Aquacel silver dressing. 4patient with excruciating lower back pain with a significant abnormality on the CT suspicious for metastatic disease PSA has been requested oncology consult has been requested Dictation was produced using [employer] dictation software. please excuse any grammatical, word or spelling errors.
[2023-03-21 23:37] LABS: % Iron Saturation 8.29 (15.00-50.00)
[2023-03-22 07:00] LABS: ALT 28 U/L (4-49); AST 76 U/L (17-59); African American GFR (CKD) >90 (>60 ml/min/1.73 sqM); Albumin 2.8 g/dL (3.5-5.0); Albumin/Globulin Ratio 0.9; Alkaline Phosphatase 172 U/L (38-126); Anion Gap 9 mmol/L; Blood Urea Nitrogen 13 mg/dL (9-20); Calcium 8.1 mg/dL (8.4-10.2); Carbon Dioxide 26 mmol/L (22-30); Chloride 101 mmol/L (98-107); Globulin 3.2 g/dL; Glucose 104 mg/dL (74-99); Non-African American GFR(CKD) 84 (>60 ml/min/1.73 sqM); Potassium 3.6 mmol/L (3.5-5.1); Sodium 136 mmol/L (137-145); Total Bilirubin 0.6 mg/dL (0.2-1.3)
[2023-03-22 07:25] LABS: Glucose,Whole Blood 113 mg/dL (70-110)
[2023-03-22] MEDS: INSULIN ASPART (NovoLOG) 100 UNIT/ML VIAL SQ SCH ×4 (08:42→21:07)
[2023-03-22] MEDS: MORPHINE SULFATE ER 30 MG TABLET PO SCH ×2 (09:03→21:06)
[2023-03-22] MEDS: HEPARIN SODIUM,PORCINE 5,000 UNIT/ML 1 ML VIAL SQ SCH ×2 (09:04→21:07)
[2023-03-22] MEDS: MAGNESIUM OXIDE 400 MG TAB PO SCH (09:05)
[2023-03-22] MEDS: POTASSIUM CHLORIDE ER 20 MEQ TAB.ER PO SCH ×2 (09:05→21:06)
[2023-03-22] MEDS: ASPIRIN 81 MG PO SCH (09:05)
[2023-03-22] MEDS: metroNIDAZOLE 500 MG TAB PO SCH ×3 (09:05→21:29)
[2023-03-22] MEDS: glipiZIDE 10 MG TAB PO SCH ×2 (09:05→16:28)
[2023-03-22] MEDS: GABAPENTIN 300 MG CAP PO SCH ×3 (09:05→21:06)
[2023-03-22] MEDS: CEFEPIME 2 GM in SODIUM CHLORIDE 0.9% 100 ML IVPB SCH ×2 (09:05→16:28)
[2023-03-22] MEDS: NUBEQA PO SCH ×2 (09:06→21:11)
[2023-03-22] MEDS: FAMOTIDINE 20 MG TAB PO SCH ×2 (09:06→21:06)
[2023-03-22] MEDS: CLOPIDOGREL 75 MG TAB PO SCH (09:06)
[2023-03-22] MEDS: carvediloL 3.125 MG TAB PO SCH ×2 (09:06→16:28)
[2023-03-22 10:16] LABS: Prostate Specific Antigen 10.7 ng/mL (0.000-4.500)
--- NOTE | 2023-03-22 10:36 | P.PN ---
Subjective Progress Note Date: 03/22/23 Aba dunn is 67 year old male patient who presented to the ER with concerns of generalized weakness. Patient had a recent lap sandra at [facility]. Patient reports that he has not been on his diabetic medication following lap sandra when EMS arrived they found elevated blood sugars greater than 600. Patient has been maintained on IV antibiotic vancomycin for right foot diabetic ulcers. Patient denies fevers at home. Additional medical history includes CAD, chest pain, CVA, diabetes mellitus, GI bleed, hyperlipidemia, hypertension, [place], prostate disorder, renal disease, sleep apnea, non-Hodgkin's lymphoma, heart cath with stent. Chest x-ray completed showing slightly prominent interstitial markings. Hip x-ray completed showing no acute fracture or dislocation. White blood cell 9.0 initial blood sugars greater than 600 patient was started on insulin drip. UA negative for ketones. Patient was resumed back on vancomycin. Troponin elevated 0.2-3 will order serial troponins and cardiac monitoring cardiology service is consulted. Vascular surgery and infectious disease service is consulted blood culture ordered. Repeat labs ordered. At this time patient is resting comfortably bed patient reports improvement with symptoms. Patient denies chest pain or shortness of breath. Patient denies nausea vomiting or diarrhea. Patient denies any urinary burning or frequency On 03/21/2023 patient was seen and examined on the medical floor he is alert and oriented 3, he is complaining of severe back pain that he rates at 10 out of 10, he states that he fell yesterday and hit his back, x-ray of the lumbar spine was done yesterday in the emergency room, and did not reveal any fracture, however it revealed diffuse sclerotic bone lesions, suggestive of metastatic d isease, at this time will check PSA and consult oncology in that regard. Patient is also having significant drop in hemoglobin since yesterday, will check stools for occult blood, will check iron panel vitamin B12 and folate level, will follow closely On 03/22/2023 patient is alert and oriented 3 patient is currently resting in bed. Oncology services are following bone scan ordered along with multiple lab values. Patient remains on IV daptomycin and Maxipime. Current vital signs temp 98.8, heart rate 77, respiratory rate 17, blood pressure 127/67 pulse with a pulse ox of 99% on room air Objective - Vital Signs Vital signs: Vital Signs Temp 98.8 F 03/22/23 07:22 Pulse 77 03/22/23 07:22 Resp 17 03/22/23 07:22 BP 127/67 03/22/23 07:22 Pulse Ox 99 03/22/23 07:22 FiO2 Intake & Output 03/21/23 03/22/23 03/22/23 18:59 06:59 18:59 Intake Total 300 Output Total 450 300 Balance -450 0 Weight 81.647 kg 81 kg Intake: Intake, IV Titration 100 Amount Cefepime 2 gm In Sodium 100 Chloride 0.9% 100 ml @ 25 mls/hr IVPB Q8HR [facility] Rx# :[id number] Oral 200 Output: Urine 450 300 Other: Voiding Method External Catheter External Catheter - Exam In general patient is alert and oriented x 3 in no distress HEENT head normocephalic and atraumatic Neck is supple no JVD no goiter no lymphadenopathy no carotid bruit Chest examination is clear to auscultation no crackles no wheezing Cardiac exam reveals regular heart sounds S1 and S2 no gallops no murmurs Abdomen is soft nontender no organomegaly with normal bowel sounds Extremity exam reveals minimal swelling, with bilateral wounds involving the feet and the toes Neurological examination reveals no gross focal deficits - Labs CBC & Chem 7: 03/21/23 08:28 03/22/23 06:28 Labs: Abnormal Lab Results - Last 24 Hours (Table) 03/21/23 03/21/23 03/21/23 Range/Units 08:28 08:28 08:28 ESR 88 H (0-20) mm/Hr Sodium 135 L (137-145) mmol/L Potassium 3.4 L (3.5-5.1) mmol/L Glucose 156 H (74-99) mg/dL POC Glucose (mg/dL) (70-110) mg/dL Hemoglobin A1c 10.4 H (<=6.0) % Calcium 8.2 L (8.4-10.2) mg/dL Iron (65-175) UG/DL TIBC (228-460) UG/DL % Saturation (15.00-50.00) Transferrin (204.0-354.0) mg/dL Ferritin (22.0-322.0) ng/mL AST 132 H (17-59) U/L Alkaline Phosphatase 191 H (38-126) U/L Creatine Kinase 867 H (55-170) U/L C-Reactive Protein 20.5 H (<1.0) mg/dL Total Protein 5.6 L (6.3-8.2) g/dL Albumin 2.5 L (3.5-5.0) g/dL Prostate Specific Ag (0.000-4.500) ng/mL Vitamin B12 (200.0-944.0) pg/mL 03/21/23 03/21/23 03/21/23 Range/Units 08:28 12:17 17:19 ESR (0-20) mm/Hr Sodium (137-145) mmol/L Potassium (3.5-5.1) mmol/L Glucose (74-99) mg/dL POC Glucose (mg/dL) 213 H 203 H (70-110) mg/dL Hemoglobin A1c (<=6.0) % Calcium (8.4-10.2) mg/dL Iron 16 L (65-175) UG/DL TIBC 193 L (228-460) UG/DL % Saturation 8.29 L (15.00-50.00) Transferrin 138.0 L (204.0-354.0) mg/dL Ferritin (22.0-322.0) ng/mL AST (17-59) U/L Alkaline Phosphatase (38-126) U/L Creatine Kinase (55-170) U/L C-Reactive Protein (<1.0) mg/dL Total Protein (6.3-8.2) g/dL Albumin (3.5-5.0) g/dL Prostate Specific Ag (0.000-4.500) ng/mL Vitamin B12 1009.0 H (200.0-944.0) pg/mL 03/21/23 03/22/23 03/22/23 Range/Units 20:51 06:28 06:28 ESR (0-20) mm/Hr Sodium 136 L (137-145) mmol/L Potassium (3.5-5.1) mmol/L Glucose 104 H (74-99) mg/dL POC Glucose (mg/dL) 186 H (70-110) mg/dL Hemoglobin A1c (<=6.0) % Calcium 8.1 L (8.4-10.2) mg/dL Iron (65-175) UG/DL TIBC (228-460) UG/DL % Saturation (15.00-50.00) Transferrin (204.0-354.0) mg/dL Ferritin 797.0 H (22.0-322.0) ng/mL AST 76 H (17-59) U/L Alkaline Phosphatase 172 H (38-126) U/L Creatine Kinase (55-170) U/L C-Reactive Protein (<1.0) mg/dL Total Protein 6.0 L (6.3-8.2) g/dL Albumin 2.8 L (3.5-5.0) g/dL Prostate Specific Ag 10.70 H (0.000-4.500) ng/mL Vitamin B12 (200.0-944.0) pg/mL 03/22/23 Range/Units 07:23 ESR (0-20) mm/Hr Sodium (137-145) mmol/L Potassium (3.5-5.1) mmol/L Glucose (74-99) mg/dL POC Glucose (mg/dL) 113 H (70-110) mg/dL Hemoglobin A1c (<=6.0) % Calcium (8.4-10.2) mg/dL Iron (65-175) UG/DL TIBC (228-460) UG/DL % Saturation (15.00-50.00) Transferrin (204.0-354.0) mg/dL Ferritin (22.0-322.0) ng/mL AST (17-59) U/L Alkaline Phosphatase (38-126) U/L Creatine Kinase (55-170) U/L C-Reactive Protein (<1.0) mg/dL Total Protein (6.3-8.2) g/dL Albumin (3.5-5.0) g/dL Prostate Specific Ag (0.000-4.500) ng/mL Vitamin B12 (200.0-944.0) pg/mL Microbiology - Last 24 Hours (Table) 03/20/23 12:47 Gram Stain - Final Toe - Left First Wound Culture - Final Martine albicans 03/20/23 12:47 Gram Stain - Final Foot - Right Wound Culture - Final Martine albicans 03/20/23 00:15 Blood Culture - Preliminary Blood 03/20/23 00:25 Blood Culture - Preliminary Blood Assessment and Plan Assessment: 1. Uncontrolled diabetes mellitus with hyperglycemia. 2. Recent laparoscopic cholecystectomy Analy Jeffery 3. Diabetic foot ulcers maintained on IV antibiotics 4. Generalized weakness 5. Elevated troponin 6. underlying history of sga-utptdlk-lhxscgbog diabetes mellitus 7. Underlying history of essential hypertension 8. History of neuropathy 9. History of hyperlipidemia 10. History of peripheral vascular disease 11. History of coronary artery disease with history of myocardial infarction 12. History of GI bleeding 13. History of CVA 14. 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 Sclerotic lesions seen on CT lumbar spine. Oncology service is following. Bone scan ordered DVT prophylaxis heparin. GI prophylaxis Protonix Cardiology service is consulted for elevated troponin, repeat troponin ordered Infectious disease and vascular surgery consulted Patient remains on IV antibiotics Blood cultures ordered
[2023-03-22] MEDS ORDERED: ZINC OXIDE PASTE (Z-GUARD) 1 APPLIC APPLIC TOPICAL PRN (11:39)
[2023-03-22] MEDS: DAPTOmycin 500 MG in SODIUM CHLORIDE 0.9% 50 ML IVPB SCH (12:13)
[2023-03-22 12:17] LABS: Glucose,Whole Blood 129 mg/dL (70-110)
--- NOTE | 2023-03-22 13:36 | P.PN ---
Subjective Progress Note Date: 03/22/23 Principal diagnosis: Abnormal cardiac enzymes The patient is a 67-year-old gentleman who is known to our service from before with a past medical history significant for coronary artery disease and status post CABG with unknown details as well as hypertension and dyslipidemia and diabetes and history of smoking and history of iliac vein stenting. Also the patient does have history of metastatic prostate cancer Beside that he does have history of chronic wound involving the left foot. The patient underwent recently gallbladder surgery. The surgery went uneventfully. Since the surgery about 2 weeks ago he has not been feeding well. He has been experiencing progressive weakness and decrease in the appetite as well. There was a subtle changes on his diabetic medication around the surgery. He stated that earlier today he was in the shower and he fell with no loss of consciousness. No dizziness or lightheadedness and no feeling of heart racing or fluttering and no symptoms of chest pain or chest discomfort or shortness of breath. He presented to the emergency department for further evaluation. Hemodynamically he was stable beside mild sinus tachycardia. The pressure has been stable. He underwent a workup including a chest x-ray came in to be unremarkable and EKG showing sinus mechanism with PVCs and troponin came in to be slightly abnormal. Beside that his glucose was found to be elevated at 600. No chest pain or chest discomfort and no shortness of breath but he does have overall extremely poor functional capacity with the wound of the left foot which has been managed by Dr. Knapp regularly. Currently he is on aspirin and he is on Plavix and he is on statin and he is on beta myriam we'll continue that. We'll obtain an echocardiogram for more risk stratification. The last echo showed an ejection fraction within normal limits was no significant valvular abnormalities and mild pulmonary hypertension. I with consider medical treatment for low mildly abnormal troponin at this point awaiting for the results of the echo for more risk stratification. The examination is remarkable for distant heart sounds with regular rhythm and diminished breathing sounds bilaterally and left foot nonhealing wound involving the bottom of the foot. 03/21/2023 The patient was seen and evaluated this morning. He is asymptomatic and no chest pain or chest discomfort and no shortness of breath at this point. He is stable from the cardiac standpoint overview. The echo still pending. Dr. Knapp is on the case regarding the wound in the left foot. From a cardiac arrest was standpoint of view, I would continue the current medical regimen and follow-up with the patient. Follow-up with the echocardiogram. The examination is remarkable for distant heart sounds with regular rhythm and diminished breathing sounds bilaterally and left foot nonhealing wound 03/22/2023 The patient was seen and evaluated this morning. He is stable from a ca rdiovascular standpoint. The echo revealed impaired LV function with EF around 40% with [id number] mitral regurgitation. He is on maximize medical treatment except he is not on DOLLY inhibitor be going to start lisinopril 2.5 mg by mouth daily. The left foot ulcer continues to be managed by the vascular surgery service. Overall is doing well and reports no cardiac vascular symptoms at this point. The examination is remarkable for distant heart sounds with a clear breathing sounds bilaterally and nonhealing ulcer involving the left foot Assessment Generalized weakness and fatigue Uncontrolled diabetes Evidence of myocardial injury was no evidence of ischemia by EKG or clinically Coronary artery disease as described above Cardiomyopathy with an ejection fraction around 40% Multiple comorbid conditions Metastatic prostate cancer Plan Continue the current medical regimen Continue dual antiplatelet therapy along with a statin and beta myriam Add lisinopril to the current medical regimen Follow-up with the patient Objective - Vital Signs Vital signs: Vital Signs Temp 98.3 F 03/22/23 12:15 Pulse 70 03/22/23 12:15 Resp 17 03/22/23 12:15 BP 132/65 03/22/23 12:15 Pulse Ox 98 03/22/23 12:15 FiO2 Intake & Output 03/21/23 03/22/23 03/22/23 18:59 06:59 18:59 Intake Total 300 Output Total 450 300 Balance -450 0 Weight 81.647 kg 81 kg Intake: Intake, IV Titration 100 Amount Cefepime 2 gm In Sodium 100 Chloride 0.9% 100 ml @ 25 mls/hr IVPB Q8HR [facility] Rx# :[id number] Oral 200 Output: Urine 450 300 Other: Voiding Method External Catheter External Catheter External Catheter - Labs CBC & Chem 7: 03/21/23 08:28 03/22/23 06:28 Labs: Abnormal Lab Results - Last 24 Hours (Table) 03/21/23 03/21/23 03/21/23 Range/Units 08:28 17:19 20:51 Sodium (137-145) mmol/L Glucose (74-99) mg/dL POC Glucose (mg/dL) 203 H 186 H (70-110) mg/dL Calcium (8.4-10.2) mg/dL Iron 16 L (65-175) UG/DL TIBC 193 L (228-460) UG/DL % Saturation 8.29 L (15.00-50.00) Transferrin 138.0 L (204.0-354.0) mg/dL Ferritin (22.0-322.0) ng/mL AST (17-59) U/L Alkaline Phosphatase (38-126) U/L Total Protein (6.3-8.2) g/dL Albumin (3.5-5.0) g/dL Prostate Specific Ag (0.000-4.500) ng/mL Vitamin B12 1009.0 H (200.0-944.0) pg/mL 03/22/23 03/22/23 03/22/23 Range/Units 06:28 06:28 07:23 Sodium 136 L (137-145) mmol/L Glucose 104 H (74-99) mg/dL POC Glucose (mg/dL) 113 H (70-110) mg/dL Calcium 8.1 L (8.4-10.2) mg/dL Iron (65-175) UG/DL TIBC (228-460) UG/DL % Saturation (15.00-50.00) Transferrin (204.0-354.0) mg/dL Ferritin 797.0 H (22.0-322.0) ng/mL AST 76 H (17-59) U/L Alkaline Phosphatase 172 H (38-126) U/L Total Protein 6.0 L (6.3-8.2) g/dL Albumin 2.8 L (3.5-5.0) g/dL Prostate Specific Ag 10.70 H (0.000-4.500) ng/mL Vitamin B12 (200.0-944.0) pg/mL 03/22/23 Range/Units 12:16 Sodium (137-145) mmol/L Glucose (74-99) mg/dL POC Glucose (mg/dL) 129 H (70-110) mg/dL Calcium (8.4-10.2) mg/dL Iron (65-175) UG/DL TIBC (228-460) UG/DL % Saturation (15.00-50.00) Transferrin (204.0-354.0) mg/dL Ferritin (22.0-322.0) ng/mL AST (17-59) U/L Alkaline Phosphatase (38-126) U/L Total Protein (6.3-8.2) g/dL Albumin (3.5-5.0) g/dL Prostate Specific Ag (0.000-4.500) ng/mL Vitamin B12 (200.0-944.0) pg/mL Microbiology - Last 24 Hours (Table) 03/20/23 00:15 Blood Culture - Preliminary Blood 03/20/23 00:25 Blood Culture - Preliminary Blood 03/20/23 12:47 Anaerobic Culture - Preliminary Foot - Right 03/20/23 12:47 Anaerobic Culture - Preliminary Toe - Left First 03/20/23 12:47 Gram Stain - Final Toe - Left First Wound Culture - Final Martine albicans 03/20/23 12:47 Gram Stain - Final Foot - Right Wound Culture - Final Martine albicans
--- NOTE | 2023-03-22 13:56 | CT ---
EXAMINATION TYPE: CT brain wo con CT DLP: 1098.8 mGycm, Automated exposure control for dose reduction was used. DATE OF EXAM: 03/22/2023 1:50 PM COMPARISON: . CLINICAL INDICATION:Male, 67 years old with history of confusion, altered mental status TECHNIQUE: Brain: Axial CT images of the brain were obtained with coronal and sagittal reformats created and rev iewed. Contrast used: None. Oral contrast used: None. FINDINGS: Brain: Extra-axial spaces: No abnormal extra-axial fluid collections. Ventricular system: Within normal limits Cerebral parenchyma: No acute intraparenchymal hemorrhage or mass effect. The nuñez-white junction is well differentiated. Scattered hypoattenuating areas are seen within the white matter. Mild generali zed parenchymal volume loss Cerebellum: Unremarkable. Mass effect: No evidence of midline shift. Intracranial vasculature: Atherosclerotic calcifications of the intracranial vessels. Soft tissues: Normal. Calvarium/osseous structures: No depressed skull fracture. Paranasal sinuses and mastoid air cells: Mild scattered paranasal sinus disease. Visualized orbits: Bilateral aphakia IMPRESSION: 1. No acute intracranial process. 2. Nonspecific white matter changes, likely secondary to chronic small vessel ischemic disease.
[2023-03-22 15:07] LABS: Basophils # (A) 0.05 X 10*3/uL (0.00-0.10); Basophils % (A) 0.7 %; Eosinophils # (A) 0.17 X 10*3/uL (0.04-0.35); Eosinophils % (A) 2.3 %; HCT 29.9 % (39.6-50.0); Lymphocytes # (A) 0.48 X 10*3/uL (0.90-5.00); Lymphocytes % (A) 6.5 %; MCH 27.3 pg (27.0-32.0); MCHC 30.1 g/dL (32.0-37.0); MCV 90.6 FL (80.0-97.0); Mean Platelet Volume 11.2 FL (9.5-12.2); Monocytes # (A) 0.33 X 10*3/uL (0.20-1.00); Monocytes % (A) 4.4 %; NRBC Per 100 WBC 0 X 10*3/uL (0.00-0.01); Neutrophils # (A) 6.36 X 10*3/uL (1.80-7.70); Neutrophils % (A) 85.7 %; Platelet Count 224 X 10*3/uL (140-440); RDW 14.9 % (11.5-14.5); WBC 7.42 X 10*3/uL (4.50-10.00)
[2023-03-22 15:14] LABS: Erythrocyte Sedimentation Rate 118 mm/Hr (0-20)
[2023-03-22 15:19] LABS: Reticulocyte % 2.52 % (0.10-1.80)
[2023-03-22 17:07] LABS: Glucose,Whole Blood 108 mg/dL (70-110)
[2023-03-22] MEDS: HYDROmorphone 0.5 MG/0.5 ML SYRINGE IVP PRN (17:55)
--- NOTE | 2023-03-22 18:01 | US ---
EXAMINATION TYPE: US mass soft tissue chest/back DATE OF EXAM: 03/22/2023 COMPARISON: CT 03/20/2023 CLINICAL INDICATION: Male, 67 years old with history of possible hematoma; Lump lower back spine Hx o f bone and prostate CA patient feel on his back in the shower on Thursday TECHNIQUE: Grayscale imaging over the area of low back FINDINGS: Scanned lump area lower back heterogenous hypoechoic area seen measuring 3.7 x 1.7 x 3.2 c m. No internal color Doppler flow. IMPRESSION: Palpable abnormality demonstrates a heterogenous indeterminate lesion which could represent hematoma in appropriate clinical setting. No CT correlate on CT from 03/20/2023 of the lumbar spine. This may be out of the sebyz-yq-dihz on that exam.
[2023-03-22 18:47] LABS: ABG HCO3 31 mmol/L (21-25); ABG Oxygen Saturation 91.4 % (94-97); ABG PCO2 41 mmHg (35-45); ABG PH 7.48 (7.35-7.45); ABG TCO2 32 mmol/L (19-24); Allen Test Performed? Yes
[2023-03-22 18:52] LABS: ABG PO2 55 mmHg (83-108)
[2023-03-22 19:24] LABS: Glucose,Whole Blood 94 mg/dL (70-110)
--- NOTE | 2023-03-22 21:01 | XR ---
EXAMINATION TYPE: XR chest 1V DATE OF EXAM: 03/22/2023 8:46 PM CLINICAL INDICATION:Male, 67 years old with history of hypoxia; COMPARISON: Chest radiographs from 03/20/2023 TECHNIQUE: XR chest 1V Frontal view of the chest. FINDINGS: Lungs/Pleura: Low lung volumes are present. There is no evidence of pleural effusion, focal consolida tion, or pneumothorax. Pulmonary vascularity: Pulmonary vascular congestion. Heart/mediastinum: Cardiomediastinal silhouette is enlarged and stable. Atherosclerotic calcificatio ns are seen in the aorta. Musculoskeletal: No acute osseous pathology. Midline sternotomy wires are noted. Other findings: None Lines/Tubes: IMPRESSION: Low lung volumes with a generalized hazy appearance which could represent atelectasis versus pulmonar y edema correlate with serum BNP.
[2023-03-22] MEDS: oxyCODONE-APAP 10-325MG 1 EACH TAB PO PRN (21:06)
[2023-03-22] MEDS: NYSTATIN 100,000 UNIT/GM POWD 15 GM TOPICAL SCH (21:08)
[2023-03-23] MEDS: CEFEPIME 2 GM in SODIUM CHLORIDE 0.9% 100 ML IVPB SCH ×3 (01:26→17:34)
--- NOTE | 2023-03-23 01:45 | CT ---
EXAM: CT Angiography Chest With Intravenous Contrast CLINICAL HISTORY: ITS.REASON CT Reason: rule out PE TECHNIQUE: Axial computed tomographic angiography images of the chest with intravenous contrast. CTDI is 31.08 mGy and DLP is 480.3 mGy-cm. This CT exam was performed using one or more of the following dose reduction techniques: automated exposure control, adjustment of the mA and/or kV according to patient size, and/or use of iterative reconstruction technique. MIP reconstructed images were created and reviewed. COMPARISON: Comparison made to prior CT scan of the chest from October 01, 2022. FINDINGS: This study is limited secondary to motion artifact. Pulmonary arteries: Unremarkable. No pulmonary embolism. Aorta: Ectasia of the ascending aorta measuring 33.8 mm in diameter. Lungs: Bronchitis with pneumonitis in the lower lobes. Tiny consolidation at the right lung base and small consolidation at the left lung base. No mass. No consolidation. Pleural space: Tiny pleural effusions. No pneumothorax. Heart: Cardiomegaly status post CABG. No significant pericardial effusion. Mild RV dysfunction. Bones/joints: Status post median sternotomy. Multiple sclerotic lesions demonstrated in the thoracic spine. No dislocation. Soft tissues: Unremarkable. Lymph nodes: Prominent mediastinal lymph nodes. Prominent axillary lymph nodes. IMPRESSION: No evidence of pulmonary emboli on this limited study. Findings concerning for bronchitis with pneumonitis in the lower lobes with tiny consolidation at the right lung base and small consolidation at the left lung base with tiny pleural effusions. Cardiomegaly status post CABG. Multiple sclerotic lesions demonstrated in the thoracic spine concerning for metastatic disease. Recommend correlation with PSA.
--- NOTE | 2023-03-23 02:03 | P.CNPUL ---
History of Present Illness Consult date: 03/23/23 Requesting physician: Farooq Solis Reason for consult: other (Hypotension and ICU management) Chief complaint: Weakness and elevated blood sugars History of present illness: I am seeing this patient in new consultation today 03/23/2023 in the intensive care unit after he was transferred yesterday evening for hypotension and suspected sepsis. Patient is a 67-year-old white male with past medical history significant for right foot osteomyelitis receiving IV antibiotics on an outpatient basis, diabetic foot ulcers, diabetes mellitus, coronary artery disease with previous CABG, hyperlipidemia, hypertension, CVA/TIA, PVD, transitional cell carcinoma with previous left nephrectomy, prostate cancer, among other things. Patient also recently underwent cholecystectomy for acute ascending cholangitis earlier this month at an outside facility. Following the procedure there were reportedly some diabetic medication changes. Patient presented to the emergency room back on 03/20/2023 chiefly with the complaints of generalized weakness and high blood sugars. He also may have fell in the bathroom hitting his back, he was complaining of severe lower back pain on arrival. Currently, the patient is lethargic and confused, and most of this information is supplemented from the chart. He was receiving IV vancomycin outpatient for ongoing osteomyelitis of the right foot. He does have chronic wounds on bilateral feet. He is currently receiving IV antibiotics in the form of daptomycin, cefepime, and Flagyl per infectious disease. Patient does have a fluctuant lower back mass. Ultrasound of this area demonstrates a heterogenous indeterminate lesion which could represent hematoma. CT of the lower back demonstrated sclerotic lesions throughout the visualized osseous structures suggesting osseous metastatic disease. There was mild multilevel degenerative disc disease. No vertebral compression collapse or acute fracture seen. No large focal disc herniation or landen canal compromise seen. Patient does have active prostate cancer was on Nubeqa outpatient. As far as the patient's blood sugars, they're better controlled, on sliding scale insulin. Most recent BMP from yesterday shows a sodium 136, potassium 3.6, chloride 101, serum bicarb 26, BUN 13, creatinine 0.93, glucose 104. Most recent CBC from yesterday shows a WBC count of 7.4, hemoglobin 9, hematocrit 29.9, platelets 224. Apparently, the patient was hypotensive and confused earlier yesterday afternoon, and was transferred to the intensive care unit. He is receiving multiple narcotics for pain management around the clock. Brain CT did not show any acute intracranial process. ABG showed a pO2 of 55, pCO2 41, pH of 7.48. This was done on room air. Patient is currently resting comfortably on 2 L/m nasal cannula. D-dimer was elevated at 1.75, the patient is undergoing chest CTA. Clinical suspicion for pulmonary embolism is low. Troponins were mildly elevated at 0.841. Echocardiogram done this admission showed a mildly impaired left ventricular ejection fraction of 40% and mild-moderate mitral regurgitat ion. Chest x-ray at that time showed low lung volumes with generalized haziness appearance which could represent atelectasis versus pulmonary edema. Blood pressure is currently normotensive, not requiring any pressors. I do not see any record recorded hypotensive blood pressures. Heart rhythm appears normal sinus. Currently afebrile. Blood and wound cultures are pending. Overall prognosis is guarded, will continue to monitor in the intensive care unit. Review of Systems ROS unobtainable: due to mental status Past Medical History Past Medical History: Coronary Artery Disease (CAD), Cancer, Chest Pain / Angina, CVA/TIA, Diabetes Mellitus, GI Bleed, Hyperlipidemia, Hypertension, Myocardial Infarction ([place]), Prostate Disorder, Renal Disease, Sleep Apnea/CPAP/BIPAP Additional Past Medical History / Comment(s): CATRACHITO 2014 , C-DIFF 2012., HX DIVERTICULOSIS, NEUROPATHY IN HANDS & FEET., LEFT KIDNEY CANCER WITH NEPHRECTOMY URETER & PART OF BLADDER & LYMPH NODES REMOVED., HAS CYST RIGHT KIDNEY, STAGE 3 KIDNEY DISEASE., HX OF SLEEP APNEA (SURGERY)., NON-HODGKINS LYMPHOMA -LAST PET SCAN NEGATIVE., STATES NO RESIDUAL EFFECT FROM HX CVA/TIA., 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 Last Myocardial Infarction Date:: 2012 History of Any Multi-Drug Resistant Organisms: None Reported Date of last positivie culture/infection: 01/22/23 MDRO Source:: Toe Right FIrst Past Surgical History: Bowel Resection, Heart Catheterization, Heart Catheterization With Stent, Hernia Repair, Tonsillectomy Additional Past Surgical History / Comment(s): 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 , CIRCUMCISION cataracts., PIECE OF METAL REMOVED FROM ABD (WAR WOUND) - DEVELOPED SCAR TISSUE & PART OF LARGE INTESTINE REMOVED., ABD HERNIA REPAIR. SX FOR SLEEP APNEA. COLONOSCOPY/POLYPECTOMY., SUDHEER ILIAC VEIN STENTING.,, STATES TOTAL OF 4 CARDIAC STENTS, HEART CATH 12/2018. Past Anesthesia/Blood Transfusion Reactions: No Reported Reaction Date of Last Stent Placement:: 01/2014 Past Psychological History: No Psychological Hx Reported Additional Psychological History / Comment(s): . Smoking Status: Current every day smoker Past Alcohol Use History: Occasional Additional Past Alcohol Use History / Comment(s): QUIT SMOKING (MAR 2019). and restarted in 2019, STARTED SMOKING AT AGE 12. Past Drug Use History: None Reported - Past Family History Mother Additional Family Medical History / Comment(s): from complications from broken hip. Father Family Medical History: Cancer Sister(s) Family Medical History: Diabetes Mellitus, Deep Vein Thrombosis (DVT) Medications and Allergies Home Medications Medication Instructions Recorded Confirmed Type Clopidogrel Bisulfate [Clopidogrel] 75 mg PO DAILY 02/04/14 03/20/23 History Fluticasone Nasal [place] [Flonase 1 spr EA NOSTRIL DAILY PRN 04/29/19 03/20/23 History Nasal [place]] Gabapentin 600 mg PO TID 11/04/22 03/20/23 History hydrOXYzine HCL [Atarax] 50 mg PO HS PRN 11/04/22 03/20/23 History Aspirin 81 mg PO DAILY #30 tab 11/11/22 03/20/23 Rx Atorvastatin [Lipitor] 40 mg PO DAILY #30 tab 11/11/22 03/20/23 Rx Nubeqa 300 Mg Tablet 600 mg PO BID #0 11/11/22 03/20/23 Rx carvediloL [Coreg] 3.125 mg PO BID-W/MEALS 30 Days 11/11/22 03/20/23 Rx #60 tab Calcium Carb-Vit D 500Mg-5Mcg 1 tab PO TID-W/MEALS 11/24/22 03/20/23 History [Oscal 500+D 5 Mcg (200 Iu)] Potassium Chloride [K-Tab ER] 20 meq PO BID #60 tab 11/25/22 03/20/23 Rx Morphine Sulfate ER [Ms Contin] 30 mg PO BID 01/21/23 03/20/23 History oxyCODONE-APAP 10-325MG [Percocet 1 tab PO Q6H PRN 01/21/23 03/20/23 History 10-325 mg] Magnesium Oxide [Mag-Ox] 400 mg PO DAILY tab 01/26/23 03/20/23 Rx DAPTOmycin [Cubicin] 340 mg IV DAILY 03/20/23 03/20/23 History Furosemide [Lasix] 20 mg PO DAILY PRN 03/20/23 03/20/23 History cefTRIAXone [Rocephin] 2 gm IV DAILY 03/20/23 03/20/23 History Allergies Allergy/AdvReac Type Severity Reaction Status Date / Time Penicillins Allergy Unknown Verified 03/20/23 08:07 Childhood Tetanus Vaccines and Toxoid Allergy Unknown Verified 03/20/23 08:07 Childhood metformin AdvReac Nausea & Verified 03/20/23 08:07 Vomiting Physical Exam Vitals: Vital Signs Temp Pulse Pulse Resp BP BP Pulse Ox 03/22/23 23:00 64 11 L 95/57 92 L 03/22/23 22:45 64 11 L 95/57 90 L 03/22/23 22:30 66 7 L 119/93 93 L 03/22/23 22:15 66 8 L 119/93 97 03/22/23 22:00 66 13 106/33 99 03/22/23 21:45 69 15 106/33 95 03/22/23 21:30 67 13 113/68 91 L 03/22/23 21:15 68 13 117/64 95 03/22/23 21:00 68 14 123/65 95 03/22/23 20:45 69 14 113/61 95 03/22/23 20:30 70 15 102/58 95 03/22/23 20:15 69 14 114/65 93 L 03/22/23 20:00 98.2 F 70 16 111/80 94 L 03/22/23 19:45 70 16 131/77 93 L 03/22/23 19:30 79 14 130/72 94 L 03/22/23 14:00 70 17 03/22/23 12:15 98.3 F 70 17 132/65 98 03/22/23 08:45 77 17 03/22/23 07:22 98.8 F 77 17 127/67 99 03/22/23 04:00 98.1 F 68 17 118/69 98 Intake and Output 03/22/23 03/22/23 03/23/23 14:59 22:59 06:59 Output Total 850 0 Balance -850 0 Output: Urine 850 0 Other: Voiding Method External Catheter External Catheter External Catheter # Voids 1 0 GENERAL EXAM: Lethargic, requiring constant verbal stimulation to maintain wakefulness, 67-year-old white male, comfortable in no apparent distress. HEAD: Normocephalic and atraumatic EYES: Normal reaction of pupils, equal size. NOSE: Clear with pink turbinates. THROAT: No erythema or exudates. NECK: No masses, no JVD. CHEST: No chest wall deformity. LUNGS: Equal air entry with minimal bibasilar inspiratory crackles. No wheezes, rhonchi, dullness. On 2 L/m nasal cannula. No conversational dyspnea or accessory muscle use.. CVS: S1 and S2 normal with grade 1 systolic murmur, regular rhythm. No extra heart sounds ABDOMEN: No hepatosplenomegaly, active bowel sounds, no guarding or rigidity. SPINE: No scoliosis or deformity. There is a left lateral fluctuant mass SKIN: Right plantar foot wound measuring approximately 5 x 5 cm, with granulation tissue and mild amounts of sloughing. Left great toe wound measuring approximately 2 x 2 centimeters. CENTRAL NERVOUS SYSTEM: Lethargic. Oriented to self only. Able to follow simple commands. No focal deficits, tone is normal in all 4 extremities. EXTREMITIES: There is no peripheral edema, clubbing, or cyanosis. Peripheral pulses are intact. Results - Laboratory Findings CBC and BMP: 03/22/23 06:28 03/22/23 06:28 ABG ABG pH 7.48 (7.35-7.45) H 03/22/23 18:43 ABG pCO2 41 mmHg (35-45) 03/22/23 18:43 ABG pO2 55 mmHg (83-108) L* 03/22/23 18:43 ABG O2 Saturation 91.4 % (94-97) L 03/22/23 18:43 PT/INR, D-dimer D-Dimer 1.75 mg/L FEU (<0.60) H 03/22/23 20:31 Abnormal lab findings: Abnormal Labs 03/19/23 03/20/23 03/20/23 23:50 00:20 00:20 RBC 3.45 L Hgb 10.1 L Hct 31.5 L MCHC RDW Neutrophils # 8.2 H Lymphocytes # 0.4 L ESR Retic Count D-Dimer ABG pH ABG pO2 ABG HCO3 ABG Total CO2 ABG O2 Saturation Sodium 134 L Potassium 3.3 L Chloride 93 L Glucose 696 H* POC Glucose (mg/dL) >600 H Hemoglobin A1c Calcium Iron TIBC % Saturation Transferrin Ferritin AST Alkaline Phosphatase 154 H Creatine Kinase Troponin I C-Reactive Protein Total Protein Albumin Prostate Specific Ag Vitamin B12 Urine Glucose (UA) Urine Blood Urine Mucus 03/20/23 03/20/23 03/20/23 00:20 02:49 03:15 RBC Hgb Hct MCHC RDW Neutrophils # Lymphocytes # ESR Retic Count D-Dimer ABG pH ABG pO2 ABG HCO3 ABG Total CO2 ABG O2 Saturation Sodium Potassium Chloride Glucose POC Glucose (mg/dL) >600 H Hemoglobin A1c Calcium Iron TIBC % Saturation Transferrin Ferritin AST Alkaline Phosphatase Creatine Kinase Troponin I 0.223 H* C-Reactive Protein Total Protein Albumin Prostate Specific Ag Vitamin B12 Urine Glucose (UA) 4+ H Urine Blood Small H Urine Mucus Rare H 03/20/23 03/20/23 03/20/23 04:48 06:55 07:57 RBC Hgb Hct MCHC RDW Neutrophils # Lymphocytes # ESR Retic Count D-Dimer ABG pH ABG pO2 ABG HCO3 ABG Total CO2 ABG O2 Saturation Sodium Potassium Chloride Glucose POC Glucose (mg/dL) 598 H >600 H Hemoglobin A1c Calcium Iron TIBC % Saturation Transferrin Ferritin AST Alkaline Phosphatase Creatine Kinase Troponin I C-Reactive Protein Total Protein Albumin Prostate Specific Ag Vitamin B12 Urine Glucose (UA) 4+ H Urine Blood Small H Urine Mucus 03/20/23 03/20/23 03/20/23 09:24 11:00 12:05 RBC Hgb Hct MCHC RDW Neutrophils # Lymphocytes # ESR Retic Count D-Dimer ABG pH ABG pO2 ABG HCO3 ABG Total CO2 ABG O2 Saturation Sodium Potassium Chloride Glucose POC Glucose (mg/dL) >600 H 321 H 280 H Hemoglobin A1c Calcium Iron TIBC % Saturation Transferrin Ferritin AST Alkaline Phosphatase Creatine Kinase Troponin I C-Reactive Protein Total Protein Albumin Prostate Specific Ag Vitamin B12 Urine Glucose (UA) Urine Blood Urine Mucus 03/20/23 03/20/23 03/20/23 13:06 13:28 14:05 RBC Hgb Hct MCHC RDW Neutrophils # Lymphocytes # ESR Retic Count D-Dimer ABG pH ABG pO2 ABG HCO3 ABG Total CO2 ABG O2 Saturation Sodium Potassium Chloride Glucose POC Glucose (mg/dL) 191 H 180 H Hemoglobin A1c Calcium Iron TIBC % Saturation Transferrin Ferritin AST Alkaline Phosphatase Creatine Kinase Troponin I 0.841 H* C-Reactive Protein Total Protein Albumin Prostate Specific Ag Vitamin B12 Urine Glucose (UA) Urine Blood Urine Mucus 03/20/23 03/20/23 03/20/23 16:01 17:58 21:43 RBC Hgb Hct MCHC RDW Neutrophils # Lymphocytes # ESR Retic Count D-Dimer ABG pH ABG pO2 ABG HCO3 ABG Total CO2 ABG O2 Saturation Sodium Potassium Chloride Glucose POC Glucose (mg/dL) 129 H 298 H 136 H Hemoglobin A1c Calcium Iron TIBC % Saturation Transferrin Ferritin AST Alkaline Phosphatase Creatine Kinase Troponin I C-Reactive Protein Total Protein Albumin Prostate Specific Ag Vitamin B12 Urine Glucose (UA) Urine Blood Urine Mucus 03/21/23 03/21/23 03/21/23 00:59 06:00 08:28 RBC Hgb Hct MCHC RDW Neutrophils # Lymphocytes # ESR Retic Count D-Dimer ABG pH ABG pO2 ABG HCO3 ABG Total CO2 ABG O2 Saturation Sodium Potassium Chloride Glucose POC Glucose (mg/dL) 65 L 160 H Hemoglobin A1c 10.4 H Calcium Iron TIBC % Saturation Transferrin Ferritin AST Alkaline Phosphatase Creatine Kinase Troponin I C-Reactive Protein Total Protein Albumin Prostate Specific Ag Vitamin B12 Urine Glucose (UA) Urine Blood Urine Mucus 03/21/23 03/21/23 03/21/23 08:28 08:28 08:28 RBC 3.05 L Hgb 8.6 L D Hct 26.7 L MCHC RDW Neutrophils # Lymphocytes # 0.4 L ESR 88 H Retic Count D-Dimer ABG pH ABG pO2 ABG HCO3 ABG Total CO2 ABG O2 Saturation Sodium 135 L Potassium 3.4 L Chloride Glucose 156 H POC Glucose (mg/dL) Hemoglobin A1c Calcium 8.2 L Iron 16 L TIBC 193 L % Saturation 8.29 L Transferrin 138.0 L Ferritin AST 132 H Alkaline Phosphatase 191 H Creatine Kinase 867 H Troponin I C-Reactive Protein 20.5 H Total Protein 5.6 L Albumin 2.5 L Prostate Specific Ag Vitamin B12 1009.0 H Urine Glucose (UA) Urine Blood Urine Mucus 03/21/23 03/21/23 03/21/23 12:17 17:19 20:51 RBC Hgb Hct MCHC RDW Neutrophils # Lymphocytes # ESR Retic Count D-Dimer ABG pH ABG pO2 ABG HCO3 ABG Total CO2 ABG O2 Saturation Sodium Potassium Chloride Glucose POC Glucose (mg/dL) 213 H 203 H 186 H Hemoglobin A1c Calcium Iron TIBC % Saturation Transferrin Ferritin AST Alkaline Phosphatase Creatine Kinase Troponin I C-Reactive Protein Total Protein Albumin Prostate Specific Ag Vitamin B12 Urine Glucose (UA) Urine Blood Urine Mucus 03/22/23 03/22/23 03/22/23 06:28 06:28 06:28 RBC 3.30 L Hgb 9.0 L Hct 29.9 L MCHC 30.1 L RDW 14.9 H Neutrophils # Lymphocytes # 0.48 L ESR 118 H Retic Count 2.52 H D-Dimer ABG pH ABG pO2 ABG HCO3 ABG Total CO2 ABG O2 Saturation Sodium 136 L Potassium Chloride Glucose 104 H POC Glucose (mg/dL) Hemoglobin A1c Calcium 8.1 L Iron TIBC % Saturation Transferrin Ferritin 797.0 H AST 76 H Alkaline Phosphatase 172 H Creatine Kinase Troponin I C-Reactive Protein Total Protein 6.0 L Albumin 2.8 L Prostate Specific Ag 10.70 H Vitamin B12 Urine Glucose (UA) Urine Blood Urine Mucus 03/22/23 03/22/23 03/22/23 07:23 12:16 18:43 RBC Hgb Hct MCHC RDW Neutrophils # Lymphocytes # ESR Retic Count D-Dimer ABG pH 7.48 H ABG pO2 55 L* ABG HCO3 31 H ABG Total CO2 32 H ABG O2 Saturation 91.4 L Sodium Potassium Chloride Glucose POC Glucose (mg/dL) 113 H 129 H Hemoglobin A1c Calcium Iron TIBC % Saturation Transferrin Ferritin AST Alkaline Phosphatase Creatine Kinase Troponin I C-Reactive Protein Total Protein Albumin Prostate Specific Ag Vitamin B12 Urine Glucose (UA) Urine Blood Urine Mucus 03/22/23 20:31 RBC Hgb Hct MCHC RDW Neutrophils # Lymphocytes # ESR Retic Count D-Dimer 1.75 H ABG pH ABG pO2 ABG HCO3 ABG Total CO2 ABG O2 Saturation Sodium Potassium Chloride Glucose POC Glucose (mg/dL) Hemoglobin A1c Calcium Iron TIBC % Saturation Transferrin Ferritin AST Alkaline Phosphatase Creatine Kinase Troponin I C-Reactive Protein Total Protein Albumin Prostate Specific Ag Vitamin B12 Urine Glucose (UA) Urine Blood Urine Mucus - Diagnostic Findings Chest x-ray: image reviewed Assessment and Plan Assessment: Acute hypoxemic respiratory failure, currently on 2 L/m nasal cannula, possibly related to mild exacerbation of systolic congestive heart failure. Chest x-ray showed low lung volumes with generalized hazy appearance which could represent atelectasis versus pulmonary edema. No focal infiltrates or evidence of pneumonia. Hypotension and suspected sepsis, improved, not requiring vasopressors. Hyperglycemia, improved, on NovoLog sliding scale insulin Altered mental status, possibly related to metabolic encephalopathy, secondary to above Chronic osteomyelitis of the right foot, receiving IV antibiotics outpatient, currently on antibiotics per infectious disease Bilateral foot wounds Prostate cancer, maintained on Nubeqa outpatient Lower back pain, with suspected metastatic disease. CT of the lower back demonstrated sclerotic lesions throughout the visualized osseous structures suggesting osseous metastatic disease. There was mild multilevel degenerative disc disease. No vertebral compression collapse or acute fracture seen. No la rge focal disc herniation or landen canal compromise seen. Fall Lumbar mass, ultrasound of this area demonstrates a heterogenous indeterminate lesion which could represent hematoma Uncontrolled [id number] diabetes mellitus, with diabetic foot ulcers Coronary artery disease with previous CABG Hyperlipidemia History of hypertension History of CVA/TIA History of PVD with previous bilateral iliac stents Recent history of cholecystectomy History of previous left nephrectomy related to transitional cell carcinoma Anemia of chronic disease Plan: Patient was transferred to the intensive care unit yesterday evening chiefly for the reason of hypotension and altered mental status. Patient is receiving multiple narcotics around the clock for management of his back pain. Pain appears well managed, and I would hold at least some of these medications. CT of the brain did not show any acute intracranial process. No hemorrhage or mass effect. ABG did not show any evidence of hypercapnia. Patient was hypoxemic on room air, and placed on 2 L/m nasal cannula. He is receiving Lasix BID. D-dimer was elevated, and patient is going to receive a chest CTA, however clinical susp icion for pulmonary embolism is low. He is not in any respiratory distress. Blood pressure has been normotensive, not requiring any vasopressors. Blood cultures are pending, and show no growth at 48 hours. Wound cultures only showing Martine. Currently on a combination of antibiotics per infectious disease including daptomycin, cefepime, and Flagyl. Wound care added for bilateral lower extremity foot wounds. Oncology has been added to manage patient's history of prostate cancer and osseous metastatic lesions. Currently, scheduled for bone scan. We will continue to follow patient while in the intensive care unit, and further recommendations are forthcoming. I have personally seen and examined the patient, performed the documentation and the assessment and plan as written. Number of minutes spent on the visit:20 Time with Patient: Greater than 30
[2023-03-23 04:13] LABS: Basophils % (A) 0 %; Eosinophils # (A) 0.1 k/uL (0-0.7); Eosinophils % (A) 2 %; HGB 8.4 gm/dL (13.0-17.5); Hypochromasia Moderate; Lymphocytes # (A) 0.4 k/uL (1.0-4.8); Lymphocytes % (A) 6 %; MCH 28.2 pg (25.0-35.0); MCHC 32.2 g/dL (31.0-37.0); MCV 87.7 fL (80.0-100.0); Mean Platelet Volume 8.1; Monocytes # (A) 0.4 k/uL (0-1.0); Monocytes % (A) 5 %; Neutrophils # (A) 5.9 k/uL (1.3-7.7); Neutrophils % (A) 85 %; Platelet Count 229 k/uL (150-450); RBC 2.96 m/uL (4.30-5.90); RDW 15.3 % (11.5-15.5); WBC 6.9 k/uL (3.8-10.6)
[2023-03-23 04:27] LABS: ALT 22 U/L (4-49); AST 48 U/L (17-59); African American GFR (CKD) >90 (>60 ml/min/1.73 sqM); Albumin 2.5 g/dL (3.5-5.0); Alkaline Phosphatase 134 U/L (38-126); Anion Gap 6 mmol/L; Blood Urea Nitrogen 13 mg/dL (9-20); Calcium 7.7 mg/dL (8.4-10.2); Carbon Dioxide 29 mmol/L (22-30); Chloride 102 mmol/L (98-107); Glucose 60 mg/dL (74-99); Non-African American GFR(CKD) 88 (>60 ml/min/1.73 sqM); Potassium 3.5 mmol/L (3.5-5.1); Sodium 137 mmol/L (137-145); Total Bilirubin 0.5 mg/dL (0.2-1.3); Total Protein 5.4 g/dL (6.3-8.2)
[2023-03-23 05:42] LABS: Glucose,Whole Blood 69 mg/dL (70-110)
[2023-03-23] MEDS: SODIUM CHLORIDE 0.9% 1,000 ML IV SCH (06:06)
[2023-03-23 07:36] LABS: Glucose,Whole Blood 83 mg/dL (70-110)
[2023-03-23] MEDS: INSULIN ASPART (NovoLOG) 100 UNIT/ML VIAL SQ SCH ×4 (07:54→22:30)
[2023-03-23] MEDS: POTASSIUM CHLORIDE ER 20 MEQ TAB.ER PO SCH ×3 (08:00→10:22)
[2023-03-23] MEDS: carvediloL 3.125 MG TAB PO SCH ×2 (08:00→17:34)
[2023-03-23] MEDS: glipiZIDE 10 MG TAB PO SCH ×2 (09:01→17:33)
[2023-03-23] MEDS: CLOPIDOGREL 75 MG TAB PO SCH (10:19)
[2023-03-23] MEDS: GABAPENTIN 300 MG CAP PO SCH ×2 (10:19→17:34)
[2023-03-23] MEDS: MAGNESIUM OXIDE 400 MG TAB PO SCH (10:19)
[2023-03-23] MEDS: ASPIRIN 81 MG PO SCH (10:19)
[2023-03-23] MEDS: FAMOTIDINE 20 MG TAB PO SCH (10:20)
[2023-03-23] MEDS: HEPARIN SODIUM,PORCINE 5,000 UNIT/ML 1 ML VIAL SQ SCH (10:20)
[2023-03-23] MEDS: NUBEQA PO SCH (10:20)
[2023-03-23] MEDS: NYSTATIN 100,000 UNIT/GM POWD 15 GM TOPICAL SCH (10:21)
[2023-03-23] MEDS: metroNIDAZOLE 500 MG TAB PO SCH ×2 (10:58→17:34)
[2023-03-23] MEDS: DAPTOmycin 500 MG in SODIUM CHLORIDE 0.9% 50 ML IVPB SCH (10:58)
[2023-03-23 11:36] LABS: Glucose,Whole Blood 75 mg/dL (70-110)
[2023-03-23] MEDS: oxyCODONE-APAP 10-325MG 1 EACH TAB PO PRN (11:38)
--- NOTE | 2023-03-23 13:14 | P.PN ---
Subjective Progress Note Date: 03/23/23 Principal diagnosis: met prostate cancer Patient was seen in the ICU at today's visit. Patient is complaining of lower back pain. Patient is confused and lethargic Objective - Vital Signs Vital signs: Vital Signs Temp 98.4 F 03/23/23 11:00 Pulse 74 03/23/23 11:30 Resp 6 L 03/23/23 11:30 BP 150/82 03/23/23 11:30 Pulse Ox 94 L 03/23/23 11:30 FiO2 Intake & Output 03/22/23 03/23/23 03/23/23 18:59 06:59 18:59 Intake Total 800 250 Output Total 550 650 350 Balance -550 150 -100 Weight 76.8 kg 76.8 kg Intake: IV 380 250 0.9 180 Cefepime 2 gm In Sodium 100 Chloride 0.9% 100 ml @ 25 mls/hr IVPB Q8HR [facility] Rx# :[id number] Sodium Chloride 0.9% 1, 100 250 000 ml @ 50 mls/hr IV . Q20H [facility] Rx#:[id number] Oral 420 Output: Urine 550 650 350 Other: Voiding Method External Catheter External Catheter External Catheter # Voids 1 0 - Constitutional General appearance: Present: average body habitus, no acute distress - Respiratory Details: breathing is even and unlabored - Cardiovascular Details: skin warm and dry - Gastrointestinal General gastrointestinal: Present: soft. Absent: tenderness - Musculoskeletal Musculoskeletal Comment(s): hematoma to lower thoracic/upper lumbar spine, with midline lumbar tenderness Musculoskeletal: Present: generalized weakness - Psychiatric Psychiatric Comment(s): confused, alert to person - Labs CBC & Chem 7: 03/23/23 03:41 03/23/23 03:41 Labs: Abnormal Lab Results - Last 24 Hours (Table) 03/22/23 03/22/23 03/22/23 Range/Units 06:28 18:43 20:31 RBC 3.30 L (4.40-5.60) X 10*6/uL Hgb 9.0 L (13.0-17.0) g/dL Hct 29.9 L (39.6-50.0) % MCHC 30.1 L (32.0-37.0) g/dL RDW 14.9 H (11.5-14.5) % Lymphocytes # 0.48 L (0.90-5.00) X 10*3/uL ESR 118 H (0-20) mm/Hr Retic Count 2.52 H (0.10-1.80) % D-Dimer 1.75 H (<0.60) mg/L FEU ABG pH 7.48 H (7.35-7.45) ABG pO2 55 L* (83-108) mmHg ABG HCO3 31 H (21-25) mmol/L ABG Total CO2 32 H (19-24) mmol/L ABG O2 Saturation 91.4 L (94-97) % Glucose (74-99) mg/dL POC Glucose (mg/dL) (70-110) mg/dL Calcium (8.4-10.2) mg/dL Alkaline Phosphatase (38-126) U/L Total Protein (6.3-8.2) g/dL Albumin (3.5-5.0) g/dL Procalcitonin (0.02-0.09) ng/mL 03/23/23 03/23/23 03/23/23 Range/Units 03:41 03:41 03:41 RBC 2.96 L (4.40-5.60) X 10*6/uL Hgb 8.4 L (13.0-17.0) g/dL Hct 26.0 L (39.6-50.0) % MCHC (32.0-37.0) g/dL RDW (11.5-14.5) % Lymphocytes # 0.4 L (0.90-5.00) X 10*3/uL ESR (0-20) mm/Hr Retic Count (0.10-1.80) % D-Dimer (<0.60) mg/L FEU ABG pH (7.35-7.45) ABG pO2 (83-108) mmHg ABG HCO3 (21-25) mmol/L ABG Total CO2 (19-24) mmol/L ABG O2 Saturation (94-97) % Glucose 60 L (74-99) mg/dL POC Glucose (mg/dL) (70-110) mg/dL Calcium 7.7 L (8.4-10.2) mg/dL Alkaline Phosphatase 134 H (38-126) U/L Total Protein 5.4 L (6.3-8.2) g/dL Albumin 2.5 L (3.5-5.0) g/dL Procalcitonin 0.32 H (0.02-0.09) ng/mL 03/23/23 Range/Units 05:40 RBC (4.40-5.60) X 10*6/uL Hgb (13.0-17.0) g/dL Hct (39.6-50.0) % MCHC (32.0-37.0) g/dL RDW (11.5-14.5) % Lymphocytes # (0.90-5.00) X 10*3/uL ESR (0-20) mm/Hr Retic Count (0.10-1.80) % D-Dimer (<0.60) mg/L FEU ABG pH (7.35-7.45) ABG pO2 (83-108) mmHg ABG HCO3 (21-25) mmol/L ABG Total CO2 (19-24) mmol/L ABG O2 Saturation (94-97) % Glucose (74-99) mg/dL POC Glucose (mg/dL) 69 L (70-110) mg/dL Calcium (8.4-10.2) mg/dL Alkaline Phosphatase (38-126) U/L Total Protein (6.3-8.2) g/dL Albumin (3.5-5.0) g/dL Procalcitonin (0.02-0.09) ng/mL Microbiology - Last 24 Hours (Table) 03/20/23 00:15 Blood Culture - Preliminary Blood 03/20/23 00:25 Blood Culture - Preliminary Blood 03/20/23 12:47 Anaerobic Culture - Preliminary Foot - Right 03/20/23 12:47 Anaerobic Culture - Preliminary Toe - Left First 03/20/23 12:47 Gram Stain - Final Toe - Left First Wound Culture - Final Martine albicans 03/20/23 12:47 Gram Stain - Final Foot - Right Wound Culture - Final Martine albicans - Imaging and Cardiology CT scan - chest: report reviewed Assessment and Plan (1) Diabetic foot ulcer Current Visit: Yes Status: Acute Priority: High Code(s): E11.621 - TYPE 2 DIABETES MELLITUS WITH FOOT ULCER; L97.509 - NON-PRESSURE CHRONIC ULCER OTH PRT UNSP FOOT W UNSP SEVERITY SNOMED Code(s): 393419185 (2) Uncontrolled diabetes mellitus Current Visit: Yes Status: Acute Priority: High Code(s): JCV8828 - SNOMED Code(s): 59046042 (3) Malignant neoplasm of prostate Current Visit: Yes Status: Acute Priority: High Code(s): C61 - MALIGNANT NEOPLASM OF PROSTATE SNOMED Code(s): 543970100 (4) Anemia Current Visit: Yes Status: Acute Priority: Medium Code(s): D64.9 - ANEMIA, UNSPECIFIED SNOMED Code(s): 491758601 Plan: Metastatic prostate cancer: -The patient has been having some progressive weakness, fall the reports new areas of bone pain. Most recent CT scans did not appear to show any definite evidence of progression. - PSA in clinc 11/2022, 1.30. PSA now 10.7, concerning for progression of disease - Bone scan ordered to evaluate for metastatic progression. If negative for the same it is possible that the new areas of pain and due to benign trauma from his falls. -Will hold nubeqa for now. Clinic f/u with Dr. Moran will be schedule upon discharge Anemia: -The patient's baseline hemoglobin is in the 10 range, and his current level is at 8-9 range. -Anemia workup negative, this is likely due to inflammatory suppression, from his nonhealing wounds, and ongoing antibiotic therapy -Will continue to monitor, please transfuse for hgb less than 7 or if symptomatic
--- NOTE | 2023-03-23 14:55 | NM ---
EXAMINATION TYPE: NM bone scan whole body DATE OF EXAM: 03/23/2023 COMPARISON: 11/07/2022, 03/03/2023, 02/17/2023 CLINICAL INDICATION: Male, 67 years old with history of Metastatic prostate cancer, new pain, restagi ng; Delayed whole-body scanning was performed following the injection of 23.0 mCi Tc 99m MDP. Images acq uired 3.5 hours post injection. FINDINGS: Intense abnormal uptake involving the right foot. Abnormal uptake involving the distal phalanx of the first digit right foot and second digit left foot . Mild intensity uptake involving the posterior left mid rib cage nonspecific. Mild to moderate intensity uptake overlying the soft tissues of the left pelvis which may be contamin ation. Suspect arthropathy of the bilateral hips. Intense abnormal uptake left iliac bone compatible with metastases. IMPRESSION: 1. Intense abnormal uptake involving the right foot is most likely on the basis of Charcot joint prev iously described. 2. Suspect abnormal uptake overlying the left lower pelvis is artifactual. X-ray correlation could be obtained. 3. Faint abnormal uptake involving the posterior left rib cage suspicious for metastasis when correla malina with recent CT scan 4. Faint abnormal uptake involving the thoracic and upper lumbar spine. Findings seen by recent CT de monstrate numerous punctate scattered areas of sclerosis. Suspicion for early metastases. Intense abnormal uptake right iliac bone compatible with areas of sclerosis seen by previous CT scan. Findings compatible with metastases. 5. Upon review of prior CT scan of 03/03/2023 and 02/20/2023 suspect widespread small areas of osseous metastases.
[2023-03-23 17:10] LABS: Glucose,Whole Blood 92 mg/dL (70-110)
--- NOTE | 2023-03-23 17:29 | P.PN ---
Subjective Progress Note Date: 03/23/23 Aba dunn is 67 year old male patient who presented to the ER with concerns of generalized weakness. Patient had a recent lap sandra at [facility]. Patient reports that he has not been on his diabetic medication following lap sandra when EMS arrived they found elevated blood sugars greater than 600. Patient has been maintained on IV antibiotic vancomycin for right foot diabetic ulcers. Patient denies fevers at home. Additional medical history includes CAD, chest pain, CVA, diabetes mellitus, GI bleed, hyperlipidemia, hypertension, [place], prostate disorder, renal disease, sleep apnea, non-Hodgkin's lymphoma, heart cath with stent. Chest x-ray completed showing slightly prominent interstitial markings. Hip x-ray completed showing no acute fracture or dislocation. White blood cell 9.0 initial blood sugars greater than 600 patient was started on insulin drip. UA negative for ketones. Patient was resumed back on vancomycin. Troponin elevated 0.2-3 will order serial troponins and cardiac monitoring cardiology service is consulted. Vascular surgery and infectious disease service is consulted blood culture ordered. Repeat labs ordered. At this time patient is resting comfortably bed patient reports improvement with symptoms. Patient denies chest pain or shortness of breath. Patient denies nausea vomiting or diarrhea. Patient denies any urinary burning or frequency On 03/21/2023 patient was seen and examined on the medical floor he is alert and oriented 3, he is complaining of severe back pain that he rates at 10 out of 10, he states that he fell yesterday and hit his back, x-ray of the lumbar spine was done yesterday in the emergency room, and did not reveal any fracture, however it revealed diffuse sclerotic bone lesions, suggestive of metastatic disease, at this time will check PSA and consult oncology in that regard. Patient is also having significant drop in hemoglobin since yesterday, will check stools for occult blood, will check iron panel vitamin B12 and folate level, will follow closely. On 03/22/2023 patient is alert and oriented 3 patient is currently resting in bed. Oncology services are following bone scan ordered along with multiple lab values. Patient remains on IV daptomycin and Maxipime. Current vital signs temp 98.8, heart rate 77, respiratory rate 17, blood pressure 127/67 pulse with a pulse ox of 99% on room air On 03/23/2023 patient was seen and examined in the ICU, he is alert and more oriented today, yesterday he had severe confusion and mental status changes, computed tomography scan of the brain was done and there was no evidence of intracranial bleeding, ammonia level was normal, his mental status changes could be related to pain medications. Patient was transferred to ICU and monitored closely, arterial blood gas was done, critical care consult was requested. Today patient is feeling better he is more alert and oriented, he was cleared for transfer back to the floor. He underwent bone scan to assess possible metastatic bone disease, oncology are following Patient remains on IV cefepime and IV daptomycin, infectious disease following. Objective - Vital Signs Vital signs: Vital Signs Temp 98.4 F 03/23/23 11:00 Pulse 69 03/23/23 13:00 Resp 14 03/23/23 12:30 BP 102/59 03/23/23 13:30 Pulse Ox 97 03/23/23 12:30 FiO2 Intake & Output 03/22/23 03/23/23 03/23/23 18:59 06:59 18:59 Intake Total 800 350 Output Total 550 650 600 Balance -550 150 -250 Weight 76.8 kg 76.8 kg Intake: IV 380 350 0.9 180 Cefepime 2 gm In Sodium 100 Chloride 0.9% 100 ml @ 25 mls/hr IVPB Q8HR [facility] Rx# :[id number] Sodium Chloride 0.9% 1, 100 350 000 ml @ 50 mls/hr IV . Q20H [facility] Rx#:[id number] Oral 420 Output: Urine 550 650 600 Other: Voiding Method External Catheter External Catheter External Catheter # Voids 1 0 - Exam In general patient is alert and oriented x 3 in no distress HEENT head normocephalic and atraumatic Neck is supple no JVD no goiter no lymphadenopathy no carotid bruit Chest examination is clear to auscultation no crackles no wheezing Cardiac exam reveals regular heart sounds S1 and S2 no gallops no murmurs Abdomen is soft nontender no organomegaly with normal bowel sounds Extremity exam reveals minimal swelling, with bilateral wounds involving the feet and the toes Neurological examination reveals no gross focal deficits - Labs CBC & Chem 7: 03/23/23 03:41 03/23/23 03:41 Labs: Abnormal Lab Results - Last 24 Hours (Table) 03/22/23 03/22/23 03/23/23 Range/Units 18:43 20:31 03:41 RBC (4.30-5.90) m/uL Hgb (13.0-17.5) gm/dL Hct (39.0-53.0) % Lymphocytes # (1.0-4.8) k/uL D-Dimer 1.75 H (<0.60) mg/L FEU ABG pH 7.48 H (7.35-7.45) ABG pO2 55 L* (83-108) mmHg ABG HCO3 31 H (21-25) mmol/L ABG Total CO2 32 H (19-24) mmol/L ABG O2 Saturation 91.4 L (94-97) % Glucose 60 L (74-99) mg/dL POC Glucose (mg/dL) (70-110) mg/dL Calcium 7.7 L (8.4-10.2) mg/dL Alkaline Phosphatase 134 H (38-126) U/L Total Protein 5.4 L (6.3-8.2) g/dL Albumin 2.5 L (3.5-5.0) g/dL Procalcitonin (0.02-0.09) ng/mL 03/23/23 03/23/23 03/23/23 Range/Units 03:41 03:41 05:40 RBC 2.96 L (4.30-5.90) m/uL Hgb 8.4 L (13.0-17.5) gm/dL Hct 26.0 L (39.0-53.0) % Lymphocytes # 0.4 L (1.0-4.8) k/uL D-Dimer (<0.60) mg/L FEU ABG pH (7.35-7.45) ABG pO2 (83-108) mmHg ABG HCO3 (21-25) mmol/L ABG Total CO2 (19-24) mmol/L ABG O2 Saturation (94-97) % Glucose (74-99) mg/dL POC Glucose (mg/dL) 69 L (70-110) mg/dL Calcium (8.4-10.2) mg/dL Alkaline Phosphatase (38-126) U/L Total Protein (6.3-8.2) g/dL Albumin (3.5-5.0) g/dL Procalcitonin 0.32 H (0.02-0.09) ng/mL Microbiology - Last 24 Hours (Table) 03/20/23 00:15 Blood Culture - Preliminary Blood 03/20/23 00:25 Blood Culture - Preliminary Blood Assessment and Plan Assessment: 1. Uncontrolled diabetes mellitus with hyperglycemia. 2. Recent laparoscopic cholecystectomy Analy Jeffery 3. Diabetic foot ulcers maintained on IV antibiotics 4. Generalized weakness 5. Elevated troponin 6. underlying history of [id number] diabetes mellitus 7. Underlying history of essential hypertension 8. History of neuropathy 9. History of hyperlipidemia 10. History of peripheral vascular disease 11. History of coronary artery disease with history of myocardial infarction 12. History of GI bleeding 13. History of CVA 14. 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 GI prophylaxis Protonix Patient started on insulin drip Cardiology service is consulted for elevated troponin, repeat troponin ordered Infectious disease and vascular surgery consulted Patient restarted back on a vancomycin Blood cultures ordered
--- NOTE | 2023-03-23 18:49 | P.PN ---
Subjective Progress Note Date: 03/22/23 Principal diagnosis: Diabetic foot ulcer and osteomyelitis Patient is a 67-year male with a past medical history significant for diabetes mellitus patient did have a Charcot deformity of the right foot chronic nonhealing wound to the right foot plantar aspect with underlying osteomyelitis and also with the left big toe nonhealing wound presented to hospital with weakn ess and multiple falls and worsening pain to the lower back area. On today's evaluation that is 03/22/2023, the patient denies any fever or any chills, the patient is breathing comfortably on room air without the need for supplemental oxygen, patient denies chest pain shortness of breath and no sig nificant cough or sputum production, patient denies Abdominal pain, no nausea/vomiting and denies having any diarrhea, the patient complaining of pain to the lower back area. Patient did have white count 7.42, creatinine 0.93 local culture with Martine albicans, CT of the lumbar spine concerning for possible metastatic disease Objective - Vital Signs Vital signs: Vital Signs Temp 98.1 F 03/22/23 04:00 Pulse 68 03/22/23 04:00 Resp 17 03/22/23 04:00 BP 118/69 03/22/23 04:00 Pulse Ox 98 03/22/23 04:00 FiO2 Intake & Output 03/21/23 03/22/23 03/22/23 18:59 06:59 18:59 Intake Total 300 Output Total 450 300 Balance -450 0 Weight 81.647 kg 81 kg Intake: Intake, IV Titration 100 Amount Cefepime 2 gm In Sodium 100 Chloride 0.9% 100 ml @ 25 mls/hr IVPB Q8HR [facility] Rx# :[id number] Oral 200 Output: Urine 450 300 Other: Voiding Method External Catheter External Catheter - Exam GENERAL DESCRIPTION: An elderly male lying in bed in no distress RESPIRATORY SYSTEM: Unlabored breathing , decreased breath sounds at bases HEART: S1 S2 regular rate and rhythm , ABDOMEN: Soft , no tenderness EXTREMITIES: Bilateral feet wounds are currently dressed no drainage on the dressing - Labs CBC & Chem 7: 03/23/23 03:41 03/23/23 03:41 Labs: Abnormal Lab Results - Last 24 Hours (Table) 03/21/23 03/21/23 03/21/23 Range/Units 08:28 08:28 08:28 RBC 3.05 L (4.30-5.90) m/uL Hgb 8.6 L D (13.0-17.5) gm/dL Hct 26.7 L (39.0-53.0) % Lymphocytes # 0.4 L (1.0-4.8) k/uL ESR 88 H (0-20) mm/Hr Sodium 135 L (137-145) mmol/L Potassium 3.4 L (3.5-5.1) mmol/L Glucose 156 H (74-99) mg/dL POC Glucose (mg/dL) (70-110) mg/dL Hemoglobin A1c 10.4 H (<=6.0) % Calcium 8.2 L (8.4-10.2) mg/dL Iron (65-175) UG/DL TIBC (228-460) UG/DL % Saturation (15.00-50.00) Transferrin (204.0-354.0) mg/dL AST 132 H (17-59) U/L Alkaline Phosphatase 191 H (38-126) U/L Creatine Kinase 867 H (55-170) U/L C-Reactive Protein 20.5 H (<1.0) mg/dL Total Protein 5.6 L (6.3-8.2) g/dL Albumin 2.5 L (3.5-5.0) g/dL Vitamin B12 (200.0-944.0) pg/mL 03/21/23 03/21/23 03/21/23 Range/Units 08:28 12:17 17:19 RBC (4.30-5.90) m/uL Hgb (13.0-17.5) gm/dL Hct (39.0-53.0) % Lymphocytes # (1.0-4.8) k/uL ESR (0-20) mm/Hr Sodium (137-145) mmol/L Potassium (3.5-5.1) mmol/L Glucose (74-99) mg/dL POC Glucose (mg/dL) 213 H 203 H (70-110) mg/dL Hemoglobin A1c (<=6.0) % Calcium (8.4-10.2) mg/dL Iron 16 L (65-175) UG/DL TIBC 193 L (228-460) UG/DL % Saturation 8.29 L (15.00-50.00) Transferrin 138.0 L (204.0-354.0) mg/dL AST (17-59) U/L Alkaline Phosphatase (38-126) U/L Creatine Kinase (55-170) U/L C-Reactive Protein (<1.0) mg/dL Total Protein (6.3-8.2) g/dL Albumin (3.5-5.0) g/dL Vitamin B12 1009.0 H (200.0-944.0) pg/mL 03/21/23 03/22/23 03/22/23 Range/Units 20:51 06:28 07:23 RBC (4.30-5.90) m/uL Hgb (13.0-17.5) gm/dL Hct (39.0-53.0) % Lymphocytes # (1.0-4.8) k/uL ESR (0-20) mm/Hr Sodium 136 L (137-145) mmol/L Potassium (3.5-5.1) mmol/L Glucose 104 H (74-99) mg/dL POC Glucose (mg/dL) 186 H 113 H (70-110) mg/dL Hemoglobin A1c (<=6.0) % Calcium 8.1 L (8.4-10.2) mg/dL Iron (65-175) UG/DL TIBC (228-460) UG/DL % Saturation (15.00-50.00) Transferrin (204.0-354.0) mg/dL AST 76 H (17-59) U/L Alkaline Phosphatase 172 H (38-126) U/L Creatine Kinase (55-170) U/L C-Reactive Protein (<1.0) mg/dL Total Protein 6.0 L (6.3-8.2) g/dL Albumin 2.8 L (3.5-5.0) g/dL Vitamin B12 (200.0-944.0) pg/mL Microbiology - Last 24 Hours (Table) 03/20/23 00:15 Blood Culture - Preliminary Blood 03/20/23 00:25 Blood Culture - Preliminary Blood 03/20/23 12:47 Gram Stain - Preliminary Foot - Right Wound Culture - Preliminary Martine albicans 03/20/23 12:47 Gram Stain - Preliminary Toe - Left First Wound Culture - Preliminary Martine albicans Assessment and Plan (1) Diabetic foot ulcer Current Visit: Yes Status: Acute Priority: High Code(s): E11.621 - TYPE 2 DIABETES MELLITUS WITH FOOT ULCER; L97.509 - NON-PRESSURE CHRONIC ULCER OTH PRT UNSP FOOT W UNSP SEVERITY SNOMED Code(s): 053069576 (2) Foot osteomyelitis, right Current Visit: No Status: Acute Code(s): M86.9 - OSTEOMYELITIS, UNSPECIFIED SNOMED Code(s): 2296913453118080 Plan: 1patient presented to hospital with weakness multiple falls has been complaining of excruciating pain to the lower back area after a fall patient also have a nonhealing wound on the plantar aspect of the right foot as well as the left big toe with recent culture positive for MRSA Enterococcus faecalis and Alcaligenes faecalis for the patient was receiving antibiotic in the outpatient setting, patient did have persistent nonhealing of the wound which is probing down to the bone on the right foot plantar aspect concerning for acute on chronic osteomyelitis 2-local cultures have been obtained from both wounds and currently growing martine most likely colonizer 3-patient to continue cefepime daptomycin and Flagyl local wound care with Aquacel silver dressing. Dictation was produced using [employer] dictation software. please excuse any grammatical, word or spelling errors. Time with Patient: Less than 30
--- NOTE | 2023-03-23 18:50 | P.PN ---
Subjective Progress Note Date: 03/23/23 Principal diagnosis: Diabetic foot ulcer and osteomyelitis Patient is a 67-year male with a past medical history significant for diabetes mellitus patient did have a Charcot deformity of the right foot chronic nonhealing wound to the right foot plantar aspect with underlying osteomyelitis and also with the left big toe nonhealing wound presented to hospital with weakn ess and multiple falls and worsening pain to the lower back area. On today's evaluation that is 03/23/2023, the patient remains to be afebrile, the patient is breathing comfortably on room air , the patient denies any chest pain, no significant cough or sputum production, patient denies nausea/vomiting /diarrhea and no abdominal pain, the patient has been complaining of pain to the lower back area and did have some confusion. Patient did have white count 6.9, creatinine 0.89 local culture with Martine albicans, CT of the lumbar spine concerning for possible metastatic disease Objective - Vital Signs Vital signs: Vital Signs Temp 98.4 F 03/23/23 11:00 Pulse 74 03/23/23 11:30 Resp 6 L 03/23/23 11:30 BP 150/82 03/23/23 11:30 Pulse Ox 94 L 03/23/23 11:30 FiO2 Intake & Output 03/22/23 03/23/23 03/23/23 18:59 06:59 18:59 Intake Total 800 250 Output Total 550 650 350 Balance -550 150 -100 Weight 76.8 kg 76.8 kg Intake: IV 380 250 0.9 180 Cefepime 2 gm In Sodium 100 Chloride 0.9% 100 ml @ 25 mls/hr IVPB Q8HR [facility] Rx# :[id number] Sodium Chloride 0.9% 1, 100 250 000 ml @ 50 mls/hr IV . Q20H [facility] Rx#:[id number] Oral 420 Output: Urine 550 650 350 Other: Voiding Method External Catheter External Catheter External Catheter # Voids 1 0 - Exam GENERAL DESCRIPTION: An elderly male lying in bed in no distress RESPIRATORY SYSTEM: Unlabored breathing , decreased breath sounds at bases HEART: S1 S2 regular rate and rhythm , ABDOMEN: Soft , no tenderness EXTREMITIES: Bilateral feet wounds are currently dressed no drainage on the dressing - Labs CBC & Chem 7: 03/23/23 03:41 03/23/23 03:41 Labs: Abnormal Lab Results - Last 24 Hours (Table) 03/22/23 03/22/23 03/22/23 Range/Units 06:28 18:43 20:31 RBC 3.30 L (4.40-5.60) X 10*6/uL Hgb 9.0 L (13.0-17.0) g/dL Hct 29.9 L (39.6-50.0) % MCHC 30.1 L (32.0-37.0) g/dL RDW 14.9 H (11.5-14.5) % Lymphocytes # 0.48 L (0.90-5.00) X 10*3/uL ESR 118 H (0-20) mm/Hr Retic Count 2.52 H (0.10-1.80) % D-Dimer 1.75 H (<0.60) mg/L FEU ABG pH 7.48 H (7.35-7.45) ABG pO2 55 L* (83-108) mmHg ABG HCO3 31 H (21-25) mmol/L ABG Total CO2 32 H (19-24) mmol/L ABG O2 Saturation 91.4 L (94-97) % Glucose (74-99) mg/dL POC Glucose (mg/dL) (70-110) mg/dL Calcium (8.4-10.2) mg/dL Alkaline Phosphatase (38-126) U/L Total Protein (6.3-8.2) g/dL Albumin (3.5-5.0) g/dL Procalcitonin (0.02-0.09) ng/mL 03/23/23 03/23/23 03/23/23 Range/Units 03:41 03:41 03:41 RBC 2.96 L (4.40-5.60) X 10*6/uL Hgb 8.4 L (13.0-17.0) g/dL Hct 26.0 L (39.6-50.0) % MCHC (32.0-37.0) g/dL RDW (11.5-14.5) % Lymphocytes # 0.4 L (0.90-5.00) X 10*3/uL ESR (0-20) mm/Hr Retic Count (0.10-1.80) % D-Dimer (<0.60) mg/L FEU ABG pH (7.35-7.45) ABG pO2 (83-108) mmHg ABG HCO3 (21-25) mmol/L ABG Total CO2 (19-24) mmol/L ABG O2 Saturation (94-97) % Glucose 60 L (74-99) mg/dL POC Glucose (mg/dL) (70-110) mg/dL Calcium 7.7 L (8.4-10.2) mg/dL Alkaline Phosphatase 134 H (38-126) U/L Total Protein 5.4 L (6.3-8.2) g/dL Albumin 2.5 L (3.5-5.0) g/dL Procalcitonin 0.32 H (0.02-0.09) ng/mL 03/23/23 Range/Units 05:40 RBC (4.40-5.60) X 10*6/uL Hgb (13.0-17.0) g/dL Hct (39.6-50.0) % MCHC (32.0-37.0) g/dL RDW (11.5-14.5) % Lymphocytes # (0.90-5.00) X 10*3/uL ESR (0-20) mm/Hr Retic Count (0.10-1.80) % D-Dimer (<0.60) mg/L FEU ABG pH (7.35-7.45) ABG pO2 (83-108) mmHg ABG HCO3 (21-25) mmol/L ABG Total CO2 (19-24) mmol/L ABG O2 Saturation (94-97) % Glucose (74-99) mg/dL POC Glucose (mg/dL) 69 L (70-110) mg/dL Calcium (8.4-10.2) mg/dL Alkaline Phosphatase (38-126) U/L Total Protein (6.3-8.2) g/dL Albumin (3.5-5.0) g/dL Procalcitonin (0.02-0.09) ng/mL Microbiology - Last 24 Hours (Table) 03/20/23 00:15 Blood Culture - Preliminary Blood 03/20/23 00:25 Blood Culture - Preliminary Blood 03/20/23 12:47 Anaerobic Culture - Preliminary Foot - Right 03/20/23 12:47 Anaerobic Culture - Preliminary Toe - Left First 03/20/23 12:47 Gram Stain - Final Toe - Left First Wound Culture - Final Martine albicans 03/20/23 12:47 Gram Stain - Final Foot - Right Wound Culture - Final Martine albicans Assessment and Plan (1) Diabetic foot ulcer Current Visit: Yes Status: Acute Priority: High Code(s): E11.621 - TYPE 2 DIABETES MELLITUS WITH FOOT ULCER; L97.509 - NON-PRESSURE CHRONIC ULCER OTH PRT UNSP FOOT W UNSP SEVERITY SNOMED Code(s): 782206657 (2) Foot osteomyelitis, right Current Visit: No Status: Acute Code(s): M86.9 - OSTEOMYELITIS, UNSPECIFIED SNOMED Code(s): 8709826970955512 Plan: 1patient presented to hospital with weakness multiple falls has been complaining of excruciating pain to the lower back area after a fall patient also have a nonhealing wound on the plantar aspect of the right foot as well as the left big toe with recent culture positive for MRSA Enterococcus faecalis and Alcaligenes faecalis for the patient was receiving antibiotic in the outpatient setting, patient did have persistent nonhealing of the wound which is probing down to the bone on the right foot plantar aspect concerning for acute on chronic osteomyelitis 2-local cultures have been obtained from both wounds and currently growing Martine as the cause is more likely colonizer 3-patient to continue cefepime daptomycin and Flagyl local wound care with Aquacel silver dressing. Overall prognosis remains to be guarded keeping in mind his metastatic prostate cancer that may be causing most of his symptoms currently Dictation was produced using [employer] software. please excuse any grammatical, word or spelling errors. Time with Patient: Less than 30
[2023-03-23 20:30] LABS: Glucose,Whole Blood 122 mg/dL (70-110)
--- NOTE | 2023-03-24 00:08 | CT ---
EXAM: CT Head Without Intravenous Contrast CLINICAL HISTORY: ITS.REASON CT Reason: pt fall TECHNIQUE: Axial computed tomography images of the head/brain without intravenous contrast. CTDI is 45.2 mGy and DLP is 1182.5 mGy-cm. This CT exam was performed using one or more of the following dose reduction techniques: automated exposure control, adjustment of the mA and/or kV according to patient size, and/or use of iterative reconstruction technique. COMPARISON: No relevant prior studies available. FINDINGS: No acute intracranial hemorrhage. No midline shift or mass effect. The territorial nuñez-white matter differentiation is maintained throughout. Age-related cerebral volume loss. Periventricular and subcortical white matter hypoattenuation, consistent with chronic microangiopathy. The visualized orbits appear grossly unremarkable. The calvarium is intact. The visualized paranasal sinuses and mastoid air cells are grossly clear. IMPRESSION: No acute intracranial hemorrhage, midline shift, or mass effect. EXAM: CT Cervical Spine Without Intravenous Contrast CLINICAL HISTORY: ITS.REASON CT Reason: pt fall TECHNIQUE: Axial computed tomography images of the cervical spine without intravenous contrast. CTDI is 11.3 mGy and DLP is 336.3 mGy-cm. This CT exam was performed using one or more of the following dose reduction techniques: automated exposure control, adjustment of the mA and/or kV according to patient size, and/or use of iterative reconstruction technique. COMPARISON: No relevant prior studies available. FINDINGS: The vertebral body heights are maintained. The craniocervical junction is intact. The atlanto-dens interval is maintained. The dens is intact. There is no spondylolisthesis. Multilevel cervical spondylosis and degenerative disc disease. Straightening of the cervical lordosis. The unenhanced neck soft tissues are grossly unremarkable. The visualized lung apices are grossly clear. IMPRESSION: No acute fracture or subluxation of the cervical spine.
[2023-03-24] MEDS: CEFEPIME 2 GM in SODIUM CHLORIDE 0.9% 100 ML IVPB SCH ×3 (01:30→16:53)
[2023-03-24] MEDS: HEPARIN SODIUM,PORCINE 5,000 UNIT/ML 1 ML VIAL SQ SCH ×3 (01:33→22:22)
[2023-03-24] MEDS: oxyCODONE-APAP 10-325MG 1 EACH TAB PO PRN ×2 (01:35→10:03)
[2023-03-24] MEDS: FAMOTIDINE 20 MG TAB PO SCH ×3 (01:35→22:22)
[2023-03-24] MEDS: POTASSIUM CHLORIDE ER 20 MEQ TAB.ER PO SCH ×3 (01:35→22:22)
[2023-03-24] MEDS: metroNIDAZOLE 500 MG TAB PO SCH ×4 (01:35→22:22)
[2023-03-24] MEDS: GABAPENTIN 300 MG CAP PO SCH ×4 (01:37→22:22)
[2023-03-24] MEDS: NYSTATIN 100,000 UNIT/GM POWD 15 GM TOPICAL SCH ×3 (01:38→22:23)
--- NOTE | 2023-03-24 01:49 | PN ---
PROGRESS NOTE HISTORY: A 67-year-old patient who has been admitted to ICU with history of coronary artery disease, status post prior bypass surgery, hypertension, dyslipidemia, and chronic left foot infection and metastatic prostate cancer, had elevated troponins for which we were initially consulted. His predominant symptom is in the form of generalized weakness, fatigue and tiredness. He is currently being evaluated for metastatic prostate CA. He appears confused. PHYSICAL EXAMINATION: VITAL SIGNS: On exam, heart rate is 69 beats per minute, blood pressure is 106/72, respiratory rate is 18, O2 saturation is 97%. CHEST: Reveals diminished air entry at the bases. HEART: Reveals first and second heart sounds. No gallop. LABORATORY DATA: Labs show that the hemoglobin is 8.4, platelet count is 229, potassium is 3.5, creatinine is 0.89. MEDICATIONS: The patient is currently on aspirin, Coreg, Lasix, Zestril. ASSESSMENT: Metastatic prostate cancer, nonhealing ulcers, coronary artery disease status post coronary artery bypass grafting. PLAN: Continue current medications. The patient is having intermittent episodes of confusion, could be related to the metastatic disease. Management per primary. MMODL / IJN: [id number] /
[2023-03-24] MEDS: SODIUM CHLORIDE 0.9% 1,000 ML IV SCH ×2 (01:59→22:23)
--- NOTE | 2023-03-24 03:49 | PN ---
PROGRESS NOTE This is a 67-year-old gentleman known to us from the wound clinic. The patient has history of diabetes. The patient also has a Charcot foot with wound on his plantar aspect of the right foot. He had been following at the wound clinic for local wound care. The patient is admitted with history of weakness and history of fall. The patient also has a history of CA of prostate. The patient is scheduled to have a bone scan. We will continue with local wound care. The patient is under care of Infectious Disease. Change the dressing every 48 hours. Follow with you. MMODL / IJN: [id number] /
[2023-03-24 07:05] LABS: Glucose,Whole Blood 129 mg/dL (70-110)
[2023-03-24] MEDS: INSULIN ASPART (NovoLOG) 100 UNIT/ML VIAL SQ SCH ×4 (07:16→22:17)
[2023-03-24 08:44] LABS: ALT 19 U/L (10-49); AST 32 U/L (14-35); Albumin 2.6 g/dL (3.8-4.9); Albumin/Globulin Ratio 0.96 Ratio (1.60-3.17); Alkaline Phosphatase 141 U/L (41-126); BUN/Creat Ratio 15.44 Ratio (12.00-20.00); Blood Urea Nitrogen 13.9 mg/dL (9.0-27.0); Calcium 7.8 mg/dL (8.7-10.3); Carbon Dioxide 24.9 mmol/L (21.6-31.8); Chloride 103 mmol/L (96-109); Globulin 2.7 g/dL (1.6-3.3); Glucose 112 mg/dL (70-110); Potassium 4.4 mmol/L (3.5-5.5); Sodium 137 mmol/L (135-145); Total Bilirubin 0.4 mg/dL (0.3-1.2); Total Protein 5.3 g/dL (6.2-8.2)
[2023-03-24 08:48] LABS: Basophils # (A) 0.04 X 10*3/uL (0.00-0.10); Basophils % (A) 0.5 %; Eosinophils % (A) 1.3 %; HCT 26.4 % (39.6-50.0); HGB 8.1 g/dL (13.0-17.0); Lymphocytes # (A) 0.56 X 10*3/uL (0.90-5.00); Lymphocytes % (A) 7.5 %; MCH 26.9 pg (27.0-32.0); MCHC 30.7 g/dL (32.0-37.0); MCV 87.7 FL (80.0-97.0); Mean Platelet Volume 10.6 FL (9.5-12.2); Monocytes # (A) 0.49 X 10*3/uL (0.20-1.00); Monocytes % (A) 6.6 %; NRBC Per 100 WBC 0 X 10*3/uL (0.00-0.01); Neutrophils # (A) 6.18 X 10*3/uL (1.80-7.70); Neutrophils % (A) 83.4 %; Platelet Count 211 X 10*3/uL (140-440); RBC 3.01 X 10*6/uL (4.40-5.60); RDW 14.9 % (11.5-14.5); WBC 7.42 X 10*3/uL (4.50-10.00)
--- NOTE | 2023-03-24 09:17 | P.PN ---
Subjective Progress Note Date: 03/24/23 Aba dunn is 67 year old male patient who presented to the ER with concerns of generalized weakness. Patient had a recent lap sandra at [facility]. Patient reports that he has not been on his diabetic medication following lap sandra when EMS arrived they found elevated blood sugars greater than 600. Patient has been maintained on IV antibiotic vancomycin for right foot diabetic ulcers. Patient denies fevers at home. Additional medical history includes CAD, chest pain, CVA, diabetes mellitus, GI bleed, hyperlipidemia, hypertension, LA, prostate disorder, renal disease, sleep apnea, non-Hodgkin's lymphoma, heart cath with stent. Chest x-ray completed showing slightly prominent interstitial markings. Hip x-ray completed showing no acute fracture or dislocation. White blood cell 9.0 initial blood sugars greater than 600 patient was started on insulin drip. UA negative for ketones. Patient was resumed back on vancomycin. Troponin elevated 0.2-3 will order serial troponins and cardiac monitoring cardiology service is consulted. Vascular surgery and infectious disease service is consulted blood culture ordered. Repeat labs ordered. At this time patient is resting comfortably bed patient reports improvement with symptoms. Patient denies chest pain or shortness of breath. Patient denies nausea vomiting or diarrhea. Patient denies any urinary burning or frequency On 03/21/2023 patient was seen and examined on the medical floor he is alert and oriented 3, he is complaining of severe back pain that he rates at 10 out of 10, he states that he fell yesterday and hit his back, x-ray of the lumbar spine was done yesterday in the emergency room, and did not reveal any fracture, however it revealed diffuse sclerotic bone lesions, suggestive of metastatic disease, at this time will check PSA and consult oncology in that regard. Patient is also having significant drop in hemoglobin since yesterday, will check stools for occult blood, will check iron panel vitamin B12 and folate level, will follow closely. On 03/22/2023 patient is alert and oriented 3 patient is currently resting in bed. Oncology services are following bone scan ordered along with multiple lab values. Patient remains on IV daptomycin and Maxipime. Current vital signs temp 98.8, heart rate 77, respiratory rate 17, blood pressure 127/67 pulse with a pulse ox of 99% on room air On 03/23/2023 patient was seen and examined in the ICU, he is alert and more oriented today, yesterday he had severe confusion and mental status changes, computed tomography scan of the brain was done and there was no evidence of intracranial bleeding, ammonia level was normal, his mental status changes could be related to pain medications. Patient was transferred to ICU and monitored closely, arterial blood gas was done, critical care consult was requested. Today patient is feeling better he is more alert and oriented, he was cleared for transfer back to the floor. He underwent bone scan to assess possible metastatic bone disease, oncology are following Patient remains on IV cefepime and IV daptomycin, infectious disease following. On 03/24/2023 patient has been transferred to medical floor. Patient is alert. Patient remains on IV antibiotics. Current vital signs temp 97.5, 70, respiratory rate 17, blood pressure 125/66 on room air 99%. Oncology cardiology and critical care service is following. Objective - Vital Signs Vital signs: Vital Signs Temp 97.5 F L 03/24/23 07:39 Pulse 70 03/24/23 07:39 Resp 17 03/24/23 07:39 BP 125/66 03/24/23 07:39 Pulse Ox 99 03/24/23 07:39 FiO2 Intake & Output 03/23/23 03/24/23 03/24/23 18:59 06:59 18:59 Intake Total 350 Output Total 600 500 Balance -250 -500 Weight 81 kg Intake: IV 350 Sodium Chloride 0.9% 1, 350 000 ml @ 50 mls/hr IV . Q20H [facility] TO [facility] Rx#:[id number] Output: Urine 600 500 Other: Voiding Method External Catheter External Catheter # Voids 300 - Exam In general patient is alert and oriented x 3 in no distress HEENT head normocephalic and atraumatic Neck is supple no JVD no goiter no lymphadenopathy no carotid bruit Chest examination is clear to auscultation no crackles no wheezing Cardiac exam reveals regular heart sounds S1 and S2 no gallops no murmurs Abdomen is soft nontender no organomegaly with normal bowel sounds Extremity exam reveals minimal swelling, with bilateral wounds involving the feet and the toes Neurological examination reveals no gross focal deficits - Labs CBC & Chem 7: 03/24/23 06:05 03/24/23 06:05 Labs: Abnormal Lab Results - Last 24 Hours (Table) 03/23/23 03/24/2303/24/23 Range/Units 20:29 06:05 06:05 RBC 3.01 L (4.40-5.60) X 10*6/uL Hgb 8.1 L (13.0-17.0) g/dL Hct 26.4 L (39.6-50.0) % MCH 26.9 L (27.0-32.0) pg MCHC 30.7 L (32.0-37.0) g/dL RDW 14.9 H (11.5-14.5) % Lymphocytes # 0.56 L (0.90-5.00) X 10*3/uL Glucose 112 H (70-110) mg/dL POC Glucose (mg/dL) 122 H (70-110) mg/dL Calcium 7.8 L (8.7-10.3) mg/dL Alkaline Phosphatase 141 H (41-126) U/L Total Protein 5.3 L (6.2-8.2) g/dL Albumin 2.6 L (3.8-4.9) g/dL Albumin/Globulin Ratio 0.96 L (1.60-3.17) Ratio 03/24/23 Range/Units 07:03 RBC (4.40-5.60) X 10*6/uL Hgb (13.0-17.0) g/dL Hct (39.6-50.0) % MCH (27.0-32.0) pg MCHC (32.0-37.0) g/dL RDW (11.5-14.5) % Lymphocytes # (0.90-5.00) X 10*3/uL Glucose (70-110) mg/dL POC Glucose (mg/dL) 129 H (70-110) mg/dL Calcium (8.7-10.3) mg/dL Alkaline Phosphatase (41-126) U/L Total Protein (6.2-8.2) g/dL Albumin (3.8-4.9) g/dL Albumin/Globulin Ratio (1.60-3.17) Ratio Microbiology - Last 24 Hours (Table) 03/20/23 00:15 Blood Culture - Preliminary Blood 03/20/23 00:25 Blood Culture - Preliminary Blood Assessment and Plan Assessment: 1. Uncontrolled diabetes mellitus with hyperglycemia. 2. Recent laparoscopic cholecystectomy Analy Jeffery 3. Diabetic foot ulcers maintained on IV antibiotics 4. Generalized weakness 5. Elevated troponin 6. underlying history of [id number] diabetes mellitus 7. Underlying history of essential hypertension 8. History of neuropathy 9. History of hyperlipidemia 10. History of peripheral vascular disease 11. History of coronary artery disease with history of myocardial infarction 12. History of GI bleeding 13. History of CVA 14. 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 GI prophylaxis Protonix Patient started on insulin drip Cardiology service is consulted for elevated troponin, repeat troponin ordered Infectious disease and vascular surgery consulted Patient currently on daptomycin and Flagyl Blood cultures ordered
[2023-03-24] MEDS: ASPIRIN 81 MG PO SCH (10:02)
[2023-03-24] MEDS: glipiZIDE 10 MG TAB PO SCH ×2 (10:03→16:53)
[2023-03-24] MEDS: carvediloL 3.125 MG TAB PO SCH ×2 (10:03→16:53)
[2023-03-24] MEDS: CLOPIDOGREL 75 MG TAB PO SCH (10:04)
[2023-03-24] MEDS: MAGNESIUM OXIDE 400 MG TAB PO SCH (10:04)
[2023-03-24] MEDS: DAPTOmycin 500 MG in SODIUM CHLORIDE 0.9% 50 ML IVPB SCH (10:14)
--- NOTE | 2023-03-24 12:23 | P.PN ---
Subjective Progress Note Date: 03/24/23 I am seeing this patient in new consultation today 03/23/2023 in the intensive care unit after he was transferred yesterday evening for hypotension and suspected sepsis. 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 Patient also recently underwent cholecystectomy for acute ascending cholangitis earlier this month at an outside facility. Following the procedure there were reportedly some diabetic medication changes. Patient presented to the emergency room back on 03/20/2023 chiefly with the complaints of generalized weakness and high blood sugars. He also may have fell in the bathroom hitting his back, he was complaining of severe lower back pain on arrival. Currently, the patient is lethargic and confused, and most of this information is supplemented from the chart. He was receiving IV vancomycin outpatient for ongoing osteomyelitis of the right foot. He does have chronic wounds on bilateral feet. He is currently receiving IV antibiotics in the form of daptomycin, cefepime, and Flagyl per infectious disease. Patient does have a fluctuant lower back mass. Ultrasound of this area demonstrates a heterogenous indeterminate lesion which could represent hematoma. CT of the lower back demonstrated sclerotic lesions throughout the visualized osseous structures suggesting osseous metastatic disease. There was mild multilevel degenerative disc disease. No vertebral compression collapse or acute fracture seen. No large focal disc herniation or landen canal compromise seen. Patient does have active prostate cancer was on Nubeqa outpatient. As far as the patient's blood sugars, they're better controlled, on sliding scale insulin. Most recent BMP from yesterday shows a sodium 136, potassium 3.6, chloride 101, serum bicarb 26, BUN 13, creatinine 0.93, glucose 104. Most recent CBC from yesterday shows a WBC count of 7.4, hemoglobin 9, hematocrit 29.9, platelets 224. Apparently, the patient was hypotensive and confused earlier yesterday after noon, and was transferred to the intensive care unit. He is receiving multiple narcotics for pain management around the clock. Brain CT did not show any acute intracranial process. ABG showed a pO2 of 55, pCO2 41, pH of 7.48. This was done on room air. Patient is currently resting comfortably on 2 L/m nasal cannula. D-dimer was elevated at 1.75, the patient is undergoing chest CTA. Clinical suspicion for pulmonary embolism is low. Troponins were mildly elevated at 0.841. Echocardiogram done this admission showed a mildly impaired left ventricular ejection fraction of 40% and mild-moderate mitral regurgitation. Chest x-ray at that time showed low lung volumes with generalized haziness joselin earance which could represent atelectasis versus pulmonary edema. Blood pressure is currently normotensive, not requiring any pressors. I do not see any record recorded hypotensive blood pressures. Heart rhythm appears normal sinus. Currently afebrile. Blood and wound cultures are pending. Overall prognosis is guarded, will continue to monitor in the intensive care unit. The patient is seen today 03/24/2023 in follow-up on the regular medical floor. He is currently resting in bed. Awake and alert in no acute distress. He is maintaining O2 saturations in the 90s on room air. He has normal saline at 50 MLS per hour. He is continued on cefepime and daptomycin. He has a dressing to the right foot ulceration. CT angiogram ruled out pulmonary embolism. There is findings consistent with bronchitis with pneumonitis and lower lobes and a tiny consolidation in the right lung base. Multiple sclerotic lesions demonstrated in the thoracic spine concerning for metastatic disease. Bone scan reveals intense abnormal uptake involving the right foot most likely on the basis of Charcot joint. Suspect abnormal uptake overlying the left lower pelvis is artifactual. Faint abnormal uptake involving the posterior left rib cage suspicious for metastasis. Faint abnormal uptake in following the thoracic and upper lumbar spine. Suspicion for early metastasis with intense abnormal uptake in the right iliac bone. Suspect widespread small areas of osseous metastasis. The patient had sustained a fall last evening and a computed tomography scan of the brain and C-spine revealed no acute fracture of subluxation of the cervical spine. No intracranial hemorrhage. No midline shift or mass effect. Right foot wound cultures positive for Martine. Left first toe positive for Martine. White count 7.4. Hemoglobin 8.1. Platelets 211. Sodium 137. Potassium 4.4. Bicarb 25. UN 14. Creatinine 0.9. Glucose 112. AST 32. ALT 14. Alk phos 141. He is continued on daptomycin, Flagyl and cefepime. Objective - Vital Signs Vital signs: Vital Signs Temp 97.5 F L 03/24/23 07:39 Pulse 74 03/24/23 10:02 Resp 17 03/24/23 07:39 BP 128/67 03/24/23 10:02 Pulse Ox 99 03/24/23 07:39 FiO2 Intake & Output 03/23/23 03/24/23 03/24/23 18:59 06:59 18:59 Intake Total 350 Output Total 600 500 Balance -250 -500 Weight 81 kg Intake: IV 350 Sodium Chloride 0.9% 1, 350 000 ml @ 50 mls/hr IV . Q20H [facility] Rx#:[id number] Output: Urine 600 500 Other: Voiding Method External Catheter External Catheter # Voids 300 - Exam GENERAL EXAM: Awake, weak 67-year-old male, on room air, comfortable in no apparent distress. HEAD: Normocephalic and atraumatic EYES: Normal reaction of pupils, equal size. NOSE: Clear with pink turbinates. THROAT: No erythema or exudates. NECK: No masses, no JVD. CHEST: No chest wall deformity. LUNGS: Equal air entry with minimal bibasilar inspiratory crackles. No wheezes, rhonchi, dullness. No conversational dyspnea. CVS: S1 and S2 normal with grade 1 systolic murmur, regular rhythm. No extra heart sounds ABDOMEN: No hepatosplenomegaly, active bowel sounds, no guarding or rigidity. SPINE: No scoliosis or deformity. There is a left lateral fluctuant mass SKIN: Right plantar foot wound measuring approximately 5 x 5 cm, with granulation tissue and mild amounts of sloughing. Left great toe wound measuring approximately 2 x 2 centimeters. CENTRAL NERVOUS SYSTEM: Lethargic. Oriented to self only. Able to follow simple commands. No focal deficits, tone is normal in all 4 extremities. EXTREMITIES: There is no peripheral edema, clubbing, or cyanosis. Peripheral pulses are intact. - Labs CBC & Chem 7: 03/24/23 06:05 03/24/23 06:05 Labs: Abnormal Lab Results - Last 24 Hours (Table) 03/22/23 03/23/23 03/24/23 Range/Units 06:28 20:29 06:05 RBC 3.01 L (4.40-5.60) X 10*6/uL Hgb 8.1 L (13.0-17.0) g/dL Hct 26.4 L (39.6-50.0) % MCH 26.9 L (27.0-32.0) pg MCHC 30.7 L (32.0-37.0) g/dL RDW 14.9 H (11.5-14.5) % Lymphocytes # 0.56 L (0.90-5.00) X 10*3/uL Glucose (70-110) mg/dL POC Glucose (mg/dL) 122 H (70-110) mg/dL Calcium (8.7-10.3) mg/dL Alkaline Phosphatase (41-126) U/L Total Protein (6.2-8.2) g/dL Albumin (3.8-4.9) g/dL Albumin/Globulin Ratio (1.60-3.17) Ratio RBC Folate 1,118 H (280 - 791) ng/mL 03/24/23 03/24/23 Range/Units 06:05 07:03 RBC (4.40-5.60) X 10*6/uL Hgb (13.0-17.0) g/dL Hct (39.6-50.0) % MCH (27.0-32.0) pg MCHC (32.0-37.0) g/dL RDW (11.5-14.5) % Lymphocytes # (0.90-5.00) X 10*3/uL Glucose 112 H (70-110) mg/dL POC Glucose (mg/dL) 129 H (70-110) mg/dL Calcium 7.8 L (8.7-10.3) mg/dL Alkaline Phosphatase 141 H (41-126) U/L Total Protein 5.3 L (6.2-8.2) g/dL Albumin 2.6 L (3.8-4.9) g/dL Albumin/Globulin Ratio 0.96 L (1.60-3.17) Ratio RBC Folate (280 - 791) ng/mL Microbiology - Last 24 Hours (Table) 03/20/23 00:15 Blood Culture - Preliminary Blood 03/20/23 00:25 Blood Culture - Preliminary Blood Assessment and Plan Assessment: Acute hypoxemic respiratory failure, possibly related to mild exacerbation of systolic congestive heart failure. Chest x-ray showed low lung volumes with generalized hazy appearance which could represent atelectasis versus pulmonary edema. No focal infiltrates or evidence of pneumonia. Recovered and on room air Hypotension and suspected sepsis, improved, not requiring vasopressors. Recovered Hyperglycemia, improved, on NovoLog sliding scale insulin Altered mental status, possibly related to metabolic encephalopathy, secondary to above. Improved Chronic osteomyelitis of the right foot, receiving IV antibiotics outpatient, currently on antibiotics per infectious disease Bilateral foot wounds Prostate cancer, maintained on Nubeqa outpatient Lower back pain, with suspected metastatic disease. CT of the lower back demonstrated sclerotic lesions throughout the visualized osseous structures suggesting osseous metastatic disease. There was mild multilevel degenerative disc disease. No vertebral compression collapse or acute fracture seen. No large focal disc herniation or landen canal compromise seen. CT angiogram ruled out pulmonary embolism. There is findings consistent with bronchitis with pneumonitis and lower lobes and a tiny consolidation in the right lung base. Multiple sclerotic lesions demonstrated in the thoracic spine concerning for metastatic disease. Bone scan reveals intense abnormal uptake involving the right foot most likely on the basis of Charcot joint. Suspect abnormal uptake overlying the left lower pelvis is artifactual. Faint abnormal uptake involving the posterior left rib cage suspicious for metastasis. Faint abnormal uptake in following the thoracic and upper lumbar spine. Suspicion for early metastasis with intense abnormal uptake in the right iliac bone. Suspect widespread small areas of osseous metastasis. Fall on 03/23/2023. Computed tomography scan of the brain and C-spine ruled out fracture. No acute intracranial abnormality Lumbar mass, ultrasound of this area demonstrates a heterogenous indeterminate lesion which could represent hematoma Uncontrolled [id number] diabetes mellitus, with diabetic foot ulcers Coronary artery disease with previous CABG Hyperlipidemia History of hypertension History of CVA/TIA History of PVD with previous bilateral iliac stents Recent history of cholecystectomy History of previous left nephrectomy related to transitional cell carcinoma Anemia of chronic disease Plan: The patient was seen and evaluated Computed tomography scan of the brain and cervical spine, nuclear bone scan, lab s and medications reviewed Suspect widespread areas of osseous metastasis Medical oncology is on the case Continue cefepime, daptomycin and Flagyl Stable and on room air Continue saline at 50 Mls per hour Heparin for DVT prophylaxis We will continue to follow This patient was seen independently by the nurse practitioner I have personally seen and examined the patient, performed the documentation and the assessment and plan as written. Number of minutes spent on the visit: 24.
[2023-03-24 12:40] LABS: Glucose,Whole Blood 156 mg/dL (70-110)
--- NOTE | 2023-03-24 13:31 | P.CNNES ---
History of Present Illness Consult date: 03/24/23 Requesting physician: Farooq Solis Reason for Consult: Confusion History of Present Illness: I had come to see the patient in ICU yesterday at around 2 PM, but patient was gone for bone scan. Patient is a 67-year-old male with history of diabetes, metastatic prostate cancer, who was brought to the hospital by ambulance on 03/19/2023 for a fall, due to history of stage IV cancer, pitting wounds on the soles of his right foot and recent gallbladder surgery. Patient has been feeling very thirsty, in general ill feeling for about a week prior to arrival. After his gallbladder surgery, he was recommended to hold off on Trulicity. His blood glucose was > 600 at the scene. Patient's later came, who mentions that patient has history of diabetes for a long time. He underwent gallbladder surgery 2 weeks ago. He after surgery, he was told not to take trulicity and as a result his blood sugars have gone high. He has declined since then. He stopped eating and was drinking a lot. On night, he was in the shower, when he fell backwards. He couldn't get up. He was still coherent. His called the ambulance and he was brought to the hospital. Patient's mentation has subsequently declined. Patient's has noticed that his cell phone was wringing, and he was trying to answer on the remote. On Thursday night, when his came, he could not recognize who she is. Later he did recognize that she is his . He has been in and out of alertness and orientation. Sometimes he is "off the wall". She has not noticed any strokelike symptoms like slurred speech, facial droop or any focal weakness. Patient's blood test shows normal WBC hemoglobin 8.4, platelets 229. Chem-20 is normal. Patient's blood glucose on arrival was 696, which came down to 156. CT head revealed no acute intracranial hemorrhage, midline shift or mass effect. CT of the cervical spine showed no acute fracture or subluxation of the cervical spine. Nuclear medicine bone scan revealed intense abnormal uptake involving the right foot is most likely on the basis of Charcot joint. Faint abnormal upt kamran involving the posterior left rib cage suspicious for metastasis when correlated with recent computed tomography scan. Faint abnormal uptake involving the thoracic and upper lumbar spine. Findings seen by recent CT demonstrated numerous punctate scattered areas of sclerosis. Suspicion for ryan y metastasis. Intense abnormal uptake right iliac bone compatible with 80 of sclerosis seen by previous computed tomography scan. Findings compatible with metastasis. Upon review of prior computed tomography scan from 03/03/2023 and demonstrates 11/13/2022, suspect widespread small areas of osseous metastasis. CTA of the chest negative for embolic event. Findings concerning for bronchitis with pneumonitis in the lower lobes with tiny consolidation at the right lung base and small consolidation at the left lung base with tiny pleural effusion. Multiple sclerotic lesions demonstrated in the thoracic spine concerning for metastatic disease. Chest x-ray revealed low lung volumes with a generalized hazy appearance which could represent atelectasis versus pulmonary edema, correlated with serum BNP. 2-D echo revealed impaired left ventricular function, with EF around 40%. Mild to moderate MR. Mild right atrial dilation. Moderately increased left atrial volume. Patient had an EEG performed previously 03/16/2015, which was moderately abnormal in diffuse fashion due to slowing of the background. Patient's mentions that patient has been using cane for 4 months. Patient has history of one nephrectomy 20+ years ago for cancer. Patient has metastatic prostate cancer. Review of Systems Review of system as per patient, although he is not mentally fully clear otherwise. Constitutional: Reports weight loss, Denies chills, Denies fever Eyes: denies blurred vision, denies diplopia, denies pain Ears: deny: decreased hearing, ear discharge Ears, nose, mouth and throat: Reports nasal congestion, Denies headache, Denies sore throat Cardiovascular: Denies chest pain, Denies shortness of breath Respiratory: Denies cough, Denies excessive sputum Gastrointestinal: Denies abdominal pain, Denies diarrhea, Denies nausea, Denies vomiting Genitourinary: Denies dysuria, Denies flank pain, Denies incontinence Musculoskeletal: Denies low back pain, Denies neck pain Integumentary: Reports foot/leg ulcers, Reports sores, Denies pruritus, Denies rash Neurological: Reports as per HPI, Denies aphasia, Denies double vision, Denies seizures Psychiatric: Denies anxiety, Denies depression Endocrine: Reports weight change, Denies fatigue Hematologic/Lymphatic: Denies easy bleeding, Denies easy bruising Past Medical History Past Medical History: Coronary Artery Disease (CAD), Cancer, Chest Pain / Angina, CVA/TIA, Diabetes Mellitus, GI Bleed, Hyperlipidemia, Hypertension, Myocardial Infarction ([place]), Prostate Disorder, Renal Disease, Sleep Apnea/CPAP/BIPAP Additional Past Medical History / Comment(s): SHINGLES 2013 , C-DIFF 2012., HX DIVERTICULOSIS, NEUROPATHY IN HANDS & FEET., LEFT KIDNEY CANCER WITH NEPHRECTOMY URETER & PART OF BLADDER & LYMPH NODES REMOVED., HAS CYST RIGHT KIDNEY, STAGE 3 KIDNEY DISEASE., HX OF SLEEP APNEA (SURGERY)., NON-HODGKINS LYMPHOMA -LAST PET SCAN NEGATIVE., STATES NO RESIDUAL EFFECT FROM HX CVA/TIA., 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 Last Myocardial Infarction Date:: 2012 History of Any Multi-Drug Resistant Organisms: None Reported Date of last positivie culture/infection: 01/22/23 MDRO Source:: Toe Right FIrst Past Surgical History: Bowel Resection, Heart Catheterization, Heart Catheterization With Stent, Hernia Repair, Tonsillectomy Additional Past Surgical History / Comment(s): 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 , CIRCUMCISION cataracts., PIECE OF METAL REMOVED FROM ABD (WAR WOUND) - DEVELOPED SCAR TISSUE & PART OF LARGE INTESTINE REMOVED., ABD HERNIA REPAIR. SX FOR SLEEP APNEA. COLONOSCOPY/POLYPECTOMY., SUDHEER ILIAC VEIN STENTING.,, STATES TOTAL OF 4 CARDIAC STENTS, HEART CATH 12/2018. Past Anesthesia/Blood Transfusion Reactions: No Reported Reaction Date of Last Stent Placement:: 01/2014 Past Psychological History: No Psychological Hx Reported Additional Psychological History / Comment(s): . Smoking Status: Current every day smoker Past Alcohol Use History: Occasional Additional Past Alcohol Use History / Comment(s): QUIT SMOKING (MAR 2019). and restarted in 2019, STARTED SMOKING AT AGE 12. Past Drug Use History: None Reported - Past Family History Mother Additional Family Medical History / Comment(s): from complications from broken hip. Father Family Medical History: Cancer Sister(s) Family Medical History: Diabetes Mellitus, Deep Vein Thrombosis (DVT) Medications and Allergies Home Medications Medication Instructions Recorded Confirmed Type Clopidogrel Bisulfate [Clopidogrel] 75 mg PO DAILY 02/04/14 03/20/23 History Fluticasone Nasal [place] [Flonase 1 spr EA NOSTRIL DAILY PRN 04/29/19 03/20/23 History Nasal [place]] Gabapentin 600 mg PO TID 11/04/22 03/20/23 History hydrOXYzine HCL [Atarax] 50 mg PO HS PRN 11/04/22 03/20/23 History Aspirin 81 mg PO DAILY #30 tab 11/11/22 03/20/23 Rx Atorvastatin [Lipitor] 40 mg PO DAILY #30 tab 11/11/22 03/20/23 Rx Nubeqa 300 Mg Tablet 600 mg PO BID #0 11/11/22 03/20/23 Rx carvediloL [Coreg] 3.125 mg PO BID-W/MEALS 30 Days 11/11/22 03/20/23 Rx #60 tab Calcium Carb-Vit D 500Mg-5Mcg 1 tab PO TID-W/MEALS 11/24/22 03/20/23 History [Oscal 500+D 5 Mcg (200 Iu)] Potassium Chloride [K-Tab ER] 20 meq PO BID #60 tab 11/25/22 03/20/23 Rx Morphine Sulfate ER [Ms Contin] 30 mg PO BID 01/21/23 03/20/23 History oxyCODONE-APAP 10-325MG [Percocet 1 tab PO Q6H PRN 01/21/23 03/20/23 History 10-325 mg] Magnesium Oxide [Mag-Ox] 400 mg PO DAILY tab 01/26/23 03/20/23 Rx DAPTOmycin [Cubicin] 340 mg IV DAILY 03/20/23 03/20/23 History Furosemide [Lasix] 20 mg PO DAILY PRN 03/20/23 03/20/23 History cefTRIAXone [Rocephin] 2 gm IV DAILY 03/20/23 03/20/23 History Allergies Allergy/AdvReac Type Severity Reaction Status Date / Time Penicillins Allergy Unknown Verified 03/20/23 08:07 Childhood Tetanus Vaccines and Toxoid Allergy Unknown Verified 03/20/23 08:07 Childhood metformin AdvReac Nausea & Verified 03/20/23 08:07 Vomiting Physical Examination - Vital Signs Vital Signs: Vital Signs Temp Pulse Pulse Resp BP BP Pulse Ox 03/24/23 10:02 74 128/67 03/24/23 07:39 97.5 F L 70 17 125/66 99 03/24/23 02:00 98.2 F 78 20 116/67 95 03/24/23 00:40 78 20 03/23/23 20:00 98.4 F 71 14 121/66 98 03/23/23 16:24 97.8 F 72 16 131/71 100 03/23/23 13:30 102/59 03/23/23 13:00 69 106/72 03/23/23 12:30 74 14 133/75 97 03/23/23 12:00 73 138/75 96 03/23/23 11:30 74 6 L 150/82 94 L Intake and Output 03/23/23 03/24/23 03/24/23 22:59 06:59 14:59 Output Total 500 Balance -500 Output: Urine 500 Other: Voiding Method External Catheter # Voids 300 Weight 81 kg Patient is an elderly male, who appears somewhat sick, pale. Patient is encephalopathic, restless, but in no respiratory distress. He knows that he is in [facility] in [place]. He could not tell the month alth ough he knows it is 2022. Could not tell name of the president. He has slightly slow mentation and prolonged latency time to answer question. Patient is easily distractible. Speech and language functions are normal. Patient can name and repeat very well. No aphasia or dysarthria. Attention, concentration is slightly impaired and fund of knowledge is also impaired. On cranial nerve examination, pupils are very small, pinpoint, equal, round and reacting to light, visual wang are full on confrontation, with no neglect on double simultaneous stimulation. Extraocular muscles are intact with no nystagmus. Face is symmetric, tongue protrudes to the midline. Palatal elevation and sensation normal, hearing and shoulder shrug normal, facial sensation normal. On muscle strength testing, there is no pronator drift and the strength is normal in arms and legs distally and proximally. Patient has very prominent downward myoclonic jerks of outstretched hands. Deep tendon reflexes are symmetric 1 at the biceps, 0 brachioradialis, 0 at the knees, 0 at the ankles and plantars are flat. Sensory to touch is equal with no neglect on double simultaneous stimulation. Patient's response was inconsistent because of encephalopathy. Cerebellar function showed no ataxia for anaavw-my-peis testing. Patient did not cooperate for cerebellar function testing of the lower limbs. Tone and bulk of muscles normal. Gait deferred.. On general examination, there is no carotid bruit or murmur, S1-S2 audible. Chest is clear on consultation. Abdomen is soft nontender. No organomegaly, kristyn wel sounds present. Patient has multiple foot ulcers. Mild peripheral edema. Results - Laboratory Findings CBC and BMP: 03/25/23 06:08 03/25/23 06:08 Abnormal Lab Findings: Abnormal Labs 03/19/23 03/20/23 03/20/23 23:50 00:20 00:20 RBC 3.45 L Hgb 10.1 L Hct 31.5 L MCH MCHC RDW Neutrophils # 8.2 H Lymphocytes # 0.4 L ESR Retic Count D-Dimer ABG pH ABG pO2 ABG HCO3 ABG Total CO2 ABG O2 Saturation Sodium 134 L Potassium 3.3 L Chloride 93 L Glucose 696 H* POC Glucose (mg/dL) >600 H Hemoglobin A1c Calcium Iron TIBC % Saturation Transferrin Ferritin AST Alkaline Phosphatase 154 H Creatine Kinase Troponin I C-Reactive Protein Total Protein Albumin Albumin/Globulin Ratio Prostate Specific Ag Vitamin B12 RBC Folate Procalcitonin Urine Glucose (UA) Urine Blood Urine Mucus 03/20/23 03/20/23 03/20/23 00:20 02:49 03:15 RBC Hgb Hct MCH MCHC RDW Neutrophils # Lymphocytes # ESR Retic Count D-Dimer ABG pH ABG pO2 ABG HCO3 ABG Total CO2 ABG O2 Saturation Sodium Potassium Chloride Glucose POC Glucose (mg/dL) >600 H Hemoglobin A1c Calcium Iron TIBC % Saturation Transferrin Ferritin AST Alkaline Phosphatase Creatine Kinase Troponin I 0.223 H* C-Reactive Protein Total Protein Albumin Albumin/Globulin Ratio Prostate Specific Ag Vitamin B12 RBC Folate Procalcitonin Urine Glucose (UA) 4+ H Urine Blood Small H Urine Mucus Rare H 03/20/23 03/20/23 03/20/23 04:48 06:55 07:57 RBC Hgb Hct MCH MCHC RDW Neutrophils # Lymphocytes # ESR Retic Count D-Dimer ABG pH ABG pO2 ABG HCO3 ABG Total CO2 ABG O2 Saturation Sodium Potassium Chloride Glucose POC Glucose (mg/dL) 598 H >600 H Hemoglobin A1c Calcium Iron TIBC % Saturation Transferrin Ferritin AST Alkaline Phosphatase Creatine Kinase Troponin I C-Reactive Protein Total Protein Albumin Albumin/Globulin Ratio Prostate Specific Ag Vitamin B12 RBC Folate Procalcitonin Urine Glucose (UA) 4+ H Urine Blood Small H Urine Mucus 03/20/23 03/20/23 03/20/23 09:24 11:00 12:05 RBC Hgb Hct MCH MCHC RDW Neutrophils # Lymphocytes # ESR Retic Count D-Dimer ABG pH ABG pO2 ABG HCO3 ABG Total CO2 ABG O2 Saturation Sodium Potassium Chloride Glucose POC Glucose (mg/dL) >600 H 321 H 280 H Hemoglobin A1c Calcium Iron TIBC % Saturation Transferrin Ferritin AST Alkaline Phosphatase Creatine Kinase Troponin I C-Reactive Protein Total Protein Albumin Albumin/Globulin Ratio Prostate Specific Ag Vitamin B12 RBC Folate Procalcitonin Urine Glucose (UA) Urine Blood Urine Mucus 03/20/23 03/20/23 03/20/23 13:06 13:28 14:05 RBC Hgb Hct MCH MCHC RDW Neutrophils # Lymphocytes # ESR Retic Count D-Dimer ABG pH ABG pO2 ABG HCO3 ABG Total CO2 ABG O2 Saturation Sodium Potassium Chloride Glucose POC Glucose (mg/dL) 191 H 180 H Hemoglobin A1c Calcium Iron TIBC % Saturation Transferrin Ferritin AST Alkaline Phosphatase Creatine Kinase Troponin I 0.841 H* C-Reactive Protein Total Protein Albumin Albumin/Globulin Ratio Prostate Specific Ag Vitamin B12 RBC Folate Procalcitonin Urine Glucose (UA) Urine Blood Urine Mucus 03/20/23 03/20/23 03/20/23 16:01 17:58 21:43 RBC Hgb Hct MCH MCHC RDW Neutrophils # Lymphocytes # ESR Retic Count D-Dimer ABG pH ABG pO2 ABG HCO3 ABG Total CO2 ABG O2 Saturation Sodium Potassium Chloride Glucose POC Glucose (mg/dL) 129 H 298 H 136 H Hemoglobin A1c Calcium Iron TIBC % Saturation Transferrin Ferritin AST Alkaline Phosphatase Creatine Kinase Troponin I C-Reactive Protein Total Protein Albumin Albumin/Globulin Ratio Prostate Specific Ag Vitamin B12 RBC Folate Procalcitonin Urine Glucose (UA) Urine Blood Urine Mucus 03/21/23 03/21/23 03/21/23 00:59 06:00 08:28 RBC Hgb Hct MCH MCHC RDW Neutrophils # Lymphocytes # ESR Retic Count D-Dimer ABG pH ABG pO2 ABG HCO3 ABG Total CO2 ABG O2 Saturation Sodium Potassium Chloride Glucose POC Glucose (mg/dL) 65 L 160 H Hemoglobin A1c 10.4 H Calcium Iron TIBC % Saturation Transferrin Ferritin AST Alkaline Phosphatase Creatine Kinase Troponin I C-Reactive Protein Total Protein Albumin Albumin/Globulin Ratio Prostate Specific Ag Vitamin B12 RBC Folate Procalcitonin Urine Glucose (UA) Urine Blood Urine Mucus 03/21/23 03/21/23 03/21/23 08:28 08:28 08:28 RBC 3.05 L Hgb 8.6 L D Hct 26.7 L MCH MCHC RDW Neutrophils # Lymphocytes # 0.4 L ESR 88 H Retic Count D-Dimer ABG pH ABG pO2 ABG HCO3 ABG Total CO2 ABG O2 Saturation Sodium 135 L Potassium 3.4 L Chloride Glucose 156 H POC Glucose (mg/dL) Hemoglobin A1c Calcium 8.2 L Iron 16 L TIBC 193 L % Saturation 8.29 L Transferrin 138.0 L Ferritin AST 132 H Alkaline Phosphatase 191 H Creatine Kinase 867 H Troponin I C-Reactive Protein 20.5 H Total Protein 5.6 L Albumin 2.5 L Albumin/Globulin Ratio Prostate Specific Ag Vitamin B12 1009.0 H RBC Folate Procalcitonin Urine Glucose (UA) Urine Blood Urine Mucus 03/21/23 03/21/23 03/21/23 12:17 17:19 20:51 RBC Hgb Hct MCH MCHC RDW Neutrophils # Lymphocytes # ESR Retic Count D-Dimer ABG pH ABG pO2 ABG HCO3 ABG Total CO2 ABG O2 Saturation Sodium Potassium Chloride Glucose POC Glucose (mg/dL) 213 H 203 H 186 H Hemoglobin A1c Calcium Iron TIBC % Saturation Transferrin Ferritin AST Alkaline Phosphatase Creatine Kinase Troponin I C-Reactive Protein Total Protein Albumin Albumin/Globulin Ratio Prostate Specific Ag Vitamin B12 RBC Folate Procalcitonin Urine Glucose (UA) Urine Blood Urine Mucus 03/22/23 03/22/23 03/22/23 06:28 06:28 06:28 RBC 3.30 L Hgb 9.0 L Hct 29.9 L MCH MCHC 30.1 L RDW 14.9 H Neutrophils # Lymphocytes # 0.48 L ESR 118 H Retic Count 2.52 H D-Dimer ABG pH ABG pO2 ABG HCO3 ABG Total CO2 ABG O2 Saturation Sodium Potassium Chloride Glucose POC Glucose (mg/dL) Hemoglobin A1c Calcium Iron TIBC % Saturation Transferrin Ferritin 797.0 H AST Alkaline Phosphatase Creatine Kinase Troponin I C-Reactive Protein Total Protein Albumin Albumin/Globulin Ratio Prostate Specific Ag 10.70 H Vitamin B12 RBC Folate 1,118 H Procalcitonin Urine Glucose (UA) Urine Blood Urine Mucus 03/22/23 03/22/23 03/22/23 06:28 07:23 12:16 RBC Hgb Hct MCH MCHC RDW Neutrophils # Lymphocytes # ESR Retic Count D-Dimer ABG pH ABG pO2 ABG HCO3 ABG Total CO2 ABG O2 Saturation Sodium 136 L Potassium Chloride Glucose 104 H POC Glucose (mg/dL) 113 H 129 H Hemoglobin A1c Calcium 8.1 L Iron TIBC % Saturation Transferrin Ferritin AST 76 H Alkaline Phosphatase 172 H Creatine Kinase Troponin I C-Reactive Protein Total Protein 6.0 L Albumin 2.8 L Albumin/Globulin Ratio Prostate Specific Ag Vitamin B12 RBC Folate Procalcitonin Urine Glucose (UA) Urine Blood Urine Mucus 03/22/23 03/22/23 03/23/23 18:43 20:31 03:41 RBC Hgb Hct MCH MCHC RDW Neutrophils # Lymphocytes # ESR Retic Count D-Dimer 1.75 H ABG pH 7.48 H ABG pO2 55 L* ABG HCO3 31 H ABG Total CO2 32 H ABG O2 Saturation 91.4 L Sodium Potassium Chloride Glucose 60 L POC Glucose (mg/dL) Hemoglobin A1c Calcium 7.7 L Iron TIBC % Saturation Transferrin Ferritin AST Alkaline Phosphatase 134 H Creatine Kinase Troponin I C-Reactive Protein Total Protein 5.4 L Albumin 2.5 L Albumin/Globulin Ratio Prostate Specific Ag Vitamin B12 RBC Folate Procalcitonin Urine Glucose (UA) Urine Blood Urine Mucus 03/23/23 03/23/23 03/23/23 03:41 03:41 05:40 RBC 2.96 L Hgb 8.4 L Hct 26.0 L MCH MCHC RDW Neutrophils # Lymphocytes # 0.4 L ESR Retic Count D-Dimer ABG pH ABG pO2 ABG HCO3 ABG Total CO2 ABG O2 Saturation Sodium Potassium Chloride Glucose POC Glucose (mg/dL) 69 L Hemoglobin A1c Calcium Iron TIBC % Saturation Transferrin Ferritin AST Alkaline Phosphatase Creatine Kinase Troponin I C-Reactive Protein Total Protein Albumin Albumin/Globulin Ratio Prostate Specific Ag Vitamin B12 RBC Folate Procalcitonin 0.32 H Urine Glucose (UA) Urine Blood Urine Mucus 03/23/23 03/24/23 03/24/23 20:29 06:05 06:05 RBC 3.01 L Hgb 8.1 L Hct 26.4 L MCH 26.9 L MCHC 30.7 L RDW 14.9 H Neutrophils # Lymphocytes # 0.56 L ESR Retic Count D-Dimer ABG pH ABG pO2 ABG HCO3 ABG Total CO2 ABG O2 Saturation Sodium Potassium Chloride Glucose 112 H POC Glucose (mg/dL) 122 H Hemoglobin A1c Calcium 7.8 L Iron TIBC % Saturation Transferrin Ferritin AST Alkaline Phosphatase 141 H Creatine Kinase Troponin I C-Reactive Protein Total Protein 5.3 L Albumin 2.6 L Albumin/Globulin Ratio 0.96 L Prostate Specific Ag Vitamin B12 RBC Folate Procalcitonin Urine Glucose (UA) Urine Blood Urine Mucus 03/24/23 07:03 RBC Hgb Hct MCH MCHC RDW Neutrophils # Lymphocytes # ESR Retic Count D-Dimer ABG pH ABG pO2 ABG HCO3 ABG Total CO2 ABG O2 Saturation Sodium Potassium Chloride Glucose POC Glucose (mg/dL) 129 H Hemoglobin A1c Calcium Iron TIBC % Saturation Transferrin Ferritin AST Alkaline Phosphatase Creatine Kinase Troponin I C-Reactive Protein Total Protein Albumin Albumin/Globulin Ratio Prostate Specific Ag Vitamin B12 RBC Folate Procalcitonin Urine Glucose (UA) Urine Blood Urine Mucus Assessment and Plan Assessment: * Altered mental status, likely due to toxic metabolic encephalopathy. Reasons multifactorial as mentioned below. 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 Reasons are multifactorial as mentioned above. * Treatment of various medical conditions as per IM and other specialties. * Limit amount of opiates/narcotics, sedatives. * Neurology will follow clinically. * Discussed with patient's in detail. Thank you for the consult.
--- NOTE | 2023-03-24 16:32 | P.PN ---
Subjective Progress Note Date: 03/24/23 Principal diagnosis: Diabetic foot ulcer and osteomyelitis Patient is a 67-year male with a past medical history significant for diabetes mellitus patient did have a Charcot deformity of the right foot chronic nonhealing wound to the right foot plantar aspect with underlying osteomyelitis and also with the left big toe nonhealing wound presented to hospital with weakn ess and multiple falls and worsening pain to the lower back area. On today's evaluation that is 03/24/2023, the patient denies any fever or any chills, the patient is breathing comfortably on room air without the need for supplemental oxygen, patient denies chest pain shortness of breath, the patient denies cough or sputum production, patient denies Abdominal pain, no nausea/vomiting or diarrhea, patient still complaining of lower back pain and apparently slightly less confused, at the bedside Patient did have white count is 7.42,, creatinine 0.9 local culture with Martine albicans, CT of the lumbar spine concerning for possible metastatic disease Objective - Vital Signs Vital signs: Vital Signs Temp 98.2 F 03/24/23 13:00 Pulse 69 03/24/23 13:00 Resp 15 03/24/23 13:00 BP 116/64 03/24/23 13:00 Pulse Ox 100 03/24/23 13:00 FiO2 Intake & Output 03/23/23 03/24/23 03/24/23 18:59 06:59 18:59 Intake Total 350 Output Total 600 500 Balance -250 -500 Weight 81 kg Intake: IV 350 Sodium Chloride 0.9% 1, 350 000 ml @ 50 mls/hr IV . Q20H [facility] Rx#:[id number] Output: Urine 600 500 Other: Voiding Method External Catheter External Catheter # Voids 300 - Exam GENERAL DESCRIPTION: An elderly male lying in bed in no distress RESPIRATORY SYSTEM: Unlabored breathing , decreased breath sounds at bases HEART: S1 S2 regular rate and rhythm , ABDOMEN: Soft , no tenderness EXTREMITIES: Bilateral feet wounds are currently dressed no drainage on the dressing - Labs CBC & Chem 7: 03/24/23 06:05 03/24/23 06:05 Labs: Abnormal Lab Results - Last 24 Hours (Table) 03/22/23 03/23/23 03/24/23 Range/Units 06:28 20:29 06:05 RBC 3.01 L (4.40-5.60) X 10*6/uL Hgb 8.1 L (13.0-17.0) g/dL Hct 26.4 L (39.6-50.0) % MCH 26.9 L (27.0-32.0) pg MCHC 30.7 L (32.0-37.0) g/dL RDW 14.9 H (11.5-14.5) % Lymphocytes # 0.56 L (0.90-5.00) X 10*3/uL Glucose (70-110) mg/dL POC Glucose (mg/dL) 122 H (70-110) mg/dL Calcium (8.7-10.3) mg/dL Alkaline Phosphatase (41-126) U/L Total Protein (6.2-8.2) g/dL Albumin (3.8-4.9) g/dL Albumin/Globulin Ratio (1.60-3.17) Ratio RBC Folate 1,118 H (280 - 791) ng/mL 03/24/23 03/24/23 03/24/23 Range/Units 06:05 07:03 12:38 RBC (4.40-5.60) X 10*6/uL Hgb (13.0-17.0) g/dL Hct (39.6-50.0) % MCH (27.0-32.0) pg MCHC (32.0-37.0) g/dL RDW (11.5-14.5) % Lymphocytes # (0.90-5.00) X 10*3/uL Glucose 112 H (70-110) mg/dL POC Glucose (mg/dL) 129 H 156 H (70-110) mg/dL Calcium 7.8 L (8.7-10.3) mg/dL Alkaline Phosphatase 141 H (41-126) U/L Total Protein 5.3 L (6.2-8.2) g/dL Albumin 2.6 L (3.8-4.9) g/dL Albumin/Globulin Ratio 0.96 L (1.60-3.17) Ratio RBC Folate (280 - 791) ng/mL Microbiology - Last 24 Hours (Table) 03/20/23 00:15 Blood Culture - Preliminary Blood 03/20/23 00:25 Blood Culture - Preliminary Blood Assessment and Plan (1) Diabetic foot ulcer Current Visit: Yes Status: Acute Priority: High Code(s): E11.621 - TYPE 2 DIABETES MELLITUS WITH FOOT ULCER; L97.509 - NON-PRESSURE CHRONIC ULCER OTH PRT UNSP FOOT W UNSP SEVERITY SNOMED Code(s): 163447947 (2) Foot osteomyelitis, right Current Visit: No Status: Acute Code(s): M86.9 - OSTEOMYELITIS, UNSPECIFIED SNOMED Code(s): 0391001930368991 Plan: 1patient presented to hospital with weakness multiple falls has been complaining of excruciating pain to the lower back area after a fall patient also have a nonhealing wound on the plantar aspect of the right foot as well as the left big toe with recent culture positive for MRSA Enterococcus faecalis and Alcaligenes faecalis for the patient was receiving antibiotic in the outpatient setting, patient did have persistent nonhealing of the wound which is probing down to the bone on the right foot plantar aspect concerning for acute on chronic osteomyelitis 2-local cultures have been obtained from both wounds and currently growing Martine as the cause is more likely colonizer 3-patient currently being treated with cefepime daptomycin and Flagyl local wound care with Aquacel silver dressing at the bedside and multiple questions and concerns were answered Dictation was produced using [employer] dictation software. please excuse any grammatical, word or spelling errors. Time with Patient: Less than 30
[2023-03-24 17:08] LABS: Glucose,Whole Blood 96 mg/dL (70-110)
--- NOTE | 2023-03-24 19:33 | P.PN ---
Subjective Progress Note Date: 03/24/23 Principal diagnosis: met prostate cancer Patient still somnolent at todays visit but is more alert. A & O x 2. Reporting lower back pain and sternal pain. Objective - Vital Signs Vital signs: Vital Signs Temp 98.2 F 03/24/23 13:00 Pulse 69 03/24/23 13:00 Resp 15 03/24/23 13:00 BP 116/64 03/24/23 13:00 Pulse Ox 100 03/24/23 13:00 FiO2 Intake & Output 03/24/23 03/24/23 03/25/23 06:59 18:59 06:59 Intake Total 240 Output Total 500 600 Balance -500 -360 Intake: Oral 240 Output: Urine 500 600 Other: Voiding Method External Catheter External Catheter # Bowel Movements 1 - Constitutional General appearance: Present: average body habitus, no acute distress - EENT ENT: Present: hearing grossly normal - Respiratory Details: breathing is even and unlabored - Cardiovascular Details: skin is warm and dry - Integumentary Integumentary: Absent: cyanotic - Musculoskeletal Musculoskeletal Comment(s): tenderness to sternum upon palpation Musculoskeletal: Present: generalized weakness - Psychiatric Psychiatric Comment(s): somnolent - Labs CBC & Chem 7: 03/24/23 06:05 03/24/23 06:05 Labs: Abnormal Lab Results - Last 24 Hours (Table) 03/21/23 03/22/23 03/23/23 Range/Units 08:28 06:28 20:29 RBC (4.40-5.60) X 10*6/uL Hgb (13.0-17.0) g/dL Hct (39.6-50.0) % MCH (27.0-32.0) pg MCHC (32.0-37.0) g/dL RDW (11.5-14.5) % Lymphocytes # (0.90-5.00) X 10*3/uL Glucose (70-110) mg/dL POC Glucose (mg/dL) 122 H (70-110) mg/dL Calcium (8.7-10.3) mg/dL Alkaline Phosphatase (41-126) U/L Total Protein (6.2-8.2) g/dL Albumin (3.8-4.9) g/dL Albumin/Globulin Ratio (1.60-3.17) Ratio Total PSA 11.3 H (<=4.0) ng/mL RBC Folate 1,118 H (280 - 791) ng/mL 03/24/23 03/24/23 03/24/23 Range/Units 06:05 06:05 07:03 RBC 3.01 L (4.40-5.60) X 10*6/uL Hgb 8.1 L (13.0-17.0) g/dL Hct 26.4 L (39.6-50.0) % MCH 26.9 L (27.0-32.0) pg MCHC 30.7 L (32.0-37.0) g/dL RDW 14.9 H (11.5-14.5) % Lymphocytes # 0.56 L (0.90-5.00) X 10*3/uL Glucose 112 H (70-110) mg/dL POC Glucose (mg/dL) 129 H (70-110) mg/dL Calcium 7.8 L (8.7-10.3) mg/dL Alkaline Phosphatase 141 H (41-126) U/L Total Protein 5.3 L (6.2-8.2) g/dL Albumin 2.6 L (3.8-4.9) g/dL Albumin/Globulin Ratio 0.96 L (1.60-3.17) Ratio Total PSA (<=4.0) ng/mL RBC Folate (280 - 791) ng/mL 03/24/23 Range/Units 12:38 RBC (4.40-5.60) X 10*6/uL Hgb (13.0-17.0) g/dL Hct (39.6-50.0) % MCH (27.0-32.0) pg MCHC (32.0-37.0) g/dL RDW (11.5-14.5) % Lymphocytes # (0.90-5.00) X 10*3/uL Glucose (70-110) mg/dL POC Glucose (mg/dL) 156 H (70-110) mg/dL Calcium (8.7-10.3) mg/dL Alkaline Phosphatase (41-126) U/L Total Protein (6.2-8.2) g/dL Albumin (3.8-4.9) g/dL Albumin/Globulin Ratio (1.60-3.17) Ratio Total PSA (<=4.0) ng/mL RBC Folate (280 - 791) ng/mL Microbiology - Last 24 Hours (Table) 03/20/23 12:47 Anaerobic Culture - Final Foot - Right 03/20/23 12:47 Anaerobic Culture - Final Toe - Left First - Imaging and Cardiology bone scan reviewed Assessment and Plan (1) Diabetic foot ulcer Current Visit: Yes Status: Acute Priority: High Code(s): E11.621 - TYPE 2 DIABETES MELLITUS WITH FOOT ULCER; L97.509 - NON-PRESSURE CHRONIC ULCER OTH PRT UNSP FOOT W UNSP SEVERITY SNOMED Code(s): 828211465 (2) Uncontrolled diabetes mellitus Current Visit: Yes Status: Acute Priority: High Code(s): SSM5986 - SNOMED Code(s): 82648538 (3) Malignant neoplasm of prostate Current Visit: Yes Status: Acute Priority: High Code(s): C61 - MALIGNANT NEOPLASM OF PROSTATE SNOMED Code(s): 707996301 (4) Anemia Current Visit: Yes Status: Acute Priority: Medium Code(s): D64.9 - ANEMIA, UNSPECIFIED SNOMED Code(s): 954940706 Plan: Metastatic prostate cancer: -The patient has been having some progressive weakness, fall the reports new areas of bone pain. Most recent CT scans did not appear to show any definite evidence of progression. - PSA in clinc 11/2022, 1.30. PSA now 10.7, concerning for progression of disease - Bone scan ordered to evaluate for metastatic progression. Scan revealed suspected widespread small areas of osseous metastases, with faint abnormal uptake involving the posterior left rib cage. Faint abnormal uptake involving the thoracic and upper lumbar spine. Intense abnormal uptake of the right iliac bone. -Consult placed to rad onc. Spoke with Dr. Rene regarding case, will plan to evaluate pt tomorrow -Will hold nubeqa for now. Clinic f/u with Dr. Moran will be schedule upon discharge Anemia: -The patient's baseline hemoglobin is in the 10 range, and his current level is at 8-9 range. -Anemia workup negative, this is likely due to inflammatory suppression, from his nonhealing wounds, and ongoing antibiotic therapy -Will continue to monitor, please transfuse for hgb less than 7 or if symptomatic
[2023-03-24 21:35] LABS: Glucose,Whole Blood 84 mg/dL (70-110)
[2023-03-24] MEDS: HYDROmorphone 0.5 MG/0.5 ML SYRINGE IVP PRN (22:34)
[2023-03-24 23:58] LABS: Glucose,Whole Blood 106 mg/dL (70-110)
[2023-03-25] MEDS: CEFEPIME 2 GM in SODIUM CHLORIDE 0.9% 100 ML IVPB SCH ×3 (00:12→17:30)
[2023-03-25] MEDS: HYDROmorphone 0.5 MG/0.5 ML SYRINGE IVP PRN ×3 (04:31→20:22)
[2023-03-25] MEDS: oxyCODONE-APAP 10-325MG 1 EACH TAB PO PRN ×2 (05:15→17:43)
[2023-03-25 07:20] LABS: Glucose,Whole Blood 164 mg/dL (70-110)
[2023-03-25 07:33] LABS: Methylmalonic Acid 0.24 umol/L (<0.40)
[2023-03-25 08:36] LABS: ALT 17 U/L (10-49); AST 25 U/L (14-35); Albumin 2.7 g/dL (3.8-4.9); Alkaline Phosphatase 141 U/L (41-126); BUN/Creat Ratio 16.78 Ratio (12.00-20.00); Blood Urea Nitrogen 15.1 mg/dL (9.0-27.0); Calcium 7.9 mg/dL (8.7-10.3); Carbon Dioxide 23.5 mmol/L (21.6-31.8); Chloride 104 mmol/L (96-109); Globulin 2.7 g/dL (1.6-3.3); Glucose 144 mg/dL (70-110); Potassium 4.3 mmol/L (3.5-5.5); Sodium 138 mmol/L (135-145); Total Bilirubin 0.3 mg/dL (0.3-1.2); Total Protein 5.4 g/dL (6.2-8.2)
[2023-03-25 08:40] LABS: Basophils # (A) 0.04 X 10*3/uL (0.00-0.10); Basophils % (A) 0.6 %; Eosinophils # (A) 0.12 X 10*3/uL (0.04-0.35); Eosinophils % (A) 1.8 %; HCT 25.6 % (39.6-50.0); HGB 7.8 g/dL (13.0-17.0); Lymphocytes # (A) 0.51 X 10*3/uL (0.90-5.00); Lymphocytes % (A) 7.7 %; MCH 27.1 pg (27.0-32.0); MCHC 30.5 g/dL (32.0-37.0); MCV 88.9 FL (80.0-97.0); Mean Platelet Volume 10.9 FL (9.5-12.2); Monocytes # (A) 0.45 X 10*3/uL (0.20-1.00); Monocytes % (A) 6.8 %; NRBC Per 100 WBC 0 X 10*3/uL (0.00-0.01); Neutrophils # (A) 5.47 X 10*3/uL (1.80-7.70); Platelet Count 234 X 10*3/uL (140-440); RBC 2.88 X 10*6/uL (4.40-5.60); RDW 15.1 % (11.5-14.5); WBC 6.66 X 10*3/uL (4.50-10.00)
[2023-03-25] MEDS: DAPTOmycin 500 MG in SODIUM CHLORIDE 0.9% 50 ML IVPB SCH (10:04)
[2023-03-25] MEDS: INSULIN ASPART (NovoLOG) 100 UNIT/ML VIAL SQ SCH ×4 (10:04→22:38)
[2023-03-25] MEDS: SODIUM CHLORIDE 0.9% 1,000 ML IV SCH (10:05)
[2023-03-25] MEDS: POTASSIUM CHLORIDE ER 20 MEQ TAB.ER PO SCH ×2 (11:17→22:39)
[2023-03-25] MEDS: FAMOTIDINE 20 MG TAB PO SCH ×2 (11:17→22:39)
[2023-03-25] MEDS: metroNIDAZOLE 500 MG TAB PO SCH ×3 (11:17→22:39)
[2023-03-25] MEDS: GABAPENTIN 300 MG CAP PO SCH ×3 (11:18→22:39)
[2023-03-25] MEDS: ASPIRIN 81 MG PO SCH (11:18)
[2023-03-25] MEDS: MAGNESIUM OXIDE 400 MG TAB PO SCH (11:18)
[2023-03-25] MEDS: CLOPIDOGREL 75 MG TAB PO SCH (11:18)
--- NOTE | 2023-03-25 11:34 | P.PN ---
Subjective Progress Note Date: 03/25/23 Aba dunn is 67 year old male patient who presented to the ER with concerns of generalized weakness. Patient had a recent lap sandra at [facility]. Patient reports that he has not been on his diabetic medication following lap sandra when EMS arrived they found elevated blood sugars greater than 600. Patient has been maintained on IV antibiotic vancomycin for right foot diabetic ulcers. Patient denies fevers at home. Additional medical history includes CAD, chest pain, CVA, diabetes mellitus, GI bleed, hyperlipidemia, hypertension, [place], prostate disorder, renal disease, sleep apnea, non-Hodgkin's lymphoma, heart cath with stent. Chest x-ray completed showing slightly prominent interstitial markings. Hip x-ray completed showing no acute fracture or dislocation. White blood cell 9.0 initial blood sugars greater than 600 patient was started on insulin drip. UA negative for ketones. Patient was resumed back on vancomycin. Troponin elevated 0.2-3 will order serial troponins and cardiac monitoring cardiology service is consulted. Vascular surgery and infectious disease service is consulted blood culture ordered. Repeat labs ordered. At this time patient is resting comfortably bed patient reports improvement with symptoms. Patient denies chest pain or shortness of breath. Patient denies nausea vomiting or diarrhea. Patient denies any urinary burning or frequency On 03/21/2023 patient was seen and examined on the medical floor he is alert and oriented 3, he is complaining of severe back pain that he rates at 10 out of 10, he states that he fell yesterday and hit his back, x-ray of the lumbar spine was done yesterday in the emergency room, and did not reveal any fracture, however it revealed diffuse sclerotic bone lesions, suggestive of metastatic disease, at this time will check PSA and consult oncology in that regard. Patient is also having significant drop in hemoglobin since yesterday, will check stools for occult blood, will check iron panel vitamin B12 and folate level, will follow closely. On 03/22/2023 patient is alert and oriented 3 patient is currently resting in bed. Oncology services are following bone scan ordered along with multiple lab values. Patient remains on IV daptomycin and Maxipime. Current vital signs temp 98.8, heart rate 77, respiratory rate 17, blood pressure 127/67 pulse with a pulse ox of 99% on room air On 03/23/2023 patient was seen and examined in the ICU, he is alert and more oriented today, yesterday he had severe confusion and mental status changes, computed tomography scan of the brain was done and there was no evidence of intracranial bleeding, ammonia level was normal, his mental status changes could be related to pain medications. Patient was transferred to ICU and monitored closely, arterial blood gas was done, critical care consult was requested. Today patient is feeling better he is more alert and oriented, he was cleared for transfer back to the floor. He underwent bone scan to assess possible metastatic bone disease, oncology are following Patient remains on IV cefepime and IV daptomycin, infectious disease following. On 03/24/2023 patient has been transferred to medical floor. Patient is alert. Patient remains on IV antibiotics. Current vital signs temp 97.5, 70, respiratory rate 17, blood pressure 125/66 on room air 99%. Oncology cardiology and critical care service is following. On 03/25/2023 patient is alert and oriented with intermittent episodes of con fusion and forgetfulness. Consult placed for radiation per oncology services. PT OT service is consulted. Patient remains on IV antibiotics daptomycin Maxipime and oral flagyl. Oncology, infectious disease, pulmonary and neurology services are all following. Current vital signs temp 97.4, heart rate 59, respiratory rate 16, blood pressure 121/67 with a pulse ox of 99% on room air Objective - Vital Signs Vital signs: Vital Signs Temp 97.4 F L 03/25/23 08:05 Pulse 59 L 03/25/23 08:05 Resp 16 03/25/23 08:05 BP 121/67 03/25/23 08:05 Pulse Ox 99 03/25/23 08:05 FiO2 Intake & Output 03/24/23 03/25/23 03/25/23 18:59 06:59 18:59 Intake Total 240 Output Total 600 400 Balance -360 -400 Intake: Oral 240 Output: Urine 600 400 Other: Voiding Method External Catheter External Catheter # Voids 1 # Bowel Movements 1 2 - Exam In general patient is alert and oriented x 3 in no distress HEENT head normocephalic and atraumatic Neck is supple no JVD no goiter no lymphadenopathy no carotid bruit Chest examination is clear to auscultation no crackles no wheezing Cardiac exam reveals regular heart sounds S1 and S2 no gallops no murmurs Abdomen is soft nontender no organomegaly with normal bowel sounds Extremity exam reveals minimal swelling, with bilateral wounds involving the feet and the toes Neurological examination reveals no gross focal deficits - Labs CBC & Chem 7: 03/25/23 06:08 03/25/23 06:08 Labs: Abnormal Lab Results - Last 24 Hours (Table) 03/21/23 03/24/23 03/25/23 Range/Units 08:28 12:38 06:08 RBC 2.88 L (4.40-5.60) X 10*6/uL Hgb 7.8 L (13.0-17.0) g/dL Hct 25.6 L (39.6-50.0) % MCHC 30.5 L (32.0-37.0) g/dL RDW 15.1 H (11.5-14.5) % Lymphocytes # 0.51 L (0.90-5.00) X 10*3/uL Glucose (70-110) mg/dL POC Glucose (mg/dL) 156 H (70-110) mg/dL Calcium (8.7-10.3) mg/dL Alkaline Phosphatase (41-126) U/L Total Protein (6.2-8.2) g/dL Albumin (3.8-4.9) g/dL Albumin/Globulin Ratio (1.60-3.17) Ratio Total PSA 11.3 H (<=4.0) ng/mL 03/25/23 03/25/23 Range/Units 06:08 07:09 RBC (4.40-5.60) X 10*6/uL Hgb (13.0-17.0) g/dL Hct (39.6-50.0) % MCHC (32.0-37.0) g/dL RDW (11.5-14.5) % Lymphocytes # (0.90-5.00) X 10*3/uL Glucose 144 H (70-110) mg/dL POC Glucose (mg/dL) 164 H (70-110) mg/dL Calcium 7.9 L (8.7-10.3) mg/dL Alkaline Phosphatase 141 H (41-126) U/L Total Protein 5.4 L (6.2-8.2) g/dL Albumin 2.7 L (3.8-4.9) g/dL Albumin/Globulin Ratio 1.00 L (1.60-3.17) Ratio Total PSA (<=4.0) ng/mL Microbiology - Last 24 Hours (Table) 03/20/23 12:47 Anaerobic Culture - Final Foot - Right 03/20/23 12:47 Anaerobic Culture - Final Toe - Left First Assessment and Plan Assessment: 1. Uncontrolled diabetes mellitus with hyperglycemia. 2. Recent laparoscopic cholecystectomy Analytarik Jeffery 3. Diabetic foot ulcers maintained on IV antibiotics 4. Metastatic prostate cancer. Bone scan revealed widespread small areas of osseous metastatic disease. Consult placed for radiology oncology 5. Elevated troponin 6. underlying history of [id number] diabetes mellitus 7. Underlying history of essential hypertension 8. History of neuropathy 9. History of hyperlipidemia 10. History of peripheral vascular disease 11. History of coronary artery disease with history of myocardial infarction 12. History of GI bleeding 13. History of CVA 14. 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 Altered mental status likely due to toxic metabolic encephalopathy. Neurology services are following DVT prophylaxis heparin. GI prophylaxis Protonix oncology, infectious disease, cardiology, critical care and neurology services following remains on IV antibiotics PT OT service is consulted
[2023-03-25] MEDS: HEPARIN SODIUM,PORCINE 5,000 UNIT/ML 1 ML VIAL SQ SCH ×2 (11:41→22:39)
[2023-03-25] MEDS: carvediloL 3.125 MG TAB PO SCH ×2 (11:47→17:29)
[2023-03-25] MEDS: glipiZIDE 10 MG TAB PO SCH ×2 (11:47→17:29)
[2023-03-25] MEDS: NYSTATIN 100,000 UNIT/GM POWD 15 GM TOPICAL SCH ×2 (11:47→22:38)
[2023-03-25 12:20] LABS: Glucose,Whole Blood 137 mg/dL (70-110)
--- NOTE | 2023-03-25 14:25 | P.PN ---
Subjective Progress Note Date: 03/25/23 I am seeing this patient in new consultation today 03/23/2023 in the intensive care unit after he was transferred yesterday evening for hypotension and suspected sepsis. 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 Patient also recently underwent cholecystectomy for acute ascending cholangitis earlier this month at an outside facility. Following the procedure there were reportedly some diabetic medication changes. Patient presented to the emergency room back on 03/20/2023 chiefly with the complaints of generalized weakness and high blood sugars. He also may have fell in the bathroom hitting his back, he was complaining of severe lower back pain on arrival. Currently, the patient is lethargic and confused, and most of this information is supplemented from the chart. He was receiving IV vancomycin outpatient for ongoing osteomyelitis of the right foot. He does have chronic wounds on bilateral feet. He is currently receiving IV antibiotics in the form of daptomycin, cefepime, and Flagyl per infectious disease. Patient does have a fluctuant lower back mass. Ultrasound of this area demonstrates a heterogenous indeterminate lesion which could represent hematoma. CT of the lower back demonstrated sclerotic lesions throughout the visualized osseous structures suggesting osseous metastatic disease. There was mild multilevel degenerative disc disease. No vertebral compression collapse or acute fracture seen. No large focal disc herniation or landen canal compromise seen. Patient does have active prostate cancer was on Nubeqa outpatient. As far as the patient's blood sugars, they're better controlled, on sliding scale insulin. Most recent BMP from yesterday shows a sodium 136, potassium 3.6, chloride 101, serum bicarb 26, BUN 13, creatinine 0.93, glucose 104. Most recent CBC from yesterday shows a WBC count of 7.4, hemoglobin 9, hematocrit 29.9, platelets 224. Apparently, the patient was hypotensive and confused earlier yesterday after noon, and was transferred to the intensive care unit. He is receiving multiple narcotics for pain management around the clock. Brain CT did not show any acute intracranial process. ABG showed a pO2 of 55, pCO2 41, pH of 7.48. This was done on room air. Patient is currently resting comfortably on 2 L/m nasal cannula. D-dimer was elevated at 1.75, the patient is undergoing chest CTA. Clinical suspicion for pulmonary embolism is low. Troponins were mildly elevated at 0.841. Echocardiogram done this admission showed a mildly impaired left ventricular ejection fraction of 40% and mild-moderate mitral regurgitation. Chest x-ray at that time showed low lung volumes with generalized haziness joselin earance which could represent atelectasis versus pulmonary edema. Blood pressure is currently normotensive, not requiring any pressors. I do not see any record recorded hypotensive blood pressures. Heart rhythm appears normal sinus. Currently afebrile. Blood and wound cultures are pending. Overall prognosis is guarded, will continue to monitor in the intensive care unit. The patient is seen today 03/24/2023 in follow-up on the regular medical floor. He is currently resting in bed. Awake and alert in no acute distress. He is maintaining O2 saturations in the 90s on room air. He has normal saline at 50 MLS per hour. He is continued on cefepime and daptomycin. He has a dressing to the right foot ulceration. CT angiogram ruled out pulmonary embolism. There is findings consistent with bronchitis with pneumonitis and lower lobes and a tiny consolidation in the right lung base. Multiple sclerotic lesions demonstrated in the thoracic spine concerning for metastatic disease. Bone scan reveals intense abnormal uptake involving the right foot most likely on the basis of Charcot joint. Suspect abnormal uptake overlying the left lower pelvis is artifactual. Faint abnormal uptake involving the posterior left rib cage suspicious for metastasis. Faint abnormal uptake in following the thoracic and upper lumbar spine. Suspicion for early metastasis with intense abnormal uptake in the right iliac bone. Suspect widespread small areas of osseous metastasis. The patient had sustained a fall last evening and a computed tomography scan of the brain and C-spine revealed no acute fracture of subluxation of the cervical spine. No intracranial hemorrhage. No midline shift or mass effect. Right foot wound cultures positive for Martine. Left first toe positive for Martine. White count 7.4. Hemoglobin 8.1. Platelets 211. Sodium 137. Potassium 4.4. Bicarb 25. UN 14. Creatinine 0.9. Glucose 112. AST 32. ALT 14. Alk phos 141. He is continued on daptomycin, Flagyl and cefepime. The patient is seen today 03/25/2023 in follow-up on the regular medical floor. He is awake and alert in no acute distress. He is maintaining O2 saturations in the 90s on room air. He has normal saline at 50 MLS per hour. He is continued on cefepime, daptomycin and Flagyl. White count 6.6. Hemoglobin 7.8. Platelets 234. Sodium 138. Potassium 4.3. Bicarb 24. BUN 15. Creatinine 0.9. Glucose 144. AST 25. ALT 17. Alk phos 141. Wound cultures positive for Martine only. Normal saline at 50 MLS per hour. Objective - Vital Signs Vital signs: Vital Signs Temp 98 F 03/25/23 12:43 Pulse 76 03/25/23 12:43 Resp 19 03/25/23 12:43 BP 149/73 03/25/23 12:43 Pulse Ox 99 03/25/23 12:43 FiO2 Intake & Output 03/24/23 03/25/23 03/25/23 18:59 06:59 18:59 Intake Total 240 Output Total 600 400 Balance -360 -400 Intake: Oral 240 Output: Urine 600 400 Other: Voiding Method External Catheter External Catheter External Catheter # Voids 1 # Bowel Movements 1 2 1 - Exam GENERAL EXAM: Awake, alert 67-year-old male, on room air, in no apparent distress. HEAD: Normocephalic and atraumatic EYES: Normal reaction of pupils, equal size. NOSE: Clear with pink turbinates. THROAT: No erythema or exudates. NECK: No masses, no JVD. CHEST: No chest wall deformity. LUNGS: Equal air entry with minimal bibasilar inspiratory crackles. No wheezes, rhonchi, dullness. No conversational dyspnea. CVS: S1 and S2 normal with grade 1 systolic murmur, regular rhythm. No extra heart sounds ABDOMEN: No hepatosplenomegaly, active bowel sounds, no guarding or rigidity. SPINE: No scoliosis or deformity. There is a left lateral fluctuant mass SKIN: Right plantar foot wound measuring approximately 5 x 5 cm, with granulation tissue and mild amounts of sloughing. Left great toe wound measuring approximately 2 x 2 centimeters. CENTRAL NERVOUS SYSTEM: Lethargic. Oriented to self only. Able to follow si mple commands. No focal deficits, tone is normal in all 4 extremities. EXTREMITIES: There is no peripheral edema, clubbing, or cyanosis. Peripheral pulses are intact. - Labs CBC & Chem 7: 03/25/23 06:08 03/25/23 06:08 Labs: Abnormal Lab Results - Last 24 Hours (Table) 03/25/23 03/25/23 03/25/23 Range/Units 06:08 06:08 07:09 RBC 2.88 L (4.40-5.60) X 10*6/uL Hgb 7.8 L (13.0-17.0) g/dL Hct 25.6 L (39.6-50.0) % MCHC 30.5 L (32.0-37.0) g/dL RDW 15.1 H (11.5-14.5) % Lymphocytes # 0.51 L (0.90-5.00) X 10*3/uL Glucose 144 H (70-110) mg/dL POC Glucose (mg/dL) 164 H (70-110) mg/dL Calcium 7.9 L (8.7-10.3) mg/dL Alkaline Phosphatase 141 H (41-126) U/L Total Protein 5.4 L (6.2-8.2) g/dL Albumin 2.7 L (3.8-4.9) g/dL Albumin/Globulin Ratio 1.00 L (1.60-3.17) Ratio 03/25/23 Range/Units 12:12 RBC (4.40-5.60) X 10*6/uL Hgb (13.0-17.0) g/dL Hct (39.6-50.0) % MCHC (32.0-37.0) g/dL RDW (11.5-14.5) % Lymphocytes # (0.90-5.00) X 10*3/uL Glucose (70-110) mg/dL POC Glucose (mg/dL) 137 H (70-110) mg/dL Calcium (8.7-10.3) mg/dL Alkaline Phosphatase (41-126) U/L Total Protein (6.2-8.2) g/dL Albumin (3.8-4.9) g/dL Albumin/Globulin Ratio (1.60-3.17) Ratio Microbiology - Last 24 Hours (Table) 03/20/23 00:15 Blood Culture - Final Blood 03/20/23 00:25 Blood Culture - Final Blood 03/20/23 12:47 Anaerobic Culture - Final Foot - Right 03/20/23 12:47 Anaerobic Culture - Final Toe - Left First Assessment and Plan Assessment: Acute hypoxemic respiratory failure, possibly related to mild exacerbation of systolic congestive heart failure. Chest x-ray showed low lung volumes with generalized hazy appearance which could represent atelectasis versus pulmonary edema. No focal infiltrates or evidence of pneumonia. Recovered and on room air Hypotension and suspected sepsis, improved, not requiring vasopressors. Recovered Hyperglycemia, improved, on NovoLog sliding scale insulin Altered mental status, possibly related to metabolic encephalopathy, secondary to above. Improved Chronic osteomyelitis of the right foot, receiving IV antibiotics outpatient, currently on antibiotics per infectious disease Bilateral foot wounds Prostate cancer, maintained on Nubeqa outpatient Lower back pain, with suspected metastatic disease. CT of the lower back demonstrated sclerotic lesions throughout the visualized osseous structures suggesting osseous metastatic disease. There was mild multilevel degenerative disc disease. No vertebral compression collapse or acute fracture seen. No large focal disc herniation or landen canal compromise seen. CT angiogram ruled out pulmonary embolism. There is findings consistent with bronchitis with pneumonitis and lower lobes and a tiny consolidation in the right lung base. Multiple sclerotic lesions demonstrated in the thoracic spine concerning for metastatic disease. Bone scan reveals intense abnormal uptake involving the right foot most likely on the basis of Charcot joint. Suspect abnormal uptake overlying the left lower pelvis is artifactual. Faint abnormal uptake involving the posterior left rib cage suspicious for metastasis. Faint abnormal uptake in following the thoracic and upper lumbar spine. Suspicion for early metastasis with intense abnormal uptake in the right iliac bone. Suspect widespread small areas of osseous metastasis. Fall on 03/23/2023. Computed tomography scan of the brain and C-spine ruled out fracture. No acute intracranial abnormality Lumbar mass, ultrasound of this area demonstrates a heterogenous indeterminate lesion which could represent hematoma Uncontrolled [id number] diabetes mellitus, with diabetic foot ulcers Coronary artery disease with previous CABG Hyperlipidemia History of hypertension History of CVA/TIA History of PVD with previous bilateral iliac stents Recent history of cholecystectomy History of previous left nephrectomy related to transitional cell carcinoma Anemia of chronic disease Plan: The patient was seen and evaluated Labs and medications reviewed Radiation oncology is consulted Continue cefepime, daptomycin and Flagyl Stable and on room air Continue saline at 50 Mls per hour Heparin for DVT prophylaxis We will continue to follow This patient was seen independently by the nurse practitioner I have personally seen and examined the patient, performed the documentation and the assessment and plan as written. Number of minutes spent on the visit: 22.
[2023-03-25 17:15] LABS: Glucose,Whole Blood 117 mg/dL (70-110)
[2023-03-25 21:28] LABS: Glucose,Whole Blood 88 mg/dL (70-110)
[2023-03-26] MEDS: HYDROmorphone 0.5 MG/0.5 ML SYRINGE IVP PRN ×2 (01:44→16:17)
[2023-03-26 07:18] LABS: Glucose,Whole Blood 101 mg/dL (70-110)
[2023-03-26] MEDS: INSULIN ASPART (NovoLOG) 100 UNIT/ML VIAL SQ SCH ×4 (07:28→21:56)
--- NOTE | 2023-03-26 08:42 | P.CONS ---
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 He has now been diagnosed with a high risk adenocarcinoma of the prostate group IIC (cT2a, cN0, M0) with a PSA of 5.3 and Chancellor 8 (4+4). He underwent definitive radiotherapy with concurrent ADT finishing on 02/07/2020. He unfortunately was found to have metastatic disease and a rising PSA in 01/2022. He underwent a short course of palliative radiotherapy to the sternum finishing 20 Gy in 5 fractions on 06/11/22. The patient unfortunately was hospitalized on March 20 secondary to progressive weakness and falls. He was found to have significant hyperglycemia. The patient had been recently on vancomycin for infection of the foot. Acco rding to the nursing staff, the patient was having some altered mentation initially. However, he has improved over the last 2 days. The patient underwent a CTA of the chest on March 23. This was negative for PE, but did show some pneumonitis in the lower lungs. He also underwent a bone scan at this time. Based on my review, this scan is largely similar to his previous scan. The patient has stable small areas of metastatic disease. The patient has been on Darolutamide for his prostate cancer + Lupron. His PSA however has shown an increase during this hospital stay going from 1.3 on December 03 up to 10.7 on March 12. According to the nursing staff, the patient had complained of low back pain. However, when speaking with the patient today, he states that his pain is currently well-controlled. He does note that he has missed several days of his Darolutamide. Review of Systems Eyes: denies blurred vision Cardiovascular: Denies chest pain Respiratory: Denies cough Gastrointestinal: Denies BRBPR Genitourinary: Reports incontinence Integumentary: Denies rash Neurological: Reports confusion, Denies aphasia Psychiatric: Denies anxiety Past Medical History Past Medical History: Coronary Artery Disease (CAD), Cancer, Chest Pain / Angina, CVA/TIA, Diabetes Mellitus, GI Bleed, Hyperlipidemia, Hypertension, Myocardial Infarction (DC), Prostate Disorder, Renal Disease, Sleep Apnea/CPAP/BIPAP Additional Past Medical History / Comment(s): SHINGLES 2014 , C-DIFF 2012., HX DIVERTICULOSIS, NEUROPATHY IN HANDS & FEET., LEFT KIDNEY CANCER WITH NEPHRECTOMY URETER & PART OF BLADDER & LYMPH NODES REMOVED., HAS CYST RIGHT KIDNEY, STAGE 3 KIDNEY DISEASE., HX OF SLEEP APNEA (SURGERY)., NON-HODGKINS LYMPHOMA -LAST PET SCAN NEGATIVE., STATES NO RESIDUAL EFFECT FROM HX CVA/TIA., 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 Last Myocardial Infarction Date:: 2012 History of Any Multi-Drug Resistant Organisms: None Reported Year Discovered:: 01/22/23 MDRO Source:: Toe Right FIrst Past Surgical History: Bowel Resection, Heart Catheterization, Heart Catheterization With Stent, Hernia Repair, Tonsillectomy Additional Past Surgical History / Comment(s): 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 , CIRCUMCISION cataracts., PIECE OF METAL REMOVED FROM ABD (WAR WOUND) - DEVELOPED SCAR TISSUE & PART OF LARGE INTESTINE REMOVED., ABD HERNIA REPAIR. SX FOR SLEEP APNEA. COLONOSCOPY/POLYPECTOMY., SUDHEER ILIAC VEIN STENTING.,, STATES TOTAL OF 4 CARDIAC STENTS, HEART CATH 12/2018. Past Anesthesia/Blood Transfusion Reactions: No Reported Reaction Date of Last Stent Placement:: 01/2014 Past Psychological History: No Psychological Hx Reported Additional Psychological History / Comment(s): . Smoking Status: Current every day smoker Past Alcohol Use History: Occasional Additional Past Alcohol Use History / Comment(s): QUIT SMOKING (MAR 2019). and restarted in 2020, STARTED SMOKING AT AGE 12. Past Drug Use History: None Reported - Past Family History Mother Additional Family Medical History / Comment(s): from complications from broken hip. Father Family Medical History: Cancer Sister(s) Family Medical History: Diabetes Mellitus, Deep Vein Thrombosis (DVT) Medications and Allergies Home Medications Medication Instructions Recorded Confirmed Type Clopidogrel Bisulfate [Clopidogrel] 75 mg PO DAILY 02/04/14 03/20/23 History Fluticasone Nasal [place] [Flonase 1 spr EA NOSTRIL DAILY PRN 04/29/19 03/20/23 History Nasal [place]] Gabapentin 600 mg PO TID 11/04/22 03/20/23 History hydrOXYzine HCL [Atarax] 50 mg PO HS PRN 11/04/22 03/20/23 History Aspirin 81 mg PO DAILY #30 tab 11/11/22 03/20/23 Rx Atorvastatin [Lipitor] 40 mg PO DAILY #30 tab 11/11/22 03/20/23 Rx Nubeqa 300 Mg Tablet 600 mg PO BID #0 11/11/22 03/20/23 Rx carvediloL [Coreg] 3.125 mg PO BID-W/MEALS 30 Days 11/11/22 03/20/23 Rx #60 tab Calcium Carb-Vit D 500Mg-5Mcg 1 tab PO TID-W/MEALS 11/24/22 03/20/23 History [Oscal 500+D 5 Mcg (200 Iu)] Potassium Chloride [K-Tab ER] 20 meq PO BID #60 tab 11/25/22 03/20/23 Rx Morphine Sulfate ER [Ms Contin] 30 mg PO BID 01/21/23 03/20/23 History oxyCODONE-APAP 10-325MG [Percocet 1 tab PO Q6H PRN 01/21/23 03/20/23 History 10-325 mg] Magnesium Oxide [Mag-Ox] 400 mg PO DAILY tab 01/26/23 03/20/23 Rx DAPTOmycin [Cubicin] 340 mg IV DAILY 03/20/23 03/20/23 History Furosemide [Lasix] 20 mg PO DAILY PRN 03/20/23 03/20/23 History cefTRIAXone [Rocephin] 2 gm IV DAILY 03/20/23 03/20/23 History Allergies Allergy/AdvReac Type Severity Reaction Status Date / Time Penicillins Allergy Unknown Verified 03/20/23 08:07 Childhood Tetanus Vaccines and Toxoid Allergy Unknown Verified 03/20/23 08:07 Childhood metformin AdvReac Nausea & Verified 03/20/23 08:07 Vomiting Physical Exam Vitals: Vital Signs Temp Pulse Resp BP Pulse Ox 03/26/23 08:04 99 03/26/23 07:51 98.4 F 77 16 142/74 99 03/26/23 01:59 98.0 F 60 17 124/67 94 L 03/25/23 19:55 98.5 F 61 18 106/60 98 03/25/23 15:45 99 03/25/23 12:43 98 F 76 19 149/73 99 Intake and Output 03/25/23 03/26/23 03/26/23 22:59 06:59 14:59 Intake Total 380 Output Total 700 500 Balance -320 -500 Intake: Oral 380 Output: Urine 700 500 Other: Voiding Method External Catheter Weight 78.562 kg - Constitutional General appearance: no acute distress - EENT Eyes: EOMI, PERRLA ENT: hearing grossly normal - Neck Neck: no lymphadenopathy - Respiratory Respiratory: bilateral: CTA - Cardiovascular Rhythm: regular - Gastrointestinal General gastrointestinal: no distended, no tenderness - Integumentary Integumentary: pale - Neurologic Neurologic: CNII-XII intact - Psychiatric Psychiatric: A&O x's 3, appropriate affect Results CBC & Chem 7: 03/25/23 06:08 03/25/23 06:08 Labs: Abnormal Lab Results - Last 24 Hours (Table) 03/25/23 03/25/23 03/25/23 Range/Units 06:08 06:08 12:12 RBC 2.88 L (4.40-5.60) X 10*6/uL Hgb 7.8 L (13.0-17.0) g/dL Hct 25.6 L (39.6-50.0) % MCHC 30.5 L (32.0-37.0) g/dL RDW 15.1 H (11.5-14.5) % Lymphocytes # 0.51 L (0.90-5.00) X 10*3/uL Glucose 144 H (70-110) mg/dL POC Glucose (mg/dL) 137 H (70-110) mg/dL Calcium 7.9 L (8.7-10.3) mg/dL Alkaline Phosphatase 141 H (41-126) U/L Total Protein 5.4 L (6.2-8.2) g/dL Albumin 2.7 L (3.8-4.9) g/dL Albumin/Globulin Ratio 1.00 L (1.60-3.17) Ratio 03/25/23 Range/Units 17:12 RBC (4.40-5.60) X 10*6/uL Hgb (13.0-17.0) g/dL Hct (39.6-50.0) % MCHC (32.0-37.0) g/dL RDW (11.5-14.5) % Lymphocytes # (0.90-5.00) X 10*3/uL Glucose (70-110) mg/dL POC Glucose (mg/dL) 117 H (70-110) mg/dL Calcium (8.7-10.3) mg/dL Alkaline Phosphatase (41-126) U/L Total Protein (6.2-8.2) g/dL Albumin (3.8-4.9) g/dL Albumin/Globulin Ratio (1.60-3.17) Ratio Microbiology - Last 24 Hours (Table) 03/20/23 00:15 Blood Culture - Final Blood 03/20/23 00:25 Blood Culture - Final Blood CT scan - chest: report reviewed, image reviewed CT scan - pelvis: report reviewed, image reviewed Assessment and Plan Assessment: The patient is a 67-year-old male with a history of a 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 He has now been diagnosed with a high risk adenocarcinoma of the prostate group IIC (cT2a, cN0, M0) with a PSA of 5.3 and Dejuan 8 (4+4). He underwent definitive radiotherapy with concurrent ADT finishing on 02/07/2020. He unfortunately was found to have metastatic disease and a rising PSA in 01/2022. He underwent a short course of palliative radiotherapy to the sternum finishing 20 Gy in 5 fractions on 06/11/22. He was hospitalized due to generalized weakness and found to have hyperglycemia. Plan: 1. Metastatic prostate cancer: The patient's recent increase in PSA is worrisome. He has missed a few doses of his Darolutamide, but I am skeptical this would be enough to explain the increase. His imaging however reveals largely stable bony metastatic disease. The patient reports that his pain is well controlled during my consultation today. We will continue to monitor this. I recommended the patient follow up with Dr. Camara as an outpatient and have his PSA re-checked. He also should be able to resume his Darolutamide in house. I do not think the patient needs any urgent radiation. We will continue to monitor his pain levels. 2. Falls/Generalized weakness: Per nursing, this appears to be improving today as the patient was able to get up and use the commode. The patient is starting to work with physical therapy. He understands he may require a stay at outpatient rehab. Time with Patient: Greater than 30
[2023-03-26] MEDS: HEPARIN SODIUM,PORCINE 5,000 UNIT/ML 1 ML VIAL SQ SCH ×2 (09:06→21:56)
[2023-03-26] MEDS: CLOPIDOGREL 75 MG TAB PO SCH (09:08)
[2023-03-26] MEDS: DAPTOmycin 500 MG in SODIUM CHLORIDE 0.9% 50 ML IVPB SCH (09:08)
[2023-03-26] MEDS: FAMOTIDINE 20 MG TAB PO SCH ×2 (09:08→21:55)
[2023-03-26] MEDS: metroNIDAZOLE 500 MG TAB PO SCH ×3 (09:08→21:56)
[2023-03-26] MEDS: ASPIRIN 81 MG PO SCH (09:08)
[2023-03-26] MEDS: GABAPENTIN 300 MG CAP PO SCH ×3 (09:08→21:55)
[2023-03-26] MEDS: MAGNESIUM OXIDE 400 MG TAB PO SCH (09:08)
[2023-03-26] MEDS: POTASSIUM CHLORIDE ER 20 MEQ TAB.ER PO SCH ×2 (09:08→21:56)
[2023-03-26] MEDS: NYSTATIN 100,000 UNIT/GM POWD 15 GM TOPICAL SCH ×2 (09:09→21:57)
[2023-03-26] MEDS: glipiZIDE 10 MG TAB PO SCH ×2 (09:09→17:54)
[2023-03-26] MEDS: carvediloL 3.125 MG TAB PO SCH ×2 (09:11→17:53)
[2023-03-26] MEDS: oxyCODONE-APAP 10-325MG 1 EACH TAB PO PRN (09:43)
--- NOTE | 2023-03-26 10:31 | P.PN ---
Subjective Progress Note Date: 03/25/23 Patient was seen for a follow-up. Patient is laying comfortably in the bed. Family members were not present. He denies any headache. He denies any visual problems. No diplopia. He himself feels that he is doing much better. He is pleased that there was something last week that he was "out of it", but now feels much better. Objective - Vital Signs Vital signs: Vital Signs Temp 98 F 03/25/23 12:43 Pulse 76 03/25/23 12:43 Resp 19 03/25/23 12:43 BP 149/73 03/25/23 12:43 Pulse Ox 99 03/25/23 15:45 FiO2 Intake & Output 03/25/23 03/25/23 03/26/23 06:59 18:59 06:59 Intake Total 380 Output Total 400 700 Balance -400 -320 Intake: Oral 380 Output: Urine 400 700 Other: Voiding Method External Catheter External Catheter # Voids 1 # Bowel Movements 2 1 - Exam Patient is alert and awake, fully oriented. He knows it is 03/25/2023 and that is in [facility] in [facility]. Speech and language functions are normal. Cranial nerves are normal. Muscle strength is normal. No ataxia. - Labs CBC & Chem 7: 03/25/23 06:08 03/25/23 06:08 Labs: Abnormal Lab Results - Last 24 Hours (Table) 03/25/23 03/25/23 03/25/23 Range/Units 06:08 06:08 07:09 RBC 2.88 L (4.40-5.60) X 10*6/uL Hgb 7.8 L (13.0-17.0) g/dL Hct 25.6 L (39.6-50.0) % MCHC 30.5 L (32.0-37.0) g/dL RDW 15.1 H (11.5-14.5) % Lymphocytes # 0.51 L (0.90-5.00) X 10*3/uL Glucose 144 H (70-110) mg/dL POC Glucose (mg/dL) 164 H (70-110) mg/dL Calcium 7.9 L (8.7-10.3) mg/dL Alkaline Phosphatase 141 H (41-126) U/L Total Protein 5.4 L (6.2-8.2) g/dL Albumin 2.7 L (3.8-4.9) g/dL Albumin/Globulin Ratio 1.00 L (1.60-3.17) Ratio 03/25/23 03/25/23 Range/Units 12:12 17:12 RBC (4.40-5.60) X 10*6/uL Hgb (13.0-17.0) g/dL Hct (39.6-50.0) % MCHC (32.0-37.0) g/dL RDW (11.5-14.5) % Lymphocytes # (0.90-5.00) X 10*3/uL Glucose (70-110) mg/dL POC Glucose (mg/dL) 137 H 117 H (70-110) mg/dL Calcium (8.7-10.3) mg/dL Alkaline Phosphatase (41-126) U/L Total Protein (6.2-8.2) g/dL Albumin (3.8-4.9) g/dL Albumin/Globulin Ratio (1.60-3.17) Ratio Microbiology - Last 24 Hours (Table) 03/20/23 00:15 Blood Culture - Final Blood 03/20/23 00:25 Blood Culture - Final Blood 03/20/23 12:47 Anaerobic Culture - Final Foot - Right Assessment and Plan Assessment: * Altered mental status, likely due to toxic metabolic encephalopathy. Reasons multifactorial as mentioned below. Encephalopathy much better. * Diabetes, uncontrolled * Diabetic foot ulcer, which Charcot joints * Metastatic prostate cancer, with bony metastasis * Foot osteomyelitis, right * Anemia * Hypoxemia * Status post recent cholecystectomy * Hypertension * Peripheral neuropathy * Hyperlipidemia * PAD * CAD * History of CVA * History of transitional cell carcinoma with history of left nephrectomy Plan: * Patient's mentation today appears much better. He is fully oriented. He denies any headache, and examination is non-focal. Discussed with primary physician about potentially checking MRI of the brain, but as he has improved remarkably, will hold off on brain MRI, unless patient worsens, or recommended by oncologist. * Treatment of various medical conditions as per IM and other specialties. * Limit amount of opiates/narcotics, sedatives. * Neurology will follow clinically.
[2023-03-26 11:08] LABS: Basophils # (A) 0.06 X 10*3/uL (0.00-0.10); Basophils % (A) 0.8 %; Eosinophils # (A) 0.13 X 10*3/uL (0.04-0.35); Eosinophils % (A) 1.8 %; HCT 27.3 % (39.6-50.0); HGB 8.3 g/dL (13.0-17.0); Lymphocytes # (A) 0.62 X 10*3/uL (0.90-5.00); Lymphocytes % (A) 8.4 %; MCH 26.9 pg (27.0-32.0); MCHC 30.4 g/dL (32.0-37.0); MCV 88.6 FL (80.0-97.0); Mean Platelet Volume 10.2 FL (9.5-12.2); Monocytes # (A) 0.53 X 10*3/uL (0.20-1.00); Monocytes % (A) 7.2 %; NRBC Per 100 WBC 0 X 10*3/uL (0.00-0.01); Neutrophils # (A) 5.99 X 10*3/uL (1.80-7.70); Neutrophils % (A) 80.7 %; Platelet Count 247 X 10*3/uL (140-440); RBC 3.08 X 10*6/uL (4.40-5.60); RDW 15.2 % (11.5-14.5); WBC 7.41 X 10*3/uL (4.50-10.00)
--- NOTE | 2023-03-26 11:43 | P.PN ---
Subjective Progress Note Date: 03/26/23 I am seeing this patient in new consultation today 03/23/2023 in the intensive care unit after he was transferred yesterday evening for hypotension and suspected sepsis. 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 Patient also recently underwent cholecystectomy for acute ascending cholangitis earlier this month at an outside facility. Following the procedure there were reportedly some diabetic medication changes. Patient presented to the emergency room back on 03/20/2023 chiefly with the complaints of generalized weakness and high blood sugars. He also may have fell in the bathroom hitting his back, he was complaining of severe lower back pain on arrival. Currently, the patient is lethargic and confused, and most of this information is supplemented from the chart. He was receiving IV vancomycin outpatient for ongoing osteomyelitis of the right foot. He does have chronic wounds on bilateral feet. He is currently receiving IV antibiotics in the form of daptomycin, cefepime, and Flagyl per infectious disease. Patient does have a fluctuant lower back mass. Ultrasound of this area demonstrates a heterogenous indeterminate lesion which could represent hematoma. CT of the lower back demonstrated sclerotic lesions throughout the visualized osseous structures suggesting osseous metastatic disease. There was mild multilevel degenerative disc disease. No vertebral compression collapse or acute fracture seen. No large focal disc herniation or landen canal compromise seen. Patient does have active prostate cancer was on Nubeqa outpatient. As far as the patient's blood sugars, they're better controlled, on sliding scale insulin. Most recent BMP from yesterday shows a sodium 136, potassium 3.6, chloride 101, serum bicarb 26, BUN 13, creatinine 0.93, glucose 104. Most recent CBC from yesterday shows a WBC count of 7.4, hemoglobin 9, hematocrit 29.9, platelets 224. Apparently, the patient was hypotensive and confused earlier yesterday after noon, and was transferred to the intensive care unit. He is receiving multiple narcotics for pain management around the clock. Brain CT did not show any acute intracranial process. ABG showed a pO2 of 55, pCO2 41, pH of 7.48. This was done on room air. Patient is currently resting comfortably on 2 L/m nasal cannula. D-dimer was elevated at 1.75, the patient is undergoing chest CTA. Clinical suspicion for pulmonary embolism is low. Troponins were mildly elevated at 0.841. Echocardiogram done this admission showed a mildly impaired left ventricular ejection fraction of 40% and mild-moderate mitral regurgitation. Chest x-ray at that time showed low lung volumes with generalized haziness joselin earance which could represent atelectasis versus pulmonary edema. Blood pressure is currently normotensive, not requiring any pressors. I do not see any record recorded hypotensive blood pressures. Heart rhythm appears normal sinus. Currently afebrile. Blood and wound cultures are pending. Overall prognosis is guarded, will continue to monitor in the intensive care unit. The patient is seen today 03/24/2023 in follow-up on the regular medical floor. He is currently resting in bed. Awake and alert in no acute distress. He is maintaining O2 saturations in the 90s on room air. He has normal saline at 50 MLS per hour. He is continued on cefepime and daptomycin. He has a dressing to the right foot ulceration. CT angiogram ruled out pulmonary embolism. There is findings consistent with bronchitis with pneumonitis and lower lobes and a tiny consolidation in the right lung base. Multiple sclerotic lesions demonstrated in the thoracic spine concerning for metastatic disease. Bone scan reveals intense abnormal uptake involving the right foot most likely on the basis of Charcot joint. Suspect abnormal uptake overlying the left lower pelvis is artifactual. Faint abnormal uptake involving the posterior left rib cage suspicious for metastasis. Faint abnormal uptake in following the thoracic and upper lumbar spine. Suspicion for early metastasis with intense abnormal uptake in the right iliac bone. Suspect widespread small areas of osseous metastasis. The patient had sustained a fall last evening and a computed tomography scan of the brain and C-spine revealed no acute fracture of subluxation of the cervical spine. No intracranial hemorrhage. No midline shift or mass effect. Right foot wound cultures positive for Martine. Left first toe positive for Martine. White count 7.4. Hemoglobin 8.1. Platelets 211. Sodium 137. Potassium 4.4. Bicarb 25. UN 14. Creatinine 0.9. Glucose 112. AST 32. ALT 14. Alk phos 141. He is continued on daptomycin, Flagyl and cefepime. The patient is seen today 03/25/2023 in follow-up on the regular medical floor. He is awake and alert in no acute distress. He is maintaining O2 saturations in the 90s on room air. He has normal saline at 50 MLS per hour. He is continued on cefepime, daptomycin and Flagyl. White count 6.6. Hemoglobin 7.8. Platelets 234. Sodium 138. Potassium 4.3. Bicarb 24. BUN 15. Creatinine 0.9. Glucose 144. AST 25. ALT 17. Alk phos 141. Wound cultures positive for Martine only. Normal saline at 50 MLS per hour. The patient is seen today 03/26/2023 in follow-up on the regular medical floor. He is sitting up in bed having breakfast. Awake and alert in no acute distress. Maintaining good O2 saturations in the 90s on room air. He's been afebrile. Hemodynamically stable. White count 7.4. Hemoglobin 8.3. Platelets 247. Glucose 101. The cultures revealed no growth. Wounds from the right and left toes were positive for Martine. He is currently on daptomycin and Flagyl per ID services. Normal saline at 50 MLS per hour. Heparin for DVT prophylaxis. Objective - Vital Signs Vital signs: Vital Signs Temp 98.4 F 03/26/23 07:51 Pulse 77 03/26/23 07:51 Resp 16 03/26/23 07:51 BP 142/74 03/26/23 07:51 Pulse Ox 99 03/26/23 08:04 FiO2 Intake & Output 03/25/23 03/26/23 03/26/23 18:59 06:59 18:59 Intake Total 380 180 Output Total 700 500 Balance -320 -500 180 Weight 78.562 kg Intake: Oral 380 180 Output: Urine 700 500 Other: Voiding Method External Catheter External Catheter # Bowel Movements 1 - Exam GENERAL EXAM: Awake, alert 67-year-old male, sitting up having breakfast, on room air, in no apparent distress. HEAD: Normocephalic and atraumatic EYES: Normal reaction of pupils, equal size. NOSE: Clear with pink turbinates. THROAT: No erythema or exudates. NECK: No masses, no JVD. CHEST: No chest wall deformity. LUNGS: Equal air entry with minimal bibasilar inspiratory crackles. No wheezes, rhonchi, dullness. No conversational dyspnea. CVS: S1 and S2 normal with grade 1 systolic murmur, regular rhythm. No extra heart sounds ABDOMEN: No hepatosplenomegaly, active bowel sounds, no guarding or rigidity. SPINE: No scoliosis or deformity. There is a left lateral fluctuant mass SKIN: Right plantar foot wound measuring approximately 5 x 5 cm, with granulation tissue and mild amounts of sloughing. Left great toe wound measuring approximately 2 x 2 centimeters. CENTRAL NERVOUS SYSTEM: Able to follow simple commands. No focal deficits, tone is normal in all 4 extremities. EXTREMITIES: There is no peripheral edema, clubbing, or cyanosis. Peripheral pulses are intact. - Labs CBC & Chem 7: 03/26/23 07:01 03/25/23 06:08 Labs: Abnormal Lab Results - Last 24 Hours (Table) 03/25/23 03/25/23 03/26/23 Range/Units 12:12 17:12 07:01 RBC 3.08 L (4.40-5.60) X 10*6/uL Hgb 8.3 L (13.0-17.0) g/dL Hct 27.3 L (39.6-50.0) % MCH 26.9 L (27.0-32.0) pg MCHC 30.4 L (32.0-37.0) g/dL RDW 15.2 H (11.5-14.5) % Lymphocytes # 0.62 L (0.90-5.00) X 10*3/uL POC Glucose (mg/dL) 137 H 117 H (70-110) mg/dL Microbiology - Last 24 Hours (Table) 03/20/23 00:15 Blood Culture - Final Blood 03/20/23 00:25 Blood Culture - Final Blood Assessment and Plan Assessment: Acute hypoxemic respiratory failure, possibly related to mild exacerbation of systolic congestive heart failure. Chest x-ray showed low lung volumes with generalized hazy appearance which could represent atelectasis versus pulmonary edema. No focal infiltrates or evidence of pneumonia. Recovered and on room air Hypotension and suspected sepsis, improved, not requiring vasopressors. Recovered Hyperglycemia, improved, on NovoLog sliding scale insulin Altered mental status, possibly related to metabolic encephalopathy, secondary to above. Improved Chronic osteomyelitis of the right foot, currently on antibiotics per infectious disease Bilateral foot wounds Prostate cancer, maintained on Nubeqa outpatient Lower back pain, with suspected metastatic disease. CT of the lower back dem onstrated sclerotic lesions throughout the visualized osseous structures suggesting osseous metastatic disease. There was mild multilevel degenerative disc disease. No vertebral compression collapse or acute fracture seen. No large focal disc herniation or landen canal compromise seen. CT angiogram ruled out pulmonary embolism. There is findings consistent with bronchitis with pneumonitis and lower lobes and a tiny consolidation in the right lung base. Multiple sclerotic lesions demonstrated in the thoracic spine concerning for metastatic disease. Bone scan reveals intense abnormal uptake involving the right foot most likely on the basis of Charcot joint. Suspect abnormal uptake overlying the left lower pelvis is artifactual. Faint abnormal uptake involving the posterior left rib cage suspicious for metastasis. Faint abnormal uptake in following the thoracic and upper lumbar spine. Suspicion for early metastasis with intense abnormal uptake in the right iliac bone. Suspect widespread small areas of osseous metastasis. Fall on 03/23/2023. Computed tomography scan of the brain and C-spine ruled out fracture. No acute intracranial abnormality Lumbar mass, ultrasound of this area demonstrates a heterogenous indeterminate lesion which could represent hematoma Uncontrolled [id number] diabetes mellitus, with diabetic foot ulcers Coronary artery disease with previous CABG Hyperlipidemia History of hypertension History of CVA/TIA History of PVD with previous bilateral iliac stents Recent history of cholecystectomy History of previous left nephrectomy related to transitional cell carcinoma Anemia of chronic disease Plan: The patient was seen and evaluated Labs and medications reviewed Radiation oncology not planning any treatments Follow-up with urology regarding PSA levels Continue cefepime, daptomycin and Flagyl Heparin for DVT prophylaxis May need subacute rehabilitation We will continue to follow This patient was seen independently by the nurse practitioner I have personally seen and examined the patient, performed the documentation and the assessment and plan as written. Number of minutes spent on the visit: 24.
[2023-03-26 11:49] LABS: ALT 14 U/L (10-49); AST 18 U/L (14-35); Albumin 2.6 g/dL (3.8-4.9); Albumin/Globulin Ratio 0.93 Ratio (1.60-3.17); Alkaline Phosphatase 133 U/L (41-126); BUN/Creat Ratio 16.67 Ratio (12.00-20.00); Calcium 7.8 mg/dL (8.7-10.3); Carbon Dioxide 23.1 mmol/L (21.6-31.8); Chloride 103 mmol/L (96-109); Globulin 2.8 g/dL (1.6-3.3); Glucose 63 mg/dL (70-110); Potassium 4.7 mmol/L (3.5-5.5); Sodium 135 mmol/L (135-145); Total Bilirubin 0.3 mg/dL (0.3-1.2); Total Protein 5.4 g/dL (6.2-8.2)
[2023-03-26 11:50] LABS: Glucose,Whole Blood 175 mg/dL (70-110)
[2023-03-26] MEDS: SODIUM CHLORIDE 0.9% 1,000 ML IV SCH (13:07)
--- NOTE | 2023-03-26 14:58 | P.PN ---
Subjective Progress Note Date: 03/25/23 Principal diagnosis: Diabetic foot ulcer and osteomyelitis Patient is a 67-year male with a past medical history significant for diabetes mellitus patient did have a Charcot deformity of the right foot chronic nonhealing wound to the right foot plantar aspect with underlying osteomyelitis and also with the left big toe nonhealing wound presented to hospital with weakn ess and multiple falls and worsening pain to the lower back area. On today's evaluation that is 03/25/2023, the patient remains to be febrile, the patient is breathing comfortably on room air. The patient denies having any shortness of breath no chest pain or cough, patient denies Abdominal pain, no nausea/vomiting or diarrhea, patient still have episodes of confusion back pain has decreased in intensity Patient did have white count is 6.66, creatinine 0.9 Objective - Vital Signs Vital signs: Vital Signs Temp 98 F 03/25/23 12:43 Pulse 76 03/25/23 12:43 Resp 19 03/25/23 12:43 BP 149/73 03/25/23 12:43 Pulse Ox 99 03/25/23 12:43 FiO2 Intake & Output 03/24/23 03/25/23 03/25/23 18:59 06:59 18:59 Intake Total 240 Output Total 600 400 Balance -360 -400 Intake: Oral 240 Output: Urine 600 400 Other: Voiding Method External Catheter External Catheter External Catheter # Voids 1 # Bowel Movements 1 2 - Exam GENERAL DESCRIPTION: An elderly male lying in bed in no distress RESPIRATORY SYSTEM: Unlabored breathing , decreased breath sounds at bases HEART: S1 S2 regular rate and rhythm , ABDOMEN: Soft , no tenderness EXTREMITIES: Bilateral feet wounds are currently dressed with drainage on the dr fenton - Labs CBC & Chem 7: 03/26/23 07:01 03/26/23 07:01 Labs: Abnormal Lab Results - Last 24 Hours (Table) 03/21/23 03/25/23 03/25/23 Range/Units 08:28 06:08 06:08 RBC 2.88 L (4.40-5.60) X 10*6/uL Hgb 7.8 L (13.0-17.0) g/dL Hct 25.6 L (39.6-50.0) % MCHC 30.5 L (32.0-37.0) g/dL RDW 15.1 H (11.5-14.5) % Lymphocytes # 0.51 L (0.90-5.00) X 10*3/uL Glucose 144 H (70-110) mg/dL POC Glucose (mg/dL) (70-110) mg/dL Calcium 7.9 L (8.7-10.3) mg/dL Alkaline Phosphatase 141 H (41-126) U/L Total Protein 5.4 L (6.2-8.2) g/dL Albumin 2.7 L (3.8-4.9) g/dL Albumin/Globulin Ratio 1.00 L (1.60-3.17) Ratio Total PSA 11.3 H (<=4.0) ng/mL 03/25/23 03/25/23 Range/Units 07:09 12:12 RBC (4.40-5.60) X 10*6/uL Hgb (13.0-17.0) g/dL Hct (39.6-50.0) % MCHC (32.0-37.0) g/dL RDW (11.5-14.5) % Lymphocytes # (0.90-5.00) X 10*3/uL Glucose (70-110) mg/dL POC Glucose (mg/dL) 164 H 137 H (70-110) mg/dL Calcium (8.7-10.3) mg/dL Alkaline Phosphatase (41-126) U/L Total Protein (6.2-8.2) g/dL Albumin (3.8-4.9) g/dL Albumin/Globulin Ratio (1.60-3.17) Ratio Total PSA (<=4.0) ng/mL Microbiology - Last 24 Hours (Table) 03/20/23 12:47 Anaerobic Culture - Final Foot - Right 03/20/23 12:47 Anaerobic Culture - Final Toe - Left First Assessment and Plan (1) Diabetic foot ulcer Current Visit: Yes Status: Acute Priority: High Code(s): E11.621 - TYPE 2 DIABETES MELLITUS WITH FOOT ULCER; L97.509 - NON-PRESSURE CHRONIC ULCER OTH PRT UNSP FOOT W UNSP SEVERITY SNOMED Code(s): 513537587 (2) Foot osteomyelitis, right Current Visit: No Status: Acute Code(s): M86.9 - OSTEOMYELITIS, UNSPECIFIED SNOMED Code(s): 3259627860573028 Plan: 1patient presented to hospital with weakness multiple falls has been c omplaining of excruciating pain to the lower back area after a fall patient also have a nonhealing wound on the plantar aspect of the right foot as well as the left big toe with recent culture positive for MRSA Enterococcus faecalis and Alcaligenes faecalis for the patient was receiving antibiotic in the outpatient setting, patient did have persistent nonhealing of the wound which is probing down to the bone on the right foot plantar aspect concerning for acute on chronic osteomyelitis 2-local cultures have been obtained from both wounds and currently growing Martine as the cause is more likely colonizer 3-patient to continue with the current treatment of cefepime daptomycin and Flagyl local wound care with Aquacel silver dressing Dictation was produced using [employer] dictation software. please excuse any grammatical, word or spelling errors. Time with Patient: Less than 30
--- NOTE | 2023-03-26 15:00 | P.PN ---
Subjective Progress Note Date: 03/26/23 Principal diagnosis: Diabetic foot ulcer and osteomyelitis Patient is a 67-year male with a past medical history significant for diabetes mellitus patient did have a Charcot deformity of the right foot chronic nonhealing wound to the right foot plantar aspect with underlying osteomyelitis and also with the left big toe nonhealing wound presented to hospital with weakn ess and multiple falls and worsening pain to the lower back area. On today's evaluation that is 03/26/2023, the patient denies any fever or any chills, the patient is breathing comfortably on room air and denies any shortness of breath, the patient denies any chest pain, no cough or sputum production, patient denies nausea/vomiting /diarrhea and no abdominal pain, patient is more awake and alert today and has been insisting on going home mention back pain has improved Patient did have white count is 7.41 and creatinine 0.9 Objective - Vital Signs Vital signs: Vital Signs Temp 98.1 F 03/26/23 14:00 Pulse 75 03/26/23 14:00 Resp 18 03/26/23 14:00 BP 118/65 03/26/23 14:00 Pulse Ox 99 03/26/23 14:00 FiO2 Intake & Output 03/25/23 03/26/23 03/26/23 18:59 06:59 18:59 Intake Total 380 360 Output Total 700 500 Balance -320 -500 360 Weight 78.562 kg Intake: Oral 380 360 Output: Urine 700 500 Other: Voiding Method External Catheter External Catheter # Bowel Movements 1 - Exam GENERAL DESCRIPTION: An elderly male lying in bed in no distress RESPIRATORY SYSTEM: Unlabored breathing , decreased breath sounds at bases HEART: S1 S2 regular rate and rhythm , ABDOMEN: Soft , no tenderness EXTREMITIES: Right foot wound on the plantar aspect did have significant amount of purulent drainage with minimal pressure on the dorsum aspect repeat culture has been obtained - Labs CBC & Chem 7: 03/26/23 07:01 03/26/23 07:01 Labs: Abnormal Lab Results - Last 24 Hours (Table) 03/25/23 03/26/23 03/26/23 Range/Units 17:12 07:01 07:01 RBC 3.08 L (4.40-5.60) X 10*6/uL Hgb 8.3 L (13.0-17.0) g/dL Hct 27.3 L (39.6-50.0) % MCH 26.9 L (27.0-32.0) pg MCHC 30.4 L (32.0-37.0) g/dL RDW 15.2 H (11.5-14.5) % Lymphocytes # 0.62 L (0.90-5.00) X 10*3/uL Glucose 63 L (70-110) mg/dL POC Glucose (mg/dL) 117 H (70-110) mg/dL Calcium 7.8 L (8.7-10.3) mg/dL Alkaline Phosphatase 133 H (41-126) U/L Total Protein 5.4 L (6.2-8.2) g/dL Albumin 2.6 L (3.8-4.9) g/dL Albumin/Globulin Ratio 0.93 L (1.60-3.17) Ratio 03/26/23 Range/Units 11:48 RBC (4.40-5.60) X 10*6/uL Hgb (13.0-17.0) g/dL Hct (39.6-50.0) % MCH (27.0-32.0) pg MCHC (32.0-37.0) g/dL RDW (11.5-14.5) % Lymphocytes # (0.90-5.00) X 10*3/uL Glucose (70-110) mg/dL POC Glucose (mg/dL) 175 H (70-110) mg/dL Calcium (8.7-10.3) mg/dL Alkaline Phosphatase (41-126) U/L Total Protein (6.2-8.2) g/dL Albumin (3.8-4.9) g/dL Albumin/Globulin Ratio (1.60-3.17) Ratio Microbiology - Last 24 Hours (Table) 03/20/23 00:15 Blood Culture - Final Blood 03/20/23 00:25 Blood Culture - Final Blood Assessment and Plan (1) Diabetic foot ulcer Current Visit: Yes Status: Acute Priority: High Code(s): E11.621 - TYPE 2 DIABETES MELLITUS WITH FOOT ULCER; L97.509 - NON-PRESSURE CHRONIC ULCER OTH PRT UNSP FOOT W UNSP SEVERITY SNOMED Code(s): 406158645 (2) Foot osteomyelitis, right Current Visit: No Status: Acute Code(s): M86.9 - OSTEOMYELITIS, UNSPECIFIED SNOMED Code(s): 9091287616597063 Plan: 1patient presented to hospital with weakness multiple falls has been complaining of excruciating pain to the lower back area after a fall patient also have a nonhealing wound on the plantar aspect of the right foot as well as the left big toe with recent culture positive for MRSA Enterococcus faecalis and Alcaligenes faecalis for the patient was receiving antibiotic in the outpatient setting, patient did have persistent nonhealing of the wound which is probing down to the bone on the right foot plantar aspect concerning for acute on chronic osteomyelitis 2-patient still has significant swelling to the right foot dorsum aspect and significant amount of purulent drainage was noticed concerning for abscess, case discussed with vascular surgery for evaluation and further drainage, the meantime deep culture were obtained today and results will be followed, I will continue the patient on daptomycin however cefepime and Flagyl was switched over to Invanz 1 waiting for repeat culture to be finalize at the bedside multiple questions concerned were answered Dictation was produced using [employer] dictation software. please excuse any grammatical, word or spelling errors. Time with Patient: Greater than 30
[2023-03-26] MEDS ORDERED: LIDOCAINE 1% INJ 10MG/ML (20 ML MDV) SQ ONE (15:38)
[2023-03-26] MEDS: ERTAPENEM 1 GM in SODIUM CHLORIDE 0.9% 50 ML IVPB SCH (16:14)
--- NOTE | 2023-03-26 16:18 | P.PN ---
Subjective Progress Note Date: 03/26/23 Aba dunn is 67 year old male patient who presented to the ER with concerns of generalized weakness. Patient had a recent lap sandra at [facility]. Patient reports that he has not been on his diabetic medication following lap sandra when EMS arrived they found elevated blood sugars greater than 600. Patient has been maintained on IV antibiotic vancomycin for right foot diabetic ulcers. Patient denies fevers at home. Additional medical history includes CAD, chest pain, CVA, diabetes mellitus, GI bleed, hyperlipidemia, hypertension, HI, prostate disorder, renal disease, sleep apnea, non-Hodgkin's lymphoma, heart cath with stent. Chest x-ray completed showing slightly prominent interstitial markings. Hip x-ray completed showing no acute fracture or dislocation. White blood cell 9.0 initial blood sugars greater than 600 patient was started on insulin drip. UA negative for ketones. Patient was resumed back on vancomycin. Troponin elevated 0.2-3 will order serial troponins and cardiac monitoring cardiology service is consulted. Vascular surgery and infectious disease service is consulted blood culture ordered. Repeat labs ordered. At this time patient is resting comfortably bed patient reports improvement with symptoms. Patient denies chest pain or shortness of breath. Patient denies nausea vomiting or diarrhea. Patient denies any urinary burning or frequency On 03/21/2023 patient was seen and examined on the medical floor he is alert and oriented 3, he is complaining of severe back pain that he rates at 10 out of 10, he states that he fell yesterday and hit his back, x-ray of the lumbar spine was done yesterday in the emergency room, and did not reveal any fracture, however it revealed diffuse sclerotic bone lesions, suggestive of metastatic disease, at this time will check PSA and consult oncology in that regard. Patient is also having significant drop in hemoglobin since yesterday, will check stools for occult blood, will check iron panel vitamin B12 and folate level, will follow closely. On 03/22/2023 patient is alert and oriented 3 patient is currently resting in bed. Oncology services are following bone scan ordered along with multiple lab values. Patient remains on IV daptomycin and Maxipime. Current vital signs temp 98.8, heart rate 77, respiratory rate 17, blood pressure 127/67 pulse with a pulse ox of 99% on room air On 03/23/2023 patient was seen and examined in the ICU, he is alert and more oriented today, yesterday he had severe confusion and mental status changes, computed tomography scan of the brain was done and there was no evidence of intracranial bleeding, ammonia level was normal, his mental status changes could be related to pain medications. Patient was transferred to ICU and monitored closely, arterial blood gas was done, critical care consult was requested. Today patient is feeling better he is more alert and oriented, he was cleared for transfer back to the floor. He underwent bone scan to assess possible metastatic bone disease, oncology are following Patient remains on IV cefepime and IV daptomycin, infectious disease following. On 03/24/2023 patient has been transferred to medical floor. Patient is alert. Patient remains on IV antibiotics. Current vital signs temp 97.5, 70, respiratory rate 17, blood pressure 125/66 on room air 99%. Oncology cardiology and critical care service is following. On 03/25/2023 patient is alert and oriented with intermittent episodes of con fusion and forgetfulness. Consult placed for radiation per oncology services. PT OT service is consulted. Patient remains on IV antibiotics daptomycin Maxipime and oral flagyl. Oncology, infectious disease, pulmonary and neurology services are all following. Current vital signs temp 97.4, heart rate 59, respiratory rate 16, blood pressure 121/67 with a pulse ox of 99% on room air. On 03/26/2023 patient was seen and examined on the medical floor, he is alert and oriented 3 in no apparent distress, he is complaining of pain in his right foot, he underwent debridement at the bedside by Dr. Knapp today, otherwise he denies any complaints there is no fever or chills no headache or dizziness no chest pain no shortness of breath no cough no nausea or vomiting no abdominal pain no diarrhea and no urinary symptoms Objective - Vital Signs Vital signs: Vital Signs Temp 98.4 F 03/26/23 07:51 Pulse 77 03/26/23 07:51 Resp 16 03/26/23 07:51 BP 142/74 03/26/23 07:51 Pulse Ox 99 03/26/23 08:04 FiO2 Intake & Output 03/25/23 03/26/23 03/26/23 18:59 06:59 18:59 Intake Total 380 180 Output Total 700 500 Balance -320 -500 180 Weight 78.562 kg Intake: Oral 380 180 Output: Urine 700 500 Other: Voiding Method External Catheter External Catheter # Bowel Movements 1 - Exam In general patient is alert and oriented x 3 in no distress HEENT head normocephalic and atraumatic Neck is supple no JVD no goiter no lymphadenopathy no carotid bruit Chest examination is clear to auscultation no crackles no wheezing Cardiac exam reveals regular heart sounds S1 and S2 no gallops no murmurs Abdomen is soft nontender no organomegaly with normal bowel sounds Extremity exam reveals minimal swelling, with bilateral wounds involving the feet and the toes Neurological examination reveals no gross focal deficits - Labs CBC & Chem 7: 03/26/23 07:01 03/26/23 07:01 Labs: Abnormal Lab Results - Last 24 Hours (Table) 03/25/23 03/26/23 03/26/23 Range/Units 17:12 07:01 07:01 RBC 3.08 L (4.40-5.60) X 10*6/uL Hgb 8.3 L (13.0-17.0) g/dL Hct 27.3 L (39.6-50.0) % MCH 26.9 L (27.0-32.0) pg MCHC 30.4 L (32.0-37.0) g/dL RDW 15.2 H (11.5-14.5) % Lymphocytes # 0.62 L (0.90-5.00) X 10*3/uL Glucose 63 L (70-110) mg/dL POC Glucose (mg/dL) 117 H (70-110) mg/dL Calcium 7.8 L (8.7-10.3) mg/dL Alkaline Phosphatase 133 H (41-126) U/L Total Protein 5.4 L (6.2-8.2) g/dL Albumin 2.6 L (3.8-4.9) g/dL Albumin/Globulin Ratio 0.93 L (1.60-3.17) Ratio 03/26/23 Range/Units 11:48 RBC (4.40-5.60) X 10*6/uL Hgb (13.0-17.0) g/dL Hct (39.6-50.0) % MCH (27.0-32.0) pg MCHC (32.0-37.0) g/dL RDW (11.5-14.5) % Lymphocytes # (0.90-5.00) X 10*3/uL Glucose (70-110) mg/dL POC Glucose (mg/dL) 175 H (70-110) mg/dL Calcium (8.7-10.3) mg/dL Alkaline Phosphatase (41-126) U/L Total Protein (6.2-8.2) g/dL Albumin (3.8-4.9) g/dL Albumin/Globulin Ratio (1.60-3.17) Ratio Microbiology - Last 24 Hours (Table) 03/20/23 00:15 Blood Culture - Final Blood 03/20/23 00:25 Blood Culture - Final Blood Assessment and Plan Assessment: 1. Uncontrolled diabetes mellitus with hyperglycemia. 2. Recent laparoscopic cholecystectomy Analytarik Jeffery 3. Diabetic foot ulcers maintained on IV antibiotics 4. Metastatic prostate cancer. Bone scan revealed widespread small areas of osseous metastatic disease. Consult placed for radiology oncology 5. Elevated troponin 6. underlying history of [id number] diabetes mellitus 7. Underlying history of essential hypertension 8. History of neuropathy 9. History of hyperlipidemia 10. History of peripheral vascular disease 11. History of coronary artery disease with history of myocardial infarction 12. History of GI bleeding 13. History of CVA 14. 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 Altered mental status likely due to toxic metabolic encephalopathy. Neurology services are following DVT prophylaxis heparin. GI prophylaxis Protonix oncology, infectious disease, cardiology, critical care and neurology services following remains on IV antibiotics PT OT service is consulted
[2023-03-26 17:21] LABS: Glucose,Whole Blood 174 mg/dL (70-110)
[2023-03-26 20:08] LABS: Glucose,Whole Blood 109 mg/dL (70-110)
--- NOTE | 2023-03-26 23:14 | OP ---
OPERATIVE REPORT DATE OF SERVICE : PREOPERATIVE DIAGNOSIS: Abscess right foot, dorsal aspect of the foot. POSTOPERATIVE DIAGNOSIS: Abscess right foot, dorsal aspect of the foot. PROCEDURE PERFORMED: I and D of the abscess. DESCRIPTION OF PROCEDURE: This patient was seen. Patient has history of Charcot foot and patient has an ulcer on the plantar aspect of the right foot. We have been treating with local wound care. The patient noticed some swelling and tenderness on the dorsum aspect of the foot. Right foot was prepped and draped applied in a sterile manner. 1% lidocaine plain infiltrated, a 2 cm long incision was made on the dorsal aspect of the foot, deepened through skin fat and fascia. On opening, there was a large abscess which was drained completely and the abscess was sent for aerobic and anaerobic culture. Wound was irrigated with hydrogen peroxide and saline. We packed the wound with silver rope, pressure dressing applied. The plan is we will change the dressing tomorrow. The patient tolerated the procedure well. MMODL / IJN: [id number] /
[2023-03-27] MEDS: HYDROmorphone 0.5 MG/0.5 ML SYRINGE IVP PRN (02:12)
[2023-03-27] MEDS ORDERED: LIDOCAINE 1% INJ 10MG/ML (20 ML MDV) SQ ONE (07:00)
[2023-03-27 07:07] LABS: Glucose,Whole Blood 99 mg/dL (70-110)
[2023-03-27] MEDS: ERTAPENEM 1 GM in SODIUM CHLORIDE 0.9% 50 ML IVPB SCH (08:35)
[2023-03-27] MEDS: ASPIRIN 81 MG PO SCH (08:46)
[2023-03-27] MEDS: GABAPENTIN 300 MG CAP PO SCH ×3 (08:46→21:44)
[2023-03-27] MEDS: carvediloL 3.125 MG TAB PO SCH ×2 (08:46→19:12)
[2023-03-27] MEDS: FAMOTIDINE 20 MG TAB PO SCH ×2 (08:46→21:44)
[2023-03-27] MEDS: metroNIDAZOLE 500 MG TAB PO SCH ×3 (08:46→21:44)
[2023-03-27] MEDS: POTASSIUM CHLORIDE ER 20 MEQ TAB.ER PO SCH ×2 (08:46→21:44)
[2023-03-27] MEDS: CLOPIDOGREL 75 MG TAB PO SCH (08:46)
[2023-03-27] MEDS: HEPARIN SODIUM,PORCINE 5,000 UNIT/ML 1 ML VIAL SQ SCH ×2 (08:47→21:44)
[2023-03-27] MEDS: MAGNESIUM OXIDE 400 MG TAB PO SCH (08:47)
[2023-03-27] MEDS: NYSTATIN 100,000 UNIT/GM POWD 15 GM TOPICAL SCH ×2 (08:47→21:46)
[2023-03-27] MEDS: oxyCODONE-APAP 10-325MG 1 EACH TAB PO PRN ×2 (08:52→23:09)
[2023-03-27] MEDS: INSULIN ASPART (NovoLOG) 100 UNIT/ML VIAL SQ SCH ×4 (08:54→21:41)
[2023-03-27] MEDS: glipiZIDE 10 MG TAB PO SCH ×2 (08:56→19:12)
[2023-03-27] MEDS: DAPTOmycin 500 MG in SODIUM CHLORIDE 0.9% 50 ML IVPB SCH (09:16)
--- NOTE | 2023-03-27 09:34 | P.PN ---
Subjective Progress Note Date: 03/26/23 Patient was seen for a follow-up. Patient is laying in the bed, somewhat somnolent. Denies any headache. States he is doing well. Objective - Vital Signs Vital signs: Vital Signs Temp 98.1 F 03/26/23 14:00 Pulse 67 03/26/23 17:58 Resp 18 03/26/23 14:00 BP 127/72 03/26/23 17:58 Pulse Ox 99 03/26/23 14:00 FiO2 Intake & Output 03/25/23 03/26/23 03/26/23 18:59 06:59 18:59 Intake Total 380 360 Output Total 700 500 700 Balance -320 -500 -340 Weight 78.562 kg Intake: Oral 380 360 Output: Urine 700 500 700 Other: Voiding Method External Catheter External Catheter # Bowel Movements 1 - Exam Patient is alert and awake, fully oriented. He knows it is 03/26/2023 and that is in [facility] in [facility]. He knows it will be 03/27/2023 tomorrow. Speech and language functions are normal. Cranial nerves are normal. Muscle strength is normal. No ataxia. - Labs CBC & Chem 7: 03/26/23 07:01 03/26/23 07:01 Labs: Abnormal Lab Results - Last 24 Hours (Table) 03/26/23 03/26/23 03/26/23 Range/Units 07:01 07:01 11:48 RBC 3.08 L (4.40-5.60) X 10*6/uL Hgb 8.3 L (13.0-17.0) g/dL Hct 27.3 L (39.6-50.0) % MCH 26.9 L (27.0-32.0) pg MCHC 30.4 L (32.0-37.0) g/dL RDW 15.2 H (11.5-14.5) % Lymphocytes # 0.62 L (0.90-5.00) X 10*3/uL Glucose 63 L (70-110) mg/dL POC Glucose (mg/dL) 175 H (70-110) mg/dL Calcium 7.8 L (8.7-10.3) mg/dL Alkaline Phosphatase 133 H (41-126) U/L Total Protein 5.4 L (6.2-8.2) g/dL Albumin 2.6 L (3.8-4.9) g/dL Albumin/Globulin Ratio 0.93 L (1.60-3.17) Ratio 03/26/23 Range/Units 17:18 RBC (4.40-5.60) X 10*6/uL Hgb (13.0-17.0) g/dL Hct (39.6-50.0) % MCH (27.0-32.0) pg MCHC (32.0-37.0) g/dL RDW (11.5-14.5) % Lymphocytes # (0.90-5.00) X 10*3/uL Glucose (70-110) mg/dL POC Glucose (mg/dL) 174 H (70-110) mg/dL Calcium (8.7-10.3) mg/dL Alkaline Phosphatase (41-126) U/L Total Protein (6.2-8.2) g/dL Albumin (3.8-4.9) g/dL Albumin/Globulin Ratio (1.60-3.17) Ratio Assessment and Plan Assessment: * Altered mental status, likely due to toxic metabolic encephalopathy. Reasons multifactorial as mentioned below. Encephalopathy much better. * Diabetes, uncontrolled * Diabetic foot ulcer, which Charcot joints * Metastatic prostate cancer, with bony metastasis * Foot osteomyelitis, right * Anemia * Hypoxemia * Status post recent cholecystectomy * Hypertension * Peripheral neuropathy * Hyperlipidemia * PAD * CAD * History of CVA * History of transitional cell carcinoma with history of left nephrectomy Plan: * Patient's mentation today appears much better. He is fully oriented. He denies any headache, and examination is non-focal. Discussed with primary physician about potentially checking MRI of the brain, but as he has improved remarkably, will hold off on brain MRI, unless patient worsens, or recommended by oncologist. * Treatment of various medical conditions as per IM and other specialties. * Limit amount of opiates/narcotics, sedatives.
--- NOTE | 2023-03-27 10:44 | P.PN ---
Subjective Progress Note Date: 03/27/23 Aba dunn is 67 year old male patient who presented to the ER with concerns of generalized weakness. Patient had a recent lap sandra at [facility]. Patient reports that he has not been on his diabetic medication following lap sandra when EMS arrived they found elevated blood sugars greater than 600. Patient has been maintained on IV antibiotic vancomycin for right foot diabetic ulcers. Patient denies fevers at home. Additional medical history includes CAD, chest pain, CVA, diabetes mellitus, GI bleed, hyperlipidemia, hypertension, NE, prostate disorder, renal disease, sleep apnea, non-Hodgkin's lymphoma, heart cath with stent. Chest x-ray completed showing slightly prominent interstitial markings. Hip x-ray completed showing no acute fracture or dislocation. White blood cell 9.0 initial blood sugars greater than 600 patient was started on insulin drip. UA negative for ketones. Patient was resumed back on vancomycin. Troponin elevated 0.2-3 will order serial troponins and cardiac monitoring cardiology service is consulted. Vascular surgery and infectious disease service is consulted blood culture ordered. Repeat labs ordered. At this time patient is resting comfortably bed patient reports improvement with symptoms. Patient denies chest pain or shortness of breath. Patient denies nausea vomiting or diarrhea. Patient denies any urinary burning or frequency On 03/21/2023 patient was seen and examined on the medical floor he is alert and oriented 3, he is complaining of severe back pain that he rates at 10 out of 10, he states that he fell yesterday and hit his back, x-ray of the lumbar spine was done yesterday in the emergency room, and did not reveal any fracture, however it revealed diffuse sclerotic bone lesions, suggestive of metastatic disease, at this time will check PSA and consult oncology in that regard. Patient is also having significant drop in hemoglobin since yesterday, will check stools for occult blood, will check iron panel vitamin B12 and folate level, will follow closely. On 03/22/2023 patient is alert and oriented 3 patient is currently resting in bed. Oncology services are following bone scan ordered along with multiple lab values. Patient remains on IV daptomycin and Maxipime. Current vital signs temp 98.8, heart rate 77, respiratory rate 17, blood pressure 127/67 pulse with a pulse ox of 99% on room air On 03/23/2023 patient was seen and examined in the ICU, he is alert and more oriented today, yesterday he had severe confusion and mental status changes, computed tomography scan of the brain was done and there was no evidence of intracranial bleeding, ammonia level was normal, his mental status changes could be related to pain medications. Patient was transferred to ICU and monitored closely, arterial blood gas was done, critical care consult was requested. Today patient is feeling better he is more alert and oriented, he was cleared for transfer back to the floor. He underwent bone scan to assess possible metastatic bone disease, oncology are following Patient remains on IV cefepime and IV daptomycin, infectious disease following. On 03/24/2023 patient has been transferred to medical floor. Patient is alert. Patient remains on IV antibiotics. Current vital signs temp 97.5, 70, respiratory rate 17, blood pressure 125/66 on room air 99%. Oncology cardiology and critical care service is following. On 03/25/2023 patient is alert and oriented with intermittent episodes of con fusion and forgetfulness. Consult placed for radiation per oncology services. PT OT service is consulted. Patient remains on IV antibiotics daptomycin Maxipime and oral flagyl. Oncology, infectious disease, pulmonary and neurology services are all following. Current vital signs temp 97.4, heart rate 59, respiratory rate 16, blood pressure 121/67 with a pulse ox of 99% on room air. On 03/26/2023 patient was seen and examined on the medical floor, he is alert and oriented 3 in no apparent distress, he is complaining of pain in his right foot, he underwent debridement at the bedside by Dr. Knapp today, otherwise he denies any complaints there is no fever or chills no headache or dizziness no chest pain no shortness of breath no cough no nausea or vomiting no abdominal pain no diarrhea and no urinary symptoms On 03/27/2023 patient is alert and oriented 3. IV antibiotics adjusted to IV Invanz and daptomycin. Wound cultures obtained. Will consult social work services to initiate discharge planning. Current vital signs temp 98.9, pulse rate 72, respirator rate 18, blood pressure 122/63 with pulse ox 97% on room air Objective - Vital Signs Vital signs: Vital Signs Temp 98.6 F 03/27/23 07:05 Pulse 78 03/27/23 07:05 Resp 18 03/27/23 07:05 BP 119/61 03/27/23 07:05 Pulse Ox 94 L 03/27/23 07:05 FiO2 Intake & Output 03/26/23 03/27/23 03/27/23 18:59 06:59 18:59 Intake Total 360 Output Total 700 400 Balance -340 -400 Weight 78.562 kg 78.7 kg Intake: Oral 360 Output: Urine 700 400 Other: Voiding Method External Catheter External Catheter # Voids 2 1 # Bowel Movements 1 - Exam In general patient is alert and oriented x 3 in no distress HEENT head normocephalic and atraumatic Neck is supple no JVD no goiter no lymphadenopathy no carotid bruit Chest examination is clear to auscultation no crackles no wheezing Cardiac exam reveals regular heart sounds S1 and S2 no gallops no murmurs Abdomen is soft nontender no organomegaly with normal bowel sounds Extremity exam reveals minimal swelling, with bilateral wounds involving the feet and the toes Neurological examination reveals no gross focal deficits - Labs CBC & Chem 7: 03/26/23 07:01 03/26/23 07:01 Labs: Abnormal Lab Results - Last 24 Hours (Table) 03/26/23 03/26/23 03/26/23 Range/Units 07:01 07:01 11:48 RBC 3.08 L (4.40-5.60) X 10*6/uL Hgb 8.3 L (13.0-17.0) g/dL Hct 27.3 L (39.6-50.0) % MCH 26.9 L (27.0-32.0) pg MCHC 30.4 L (32.0-37.0) g/dL RDW 15.2 H (11.5-14.5) % Lymphocytes # 0.62 L (0.90-5.00) X 10*3/uL Glucose 63 L (70-110) mg/dL POC Glucose (mg/dL) 175 H (70-110) mg/dL Calcium 7.8 L (8.7-10.3) mg/dL Alkaline Phosphatase 133 H (41-126) U/L Total Protein 5.4 L (6.2-8.2) g/dL Albumin 2.6 L (3.8-4.9) g/dL Albumin/Globulin Ratio 0.93 L (1.60-3.17) Ratio 03/26/23 Range/Units 17:18 RBC (4.40-5.60) X 10*6/uL Hgb (13.0-17.0) g/dL Hct (39.6-50.0) % MCH (27.0-32.0) pg MCHC (32.0-37.0) g/dL RDW (11.5-14.5) % Lymphocytes # (0.90-5.00) X 10*3/uL Glucose (70-110) mg/dL POC Glucose (mg/dL) 174 H (70-110) mg/dL Calcium (8.7-10.3) mg/dL Alkaline Phosphatase (41-126) U/L Total Protein (6.2-8.2) g/dL Albumin (3.8-4.9) g/dL Albumin/Globulin Ratio (1.60-3.17) Ratio Microbiology - Last 24 Hours (Table) 03/26/23 11:40 Gram Stain - Preliminary Foot - Right Assessment and Plan Assessment: 1. Uncontrolled diabetes mellitus with hyperglycemia. 2. Recent laparoscopic cholecystectomy Analy Jeffery 3. Diabetic foot ulcers maintained on IV antibiotics 4. Metastatic prostate cancer. Bone scan revealed widespread small areas of osseous metastatic disease. Consult placed for radiology oncology 5. Elevated troponin 6. underlying history of [id number] diabetes mellitus 7. Underlying history of essential hypertension 8. History of neuropathy 9. History of hyperlipidemia 10. History of peripheral vascular disease 11. History of coronary artery disease with history of myocardial infarction 12. History of GI bleeding 13. History of CVA 14. 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 Altered mental status likely due to toxic metabolic encephalopathy. N eurology services are following DVT prophylaxis heparin. GI prophylaxis Protonix oncology, infectious disease, cardiology, critical care and neurology services following remains on IV antibiotics PT OT service is consulted Status post surgical debridement on 03/26/2023 Social work services consulted
[2023-03-27 11:58] LABS: Glucose,Whole Blood 118 mg/dL (70-110)
[2023-03-27] MEDS: SODIUM CHLORIDE 0.9% 1,000 ML IV SCH (12:14)
--- NOTE | 2023-03-27 13:34 | P.PN ---
Subjective Progress Note Date: 03/27/23 I am seeing this patient in new consultation today 03/23/2023 in the intensive care unit after he was transferred yesterday evening for hypotension and suspected sepsis. 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 Patient also recently underwent cholecystectomy for acute ascending cholangitis earlier this month at an outside facility. Following the procedure there were reportedly some diabetic medication changes. Patient presented to the emergency room back on 03/20/2023 chiefly with the complaints of generalized weakness and high blood sugars. He also may have fell in the bathroom hitting his back, he was complaining of severe lower back pain on arrival. Currently, the patient is lethargic and confused, and most of this information is supplemented from the chart. He was receiving IV vancomycin outpatient for ongoing osteomyelitis of the right foot. He does have chronic wounds on bilateral feet. He is currently receiving IV antibiotics in the form of daptomycin, cefepime, and Flagyl per infectious disease. Patient does have a fluctuant lower back mass. Ultrasound of this area demonstrates a heterogenous indeterminate lesion which could represent hematoma. CT of the lower back demonstrated sclerotic lesions throughout the visualized osseous structures suggesting osseous metastatic disease. There was mild multilevel degenerative disc disease. No vertebral compression collapse or acute fracture seen. No large focal disc herniation or landen canal compromise seen. Patient does have active prostate cancer was on Nubeqa outpatient. As far as the patient's blood sugars, they're better controlled, on sliding scale insulin. Most recent BMP from yesterday shows a sodium 136, potassium 3.6, chloride 101, serum bicarb 26, BUN 13, creatinine 0.93, glucose 104. Most recent CBC from yesterday shows a WBC count of 7.4, hemoglobin 9, hematocrit 29.9, platelets 224. Apparently, the patient was hypotensive and confused earlier yesterday after noon, and was transferred to the intensive care unit. He is receiving multiple narcotics for pain management around the clock. Brain CT did not show any acute intracranial process. ABG showed a pO2 of 55, pCO2 41, pH of 7.48. This was done on room air. Patient is currently resting comfortably on 2 L/m nasal cannula. D-dimer was elevated at 1.75, the patient is undergoing chest CTA. Clinical suspicion for pulmonary embolism is low. Troponins were mildly elevated at 0.841. Echocardiogram done this admission showed a mildly impaired left ventricular ejection fraction of 40% and mild-moderate mitral regurgitation. Chest x-ray at that time showed low lung volumes with generalized haziness joselin earance which could represent atelectasis versus pulmonary edema. Blood pressure is currently normotensive, not requiring any pressors. I do not see any record recorded hypotensive blood pressures. Heart rhythm appears normal sinus. Currently afebrile. Blood and wound cultures are pending. Overall prognosis is guarded, will continue to monitor in the intensive care unit. The patient is seen today 03/24/2023 in follow-up on the regular medical floor. He is currently resting in bed. Awake and alert in no acute distress. He is maintaining O2 saturations in the 90s on room air. He has normal saline at 50 MLS per hour. He is continued on cefepime and daptomycin. He has a dressing to the right foot ulceration. CT angiogram ruled out pulmonary embolism. There is findings consistent with bronchitis with pneumonitis and lower lobes and a tiny consolidation in the right lung base. Multiple sclerotic lesions demonstrated in the thoracic spine concerning for metastatic disease. Bone scan reveals intense abnormal uptake involving the right foot most likely on the basis of Charcot joint. Suspect abnormal uptake overlying the left lower pelvis is artifactual. Faint abnormal uptake involving the posterior left rib cage suspicious for metastasis. Faint abnormal uptake in following the thoracic and upper lumbar spine. Suspicion for early metastasis with intense abnormal uptake in the right iliac bone. Suspect widespread small areas of osseous metastasis. The patient had sustained a fall last evening and a computed tomography scan of the brain and C-spine revealed no acute fracture of subluxation of the cervical spine. No intracranial hemorrhage. No midline shift or mass effect. Right foot wound cultures positive for Martine. Left first toe positive for Martine. White count 7.4. Hemoglobin 8.1. Platelets 211. Sodium 137. Potassium 4.4. Bicarb 25. UN 14. Creatinine 0.9. Glucose 112. AST 32. ALT 14. Alk phos 141. He is continued on daptomycin, Flagyl and cefepime. The patient is seen today 03/25/2023 in follow-up on the regular medical floor. He is awake and alert in no acute distress. He is maintaining O2 saturations in the 90s on room air. He has normal saline at 50 MLS per hour. He is continued on cefepime, daptomycin and Flagyl. White count 6.6. Hemoglobin 7.8. Platelets 234. Sodium 138. Potassium 4.3. Bicarb 24. BUN 15. Creatinine 0.9. Glucose 144. AST 25. ALT 17. Alk phos 141. Wound cultures positive for Martine only. Normal saline at 50 MLS per hour. The patient is seen today 03/26/2023 in follow-up on the regular medical floor. He is sitting up in bed having breakfast. Awake and alert in no acute distress. Maintaining good O2 saturations in the 90s on room air. He's been afebrile. Hemodynamically stable. White count 7.4. Hemoglobin 8.3. Platelets 247. Glucose 101. The cultures revealed no growth. Wounds from the right and left toes were positive for Martine. He is currently on daptomycin and Flagyl per ID services. Normal saline at 50 MLS per hour. Heparin for DVT prophylaxis. The patient is seen today 03/27/2023 in follow-up on the regular medical floor. He is currently sitting up in a chair at the bedside. Awake and alert in no acute distress. He is maintaining good O2 saturations in the 90s on room air. Blood sugar 118. Wounds from the right and left toes were positive for Martine. He is continued on Invanz, daptomycin and Flagyl. Follow-up right foot wound cultures pending. He remains on oral diuretics. Heparin for DVT prophylaxis. Normal saline at 50 MLS per hour. Objective - Vital Signs Vital signs: Vital Signs Temp 97.8 F 03/27/23 11:57 Pulse 71 03/27/23 11:57 Resp 18 03/27/23 11:57 BP 104/53 03/27/23 11:57 Pulse Ox 98 03/27/23 11:57 FiO2 Intake & Output 03/26/23 03/27/23 03/27/23 18:59 06:59 18:59 Intake Total 360 Output Total 700 400 Balance -340 -400 Weight 78.562 kg 78.7 kg Intake: Oral 360 Output: Urine 700 400 Other: Voiding Method External Catheter External Catheter # Voids 2 1 # Bowel Movements 1 - Exam GENERAL EXAM: Awake, alert and oriented 67-year-old male, sitting up in a chair, on room air, in no apparent distress. HEAD: Normocephalic and atraumatic EYES: Normal reaction of pupils, equal size. NOSE: Clear with pink turbinates. THROAT: No erythema or exudates. NECK: No masses, no JVD. CHEST: No chest wall deformity. LUNGS: Equal air entry with minimal bibasilar inspiratory crackles. No wheezes, rhonchi, dullness. No conversational dyspnea. CVS: S1 and S2 normal with grade 1 systolic murmur, regular rhythm. No extra heart sounds ABDOMEN: No hepatosplenomegaly, active bowel sounds, no guarding or rigidity. SPINE: No scoliosis or deformity. There is a left lateral fluctuant mass SKIN: Right plantar foot wound measuring approximately 5 x 5 cm, with granulation tissue and mild amounts of sloughing. Left great toe wound measuri ng approximately 2 x 2 centimeters. CENTRAL NERVOUS SYSTEM: Able to follow simple commands. No focal deficits, tone is normal in all 4 extremities. EXTREMITIES: There is no peripheral edema, clubbing, or cyanosis. Peripheral pulses are intact. - Labs CBC & Chem 7: 03/26/23 07:01 03/26/23 07:01 Labs: Abnormal Lab Results - Last 24 Hours (Table) 03/26/23 03/27/23 Range/Units 17:18 11:56 POC Glucose (mg/dL) 174 H 118 H (70-110) mg/dL Microbiology - Last 24 Hours (Table) 03/26/23 15:40 Gram Stain - Preliminary Foot - Right 03/26/23 11:40 Gram Stain - Preliminary Foot - Right Assessment and Plan Assessment: Acute hypoxemic respiratory failure, possibly related to mild exacerbation of systolic congestive heart failure. Chest x-ray showed low lung volumes with generalized hazy appearance which could represent atelectasis versus pulmonary edema. No focal infiltrates or evidence of pneumonia. Recovered and on room air Hypotension and suspected sepsis, improved, not requiring vasopressors. Recovered Hyperglycemia, improved, on NovoLog sliding scale insulin Altered mental status, possibly related to metabolic encephalopathy, secondary to above. Improved Chronic osteomyelitis of the right foot, currently on antibiotics per infectious disease Bilateral foot wounds Prostate cancer, maintained on Nubeqa outpatient Lower back pain, with suspected metastatic disease. CT of the lower back demonstrated sclerotic lesions throughout the visualized osseous structures suggesting osseous metastatic disease. There was mild multilevel degenerative disc disease. No vertebral compression collapse or acute fracture seen. No large focal disc herniation or landen canal compromise seen. CT angiogram ruled out pulmonary embolism. There is findings consistent with bronchitis with pneumonitis and lower lobes and a tiny consolidation in the right lung base. Multiple sclerotic lesions demonstrated in the thoracic spine concerning for metastatic disease. Bone scan reveals intense abnormal uptake involving the rig ht foot most likely on the basis of Charcot joint. Suspect abnormal uptake overlying the left lower pelvis is artifactual. Faint abnormal uptake involving the posterior left rib cage suspicious for metastasis. Faint abnormal uptake in following the thoracic and upper lumbar spine. Suspicion for early metastasis with intense abnormal uptake in the right iliac bone. Suspect widespread small areas of osseous metastasis. Fall on 03/23/2023. Computed tomography scan of the brain and C-spine ruled out fracture. No acute intracranial abnormality Lumbar mass, ultrasound of this area demonstrates a heterogenous indeterminate lesion which could represent hematoma Uncontrolled [id number] diabetes mellitus, with diabetic foot ulcers Coronary artery disease with previous CABG Hyperlipidemia History of hypertension History of CVA/TIA History of PVD with previous bilateral iliac stents Recent history of cholecystectomy History of previous left nephrectomy related to transitional cell carcinoma Anemia of chronic disease Plan: The patient was seen and evaluated Labs and medications reviewed Currently stable and on room air Continue cefepime, daptomycin and Flagyl Infectious disease is following Heparin for DVT prophylaxis We will continue to follow This patient was seen independently by the nurse practitioner I have personally seen and examined the patient, performed the documentation and the assessment and plan as written. Number of minutes spent on the visit: 22.
[2023-03-27 14:32] VITALS: BMI 23.5
--- NOTE | 2023-03-27 15:14 | P.PN ---
Subjective Progress Note Date: 03/27/23 Principal diagnosis: Diabetic foot ulcer and osteomyelitis Patient is a 67-year male with a past medical history significant for diabetes mellitus patient did have a Charcot deformity of the right foot chronic nonhealing wound to the right foot plantar aspect with underlying osteomyelitis and also with the left big toe nonhealing wound presented to hospital with weakn ess and multiple falls and worsening pain to the lower back area. On today's evaluation that is 03/27/2023 the patient remains to be afebrile, the patient is breathing comfortably on room air and no need for oxygen. The patient denies shortness of breath denies any chest pain or cough, patient de nies nausea/vomiting or diarrhea and no abdominal pain, denies any worsening pain into the right foot area Patient did have white count is 7.41 and creatinine 0.9 as of yesterday no lab draw today Objective - Vital Signs Vital signs: Vital Signs Temp 97.8 F 03/27/23 11:57 Pulse 71 03/27/23 11:57 Resp 18 03/27/23 11:57 BP 104/53 03/27/23 11:57 Pulse Ox 98 03/27/23 11:57 FiO2 Intake & Output 03/26/23 03/27/23 03/27/23 18:59 06:59 18:59 Intake Total 360 Output Total 700 400 Balance -340 -400 Weight 78.562 kg 78.7 kg Intake: Oral 360 Output: Urine 700 400 Other: Voiding Method External Catheter External Catheter # Voids 2 1 # Bowel Movements 1 - Exam GENERAL DESCRIPTION: An elderly male lying in bed in no distress RESPIRATORY SYSTEM: Unlabored breathing , decreased breath sounds at bases HEART: S1 S2 regular rate and rhythm , ABDOMEN: Soft , no tenderness EXTREMITIES: Right foot wound currently dressed no drainage of the dressing - Labs CBC & Chem 7: 03/26/23 07:01 03/26/23 07:01 Labs: Abnormal Lab Results - Last 24 Hours (Table) 03/26/23 03/27/23 Range/Units 17:18 11:56 POC Glucose (mg/dL) 174 H 118 H (70-110) mg/dL Microbiology - Last 24 Hours (Table) 03/26/23 15:40 Gram Stain - Preliminary Foot - Right 03/26/23 11:40 Gram Stain - Preliminary Foot - Right Assessment and Plan (1) Diabetic foot ulcer Current Visit: Yes Status: Acute Priority: High Code(s): E11.621 - TYPE 2 DIABETES MELLITUS WITH FOOT ULCER; L97.509 - NON-PRESSURE CHRONIC ULCER OTH PRT UNSP FOOT W UNSP SEVERITY SNOMED Code(s): 837013328 (2) Foot osteomyelitis, right Current Visit: No Status: Acute Code(s): M86.9 - OSTEOMYELITIS, UNSPECIFIED SNOMED Code(s): 2885928584712992 Plan: 1patient presented to hospital with weakness multiple falls has been complaining of excruciating pain to the lower back area after a fall patient also have a nonhealing wound on the plantar aspect of the right foot as well as the left big toe with recent culture positive for MRSA Enterococcus faecalis and Alcaligenes faecalis for the patient was receiving antibiotic in the outpatient setting, patient did have persistent nonhealing of the wound which is probing down to the bone on the right foot plantar aspect concerning for acute on chronic osteomyelitis 2-patient still has significant swelling to the right foot dorsum aspect and significant amount of purulent drainage was noticed concerning for abscess, case discussed with vascular surgery for reevaluation and further drainage which is currently pending cultures obtained from yesterday are currently pending patient to continue the daptomycin and Invanz and monitor clinical course closely Dictation was produced using [employer] dictation software. please excuse any grammatical, word or spelling errors. Time with Patient: Less than 30
[2023-03-27 17:16] LABS: Glucose,Whole Blood 86 mg/dL (70-110)
[2023-03-27 21:21] LABS: Glucose,Whole Blood 111 mg/dL (70-110)
--- NOTE | 2023-03-27 21:30 | P.PN ---
Subjective Progress Note Date: 03/27/23 Principal diagnosis: met prostate cancer Patient congition much improved. Awake and alert. Reporting pain in lower back pain and sternum improved Objective - Vital Signs Vital signs: Vital Signs Temp 97.8 F 03/27/23 11:57 Pulse 71 03/27/23 11:57 Resp 18 03/27/23 11:57 BP 104/53 03/27/23 11:57 Pulse Ox 92 L 03/27/23 15:35 FiO2 21 03/27/23 15:35 Intake & Output 03/27/23 03/27/23 03/28/23 06:59 18:59 06:59 Output Total 400 800 Balance -400 -800 Weight 78.7 kg 78.7 kg Output: Urine 400 800 Other: Voiding Method External Catheter External Catheter # Voids 2 1 # Bowel Movements 1 - Constitutional General appearance: Present: no acute distress - EENT Eyes: Present: anicteric sclerae, EOMI ENT: Present: hearing grossly normal - Respiratory Details: breathing is even and unlabored - Cardiovascular Details: skin warm and dry - Gastrointestinal General gastrointestinal: Present: soft. Absent: tenderness - Musculoskeletal Musculoskeletal: Present: generalized weakness - Psychiatric Psychiatric: Present: A&O x's 3 - Labs CBC & Chem 7: 03/26/23 07:01 03/26/23 07:01 Labs: Abnormal Lab Results - Last 24 Hours (Table) 03/27/23 03/27/23 Range/Units 11:56 21:08 POC Glucose (mg/dL) 118 H 111 H (70-110) mg/dL Microbiology - Last 24 Hours (Table) 03/26/23 11:40 Gram Stain - Preliminary Foot - Right Wound Culture - Preliminary Martine albicans 03/26/23 15:40 Gram Stain - Preliminary Foot - Right Assessment and Plan (1) Diabetic foot ulcer Current Visit: Yes Status: Acute Priority: High Code(s): E11.621 - TYPE 2 DIABETES MELLITUS WITH FOOT ULCER; L97.509 - NON-PRESSURE CHRONIC ULCER OTH PRT UNSP FOOT W UNSP SEVERITY SNOMED Code(s): 259018199 (2) Uncontrolled diabetes mellitus Current Visit: Yes Status: Acute Priority: High Code(s): WTL7726 - SNOMED Code(s): 65406117 (3) Malignant neoplasm of prostate Current Visit: Yes Status: Acute Priority: High Code(s): C61 - MALIGNANT NEOPLASM OF PROSTATE SNOMED Code(s): 075273171 (4) Anemia Current Visit: Yes Status: Acute Priority: Medium Code(s): D64.9 - ANEMIA, UNSPECIFIED SNOMED Code(s): 708921569 Plan: Metastatic prostate cancer: -The patient has been having some progressive weakness, fall the reports new areas of bone pain. Most recent CT scans did not appear to show any definite evidence of progression. - PSA in clinc 11/2022, 1.30. PSA now 10.7, concerning for progression of disease - Bone scan ordered to evaluate for metastatic progression. Scan revealed suspected widespread small areas of osseous metastases, with faint abnormal uptake involving the posterior left rib cage. Faint abnormal uptake involving the thoracic and upper lumbar spine. Intense abnormal uptake of the right iliac bone. -Consult placed to rad onc. Spoke with Dr. Rene regarding case, will plan to evaluate pt tomorrow. No plan for XRT at this time -Will hold nubeqa for now. Clinic f/u with Dr. Moran will be schedule upon discharge Spoke with patient about above POC and he is agreeable Anemia: -The patient's baseline hemoglobin is in the 10 range, and his current level is at 8-9 range. -Anemia workup negative, this is likely due to inflammatory suppression, from his nonhealing wounds, and ongoing antibiotic therapy -Will continue to monitor, please transfuse for hgb less than 7 or if symptomatic Attests: I have seen and examined pt, performed H&P, developed impression and plan of care. Discussed with dictator. Agree with documentation, dictated as a scribe.
--- NOTE | 2023-03-27 21:51 | P.PN ---
Subjective Progress Note Date: 03/27/23 Patient was seen for a follow-up. Patient is laying in the bed, fully alert and awake. Denies any headache. Patient complains of having neuropathy in his hands. Patient complains of some soreness in the low back from the fall. Objective - Vital Signs Vital signs: Vital Signs Temp 98.6 F 03/27/23 07:05 Pulse 78 03/27/23 07:05 Resp 18 03/27/23 07:05 BP 119/61 03/27/23 07:05 Pulse Ox 94 L 03/27/23 07:05 FiO2 Intake & Output 03/26/23 03/27/23 03/27/23 18:59 06:59 18:59 Intake Total 360 Output Total 700 400 Balance -340 -400 Weight 78.562 kg 78.7 kg Intake: Oral 360 Output: Urine 700 400 Other: Voiding Method External Catheter External Catheter # Voids 2 1 # Bowel Movements 1 - Exam Patient is alert and awake, fully oriented. Patient states it is 03/26/2023, although it is now 03/27/2023. He knows is in [facility] in [facility]. Speech and language functions are normal. Cranial nerves are normal. Muscle strength is normal. No ataxia. The myoclonic jerks of outstretched hands have completely resolved. - Labs CBC & Chem 7: 03/26/23 07:01 03/26/23 07:01 Labs: Abnormal Lab Results - Last 24 Hours (Table) 03/26/23 03/26/23 03/26/23 Range/Units 07:01 07:01 11:48 RBC 3.08 L (4.40-5.60) X 10*6/uL Hgb 8.3 L (13.0-17.0) g/dL Hct 27.3 L (39.6-50.0) % MCH 26.9 L (27.0-32.0) pg MCHC 30.4 L (32.0-37.0) g/dL RDW 15.2 H (11.5-14.5) % Lymphocytes # 0.62 L (0.90-5.00) X 10*3/uL Glucose 63 L (70-110) mg/dL POC Glucose (mg/dL) 175 H (70-110) mg/dL Calcium 7.8 L (8.7-10.3) mg/dL Alkaline Phosphatase 133 H (41-126) U/L Total Protein 5.4 L (6.2-8.2) g/dL Albumin 2.6 L (3.8-4.9) g/dL Albumin/Globulin Ratio 0.93 L (1.60-3.17) Ratio 03/26/23 Range/Units 17:18 RBC (4.40-5.60) X 10*6/uL Hgb (13.0-17.0) g/dL Hct (39.6-50.0) % MCH (27.0-32.0) pg MCHC (32.0-37.0) g/dL RDW (11.5-14.5) % Lymphocytes # (0.90-5.00) X 10*3/uL Glucose (70-110) mg/dL POC Glucose (mg/dL) 174 H (70-110) mg/dL Calcium (8.7-10.3) mg/dL Alkaline Phosphatase (41-126) U/L Total Protein (6.2-8.2) g/dL Albumin (3.8-4.9) g/dL Albumin/Globulin Ratio (1.60-3.17) Ratio Microbiology - Last 24 Hours (Table) 03/26/23 11:40 Gram Stain - Preliminary Foot - Right Assessment and Plan Assessment: * Altered mental status, likely due to toxic metabolic encephalopathy. Reasons multifactorial as mentioned below. Encephalopathy much better. * Diabetes, uncontrolled * Diabetic foot ulcer, with Charcot joints * Metastatic prostate cancer, with bony metastasis * Foot osteomyelitis, right * Anemia * Hypoxemia * Status post recent cholecystectomy * Hypertension * Peripheral neuropathy * Hyperlipidemia * PAD * CAD * History of CVA * History of transitional cell carcinoma with history of left nephrectomy Plan: * Patient's mentation today appears much better. He is fully oriented. He denies any headache, and examination is non-focal. * Discussed with patient's daughter and Dr. Adame on the phone. She concurred that patient has improved a lot. She agreed on holding off on any brain imaging at this time, as patient is showing clinical improvement. * Treatment of various medical conditions as per IM and other specialties. * Limit amount of opiates/narcotics, sedatives. * B12 1009, folate 12.3, methylmalonic acid normal 0.24 * Dr. Suarez will be covering neurology service over the weekend and Dr. Miramontes starting from Thursday.
[2023-03-28] MEDS: HYDROmorphone 0.5 MG/0.5 ML SYRINGE IVP PRN ×3 (02:29→16:37)
[2023-03-28] MEDS: SODIUM CHLORIDE 0.9% 1,000 ML IV SCH (06:43)
[2023-03-28 08:07] LABS: Glucose,Whole Blood 86 mg/dL (70-110)
[2023-03-28] MEDS: metroNIDAZOLE 500 MG TAB PO SCH ×3 (08:58→21:38)
[2023-03-28] MEDS: MAGNESIUM OXIDE 400 MG TAB PO SCH (08:58)
[2023-03-28] MEDS: POTASSIUM CHLORIDE ER 20 MEQ TAB.ER PO SCH ×2 (08:58→21:38)
[2023-03-28] MEDS: FAMOTIDINE 20 MG TAB PO SCH ×2 (08:58→21:38)
[2023-03-28] MEDS: DAPTOmycin 500 MG in SODIUM CHLORIDE 0.9% 50 ML IVPB SCH (08:58)
[2023-03-28] MEDS: HEPARIN SODIUM,PORCINE 5,000 UNIT/ML 1 ML VIAL SQ SCH ×2 (08:58→21:39)
[2023-03-28] MEDS: ASPIRIN 81 MG PO SCH (08:58)
[2023-03-28] MEDS: carvediloL 3.125 MG TAB PO SCH ×2 (08:58→16:54)
[2023-03-28] MEDS: CLOPIDOGREL 75 MG TAB PO SCH (08:58)
[2023-03-28] MEDS: GABAPENTIN 300 MG CAP PO SCH ×3 (08:58→21:38)
[2023-03-28] MEDS: NYSTATIN 100,000 UNIT/GM POWD 15 GM TOPICAL SCH ×2 (08:59→21:40)
[2023-03-28] MEDS: glipiZIDE 10 MG TAB PO SCH ×2 (08:59→16:54)
[2023-03-28] MEDS: INSULIN ASPART (NovoLOG) 100 UNIT/ML VIAL SQ SCH ×4 (08:59→21:38)
[2023-03-28] MEDS: ERTAPENEM 1 GM in SODIUM CHLORIDE 0.9% 50 ML IVPB SCH (09:32)
[2023-03-28 09:40] LABS: Basophils % (A) 0 %; Eosinophils # (A) 0.2 k/uL (0-0.7); Eosinophils % (A) 3 %; HCT 26.7 % (39.0-53.0); HGB 8.3 gm/dL (13.0-17.5); Hypochromasia Marked; Lymphocytes # (A) 0.8 k/uL (1.0-4.8); Lymphocytes % (A) 14 %; MCH 27.5 pg (25.0-35.0); MCHC 30.9 g/dL (31.0-37.0); Monocytes # (A) 0.3 k/uL (0-1.0); Monocytes % (A) 6 %; Neutrophils # (A) 4.1 k/uL (1.3-7.7); Neutrophils % (A) 75 %; Platelet Count 216 k/uL (150-450); Poikilocytosis Slight; RDW 15.7 % (11.5-15.5); WBC 5.5 k/uL (3.8-10.6)
[2023-03-28 10:40] LABS: ALT 14 U/L (4-49); AST 21 U/L (17-59); African American GFR (CKD) 88 (>60 ml/min/1.73 sqM); Albumin 2.6 g/dL (3.5-5.0); Albumin/Globulin Ratio 0.9; Anion Gap 8 mmol/L; Blood Urea Nitrogen 12 mg/dL (9-20); Calcium 8.4 mg/dL (8.4-10.2); Carbon Dioxide 25 mmol/L (22-30); Chloride 103 mmol/L (98-107); Glucose 57 mg/dL (74-99); Non-African American GFR(CKD) 76 (>60 ml/min/1.73 sqM); Potassium 5.3 mmol/L (3.5-5.1); Sodium 136 mmol/L (137-145); Total Bilirubin 0.4 mg/dL (0.2-1.3); Total Protein 5.6 g/dL (6.3-8.2)
[2023-03-28 10:41] LABS: Alkaline Phosphatase 150 U/L (38-126)
--- NOTE | 2023-03-28 11:21 | P.PN ---
Subjective Progress Note Date: 03/28/23 I am seeing this patient in new consultation today 03/23/2023 in the intensive care unit after he was transferred yesterday evening for hypotension and suspected sepsis. 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 Patient also recently underwent cholecystectomy for acute ascending cholangitis earlier this month at an outside facility. Following the procedure there were reportedly some diabetic medication changes. Patient presented to the emergency room back on 03/20/2023 chiefly with the complaints of generalized weakness and high blood sugars. He also may have fell in the bathroom hitting his back, he was complaining of severe lower back pain on arrival. Currently, the patient is lethargic and confused, and most of this information is supplemented from the chart. He was receiving IV vancomycin outpatient for ongoing osteomyelitis of the right foot. He does have chronic wounds on bilateral feet. He is currently receiving IV antibiotics in the form of daptomycin, cefepime, and Flagyl per infectious disease. Patient does have a fluctuant lower back mass. Ultrasound of this area demonstrates a heterogenous indeterminate lesion which could represent hematoma. CT of the lower back demonstrated sclerotic lesions throughout the visualized osseous structures suggesting osseous metastatic disease. There was mild multilevel degenerative disc disease. No vertebral compression collapse or acute fracture seen. No large focal disc herniation or landen canal compromise seen. Patient does have active prostate cancer was on Nubeqa outpatient. As far as the patient's blood sugars, they're better controlled, on sliding scale insulin. Most recent BMP from yesterday shows a sodium 136, potassium 3.6, chloride 101, serum bicarb 26, BUN 13, creatinine 0.93, glucose 104. Most recent CBC from yesterday shows a WBC count of 7.4, hemoglobin 9, hematocrit 29.9, platelets 224. Apparently, the patient was hypotensive and confused earlier yesterday after noon, and was transferred to the intensive care unit. He is receiving multiple narcotics for pain management around the clock. Brain CT did not show any acute intracranial process. ABG showed a pO2 of 55, pCO2 41, pH of 7.48. This was done on room air. Patient is currently resting comfortably on 2 L/m nasal cannula. D-dimer was elevated at 1.75, the patient is undergoing chest CTA. Clinical suspicion for pulmonary embolism is low. Troponins were mildly elevated at 0.841. Echocardiogram done this admission showed a mildly impaired left ventricular ejection fraction of 40% and mild-moderate mitral regurgitation. Chest x-ray at that time showed low lung volumes with generalized haziness joselin earance which could represent atelectasis versus pulmonary edema. Blood pressure is currently normotensive, not requiring any pressors. I do not see any record recorded hypotensive blood pressures. Heart rhythm appears normal sinus. Currently afebrile. Blood and wound cultures are pending. Overall prognosis is guarded, will continue to monitor in the intensive care unit. The patient is seen today 03/24/2023 in follow-up on the regular medical floor. He is currently resting in bed. Awake and alert in no acute distress. He is maintaining O2 saturations in the 90s on room air. He has normal saline at 50 MLS per hour. He is continued on cefepime and daptomycin. He has a dressing to the right foot ulceration. CT angiogram ruled out pulmonary embolism. There is findings consistent with bronchitis with pneumonitis and lower lobes and a tiny consolidation in the right lung base. Multiple sclerotic lesions demonstrated in the thoracic spine concerning for metastatic disease. Bone scan reveals intense abnormal uptake involving the right foot most likely on the basis of Charcot joint. Suspect abnormal uptake overlying the left lower pelvis is artifactual. Faint abnormal uptake involving the posterior left rib cage suspicious for metastasis. Faint abnormal uptake in following the thoracic and upper lumbar spine. Suspicion for early metastasis with intense abnormal uptake in the right iliac bone. Suspect widespread small areas of osseous metastasis. The patient had sustained a fall last evening and a computed tomography scan of the brain and C-spine revealed no acute fracture of subluxation of the cervical spine. No intracranial hemorrhage. No midline shift or mass effect. Right foot wound cultures positive for Martine. Left first toe positive for Martine. White count 7.4. Hemoglobin 8.1. Platelets 211. Sodium 137. Potassium 4.4. Bicarb 25. UN 14. Creatinine 0.9. Glucose 112. AST 32. ALT 14. Alk phos 141. He is continued on daptomycin, Flagyl and cefepime. The patient is seen today 03/25/2023 in follow-up on the regular medical floor. He is awake and alert in no acute distress. He is maintaining O2 saturations in the 90s on room air. He has normal saline at 50 MLS per hour. He is continued on cefepime, daptomycin and Flagyl. White count 6.6. Hemoglobin 7.8. Platelets 234. Sodium 138. Potassium 4.3. Bicarb 24. BUN 15. Creatinine 0.9. Glucose 144. AST 25. ALT 17. Alk phos 141. Wound cultures positive for Martine only. Normal saline at 50 MLS per hour. The patient is seen today 03/26/2023 in follow-up on the regular medical floor. He is sitting up in bed having breakfast. Awake and alert in no acute distress. Maintaining good O2 saturations in the 90s on room air. He's been afebrile. Hemodynamically stable. White count 7.4. Hemoglobin 8.3. Platelets 247. Glucose 101. The cultures revealed no growth. Wounds from the right and left toes were positive for Martine. He is currently on daptomycin and Flagyl per ID services. Normal saline at 50 MLS per hour. Heparin for DVT prophylaxis. The patient is seen today 03/27/2023 in follow-up on the regular medical floor. He is currently sitting up in a chair at the bedside. Awake and alert in no acute distress. He is maintaining good O2 saturations in the 90s on room air. Blood sugar 118. Wounds from the right and left toes were positive for Martine. He is continued on Invanz, daptomycin and Flagyl. Follow-up right foot wound cultures pending. He remains on oral diuretics. Heparin for DVT prophylaxis. Normal saline at 50 MLS per hour. The patient is seen today 03/28/2023 in follow-up on the regular medical floor. He is currently sitting up in bed. Awake and alert in no acute distress. Denies any worsening shortness of breath, cough or congestion. No fever or chills. Maintaining good O2 saturations in the 90s on room air. He has normal saline at 50 MLS per hour. He is continued on ertapenem, Flagyl, daptomycin. Plan is for PICC line placement and continued IV antibiotics post discharge. Heparin for DVT prophylaxis. White count 5.5. Hemoglobin 8.3. Platelets 216. Sodium 136. Potassium 5.5. Bicarb 25. BUN 12. Creatinine 1.01. Glucose 86. Objective - Vital Signs Vital signs: Vital Signs Temp 98.7 F 03/28/23 08:00 Pulse 71 03/28/23 08:00 Resp 18 03/28/23 08:00 BP 136/74 03/28/23 08:00 Pulse Ox 98 03/28/23 08:00 FiO2 21 03/27/23 15:35 Intake & Output 03/27/23 03/28/23 03/28/23 18:59 06:59 18:59 Output Total 800 300 Balance -800 -300 Weight 78.7 kg 79.5 kg Output: Urine 800 300 Other: Voiding Method External Catheter External Catheter # Voids 1 # Bowel Movements 1 - Exam GENERAL EXAM: Awake, alert 67-year-old male, resting in bed, on room air, in no apparent distress. HEAD: Normocephalic and atraumatic EYES: Normal reaction of pupils, equal size. NOSE: Clear with pink turbinates. THROAT: No erythema or exudates. NECK: No masses, no JVD. CHEST: No chest wall deformity. LUNGS: Equal air entry with minimal bibasilar inspiratory crackles. No wheezes, rhonchi, dullness. No conversational dyspnea. CVS: S1 and S2 normal with grade 1 systolic murmur, regular rhythm. No extra heart sounds ABDOMEN: No hepatosplenomegaly, active bowel sounds, no guarding or rigidity. SPINE: No scoliosis or deformity. There is a left lateral fluctuant mass SKIN: Right plantar foot wound measuring approximately 5 x 5 cm, with granu lation tissue and mild amounts of sloughing. Left great toe wound measuring approximately 2 x 2 centimeters. CENTRAL NERVOUS SYSTEM: Able to follow simple commands. No focal deficits, tone is normal in all 4 extremities. EXTREMITIES: There is no peripheral edema, clubbing, or cyanosis. Peripheral pulses are intact. - Labs CBC & Chem 7: 03/28/23 07:16 03/28/23 07:16 Labs: Abnormal Lab Results - Last 24 Hours (Table) 03/27/23 03/27/23 03/28/23 Range/Units 11:56 21:08 07:16 RBC 3.00 L (4.30-5.90) m/uL Hgb 8.3 L (13.0-17.5) gm/dL Hct 26.7 L (39.0-53.0) % MCHC 30.9 L (31.0-37.0) g/dL RDW 15.7 H (11.5-15.5) % Lymphocytes # 0.8 L (1.0-4.8) k/uL Sodium (137-145) mmol/L Potassium (3.5-5.1) mmol/L Glucose (74-99) mg/dL POC Glucose (mg/dL) 118 H 111 H (70-110) mg/dL Alkaline Phosphatase (38-126) U/L Total Protein (6.3-8.2) g/dL Albumin (3.5-5.0) g/dL 03/28/23 Range/Units 07:16 RBC (4.30-5.90) m/uL Hgb (13.0-17.5) gm/dL Hct (39.0-53.0) % MCHC (31.0-37.0) g/dL RDW (11.5-15.5) % Lymphocytes # (1.0-4.8) k/uL Sodium 136 L (137-145) mmol/L Potassium 5.3 H (3.5-5.1) mmol/L Glucose 57 L (74-99) mg/dL POC Glucose (mg/dL) (70-110) mg/dL Alkaline Phosphatase 150 H (38-126) U/L Total Protein 5.6 L (6.3-8.2) g/dL Albumin 2.6 L (3.5-5.0) g/dL Microbiology - Last 24 Hours (Table) 03/26/23 11:40 Gram Stain - Preliminary Foot - Right Wound Culture - Preliminary Martine albicans 03/26/23 15:40 Gram Stain - Preliminary Foot - Right Assessment and Plan Assessment: Acute hypoxemic respiratory failure, possibly related to mild exacerbation of systolic congestive heart failure. Chest x-ray showed low lung volumes with generalized hazy appearance which could represent atelectasis versus pulmonary edema. No focal infiltrates or evidence of pneumonia. Recovered and on room air Hypotension and suspected sepsis, improved, not requiring vasopressors. Recovered Hyperglycemia, improved, on NovoLog sliding scale insulin Altered mental status, possibly related to metabolic encephalopathy, secondary to above. Improved Chronic osteomyelitis of the right foot, currently on antibiotics per infectious disease Bilateral foot wounds Prostate cancer, maintained on Nubeqa outpatient Lower back pain, with suspected metastatic disease. CT of the lower back demonstrated sclerotic lesions throughout the visualized osseous structures suggesting osseous metastatic disease. There was mild multilevel degenerative disc disease. No vertebral compression collapse or acute fracture seen. No large focal disc herniation or landen canal compromise seen. CT angiogram ruled out pulmonary embolism. There is findings consistent with bronchitis with pneumonitis and lower lobes and a tiny consolidation in the right lung base. Multiple sclerotic lesions demonstrated in the thoracic spine concerning for metastatic disease. Bone scan reveals intense abnormal uptake involving the right foot most likely on the basis of Charcot joint. Suspect abnormal uptake overlying the left lower pelvis is artifactual. Faint abnormal uptake involving the posterior left rib cage suspicious for metastasis. Faint abnormal uptake in following the thoracic and upper lumbar spine. Suspicion for early metastasis with intense abnormal uptake in the right iliac bone. Suspect widespread small areas of osseous metastasis. Fall on 03/23/2023. Computed tomography scan of the brain and C-spine ruled out fracture. No acute intracranial abnormality Lumbar mass, ultrasound of this area demonstrates a heterogenous indeterminate lesion which could represent hematoma Uncontrolled [id number] diabetes mellitus, with diabetic foot ulcers Coronary artery disease with previous CABG Hyperlipidemia History of hypertension History of CVA/TIA History of PVD with previous bilateral iliac stents Recent history of cholecystectomy History of previous left nephrectomy related to transitional cell carcinoma Anemia of chronic disease Plan: The patient was seen and evaluated Labs and medications reviewed Currently stable and on room air Continue the current treatment plan Increase his activity as tolerated We will continue to follow This patient was seen independently by the nurse practitioner I have personally seen and examined the patient, performed the documentation and the assessment and plan as written. Number of minutes spent on the visit: 23.
--- NOTE | 2023-03-28 12:11 | PN ---
PROGRESS NOTE SUBJECTIVE: This patient has a Charcot foot and wound on his plantar aspect of the right foot. The patient developed a large abscess on the dorsal aspect of the foot treated with I and D. Culture is pending, preliminary report came as a Martine albicans. The patient is on IV antibiotic under care of Infectious Disease. Today we have changed the dressing. Drainage is less. We irrigated the wound with excess silver, next dressing will be changed on Thursday. MMODL / IJN: [id number] /
[2023-03-28 12:12] LABS: Glucose,Whole Blood 115 mg/dL (70-110)
--- NOTE | 2023-03-28 12:43 | P.PN ---
Subjective Progress Note Date: 03/28/23 Aba dunn is 67 year old male patient who presented to the ER with concerns of generalized weakness. Patient had a recent lap sandra at [facility]. Patient reports that he has not been on his diabetic medication following lap sandra when EMS arrived they found elevated blood sugars greater than 600. Patient has been maintained on IV antibiotic vancomycin for right foot diabetic ulcers. Patient denies fevers at home. Additional medical history includes CAD, chest pain, CVA, diabetes mellitus, GI bleed, hyperlipidemia, hypertension, LA, prostate disorder, renal disease, sleep apnea, non-Hodgkin's lymphoma, heart cath with stent. Chest x-ray completed showing slightly prominent interstitial markings. Hip x-ray completed showing no acute fracture or dislocation. White blood cell 9.0 initial blood sugars greater than 600 patient was started on insulin drip. UA negative for ketones. Patient was resumed back on vancomycin. Troponin elevated 0.2-3 will order serial troponins and cardiac monitoring cardiology service is consulted. Vascular surgery and infectious disease service is consulted blood culture ordered. Repeat labs ordered. At this time patient is resting comfortably bed patient reports improvement with symptoms. Patient denies chest pain or shortness of breath. Patient denies nausea vomiting or diarrhea. Patient denies any urinary burning or frequency On 03/21/2023 patient was seen and examined on the medical floor he is alert and oriented 3, he is complaining of severe back pain that he rates at 10 out of 10, he states that he fell yesterday and hit his back, x-ray of the lumbar spine was done yesterday in the emergency room, and did not reveal any fracture, however it revealed diffuse sclerotic bone lesions, suggestive of metastatic disease, at this time will check PSA and consult oncology in that regard. Patient is also having significant drop in hemoglobin since yesterday, will check stools for occult blood, will check iron panel vitamin B12 and folate level, will follow closely. On 03/22/2023 patient is alert and oriented 3 patient is currently resting in bed. Oncology services are following bone scan ordered along with multiple lab values. Patient remains on IV daptomycin and Maxipime. Current vital signs temp 98.8, heart rate 77, respiratory rate 17, blood pressure 127/67 pulse with a pulse ox of 99% on room air On 03/23/2023 patient was seen and examined in the ICU, he is alert and more oriented today, yesterday he had severe confusion and mental status changes, computed tomography scan of the brain was done and there was no evidence of intracranial bleeding, ammonia level was normal, his mental status changes could be related to pain medications. Patient was transferred to ICU and monitored closely, arterial blood gas was done, critical care consult was requested. Today patient is feeling better he is more alert and oriented, he was cleared for transfer back to the floor. He underwent bone scan to assess possible metastatic bone disease, oncology are following Patient remains on IV cefepime and IV daptomycin, infectious disease following. On 03/24/2023 patient has been transferred to medical floor. Patient is alert. Patient remains on IV antibiotics. Current vital signs temp 97.5, 70, respiratory rate 17, blood pressure 125/66 on room air 99%. Oncology cardiology and critical care service is following. On 03/25/2023 patient is alert and oriented with intermittent episodes of con fusion and forgetfulness. Consult placed for radiation per oncology services. PT OT service is consulted. Patient remains on IV antibiotics daptomycin Maxipime and oral flagyl. Oncology, infectious disease, pulmonary and neurology services are all following. Current vital signs temp 97.4, heart rate 59, respiratory rate 16, blood pressure 121/67 with a pulse ox of 99% on room air. On 03/26/2023 patient was seen and examined on the medical floor, he is alert and oriented 3 in no apparent distress, he is complaining of pain in his right foot, he underwent debridement at the bedside by Dr. Knapp today, otherwise he denies any complaints there is no fever or chills no headache or dizziness no chest pain no shortness of breath no cough no nausea or vomiting no abdominal pain no diarrhea and no urinary symptoms On 03/27/2023 patient is alert and oriented 3. IV antibiotics adjusted to IV Invanz and daptomycin. Wound cultures obtained. Will consult social work services to initiate discharge planning. Current vital signs temp 98.9, pulse rate 72, respirator rate 18, blood pressure 122/63 with pulse ox 97% on room air On 03/28/2023 patient was seen and examined on the medical floor he is alert and oriented 3 in no apparent distress he is still complaining of pain in the right foot area otherwise he denies any complaints there is no fever or chills no headache or dizziness no chest pain no shortness of breath no cough no nausea or vomiting no abdominal pain no diarrhea and no urinary symptoms. Case was discussed with Dr. Knapp and Dr. Landeros plan is for home on Thursday with outpatient IV antibiotics and follow up at the wound care clinic. Objective - Vital Signs Vital signs: Vital Signs Temp 98.7 F 03/28/23 08:00 Pulse 71 03/28/23 08:00 Resp 18 03/28/23 08:00 BP 136/74 03/28/23 08:00 Pulse Ox 98 03/28/23 08:00 FiO2 21 03/27/23 15:35 Intake & Output 03/27/23 03/28/23 03/28/23 18:59 06:59 18:59 Output Total 800 300 Balance -800 -300 Weight 78.7 kg 79.5 kg Output: Urine 800 300 Other: Voiding Method External Catheter External Catheter # Voids 1 # Bowel Movements 1 - Exam In general patient is alert and oriented x 3 in no distress HEENT head normocephalic and atraumatic Neck is supple no JVD no goiter no lymphadenopathy no carotid bruit Chest examination is clear to auscultation no crackles no wheezing Cardiac exam reveals regular heart sounds S1 and S2 no gallops no murmurs Abdomen is soft nontender no organomegaly with normal bowel sounds Extremity exam reveals minimal swelling, with bilateral wounds involving the feet and the toes Neurological examination reveals no gross focal deficits - Labs CBC & Chem 7: 03/28/23 07:16 03/28/23 07:16 Labs: Abnormal Lab Results - Last 24 Hours (Table) 03/27/23 03/28/23 03/28/23 Range/Units 21:08 07:16 07:16 RBC 3.00 L (4.30-5.90) m/uL Hgb 8.3 L (13.0-17.5) gm/dL Hct 26.7 L (39.0-53.0) % MCHC 30.9 L (31.0-37.0) g/dL RDW 15.7 H (11.5-15.5) % Lymphocytes # 0.8 L (1.0-4.8) k/uL Sodium 136 L (137-145) mmol/L Potassium 5.3 H (3.5-5.1) mmol/L Glucose 57 L (74-99) mg/dL POC Glucose (mg/dL) 111 H (70-110) mg/dL Alkaline Phosphatase 150 H (38-126) U/L Total Protein 5.6 L (6.3-8.2) g/dL Albumin 2.6 L (3.5-5.0) g/dL 03/28/23 Range/Units 12:08 RBC (4.30-5.90) m/uL Hgb (13.0-17.5) gm/dL Hct (39.0-53.0) % MCHC (31.0-37.0) g/dL RDW (11.5-15.5) % Lymphocytes # (1.0-4.8) k/uL Sodium (137-145) mmol/L Potassium (3.5-5.1) mmol/L Glucose (74-99) mg/dL POC Glucose (mg/dL) 115 H (70-110) mg/dL Alkaline Phosphatase (38-126) U/L Total Protein (6.3-8.2) g/dL Albumin (3.5-5.0) g/dL Microbiology - Last 24 Hours (Table) 03/26/23 15:40 Gram Stain - Final Foot - Right Wound Culture - Final Martine albicans 03/26/23 11:40 Gram Stain - Final Foot - Right Wound Culture - Final Martine albicans Assessment and Plan Assessment: 1. Uncontrolled diabetes mellitus with hyperglycemia. 2. Recent laparoscopic cholecystectomy Analytarik Jeffery 3. Diabetic foot ulcers maintained on IV antibiotics 4. Metastatic prostate cancer. Bone scan revealed widespread small areas of osseous metastatic disease. Consult placed for radiology oncology 5. Elevated troponin 6. underlying history of [id number] diabetes mellitus 7. Underlying history of essential hypertension 8. History of neuropathy 9. History of hyperlipidemia 10. History of peripheral vascular disease 11. History of coronary artery disease with history of myocardial infarction 12. History of GI bleeding 13. History of CVA 14. 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 Altered mental status likely due to toxic metabolic encephalopathy. Neurology services are following DVT prophylaxis heparin. GI prophylaxis Protonix oncology, infectious disease, cardiology, critical care and neurology services following remains on IV antibiotics PT OT service is consulted Status post surgical debridement on 03/26/2023 Social work services consulted
[2023-03-28] MEDS: oxyCODONE-APAP 10-325MG 1 EACH TAB PO PRN (13:17)
[2023-03-28 17:42] LABS: Glucose,Whole Blood 164 mg/dL (70-110)
[2023-03-28 20:44] LABS: Glucose,Whole Blood 159 mg/dL (70-110)
[2023-03-29] MEDS: oxyCODONE-APAP 10-325MG 1 EACH TAB PO PRN ×2 (00:01→20:44)
[2023-03-29] MEDS: HYDROmorphone 0.5 MG/0.5 ML SYRINGE IVP PRN (01:10)
[2023-03-29] MEDS: SODIUM CHLORIDE 0.9% 1,000 ML IV SCH ×2 (01:12→19:34)
[2023-03-29 07:16] LABS: Glucose,Whole Blood 247 mg/dL (70-110)
[2023-03-29] MEDS: POTASSIUM CHLORIDE ER 20 MEQ TAB.ER PO SCH ×2 (08:34→20:44)
[2023-03-29] MEDS: FAMOTIDINE 20 MG TAB PO SCH ×2 (08:34→20:44)
[2023-03-29] MEDS: ASPIRIN 81 MG PO SCH (08:34)
[2023-03-29] MEDS: GABAPENTIN 300 MG CAP PO SCH ×3 (08:34→20:44)
[2023-03-29] MEDS: INSULIN ASPART (NovoLOG) 100 UNIT/ML VIAL SQ SCH ×4 (08:35→20:45)
[2023-03-29] MEDS: NYSTATIN 100,000 UNIT/GM POWD 15 GM TOPICAL SCH ×2 (08:35→20:45)
[2023-03-29] MEDS: HEPARIN SODIUM,PORCINE 5,000 UNIT/ML 1 ML VIAL SQ SCH ×2 (08:35→20:45)
[2023-03-29] MEDS: carvediloL 3.125 MG TAB PO SCH ×2 (08:35→17:42)
[2023-03-29] MEDS: MAGNESIUM OXIDE 400 MG TAB PO SCH (08:35)
[2023-03-29] MEDS: metroNIDAZOLE 500 MG TAB PO SCH ×3 (08:35→20:44)
[2023-03-29] MEDS: CLOPIDOGREL 75 MG TAB PO SCH (08:35)
[2023-03-29] MEDS: glipiZIDE 10 MG TAB PO SCH ×2 (08:35→17:42)
[2023-03-29] MEDS: ERTAPENEM 1 GM in SODIUM CHLORIDE 0.9% 50 ML IVPB SCH (08:36)
[2023-03-29] MEDS: DAPTOmycin 500 MG in SODIUM CHLORIDE 0.9% 50 ML IVPB SCH (09:19)
--- NOTE | 2023-03-29 10:49 | P.PN ---
Subjective Progress Note Date: 03/29/23 Aba dunn is 67 year old male patient who presented to the ER with concerns of generalized weakness. Patient had a recent lap sandra at [facility]. Patient reports that he has not been on his diabetic medication following lap sandra when EMS arrived they found elevated blood sugars greater than 600. Patient has been maintained on IV antibiotic vancomycin for right foot diabetic ulcers. Patient denies fevers at home. Additional medical history includes CAD, chest pain, CVA, diabetes mellitus, GI bleed, hyperlipidemia, hypertension, ME, prostate disorder, renal disease, sleep apnea, non-Hodgkin's lymphoma, heart cath with stent. Chest x-ray completed showing slightly prominent interstitial markings. Hip x-ray completed showing no acute fracture or dislocation. White blood cell 9.0 initial blood sugars greater than 600 patient was started on insulin drip. UA negative for ketones. Patient was resumed back on vancomycin. Troponin elevated 0.2-3 will order serial troponins and cardiac monitoring cardiology service is consulted. Vascular surgery and infectious disease service is consulted blood culture ordered. Repeat labs ordered. At this time patient is resting comfortably bed patient reports improvement with symptoms. Patient denies chest pain or shortness of breath. Patient denies nausea vomiting or diarrhea. Patient denies any urinary burning or frequency On 03/21/2023 patient was seen and examined on the medical floor he is alert and oriented 3, he is complaining of severe back pain that he rates at 10 out of 10, he states that he fell yesterday and hit his back, x-ray of the lumbar spine was done yesterday in the emergency room, and did not reveal any fracture, however it revealed diffuse sclerotic bone lesions, suggestive of metastatic d isease, at this time will check PSA and consult oncology in that regard. Patient is also having significant drop in hemoglobin since yesterday, will check stools for occult blood, will check iron panel vitamin B12 and folate level, will follow closely. On 03/22/2023 patient is alert and oriented 3 patient is currently resting in bed. Oncology services are following bone scan ordered along with multiple lab values. Patient remains on IV daptomycin and Maxipime. Current vital signs temp 98.8, heart rate 77, respiratory rate 17, blood pressure 127/67 pulse with a pulse ox of 99% on room air On 03/23/2023 patient was seen and examined in the ICU, he is alert and more oriented today, yesterday he had severe confusion and mental status changes, computed tomography scan of the brain was done and there was no evidence of intracranial bleeding, ammonia level was normal, his mental status changes could be related to pain medications. Patient was transferred to ICU and monitored closely, arterial blood gas was done, critical care consult was requested. Today patient is feeling better he is more alert and oriented, he was cleared for transfer back to the floor. He underwent bone scan to assess possible metastatic bone disease, oncology are following Patient remains on IV cefepime and IV daptomycin, infectious disease following. On 03/24/2023 patient has been transferred to medical floor. Patient is alert. Patient remains on IV antibiotics. Current vital signs temp 97.5, 70, r espiratory rate 17, blood pressure 125/66 on room air 99%. Oncology cardiology and critical care service is following. On 03/25/2023 patient is alert and oriented with intermittent episodes of conf usion and forgetfulness. Consult placed for radiation per oncology services. PT OT service is consulted. Patient remains on IV antibiotics daptomycin Maxipime and oral flagyl. Oncology, infectious disease, pulmonary and neurology services are all following. Current vital signs temp 97.4, heart rate 59, respiratory rate 16, blood pressure 121/67 with a pulse ox of 99% on room air. On 03/26/2023 patient was seen and examined on the medical floor, he is alert and oriented 3 in no apparent distress, he is complaining of pain in his right foot, he underwent debridement at the bedside by Dr. Knapp today, otherwise he denies any complaints there is no fever or chills no headache or dizziness no chest pain no shortness of breath no cough no nausea or vomiting no abdominal pain no diarrhea and no urinary symptoms On 03/27/2023 patient is alert and oriented 3. IV antibiotics adjusted to IV Invanz and daptomycin. Wound cultures obtained. Will consult social work services to initiate discharge planning. Current vital signs temp 98.9, pulse rate 72, respirator rate 18, blood pressure 122/63 with pulse ox 97% on room air On 03/28/2023 patient was seen and examined on the medical floor he is alert and oriented 3 in no apparent distress he is still complaining of pain in the right foot area otherwise he denies any complaints there is no fever or chills no headache or dizziness no chest pain no shortness of breath no cough no nausea or vomiting no abdominal pain no diarrhea and no urinary symptoms. Case was discussed with Dr. Knapp and Dr. Landeros plan is for home on Thursday with outpatient IV antibiotics and follow up at the wound care clinic. On 03/29/2023 patient is alert and oriented 3. Patient actually pulled out PICC line. Order for a new PICC line. Anticipate possible discharge home tomorrow with IV antibiotics. Mentation significantly improved. Current vital signs temp 98.5, heart rate 67, respiratory rate 17, blood pressure 116/70 with a pulse ox of 98% on room air Objective - Vital Signs Vital signs: Vital Signs Temp 98.5 F 03/29/23 07:12 Pulse 67 03/29/23 07:12 Resp 17 03/29/23 07:12 BP 116/70 03/29/23 07:12 Pulse Ox 98 03/29/23 07:12 FiO2 21 03/27/23 15:35 Intake & Output 03/28/23 03/29/23 03/29/23 18:59 06:59 18:59 Intake Total 1080 827 Output Total 900 600 Balance 180 227 Weight 80 kg Intake: Oral 1080 827 Output: Urine 900 600 Other: Voiding Method External Catheter # Voids 1 1 # Bowel Movements 1 1 - Exam In general patient is alert and oriented x 3 in no distress HEENT head normocephalic and atraumatic Neck is supple no JVD no goiter no lymphadenopathy no carotid bruit Chest examination is clear to auscultation no crackles no wheezing Cardiac exam reveals regular heart sounds S1 and S2 no gallops no murmurs Abdomen is soft nontender no organomegaly with normal bowel sounds Extremity exam reveals minimal swelling, with bilateral wounds involving the feet and the toes Neurological examination reveals no gross focal deficits - Labs CBC & Chem 7: 03/28/23 07:16 03/28/23 07:16 Labs: Abnormal Lab Results - Last 24 Hours (Table) 03/28/23 03/28/23 03/28/23 Range/Units 12:08 17:35 20:40 POC Glucose (mg/dL) 115 H 164 H 159 H (70-110) mg/dL 03/29/23 Range/Units 07:15 POC Glucose (mg/dL) 247 H (70-110) mg/dL Microbiology - Last 24 Hours (Table) 03/26/23 15:40 Anaerobic Culture - Preliminary Foot - Right 03/26/23 11:40 Anaerobic Culture - Preliminary Heel - Right 03/26/23 15:40 Gram Stain - Final Foot - Right Wound Culture - Final Martine albicans 03/26/23 11:40 Gram Stain - Final Foot - Right Wound Culture - Final Martine albicans Assessment and Plan Assessment: 1. Uncontrolled diabetes mellitus with hyperglycemia. 2. Recent laparoscopic cholecystectomy Analy Jeffery 3. Diabetic foot ulcers maintained on IV antibiotics 4. Generalized weakness 5. Elevated troponin 6. underlying history of [id number] diabetes mellitus 7. Underlying history of essential hypertension 8. History of neuropathy 9. History of hyperlipidemia 10. History of peripheral vascular disease 11. History of coronary artery disease with history of myocardial infarction 12. History of GI bleeding 13. History of CVA 14. 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 Sclerotic lesions seen on CT lumbar spine. Oncology service is following. Bone scan ordered DVT prophylaxis heparin. GI prophylaxis Protonix Cardiology service is consulted for elevated troponin, repeat troponin ordered Infectious disease and vascular surgery consulted Patient remains on IV antibiotics Blood cultures ordered
--- NOTE | 2023-03-29 11:32 | P.PN ---
Subjective Progress Note Date: 03/29/23 I am seeing this patient in new consultation today 03/23/2023 in the intensive care unit after he was transferred yesterday evening for hypotension and suspected sepsis. 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 Patient also recently underwent cholecystectomy for acute ascending cholangitis earlier this month at an outside facility. Following the procedure there were reportedly some diabetic medication changes. Patient presented to the emergency room back on 03/20/2023 chiefly with the complaints of generalized weakness and high blood sugars. He also may have fell in the bathroom hitting his back, he was complaining of severe lower back pain on arrival. Currently, the patient is lethargic and confused, and most of this information is supplemented from the chart. He was receiving IV vancomycin outpatient for ongoing osteomyelitis of the right foot. He does have chronic wounds on bilateral feet. He is currently receiving IV antibiotics in the form of daptomycin, cefepime, and Flagyl per infectious disease. Patient does have a fluctuant lower back mass. Ultrasound of this area demonstrates a heterogenous indeterminate lesion which could represent hematoma. CT of the lower back demonstrated sclerotic lesions throughout the visualized osseous structures suggesting osseous metastatic disease. There was mild multilevel degenerative disc disease. No vertebral compression collapse or acute fracture seen. No large focal disc herniation or landen canal compromise seen. Patient does have active prostate cancer was on Nubeqa outpatient. As far as the patient's blood sugars, they're better controlled, on sliding scale insulin. Most recent BMP from yesterday shows a sodium 136, potassium 3.6, chloride 101, serum bicarb 26, BUN 13, creatinine 0.93, glucose 104. Most recent CBC from yesterday shows a WBC count of 7.4, hemoglobin 9, hematocrit 29.9, platelets 224. Apparently, the patient was hypotensive and confused earlier yesterday after noon, and was transferred to the intensive care unit. He is receiving multiple narcotics for pain management around the clock. Brain CT did not show any acute intracranial process. ABG showed a pO2 of 55, pCO2 41, pH of 7.48. This was done on room air. Patient is currently resting comfortably on 2 L/m nasal cannula. D-dimer was elevated at 1.75, the patient is undergoing chest CTA. Clinical suspicion for pulmonary embolism is low. Troponins were mildly elevated at 0.841. Echocardiogram done this admission showed a mildly impaired left ventricular ejection fraction of 40% and mild-moderate mitral regurgitation. Chest x-ray at that time showed low lung volumes with generalized haziness joselin earance which could represent atelectasis versus pulmonary edema. Blood pressure is currently normotensive, not requiring any pressors. I do not see any record recorded hypotensive blood pressures. Heart rhythm appears normal sinus. Currently afebrile. Blood and wound cultures are pending. Overall prognosis is guarded, will continue to monitor in the intensive care unit. The patient is seen today 03/24/2023 in follow-up on the regular medical floor. He is currently resting in bed. Awake and alert in no acute distress. He is maintaining O2 saturations in the 90s on room air. He has normal saline at 50 MLS per hour. He is continued on cefepime and daptomycin. He has a dressing to the right foot ulceration. CT angiogram ruled out pulmonary embolism. There is findings consistent with bronchitis with pneumonitis and lower lobes and a tiny consolidation in the right lung base. Multiple sclerotic lesions demonstrated in the thoracic spine concerning for metastatic disease. Bone scan reveals intense abnormal uptake involving the right foot most likely on the basis of Charcot joint. Suspect abnormal uptake overlying the left lower pelvis is artifactual. Faint abnormal uptake involving the posterior left rib cage suspicious for metastasis. Faint abnormal uptake in following the thoracic and upper lumbar spine. Suspicion for early metastasis with intense abnormal uptake in the right iliac bone. Suspect widespread small areas of osseous metastasis. The patient had sustained a fall last evening and a computed tomography scan of the brain and C-spine revealed no acute fracture of subluxation of the cervical spine. No intracranial hemorrhage. No midline shift or mass effect. Right foot wound cultures positive for Martine. Left first toe positive for Martine. White count 7.4. Hemoglobin 8.1. Platelets 211. Sodium 137. Potassium 4.4. Bicarb 25. UN 14. Creatinine 0.9. Glucose 112. AST 32. ALT 14. Alk phos 141. He is continued on daptomycin, Flagyl and cefepime. The patient is seen today 03/25/2023 in follow-up on the regular medical floor. He is awake and alert in no acute distress. He is maintaining O2 saturations in the 90s on room air. He has normal saline at 50 MLS per hour. He is continued on cefepime, daptomycin and Flagyl. White count 6.6. Hemoglobin 7.8. Platelets 234. Sodium 138. Potassium 4.3. Bicarb 24. BUN 15. Creatinine 0.9. Glucose 144. AST 25. ALT 17. Alk phos 141. Wound cultures positive for Martine only. Normal saline at 50 MLS per hour. The patient is seen today 03/26/2023 in follow-up on the regular medical floor. He is sitting up in bed having breakfast. Awake and alert in no acute distress. Maintaining good O2 saturations in the 90s on room air. He's been afebrile. Hemodynamically stable. White count 7.4. Hemoglobin 8.3. Platelets 247. Glucose 101. The cultures revealed no growth. Wounds from the right and left toes were positive for Martine. He is currently on daptomycin and Flagyl per ID services. Normal saline at 50 MLS per hour. Heparin for DVT prophylaxis. The patient is seen today 03/27/2023 in follow-up on the regular medical floor. He is currently sitting up in a chair at the bedside. Awake and alert in no acute distress. He is maintaining good O2 saturations in the 90s on room air. Blood sugar 118. Wounds from the right and left toes were positive for Martine. He is continued on Invanz, daptomycin and Flagyl. Follow-up right foot wound cultures pending. He remains on oral diuretics. Heparin for DVT prophylaxis. Normal saline at 50 MLS per hour. The patient is seen today 03/28/2023 in follow-up on the regular medical floor. He is currently sitting up in bed. Awake and alert in no acute distress. Denies any worsening shortness of breath, cough or congestion. No fever or chills. Maintaining good O2 saturations in the 90s on room air. He has normal saline at 50 MLS per hour. He is continued on ertapenem, Flagyl, daptomycin. Plan is for PICC line placement and continued IV antibiotics post discharge. Heparin for DVT prophylaxis. White count 5.5. Hemoglobin 8.3. Platelets 216. Sodium 136. Potassium 5.5. Bicarb 25. BUN 12. Creatinine 1.01. Glucose 86. The patient is seen today 03/29/2023 in follow-up on the regular medical floor. He is awake and alert in no acute distress. Maintaining O2 saturations in the 90s on room air. He has normal saline at 50 miles per hour. He is continued on Flagyl, daptomycin and ertapenem for his diabetic foot ulcers. Cultures showing Martine bilaterally. Glucose 247. He remains on heparin for DVT prophylaxis. Awaiting PICC line placement. Objective - Vital Signs Vital signs: Vital Signs Temp 98.5 F 03/29/23 07:12 Pulse 67 03/29/23 07:12 Resp 17 03/29/23 07:12 BP 116/70 03/29/23 07:12 Pulse Ox 98 03/29/23 07:12 FiO2 21 03/27/23 15:35 Intake & Output 03/28/23 03/29/23 03/29/23 18:59 06:59 18:59 Intake Total 1080 827 Output Total 900 600 Balance 180 227 Weight 80 kg Intake: Oral 1080 827 Output: Urine 900 600 Other: Voiding Method External Catheter # Voids 1 1 # Bowel Movements 1 1 - Exam GENERAL EXAM: Awake, 67-year-old male, on room air, in no apparent distress. HEAD: Normocephalic and atraumatic EYES: Normal reaction of pupils, equal size. NOSE: Clear with pink turbinates. THROAT: No erythema or exudates. NECK: No masses, no JVD. CHEST: No chest wall deformity. LUNGS: Equal air entry with minimal bibasilar inspiratory crackles. No wheezes, rhonchi, dullness. No conversational dyspnea. CVS: S1 and S2 normal with grade 1 systolic murmur, regular rhythm. No extra heart sounds ABDOMEN: No hepatosplenomegaly, active bowel sounds, no guarding or rigidity. SPINE: No scoliosis or deformity. There is a left lateral fluctuant mass SKIN: Right plantar foot wound measuring approximately 5 x 5 cm, with granulation tissue and mild amounts of sloughing. Left great toe wound measuring approximately 2 x 2 centimeters. CENTRAL NERVOUS SYSTEM: Able to follow simple commands. No focal deficits, tone is normal in all 4 extremities. EXTREMITIES: There is no peripheral edema, clubbing, or cyanosis. Peripheral pulses are intact. - Labs CBC & Chem 7: 03/28/23 07:16 03/28/23 07:16 Labs: Abnormal Lab Results - Last 24 Hours (Table) 03/28/23 03/28/23 03/28/23 Range/Units 12:08 17:35 20:40 POC Glucose (mg/dL) 115 H 164 H 159 H (70-110) mg/dL 03/29/23 Range/Units 07:15 POC Glucose (mg/dL) 247 H (70-110) mg/dL Microbiology - Last 24 Hours (Table) 03/26/23 15:40 Anaerobic Culture - Preliminary Foot - Right 03/26/23 11:40 Anaerobic Culture - Preliminary Heel - Right 03/26/23 15:40 Gram Stain - Final Foot - Right Wound Culture - Final Martine albicans 03/26/23 11:40 Gram Stain - Final Foot - Right Wound Culture - Final Martine albicans Assessment and Plan Assessment: Acute hypoxemic respiratory failure, possibly related to mild exacerbation of systolic congestive heart failure. Chest x-ray showed low lung volumes with generalized hazy appearance which could represent atelectasis versus pulmonary edema. No focal infiltrates or evidence of pneumonia. Recovered and on room air Hypotension and suspected sepsis, improved, not requiring vasopressors. Recovered Hyperglycemia, improved, on NovoLog sliding scale insulin Altered mental status, possibly related to metabolic encephalopathy, secondary to above. Improved Chronic osteomyelitis of the right foot, currently on antibiotics per infectious disease Bilateral foot wounds Prostate cancer, maintained on Nubeqa outpatient Lower back pain, with metastatic disease. CT of the lower back demonstrated sclerotic lesions throughout the visualized osseous structures suggesting osseous metastatic disease. There was mild multilevel degenerative disc disease. No vertebral compression collapse or acute fracture seen. No large focal disc herniation or landen canal compromise seen. CT angiogram ruled out pulmonary embolism. There is findings consistent with bronchitis with pneumonitis and lower lobes and a tiny consolidation in the right lung base. Multiple sclerotic lesions demonstrated in the thoracic spine concerning for metastatic disease. Bone scan reveals intense abnormal uptake involving the right foot most likely on the basis of Charcot joint. Suspect abnormal uptake overlying the left lower pelvis is artifactual. Faint abnormal uptake involving the posterior left rib cage suspicious for metastasis. Faint abnormal uptake in following the thoracic and upper lumbar spine. Suspicion for early metastasis with intense abnormal uptake in the right iliac bone. Suspect widespread small areas of osseous metastasis. Fall on 03/23/2023. Computed tomography scan of the brain and C-spine ruled out fracture. No acute intracranial abnormality Lumbar mass, ultrasound of this area demonstrates a heterogenous indeterminate lesion which could represent hematoma Uncontrolled vwm-tvyetsc-clisjdoie diabetes mellitus, with diabetic foot ulcers Coronary artery disease with previous CABG Hyperlipidemia History of hypertension History of CVA/TIA History of PVD with previous bilateral iliac stents Recent history of cholecystectomy History of previous left nephrectomy related to transitional cell carcinoma Anemia of chronic disease Plan: The patient was seen and evaluated Labs and medications reviewed Currently stable and on room air Continued on Flagyl, ertapenem, daptomycin Plan is for PICC line replacement tomorrow We will continue to follow This patient was seen independently by the nurse practitioner I have personally seen and examined the patient, performed the documentation and the assessment and plan as written. Number of minutes spent on the visit: 22.
--- NOTE | 2023-03-29 11:41 | P.PN ---
Progress Note - Text Progress Note Date: 03/29/23 Progress Note - SOAP Patient Name: Aba Dunn Date of : 1955 Patient Status: Inpatient Attending Provider: Farooq Solis Date: 03/29/23 10:47 Initialization Date: 03/29/23 10:47 Subjective Progress Note Date: 03/29/23 Aba dunn is 67 year old male patient who presented to the ER with concerns of generalized weakness. Patient had a recent lap sandra at [facility]. Patient reports that he has not been on his diabetic medication following lap sandra when EMS arrived they found elevated blood sugars greater than 600. Patient has been maintained on IV antibiotic vancomycin for right foot diabetic ulcers. Patient denies fevers at home. Additional medical history includes CAD, chest pain, CVA, diabetes mellitus, GI bleed, hyperlipide belén, hypertension, PR, prostate disorder, renal disease, sleep apnea, non- Hodgkin's lymphoma, heart cath with stent. Chest x-ray completed showing slightly prominent interstitial markings. Hip x-ray completed showing no acute fracture or dislocation. White blood cell 9.0 initial blood sugars greater than 600 patient was started on insulin drip. UA negative for ketones. Patient was resumed back on vancomycin. Troponin elevated 0.2-3 will order serial troponins and cardiac monitoring cardiology service is consulted. Vascular surgery and infectious disease service is consulted blood culture ordered. Repeat labs ordered. At this time patient is resting comfortably bed patient reports improvement with symptoms. Patient denies chest pain or shortness of breath. Patient denies nausea vomiting or diarrhea. Patient denies any urinary burning or frequency On 03/21/2023 patient was seen and examined on the medical floor he is alert and oriented 3, he is complaining of severe back pain that he rates at 10 out of 10, he states that he fell yesterday and hit his back, x-ray of the lumbar spine was done yesterday in the emergency room, and did not reveal any fracture, however it revealed diffuse sclerotic bone lesions, suggestive of metastatic disease, at this time will check PSA and consult oncology in that regard. Patient is also having significant drop in hemoglobin since yesterday, will check stools for occult blood, will check iron panel vitamin B12 and folate level, will follow closely. On 03/22/2023 patient is alert and oriented 3 patient is currently resting in bed. Oncology services are following bone scan ordered along with multiple lab values. Patient remains on IV daptomycin and Maxipime. Current vital signs temp 98.8, heart rate 77, respiratory rate 17, blood pressure 127/67 pulse with a pulse ox of 99% on room air On 03/23/2023 patient was seen and examined in the ICU, he is alert and more oriented today, yesterday he had severe confusion and mental status changes, computed tomography scan of the brain was done and there was no evidence of intracranial bleeding, ammonia level was normal, his mental status changes could be related to pain medications. Patient was transferred to ICU and monitored closely, arterial blood gas was done, critical care consult was requested. Today patient is feeling better he is more alert and oriented, he was cleared for transfer back to the floor. He underwent bone scan to assess possible metastatic bone disease, oncology are following Patient remains on IV cefepime and IV daptomycin, infectious disease following. On 03/24/2023 patient has been transferred to medical floor. Patient is alert. Patient remains on IV antibiotics. Current vital signs temp 97.5, 70, respiratory rate 17, blood pressure 125/66 on room air 99%. Oncology cardiology and critical care service is following. On 03/25/2023 patient is alert and oriented with intermittent episodes of confusion and forgetfulness. Consult placed for radiation per oncology services. PT OT service is consulted. Patient remains on IV antibiotics daptomycin Maxipime and oral flagyl. Oncology, infectious disease, pulmonary and neurology services are all following. Current vital signs temp 97.4, heart rate 59, respiratory rate 16, blood pressure 121/67 with a pulse ox of 99% on room air. On 03/26/2023 patient was seen and examined on the medical floor, he is alert and oriented 3 in no apparent distress, he is complaining of pain in his right foot, he underwent debridement at the bedside by Dr. Knapp today, otherwise he denies any complaints there is no fever or chills no headache or dizziness no chest pain no shortness of breath no cough no nausea or vomiting no abdominal pain no diarrhea and no urinary symptoms On 03/27/2023 patient is alert and oriented 3. IV antibiotics adjusted to IV Invanz and daptomycin. Wound cultures obtained. Will consult social work services to initiate discharge planning. Current vital signs temp 98.9, pulse rate 72, respirator rate 18, blood pressure 122/63 with pulse ox 97% on room air On 03/28/2023 patient was seen and examined on the medical floor he is alert and oriented 3 in no apparent distress he is still complaining of pain in the right foot area otherwise he denies any complaints there is no fever or chills no headache or dizziness no chest pain no shortness of breath no cough no nausea or vomiting no abdominal pain no diarrhea and no urinary symptoms. Case was discussed with Dr. Knapp and Dr. Landeros plan is for home on Thursday with outpatient IV antibiotics and follow up at the wound care clinic. On 03/29/2023 patient is alert and oriented 3. Patient actually pulled out PICC line. Order for a new PICC line. Anticipate possible discharge home tomorrow with IV antibiotics. Mentation significantly improved. Current vital signs temp 98.5, heart rate 67, respiratory rate 17, blood pressure 116/70 with a pulse ox of 98% on room air Objective - Vital Signs Vital signs: Vital Signs Temp 98.5 F 03/29/23 07:12 Pulse 67 03/29/23 07:12 Resp 17 03/29/23 07:12 BP 116/70 03/29/23 07:12 Pulse Ox 98 03/29/23 07:12 FiO2 21 03/27/23 15:35 Intake & Output 03/28/23 03/29/23 03/29/23 18:59 06:59 18:59 Intake Total 1080 827 Output Total 900 600 Balance 180 227 Weight 80 kg Intake: Oral 1080 827 Output: Urine 900 600 Other: Voiding Method External Catheter # Voids 1 1 # Bowel Movements 1 1 - Exam In general patient is alert and oriented x 3 in no distress HEENT head normocephalic and atraumatic Neck is supple no JVD no goiter no lymphadenopathy no carotid bruit Chest examination is clear to auscultation no crackles no wheezing Cardiac exam reveals regular heart sounds S1 and S2 no gallops no murmurs Abdomen is soft nontender no organomegaly with normal bowel sounds Extremity exam reveals minimal swelling, with bilateral wounds involving the feet and the toes Neurological examination reveals no gross focal deficits - Labs CBC & Chem 7: 03/28/23 07:16 03/28/23 07:16 Labs: Abnormal Lab Results - Last 24 Hours (Table) 03/28/23 03/28/23 03/28/23 Range/Units 12:08 17:35 20:40 POC Glucose (mg/dL) 115 H 164 H 159 H (70-110) mg/dL 03/29/23 Range/Units 07:15 POC Glucose (mg/dL) 247 H (70-110) mg/dL Microbiology - Last 24 Hours (Table) 03/26/23 15:40 Anaerobic Culture - Preliminary Foot - Right 03/26/23 11:40 Anaerobic Culture - Preliminary Heel - Right 03/26/23 15:40 Gram Stain - Final Foot - Right Wound Culture - Final Martine albicans 03/26/23 11:40 Gram Stain - Final Foot - Right Wound Culture - Final Martine albicans Assessment and Plan Assessment: 1. Uncontrolled diabetes mellitus with hyperglycemia. 2. Recent laparoscopic cholecystectomy Analy Jeffery 3. Diabetic foot ulcers maintained on IV antibiotics 4. Generalized weakness 5. Elevated troponin 6. underlying history of [id number] diabetes mellitus 7. Underlying history of essential hypertension 8. History of neuropathy 9. History of hyperlipidemia 10. History of peripheral vascular disease 11. History of coronary artery disease with history of myocardial infarction 12. History of GI bleeding 13. History of CVA 14. 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 Sclerotic lesions seen on CT lumbar spine. Oncology service is following. Bone scan ordered DVT prophylaxis heparin. GI prophylaxis Protonix Cardiology service is consulted for elevated troponin, repeat troponin ordered Infectious disease and vascular surgery consulted Patient remains on IV antibiotics Blood cultures ordered
[2023-03-29 12:42] LABS: Glucose,Whole Blood 125 mg/dL (70-110)
--- NOTE | 2023-03-29 15:42 | P.PN ---
Subjective Progress Note Date: 03/28/23 Principal diagnosis: Diabetic foot ulcer and osteomyelitis Patient is a 67-year male with a past medical history significant for diabetes mellitus patient did have a Charcot deformity of the right foot chronic nonhealing wound to the right foot plantar aspect with underlying osteomyelitis and also with the left big toe nonhealing wound presented to hospital with weakn ess and multiple falls and worsening pain to the lower back area. On today's evaluation that is 03/28/2023 the patient continues to be afebrile, the patient is breathing comfortably on room air and denies any shortness of breath, the patient denies chest pain or cough, patient denies abdominal pain, no nausea/vomiting or diarrhea. Patient did have white count is 5.5, creatinine 1.01 Objective - Vital Signs Vital signs: Vital Signs Temp 98.7 F 03/28/23 08:00 Pulse 71 03/28/23 08:00 Resp 18 03/28/23 08:00 BP 136/74 03/28/23 08:00 Pulse Ox 98 03/28/23 08:00 FiO2 21 03/27/23 15:35 Intake & Output 03/27/23 03/28/23 03/28/23 18:59 06:59 18:59 Output Total 800 300 Balance -800 -300 Weight 78.7 kg 79.5 kg Output: Urine 800 300 Other: Voiding Method External Catheter External Catheter # Voids 1 # Bowel Movements 1 - Exam GENERAL DESCRIPTION: An elderly male lying in bed in no distress RESPIRATORY SYSTEM: Unlabored breathing , decreased breath sounds at bases HEART: S1 S2 regular rate and rhythm , ABDOMEN: Soft , no tenderness EXTREMITIES: Right foot wound currently dressed no drainage of the dressing - Labs CBC & Chem 7: 03/28/23 07:16 03/28/23 07:16 Labs: Abnormal Lab Results - Last 24 Hours (Table) 03/27/23 03/27/23 03/28/23 Range/Units 11:56 21:08 07:16 RBC 3.00 L (4.30-5.90) m/uL Hgb 8.3 L (13.0-17.5) gm/dL Hct 26.7 L (39.0-53.0) % MCHC 30.9 L (31.0-37.0) g/dL RDW 15.7 H (11.5-15.5) % Lymphocytes # 0.8 L (1.0-4.8) k/uL Sodium (137-145) mmol/L Potassium (3.5-5.1) mmol/L Glucose (74-99) mg/dL POC Glucose (mg/dL) 118 H 111 H (70-110) mg/dL Alkaline Phosphatase (38-126) U/L Total Protein (6.3-8.2) g/dL Albumin (3.5-5.0) g/dL 03/28/23 Range/Units 07:16 RBC (4.30-5.90) m/uL Hgb (13.0-17.5) gm/dL Hct (39.0-53.0) % MCHC (31.0-37.0) g/dL RDW (11.5-15.5) % Lymphocytes # (1.0-4.8) k/uL Sodium 136 L (137-145) mmol/L Potassium 5.3 H (3.5-5.1) mmol/L Glucose 57 L (74-99) mg/dL POC Glucose (mg/dL) (70-110) mg/dL Alkaline Phosphatase 150 H (38-126) U/L Total Protein 5.6 L (6.3-8.2) g/dL Albumin 2.6 L (3.5-5.0) g/dL Microbiology - Last 24 Hours (Table) 03/26/23 11:40 Gram Stain - Preliminary Foot - Right Wound Culture - Preliminary Martine albicans 03/26/23 15:40 Gram Stain - Preliminary Foot - Right Assessment and Plan (1) Diabetic foot ulcer Current Visit: Yes Status: Acute Priority: High Code(s): E11.621 - TYPE 2 DIABETES MELLITUS WITH FOOT ULCER; L97.509 - NON-PRESSURE CHRONIC ULCER OTH PRT UNSP FOOT W UNSP SEVERITY SNOMED Code(s): 245314156 (2) Foot osteomyelitis, right Current Visit: No Status: Acute Code(s): M86.9 - OSTEOMYELITIS, UNSPECIFIED SNOMED Code(s): 6059312109766507 Plan: 1patient presented to hospital with weakness multiple falls has been complaining of excruciating pain to the lower back area after a fall patient also have a nonhealing wound on the plantar aspect of the right foot as well as the left big toe with recent culture positive for MRSA Enterococcus faecalis and Alcaligenes faecalis for the patient was receiving antibiotic in the outpatient setting, patient did have persistent nonhealing of the wound which is probing down to the bone on the right foot plantar aspect concerning for acute on chronic osteomyelitis 2-patient still has significant swelling to the right foot dorsum aspect and significant amount of purulent drainage was noticed concerning for abscess, case discussed with vascular surgery and the patient did have a further drainage for now continue the patient on Invanz and daptomycin Dictation was produced using [employer] dictation software. please excuse any grammatical, word or spelling errors. Time with Patient: Less than 30
--- NOTE | 2023-03-29 15:44 | P.PN ---
Subjective Progress Note Date: 03/29/23 Principal diagnosis: Diabetic foot ulcer and osteomyelitis Patient is a 67-year male with a past medical history significant for diabetes mellitus patient did have a Charcot deformity of the right foot chronic nonhealing wound to the right foot plantar aspect with underlying osteomyelitis and also with the left big toe nonhealing wound presented to hospital with weakn ess and multiple falls and worsening pain to the lower back area. On today's evaluation that is 03/29/2023 the patient denies any fever or any chills, the patient denies shortness of breath chest pain or cough, the patient nausea/vomiting or diarrhea and no abdominal pain. Denies any worsening pain to the right foot Patient did have white count is 5.5, creatinine 1.01 as of 03/28/2023 Objective - Vital Signs Vital signs: Vital Signs Temp 98 F 03/29/23 12:43 Pulse 68 03/29/23 12:43 Resp 17 03/29/23 12:43 BP 121/62 03/29/23 12:43 Pulse Ox 96 03/29/23 12:43 FiO2 21 03/27/23 15:35 Intake & Output 03/28/23 03/29/23 03/29/23 18:59 06:59 18:59 Intake Total 1080 827 Output Total 900 600 Balance 180 227 Weight 80 kg Intake: Oral 1080 827 Output: Urine 900 600 Other: Voiding Method External Catheter # Voids 1 1 # Bowel Movements 1 1 - Exam GENERAL DESCRIPTION: An elderly male lying in bed in no distress RESPIRATORY SYSTEM: Unlabored breathing , decreased breath sounds at bases HEART: S1 S2 regular rate and rhythm , ABDOMEN: Soft , no tenderness EXTREMITIES: Right foot wound currently dressed no drainage of the dressing - Labs CBC & Chem 7: 03/28/23 07:16 03/28/23 07:16 Labs: Abnormal Lab Results - Last 24 Hours (Table) 03/28/23 03/28/23 03/29/23 Range/Units 17:35 20:40 07:15 POC Glucose (mg/dL) 164 H 159 H 247 H (70-110) mg/dL 03/29/23 Range/Units 12:41 POC Glucose (mg/dL) 125 H (70-110) mg/dL Microbiology - Last 24 Hours (Table) 03/26/23 15:40 Anaerobic Culture - Preliminary Foot - Right 03/26/23 11:40 Anaerobic Culture - Preliminary Heel - Right 03/26/23 15:40 Gram Stain - Final Foot - Right Wound Culture - Final Martine albicans 03/26/23 11:40 Gram Stain - Final Foot - Right Wound Culture - Final Martine albicans Assessment and Plan (1) Diabetic foot ulcer Current Visit: Yes Status: Acute Priority: High Code(s): E11.621 - TYPE 2 DIABETES MELLITUS WITH FOOT ULCER; L97.509 - NON-PRESSURE CHRONIC ULCER OTH PRT UNSP FOOT W UNSP SEVERITY SNOMED Code(s): 009978008 (2) Foot osteomyelitis, right Current Visit: No Status: Acute Code(s): M86.9 - OSTEOMYELITIS, UNSPECIFIED SNOMED Code(s): 9574048393624657 Plan: 1patient presented to hospital with weakness multiple falls has been complaining of excruciating pain to the lower back area after a fall patient also have a nonhealing wound on the plantar aspect of the right foot as well as the left big toe with recent culture positive for MRSA Enterococcus faecalis and Alcaligenes faecalis for the patient was receiving antibiotic in the outpatient setting, patient did have persistent nonhealing of the wound which is probing down to the bone on the right foot plantar aspect concerning for acute on chronic osteomyelitis 2-patient still has significant swelling to the right foot dorsum aspect and significant amount of purulent drainage was noticed concerning for abscess, case discussed with vascular surgery and the patient did have a further drainage for now continue the patient on Invanz and daptomycin, cultures appear to be growing Martine which is more likely a colonizer keeping in mind multiple medication patient is on which are interacting with Diflucan , would hold on adding Diflucan at this point Dictation was produced using [employer] software. please excuse any grammatical, word or spelling errors. Time with Patient: Less than 30
--- NOTE | 2023-03-29 16:48 | P.PN ---
Subjective Progress Note Date: 03/29/23 The pt is seen in neurologic follow up on 2022, in coverage for Dr. Casiano, via teleneurology. The pt reports that he is doing well. He is no longer confused. In fact, he is paying a bill via his cellphone, while we are waiting to speak with him. The chart has been reviewed Objective - Vital Signs Vital signs: Vital Signs Temp 98.5 F 03/29/23 07:12 Pulse 67 03/29/23 07:12 Resp 17 03/29/23 07:12 BP 116/70 03/29/23 07:12 Pulse Ox 98 03/29/23 07:12 FiO2 21 03/27/23 15:35 Intake & Output 03/28/23 03/29/23 03/29/23 18:59 06:59 18:59 Intake Total 1080 827 Output Total 900 600 Balance 180 227 Weight 80 kg Intake: Oral 1080 827 Output: Urine 900 600 Other: Voiding Method External Catheter # Voids 1 1 # Bowel Movements 1 1 - Exam General: reclining in bed. No distress HEENT: Atraumatic, normocephalic Neurological Mental status: The pt is awake, alert and oriented x3. speech is clear. Cranial nerves: 2-12 grossly intact - Labs CBC & Chem 7: 03/28/23 07:16 03/28/23 07:16 Labs: Abnormal Lab Results - Last 24 Hours (Table) 03/28/23 03/28/23 03/29/23 Range/Units 17:35 20:40 07:15 POC Glucose (mg/dL) 164 H 159 H 247 H (70-110) mg/dL Microbiology - Last 24 Hours (Table) 03/26/23 15:40 Anaerobic Culture - Preliminary Foot - Right 03/26/23 11:40 Anaerobic Culture - Preliminary Heel - Right 03/26/23 15:40 Gram Stain - Final Foot - Right Wound Culture - Final Martine albicans 03/26/23 11:40 Gram Stain - Final Foot - Right Wound Culture - Final Martine albicans Assessment and Plan Assessment: 1. Toxic metabolic encephalopathy-resolved Plan: 1. There is no indication for brain imaging 2. Neurology will sign off at this time Time with Patient: Less than 30
[2023-03-29 17:26] LABS: Glucose,Whole Blood 153 mg/dL (70-110)
[2023-03-29 20:37] LABS: Glucose,Whole Blood 317 mg/dL (70-110)
[2023-03-30 07:34] LABS: Glucose,Whole Blood 117 mg/dL (70-110)
[2023-03-30] MEDS: MAGNESIUM OXIDE 400 MG TAB PO SCH (07:41)
[2023-03-30] MEDS: metroNIDAZOLE 500 MG TAB PO SCH (07:41)
[2023-03-30] MEDS: ERTAPENEM 1 GM in SODIUM CHLORIDE 0.9% 50 ML IVPB SCH (07:41)
[2023-03-30] MEDS: CLOPIDOGREL 75 MG TAB PO SCH ×2 (07:42→11:58)
[2023-03-30] MEDS: GABAPENTIN 300 MG CAP PO SCH (07:42)
[2023-03-30] MEDS: carvediloL 3.125 MG TAB PO SCH (07:42)
[2023-03-30] MEDS: ASPIRIN 81 MG PO SCH (07:42)
[2023-03-30] MEDS: FAMOTIDINE 20 MG TAB PO SCH (07:42)
[2023-03-30] MEDS: glipiZIDE 10 MG TAB PO SCH (07:42)
[2023-03-30] MEDS: POTASSIUM CHLORIDE ER 20 MEQ TAB.ER PO SCH (07:42)
[2023-03-30] MEDS: INSULIN ASPART (NovoLOG) 100 UNIT/ML VIAL SQ SCH ×2 (07:51→11:56)
[2023-03-30 08:05] VITALS: RESP 18
[2023-03-30] MEDS ORDERED: LIDOCAINE 1% INJ 10MG/ML (5 ML VIAL-PF) SQ ONE ×2 (10:22→10:29)
[2023-03-30 10:42] LABS: Basophils # (A) 0.06 X 10*3/uL (0.00-0.10); Basophils % (A) 0.9 %; Eosinophils # (A) 0.07 X 10*3/uL (0.04-0.35); HCT 25.8 % (39.6-50.0); HGB 7.8 g/dL (13.0-17.0); Lymphocytes # (A) 0.68 X 10*3/uL (0.90-5.00); Lymphocytes % (A) 9.7 %; MCHC 30.2 g/dL (32.0-37.0); MCV 89.3 FL (80.0-97.0); Mean Platelet Volume 10.2 FL (9.5-12.2); Monocytes # (A) 0.41 X 10*3/uL (0.20-1.00); Monocytes % (A) 5.8 %; NRBC Per 100 WBC 0 X 10*3/uL (0.00-0.01); Neutrophils # (A) 5.74 X 10*3/uL (1.80-7.70); Neutrophils % (A) 81.6 %; Platelet Count 216 X 10*3/uL (140-440); RBC 2.89 X 10*6/uL (4.40-5.60); WBC 7.03 X 10*3/uL (4.50-10.00)
[2023-03-30] MEDS: HEPARIN SODIUM,PORCINE 5,000 UNIT/ML 1 ML VIAL SQ SCH (10:49)
[2023-03-30] MEDS: DAPTOmycin 500 MG in SODIUM CHLORIDE 0.9% 50 ML IVPB SCH (11:05)
[2023-03-30] MEDS: NYSTATIN 100,000 UNIT/GM POWD 15 GM TOPICAL SCH (11:05)
[2023-03-30 11:07] LABS: ALT 10 U/L (10-49); AST 14 U/L (14-35); Albumin 2.9 g/dL (3.8-4.9); Albumin/Globulin Ratio 1.04 Ratio (1.60-3.17); Alkaline Phosphatase 143 U/L (41-126); Calcium 8.6 mg/dL (8.7-10.3); Carbon Dioxide 24.5 mmol/L (21.6-31.8); Chloride 101 mmol/L (96-109); Globulin 2.8 g/dL (1.6-3.3); Glucose 100 mg/dL (70-110); Potassium 5.1 mmol/L (3.5-5.5); Sodium 136 mmol/L (135-145); Total Bilirubin 0.4 mg/dL (0.3-1.2); Total Protein 5.7 g/dL (6.2-8.2)
--- NOTE | 2023-03-30 11:09 | IR ---
PICC LINE PLACEMENT: HISTORY: Infection requiring long-term antibiotic therapy PROCEDURE: Ultrasound and fluoroscopic guidance of PICC line placement. COMPLICATIONS: None ANESTHESIA: 1. 1% Lidocaine locally. FINDINGS/TECHNIQUE: The procedure was explained to the patient. The risks, complications, benefits and alternatives were discussed and any questions were answered. Informed consent was obtained. The patient was placed supine on the fluoroscopic table and prepped and draped in the usual sterile fash ion. Utilizing a 21 gauge needle and sonographic and fluoroscopic guidance, access in the right bas ilic vein was achieved and there is placement of a 0.018 guidewire. The vein is patent. A 4-F sheat h was placed over the guidewire. The guidewire and dilator were removed and a 4-F. PICC line was jason steven through the sheath with the tip at the level of the SVC. The sheath was removed, the catheter wa s flushed and sutured into position. The patient was stable throughout the procedure and remained st able upon discharge from the Department of Radiology. Note is made that there is also puncture the le ft basilic vein. There appear to be occlusion of the left axillary vein. The vein puncture was patent under ultrasound. A nuñez scale image was obtained to document patency of the vein punctured. All elements of the maximal barrier technique were utilized. FLUOROSCOPY TIME: DAP 0.5Gy cm2 IMPRESSION: Successful PICC line placement under ultrasound and fluoroscopic guidance. See above.
[2023-03-30 11:57] LABS: Glucose,Whole Blood 127 mg/dL (70-110)
[2023-03-30] MEDS: oxyCODONE-APAP 10-325MG 1 EACH TAB PO PRN (12:28)
[2023-03-30 12:48] VITALS: BP 120/70; PULSE 68; TEMP 98
--- NOTE | 2023-03-30 14:20 | P.DS ---
Providers Date of admission: 03/20/23 06:28 Expected date of discharge: 03/30/23 Attending physician: Farooq Solis Consults: 03/20/23 06:27 Consult Physician Routine Consulting Provider: Maury Abernathy Consult Reason/Comments: Diabetic foot ulcer, the patient Do you want consulting provider notified?: Yes 03/20/23 09:10 Consult Physician Routine Consulting Provider: Devin Novak Consult Reason/Comments: positive troponins Do you want consulting provider notified?: Yes Consult Physician Routine Consulting Provider: Nic Landeros Consult Reason/Comments: diabetic foot ulcer Do you want consulting provider notified?: Yes 03/21/23 11:14 Consult Physician Routine Consulting Provider: Luiz Gaytan Consult Reason/Comments: sclerotic bone lesions Do you want consulting provider notified?: Yes 03/22/23 16:36 Consult Physician Routine Consulting Provider: Delroy Miramontes Consult Reason/Comments: confusion Do you want consulting provider notified?: Yes 03/22/23 22:59 Consult Physician Routine Consulting Provider: Stephan Miramontes Consult Reason/Comments: Hypotension, Alt. mental status, Sepsis Do you want consulting provider notified?: Already Contacted 03/24/23 12:18 Consult Physician Routine Consulting Provider: Cristian Rene Consult Reason/Comments: met prostate cancer, mets to spine Do you want consulting provider notified?: Already Contacted Primary care physician: Farooqemerson Solis [facility] Course: Diagnosis on discharge: 1. Uncontrolled diabetes mellitus with hyperglycemia. 2. Recent laparoscopic cholecystectomy [facility] 3. Diabetic foot ulcers maintained on IV antibiotics 4. Generalized weakness 5. Elevated troponin 6. underlying history of ebt-xcwpxzx-jnfadotwn diabetes mellitus 7. Underlying history of essential hypertension 8. History of neuropathy 9. History of hyperlipidemia 10. History of peripheral vascular disease 11. History of coronary artery disease with history of myocardial infarction 12. History of GI bleeding 13. History of CVA 14. 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 Sclerotic lesions seen on CT lumbar spine. Oncology service is following. Bone scan ordered Hospital course: Aba dunn is 67 year old male patient who presented to the ER with concerns of generalized weakness. Patient had a recent lap sandra at [facility]. Patient reports that he has not been on his diabetic medication following lap sandra when EMS arrived they found elevated blood sugars greater than 600. Patient has been maintained on IV antibiotic vancomycin for right foot diabetic ulcers. Patient denies fevers at home. Additional medical history includes CAD, chest pain, CVA, diabetes mellitus, GI bleed, hyperlipidemia, hypertension, UT, prostate disorder, renal disease, sleep apnea, non-Hodgkin's lymphoma, heart cath with stent. Chest x-ray completed showing slightly prominent interstitial markings. Hip x-ray completed showing no acute fracture or dislocation. White blood cell 9.0 initial blood sugars greater than 600 patient was started on insulin drip. UA negative for ketones. Patient was resumed back on vancomycin. Troponin elevated 0.2-3 will order serial troponins and cardiac monitoring cardiology service is consulted. Vascular surgery and infectious disease service is consulted blood culture ordered. Repeat labs ordered. At this time patient is resting comfortably bed patient reports improvement with symptoms. Patient denies chest pain or shortness of breath. Patient denies nausea vomiting or diarrhea. Patient denies any urinary burning or frequency On 03/21/2023 patient was seen and examined on the medical floor he is alert and oriented 3, he is complaining of severe back pain that he rates at 10 out of 10, he states that he fell yesterday and hit his back, x-ray of the lumbar spine was done yesterday in the emergency room, and did not reveal any fracture, however it revealed diffuse sclerotic bone lesions, suggestive of metastatic disease, at this time will check PSA and consult oncology in that regard. Patient is also having significant drop in hemoglobin since yesterday, will check stools for occult blood, will check iron panel vitamin B12 and folate level, will follow closely. On 03/22/2023 patient is alert and oriented 3 patient is currently resting in bed. Oncology services are following bone scan ordered along with multiple lab values. Patient remains on IV daptomycin and Maxipime. Current vital signs temp 98.8, heart rate 77, respiratory rate 17, blood pressure 127/67 pulse with a pulse ox of 99% on room air On 03/23/2023 patient was seen and examined in the ICU, he is alert and more oriented today, yesterday he had severe confusion and mental status changes, computed tomography scan of the brain was done and there was no evidence of intracranial bleeding, ammonia level was normal, his mental status changes could be related to pain medications. Patient was transferred to ICU and monitored closely, arterial blood gas was done, critical care consult was requested. Today patient is feeling better he is more alert and oriented, he was cleared for transfer back to the floor. He underwent bone scan to assess possible metastatic bone disease, oncology are following Patient remains on IV cefepime and IV daptomycin, infectious disease following. On 03/24/2023 patient has been transferred to medical floor. Patient is alert. Patient remains on IV antibiotics. Current vital signs temp 97.5, 70, respiratory rate 17, blood pressure 125/66 on room air 99%. Oncology cardiology and critical care service is following. On 03/25/2023 patient is alert and oriented with intermittent episodes of confusion and forgetfulness. Consult placed for radiation per oncology services. PT OT service is consulted. Patient remains on IV antibiotics da ptomycin Maxipime and oral flagyl. Oncology, infectious disease, pulmonary and neurology services are all following. Current vital signs temp 97.4, heart rate 59, respiratory rate 16, blood pressure 121/67 with a pulse ox of 99% on room air. On 03/26/2023 patient was seen and examined on the medical floor, he is alert and oriented 3 in no apparent distress, he is complaining of pain in his right foot, he underwent debridement at the bedside by Dr. Knapp today, otherwise he denies any complaints there is no fever or chills no headache or dizziness no chest pain no shortness of breath no cough no nausea or vomiting no abdominal pain no diarrhea and no urinary symptoms On 03/27/2023 patient is alert and oriented 3. IV antibiotics adjusted to IV Invanz and daptomycin. Wound cultures obtained. Will consult social work services to initiate discharge planning. Current vital signs temp 98.9, pulse rate 72, respirator rate 18, blood pressure 122/63 with pulse ox 97% on room air On 03/28/2023 patient was seen and examined on the medical floor he is alert and oriented 3 in no apparent distress he is still complaining of pain in the right foot area otherwise he denies any complaints there is no fever or chills no headache or dizziness no chest pain no shortness of breath no cough no nausea or vomiting no abdominal pain no diarrhea and no urinary symptoms. Case was discussed with Dr. Knapp and Dr. Landeros plan is for home on Thursday with outpatient IV antibiotics and follow up at the wound care clinic. On 03/29/2023 patient is alert and oriented 3. Patient actually pulled out PICC line. Order for a new PICC line. Anticipate possible discharge home tomorrow with IV antibiotics. Mentation significantly improved. Current vital signs temp 98.5, heart rate 67, respiratory rate 17, blood pressure 116/70 with a pulse ox of 98% on room air Patient Condition at Discharge: Poor Plan - Discharge Summary New Discharge Prescriptions: New DAPTOmycin [Cubicin] 500 mg IVPB Q24HR #0 each Nystatin 100,000 Unit/gm Powd [Mycostatin Powder] 1 applic TOPICAL BID 10 Days #100 each glipiZIDE [Glucotrol] 10 mg PO AC-BID 30 Days #60 tab Ertapenem [INVanz] 1 gm IVPB DAILY each lisinopriL [Zestril] 2.5 mg PO DAILY 30 Days #30 tab Continue Clopidogrel Bisulfate [Clopidogrel] 75 mg PO DAILY Fluticasone Nasal [place] [Flonase Nasal [place]] 1 spr EA NOSTRIL DAILY PRN PRN Reason: Allergy Symptoms hydrOXYzine HCL [Atarax] 50 mg PO HS PRN PRN Reason: Insomnia Aspirin 81 mg PO DAILY #30 tab Nubeqa 300 Mg Tablet 600 mg PO BID #0 Calcium Carb-Vit D 500Mg-5Mcg [Oscal 500+D 5 Mcg (200 Iu)] 1 tab PO TID- W/MEALS Potassium Chloride [K-Tab ER] 20 meq PO BID #60 tab oxyCODONE-APAP 10-325MG [Percocet 10-325 mg] 1 tab PO Q6H PRN PRN Reason: Pain Magnesium Oxide [Mag-Ox] 400 mg PO DAILY tab Furosemide [Lasix] 20 mg PO DAILY PRN PRN Reason: Edema DAPTOmycin [Cubicin] 340 mg IV DAILY Gabapentin 600 mg PO TID carvediloL [Coreg] 3.125 mg PO BID-W/MEALS 30 Days #60 tab Atorvastatin [Lipitor] 40 mg PO DAILY #30 tab Discontinued Morphine Sulfate ER [Ms Contin] 30 mg PO BID cefTRIAXone [Rocephin] 2 gm IV DAILY Discharge Medication List Clopidogrel Bisulfate [Clopidogrel] 75 mg PO DAILY 02/04/14 [History] Fluticasone Nasal [place] [Flonase Nasal [place]] 1 spr EA NOSTRIL DAILY PRN 04/29/19 [History] Gabapentin 600 mg PO TID 11/04/22 [History] hydrOXYzine HCL [Atarax] 50 mg PO HS PRN 11/04/22 [History] Aspirin 81 mg PO DAILY #30 tab 11/11/22 [Rx] Atorvastatin [Lipitor] 40 mg PO DAILY #30 tab 11/11/22 [Rx] Nubeqa 300 Mg Tablet 600 mg PO BID #0 11/11/22 [Rx] carvediloL [Coreg] 3.125 mg PO BID-W/MEALS 30 Days #60 tab 11/11/22 [Rx] Calcium Carb-Vit D 500Mg-5Mcg [Oscal 500+D 5 Mcg (200 Iu)] 1 tab PO TID-W/MEALS 11/24/22 [History] Potassium Chloride [K-Tab ER] 20 meq PO BID #60 tab 11/25/22 [Rx] oxyCODONE-APAP 10-325MG [Percocet 10-325 mg] 1 tab PO Q6H PRN 01/21/23 [History] Magnesium Oxide [Mag-Ox] 400 mg PO DAILY tab 01/26/23 [Rx] DAPTOmycin [Cubicin] 340 mg IV DAILY 03/20/23 [History] Furosemide [Lasix] 20 mg PO DAILY PRN 03/20/23 [History] DAPTOmycin [Cubicin] 500 mg IVPB Q24HR #0 each 03/30/23 [Rx] Ertapenem [INVanz] 1 gm IVPB DAILY each 03/30/23 [Rx] Nystatin 100,000 Unit/gm Powd [Mycostatin Powder] 1 applic TOPICAL BID 10 Days #100 each 03/30/23 [Rx] glipiZIDE [Glucotrol] 10 mg PO AC-BID 30 Days #60 tab 03/30/23 [Rx] lisinopriL [Zestril] 2.5 mg PO DAILY 30 Days #30 tab 03/30/23 [Rx] Follow up Appointment(s)/Referral(s): [facility],Infusion [NON-STAFF] - 03/31/23 9:30 am Farooq Solis MD [Primary Care Provider] - 1-2 days
--- NOTE | 2023-04-06 18:11 | P.PN ---
Subjective Progress Note Date: 03/30/23 Principal diagnosis: Diabetic foot ulcer and osteomyelitis Patient is a 67-year male with a past medical history significant for diabetes mellitus patient did have a Charcot deformity of the right foot chronic nonhealing wound to the right foot plantar aspect with underlying osteomyelitis and also with the left big toe nonhealing wound presented to hospital with weakn ess and multiple falls and worsening pain to the lower back area. On today's evaluation that is 03/30/2023 the patient remains to be afebrile, the patient is breathing comfortably on room air and no need for supplemental oxygen, the patient denies having any chest pain denies any cough or sputum pro duction, patient denies any abdominal pain no nausea vomiting or any diarrhea, patient has pain to the right foot, patient mentioned feeling better and wants to go home and is refusing to go to the retirement Patient did have white count is 7.03, creatinine 1.1 Objective - Vital Signs Vital signs: Vital Signs Temp 98.0 F 03/30/23 12:31 Pulse 68 03/30/23 12:31 Resp 18 03/30/23 12:31 BP 120/70 03/30/23 12:31 Pulse Ox 99 03/30/23 12:31 FiO2 21 03/27/23 15:35 Intake & Output 03/30/23 03/30/23 03/31/23 06:59 18:59 06:59 Intake Total 1620 Output Total 1100 950 Balance 520 -950 Weight 81 kg Intake: IV 600 Sodium Chloride 0.9% 1, 600 000 ml @ 50 mls/hr IV . Q20H [facility] Rx#:[id number] Oral 1020 Output: Urine 1100 950 Other: Voiding Method External Catheter External Catheter # Voids 2 1 # Bowel Movements 1 - Exam GENERAL DESCRIPTION: An elderly male lying in bed in no distress RESPIRATORY SYSTEM: Unlabored breathing , decreased breath sounds at bases HEART: S1 S2 regular rate and rhythm , ABDOMEN: Soft , no tenderness EXTREMITIES: Right foot wound currently dressed no drainage of the dressing - Labs CBC & Chem 7: 03/30/23 07:31 03/30/23 07:31 Labs: Abnormal Lab Results - Last 24 Hours (Table) 03/29/23 03/30/23 03/30/23 Range/Units 20:35 07:03 07:31 RBC 2.89 L (4.40-5.60) X 10*6/uL Hgb 7.8 L (13.0-17.0) g/dL Hct 25.8 L (39.6-50.0) % MCHC 30.2 L (32.0-37.0) g/dL RDW 16.0 H (11.5-14.5) % Lymphocytes # 0.68 L (0.90-5.00) X 10*3/uL BUN/Creatinine Ratio (12.00-20.00) Ratio POC Glucose (mg/dL) 317 H 117 H (70-110) mg/dL Calcium (8.7-10.3) mg/dL Alkaline Phosphatase (41-126) U/L Total Protein (6.2-8.2) g/dL Albumin (3.8-4.9) g/dL Albumin/Globulin Ratio (1.60-3.17) Ratio 03/30/23 03/30/23 Range/Units 07:31 11:56 RBC (4.40-5.60) X 10*6/uL Hgb (13.0-17.0) g/dL Hct (39.6-50.0) % MCHC (32.0-37.0) g/dL RDW (11.5-14.5) % Lymphocytes # (0.90-5.00) X 10*3/uL BUN/Creatinine Ratio 10.00 L (12.00-20.00) Ratio POC Glucose (mg/dL) 127 H (70-110) mg/dL Calcium 8.6 L (8.7-10.3) mg/dL Alkaline Phosphatase 143 H (41-126) U/L Total Protein 5.7 L (6.2-8.2) g/dL Albumin 2.9 L (3.8-4.9) g/dL Albumin/Globulin Ratio 1.04 L (1.60-3.17) Ratio Microbiology - Last 24 Hours (Table) 03/26/23 11:40 Anaerobic Culture - Final Heel - Right 03/26/23 15:40 Anaerobic Culture - Final Foot - Right Assessment and Plan (1) Diabetic foot ulcer Status: Acute Priority: High Code(s): E11.621 - TYPE 2 DIABETES MELLITUS WITH FOOT ULCER; L97.509 - NON-PRESSURE CHRONIC ULCER OTH PRT UNSP FOOT W UNSP SEVERITY SNOMED Code(s): 047183076 (2) Foot osteomyelitis, right Status: Acute Code(s): M86.9 - OSTEOMYELITIS, UNSPECIFIED SNOMED Code(s): 5970669013689528 Plan: 1patient presented to hospital with weakness multiple falls has been complaining of excruciating pain to the lower back area after a fall patient also have a nonhealing wound on the plantar aspect of the right foot as well as the left big toe with recent culture positive for MRSA Enterococcus faecalis and Alcaligenes faecalis for the patient was receiving antibiotic in the outpatient setting, patient did have persistent nonhealing of the wound which is probing down to the bone on the right foot plantar aspect concerning for acute on chronic osteomyelitis 2-patient did have swelling to the right foot dorsum aspect and significant amount of purulent drainage was noticed concerning for abscess, case discussed with vascular surgery and the patient did have a further drainage for now continue the patient on Invanz and daptomycin, cultures appear to be growing Ca ndida which is more likely a colonizer keeping in mind multiple medication patient is on which are interacting with Diflucan , would hold on adding Diflucan at this point, patient has been advised to go to the rehab for rehabilitation as well as local care antibiotic, the patient has been refusing, we're continue with the Invanz and daptomycin in the outpatient setting and close outpatient follow-up Dictation was produced using [employer] dictation software. please excuse any grammatical, word or spelling errors. Time with Patient: Less than 30
== END 2023-03-30 16:50 | disposition home or self-care (01) | DRG 637 ==
LOC: EC 23:46 → 3SCARD 03-20 06:28 → 5NMEDONC 03-21 11:16 → 2SICU 03-22 19:13 → 5NMEDONC 03-23 16:10
PROVIDERS: ADMIT Internal Medicine; ATTEND Internal Medicine
PROC: 0J9Q0ZX Drainage of Right Foot Subcutaneous Tissue and Fascia, Open Approach, Diagnostic (ICD-10-PCS; principal; 2023-03-26)
PROC: 02HV33Z Insertion of Infusion Device into Superior Vena Cava, Percutaneous Approach (ICD-10-PCS; 2023-03-30)
DX: E11.621 Type 2 diabetes mellitus with foot ulcer (principal); A41.9 Sepsis, unspecified organism; G92.8 Other toxic encephalopathy; J96.01 Acute respiratory failure with hypoxia; I50.23 Acute on chronic systolic (congestive) heart failure; C79.51 Secondary malignant neoplasm of bone; I42.9 Cardiomyopathy, unspecified; I5A Non-ischemic myocardial injury (non-traumatic); M86.671 Other chronic osteomyelitis, right ankle and foot; I13.0 Hypertensive heart and chronic kidney disease with heart failure and stage 1 through stage 4 chronic kidney disease, or unspecified chronic kidney disease; E11.65 Type 2 diabetes mellitus with hyperglycemia; Z79.84 Long term (current) use of oral hypoglycemic drugs; C61 Malignant neoplasm of prostate; E11.22 Type 2 diabetes mellitus with diabetic chronic kidney disease; I12.9 Hypertensive chronic kidney disease with stage 1 through stage 4 chronic kidney disease, or unspecified chronic kidney disease; N18.30 Chronic kidney disease, stage 3 unspecified; D63.1 Anemia in chronic kidney disease; E11.40 Type 2 diabetes mellitus with diabetic neuropathy, unspecified; E11.51 Type 2 diabetes mellitus with diabetic peripheral angiopathy without gangrene; E11.610 Type 2 diabetes mellitus with diabetic neuropathic arthropathy; E11.69 Type 2 diabetes mellitus with other specified complication; I95.9 Hypotension, unspecified; I34.0 Nonrheumatic mitral (valve) insufficiency; E78.5 Hyperlipidemia, unspecified; I25.10 Atherosclerotic heart disease of native coronary artery without angina pectoris; I25.2 Old myocardial infarction; J40 Bronchitis, not specified as acute or chronic; L97.519 Non-pressure chronic ulcer of other part of right foot with unspecified severity; R79.89 Other specified abnormal findings of blood chemistry; L97.529 Non-pressure chronic ulcer of other part of left foot with unspecified severity; F17.210 Nicotine dependence, cigarettes, uncomplicated; R29.6 Repeated falls; Z91.81 History of falling; Z79.02 Long term (current) use of antithrombotics/antiplatelets; Z79.82 Long term (current) use of aspirin; Z79.899 Other long term (current) drug therapy; Z83.3 Family history of diabetes mellitus; Z85.528 Personal history of other malignant neoplasm of kidney; Z85.72 Personal history of non-Hodgkin lymphomas; Z86.73 Personal history of transient ischemic attack (TIA), and cerebral infarction without residual deficits; Z90.49 Acquired absence of other specified parts of digestive tract; Z90.5 Acquired absence of kidney; Z92.3 Personal history of irradiation; Z95.1 Presence of aortocoronary bypass graft; Z95.5 Presence of coronary angioplasty implant and graft; Z86.010 Personal history of colon polyps; Z86.14 Personal history of Methicillin resistant Staphylococcus aureus infection; Z88.0 Allergy status to penicillin; Z88.7 Allergy status to serum and vaccine; Z88.8 Allergy status to other drugs, medicaments and biological substances; Z79.891 Long term (current) use of opiate analgesic
CPT/HCPCS: 36415; 36573; 36600; 70450; 71045; 71046; 71275; 72125; 72131; 73502; 78306; 80053; 80202; 81001; 82009; 82140; 82550; 82607; 82728; 82746; 82747; 82805; 83036; 83540; 83550; 83880; 83921; 84145; 84153; 84484; 85025; 85045; 85379; 85652; 86140; 87040; 87070; 87075; 87205; 93005; 93306; 94760; 96361; 96365; 96368; 96372; 96375; 96376; 99291

== ENCOUNTER → 2023-07-23 | Outpatient (CLI) | payer MEDICARE, BC ==
--- NOTE | 2023-07-26 20:28 | PE ---
EXAMINATION TYPE: PET CT fusion skull to thigh DATE OF EXAM: 07/23/2023 COMPARISON: None Prior PET/CT: None at this location HISTORY: Prostate cancer TECHNIQUE: Following the intravenous administration of 6.12 mCi gallium-68 PSMA, whole body images a re performed from the skull base to the midthigh. Images are reviewed on the computer in the coronal , axial, and sagittal planes. Reconstructed rotating images are created on independent workstation a nd reviewed on the computer. A localization and attenuation correction CT is performed in conjuncti on with the PET scan. DLP: 604.74 mGycm SCAN: Initial FINDINGS: NECK: There is normal uptake within the salivary glands THORAX: No suspicious uptake within the soft tissues ABDOMEN: No suspicious uptake within the soft tissues PELVIS: There is intense foci within the posterior lateral right prostate, image 252 OSSEOUS STRUCTURES: There is uptake within the right T2 pedicle image 82. There is focal uptake within the T1 proximal posterior right rib, image 84. There is some uptake which appears to be just posterior to the right distal clavicle. This could be m isalignment infraclavicular focus is not excluded., Image 84. There is uptake in the posterior right proximal fourth rib, image 89 There is focal uptake within the right glenoid, image 94. There is focal uptake posterior right distal transverse process, image 96. At the same level very sub tle uptake may be within the left scapular medial border There is intense focus within the right humeral head, image 100 There is intense uptake within the mid vertebral body thoracic spine, image 107 There is uptake within the transverse process on the left, image 110 2. Foci are within the vertebral body, image 112 X line there is uptake within the right scapular tip , image 1:15 Rib uptake is on the left, image 118. Subtle anterior rib uptake may be present anterior lateral left rib image 118 and within the posterior medial right rib image 118 There is a small focus of radiotracer within the vertebral body image 119 Subtle uptake is within ribs image 126 left lateral mid rib and right lateral slightly posterior righ t rib exam there is uptake within the pedicle of a thoracic vertebral body image 129. Rib uptake is a lso noted in the posterior lateral left at same level. Left pedicle uptake is present image 132 in the thoracic spine There is uptake within the posterior vertebral body image 135. Rib uptake in the posterior lateral ri ght rib is evident. There is uptake within the posterior T11 vertebral body, image 140. Note is made of uptake within the anterior lateral right rib this level. There is a focus of radiotracer within the posterior vertebral body, image 140 There is a focus of radiotracer in the posterior right pars image 149. There is a focus of radiotracer within the anterior vertebral body, image 154 a second slightly lower area uptake is within the same vertebral body image 160 There are 2 focus of radiotracer within the vertebral body on image 173 There is a focus of radiotracer along the left lateral vertebral body image 203. 2 foci of radiotracer within the superior left iliac wing, image 209 there is uptake within the anter ior superior iliac spine on the right Medial iliac wing and right sacral wing uptake is present image 220 there is radiotracer within the m edial left ilium image 2-6. Uptake is within the sacrum anterior left image 2-6. There are 2 radiotracer foci within the mid right iliac region image 231. An additional foci is on th e left. There is intense uptake within the inferior lateral left ischio ramus. Image [address]: Patchy infiltrates are within the bilateral lung wang. Infectious etiology and met astasis should be considered. No abnormal uptake of radiotracer 3 coronary artery calcifications pres ent. Gallbladder surgically absent left kidney appears to be absent inferior pole right renal cyst COMPARISON: None IMPRESSION: 1. Right posterior lateral nodule uptake within the prostate. 2. Extensive small and punctate osseous metastasis through posterior ribs, thoracic and lumbar spine, and within the bilateral ilium.
== END | disposition home or self-care (01) ==
LOC: RADPETMAIN 08:42
PROVIDERS: ATTEND Internal Medicine Hematology & Oncology
DX: C79.51 Secondary malignant neoplasm of bone (principal); C61 Malignant neoplasm of prostate
CPT/HCPCS: 78815; A9596

== ENCOUNTER 2023-12-10 08:00 | Inpatient (IN) | payer MEDICARE, BC ==
[~2023-12-10 08:00] MED LIST changes: +ATROPINE SULFATE 0.1 MG/ML 10ML SYRINGE ONE; +CALCIUM GLUCONATE IN NACL 100 ML IVPB ONE; +CALCIUM GLUCONATE IN NACL 2 GM/100 ML IVPB ONE; -DEXAMETHASONE SOD PHOSPHATE 10 MG/ML 1 ML VIAL IV ONE; +DEXTROSE 5% IN WATER 1,000 ML BAG ONE; +DOPamine DRIP 250 ML IV ONE; +EPINEPHrine 10 ML SYRINGE (0.1 MG/ML) ONE; -HYDROmorphone 0.5 MG/0.5 ML SYRINGE IVP PRN; +INSULIN REGULAR 100 UNIT/ML VIAL (IM/SQ) ONE; -LACTATED RINGERS 1,000 ML IV SCH; -LIDOCAINE 1% (10MG/ML) FOR IV START INTRADERMA PRN; +LIDOCAINE 2% SYG (PF) 100 MG/5 ML ONE; +MIDAZOLAM 1 MG/ML 5 ML VIAL ONE; +NOREPINEPHRINE 1 MG/ML 4 ML VIAL IV ONE; -ONDANSETRON 4 MG/2 ML VIAL IVP ONE; +ROCURONIUM 10 MG/ML (5 ML VIAL) IV ONE; +SODIUM BICARB 8.4% 50 ML SYR (1 MEQ/ML) ONE; +SODIUM BICARB 8.4% 50 ML VIAL (1 MEQ/ML) ONE; +SODIUM CHLORIDE 0.9% 1,000 ML BAG ONE; +SODIUM CHLORIDE 0.9% 250 ML BAG ONE
[2023-12-10] MEDS ORDERED: SODIUM CHLORIDE 0.9% 500 ML BAG ONE (09:00)
[2023-12-10] MEDS ORDERED: LIDOCAINE 1% INJ 10MG/ML (20 ML MDV) ONE (09:00)
[2023-12-10] MEDS ORDERED: CALCIUM GLUCONATE IN NACL 1 GM/100 ML IVPB ONE (09:00)
[2023-12-10] MEDS: IOPAMIDOL-370 200ML BTL INJ ONE (09:02)
[2023-12-10] MEDS ORDERED: HEPARIN SODIUM 1,000 UN/ML (10ML VL) ONE (09:03)
[2023-12-10] MEDS ORDERED: SODIUM BICARB 8.4% 50 ML SYR (1 MEQ/ML) ONE ×2 (10:10→12:35)
[2023-12-10] MEDS ORDERED: propofoL 100 ML IV ONE ×2 (12:37→20:21)
[2023-12-10] MEDS ORDERED: CHLORHEXIDINE GLUCONATE 15 ML CUP MUCOUS MEM ONE (19:53)
[2023-12-10] MEDS ORDERED: POTASSIUM CHLORIDE 100 ML IVPB ONE ×2 (20:50)
[2023-12-11] MEDS ORDERED: propofoL 100 ML IV ONE ×2 (05:46→12:28)
[2023-12-11] MEDS ORDERED: ACETAMINOPHEN TAB 325 MG TAB ONE (06:29)
[2023-12-11] MEDS ORDERED: CALCIUM GLUCONATE IN NACL 2 GM/100 ML IVPB ONE (09:00)
[2023-12-11] MEDS ORDERED: CHLORHEXIDINE GLUCONATE 15 ML CUP MUCOUS MEM ONE (10:13)
[2023-12-11] MEDS ORDERED: ASPIRIN 81 MG ONE (10:13)
[2023-12-11] MEDS ORDERED: cefTRIAXone 1 GM VIAL ONE (10:14)
[2023-12-11] MEDS ORDERED: CLOPIDOGREL 75 MG TAB ONE (10:14)
[2023-12-11] MEDS ORDERED: POTASSIUM CHLORIDE ER 20 MEQ TAB.ER PO ONE (11:08)
[2023-12-11] MEDS ORDERED: POTASSIUM BICARBONATE/CIT AC 20 MEQ TABLET.EFF ONE (11:09)
[2023-12-11] MEDS ORDERED: HEPARIN SODIUM 1,000 UN/ML (10ML VL) ONE (14:31)
[2023-12-11] MEDS ORDERED: IPRATROPIUM-ALBUTEROL 3 ML NEB ONE (18:20)
[2023-12-12] MEDS ORDERED: NOREPINEPHRINE 1 MG/ML 4 ML VIAL IV ONE (00:01)
[2023-12-12] MEDS ORDERED: INSULIN REGULAR U SQ ONE (00:01)
[2023-12-12] MEDS ORDERED: SODIUM CHLORIDE 0.9% 250 ML BAG ONE (00:01)
[2023-12-12] MEDS ORDERED: SODIUM CHLORIDE 0.9% 100 ML BAG IV ONE (00:01)
[2023-12-12] MEDS ORDERED: CHLORHEXIDINE GLUCONATE 15 ML CUP MUCOUS MEM ONE ×2 (00:03→20:35)
[2023-12-12] MEDS ORDERED: propofoL 100 ML IV ONE ×5 (00:07→23:08)
[2023-12-12] MEDS ORDERED: POTASSIUM CHLORIDE 100 ML ONE (02:32)
[2023-12-12] MEDS ORDERED: MAGNESIUM SULFATE-D5W PMX 200 ML IVPB ONE (02:32)
[2023-12-12] MEDS ORDERED: POTASSIUM CHLORIDE 100 ML IVPB ONE (02:32)
[2023-12-12] MEDS ORDERED: ASPIRIN 81 MG ONE (17:15)
[2023-12-12] MEDS ORDERED: PANTOPRAZOLE 40 MG/10 ML VIAL ONE (17:15)
[2023-12-12] MEDS ORDERED: CLOPIDOGREL 75 MG TAB ONE (17:16)
[2023-12-12] MEDS ORDERED: IPRATROPIUM-ALBUTEROL 3 ML NEB ONE ×2 (17:30→17:32)
[2023-12-12] MEDS ORDERED: ACETAMINOPHEN TAB 325 MG TAB ONE (20:35)
[2023-12-13] MEDS ORDERED: ACETAMINOPHEN TAB 325 MG TAB ONE ×2 (00:38→13:55)
[2023-12-13] MEDS ORDERED: cefTRIAXone 1 GM VIAL ONE (02:00)
[2023-12-13] MEDS ORDERED: propofoL 100 ML IV ONE ×5 (03:31→22:38)
[2023-12-13] MEDS ORDERED: ACETAMINOPHEN IV (For NPO) 100 ML ONE (04:44)
[2023-12-13] MEDS ORDERED: IPRATROPIUM-ALBUTEROL 3 ML NEB ONE (07:55)
[2023-12-13] MEDS ORDERED: PANTOPRAZOLE 40 MG/10 ML VIAL ONE (11:52)
[2023-12-13] MEDS ORDERED: CHLORHEXIDINE GLUCONATE 15 ML CUP MUCOUS MEM ONE ×2 (11:52→20:30)
[2023-12-13] MEDS ORDERED: CLOPIDOGREL 75 MG TAB ONE (11:53)
[2023-12-13] MEDS ORDERED: ASPIRIN 81 MG ONE (11:53)
[2023-12-13] MEDS ORDERED: VANCOMYCIN 500 MG VIAL ONE (23:59)
[2023-12-13] MEDS ORDERED: SODIUM CHLORIDE 0.9% 100 ML BAG ONE (23:59)
[2023-12-13] MEDS ORDERED: INSULIN REGULAR 100 UNIT/ML VIAL (IV) ONE (23:59)
[2023-12-13] MEDS ORDERED: VASOPRESSIN 20 UNIT/ML 1 ML VIAL ONE (23:59)
[2023-12-13] MEDS ORDERED: SODIUM CHLORIDE 0.9% 50 ML BAG ONE (23:59)
[2023-12-13] MEDS ORDERED: ANIDULAFUNGIN 100 MG VIAL IVPB ONE (23:59)
[2023-12-13] MEDS ORDERED: NOREPINEPHRINE 1 MG/ML 4 ML VIAL IV ONE (23:59)
[2023-12-13] MEDS ORDERED: MEROPENEM 1 GM VIAL IVPB ONE (23:59)
[2023-12-13] MEDS ORDERED: VANCOMYCIN 1,000 MG VIAL ONE (23:59)
[2023-12-13] MEDS ORDERED: SODIUM CHLORIDE 0.9% 250 ML BAG ONE (23:59)
[2023-12-14] MEDS ORDERED: propofoL 100 ML IV ONE ×3 (02:58→13:45)
[2023-12-14] MEDS ORDERED: IPRATROPIUM-ALBUTEROL 3 ML NEB ONE (05:12)
[2023-12-14] MEDS ORDERED: PANTOPRAZOLE 40 MG/10 ML VIAL ONE (10:42)
[2023-12-14] MEDS ORDERED: ASPIRIN 81 MG ONE (10:43)
[2023-12-14] MEDS ORDERED: CLOPIDOGREL 75 MG TAB ONE (10:43)
[2023-12-14] MEDS ORDERED: CHLORHEXIDINE GLUCONATE 15 ML CUP MUCOUS MEM ONE ×2 (10:43→23:24)
[2023-12-14] MEDS ORDERED: hydrALAZINE HCL 20 MG/ML 1 ML VIAL ONE (13:35)
[2023-12-14] MEDS ORDERED: SODIUM CHLORIDE 0.9% 500 ML BAG ONE (23:59)
[2023-12-14] MEDS ORDERED: SODIUM CHLORIDE 0.9% 50 ML BAG ONE (23:59)
[2023-12-14] MEDS ORDERED: SODIUM CHLORIDE 0.9% 100 ML BAG IV ONE (23:59)
[2023-12-14] MEDS ORDERED: INSULIN REGULAR 100 UNIT/ML VIAL (IV) ONE (23:59)
[2023-12-14] MEDS ORDERED: VASOPRESSIN 20 UNIT/ML 1 ML VIAL ONE (23:59)
[2023-12-14] MEDS ORDERED: VANCOMYCIN 500 MG VIAL ONE (23:59)
[2023-12-14] MEDS ORDERED: VANCOMYCIN 1,000 MG VIAL ONE (23:59)
[2023-12-14] MEDS ORDERED: MEROPENEM 1 GM VIAL IVPB ONE (23:59)
[2023-12-14] MEDS ORDERED: ANIDULAFUNGIN 100 MG VIAL IVPB ONE (23:59)
[2023-12-15] MEDS ORDERED: propofoL 100 ML IV ONE (04:20)
[2023-12-15] MEDS ORDERED: PANTOPRAZOLE 40 MG/10 ML VIAL ONE (08:49)
[2023-12-15] MEDS ORDERED: POTASSIUM BICARBONATE/CIT AC 20 MEQ TABLET.EFF ONE (08:49)
[2023-12-15] MEDS ORDERED: ASPIRIN 81 MG ONE (08:50)
[2023-12-15] MEDS ORDERED: CHLORHEXIDINE GLUCONATE 15 ML CUP MUCOUS MEM ONE (08:50)
[2023-12-15] MEDS ORDERED: CLOPIDOGREL 75 MG TAB ONE (08:50)
[2023-12-15] MEDS ORDERED: MAGNESIUM SULFATE-D5W PMX 100 ML IVPB ONE (08:50)
[2023-12-15] MEDS ORDERED: FUROSEMIDE 10 MG/ML 4 ML VIAL ONE (13:07)
[2023-12-15] MEDS ORDERED: FUROSEMIDE 10 MG/ML 10 ML VIAL ONE (21:31)
[2023-12-15] MEDS ORDERED: SODIUM CHLORIDE 0.9% 250 ML BAG ONE (23:59)
[2023-12-15] MEDS ORDERED: SODIUM CHLORIDE 0.9% 100 ML BAG IV ONE (23:59)
[2023-12-15] MEDS ORDERED: MEROPENEM 1 GM VIAL IVPB ONE (23:59)
[2023-12-15] MEDS ORDERED: VANCOMYCIN 500 MG VIAL ONE (23:59)
[2023-12-15] MEDS ORDERED: SODIUM CHLORIDE 0.9% 50 ML BAG ONE (23:59)
[2023-12-15] MEDS ORDERED: INSULIN ASPART (NovoLOG) 100 UNIT/ML VIAL SQ ONE (23:59)
[2023-12-15] MEDS ORDERED: VANCOMYCIN 1,000 MG VIAL ONE (23:59)
[2023-12-15] MEDS ORDERED: ANIDULAFUNGIN 100 MG VIAL IVPB ONE (23:59)
[2023-12-15] MEDS ORDERED: VASOPRESSIN 20 UNIT/ML 1 ML VIAL ONE (23:59)
[2023-12-16] MEDS ORDERED: INSULIN ASPART (NovoLOG) 100 UNIT/ML VIAL SQ ONE ×2 (00:48→07:04)
[2023-12-16] MEDS ORDERED: EPINEPHrine 10 ML SYRINGE (0.1 MG/ML) ONE ×2 (04:33→06:19)
[2023-12-16] MEDS ORDERED: ATROPINE SULFATE 0.1 MG/ML 10ML SYRINGE ONE (04:33)
[2023-12-16] MEDS ORDERED: LIDOCAINE 2% SYG (PF) 100 MG/5 ML ONE (04:33)
[2023-12-16] MEDS ORDERED: propofoL 100 ML IV ONE ×2 (04:40→08:31)
[2023-12-16] MEDS ORDERED: POTASSIUM CHLORIDE 100 ML ONE (05:35)
[2023-12-16] MEDS ORDERED: SODIUM BICARB 8.4% 50 ML SYR (1 MEQ/ML) ONE ×3 (05:48→06:19)
--- NOTE | 2024-01-11 10:43 | CC ---
CARDIAC CATHETERIZATION REPORT PERFORMING PHYSICIAN: Devin Novak MD. PROCEDURES PERFORMED: 1. Selective left and right coronary angiogram and MCRAE to LAD angiogram and SVG to LCX angiogram. 2. Left heart catheterization. 3. Successful placement of transvenous temporary pacemaker. 4. Ultrasound-guided access of the right common femoral vein and right common femoral artery. INDICATION: Acute cyq-DA-amxhmffub myocardial infarction. COMPLICATIONS: None. LEVEL OF SEDATION: Moderate, with sedation length of 39 minutes. PROCEDURE DESCRIPTION: After obtaining an informed consent, the patient was brought to the cardiac component lab tech. The right common femoral artery and vein were cannulated using micropuncture technique under ultrasound guidance and I placed a 6-Armenian sheath in both. I did under fluoroscopic guidance successful placement of transvenous pacer. After that, I did selective left and right coronary angiogram and MCRAE to LAD angiogram and SVG to OM angiogram using JL4 and JR4 catheters. The procedure was completed with no complication. After that, left heart catheterization was performed using a pigtail catheter. SELECTIVE CORONARY ANGIOGRAM: 1. The left main has ltvy-py-fxodnvtg disease. Bifurcates into an LCX and LAD. 2. The LCX is occluded in the proximal portion. 3. The LAD is subtotally occluded in the mid portion. CORONARY BYPASS ANGIOGRAM: 1. MCRAE to LAD is patent with severe disease involving the MCRAE distal to anastomosis. 2. The SVG to LCX is patent. HEMODYNAMICS: The LVEDP was 30 mmHg with no significant gradient across aortic valve. CONCLUSION: Severe CAD as described above. POSTPROCEDURE MANAGEMENT: Consider medical treatment at this point and follow up with the patient. MMODL / IJN: [id number] /
--- NOTE | 2024-01-11 14:00 | XR ---
Patient Aba Neff ID [id number] Order # EXAMINATION TYPE: XR chest 1V DATE OF EXAM: 12/10/2023 COMPARISON: No comparison on the downtime PACS INDICATION: Postintubation difficulty breathing TECHNIQUE: Single frontal view of the chest is obtained. FINDINGS: The heart size is mildly prominent. The pulmonary vasculature is prominent. Increased perihilar infiltrate is present. Endotracheal tube tip is 3.9 cm above the mikey. IMPRESSION: 1. Clinical correlation for congestive heart failure. 2. ET tube tip 3.9 cm above mikey.
--- NOTE | 2024-01-12 09:46 | XR ---
EXAMINATION TYPE: XR chest 1V DATE OF EXAM: 12/14/2023 COMPARISON: 12/13/2023 HISTORY: 68-year-old male intubated TECHNIQUE: Single frontal view of the chest is obtained. FINDINGS: ET tube is satisfactory. NG tube tip located below the diaphragm. Median sternotomy wires. Left subclavian CVC tip at the cavoatrial junction. Heart mildly enlarged. Mild hyperinflation but w ith diffuse interstitial and patchy opacities though with improvement from prior exam. No sizable ple ural effusion on the frontal view. Subtle nodular density at the periphery of the right upper lobe ma y be superimposition artifact. Median sternotomy wires and post-CABG clips. IMPRESSION: 1. Patchy pulmonary edema remains but is improving from prior. 2. Either a pulmonary nodule or superimposition artifact at the right upper lobe. The latter is favor ed. Attention on follow-up.
--- NOTE | 2024-01-12 10:55 | XR ---
Aba Neff E ID: [id number] : 1955 EXAMINATION TYPE: XR chest 1V DATE OF EXAM: 12/15/2023 COMPARISON: 12/14/2023 HISTORY: 68-year-old ICU follow-up, shortness of breath TECHNIQUE: Single frontal view of the chest is obtained. FINDINGS: ET and NG tubes are satisfactory. Left subclavian CVC tip at the lower SVC. A right ventricular pacer lead is noted coming up from the IVC. Heart mildly enlarged. Hyperinflation. Diffuse interstitial de nsity. Right mid and lower lung and left basilar opacity persists with some improving aeration on the left side. Median sternotomy wires and post-CABG clips. IMPRESSION: COPD with ongoing mid and lower lung opacities, right greater than left. Though with op acities improving at the left base.
--- NOTE | 2024-01-12 13:19 | XR ---
Patient Aba Neff E ID [id number] Order # EXAMINATION TYPE: XR chest 1V DATE OF EXAM: 12/11/2023 COMPARISON: 12/10/2023 INDICATION: Mechanical ventilation difficulty breathing TECHNIQUE: Single frontal view of the chest is obtained. FINDINGS: The heart size is enlarged. The pulmonary vasculature is indistinct. Basilar infiltrates are present. There is silhouetting of the diaphragms. Endotracheal tube is in 4.9 cm above the mikey. Nasogastric tube tip is in the left upper quadrant o f the abdomen. Sternotomy wires are in the midline IMPRESSION: 1. Bibasilar infiltrates. Small effusions may be present. 2. Lines and catheters discussed above.
--- NOTE | 2024-01-12 13:50 | XR ---
EXAMINATION TYPE: XR chest 1V DATE OF EXAM: 12/10/2023 COMPARISON: No comparison on the downtime PACS INDICATION: Postintubation difficultly breathing TECHNIQUE: Single frontal view of the chest is obtained. FINDINGS: The heart size is mildly prominent The pulmonary vasculature is prominent Increased perihilar infiltrate is present Endotracheal tube tip is 3.9 cm above the mikey. IMPRESSION: 1. Clinical correlation for congestive heart failure. 2. ET tube tip 3.9 cm above mikey. [facility], , 01/12/2024 1:48 PM
--- NOTE | 2024-01-12 15:45 | XR ---
Patient Aba Neff E ID [id number] Order # EXAMINATION TYPE: XR chest 1V DATE OF EXAM: 12/12/2023 COMPARISON: No comparison available on downtime PACS. INDICATION: Intubation difficulty breathing TECHNIQUE: Single frontal view of the chest is obtained. FINDINGS: The heart size is prominent. The pulmonary vasculature is prominent. Patchy bilateral lung filtrates are present. These are worsening over the interval.. Correlate for pn eumonia and pulmonary edema. Continued follow-up is recommended. Endotracheal tube tip is above. Nasogastric tip is in the left upper quadrant of the abdomen. Left ce ntral venous catheter tip is within the superior vena cava. IMPRESSION: 1. Worsening bilateral lung infiltrates. Correlate for pulmonary edema and pneumonia. 2. Lines and catheters discussed above
--- NOTE | 2024-01-12 18:30 | US ---
EXAMINATION TYPE: US arterial LE multi level DATE OF EXAM: 12/17/2023 COMPARISON: NONE CLINICAL INDICATION: Unknown, old with history of ; RN unable to obtain DPA pulse. Rt amputee above knee. ICU patient on vent, unable to obtain history Lt KIAN: 0.82 IMPRESSION: Mild arterial vascular disease present.
--- NOTE | 2024-01-13 08:51 | XR ---
Patient Aba Neff E ID [id number] Order # EXAMINATION TYPE: XR chest 1V DATE OF EXAM: 12/13/2023 COMPARISON: 12/12/2023 INDICATION: Short of breath TECHNIQUE: Single frontal view of the chest is obtained. FINDINGS: The heart size is enlarged. The pulmonary vasculature is normal. Diffuse patchy infiltrate is present bilaterally. This may have some improvement over the interval. Endotracheal tube tip is above the mikey. Nasogastric tube tip is in the left upper quadrant of the abdomen. Sternotomy wires are in the midline IMPRESSION: 1. No acute pulmonary process.
--- NOTE | 2024-01-27 15:42 | PCN ---
PROCEDURE NOTE PREOPERATIVE DIAGNOSIS: Acute chronic renal failure. POSTOPERATIVE DIAGNOSIS: Acute chronic renal failure. PROCEDURE PERFORMED: Ultrasound-guided dialysis catheter placed, left femoral approach. DESCRIPTION OF PROCEDURE: Left groin was prepped and drapes applied in a sterile manner. 1% lidocaine was injected in groin area. Ultrasound-guided micropuncture introduced in left femoral vein. Micropuncture guidewire was passed. Then we placed a 4-[place] sheath, then we passed a regular guidewire without any resistance. The dilator was advanced on top of the guidewire, then we placed a dialysis catheter on the top of the guidewire. Guidewire was removed, flushed with heparin saline and hep-locked, secured with 3-0 nylon dressing applied. The patient tolerated the procedure well. MMODL / IJN: [id number] /
--- NOTE | 2024-01-27 15:42 | CONS ---
CONSULTATION The patient has a history of acute chronic renal failure. This patient came with history of myocardial infarction with respiratory failure. The patient has been intubated, consulted for placement of a dialysis catheter. 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 The patient has stage 4 kidney disease. PHYSICAL EXAMINATION: GENERAL: The patient was seen in the intensive care unit. NECK: Supple. CHEST: Has crackles bilateral. HEART: First and second sounds present. ABDOMEN: Soft, nontender. VASCULAR: Femorals are 1+ bilaterally. The patient has a right BK amputation. PLAN: Placement of a dialysis catheter. Risks and complications discussed. MMODL / IJN: [id number] /
--- NOTE | 2024-01-27 20:45 | XR ---
EXAM: XR Chest, 1 View CLINICAL HISTORY: Intubation, code blue TECHNIQUE: Frontal view of the chest. COMPARISON: No relevant prior studies available. FINDINGS: Lungs: Large amount of airspace opacities throughout both lungs. Pleural space:Unremarkable. Mediastinum:Unremarkable. Normal mediastinal contour. Bones/joints:No acute findings. Vasculature: calcified aorta. Tubes, lines and devices: Tip of endotracheal tube is about 4 cmabove the mikey. Tip of enteric tube reaches the bodyof the stomach, not completely included in the [id number]. Tip of left central venous catheter projects over the region of superior vena cava and about 1.5 cm below the level of the mikey. IMPRESSION: 1. Supporting tubes and line are in place. No pneumothorax. 2. Large amount of airspace opacities throughout both lungs. Radiologist: Roberto Mena M.D. Electronically Signed: 12/16/23 06:04 Study first marked ready to read at 05:48, study last marked ready to read at 05:48, initial results transmitted at 06:04 Results also transmitted to Film Room, Film Room @ [phone] (Fax [facility]
== END 2023-12-16 10:51 | disposition expired ==
LOC: 2SICU 08:00 → UNDOADMIN 09:25 → UNDODISIN 12-16 10:51
PROVIDERS: ADMIT Hospitalist; ATTEND Hospitalist
PROC: 5A1955Z Respiratory Ventilation, Greater than 96 Consecutive Hours (ICD-10-PCS; 2023-12-10)
PROC: B2131ZZ Fluoroscopy of Multiple Coronary Artery Bypass Grafts using Low Osmolar Contrast (ICD-10-PCS; 2023-12-10)
PROC: B2111ZZ Fluoroscopy of Multiple Coronary Arteries using Low Osmolar Contrast (ICD-10-PCS; 2023-12-10)
PROC: B2151ZZ Fluoroscopy of Left Heart using Low Osmolar Contrast (ICD-10-PCS; 2023-12-10)
PROC: 0BH17EZ Insertion of Endotracheal Airway into Trachea, Via Natural or Artificial Opening (ICD-10-PCS; principal; 2023-12-10 08:23)
PROC: 4A023N7 Measurement of Cardiac Sampling and Pressure, Left Heart, Percutaneous Approach (ICD-10-PCS; 2023-12-10 08:23)
PROC: 5A1D70Z Performance of Urinary Filtration, Intermittent, Less than 6 Hours Per Day (ICD-10-PCS; 2023-12-13)
PROC: 03HY32Z Insertion of Monitoring Device into Upper Artery, Percutaneous Approach (ICD-10-PCS; 2023-12-15)
PROC: 4A133B1 Monitoring of Arterial Pressure, Peripheral, Percutaneous Approach (ICD-10-PCS; 2023-12-15)
PROC: 4A133J1 Monitoring of Arterial Pulse, Peripheral, Percutaneous Approach (ICD-10-PCS; 2023-12-15)
PROC: 02HV33Z Insertion of Infusion Device into Superior Vena Cava, Percutaneous Approach (ICD-10-PCS; 2023-12-15)
DX: R00.1 Bradycardia, unspecified (principal); B37.7 Candidal sepsis; I21.A1 Myocardial infarction type 2; J96.01 Acute respiratory failure with hypoxia; N17.0 Acute kidney failure with tubular necrosis; R65.21 Severe sepsis with septic shock; G92.8 Other toxic encephalopathy; E87.20 Acidosis, unspecified; C64.9 Malignant neoplasm of unspecified kidney, except renal pelvis; I13.0 Hypertensive heart and chronic kidney disease with heart failure and stage 1 through stage 4 chronic kidney disease, or unspecified chronic kidney disease; I50.22 Chronic systolic (congestive) heart failure; I42.9 Cardiomyopathy, unspecified; Z95.1 Presence of aortocoronary bypass graft; I25.10 Atherosclerotic heart disease of native coronary artery without angina pectoris; E11.22 Type 2 diabetes mellitus with diabetic chronic kidney disease; N18.30 Chronic kidney disease, stage 3 unspecified; E11.40 Type 2 diabetes mellitus with diabetic neuropathy, unspecified; I25.5 Ischemic cardiomyopathy; E87.70 Fluid overload, unspecified; E87.5 Hyperkalemia; E11.65 Type 2 diabetes mellitus with hyperglycemia; R57.0 Cardiogenic shock; Z66 Do not resuscitate; Z87.891 Personal history of nicotine dependence; Z85.46 Personal history of malignant neoplasm of prostate; Z79.02 Long term (current) use of antithrombotics/antiplatelets; Z79.82 Long term (current) use of aspirin; Z79.85 Long-term (current) use of injectable non-insulin antidiabetic drugs; Z79.899 Other long term (current) drug therapy; Z89.611 Acquired absence of right leg above knee
CPT/HCPCS: 33210; 36600; 71045; 86706; 87040; 87070; 87077; 87186; 87205; 87340; 90935; 92950; 93005; 93459; 93923; 94002; 94003; 94640; 94667; 96374; 96375; 99291